=== PATIENT | female | born 1940 | race Caucasian/White ===

== ENCOUNTER → 2016-06-09 | Outpatient (CLI) | payer BC ==
[2016-06-09 16:44] LABS: BASO % 0.6 %; BASO ABS # 0.04 K/uL (0-0.2); COMPLETE YES; EOS % 4.2 %; HEMATOCRIT 33.8 % (37-47); IG% 0.3 %; LYMPH % 25.2 %; LYMPH ABS # 1.68 K/uL (1.2-3.4); MEAN CELL VOLUME 91.4 fL (80-100); MEAN CORPUSCULAR HEMOGLOBIN 29.7 pg (25-34); MEAN CORPUSCULAR HGB CONC 32.5 g/dl (32-36); MEAN PLATELET VOLUME 9.4 fL (7.4-10.4); MONO % 14.4 %; NEUT % 55.3 %; PLATELET COUNT 266 K/uL (130-400); WHITE BLOOD COUNT 6.66 K/uL (4.8-10.8)
[2016-06-09 16:51] LABS: ALT/SGPT 27 U/L (12-78); BLOOD UREA NITROGEN 26 mg/dl (7-18); BUN/CREATININE RATIO 23.7 (10-20); CALCIUM 8.5 mg/dl (8.5-10.1); CARBON DIOXIDE 26 mmol/L (21-32); CHLORIDE 108 mmol/L (98-107); CHOLESTEROL 245 mg/dl (0-200); GLUCOSE 77 mg/dl (70-99); POTASSIUM 3.9 mmol/L (3.5-5.1); SODIUM 140 mmol/L (136-145)
[2016-06-09 16:54] LABS: ALKALINE PHOSPHATASE 121 U/L (45-117); AST/SGOT 20 U/L (15-37); CHOLESTEROL/HDL RATIO 3.4; HDL CHOLESTEROL 73 mg/dl; LDL CHOLESTEROL CALCULATED 125 mg/dl; PHOSPHORUS 3.6 mg/dl (2.5-4.9); TRIGLYCERIDES 233 mg/dl (0-150); VERY LOW DENSITY LIPOPROT CALC 47 mg/dl
== END | disposition home or self-care (01) ==
LOC: C.LABPBG 13:49
PROVIDERS: ATTEND Internal Medicine
DX: M06.09 Rheumatoid arthritis without rheumatoid factor, multiple sites (principal); Z79.899 Other long term (current) drug therapy; N18.3 Chronic kidney disease, stage 3 (moderate)

== ENCOUNTER → 2016-09-22 | Outpatient (CLI) | payer BC ==
[2016-09-22 16:48] LABS: BASO % 0.7 %; BASO ABS # 0.04 K/uL (0-0.2); COMPLETE YES; EOS % 5.5 %; HEMATOCRIT 35.9 % (37-47); IG% 0.3 %; LYMPH % 22.3 %; LYMPH ABS # 1.34 K/uL (1.2-3.4); MEAN CELL VOLUME 90.9 fL (80-100); MEAN CORPUSCULAR HEMOGLOBIN 28.4 pg (25-34); MEAN CORPUSCULAR HGB CONC 31.2 g/dl (32-36); MONO % 12.3 %; NEUT % 58.9 %; PLATELET COUNT 302 K/uL (130-400); RED BLOOD COUNT 3.95 M/uL (4.2-5.4)
[2016-09-22 16:58] LABS: ALT/SGPT 29 U/L (12-78); AST/SGOT 23 U/L (15-37); BLOOD UREA NITROGEN 24 mg/dl (7-18); BUN/CREATININE RATIO 23.6 (10-20); CALCIUM 8.7 mg/dl (8.5-10.1); CARBON DIOXIDE 25 mmol/L (21-32); CHLORIDE 109 mmol/L (98-107); GLUCOSE 86 mg/dl (70-99); SODIUM 142 mmol/L (136-145)
[2016-09-22 17:08] LABS: ALB/GLOB RATIO 0.9 (0.9-2); ALKALINE PHOSPHATASE 116 U/L (45-117)
[2016-09-22 17:09] LABS: URINE PROTIEN/CREAT RATIO 0.2 (0-0.2); URINE TOTAL PROTEIN 24.9 mg/dl (0-11.9)
== END | disposition home or self-care (01) ==
LOC: C.LABPBG 11:51
PROVIDERS: ATTEND Internal Medicine
DX: R63.5 Abnormal weight gain (principal); N18.3 Chronic kidney disease, stage 3 (moderate); I10 Essential (primary) hypertension; M06.09 Rheumatoid arthritis without rheumatoid factor, multiple sites; Z79.899 Other long term (current) drug therapy

== ENCOUNTER → 2016-11-15 | Outpatient (CLI) | payer BC ==
[2016-11-15 12:23] LABS: BASO % 0.5 %; BASO ABS # 0.03 K/uL (0-0.2); COMPLETE YES; EOS % 0.2 %; HEMATOCRIT 33.6 % (37-47); IG% 0.2 %; LYMPH % 11.1 %; LYMPH ABS # 0.73 K/uL (1.2-3.4); MEAN CELL VOLUME 92.8 fL (80-100); MEAN CORPUSCULAR HEMOGLOBIN 29.8 pg (25-34); MEAN CORPUSCULAR HGB CONC 32.1 g/dl (32-36); MEAN PLATELET VOLUME 9.3 fL (7.4-10.4); MONO % 2.7 %; NEUT % 85.3 %; PLATELET COUNT 340 K/uL (130-400); RED BLOOD COUNT 3.62 M/uL (4.2-5.4); WHITE BLOOD COUNT 6.56 K/uL (4.8-10.8)
[2016-11-15 12:46] LABS: ALT/SGPT 26 U/L (12-78); BLOOD UREA NITROGEN 27 mg/dl (7-18); BUN/CREATININE RATIO 29.2 (10-20); CARBON DIOXIDE 24 mmol/L (21-32); CHLORIDE 109 mmol/L (98-107); CREATININE 0.93 mg/dl (0.60-1.20); GLUCOSE 133 mg/dl (70-99); POTASSIUM 4.2 mmol/L (3.5-5.1); SODIUM 139 mmol/L (136-145)
[2016-11-15 12:49] LABS: ALB/GLOB RATIO 0.9 (0.9-2); ALKALINE PHOSPHATASE 91 U/L (45-117); AST/SGOT 19 U/L (15-37)
== END | disposition home or self-care (01) ==
LOC: C.LABPBG 08:41
PROVIDERS: ATTEND Internal Medicine
DX: M06.09 Rheumatoid arthritis without rheumatoid factor, multiple sites (principal)

== ENCOUNTER → 2017-01-05 | Outpatient (CLI) | payer BC ==
[2017-01-05 17:12] LABS: BASO % 0.6 %; BASO ABS # 0.04 K/uL (0-0.2); COMPLETE YES; EOS % 9.2 %; HEMATOCRIT 33.4 % (37-47); IG% 0.6 %; LYMPH % 28.7 %; LYMPH ABS # 1.87 K/uL (1.2-3.4); MEAN CELL VOLUME 95.4 fL (80-100); MEAN CORPUSCULAR HEMOGLOBIN 30.3 pg (25-34); MEAN CORPUSCULAR HGB CONC 31.7 g/dl (32-36); MEAN PLATELET VOLUME 9.3 fL (7.4-10.4); MONO % 14.1 %; NEUT % 46.8 %; PLATELET COUNT 303 K/uL (130-400); WHITE BLOOD COUNT 6.51 K/uL (4.8-10.8)
[2017-01-05 17:24] LABS: ALT/SGPT 25 U/L (12-78); BLOOD UREA NITROGEN 20 mg/dl (7-18); CARBON DIOXIDE 25 mmol/L (21-32); CHLORIDE 109 mmol/L (98-107); CREATININE 1.09 mg/dl (0.60-1.20); GLUCOSE 94 mg/dl (70-99); POTASSIUM 3.6 mmol/L (3.5-5.1); SODIUM 141 mmol/L (136-145)
[2017-01-05 17:27] LABS: ALB/GLOB RATIO 1.1 (0.9-2); ALKALINE PHOSPHATASE 111 U/L (45-117); AST/SGOT 23 U/L (15-37)
== END | disposition home or self-care (01) ==
LOC: C.LABPBG 15:03
PROVIDERS: ATTEND Internal Medicine
DX: Z51.81 Encounter for therapeutic drug level monitoring (principal); Z79.899 Other long term (current) drug therapy; M06.09 Rheumatoid arthritis without rheumatoid factor, multiple sites; N18.3 Chronic kidney disease, stage 3 (moderate)

== ENCOUNTER 2017-03-23 17:34 | Inpatient (IN) | payer BC, OTHER ==
[~2017-03-23] VITALS: Ht 162.6 cm; Wt 69.7 kg
[2017-03-23] MEDS ORDERED: ACETAMINOPHEN IV 650 MG in EMPTY BAG 0 ML IV PRN (22:45)
[2017-03-23 23:08] LABS: BASO ABS # 0.04 K/uL (0-0.2); EOS % 2.6 %; EOS ABS # 0.11 K/uL (0-0.5); HEMATOCRIT 26.1 % (37-47); HEMOGLOBIN 8.3 g/dL (12.0-16.0); IG# 0.02 K/uL (0.00-0.02); LYMPH % 36.2 %; LYMPH ABS # 1.51 K/uL (1.2-3.4); MEAN CORPUSCULAR HEMOGLOBIN 30.9 pg (25-34); MEAN PLATELET VOLUME 8.5 fL (7.4-10.4); MONO % 12.2 %; MONO ABS # 0.51 K/uL (0.11-0.59); NEUT % 47.5 %; NEUT ABS # 1.98 K/uL (1.4-6.5); NUCLEATED RED BLOOD CELL ABS 0.03 K/uL (0-0); PLATELET COUNT 340 K/uL (130-400); RED CELL DISTRIBUTION WIDTH SD 58.5 fL (36.4-46.3); WHITE BLOOD COUNT 4.17 K/uL (4.8-10.8)
[2017-03-23] MEDS ORDERED: LEVO25TA PO (23:08)
[2017-03-23] MEDS ORDERED: BRIM0.2S OP (23:08)
[2017-03-23] MEDS ORDERED: DSY100 OR (23:08)
[2017-03-23] MEDS ORDERED: DVN80 PO (23:08)
[2017-03-23] MEDS ORDERED: NIFE60TA66 PO (23:08)
[2017-03-23] MEDS ORDERED: CRG625 OR (23:08)
[2017-03-23] MEDS ORDERED: LEFL20TA PO (23:08)
[2017-03-23] MEDS ORDERED: PANT40TA PO (23:08)
[2017-03-23] MEDS ORDERED: METH2.5T PO (23:08)
[2017-03-23] MEDS ORDERED: FLV1 OR (23:08)
[2017-03-23] MEDS ORDERED: PRD5 OR (23:08)
[2017-03-23] MEDS ORDERED: OXYC-57 PO (23:08)
[2017-03-23 23:12] VITALS: BMI 25.8
[2017-03-23 23:13] VITALS: BP 146/76; PULSE 72; TEMP 36.3; O2SAT 94
[2017-03-23] MEDS ORDERED: TRAZODONE HCL 50 MG TAB PO PRN (23:15)
[2017-03-23 23:20] LABS: MEAN CORPUSCULAR HGB CONC 31.8 g/dl (32-36)
[2017-03-23 23:24] VITALS: Ht 162.6 cm; Wt 69.7 kg
[2017-03-23 23:25] LABS: INR 1.1 (0.9-1.1); PTT PATIENT 24.3 SECONDS (21.0-31.0)
[2017-03-23 23:42] LABS: ALBUMIN 2.8 gm/dl (3.4-5.0); CALCIUM 8.6 mg/dl (8.5-10.1); CREATININE 1.05 mg/dl (0.60-1.20); POTASSIUM 3.6 mmol/L (3.5-5.1)
[2017-03-24] VITALS (8 sets, daily range): BP systolic 132–200; BP diastolic 75–97; PULSE 96–121; TEMP 36.6–36.8; O2SAT 95–100
[2017-03-24] MEDS: SODIUM CHLORIDE 0.9% 1000ML 1,000 ML IV SCH ×2 (00:06→11:46)
[2017-03-24] MEDS ORDERED: HEPARIN IV LOW DOSE NO BOLUS SCH (00:14)
[2017-03-24] MEDS: ONDANSETRON INJ 2 MG/ML 2 ML VIAL IV PRN ×3 (00:23→15:31)
[2017-03-24] MEDS ORDERED: HEPARIN 25,000 UNIT/500ML D5W 500 ML IV PRN (01:15)
--- NOTE | 2017-03-24 01:45 | History and Physical ---
History & Physical Date & Time of Service: Mar 24, 2017 at 01:37 Chief Complaint: Abdominal Pain Primary Care Physician: Kj Minor M.D. History of Present Illness Source: patient This is a 76 year old who was transferred as direct admission from [facility] after being treated for left lower quadrant abdominal pain with CT finding of diverticulosis. The primary reason for the transfer from [facility] as per the hospitalist physician who accepted the transfer at [facility] was that [facility] lacked specialty services such as Gastroenterology service. In addition patient was treated for hypokalemia with potassium supplements, hypertension, anemia workup. Other medical issues is rheumatoid arthritis for which patient takes methotrexate weekly and history of right lung nodule other history of pancreatitis in the past. In addition there is a H/P report from [facility] dated 01/19/18 that reported "Partial occlusive thrombosis within the superficial venous structures at the right popliteal fossa and left calf." When patient arrived to [facility], heparin drip was started due to this report of DVT. However, the ultrasound performed at [facility] of lower extremities and heparin drip was subsequently stopped Family History Hypertension FATHER Social History Smoking Status: Never Smoker Allergies Coded Allergies: Aspirin (Verified Allergy, Severe, ANAPHYLAXIS, 03/23/17) Home Medications Scheduled Brimonidine Tartrate-Timolol M (Combigan), 1 DROP OP BID Carvedilol (Carvedilol), 1 TAB OR BID Folic Acid (Folic Acid), 1 TAB OR DAILY Leflunomide (Arava), 1 TAB PO DAILY Levothyroxine Sodium (Synthroid), 25 MCG PO DAILY Methotrexate Sodium (Methotrexate), 2.5 MG PO WK Nifedipine (Nifedipine Er), 1 TAB PO DAILY Pantoprazole Sodium (Protonix), 40 MG PO DAILY Prednisone (Prednisone), 2.5 MG OR DAILY Valsartan (Diovan), 80 MG PO DAILY Scheduled PRN Oxycodone/Acetaminophen 5MG/325MG (Percocet 5MG/325MG), 1 TABLET PO Q6H PRN for Pain Trazodone HCl (Trazodone HCl), 50 MG OR DAILY PRN for Pain Review of Systems Constitutional: No fever Eyes: No worsening of vision, No eye pain, No redness, No discharge, No diplopia, No problem reported ENT: No hearing loss, No unusual epistaxis, No nasal symptoms, No sore throat, No tinnitus, No dental problems, No trouble swallowing, No problem reported Respiratory: No cough, No sputum, No wheezing, No shortness of breath, No dyspnea on exertion, No dyspnea at rest, No hemoptysis, No problem reported Cardiovascular: No chest pain, No orthopnea, No PND, No edema, No claudication , No palpitations, No problem reported Abdomen: + pain, + nausea, No vomiting, No diarrhea, No constipation, No GI bleeding Musculoskeletal: No joint pain, No muscle pain, No swelling, No calf pain, No problem reported Genitourinary - Female: No dysuria Neurologic: No paralysis, No numbness/tingling Psychiatric: No substance abuse Endocrine: No fatigue Hematologic / Lymphatic: No abnormal bleeding/bruising, No clotting problems Integumentary: No rash, No itch Physical Exam Vital Signs Date Time Temp Pulse Resp B/P (MAP) Pulse Ox O2 Delivery O2 Flow Rate FiO2 03/24/17 00:29 36.8 97 16 145/75 (98) 97 Room Air 03/24/17 00:00 Room Air 03/23/17 23:24 Room Air 03/23/17 23:13 36.3 72 18 146/76 (99) 94 Room Air General Appearance: no apparent distress Head: normocephalic, atraumatic Eyes: normal inspection, EOMI, sclerae normal ENT: normal ENT inspection, hearing grossly normal, pharynx normal Neck: supple, thyroid normal, no JVD, trachea midline Respiratory/Chest: chest non-tender, lungs clear, normal breath sounds, no respiratory distress, no accessory muscle use Cardiovascular: regular rate, rhythm, no edema, no JVD, normal peripheral pulses Abdomen/GI: normal bowel sounds, soft, + pertinent finding (tenderness of left lower quadrant) Back: normal inspection, no CVA tenderness, normal range of motion Extremities/Musculoskelatal: normal inspection, no calf tenderness, no pedal edema, non-tender Neurologic/Psych: no motor/sensory deficits, alert, normal mood/affect, oriented x 3 Skin: normal color, warm/dry, no rash Diagnostics Laboratory Results Results Past 24 Hours Test 03/23/17 22:56 Range/Units White Blood Count 4.17 4.8-10.8 K/uL Red Blood Count 2.69 4.2-5.4 M/uL Hemoglobin 8.3 12.0-16.0 g/dL Hematocrit 26.1 37-47 % Mean Corpuscular Volume 97.0 80-100 fL Mean Corpuscular Hemoglobin 30.9 25-34 pg Mean Corpuscular Hemoglobin Concent 31.8 32-36 g/dl Platelet Count 340 130-400 K/uL Mean Platelet Volume 8.5 7.4-10.4 fL Neutrophils (%) (Auto) 47.5 % Lymphocytes (%) (Auto) 36.2 % Monocytes (%) (Auto) 12.2 % Eosinophils (%) (Auto) 2.6 % Basophils (%) (Auto) 1.0 % Neutrophils # (Auto) 1.98 1.4-6.5 K/uL Lymphocytes # (Auto) 1.51 1.2-3.4 K/uL Monocytes # (Auto) 0.51 0.11-0.59 K/uL Eosinophils # (Auto) 0.11 0-0.5 K/uL Basophils # (Auto) 0.04 0-0.2 K/uL RDW Standard Deviation 58.5 36.4-46.3 fL RDW Coefficient of Variation 17.0 11.5-14.5 % Immature Granulocyte % (Auto) 0.5 % Immature Granulocyte # (Auto) 0.02 0.00-0.02 K/uL Nucleated RBC Absolute Count (auto) 0.03 0-0 K/uL Nucleated Red Blood Cells % 0.8 % Polychromasia 1+ Anisocytosis PRESENT Prothrombin Time 11.1 9.0-12.0 SECONDS Prothromb Time International Ratio 1.1 0.9-1.1 Activated Partial Thromboplast Time 24.3 21.0-31.0 SECONDS Partial Thromboplastin Ratio 0.9 Sodium Level 140 136-145 mmol/L Potassium Level 3.6 3.5-5.1 mmol/L Chloride Level 112 98-107 mmol/L Carbon Dioxide Level 20 21-32 mmol/L Anion Gap 8.0 3-11 mmol/L Blood Urea Nitrogen 16 7-18 mg/dl Creatinine 1.05 0.60-1.20 mg/dl Est Creatinine Clear Calc Drug Dose 44.6 ml/min Estimated GFR () 60.6 Estimated GFR (Non- 52.3 BUN/Creatinine Ratio 15.0 10-20 Random Glucose 105 70-99 mg/dl Lactic Acid Level 0.7 0.4-2.0 mmol/L Calcium Level 8.6 8.5-10.1 mg/dl Magnesium Level 1.9 1.8-2.4 mg/dl Total Bilirubin 0.5 0.2-1 mg/dl Aspartate Amino Transf (AST/SGOT) 19 15-37 U/L Alanine Aminotransferase (ALT/SGPT) 23 12-78 U/L Alkaline Phosphatase 82 45-117 U/L Total Protein 6.0 6.4-8.2 gm/dl Albumin 2.8 3.4-5.0 gm/dl Globulin 3.2 2.5-4.0 gm/dl Albumin/Globulin Ratio 0.9 0.9-2 Impression Assessment and Plan This is a 76 year old who was transferred as direct admission from [facility] after being treated for left lower quadrant abdominal pain with CT finding of diverticulosis. The primary reason for the transfer from [facility] as per the hospitalist physician who accepted the transfer at [facility] was that [facility] lacked specialty services such as Gastroenterology service. In addition patient was treated for hypokalemia with potassium supplements, hypertension, anemia workup. Other medical issues is rheumatoid arthritis for which patient takes methotrexate weekly and history of right lung nodule other history of pancreatitis in the past. In addition there is a H/P report from [facility] dated 01/19/18 that reported "Partial occlusive thrombosis within the superficial venous structures at the right popliteal fossa and left calf." When patient arrived to [facility], heparin drip was started due to this report of DVT. However, the ultrasound performed at [facility] of lower extremities and heparin drip was subsequently stopped -Gastroenterology appreciated for further evaluation of left lower quadrant pain , diverticulosis -NPO except medications for now -Patient is hemodynamically stable and blood pressure is within normal parameters. Will continue patients home oral medications as documented from [facility]. Apparently blood pressure was difficult to control in [facility] and catecholamines/metanephrines were being collected. have ordered 24 hour urine metanephrine to be collected -May also be possible that hypertension exacerbated by pain. Continue home trazodone. Will hold off narcotics at this time as this can increase risk of ileus. Patient has Percocet listed as part of home medications. IV acetaminophen ordered -If pain becomes significantly worse or concern for bowel obstruction, then additional imaging should be done and possibly consult general surgery. -DVT ppx with heparin subcut for now. IV heparin was discontinued as no apparent DVT found on lower extremity doppler imaging at [facility] on this admission -Anemia, trend CBC -Hypokalemia at [facility] now improved. Admission serum potassium at [facility] is 3.6. Level of Care Telemetry Advanced Directives Existing Living Will: Yes Existing Power of Geothermal Hvac Technician: Yes VTE Prophylaxis VTE Risk Assessment Done? Y/N: Yes Risk Level: High
--- NOTE | 2017-03-24 05:50 | DIAGNOSTIC IMAGING REPORT ---
VENOUS DOPPLER LWR EXT BILA HISTORY: Pain. Edema. identify DVTs COMPARISON STUDY: 03/21/2007 FINDINGS: There is normal compressibility, flow, and augmentation within the bilateral lower extremity deep venous systems. IMPRESSION: No DVT within the right or left lower extremity. The above report was generated using voice recognition software. It may contain grammatical, syntax or spelling errors. Electronically signed by: Enoch Gonzalez M.D. 03/24/2017 5:49 AM Dictated Date/Time: 03/24/2017 5:48 AM
[2017-03-24] MEDS: LEVOTHYROXINE 25 MCG TAB PO SCH (06:05)
[2017-03-24] MEDS: COMBIGAN~ORDER AWAITING ACTION SCH ×2 (08:00→15:31)
[2017-03-24] MEDS: CARVEDILOL 6.25 MG TAB PO SCH ×2 (08:58→20:22)
[2017-03-24] MEDS: PANTOprazole SOD 40 MG TAB PO SCH (08:58)
[2017-03-24] MEDS: NIFEdipine 30 MG CR TAB PO SCH (08:59)
[2017-03-24] MEDS: VALSARTAN 80 MG TAB PO SCH (09:00)
[2017-03-24] MEDS: HEPARIN SOD 5000 UNIT/0.5 ML CARP SQ SCH ×2 (09:07→20:25)
[2017-03-24] MEDS ORDERED: MoRPHine SULFATE 2 MG/ML CARP IV PRN ×2 (12:00)
[2017-03-24] MEDS: HydrALAZINE HCL 20 MG/ML VIAL IV. PRN (12:20)
--- NOTE | 2017-03-24 14:05 | GASTROINTESTINAL CONSULTATION ---
DATE OF CONSULTATION: 03/24/2017 DATE OF CONSULTATION: 03/24/2017 ATTENDING PHYSICIAN: Dr. Leiva. CONSULTING PHYSICIAN: Dr. Anaya. REASON FOR CONSULTATION: Abdominal pain, diverticulosis. HISTORY OF PRESENT ILLNESS: Jossy Padron is a 76-year-old female who presented to [facility] yesterday with complaints of left lower quadrant abdominal pain. She underwent a CT scan while there and was found to have diverticulosis. She was also noted to have hypokalemia and severe hypertension and was subsequently transferred to [facility] for these symptoms. She was briefly started on heparin therapy while hospitalized here secondary to reported DVT, though lower extremity Dopplers were performed upon arrival and were negative. Upon arrival here, she was noted to have an H&H of 8.3 and 26.1. Her MCV was normal at 97. Her PT and INR were 11.1 and 1.1. Sodium 140, potassium 3.6, chloride 112, bicarbonate 20, BUN 16, creatinine 1.05 and random blood glucose 105. Her liver panel was unremarkable. At the time that I saw the patient, she was without abdominal complaints. She said that she has had intermittent left lower quadrant abdominal pain which she describes as cramping, 4/10 in intensity, occurring once or twice daily with no alleviating or exacerbating factors. She has never undergone a colonoscopy in the past. She has been anemic and review of her medical record since January 2016 does show a history of anemia with an H&H at that time of 11.2 and 34.4. The patient herself denies any history of bright red blood per rectum. She has had no melena and she further denies any hematochezia. She has had an elevated blood pressure since her arrival at [facility] and has had symptomatic headache from this during this hospitalization. She denies any nausea or vomiting. She further denies any jaundice, acholic stools, dark urine, pruritus or other complaints. PAST MEDICAL HISTORY: Includes proteinuria, hypertension, hypothyroidism, chronic anemia, right lung nodule, history of pancreatitis, rheumatoid arthritis. PAST SURGICAL HISTORY: None. ALLERGIES: ASPIRIN. MEDICATIONS AT PRESENT: Hydralazine 10 mg IV q. 8 p.r.n. systolic blood pressure greater than 160, morphine 1 mg IV q. 4 hours p.r.n. pain, morphine 2 mg IV q. 4 p.r.n. severe pain, Coreg 6.25 mg p.o. b.i.d., folic acid 1 mg p.o. daily, prednisone 2.5 mg p.o. daily, Diovan 80 mg p.o. daily, Procardia-XL 60 mg p.o. q.a.m., Protonix 40 mg p.o. daily, heparin 5,000 units subQ q. 12, Synthroid 25 mcg p.o. daily, Desyrel 50 mg p.o. daily p.r.n. pain, Tylenol 650 mg p.o. q. 6 hours p.r.n. pain or fever, Zofran 4 mg IV q. 4 p.r.n. nausea. SOCIAL HISTORY: She denies any tobacco, alcohol or illicit drug use. FAMILY HISTORY: Negative for GI malignancy or inflammatory bowel disease. REVIEW OF SYSTEMS: Negative x10 system review other than pertinent positives listed in the HPI. PHYSICAL EXAMINATION: VITAL SIGNS: Temperature 36.7, pulse 102, respirations 20, blood pressure 191/93, pulse ox 100% on room air. GENERAL EXAMINATION: Awake, cooperative, chronic ill appearing, in no acute distress. HEAD: Normocephalic, atraumatic. EYES: Pupils equally round. Extraocular muscles are intact. Sclerae are nonicteric. EARS, NOSE, THROAT: External evaluation of ears and nose are normal. Oropharynx is clear. NECK: Soft, supple. No JVD or lymphadenopathy. CHEST: Clear to auscultation bilaterally. CARDIOVASCULAR SYSTEM: Regular rate and rhythm. ABDOMEN: Soft, nontender, nondistended. Positive bowel sounds. There is no hepatosplenomegaly or stigmata of chronic liver disease. EXTREMITIES: No clubbing, cyanosis, or edema. LABORATORY STUDIES: From today reviewed in the HPI. IMPRESSION: A 76-year-old female with intermittent left lower quadrant abdominal pain, CT imaging showing diverticulosis and uncontrolled blood pressure. PLAN: At the present time, I believe that the patient's primary problem is her hypertension which is currently controlled and she has had headaches from this. I believe that the most important thing at this time is to have her blood pressure controlled. In regards to her anemia she states that she has been anemic for "25 years". She has never undergone a colonoscopy in the past. She has had no overt GI blood loss. Would recommend that she undergo both an upper endoscopy and a colonoscopy, though this can be performed as an outpatient upon time of her discharge. I do not believe that it is the reason for her hospitalization at present nor do I believe that it is urgent that she have testing such as this done at this time. If she would have overt GI bleeding decision could be made to perform these tests on a more emergent basis. I will follow her clinical course. I will make further recommendations as needed. I will recommend that she be placed on Protonix 40 mg p.o. daily and I will follow her clinical course.
[2017-03-24] MEDS: FLUTICASONE PROPIONATE NA SPR 16 GM BTL SCH ×2 (17:02→23:08)
--- NOTE | 2017-03-24 19:07 | Progress Note ---
Internal Med Progress Note Date of Service: Mar 24, 2017. Provider Documentation: SUBJECTIVE: very tearful and anxious complains of pain on left lower quadrant , constant 6/10 as a spasm has persisted nausea ( been chronic for months ) no vomiting her pain complain is discomfort on both legs -feels her legs are getting swollen , burning constantly shooting pain going down worried about her blood pressure being so high ordered for clear diet , says every time she is trying to eat something having liquid diarrhea worried that something seriously wrong with her Brother and sister present at bedside -says pt always been a very anxious person , recent Hospital admissions made her symptoms worse pt complains of pain every where , in back ( which is chronic ) , abdomen but worse discomfort is her both legs , can not keep still , mention of poor sleep , staying up at night worrying about her health very tearful-does not want to be like this , wants to get better to have a normal life OBJECTIVE: Vital Signs-as noted below Exam: General-very anxious , appears to be younger than her stated age Eyes-sclera non icteric, PERRLA/EOMI ENT-moist oral mucosa Neck-no thyromegaly , trachea mid line Lungs-CTA , no wheeze or rales Heart-regular S1/S2 Abdomen-soft , minimum tenderness on left lower quadrant , no rebound , no voluntary rigidity , bowel sound active Extremities-no rash or deformity , both lower extremity -normal exam , no edema , no erythema , no increased warmth notes, skin intact pt report subjective felling of legs getting bigger /swollen chronic deformity in both hand /phalangeal joint due to RA Neuro-no focal neurological deficit , normal strength of extremities , sensation intact Lab data as noted below. ASSESSMENT & PLAN: LEFT LOWER QUADRANT ABDOMINAL PAIN ; presented to [facility] with complain of left lower quadrant pain constant associated with nausea no vomiting pain is worse after eating , loose bowel movement after each meals CT abdomen /pelvis in [facility] -Diverticulosis , no evidence of inflammation or diverticulitis pt never had colonoscopy in past possible irritable bowel ? will order for Flexeril for intermittent spasm GI eval requested appreciated input recommend out pt colonoscopy diet advanced to clears -will be advanced to low residue as tolerated HYPERTENSIVE URGENCY : pt has been on multiple antihypertensive medication continued will check ECHO to assess hypertensive heart disease PRN Ativan ordered for anxiety ANXIETY DISORDER : pt mentions of being very anxious ,poor sleep , worried about everything anxious about all her symptoms constantly Pt mentions she always been worried and stressed with every day life never requested counselling or Psychiatric help -as it will maker her looking : weak" wiling to have Psychiatry consultation and trial of SSRI Psych consult requested INSOMNIA : due to above cont Trazodone, PRN Ativan ordered LEG NUMBNESS /PAIN : 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 mentions of having sharp/shooting pain going down to feet no hx of neuropathy /or DM ordered for Requip lower ext Doppler negative for DVT ANEMIA : appears to be chronic no report of dark stool or blood in stool ordered for Fe study , stool for heme occult GI following recommends out pt EGD /Colonoscopy stool heme occult ordered FULL CODE DVT PROPHYLAXIS sub q heparin DISPOSITION discharge home when medically stable Medicine follow up with Dr Minor will need out pt GI followup for EGD /Colonoscopy Vital Signs: Date Time Temp Pulse Resp B/P (MAP) Pulse Ox O2 Delivery O2 Flow Rate FiO2 03/25/17 01:44 98 169/71 (103) 03/25/17 00:00 Room Air 03/24/17 23:40 36.8 96 18 175/75 (108) 98 Room Air 03/24/17 20:00 Room Air 03/24/17 19:52 36.8 100 18 177/91 (119) 96 Room Air 03/24/17 16:27 Room Air 03/24/17 15:16 36.7 101 18 156/82 (106) 96 Room Air 03/24/17 13:00 168/77 (107) 03/24/17 12:01 Room Air 03/24/17 11:32 36.7 102 20 191/93 (125) 100 Room Air 03/24/17 08:00 Room Air 03/24/17 07:53 36.6 107 18 200/97 (131) 96 185/93 (123) Lab Results: Results Past 24 Hours Test 03/25/17 05:44 Range/Units
[2017-03-24] MEDS: LORAZEPAM 1 MG TAB PO PRN (20:21)
[2017-03-24] MEDS: ROPINIROLE HCL 0.25 MG TAB PO SCH (20:22)
[2017-03-24] MEDS ORDERED: TRAZODONE HCL 50 MG TAB PO SCH (21:00)
[2017-03-25] VITALS (7 sets, daily range): BP systolic 95–169; BP diastolic 62–80; PULSE 88–100; TEMP 36.5–36.9; O2SAT 96–99
[2017-03-25] MEDS: HydrALAZINE HCL 20 MG/ML VIAL IV. PRN (01:44)
[2017-03-25] MEDS ORDERED: CLONIDINE HCL 0.1 MG TAB PO PRN (06:30)
[2017-03-25] MEDS: LEVOTHYROXINE 25 MCG TAB PO SCH (06:31)
[2017-03-25] MEDS: COMBIGAN~ORDER AWAITING ACTION SCH ×3 (08:00→16:00)
[2017-03-25 08:04] LABS: HEMATOCRIT 24.1 % (37-47); HEMOGLOBIN 7.8 g/dL (12.0-16.0); MEAN CORPUSCULAR HEMOGLOBIN 31.7 pg (25-34); MEAN CORPUSCULAR HGB CONC 32.4 g/dl (32-36); MEAN PLATELET VOLUME 8.7 fL (7.4-10.4); PLATELET COUNT 286 K/uL (130-400); RED CELL DISTRIBUTION WIDTH CV 17.4 % (11.5-14.5); RED CELL DISTRIBUTION WIDTH SD 60.5 fL (36.4-46.3); WHITE BLOOD COUNT 6.24 K/uL (4.8-10.8)
[2017-03-25] MEDS: VALSARTAN 80 MG TAB PO SCH (08:31)
[2017-03-25] MEDS: FLUTICASONE PROPIONATE NA SPR 16 GM BTL SCH ×2 (08:31→20:36)
[2017-03-25] MEDS: NIFEdipine 30 MG CR TAB PO SCH (08:33)
[2017-03-25] MEDS: CYCLOBENZAPRINE HCL 5 MG TAB PO SCH ×2 (08:33→13:16)
[2017-03-25] MEDS: PANTOprazole SOD 40 MG TAB PO SCH (08:34)
[2017-03-25] MEDS: HYDROCODONE/ACETAMI 10/325 TAB PO PRN ×3 (08:39→22:11)
[2017-03-25] MEDS: LORAZEPAM 1 MG TAB PO PRN ×2 (08:40→20:36)
[2017-03-25 08:41] LABS: CALCIUM 8.5 mg/dl (8.5-10.1); CREATININE 0.94 mg/dl (0.60-1.20); POTASSIUM 3.1 mmol/L (3.5-5.1)
[2017-03-25] MEDS: HEPARIN SOD 5000 UNIT/0.5 ML CARP SQ SCH ×2 (08:42→20:50)
[2017-03-25] MEDS ORDERED: PANTOprazole SOD 40 MG TAB PO SCH (09:00)
[2017-03-25] MEDS ORDERED: METOPROLOL TARTRATE 25 MG TAB PO SCH (09:00)
--- NOTE | 2017-03-25 11:05 | PROGRESS NOTE ---
DATE: 03/25/2017 RACE: . SUBJECTIVE: I had the pleasure of seeing Jossy Padron today at her bedside. She has had an improvement in her left lower quadrant abdominal pain. Her blood pressure continues to remain with labile with readings in the systolic range from the 150s-190s over the last 24 hours. She states that she did have a bowel movement. She denies any hematochezia, melena or hematemesis and has been tolerating p.o. intake. She denies any further complaints. PHYSICAL EXAMINATION: Includes: VITAL SIGNS: Temp 36.8, pulse 98, respirations 18, blood pressure 169/71, pulse ox 98% on room air. GENERAL: She is awake, cooperative, in no acute distress. ABDOMEN: Soft, mildly tender in left lower quadrant. Nondistended. Positive bowel sounds. LABORATORY STUDIES: Include an H&H 7.8 and 24.1, platelet count is 286, MCV is 98 and white blood cell count is 6.24. Iron is 77, TIBC 216, ferritin 431.8. IMPRESSION: A 76-year-old female with labile hypertension and left lower quadrant abdominal pain and normocytic anemia without overt gastrointestinal bleeding. PLAN: My recommendations to be that the patient continue to receive care for her labile hypertension. She should undergo outpatient endoscopic workup as she has never had a colonoscopy in the past for screening purposes though I do not believe it would add anything to her immediate care. I will defer this to an outpatient test. I would recommend advancing her diet as tolerated. I would continue supportive care. I will follow her clinical course and make further recommendations as needed. Once again, thanks for allowing me to participate in the care of this patient. If you have any further questions, please do not hesitate in contacting me.
[2017-03-25] MEDS ORDERED: POTASSIUM CHLORIDE 20 MEQ TABCR PO STA (11:15)
--- NOTE | 2017-03-25 11:32 | Progress Note ---
Internal Med Progress Note Date of Service: Mar 25, 2017. Provider Documentation: SUBJECTIVE: Blood pressure remains elevated very tearful and upset over room mate being loud and keeping TV all night wants to be moved out to Tele abdominal pain has much improved , no nausea tolerating diet , like to advance to full liquid denies of any headache , no SOB , palpitation , no chest discomfort OBJECTIVE: Vital Signs-as noted below Exam: General-very anxious , appears to be younger than her stated age Eyes-sclera non icteric, PERRLA/EOMI ENT-moist oral mucosa Neck-no thyromegaly , trachea mid line Lungs-CTA , no wheeze or rales Heart-regular S1/S2 Abdomen-soft , non tender , no rebound , no voluntary rigidity , bowel sound active Extremities-no rash or deformity , both lower extremity -normal exam , no edema , no erythema , chronic deformity in both hand /phalangeal joint due to RA Neuro-no focal neurological deficit , normal strength of extremities , sensation intact Lab data as noted below. ASSESSMENT & PLAN: LEFT LOWER QUADRANT ABDOMINAL PAIN : improved presented to [facility] with complain of left lower quadrant pain constant associated with nausea no vomiting pain is worse after eating , loose bowel movement after each meals CT abdomen /pelvis in [facility] -Diverticulosis , no evidence of inflammation or diverticulitis pt never had colonoscopy in past possible irritable bowel symptom ordered Flexeril TID for muscle spasm GI eval requested appreciated input recommend out pt colonoscopy HYPERTENSIVE URGENCY : pt has been on multiple antihypertensive medication Coreg 6.25/Diovan 80 mg /Nifedipine 60 mg BP remains persistently elevated pt denies of any feeling of headache /SOB or LUNA Cardiology eval requested ECHO ordered to assess hypertensive heart disease PRN Ativan ordered for anxiety ANXIETY DISORDER : pt mentions of being very anxious ,poor sleep , worried about everything anxious about all her symptoms constantly Pt mentions she always been worried and stressed with every day life never requested counselling or Psychiatric help -as it will maker her looking : weak" wiling to have Psychiatry consultation and trial of SSRI Psych consult requested INSOMNIA : due to above cont Trazodone, PRN Ativan ordered LEG NUMBNESS /PAIN : 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 mentions of having sharp/shooting pain going down to feet no hx of neuropathy /or DM ordered for Requip -pt reports improvement of symptom lower ext Doppler negative for DVT ANEMIA : due to anemia of chronic disease -RA MCV 98 , on Mtx /folic acid no report of dark stool or blood in stool GI consult appreciated recommends out pt EGD /Colonoscopy FULL CODE DVT PROPHYLAXIS sub q heparin DISPOSITION discharge home when medically stable Medicine follow up with Dr Minor will need out pt GI followup for EGD /Colonoscopy Vital Signs: Date Time Temp Pulse Resp B/P (MAP) Pulse Ox O2 Delivery O2 Flow Rate FiO2 03/25/17 08:00 Room Air 03/25/17 01:44 98 169/71 (103) 03/25/17 00:00 Room Air 03/24/17 23:40 36.8 96 18 175/75 (108) 98 Room Air 03/24/17 20:00 Room Air 03/24/17 19:52 36.8 100 18 177/91 (119) 96 Room Air 03/24/17 16:27 Room Air 03/24/17 15:16 36.7 101 18 156/82 (106) 96 Room Air 03/24/17 13:00 168/77 (107) 03/24/17 12:01 Room Air Lab Results: Results Past 24 Hours Test 03/25/17 07:19 Range/Units White Blood Count 6.24 4.8-10.8 K/uL Red Blood Count 2.46 4.2-5.4 M/uL Hemoglobin 7.8 12.0-16.0 g/dL Hematocrit 24.1 37-47 % Mean Corpuscular Volume 98.0 80-100 fL Mean Corpuscular Hemoglobin 31.7 25-34 pg Mean Corpuscular Hemoglobin Concent 32.4 32-36 g/dl RDW Standard Deviation 60.5 36.4-46.3 fL RDW Coefficient of Variation 17.4 11.5-14.5 % Platelet Count 286 130-400 K/uL Mean Platelet Volume 8.7 7.4-10.4 fL Sodium Level 142 136-145 mmol/L Potassium Level 3.1 3.5-5.1 mmol/L Chloride Level 112 98-107 mmol/L Carbon Dioxide Level 21 21-32 mmol/L Anion Gap 9.0 3-11 mmol/L Blood Urea Nitrogen 18 7-18 mg/dl Creatinine 0.94 0.60-1.20 mg/dl Est Creatinine Clear Calc Drug Dose 50.3 ml/min Estimated GFR () 69.3 Estimated GFR (Non- 59.8 BUN/Creatinine Ratio 19.0 10-20 Random Glucose 78 70-99 mg/dl Calcium Level 8.5 8.5-10.1 mg/dl Iron Level 77 35-150 mcg/dl Total Iron Binding Capacity 216 250-450 mcg/dl Ferritin 431.8 8.0-388.0 ng/ml Thyroid Stimulating Hormone (TSH) 4.180 0.300-4.500 uIu/ml
--- NOTE | 2017-03-25 14:50 | CARDIOLOGY CONSULTATION ---
DATE OF CONSULTATION: 03/25/2017 The patient seen and examined. Chart, medications and laboratory studies were reviewed. REFERRING: Dr. Walden. PRIMARY CARE PHYSICIAN: Dr. Minor. INDICATIONS: Labile hypertension. HISTORY OF PRESENT ILLNESS: The patient is a complex 76-year-old female who carries an underlying history of longstanding hypertension, rheumatoid arthritis on chronic immunosuppressive therapy with methotrexate and prednisone, chronic anemia, past difficulties with abdominal discomfort and diverticulosis, per reports; the patient notes recent symptoms of weakness and fatigue, was seen in the outpatient setting on 03/15/2017 by primary care physician and carvedilol was reduced with persistent symptoms. She had been seen in the Emergency Room for symptoms of abdominal pain and discomfort and was referred for further evaluation at [facility]. On initial presentation, the patient was markedly hypertensive. She "felt horrible" although feels improved this morning. Notes blood pressures came under control with single dose of IV hydralazine and morphine as well as well as switch from carvedilol to metoprolol. Blood pressures remain elevated though are improved. She notes no syncope or near syncope. Notes no prior history of cardiac disease. Notes no history of rheumatic fever, scarlet fever, renal or hepatic disease. She has undergone secondary to hypertensive workup in the past. Echocardiogram from this morning is pending. ALLERGIES: ASPIRIN. MEDICATIONS: Prior to hospitalization per report reveals Combigan eyedrops, carvedilol 6.25 mg 1 tablet twice per day though patient notably reduced at 3.125 mg twice per day, folic acid 1 mg per day, Arava 20 mg daily, levothyroxine 25 mcg per day, methotrexate 2.5 mg weekly, nifedipine 60 mg per day, pantoprazole 40 mg p.o. daily, prednisone 2.5 mg p.o. daily, trazodone p.r.n., and valsartan 80 mg per day. PAST SURGICAL HISTORY: Notable for prior laparoscopic cholecystectomy, tonsillectomy, and hysterectomy. FAMILY HISTORY: Notable for arthritic issues, coronary disease in parents in later years at 86 and 87. SOCIAL HISTORY: The patient is a lifelong nonsmoker, uses 1-2 alcoholic beverages per week. Predominant limitations of arthritis. 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 PHYSICAL EXAMINATION: VITAL SIGNS: Current heart rate is 98. Blood pressure is 169/71, on last vital signs documented. HEENT: Normocephalic, atraumatic. Nares without discharge. Throat was clear. NECK: Supple without thyromegaly, lymphadenopathy, JVD. There are no carotid bruits. LUNGS: Clear to auscultation. CARDIOVASCULAR: Regular with normal S1, S2. There is no audible murmur or rub. PMI is nondisplaced. ABDOMEN: Soft. EXTREMITIES: Without cyanosis or clubbing. There is no peripheral edema. IMAGING DATA: Venous Doppler revealed no DVT. LABORATORY STUDIES: White cell count is 4.1, hemoglobin is 8.3 and on repeat this morning was 7.8, platelet count is 286,000. Sodium is 142, potassium is 3.1, chloride is 112, bicarbonate is 21, BUN is 9, creatinine 0.94. TSH is 4.1. IMPRESSION: A 76-year-old female with longstanding labile hypertension with recent clinical decline for multifactorial etiology complaints. Blood pressure was significantly elevated on Emergency Room presentation, though notes labile blood pressures at home. RECOMMENDATIONS: Heart rates remain elevated. The patient has short KS interval and a transient run of atrial tachycardia since maintained on telemetry. The patient will require ongoing beta lorenzo. Will continue metoprolol and will increase dose to 50 mg twice per day while in hospital though this may ultimately require reduction. In the interim, we will also increase valsartan to 80 mg twice per day, continuing nifedipine. The patient would have low threshold for transfusion in this patient with declining hemoglobins, chronic anemia. Echocardiograms were ordered and will be reviewed. Discussed in detail with the patient, potassium has been ordered to be supplemented.
--- NOTE | 2017-03-25 15:23 | DIAGNOSTIC IMAGING REPORT ---
CHEST AND ABDOMEN 2 VIEWS HISTORY: Generalized abdominal pain. COMPARISON: None. FINDINGS: The lungs are clear. The heart is normal in size. No pleural effusions. No pneumothorax. Right lateral third and fourth rib fractures. Mild thickening of the adjacent pleura which is likely reactive. There is also a displaced fracture within the distal right clavicle. This demonstrates up to 1.5 cm of displacement. Cholecystectomy. No pneumoperitoneum. No pneumatosis. The bowel gas pattern is unremarkable. No evidence for bowel obstruction. No renal or ureteral calculi. IMPRESSION: 1. Unremarkable bowel gas pattern. No evidence for bowel obstruction. 2. Fractures involving the distal right clavicle and right lateral third and fourth ribs. No pneumothorax. Electronically signed by: Guzman Sparks M.D. 03/25/2017 3:22 PM Dictated Date/Time: 03/25/2017 3:19 PM
[2017-03-25] MEDS ORDERED: VALSARTAN 80 MG TAB PO SCH (17:00)
--- NOTE | 2017-03-25 18:49 | Psychiatric Consultation ---
Consultation Date of Consultation Mar 25, 2017. Identifying Data Jossy is a 76 yo female from [place] who was a direct admit from [facility] for abdominal complaints. Consultation is by Dr. Walden for depression. Chief Complaint "yeah anxiety doesn't help". History of Present Illness patient hasn't been feeling well in January and February. She has been weak and nauseated. This has disrupted her sleep and appetite. She worries about her pets and got kittens "even though my friends thought it was too much". She moved alot of her kitchen around in anticipation of getting new [place] but the cost was too much and she hasn't been able to have the energy to get everything put back. She wants to get a cleaning lady. She remains connected to her friends, some seasonal dip in mood as can't garden. She does have 13 cats. She was started on trazodone 2 weeks ago and states that it hasn't done anything and she doesn't want to take it as she gets up at night and doesn't want to fall. PHQ-9=8. Past Psychiatric History Current OP Treatment: no current treatment Prior OP Treatment: no prior treatment Prior Psych Hospitalizations: none Access to a Gun: No Suicide Attempts: No Past Medication Trials unsure of names Past Medical/Surgical History anemia, arthritis, fell in Nov and hit head Allergies Allergies: Coded Allergies: Aspirin (Verified Allergy, Severe, ANAPHYLAXIS, 03/23/17) Home Medications Scheduled Brimonidine Tartrate-Timolol M (Combigan), 1 DROP OP BID Carvedilol (Carvedilol), 1 TAB OR BID Folic Acid (Folic Acid), 1 TAB OR DAILY Leflunomide (Arava), 1 TAB PO DAILY Levothyroxine Sodium (Synthroid), 25 MCG PO DAILY Methotrexate Sodium (Methotrexate), 2.5 MG PO WK Nifedipine (Nifedipine Er), 1 TAB PO DAILY Pantoprazole Sodium (Protonix), 40 MG PO DAILY Prednisone (Prednisone), 2.5 MG OR DAILY Valsartan (Diovan), 80 MG PO DAILY Scheduled PRN Oxycodone/Acetaminophen 5MG/325MG (Percocet 5MG/325MG), 1 TABLET PO Q6H PRN for Pain Trazodone HCl (Trazodone HCl), 50 MG OR DAILY PRN for Pain Family History Hypertension FATHER Psychiatric History: Yes (mother ?depression or bipolar) Alcohol Use Alcohol Use In Past 12 Months: No Smoking Use Smoking Status: Never Smoker Substance History denied Personal History Education: graduated from high school, other (clerical degree from business school) Work History: retired [employer], works every other weekend part-time for [employer] Relationship History: never Children: none Legal History: none Psychological Trauma History: Denies Hx Traumatic Event Review of Systems Psych: denies symptoms other than stated above Constitutional: denied Cardiovascular: denied GI: abdominal discomfort Neurologic: denied Remainder of 10 body systems also reviewed and denied other than noted above. Examination Vital Signs Vital Signs Past 12 Hours Date Time Temp Pulse Resp B/P (MAP) Pulse Ox O2 Delivery O2 Flow Rate FiO2 03/25/17 16:00 99 Room Air 03/25/17 15:46 36.6 95 16 157/80 (105) 99 Room Air 03/25/17 12:01 Room Air 03/25/17 08:00 Room Air Laboratory Results Last 24 Hours Test 03/25/17 07:19 White Blood Count 6.24 K/uL Red Blood Count 2.46 M/uL Hemoglobin 7.8 g/dL Hematocrit 24.1 % Mean Corpuscular Volume 98.0 fL Mean Corpuscular Hemoglobin 31.7 pg Mean Corpuscular Hemoglobin Concent 32.4 g/dl RDW Standard Deviation 60.5 fL RDW Coefficient of Variation 17.4 % Platelet Count 286 K/uL Mean Platelet Volume 8.7 fL Sodium Level 142 mmol/L Potassium Level 3.1 mmol/L Chloride Level 112 mmol/L Carbon Dioxide Level 21 mmol/L Anion Gap 9.0 mmol/L Blood Urea Nitrogen 18 mg/dl Creatinine 0.94 mg/dl Est Creatinine Clear Calc Drug Dose 50.3 ml/min Estimated GFR () 69.3 Estimated GFR (Non- 59.8 BUN/Creatinine Ratio 19.0 Random Glucose 78 mg/dl Calcium Level 8.5 mg/dl Iron Level 77 mcg/dl Total Iron Binding Capacity 216 mcg/dl Ferritin 431.8 ng/ml Thyroid Stimulating Hormone (TSH) 4.180 uIu/ml Mental Examination During interview pt is: alert and oriented Appearance: appropriately groomed Eye contact is: good Motor behavior is: no abnormal motor movements Speech: normal in rate, rhythm & volume Affect: anxious Mood is: anxious Thought process: circumstantial Thought content: reality based without delusions Suicidal thought are: denied Homicidal thoughts are: denied Hallucinations: denies auditory, denies visual Cognition: memory grossly intact, attention grossly intact, language grossly intact Intelligence estimated to be: consistent with level of education Insight: fair Judgement: fair Impression / Recommendations Impression 76 yo female with situational anxiety and some seasonal depression who presents with ongoing symptoms in the context of anemia and GI illness. Recommendations there is no indication for inpatient mental health admission reviewed with patient that prn Ativan was ordered by medical team here as comfort measure, not recommended at that dose/frequency given her age/fall risk and driving outside of the hospital d/c trazodone risks/benefits/alternatives reviewed re: SSRI, no active bleeding issue identified so far, agreed to Lexapro 5 mg daily TSH nl, consider vitamin D suppl she is agreeable to a therapy referral, liaison to discuss [facility]
[2017-03-25] MEDS: METOPROLOL TARTRATE 50 MG TAB PO SCH (20:23)
[2017-03-25] MEDS: ROPINIROLE HCL 0.25 MG TAB PO SCH (20:36)
[2017-03-25] MEDS: TRAVOPROST Z 0.004% OPH SOLN 2.5 ML BTL OP SCH (20:36)
--- NOTE | 2017-03-25 21:12 | Progress Note ---
Progress Note Date of Service Mar 25, 2017. Progress Note ATTENDING ADDENDUM : pt developed hypotensive episode SBP in 110-94 no symptoms antihypertensives been adjusted earlier today due to uncontrolled BP ordered to reduce Diovan to 80 mg daily hold other antihypertensives for SBP < 100 cont to monitor
[2017-03-26] VITALS (7 sets, daily range): BP systolic 148–171; BP diastolic 76–91; PULSE 78–85; TEMP 36.2–36.6; O2SAT 100
[2017-03-26] MEDS: LEVOTHYROXINE 25 MCG TAB PO SCH (06:26)
[2017-03-26 06:27] LABS: HEMOGLOBIN 7.5 g/dL (12.0-16.0); MEAN CELL VOLUME 97.9 fL (80-100); MEAN CORPUSCULAR HEMOGLOBIN 31.9 pg (25-34); MEAN CORPUSCULAR HGB CONC 32.6 g/dl (32-36); MEAN PLATELET VOLUME 9.1 fL (7.4-10.4); NUCLEATED RED BLOOD CELL ABS 0.03 K/uL (0-0); PLATELET COUNT 248 K/uL (130-400); RED CELL DISTRIBUTION WIDTH CV 17.6 % (11.5-14.5); WHITE BLOOD COUNT 6.42 K/uL (4.8-10.8)
[2017-03-26 07:02] LABS: CALCIUM 8.1 mg/dl (8.5-10.1); CREATININE 1.21 mg/dl (0.60-1.20); POTASSIUM 3.1 mmol/L (3.5-5.1)
[2017-03-26] MEDS: METOPROLOL TARTRATE 50 MG TAB PO SCH ×2 (08:31→20:41)
[2017-03-26] MEDS: VALSARTAN 80 MG TAB PO SCH (08:31)
[2017-03-26] MEDS: NIFEdipine 30 MG CR TAB PO SCH (08:33)
[2017-03-26] MEDS: PANTOprazole SOD 40 MG TAB PO SCH (08:33)
[2017-03-26] MEDS: ESCITALOPRAM OXALATE 10 MG TAB PO SCH (08:34)
[2017-03-26] MEDS: COMBIGAN~ORDER AWAITING ACTION SCH ×4 (08:35→23:27)
[2017-03-26] MEDS: FLUTICASONE PROPIONATE NA SPR 16 GM BTL SCH ×2 (08:37→20:40)
[2017-03-26] MEDS: HEPARIN SOD 5000 UNIT/0.5 ML CARP SQ SCH ×2 (08:38→20:46)
[2017-03-26] MEDS: CYCLOBENZAPRINE HCL 5 MG TAB PO SCH ×3 (08:38→20:42)
--- NOTE | 2017-03-26 09:10 | ECHOCARDIOGRAM REPORT ---
*NOTICE TO RECEIVING LIBERTARIAN AGENCY This information is strictly Confidential and protected under [place] law. [place] law prohibits you from making any further disclosure of this information unless further disclosure is expressly permitted by the written consent of the person to whom it pertains or is authorized by law. A general authorization for the release of medical or other information is not sufficient for this purpose. Hospital accepts no responsibility if the information is made available to any other person, INCLUDING THE PATIENT. Interpretation Summary * Name: LADAN RUELAS Study Date: 03/25/2017 01:22 PM BP: 169/71 mmHg * Patient Location: [facility]\S\N285\S\1 HR: 80 * : 1940 (M/d/yyyy) Gender: Female Height: 64 in * Age: 76 yrs Ethnicity: CA Weight: 153 lb * Ordering Physician: Cecilia Walden * Referring Physician: UNKNOWN * Performed By: Naseem Hernandez RDCS * * Reason For Study: SVT * BSA: 1.7 m2 * -- Conclusions -- * The left ventricle is normal in size. * There is moderate concentric left ventricular hypertrophy. * The left ventricular wall motion is normal. * Left ventricular systolic function is normal. * Ejection Fraction = 65-70%. * Aortic valve sclerosis moderate, without significant aortic valvular stenosis. * There is focal calcification of the posterior mitral valve annulus * There is trace mitral regurgitation. * There is mild tricuspid regurgitation. Procedure Details * A complete two-dimensional transthoracic echocardiogram was performed (2D, M-mode, Doppler and color flow Doppler). * The study was technically adequate. Left Ventricle * The left ventricle is normal in size. * There is moderate concentric left ventricular hypertrophy. * Ejection Fraction = 65-70%. * Left ventricular systolic function is normal. * The left ventricular wall motion is normal. Right Ventricle * The right ventricle is normal in size and function. Atria * The left atrial size is normal. * Right atrial size is normal. * No ASD detected; PFO is not assessed. Mitral Valve * There is focal calcification of the posterior mitral valve annulus * There is no mitral valve stenosis. * There is trace mitral regurgitation. Tricuspid Valve * The tricuspid valve anatomy is normal. * There is no tricuspid stenosis. * There is mild tricuspid regurgitation. * Right ventricular systolic pressure is elevated at 40-50mmHg. Aortic Valve * The aortic valve is trileaflet. * Aortic valve sclerosis moderate, without significant aortic valvular stenosis. * No aortic regurgitation is present. Pulmonic Valve * The pulmonic valve is not well visualized. Great Vessels * The aortic root is normal size. Pericardium/Pleural * There is no pericardial effusion. Great Vessels * Normal inferior vena cava diameter and respiratory variation suggests normal central venous pressure. Left Ventricular Diastolic Function * Grade I diastolic dysfunction, (abnormal relaxation pattern). MMode 2D Measurements and Calculations IVSd 0.97 cm IVSs 1.4 cm LVIDd 4.3 cm LVIDs 2.8 cm LVPWd 0.97 cm LVPWs 1.3 cm IVS/LVPW 1.0 FS 35.4 % EDV(Teich) 82.9 ml ESV(Teich) 28.9 ml EF(Teich) 65.1 % EDV(cubed) 79.3 ml ESV(cubed) 21.4 ml EF(cubed) 73.0 % % IVS thick 39.0 % % LVPW thick 35.7 % LV mass(C)d 136.7 grams LV mass(C)dI 78.3 grams/m\S\2 LV mass(C)s 117.1 grams LV mass(C)sI 67.1 grams/m\S\2 SV(Teich) 53.9 ml SI(Teich) 30.9 ml/m\S\2 SV(cubed) 57.9 ml SI(cubed) 33.2 ml/m\S\2 Ao root diam 3.4 cm Ao root area 8.9 cm\S\2 LA dimension 3.5 cm asc Aorta Diam 2.9 cm LA/Ao 1.0 LVOT diam 2.0 cm LVOT area 3.2 cm\S\2 LVAd ap4 19.9 cm\S\2 LVLd ap4 7.4 cm EDV(MOD-sp4) 43.8 ml EDV(sp4-el) 45.2 ml LVAs ap4 9.4 cm\S\2 LVLs ap4 5.8 cm ESV(MOD-sp4) 12.8 ml ESV(sp4-el) 13.0 ml EF(MOD-sp4) 70.7 % EF(sp4-el) 71.2 % LVAd ap2 17.2 cm\S\2 LVLd ap2 7.1 cm EDV(MOD-sp2) 34.6 ml EDV(sp2-el) 35.3 ml LVAs ap2 8.0 cm\S\2 LVLs ap2 6.3 cm ESV(MOD-sp2) 8.8 ml ESV(sp2-el) 8.6 ml EF(MOD-sp2) 74.6 % EF(sp2-el) 75.8 % LVLd %diff -4.75 % EDV(MOD-bp) 40.0 ml LVLs %diff 8.3 % ESV(MOD-bp) 10.6 ml EF(MOD-bp) 73.4 % SV(MOD-sp4) 31.0 ml SI(MOD-sp4) 17.8 ml/m\S\2 SV(MOD-sp2) 25.8 ml SI(MOD-sp2) 14.8 ml/m\S\2 SV(MOD-bp) 29.3 ml SI(MOD-bp) 16.8 ml/m\S\2 SV(sp4-el) 32.1 ml SI(sp4-el) 18.4 ml/m\S\2 SV(sp2-el) 26.8 ml SI(sp2-el) 15.3 ml/m\S\2 Doppler Measurements and Calculations MV E max coretta 108.7 cm/sec MV A max coretta 133.3 cm/sec MV E/A 0.82 MV dec time 0.17 sec Ao V2 max 198.0 cm/sec Ao max PG 15.7 mmHg Ao max PG (full) 7.4 mmHg ROBERTO CARLOS(V,A) 2.3 cm\S\2 ROBERTO CARLOS(V,D) 2.3 cm\S\2 LV V1 max PG 8.3 mmHg LV V1 max 144.3 cm/sec PA V2 max 132.0 cm/sec PA max PG 7.0 mmHg TR max coretta 300.1 cm/sec
--- NOTE | 2017-03-26 09:23 | Gastroenterology Progress Note ---
Progress Note Date of Service: Mar 26, 2017 Subjective Pt evaluation today including: conversation w/ patient, physical exam, chart review, review of inpatient medication list Patient denies any nausea or abdominal pain at present. Denies any overt GIB symptoms. She has not had a bowel movement since admission per her report stating "I haven't eaten anything". Passing flatus. Review of Systems Constitutional: No problem reported Respiratory: No problem reported Cardiac: No problem reported Abdomen: + see HPI Skin: No problem reported Medications Current Inpatient Medications Medications (Trade) Dose Ordered Sig/Estevan Route Start Time Stop Time Status Last Admin Dose Admin Folic Acid (Folvite Tab) 1 mg DAILY PO 03/24/17 09:00 04/23/17 08:59 03/26/17 08:32 1 MG Levothyroxine Sodium (Synthroid Tab) 25 mcg DAILYBB PO 03/24/17 06:30 04/23/17 06:29 03/26/17 06:26 25 MCG Prednisone (PredniSONE TAB) 2.5 mg DAILY PO 03/24/17 09:00 04/23/17 08:59 03/26/17 08:32 2.5 MG Miscellaneous Information (Order Awaiting Action) 1 ea QS N/A 03/24/17 08:00 04/23/17 07:59 Miscellaneous Information (Order Awaiting Action) 1 ea QS N/A 03/24/17 08:00 04/23/17 07:59 Nifedipine (Procardia Xl Tab) 60 mg QAM PO 03/24/17 09:00 04/23/17 08:59 03/26/17 08:33 60 MG Pantoprazole Sodium (Protonix Tab) 40 mg DAILY PO 03/24/17 09:00 04/23/17 08:59 03/26/17 08:33 40 MG Heparin Sodium (Porcine) (Heparin Sq 5000 Unit/0.5ml) 5,000 unit Q12 SQ 03/24/17 09:00 04/23/17 08:59 03/25/17 20:50 5,000 UNIT Fluticasone Propionate (Flonase Nasal [place]) 2 sprays Q12 NA 03/24/17 16:00 04/23/17 15:59 03/26/17 08:37 2 SPRAYS Acetaminophen/ Hydrocodone Bitart ([place] 10/325 Tab) 1 tab Q6 PRN PO 03/24/17 18:45 04/07/17 18:44 03/25/17 22:11 1 TAB Ropinirole HCl (Requip Tab) 0.25 mg HS PO 03/24/17 21:00 04/23/17 20:59 03/25/17 20:36 0.25 MG Cyclobenzaprine HCl (Flexeril Tab) 5 mg TID PO 03/25/17 09:00 04/24/17 08:59 03/26/17 08:38 5 MG Metoprolol Tartrate (Lopressor Tab) 50 mg BID PO 03/25/17 20:23 04/24/17 08:59 03/26/17 08:31 50 MG Travoprost (Travatan Z) 1 drops HS OP 03/25/17 21:00 04/24/17 20:59 03/25/17 20:36 1 DROPS Escitalopram Oxalate (Lexapro Tab) 5 mg QAM PO 03/26/17 08:00 04/25/17 08:59 03/26/17 08:34 5 MG Valsartan (Diovan Tab) 80 mg DAILY PO 03/26/17 08:00 04/23/17 08:59 03/26/17 08:31 80 MG Lorazepam (Ativan Tab) 0.5 mg Q12 PRN PO 03/25/17 21:15 04/23/17 18:44 Objective Vital Signs Date Time Temp Pulse Resp B/P (MAP) Pulse Ox O2 Delivery O2 Flow Rate FiO2 03/26/17 07:28 36.6 78 18 148/76 (100) 100 Room Air 03/25/17 23:44 36.6 88 16 113/64 (80) 98 Room Air 03/25/17 23:40 98 Room Air 03/25/17 23:40 98 Room Air 03/25/17 20:59 36.9 100 18 95/62 (73) 98 Room Air 03/25/17 18:55 36.5 96 16 111/65 (80) 96 Room Air 03/25/17 16:00 99 Room Air 03/25/17 15:46 36.6 95 16 157/80 (105) 99 Room Air 03/25/17 12:01 Room Air Physical Exam General Appearance: no apparent distress Eyes: EOMI ENT: hearing grossly normal Neck: supple Respiratory/Chest: lungs clear, normal breath sounds, no respiratory distress Cardiovascular: regular rate, rhythm Abdomen: normal bowel sounds, non tender, soft Neurologic/Psych: alert, normal mood/affect, oriented x 3 Skin: warm/dry Laboratory Results Last 24 Hours Test 03/26/17 05:31 White Blood Count 6.42 K/uL Red Blood Count 2.35 M/uL Hemoglobin 7.5 g/dL Hematocrit 23.0 % Mean Corpuscular Volume 97.9 fL Mean Corpuscular Hemoglobin 31.9 pg Mean Corpuscular Hemoglobin Concent 32.6 g/dl RDW Standard Deviation 61.0 fL RDW Coefficient of Variation 17.6 % Platelet Count 248 K/uL Mean Platelet Volume 9.1 fL Nucleated RBC Absolute Count (auto) 0.03 K/uL Nucleated Red Blood Cells % 0.4 % Sodium Level 140 mmol/L Potassium Level 3.1 mmol/L Chloride Level 111 mmol/L Carbon Dioxide Level 22 mmol/L Anion Gap 7.0 mmol/L Blood Urea Nitrogen 19 mg/dl Creatinine 1.21 mg/dl Est Creatinine Clear Calc Drug Dose 39.1 ml/min Estimated GFR () 51.0 Estimated GFR (Non- 44.0 BUN/Creatinine Ratio 15.5 Random Glucose 73 mg/dl Calcium Level 8.1 mg/dl Magnesium Level 1.8 mg/dl Assessment and Plan Patient is a 76-year-old female with labile hypertension and left lower quadrant abdominal pain and normocytic anemia without overt gastrointestinal bleeding. 1. Outpatient GI work up. 2. Medical management by primary team. Agree with FRANCINE Carlton as above Abd: Soft, NT, ND, +BS Continue supportive care Outpatient GI workup to be scheduled Will sign off at this time, please re-consult if needed.
[2017-03-26] MEDS: LORAZEPAM 1 MG TAB PO PRN (12:38)
[2017-03-26] MEDS ORDERED: POTASSIUM CHLORIDE 20 MEQ TABCR PO STA (15:11)
--- NOTE | 2017-03-26 15:16 | PROGRESS NOTE ---
DATE: 03/26/2017 The patient seen and examined. Blood pressure has improved over this morning. Notes she "slept well" last night. Notes no chest pains. Notes no tachypalpitations. OBJECTIVE: VITAL SIGNS: Heart rate this morning is 78, blood pressure is 148/76. HEENT: Normocephalic and atraumatic. NECK: There is no jugular venous distention. LUNGS: Clear. CARDIOVASCULAR: Regular. There is no S3 gallop. EXTREMITIES: Free of edema. DIAGNOSTIC DATA: Echocardiogram today demonstrates moderate left ventricular hypertrophy with hyperdynamic LV function, EF 65% to 70% with aortic sclerosis. No stenosis. Trace mitral and tricuspid insufficiency. IMPRESSION: A 76-year-old female with labile hypertension, longstanding. I had long discussions regarding management of hypertension. The patient in the past had been stopping medications when low, taking medications when high with exacerbating underlying labile hypertension. Left ventricular hypertrophy on echocardiogram and hyperdynamic function suggest a beta lorenzo would be appropriate as part of patient's constellation of management. PLAN: Continue metoprolol 50 mg twice per day. Continue valsartan 80 mg once per day, though this may be reduced to 40 mg per day. If blood pressure resorts to trend lower, we would continue nifedipine. Discussed management in detail, patient's ultimate goal will be steady state therapies, as discontinuing and restarting medications are likely to exacerbate underlying blood pressure issues. Anxiety treatments have aided in symptoms complaints. The patient feels Requip has been very effective. We will recommend outpatient followup with cardiology in 4-6 weeks' time at [facility]. Call with any questions. SCOTT
[2017-03-26] MEDS ORDERED: ROPINIROLE HCL 0.25 MG TAB PO ONE (15:45)
--- NOTE | 2017-03-26 18:40 | Progress Note ---
Subjective Date of Service: Mar 26, 2017. Subjective Pt evaluation today including: conversation w/ patient, physical exam, lab review, review of studies, review of inpatient medication list Saw/examined the patient in room 406 She is doing okay today, she feels +anxious +restless leg syndrome, but improved with medications Review of Systems Constitutional: No fever, No chills Respiratory: No cough, No sputum, No shortness of breath Cardiac: No chest pain, No edema Abdomen: No pain, No nausea, No vomiting, No diarrhea, No GI bleeding Medications Current Inpatient Medications Medications (Trade) Dose Ordered Sig/Estevan Route Start Time Stop Time Status Last Admin Dose Admin Folic Acid (Folvite Tab) 1 mg DAILY PO 03/24/17 09:00 04/23/17 08:59 03/26/17 08:32 1 MG Levothyroxine Sodium (Synthroid Tab) 25 mcg DAILYBB PO 03/24/17 06:30 04/23/17 06:29 03/26/17 06:26 25 MCG Prednisone (PredniSONE TAB) 2.5 mg DAILY PO 03/24/17 09:00 04/23/17 08:59 03/26/17 08:32 2.5 MG Miscellaneous Information (Order Awaiting Action) 1 ea QS N/A 03/24/17 08:00 04/23/17 07:59 Miscellaneous Information (Order Awaiting Action) 1 ea QS N/A 03/24/17 08:00 04/23/17 07:59 Nifedipine (Procardia Xl Tab) 60 mg QAM PO 03/24/17 09:00 04/23/17 08:59 03/26/17 08:33 60 MG Pantoprazole Sodium (Protonix Tab) 40 mg DAILY PO 03/24/17 09:00 04/23/17 08:59 03/26/17 08:33 40 MG Heparin Sodium (Porcine) (Heparin Sq 5000 Unit/0.5ml) 5,000 unit Q12 SQ 03/24/17 09:00 04/23/17 08:59 03/25/17 20:50 5,000 UNIT Fluticasone Propionate (Flonase Nasal [place]) 2 sprays Q12 NA 03/24/17 16:00 04/23/17 15:59 03/26/17 08:37 2 SPRAYS Acetaminophen/ Hydrocodone Bitart ([place] 10/325 Tab) 1 tab Q6 PRN PO 03/24/17 18:45 04/07/17 18:44 03/25/17 22:11 1 TAB Ropinirole HCl (Requip Tab) 0.25 mg HS PO 03/24/17 21:00 04/23/17 20:59 03/25/17 20:36 0.25 MG Cyclobenzaprine HCl (Flexeril Tab) 5 mg TID PO 03/25/17 09:00 04/24/17 08:59 03/26/17 15:15 5 MG Metoprolol Tartrate (Lopressor Tab) 50 mg BID PO 03/25/17 20:23 04/24/17 08:59 03/26/17 08:31 50 MG Travoprost (Travatan Z) 1 drops HS OP 03/25/17 21:00 04/24/17 20:59 03/25/17 20:36 1 DROPS Escitalopram Oxalate (Lexapro Tab) 5 mg QAM PO 03/26/17 08:00 04/25/17 08:59 03/26/17 08:34 5 MG Valsartan (Diovan Tab) 80 mg DAILY PO 03/26/17 08:00 04/23/17 08:59 03/26/17 08:31 80 MG Lorazepam (Ativan Tab) 0.5 mg Q12 PRN PO 03/25/17 21:15 04/23/17 18:44 03/26/17 12:38 0.5 MG Objective Vital Signs Date Time Temp Pulse Resp B/P (MAP) Pulse Ox O2 Delivery O2 Flow Rate FiO2 03/26/17 17:24 156/80 (105) 03/26/17 16:14 171/91 (117) 03/26/17 16:06 36.2 84 18 100 03/26/17 08:30 100 Room Air 03/26/17 07:28 36.6 78 18 148/76 (100) 100 Room Air 03/25/17 23:44 36.6 88 16 113/64 (80) 98 Room Air 03/25/17 23:40 98 Room Air 03/25/17 23:40 98 Room Air 03/25/17 20:59 36.9 100 18 95/62 (73) 98 Room Air 03/25/17 18:55 36.5 96 16 111/65 (80) 96 Room Air Physical Exam General Appearance: no apparent distress Respiratory/Chest: lungs clear, normal breath sounds, no respiratory distress, no accessory muscle use Cardiovascular: regular rate, rhythm, no edema, no murmur Extremities: normal inspection, no pedal edema Neurologic/Psychiatric: no motor/sensory deficits, alert, + pertinent finding ( +anxious) Laboratory Results Last 24 Hours Test 03/26/17 05:31 White Blood Count 6.42 K/uL Red Blood Count 2.35 M/uL Hemoglobin 7.5 g/dL Hematocrit 23.0 % Mean Corpuscular Volume 97.9 fL Mean Corpuscular Hemoglobin 31.9 pg Mean Corpuscular Hemoglobin Concent 32.6 g/dl RDW Standard Deviation 61.0 fL RDW Coefficient of Variation 17.6 % Platelet Count 248 K/uL Mean Platelet Volume 9.1 fL Nucleated RBC Absolute Count (auto) 0.03 K/uL Nucleated Red Blood Cells % 0.4 % Sodium Level 140 mmol/L Potassium Level 3.1 mmol/L Chloride Level 111 mmol/L Carbon Dioxide Level 22 mmol/L Anion Gap 7.0 mmol/L Blood Urea Nitrogen 19 mg/dl Creatinine 1.21 mg/dl Est Creatinine Clear Calc Drug Dose 39.1 ml/min Estimated GFR () 51.0 Estimated GFR (Non- 44.0 BUN/Creatinine Ratio 15.5 Random Glucose 73 mg/dl Calcium Level 8.1 mg/dl Magnesium Level 1.8 mg/dl Assessment and Plan LEFT LOWER QUADRANT ABDOMINAL PAIN : - RESOLVED improved presented to [facility] with complain of left lower quadrant pain constant associated with nausea no vomiting pain is worse after eating , loose bowel movement after each meals CT abdomen /pelvis in [facility] -Diverticulosis , no evidence of inflammation or diverticulitis pt never had colonoscopy in past possible irritable bowel symptom ordered Flexeril TID for muscle spasm GI eval requested appreciated input recommend out pt colonoscopy HYPERTENSIVE URGENCY : 03/26 appreciate cardiology consult for now, on b-lorenzo, decrease Diovan and possibly d/c Nifedipine if BP drops 03/25 pt has been on multiple antihypertensive medication Coreg 6.25/Diovan 80 mg /Nifedipine 60 mg BP remains persistently elevated pt denies of any feeling of headache /SOB or LUNA Cardiology eval requested ECHO ordered to assess hypertensive heart disease PRN Ativan ordered for anxiety ANXIETY DISORDER : pt mentions of being very anxious ,poor sleep , worried about everything anxious about all her symptoms constantly Pt mentions she always been worried and stressed with every day life never requested counselling or Psychiatric help -as it will maker her looking : weak" wiling to have Psychiatry consultation and trial of SSRI Psych consult requested INSOMNIA : due to above cont Trazodone, PRN Ativan ordered LEG NUMBNESS /PAIN : 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 mentions of having sharp/shooting pain going down to feet no hx of neuropathy /or DM ordered for Requip -pt reports improvement of symptom lower ext Doppler negative for DVT ANEMIA : due to anemia of chronic disease -RA MCV 98 , on Mtx /folic acid no report of dark stool or blood in stool GI consult appreciated recommends out pt EGD /Colonoscopy FULL CODE DVT PROPHYLAXIS sub q heparin DISPOSITION discharge home when medically stable Medicine follow up with Dr Minor will need out pt GI followup for EGD /Colonoscopy
[2017-03-26] MEDS: TRAVOPROST Z 0.004% OPH SOLN 2.5 ML BTL OP SCH (20:42)
[2017-03-26] MEDS: ROPINIROLE HCL 0.25 MG TAB PO SCH (20:42)
[2017-03-27] VITALS (7 sets, daily range): BP systolic 118–174; BP diastolic 71–79; PULSE 80–92; TEMP 36.2–36.6; O2SAT 99–100
[2017-03-27 05:51] LABS: HEMATOCRIT 25.3 % (37-47); MEAN CELL VOLUME 97.3 fL (80-100); MEAN CORPUSCULAR HEMOGLOBIN 30.8 pg (25-34); MEAN CORPUSCULAR HGB CONC 31.6 g/dl (32-36); MEAN PLATELET VOLUME 8.6 fL (7.4-10.4); NUCLEATED RED BLOOD CELL ABS 0.03 K/uL (0-0); PLATELET COUNT 259 K/uL (130-400); RED CELL DISTRIBUTION WIDTH CV 17.3 % (11.5-14.5); RED CELL DISTRIBUTION WIDTH SD 60.2 fL (36.4-46.3); WHITE BLOOD COUNT 7.13 K/uL (4.8-10.8)
[2017-03-27] MEDS: LEVOTHYROXINE 25 MCG TAB PO SCH (06:19)
[2017-03-27 06:32] LABS: CALCIUM 7.9 mg/dl (8.5-10.1); CREATININE 0.92 mg/dl (0.60-1.20); POTASSIUM 2.9 mmol/L (3.5-5.1)
[2017-03-27] MEDS: COMBIGAN~ORDER AWAITING ACTION SCH ×2 (08:00→16:00)
[2017-03-27] MEDS: VALSARTAN 80 MG TAB PO SCH (08:31)
[2017-03-27] MEDS: ESCITALOPRAM OXALATE 10 MG TAB PO SCH (08:31)
[2017-03-27] MEDS: CYCLOBENZAPRINE HCL 5 MG TAB PO SCH ×3 (08:32→21:29)
[2017-03-27] MEDS: PANTOprazole SOD 40 MG TAB PO SCH (08:32)
[2017-03-27] MEDS: NIFEdipine 30 MG CR TAB PO SCH (08:32)
[2017-03-27] MEDS: METOPROLOL TARTRATE 50 MG TAB PO SCH ×2 (08:33→21:29)
[2017-03-27] MEDS: FLUTICASONE PROPIONATE NA SPR 16 GM BTL SCH ×2 (08:33→21:30)
[2017-03-27] MEDS: HEPARIN SOD 5000 UNIT/0.5 ML CARP SQ SCH ×2 (08:40→21:32)
[2017-03-27] MEDS: LORAZEPAM 1 MG TAB PO PRN (08:51)
[2017-03-27] MEDS ORDERED: HYDROCODONE/ACETAMOPHEN 5/325MG TAB PO PRN (09:30)
[2017-03-27] MEDS ORDERED: HYDROCODONE/ACETAMOPHEN 5/325MG TAB PO ONE (09:30)
[2017-03-27] MEDS ORDERED: POTASSIUM CHLORIDE 10 MEQ TABCR PO ONE (09:45)
[2017-03-27] MEDS ORDERED: MAGNESIUM OXIDE 400 MG TAB PO ONE (09:45)
--- NOTE | 2017-03-27 11:07 | CARDIOLOGY PROGRESS NOTE ---
DATE: 03/27/2017 DATE: 03/27/2017 The patient seen and examined. Chart, medications, telemetry reviewed. SUBJECTIVE: The main complaints per patient today is arthritic pain and discomfort. Notes she uses Vicodin frequently at home for control. Blood pressures have been somewhat labile over the last 24 hours, but not excessively high or low, taking medications as prescribed. OBJECTIVE: VITAL SIGNS: Heart rate is 80, blood pressure is 174/74. HEAD, EYES, EARS, NOSE, AND THROAT: Normocephalic, atraumatic. NECK: Thin. There is no jugular venous distention. LUNGS: Clear. CARDIOVASCULAR: Regular. There is no S3 gallop. ABDOMEN: Soft. EXTREMITIES: Without cyanosis or clubbing. There is no peripheral edema. IMPRESSION: A 76-year-old female with labile hypertension, multifactorial etiology, chronic anemia, chronic rheumatoid arthritis. RECOMMENDATIONS: Continue current medications without adjustment, allow equilibration of dosing in attempts to maintain steady state therapies, avoid discontinuation or holding of dosage. Continue all other therapies as prescribed. Follow up with her chronic narcotic use, possible signs or symptoms of withdrawal if spike in blood pressures are noted.
--- NOTE | 2017-03-27 17:50 | Progress Note ---
Subjective Date of Service: Mar 27, 2017. Subjective Pt evaluation today including: conversation w/ patient, physical exam, lab review, review of studies, review of inpatient medication list Saw/examined the patient in room 406 +anxious scared to go home because her blood pressure might change okay to advance diet for lunch to a regular diet Review of Systems Constitutional: + weakness Abdomen: + pain, No nausea, No vomiting, No diarrhea, No constipation, No GI bleeding Psychiatric: + depression symptoms, + anxiety, + insomnia Medications Current Inpatient Medications Medications (Trade) Dose Ordered Sig/Estevan Route Start Time Stop Time Status Last Admin Dose Admin Folic Acid (Folvite Tab) 1 mg DAILY PO 03/24/17 09:00 04/23/17 08:59 03/27/17 08:32 1 MG Levothyroxine Sodium (Synthroid Tab) 25 mcg DAILYBB PO 03/24/17 06:30 04/23/17 06:29 03/27/17 06:19 25 MCG Prednisone (PredniSONE TAB) 2.5 mg DAILY PO 03/24/17 09:00 04/23/17 08:59 03/27/17 08:31 2.5 MG Miscellaneous Information (Order Awaiting Action) 1 ea QS N/A 03/24/17 08:00 04/23/17 07:59 Miscellaneous Information (Order Awaiting Action) 1 ea QS N/A 03/24/17 08:00 04/23/17 07:59 Nifedipine (Procardia Xl Tab) 60 mg QAM PO 03/24/17 09:00 04/23/17 08:59 03/27/17 08:32 60 MG Pantoprazole Sodium (Protonix Tab) 40 mg DAILY PO 03/24/17 09:00 04/23/17 08:59 03/27/17 08:32 40 MG Heparin Sodium (Porcine) (Heparin Sq 5000 Unit/0.5ml) 5,000 unit Q12 SQ 03/24/17 09:00 04/23/17 08:59 03/27/17 08:40 5,000 UNIT Fluticasone Propionate (Flonase Nasal [place]) 2 sprays Q12 NA 03/24/17 16:00 04/23/17 15:59 03/27/17 08:33 2 SPRAYS Ropinirole HCl (Requip Tab) 0.25 mg HS PO 03/24/17 21:00 04/23/17 20:59 03/26/17 20:42 0.25 MG Cyclobenzaprine HCl (Flexeril Tab) 5 mg TID PO 03/25/17 09:00 04/24/17 08:59 03/27/17 14:45 5 MG Metoprolol Tartrate (Lopressor Tab) 50 mg BID PO 03/25/17 20:23 04/24/17 08:59 03/27/17 08:33 50 MG Travoprost (Travatan Z) 1 drops HS OP 03/25/17 21:00 04/24/17 20:59 03/26/17 20:42 1 DROPS Escitalopram Oxalate (Lexapro Tab) 5 mg QAM PO 03/26/17 08:00 04/25/17 08:59 03/27/17 08:31 5 MG Valsartan (Diovan Tab) 80 mg DAILY PO 03/26/17 08:00 04/23/17 08:59 03/27/17 08:31 80 MG Lorazepam (Ativan Tab) 0.5 mg Q12 PRN PO 03/25/17 21:15 04/23/17 18:44 03/27/17 08:51 0.5 MG Acetaminophen/ Hydrocodone Bitart ([place] 5/325 Tab) 1 tab Q6 PRN PO 03/27/17 09:30 04/10/17 09:29 Objective Vital Signs Date Time Temp Pulse Resp B/P (MAP) Pulse Ox O2 Delivery O2 Flow Rate FiO2 03/27/17 16:13 36.2 80 18 146/79 (101) 99 Room Air 03/27/17 15:48 80 99 03/27/17 08:30 100 Room Air 03/27/17 08:30 100 Room Air 03/27/17 07:36 36.6 80 18 174/74 (107) 100 Room Air 03/27/17 00:02 36.5 81 16 118/73 (88) 100 Room Air 03/27/17 00:00 Room Air 03/26/17 20:39 85 154/81 (105) Physical Exam General Appearance: no apparent distress, + pertinent finding (+anxious appearing) Respiratory/Chest: lungs clear, normal breath sounds, no respiratory distress, no accessory muscle use Cardiovascular: regular rate, rhythm, no edema, no murmur Abdomen: normal bowel sounds, non tender, soft Extremities: normal inspection, no pedal edema Neurologic/Psychiatric: no motor/sensory deficits, alert, + depressed affect Laboratory Results Last 24 Hours Test 03/27/17 05:33 White Blood Count 7.13 K/uL Red Blood Count 2.60 M/uL Hemoglobin 8.0 g/dL Hematocrit 25.3 % Mean Corpuscular Volume 97.3 fL Mean Corpuscular Hemoglobin 30.8 pg Mean Corpuscular Hemoglobin Concent 31.6 g/dl RDW Standard Deviation 60.2 fL RDW Coefficient of Variation 17.3 % Platelet Count 259 K/uL Mean Platelet Volume 8.6 fL Nucleated RBC Absolute Count (auto) 0.03 K/uL Nucleated Red Blood Cells % 0.4 % Sodium Level 139 mmol/L Potassium Level 2.9 mmol/L Chloride Level 110 mmol/L Carbon Dioxide Level 23 mmol/L Anion Gap 6.0 mmol/L Blood Urea Nitrogen 12 mg/dl Creatinine 0.92 mg/dl Est Creatinine Clear Calc Drug Dose 51.4 ml/min Estimated GFR () 71.1 Estimated GFR (Non- 61.3 BUN/Creatinine Ratio 13.2 Random Glucose 79 mg/dl Calcium Level 7.9 mg/dl Magnesium Level 1.7 mg/dl Assessment and Plan HYPERTENSIVE URGENCY 03/27 appreciate cardiology consult we will continue current regimen, monitor blood pressure throughout today continue Lexapro and Ativan PRN for anxiety/mood disorder will continue Requip for restless leg syndrome 03/26 appreciate cardiology consult for now, on b-lorenzo, decrease Diovan and possibly d/c Nifedipine if BP drops 03/25 pt has been on multiple antihypertensive medication Coreg 6.25/Diovan 80 mg /Nifedipine 60 mg BP remains persistently elevated pt denies of any feeling of headache /SOB or LUNA Cardiology eval requested ECHO ordered to assess hypertensive heart disease PRN Ativan ordered for anxiety LEFT LOWER QUADRANT ABDOMINAL PAIN : - RESOLVED improved presented to [facility] with complain of left lower quadrant pain constant associated with nausea no vomiting pain is worse after eating , loose bowel movement after each meals CT abdomen /pelvis in [facility] -Diverticulosis , no evidence of inflammation or diverticulitis pt never had colonoscopy in past possible irritable bowel symptom ordered Flexeril TID for muscle spasm GI eval requested appreciated input recommend out pt colonoscopy ANXIETY DISORDER : pt mentions of being very anxious ,poor sleep , worried about everything anxious about all her symptoms constantly Pt mentions she always been worried and stressed with every day life never requested counselling or Psychiatric help -as it will maker her looking : weak" wiling to have Psychiatry consultation and trial of SSRI Psych consult requested INSOMNIA : due to above cont Trazodone, PRN Ativan ordered LEG NUMBNESS /PAIN : 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 mentions of having sharp/shooting pain going down to feet no hx of neuropathy /or DM ordered for Requip -pt reports improvement of symptom lower ext Doppler negative for DVT ANEMIA : due to anemia of chronic disease -RA MCV 98 , on Mtx /folic acid no report of dark stool or blood in stool GI consult appreciated recommends out pt EGD /Colonoscopy FULL CODE DVT PROPHYLAXIS sub q heparin DISPOSITION discharge home when medically stable Medicine follow up with Dr Minor will need out pt GI followup for EGD /Colonoscopy
[2017-03-27] MEDS: TRAVOPROST Z 0.004% OPH SOLN 2.5 ML BTL OP SCH (21:30)
[2017-03-27] MEDS: ROPINIROLE HCL 0.25 MG TAB PO SCH (21:30)
[2017-03-28] VITALS: BP 119/68; PULSE 77; TEMP 36.6; O2SAT 100
[2017-03-28 05:52] LABS: HEMATOCRIT 23.9 % (37-47); HEMOGLOBIN 7.6 g/dL (12.0-16.0); MEAN CELL VOLUME 98.4 fL (80-100); MEAN CORPUSCULAR HEMOGLOBIN 31.3 pg (25-34); MEAN CORPUSCULAR HGB CONC 31.8 g/dl (32-36); MEAN PLATELET VOLUME 9.2 fL (7.4-10.4); PLATELET COUNT 247 K/uL (130-400); RED CELL DISTRIBUTION WIDTH CV 17.9 % (11.5-14.5); RED CELL DISTRIBUTION WIDTH SD 62.8 fL (36.4-46.3); WHITE BLOOD COUNT 6.34 K/uL (4.8-10.8)
[2017-03-28] MEDS: LEVOTHYROXINE 25 MCG TAB PO SCH (06:11)
[2017-03-28 06:21] LABS: CALCIUM 8.1 mg/dl (8.5-10.1); CREATININE 0.93 mg/dl (0.60-1.20); POTASSIUM 3.2 mmol/L (3.5-5.1)
[2017-03-28 07:31] VITALS: BP 168/80; PULSE 85; TEMP 36.4; O2SAT 98
[2017-03-28] MEDS: COMBIGAN~ORDER AWAITING ACTION SCH ×3 (08:00→15:24)
[2017-03-28] MEDS: VALSARTAN 80 MG TAB PO SCH (08:02)
[2017-03-28] MEDS: CYCLOBENZAPRINE HCL 5 MG TAB PO SCH ×2 (08:02→13:58)
[2017-03-28] MEDS: ESCITALOPRAM OXALATE 10 MG TAB PO SCH (08:03)
[2017-03-28] MEDS: METOPROLOL TARTRATE 50 MG TAB PO SCH (08:04)
[2017-03-28] MEDS: NIFEdipine 30 MG CR TAB PO SCH (08:05)
[2017-03-28] MEDS: PANTOprazole SOD 40 MG TAB PO SCH (08:05)
[2017-03-28] MEDS: FLUTICASONE PROPIONATE NA SPR 16 GM BTL SCH (08:05)
[2017-03-28] MEDS: HEPARIN SOD 5000 UNIT/0.5 ML CARP SQ SCH (08:07)
[2017-03-28 10:15] VITALS: BP 152/84; PULSE 73
--- NOTE | 2017-03-28 12:49 | Progress Note ---
Subjective Date of Service: Mar 28, 2017. Subjective Pt evaluation today including: conversation w/ patient, physical exam, lab review, review of studies, review of inpatient medication list Saw/examined the patient in room 406 No problems/issues today +anxious Review of Systems Constitutional: No weakness Respiratory: No shortness of breath Cardiac: No chest pain Psychiatric: + anxiety, No depression symptoms, No insomnia Medications Current Inpatient Medications Medications (Trade) Dose Ordered Sig/Estevan Route Start Time Stop Time Status Last Admin Dose Admin Folic Acid (Folvite Tab) 1 mg DAILY PO 03/24/17 09:00 04/23/17 08:59 03/28/17 08:02 1 MG Levothyroxine Sodium (Synthroid Tab) 25 mcg DAILYBB PO 03/24/17 06:30 04/23/17 06:29 03/28/17 06:11 25 MCG Prednisone (PredniSONE TAB) 2.5 mg DAILY PO 03/24/17 09:00 04/23/17 08:59 03/28/17 08:04 2.5 MG Miscellaneous Information (Order Awaiting Action) 1 ea QS N/A 03/24/17 08:00 04/23/17 07:59 Miscellaneous Information (Order Awaiting Action) 1 ea QS N/A 03/24/17 08:00 04/23/17 07:59 Nifedipine (Procardia Xl Tab) 60 mg QAM PO 03/24/17 09:00 04/23/17 08:59 03/28/17 08:05 60 MG Pantoprazole Sodium (Protonix Tab) 40 mg DAILY PO 03/24/17 09:00 04/23/17 08:59 03/28/17 08:05 40 MG Heparin Sodium (Porcine) (Heparin Sq 5000 Unit/0.5ml) 5,000 unit Q12 SQ 03/24/17 09:00 04/23/17 08:59 03/28/17 08:07 5,000 UNIT Fluticasone Propionate (Flonase Nasal Orick) 2 sprays Q12 NA 03/24/17 16:00 04/23/17 15:59 03/28/17 08:05 2 SPRAYS Ropinirole HCl (Requip Tab) 0.25 mg HS PO 03/24/17 21:00 04/23/17 20:59 03/27/17 21:30 0.25 MG Cyclobenzaprine HCl (Flexeril Tab) 5 mg TID PO 03/25/17 09:00 04/24/17 08:59 03/28/17 08:02 5 MG Metoprolol Tartrate (Lopressor Tab) 50 mg BID PO 03/25/17 20:23 04/24/17 08:59 03/28/17 08:04 50 MG Travoprost (Travatan Z) 1 drops HS OP 03/25/17 21:00 04/24/17 20:59 03/27/17 21:30 1 DROPS Escitalopram Oxalate (Lexapro Tab) 5 mg QAM PO 03/26/17 08:00 04/25/17 08:59 03/28/17 08:03 5 MG Valsartan (Diovan Tab) 80 mg DAILY PO 03/26/17 08:00 04/23/17 08:59 03/28/17 08:02 80 MG Lorazepam (Ativan Tab) 0.5 mg Q12 PRN PO 03/25/17 21:15 04/23/17 18:44 03/27/17 08:51 0.5 MG Acetaminophen/ Hydrocodone Bitart (Macon 5/325 Tab) 1 tab Q6 PRN PO 03/27/17 09:30 04/10/17 09:29 03/27/17 21:29 1 TAB Objective Vital Signs Date Time Temp Pulse Resp B/P (MAP) Pulse Ox O2 Delivery O2 Flow Rate FiO2 03/28/17 10:15 73 152/84 (106) 03/28/17 08:00 Room Air 03/28/17 07:31 36.4 85 16 168/80 (109) 98 03/28/17 00:01 Room Air 03/28/17 00:00 36.6 77 20 119/68 (85) 100 Room Air 03/27/17 21:15 92 130/71 (90) 03/27/17 16:13 36.2 80 18 146/79 (101) 99 Room Air 03/27/17 16:00 99 Room Air 03/27/17 15:48 80 99 Physical Exam General Appearance: no apparent distress Respiratory/Chest: lungs clear, normal breath sounds, no respiratory distress, no accessory muscle use Cardiovascular: regular rate, rhythm, no edema, no murmur Abdomen: normal bowel sounds, non tender, soft Extremities: normal inspection, no pedal edema Neurologic/Psychiatric: + pertinent finding (+anxious) Laboratory Results Last 24 Hours Test 03/28/17 05:31 White Blood Count 6.34 K/uL Red Blood Count 2.43 M/uL Hemoglobin 7.6 g/dL Hematocrit 23.9 % Mean Corpuscular Volume 98.4 fL Mean Corpuscular Hemoglobin 31.3 pg Mean Corpuscular Hemoglobin Concent 31.8 g/dl RDW Standard Deviation 62.8 fL RDW Coefficient of Variation 17.9 % Platelet Count 247 K/uL Mean Platelet Volume 9.2 fL Sodium Level 141 mmol/L Potassium Level 3.2 mmol/L Chloride Level 112 mmol/L Carbon Dioxide Level 24 mmol/L Anion Gap 5.0 mmol/L Blood Urea Nitrogen 14 mg/dl Creatinine 0.93 mg/dl Est Creatinine Clear Calc Drug Dose 50.9 ml/min Estimated GFR () 70.2 Estimated GFR (Non- 60.5 BUN/Creatinine Ratio 15.4 Random Glucose 86 mg/dl Calcium Level 8.1 mg/dl Magnesium Level 1.8 mg/dl Assessment and Plan HYPERTENSIVE URGENCY 03/28 plan to d/c on metoprolol, Diovan and nifedipine BP much improved; goal of < 150/90 03/27 appreciate cardiology consult we will continue current regimen, monitor blood pressure throughout today continue Lexapro and Ativan PRN for anxiety/mood disorder will continue Requip for restless leg syndrome 03/26 appreciate cardiology consult for now, on b-lorenzo, decrease Diovan and possibly d/c Nifedipine if BP drops 03/25 pt has been on multiple antihypertensive medication Coreg 6.25/Diovan 80 mg /Nifedipine 60 mg BP remains persistently elevated pt denies of any feeling of headache /SOB or LUNA Cardiology eval requested ECHO ordered to assess hypertensive heart disease PRN Ativan ordered for anxiety LEFT LOWER QUADRANT ABDOMINAL PAIN : - RESOLVED improved presented to [facility] with complain of left lower quadrant pain constant associated with nausea no vomiting pain is worse after eating , loose bowel movement after each meals CT abdomen /pelvis in [facility] -Diverticulosis , no evidence of inflammation or diverticulitis pt never had colonoscopy in past possible irritable bowel symptom ordered Flexeril TID for muscle spasm GI eval requested appreciated input recommend out pt colonoscopy ANXIETY DISORDER : pt mentions of being very anxious ,poor sleep , worried about everything anxious about all her symptoms constantly Pt mentions she always been worried and stressed with every day life never requested counselling or Psychiatric help -as it will maker her looking : weak" wiling to have Psychiatry consultation and trial of SSRI Psych consult requested INSOMNIA : due to above cont Trazodone, PRN Ativan ordered LEG NUMBNESS /PAIN : 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 mentions of having sharp/shooting pain going down to feet no hx of neuropathy /or DM ordered for Requip -pt reports improvement of symptom lower ext Doppler negative for DVT ANEMIA : due to anemia of chronic disease -RA MCV 98 , on Mtx /folic acid no report of dark stool or blood in stool GI consult appreciated recommends out pt EGD /Colonoscopy FULL CODE DVT PROPHYLAXIS sub q heparin DISPOSITION discharge home when medically stable Medicine follow up with Dr Minor will need out pt GI followup for EGD /Colonoscopy
[2017-03-28] MEDS ORDERED: MCRK20 PO ×2 (12:54→15:25)
[2017-03-28] MEDS ORDERED: LXP10 PO (12:54)
[2017-03-28] MEDS ORDERED: RQP25 PO ×3 (12:54→15:36)
[2017-03-28] MEDS ORDERED: ATV5 PO (12:54)
[2017-03-28] MEDS ORDERED: METO50TA16 PO ×3 (12:54→15:36)
[2017-03-28] MEDS ORDERED: ESCI5TAB PO ×3 (13:49→15:36)
[2017-03-28 13:53] VITALS: BP 152/84; PULSE 73; TEMP 36.4; O2SAT 98
--- NOTE | 2017-03-28 14:28 | Discharge Instructions ---
Discharge Instructions Date of Service Mar 28, 2017. Admission Reason for Admission: Abdominal Pain Discharge Discharge Diagnosis / Problem: Hypertensive Urgency; Anxiety/Depression Discharge Goals Goal(s): Decrease discomfort, Improve function, Diagnostic testing, Therapeutic intervention Activity Recommendations Activity Limitations: resume your previous activity . Instructions / Follow-Up Instructions / Follow-Up Please follow-up with Dr. Minor on April 02 at 2:45PM * You will be on metoprolol, nifedipine and Diovan for blood pressure * You are started on Lexapro - this is for depression and you should take this every day * You are also prescribed Ativan - Only take this as needed, up to two times per day * You will be prescribed Requip for restless leg syndrome Current Hospital Diet Patient's current hospital diet: Regular Diet Discharge Diet Recommended Diet: Regular Diet Pending Studies Studies pending at discharge: no Medical Emergencies . Who to Call and When: Medical Emergencies: If at any time you feel your situation is an emergency, please call 911 immediately. . Non-Emergent Contact Non-Emergency issues call your: Primary Care Provider . . "Provider Documentation" section prepared by Cheryl Grissom. . VTE Core Measure Inpt VTE Proph given/why not?: Unfractionated heparin SQ [place] Drug Monitoring Program Search Results: patient reviewed within database, no issues identified
--- NOTE | 2017-03-28 14:34 | Discharge Summary ---
Discharge Summary Date of Service Mar 28, 2017. Discharge Summary Admission Date: Mar 23, 2017 at 23:01 Discharge Date: Mar 28, 2017 Discharge Disposition: Home Principal Diagnosis: Hypertensive Urgency Depression/Anxiety Restless Leg Syndrome Medication Reconciliation New Medications: Escitalopram Oxalate (Lexapro) 5 Mg Tab 1 TAB PO DAILY for 30 Days, #30 TAB 2 Refills Lorazepam (Lorazepam) 0.5 Mg Tab 0.5 MG PO BID PRN for Anxiety for 5 Days, #10 TABS Potassium Chloride (Klor-Con M20) 20 Meq Tabcr 20 MEQ PO BID for 10 Days, #20 TABS Metoprolol Tartrate (Lopressor) (Lopressor) 50 Mg Tab 50 MG PO BID for 30 Days, #60 TAB Ropinirole HCl (Ropinirole HCl) 0.25 Mg Tab 0.25 MG PO HS for 30 Days, #30 TAB Continued Medications: Brimonidine Tartrate-Timolol M (Combigan) 1 Azra Azra 1 DROP OP BID for 10 Days, #1 BTL Folic Acid (Folic Acid) 1 Mg Tab 1 TAB OR DAILY for 30 Days, #30 TAB Leflunomide (Arava) 20 Mg Tab 1 TAB PO DAILY for 30 Days, #30 TAB Levothyroxine Sodium (Synthroid) 25 Mcg Tab 25 MCG PO DAILY for 30 Days, #30 TAB Methotrexate Sodium (Methotrexate) 2.5 Mg Tab 2.5 MG PO WK for 28 Days, #4 TAB Nifedipine (Nifedipine Er) 60 Mg Tab 1 TAB PO DAILY for 30 Days, #30 TAB 3 Refills Oxycodone/Acetaminophen 5MG/325MG (Percocet 5MG/325MG) Tab 1 TABLET PO Q6H PRN for Pain for 5 Days, #20 TAB PAIN Pantoprazole Sodium (Protonix) 40 Mg Tab 40 MG PO DAILY for 30 Days, #30 TAB Prednisone (Prednisone) 5 Mg Tab 2.5 MG OR DAILY for 10 Days, #10 Trazodone HCl (Trazodone HCl) 100 Mg Tab 50 MG OR DAILY PRN for Pain for 5 Days, #3 TAB Valsartan (Diovan) 80 Mg Tab 80 MG PO DAILY for 30 Days, #30 TAB Discontinued Medications: Carvedilol (Carvedilol) 6.25 Mg Tab 1 TAB OR BID for 30 Days, #60 TAB Admission Information HPI (per Admitting provider): This is a 76 year old who was transferred as direct admission from [facility] after being treated for left lower quadrant abdominal pain with CT finding of diverticulosis. The primary reason for the transfer from [facility] as per the hospitalist physician who accepted the transfer at [facility] was that [facility] lacked specialty services such as Gastroenterology service. In addition patient was treated for hypokalemia with potassium supplements, hypertension, anemia workup. Other medical issues is rheumatoid arthritis for which patient takes methotrexate weekly and history of right lung nodule other history of pancreatitis in the past. In addition there is a H/P report from [facility] dated 01/19/18 that reported "Partial occlusive thrombosis within the superficial venous structures at the right popliteal fossa and left calf." When patient arrived to [facility], heparin drip was started due to this report of DVT. However, the ultrasound performed at [facility] of lower extremities and heparin drip was subsequently stopped Physical Exam (per Admitting): General Appearance: no apparent distress Head: normocephalic, atraumatic Eyes: normal inspection, EOMI, sclerae normal ENT: normal ENT inspection, hearing grossly normal, pharynx normal Neck: supple, thyroid normal, no JVD, trachea midline Respiratory/Chest: chest non-tender, lungs clear, normal breath sounds, no respiratory distress, no accessory muscle use Cardiovascular: regular rate, rhythm, no edema, no JVD, normal peripheral pulses Abdomen/GI: normal bowel sounds, soft, + pertinent finding (tenderness of left lower quadrant) Back: normal inspection, no CVA tenderness, normal range of motion Extremities/Musculoskelatal: normal inspection, no calf tenderness, no pedal edema, non-tender Neurologic/Psych: no motor/sensory deficits, alert, normal mood/affect, oriented x 3 Skin: normal color, warm/dry, no rash Hospital Course HYPERTENSIVE URGENCY 03/28 plan to d/c on metoprolol, Diovan and nifedipine BP much improved; goal of < 150/90 03/27 appreciate cardiology consult we will continue current regimen, monitor blood pressure throughout today continue Lexapro and Ativan PRN for anxiety/mood disorder will continue Requip for restless leg syndrome 03/26 appreciate cardiology consult for now, on b-lorenzo, decrease Diovan and possibly d/c Nifedipine if BP drops 03/25 pt has been on multiple antihypertensive medication Coreg 6.25/Diovan 80 mg /Nifedipine 60 mg BP remains persistently elevated pt denies of any feeling of headache /SOB or LUNA Cardiology eval requested ECHO ordered to assess hypertensive heart disease PRN Ativan ordered for anxiety LEFT LOWER QUADRANT ABDOMINAL PAIN : - RESOLVED improved presented to [facility] with complain of left lower quadrant pain constant associated with nausea no vomiting pain is worse after eating , loose bowel movement after each meals CT abdomen /pelvis in [facility] -Diverticulosis , no evidence of inflammation or diverticulitis pt never had colonoscopy in past possible irritable bowel symptom ordered Flexeril TID for muscle spasm GI eval requested appreciated input recommend out pt colonoscopy ANXIETY DISORDER : pt mentions of being very anxious ,poor sleep , worried about everything anxious about all her symptoms constantly Pt mentions she always been worried and stressed with every day life never requested counselling or Psychiatric help -as it will maker her looking : weak" wiling to have Psychiatry consultation and trial of SSRI Psych consult requested INSOMNIA : due to above cont Trazodone, PRN Ativan ordered LEG NUMBNESS /PAIN : 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 mentions of having sharp/shooting pain going down to feet no hx of neuropathy /or DM ordered for Requip -pt reports improvement of symptom lower ext Doppler negative for DVT ANEMIA : due to anemia of chronic disease -RA MCV 98 , on Mtx /folic acid no report of dark stool or blood in stool GI consult appreciated recommends out pt EGD /Colonoscopy FULL CODE DVT PROPHYLAXIS sub q heparin DISPOSITION discharge home when medically stable Medicine follow up with Dr Minor will need out pt GI followup for EGD /Colonoscopy Total time spent on discharge = 45 minutes This includes examination of the patient, discharge planning, medication reconciliation, and communication with other providers. Discharge Instructions Please follow-up with Dr. Minor on April 02 at 2:45PM * You will be on metoprolol, nifedipine and Diovan for blood pressure * You are started on Lexapro - this is for depression and you should take this every day * You are also prescribed Ativan - Only take this as needed, up to two times per day * You will be prescribed Requip for restless leg syndrome
== END 2017-03-28 16:25 | disposition home health service (06) | DRG 305 ==
LOC: C.MED 22:33 → UNDOADMIN 22:33 → C.MED 23:01 → ENRESERV 03-25 17:29 → C.4E 03-25 20:22
PROVIDERS: ADMIT Hospitalist; ATTEND Family Medicine
DX: I16.0 Hypertensive urgency (principal); K57.90 Diverticulosis of intestine, part unspecified, without perforation or abscess without bleeding; E87.6 Hypokalemia; I10 Essential (primary) hypertension; F41.9 Anxiety disorder, unspecified; F32.9 Major depressive disorder, single episode, unspecified; E03.9 Hypothyroidism, unspecified; D64.9 Anemia, unspecified; M06.9 Rheumatoid arthritis, unspecified; G47.00 Insomnia, unspecified; G25.81 Restless legs syndrome; Z79.52 Long term (current) use of systemic steroids; Z79.899 Other long term (current) drug therapy

== ENCOUNTER → 2017-10-23 | Outpatient (CLI) | payer BC ==
[~2017-10-23] MED LIST: ATV5 PO; BRIM0.2S OP; DSY100 OR; ESCI5TAB PO; FLV1 OR; LEVO25TA PO; MCRK20 PO; METO50TA16 PO; NIFE60TA66 PO; PRD5 OR; RQP25 PO
[2017-10-23 13:04] LABS: BASO % 0.6 %; BASO ABS # 0.05 K/uL (0-0.2); EOS % 1.8 %; EOS ABS # 0.14 K/uL (0-0.5); HEMATOCRIT 34.2 % (37-47); IG# 0.02 K/uL (0.00-0.02); LYMPH % 22.7 %; MEAN CELL VOLUME 87.7 fL (80-100); MEAN CORPUSCULAR HEMOGLOBIN 28.2 pg (25-34); MEAN CORPUSCULAR HGB CONC 32.2 g/dl (32-36); MEAN PLATELET VOLUME 9.5 fL (7.4-10.4); MONO % 9.8 %; MONO ABS # 0.78 K/uL (0.11-0.59); NEUT % 64.8 %; NEUT ABS # 5.13 K/uL (1.4-6.5); PLATELET COUNT 312 K/uL (130-400); RED CELL DISTRIBUTION WIDTH CV 14.3 % (11.5-14.5); RED CELL DISTRIBUTION WIDTH SD 45.9 fL (36.4-46.3); WHITE BLOOD COUNT 7.92 K/uL (4.8-10.8)
[2017-10-23 13:34] LABS: ALBUMIN 3.3 gm/dl (3.4-5.0); ALKALINE PHOSPHATASE 88 U/L (45-117); ALT/SGPT 17 U/L (12-78); AST/SGOT 13 U/L (15-37); BLOOD UREA NITROGEN 28 mg/dl (7-18); CARBON DIOXIDE 28 mmol/L (21-32); CREATININE 1.06 mg/dl (0.60-1.20); GLUCOSE 119 mg/dl (70-99); POTASSIUM 3.5 mmol/L (3.5-5.1); SODIUM 140 mmol/L (136-145); TOTAL PROTEIN 6.7 gm/dl (6.4-8.2)
== END | disposition home or self-care (01) ==
LOC: C.LABPBG 10:32
PROVIDERS: ATTEND Internal Medicine
DX: M06.09 Rheumatoid arthritis without rheumatoid factor, multiple sites (principal); Z79.899 Other long term (current) drug therapy

== ENCOUNTER 2018-08-30 11:50 | Inpatient (IN) ==
--- NOTE | 2018-08-13 14:36 | Anesthesiology Consultation ---
Date of Service August 13, 2018 Assessment & Plan (1) Encounter for pre-operative examination: Chart Review Chart Review: Acceptable Risk for Surgery and Patient seen in Pre Admission Testing Consults Requested none Teaching & Discussion Pre-Anesthesia Teaching/Discussion Notes: Instructed NPO after midnight before surgery, except medications with 15 cc of water. Medication instructions provided according to the PAT guidelines. History Surgery Operation Date: 08/30/18 14:30 Proposed Procedures p Left Total Knee Replacement - [place]ano Dickens DO Height/Weight Height: 5 ft 4 in Weight: 77.4 kg Allergies Allergy/AdvReac Type Severity Reaction Status Date / Time aspirin Allergy Severe ANAPHYLAXIS Verified 08/12/18 14:59 Medications Home Medications Medication Instructions Recorded Confirmed Last Taken Combigan 1 drp OPB BID 11/07/17 08/12/18 08/12/18 Travatan Z 1 drp OPB HS 11/07/17 08/12/18 08/12/18 cyanocobalamin (vitamin B-12) 1,000 mcg PO HS 11/07/17 08/12/18 08/11/18 [Vitamin B-12] gabapentin 600 mg PO HS 11/07/17 08/12/18 08/11/18 hydroxychloroquine [Plaquenil] 200 mg PO HS 11/07/17 08/12/18 08/11/18 leflunomide [Arava] 20 mg PO QAM 11/07/17 08/12/18 08/12/18 levothyroxine 60 mcg PO QAM 11/07/17 08/12/18 08/12/18 magnesium 500 mg PO HS 11/07/17 08/12/18 08/11/18 nifedipine [Procardia XL] 60 mg PO QAM 11/07/17 08/12/18 08/12/18 pantoprazole [Protonix] 40 mg PO QAM 11/07/17 08/12/18 08/12/18 potassium chloride 20 meq PO QAM 11/07/17 08/12/18 08/12/18 ropinirole 0.5 mg PO HS 11/07/17 08/12/18 08/12/18 valsartan 80 mg PO QPM 11/07/17 08/12/18 08/11/18 Rhropressa 1 dose UD 08/12/18 08/12/18 08/11/18 Vicodin 1 dose PO UD PRN 08/12/18 08/12/18 Unknown brimonidine 1 drp OPHTHALMIC (EYE) DAILY 08/12/18 08/12/18 08/12/18 duloxetine [Cymbalta] 60 mg PO HS 08/12/18 08/12/18 08/11/18 metoprolol succinate 100 mg PO QAM 08/12/18 08/12/18 08/12/18 Past Medical History Medical History Anxiety Glaucoma High cholesterol Hypertension Admitted [facility] 03/2017 for labile HTN/HTNsive urgency, d/c'd on Metoprolol Neuropathy FEET Osteoarthritis Restless leg syndrome Rheumatoid arthritis FOLLOWS DR. TREVINO Thyroid disease Exercise / Class Metabolic Activity III < 4 Walking/Shop/Light housework (Minimal due to pain. Walks with cane. Able to slowly climb stairs. Denies CP or SOB at current activity level. ) Past Surgical History Surgical History History of carpal tunnel release RIGHT HAND History of total right knee replacement (TKR) Hx laparoscopic cholecystectomy Hx of arthroscopy RIGHT KNEE (MENISCUS) Hx of hysterectomy Hx of tonsillectomy Past Anesthesia History No Hx of Anesthesia Complications and No Family Hx of Anesthesia Complications History of PONV No Hx of PONV and Hx of Motion Sickness Social History Smoking Status: Never smoker Do You Dip or Chew Tobacco: No Hx Alcohol Use: Yes alcohol intake frequency: other Alcohol Intake Frequency Comment: AT MOST TWICE A WEEK, NONE FOR AWHILE Hx Substance Use: No substance use type: prescription drug Review of Systems Patient denies chest pain, shortness of breath, dyspnea on exertion, cough, wheezing, palpitations. +Joint Pain (Knees, Ankles, etc) +Acid reflux (controlled with current medications) Physical Exam Vital Signs BP: 146/82 P: 67 R: 16 T: 97.6 SPO2: 100% on RA ENMT Thyromental Distance: > or= 3.5 Finger Breadths (3.5) Mallampati Class: II Neck normal visual inspection and trachea midline; neck extension not limited Respiratory normal respiratory effort Auscultation: lungs clear to auscultation bilaterally Cardiovascular Rate/Rhythm: regular rate and regular rhythm Heart Sounds: no murmur Vessels: no carotid bruit Neurologic moves all extremities Psychiatric Orientation: alert and oriented x 3 Testing Laboratory Results 08/13/18 15:19 08/13/18 15:19 08/13/18 08/13/18 15:19 15:19 PT 10.3 INR 1.0 APTT 23.7 Blood Type B Negative Antibody Screen NEGATIVE Electrocardiogram Date: 08/13/18 Findings: + NSR @ (70) When compared with ECG of 03/24/17. NH interval has increased. Nonspecific T wave abnormality, improved in lateral leads. Chest X-Ray Date: 08/13/18 Findings: + NAD FINDINGS: Incidental note is made of cholecystectomy clips. There are multiple old healed right rib fractures. Old right AC joint fracture/dislocation is unchanged. There is no evidence for pulmonary edema or pneumonia. Cardiac size is normal. Mediastinal contours are normal. The appearance of the chest is unchanged. IMPRESSION: No acute cardiopulmonary findings. Echocardiogram Date: 03/23/17 EF: 65-70% Other Findings: + LVH (moderate) Aortic valve sclerosis moderate, without significant aortic valvular stenosis. There is focal calcification of the posterior mitral valve annulus. There is trace MR. There is mild TR. Cervical Spine Date: 11/13/17 1. Mild spondylolisthesis of C3 on C4 and C4 on C5. However, the alignment remains intact throughout flexion and extension. 2. Moderate to severe degenerative disc disease from C4 through C7.
--- NOTE | 2018-08-13 14:48 | PAT Medication Instructions ---
Medication Instructions Date of Service August 13, 2018 Home Medications Combigan 1 drp OPB BID Travatan Z 1 drp OPB HS cyanocobalamin (vitamin B-12) [Vitamin B-12] 1,000 mcg PO HS gabapentin 600 mg PO HS hydroxychloroquine [Plaquenil] 200 mg PO HS leflunomide [Arava] 20 mg PO QAM levothyroxine 60 mcg PO QAM magnesium 500 mg PO HS nifedipine [Procardia XL] 60 mg PO QAM pantoprazole [Protonix] 40 mg PO QAM potassium chloride 20 meq PO QAM ropinirole 0.5 mg PO HS valsartan 80 mg PO QPM Rhropressa 1 dose QPM Vicodin 1 dose PO NEEDED brimonidine 1 drp OPHTHALMIC (EYE) QPM duloxetine [Cymbalta] 60 mg PO HS metoprolol succinate 100 mg PO QAM ASK your prescriber and surgeon hydroxychloroquine [Plaquenil] 200 mg PO HS leflunomide [Arava] 20 mg PO QAM STOP taking 24 hours before surgery ropinirole 0.5 mg PO HS DO NOT take the morning of surgery potassium chloride 20 meq PO QAM Take morning of surgery With a small sip of water, OTHERWISE NOTHING TO EAT OR DRINK AFTER MIDNIGHT: Combigan 1 drp OPB BID levothyroxine 60 mcg PO QAM nifedipine [Procardia XL] 60 mg PO QAM pantoprazole [Protonix] 40 mg PO QAM metoprolol succinate 100 mg PO QAM Vicodin 1 dose PO NEEDED (if needed; stop 4 hours prior to surgery) Take evening before surgery Combigan 1 drp OPB BID Travatan Z 1 drp OPB HS cyanocobalamin (vitamin B-12) [Vitamin B-12] 1,000 mcg PO HS gabapentin 600 mg PO HS magnesium 500 mg PO HS valsartan 80 mg PO QPM Rhropressa 1 dose QPM Vicodin 1 dose PO NEEDED (if needed) brimonidine 1 drp OPHTHALMIC (EYE) QPM duloxetine [Cymbalta] 60 mg PO HS Other Notes If you have any questions please call us at [phone] or [phone] or [phone] or [phone]
--- NOTE | 2018-08-13 16:26 | XRay Report ---
XR chest Pre-admission PA/Lat CLINICAL HISTORY: Preoperative evaluation. COMPARISON STUDY: Chest radiograph March 25, 2017. FINDINGS: Incidental note is made of cholecystectomy clips. There are multiple old healed right rib f ractures. Old right AC joint fracture/dislocation is unchanged. There is no evidence for pulmonary ed jack or pneumonia. Cardiac size is normal. Mediastinal contours are normal. The appearance of the ches t is unchanged. IMPRESSION: No acute cardiopulmonary findings. Electronically signed by: Shivam Ward M.D. 08/13/2018 4:24 PM
[2018-08-13 16:34] LABS: Basophils # (auto) 0.05 K/uL (0-0.2); Basophils % (auto) 0.9 %; Eosinophils # (auto) 0.26 K/uL (0-0.5); Eosinophils % (auto) 4.5 %; Hematocrit (blood only) 34.8 % (37-47); Immature Granulocytes # (auto) 0.02 K/uL (0.00-0.02); Immature Granulocytes % (auto) 0.3 %; Lymphocytes # (auto) 1.58 K/uL (1.2-3.4); Lymphocytes % (auto) 27.3 %; Mean Corpuscular Hgb Conc 31.6 g/dL (32-36); Mean Corpuscular Volume 90.4 fL (80-100); Mean Platelet Volume 9.5 fL (7.4-10.4); Monocytes # (auto) 0.72 K/uL (0.11-0.59); Monocytes % (auto) 12.5 %; Neutrophils # (auto) 3.15 K/uL (1.4-6.5); Neutrophils % (auto) 54.5 %; Platelet Count 317 K/uL (130-400); RDW Standard Deviation 46.5 fL (36.4-46.3); Red Blood Count 3.85 M/uL (4.2-5.4); White Blood Count 5.78 K/uL (4.8-10.8)
[2018-08-13 16:47] LABS: BUN Creatinine Ratio 20.9 (10-20); Calcium 8.8 mg/dl (8.5-10.1); Creatinine Clr Calc Pharmacy 38.2 ml/min; Est GFR (African American) 47.4; Est GFR (Non-African American) 40.9; Potassium 4.2 mmol/L (3.5-5.1)
[2018-08-13 16:48] LABS: Partial Thromboplastin Ratio 0.9; Partial Thromboplastin Time 23.7 Seconds (21.0-31.0); Prothrombin Time 10.3 Seconds (9.0-12.0)
--- NOTE | 2018-08-29 16:34 | History & Physical Report ---
Date of Service August 29, 2018 Assessment & Plan (1) Rheumatoid arthritis involving left knee: We will proceed with a left total knee arthroplasty. Postoperatively she will be started on Xarelto 10 mg daily for 10 days because of an aspirin allergy. She will be kept overnight in the hospital for postop medical management. She plans to use energy physical therapy upon discharge. Present on Admission?: Yes History of Present Illness Chief Complaint: Rheumatoid arthritis of the left knee Primary Care Provider: Kj Minor MD Jossy is a pleasant 77-year-old female who initially presented to my office with bilateral knee pain. X-rays and clinical examination were diagnostic for advanced rheumatoid arthritis of both knees. I did a right total knee arthroplasty on her in November 2007 and she did very well with that. Unfortunately she is now having a lot of left knee pain. After failing conservative treatment, she has elected proceed with a left total knee arthroplasty. Allergies Allergy/AdvReac Type Severity Reaction Status Date / Time aspirin Allergy Severe ANAPHYLAXIS Verified 08/12/18 14:59 Home Medications Home Medications Medication Instructions Recorded Confirmed Type Combigan 1 drp OPB BID 11/07/17 08/12/18 History Travatan Z 1 drp OPB HS 11/07/17 08/12/18 History cyanocobalamin (vitamin B-12) 1,000 mcg PO HS 11/07/17 08/12/18 History [Vitamin B-12] gabapentin 600 mg PO HS 11/07/17 08/12/18 History hydroxychloroquine [Plaquenil] 200 mg PO HS 11/07/17 08/12/18 History leflunomide [Arava] 20 mg PO QAM 11/07/17 08/12/18 History levothyroxine 60 mcg PO QAM 11/07/17 08/12/18 History magnesium 500 mg PO HS 11/07/17 08/12/18 History nifedipine [Procardia XL] 60 mg PO QAM 11/07/17 08/12/18 History pantoprazole [Protonix] 40 mg PO QAM 11/07/17 08/12/18 History potassium chloride 20 meq PO QAM 11/07/17 08/12/18 History ropinirole 0.5 mg PO HS 11/07/17 08/12/18 History valsartan 80 mg PO QPM 11/07/17 08/12/18 History Rhropressa 1 dose UD 08/12/18 08/12/18 History Vicodin 1 dose PO UD PRN 08/12/18 08/12/18 History brimonidine 1 drp OPHTHALMIC (EYE) DAILY 08/12/18 08/12/18 History duloxetine [Cymbalta] 60 mg PO HS 08/12/18 08/12/18 History metoprolol succinate 100 mg PO QAM 08/12/18 08/12/18 History Past Med/Surg History Medical History Anxiety Glaucoma High cholesterol Hypertension Admitted [facility] 03/2017 for labile HTN/HTNsive urgency, d/c'd on Metoprolol Neuropathy FEET Osteoarthritis Restless leg syndrome Rheumatoid arthritis FOLLOWS DR. TREVINO Thyroid disease Surgical History History of carpal tunnel release RIGHT HAND History of total right knee replacement (TKR) Hx laparoscopic cholecystectomy Hx of arthroscopy RIGHT KNEE (MENISCUS) Hx of hysterectomy Hx of tonsillectomy Social History Preferred Language: Macedonian Communication Ability: Effective Visual Impairment: No Limitations Alum Mixer Required: No Beliefs That Will Affect Care: None Current Living Situation: Alone Other Information That Helps Us Care for You: No Feels Safe at Home: Yes Smoking Status: Never smoker Do You Dip or Chew Tobacco: No Hx Alcohol Use: Yes Hx Substance Use: No Review of Systems All systems reviewed & are unremarkable except as noted in HPI & below Physical Exam Constitutional: WD/WN, vitals as above Eyes: PERRL, conjunctivae normal, anicteric sclerae ENMT: external ear and nose normal, oropharynx normal Neck: trachea midline, no thyromegaly Respiratory: normal respiratory effort Cardiovascular: RRR, no murmur, no edema Gastrointestinal (Abdomen): normal bowel sounds, soft, nontender, no hepatosplenomegaly Musculoskeletal: On physical examination of the left knee there is a trace effusion. There is near full range of motion and no evidence of instability. There is significant tenderness palpation along the medial and lateral joint lines and over the distal femoral condyles. Psychiatric: A+Ox3, euthymic affect Results & Data Diagnostic Findings Radiographs of the left knee demonstrate advanced osteoarthritis with joint space narrowing osteophyte formation and [id number] articulation.
[~2018-08-30 11:50] MED LIST changes: +ACETAMINOPHEN 500 MG TAB PO SCH; -ATV5 PO; -BRIM0.2S OP; +BUPIVACAINE 0.5 % 5 MG/1 ML PF 10ML VIAL ONE; +CEFAZOLIN 2000MG 2,000 MG/15 ML SYR IV SCH; -DSY100 OR; -ESCI5TAB PO; +FAMOTIDINE 20 MG TAB PO SCH; -FLV1 OR; +GABAPENTIN 300 MG PO SCH; -LEVO25TA PO; +LR 500ML BOLUS, THEN 15ML/HR IV SCH; +LR 60ML/HR IV SCH; -MCRK20 PO; -METO50TA16 PO; +MIDAZOLAM HCL 1 MG/ML 2ML VIAL ONE; -NIFE60TA66 PO; -PRD5 OR; +ROPIVACAINE 0.5% 5 MG/ML 30 ML VIAL ONE; +ROPIVACAINE 0.5% HCL/PF 150 MG, BUPIVACAINE 0.5% MPF 30 ML, EPINEPHrine 30MG/30ML (OR U... INFIL SCH; -RQP25 PO; +TRANEXAMIC ACID 1,000 MG **IV Intra-op IV SCH; +TRANEXAMIC ACID 1,000 MG **IV Pre-op IV SCH; +fentaNYL citrate 100 MCG/2 ML VIAL ONE
[2018-08-30] MEDS ORDERED: GABAPENTIN 300 MG CAP ONE (12:14)
[2018-08-30] MEDS ORDERED: FAMOTIDINE 20 MG TAB ONE (12:14)
[2018-08-30] MEDS ORDERED: ACETAMINOPHEN 500 MG TAB ONE (12:15)
[2018-08-30] MEDS ORDERED: CEFAZOLIN 2,000 MG/15 ML IV PUSH IV ONE (12:15)
[2018-08-30] MEDS ORDERED: ORTHO JOINT ANESTHETIC ONE (12:17)
--- NOTE | 2018-08-30 12:23 | History & Physical Bridge Note ---
Date of Service August 30, 2018 History & Physical Bridge Note I have examined the patient, reviewed the History & Physical and in the interval since the performance of the History & Physical I have noted the following changes of clinical significance: no changes noted
[2018-08-30] MEDS ORDERED: ePHEDrine sulfate 50 MG/ML AMP IV PRN (12:53)
[2018-08-30] MEDS ORDERED: PHENYLEPHRINE 100MCG/ML 5ML SYR IV PRN (12:53)
[2018-08-30] MEDS ORDERED: HYDROmorphone INJ 1 MG/ML SYRINGE IV PRN (12:53)
[2018-08-30] MEDS ORDERED: ATROPINE SULFATE 0.1 MG/ML 10ML SYR IV PRN (12:53)
[2018-08-30] MEDS ORDERED: ONDANSETRON INJ 2 MG/ML 2 ML VIAL IV PRN ×2 (12:53→15:53)
[2018-08-30] MEDS ORDERED: PROPOFOL IV EMULSION 10 MG/ML 20 ML VIAL IV ONE ×2 (13:41→14:33)
--- NOTE | 2018-08-30 15:12 | Operative Report ---
Post Operative Report Pre & Post Diagnosis Operation Date: 08/30/18 13:50 Pre-Op Diagnosis: Left Knee Degenerative Joint Disease Post-Op Diagnosis: Left Knee Degenerative Joint Disease Procedure Operation Date: 08/30/18 13:50 Actual Procedures p Left Total Knee Replacement(Left) - Michoacano Dickens DO Surgeon Michoacano Dickens DO Hand Router Operator None Estimated Blood Loss 20 Findings Consistent with Post-Op Diagnosis Specimens Bone Complications none Disposition Disposition: Recovery Room Indications Patient is a pleasant 77-year-old female who presented my office with increasing bilateral knee pain. X-rays and clinical examination were diagnostic for advanced osteoarthritis of both knees. She underwent a right total knee arthroplasty in November 2017. Unfortunately, her left knee was still bothering her. She elected to proceed with a left total knee arthroplasty. Description of Procedure Implants used: I used a [email or web address] total knee arthroplasty system with a size 65 femur, 67 tibia, 31 patella, and a size 10 PS polyethylene bearing. All components were cemented in place with Palacos G cement. The patient arrived [facility] [address] for the above procedure. There were seen in the preoperative holding area and the operative extremity was identified and signed. There were given a preoperative antibiotic, a spinal anesthetic and an adductor nerve block. There were taken back to the operating room and laid on the table in supine position. There were given basic sedation. The operative knee was then prepped and draped in sterile fashion. A timeout was done, and the patient and the operative extremity was properly identified. A midline incision was made directly over the patella. Dissection was taken down to the extensor mechanism. A subvastus arthrotomy was used. The medial retinaculum was released and the fat pad was mostly left intact. The knee was flexed and the ACL, PCL, and meniscus were removed. A drill was sent down the center of the femoral canal followed by an intramedullary varsha. Off that varsha a distal femoral cutting block was placed. 9 mm was resected off the distal femur at 5 of valgus. A posterior referencing AP sizing guide was then placed on the distal femur. The femur measured to be a size 65. 2 drill holes were placed in 3 of external rotation. A 4-in-1 cutting block was then impacted into place. Anterior posterior and chamfer cuts were then made. The posterior stabilizing box guide was then impacted into place and the box was resected for the posterior stabilizing component. The proximal tibia was then exposed. A drill was sent down the center of the tibial canal followed by an intramedullary varsha. Off that varsha a proximal tibial resection guide was placed. The proximal tibia was then resected. The tibia measured to be a size 67. The tibial plate was then placed in the appropriate rotation and the tibia was punched. The posterior aspect of the knee was then opened up and any additional meniscus fragments and osteophytes were removed. Trial components were then placed. I used a size 10 PS polyethylene insert. The knee was brought through a full range of motion and felt to be stable. The patella was then everted and 8 mm was resected off the posterior aspect of the patella. The patella measured to be a size 31. 3 peg holes were then drilled. A trial patella was placed. The knee was once again brought through a full range of motion and felt to be stable. Trial components were then removed. The surrounding soft tissues were injected with 100 cc of an orthopedic pain control cocktail. All components were then cemented into place with Palacos G cement. The final polyethylene insert was then snapped into place and the anterior bar was locked. Once cement was dry the tourniquet was deflated. Hemostasis was obtained. A dilute betadyne lavage was then done for 3 minutes. The joint was then irrigated with normal saline solution. The subvastus arthrotomy was then closed with #1 Vicryl suture. The skin was closed with 2-0 Vicryl, 3-0V lock suture, and sosa. A soft compressive dressing was placed. The patient was then transferred to a hospital bed and taken to the postanesthesia care unit in stable condition. They tolerated the procedure well. I attest to the content of the Intraoperative Record and any orders documented therein. Any exceptions are noted below.
--- NOTE | 2018-08-30 15:33 | Anesthesiology Progress Note ---
Date of Service August 30, 2018 Anesthesia Post Procedure Vital Signs Vital Signs: Temp Pulse Resp BP Pulse Ox 08/30/18 15:25 68 14 175/88 H 100 08/30/18 15:15 36.7 C 70 14 175/86 H 99 08/30/18 12:32 36.4 C L 76 20 156/102 H 100 Pain Intensity Left Knee: Pain Intensity: 0 Transfer of Care Handoff Completed per policy Notes Mental Status: alert / awake / arousable and participated in evaluation Patient Amnestic to Procedure: Yes Nausea / Vomiting: adequately controlled Pain: adequately controlled Airway Patency, RR, SpO2: stable & adequate BP & HR: stable & adequate Hydration State: stable & adequate Anesthetic Complications: no major complications apparent
--- NOTE | 2018-08-30 15:34 | Anesthesiology Progress Note ---
Date of Service August 30, 2018 Anesthesia Post Procedure Vital Signs Vital Signs: Temp Pulse Resp BP Pulse Ox 08/30/18 15:25 68 14 175/88 H 100 08/30/18 15:15 36.7 C 70 14 175/86 H 99 08/30/18 12:32 36.4 C L 76 20 156/102 H 100 Pain Intensity Left Knee: Pain Intensity: 0 Transfer of Care Handoff Completed per policy Notes Mental Status: alert / awake / arousable Patient Amnestic to Procedure: Yes Nausea / Vomiting: adequately controlled Pain: adequately controlled Airway Patency, RR, SpO2: stable & adequate BP & HR: stable & adequate Hydration State: stable & adequate Neuraxial Anesthesia: was administered and sensory block is resolving Anesthetic Complications: no major complications apparent
[2018-08-30] MEDS ORDERED: HYDROmorphone INJ 0.5 MG/0.5 ML SYR IV PRN (15:53)
[2018-08-30] MEDS ORDERED: NALOXONE HCL 0.4 MG/1 ML VIAL/CARP IV PRN (15:53)
[2018-08-30] MEDS ORDERED: BISACODYL 10 MG SUPP PR PRN (15:53)
[2018-08-30] MEDS ORDERED: SODIUM CHLORIDE 0.9% 1000ML 1,000 ML IV SCH (15:53)
[2018-08-30] MEDS ORDERED: MAGNESIUM HYDROXIDE SUSP 30 ML UDC PO PRN (15:53)
[2018-08-30] MEDS ORDERED: METOCLOPRAMIDE HCL INJ 5 MG/ML 2 ML VIAL IV PRN (15:53)
--- NOTE | 2018-08-30 15:58 | XRay Report ---
XR knee LT 2V routine CLINICAL HISTORY: Surgical Post Op postoperative evaluation COMPARISON: None. DISCUSSION: Anatomic alignment post total left knee arthroplasty. Good contact between prosthetic and underlying bone. Expected post operative soft tissue change. IMPRESSION: Anatomic alignment post total left knee arthroplasty. The above report was generated using voice recognition software. It may contain grammatical, syntax or spelling errors. Electronically signed by: Enoch Gonzalez M.D. 08/30/2018 3:57 PM
[2018-08-30 16:46] LABS: Albumin Level 3.2 gm/dl (3.4-5.0); Bilirubin Direct 0.1 mg/dl (0-0.2); Bilirubin,Total 0.4 mg/dl (0.2-1); Total Protein 6.2 gm/dl (6.4-8.2)
[2018-08-30] MEDS: KETOROLAC TROMETHAMINE 15 MG/ML VIAL IV SCH ×2 (17:19→22:05)
[2018-08-30] MEDS ORDERED: HydrALAZINE HCL 20 MG/ML VIAL IV STA (18:41)
--- NOTE | 2018-08-30 19:34 | Consultation ---
Date of Consultation August 30, 2018 Assessment & Plan (1) Status post left knee replacement: This is a 77yo F with a PMH of rheumatoid arthritis, hypertension, hypothyroidism, history of glaucoma and mood disorder who is POD#0 s/p L knee replacement by Dr. Dickens. -POD#0 s/p L knee replacement by Dr. Dickens. -Pt is doing well post-operatively -Per ortho for pain control, wound care, anticoagulation and activities -Monitor H&H (EBL: 20ml), continue incentive spirometry, PT/OT when appropriate (2) HTN (hypertension): BP was elevated at 206/104 postoperatively but is since improved to 164/85 -Continue home regimen with 100 mg metoprolol succinate and nicardipine 60 mg in the morning as well as valsartan 80 mg in the evening -Added PRN IV Hydralazine 10mg Q6H for SBP >160 (3) Rheumatoid arthritis: Continue Plaquenil and Arava (4) Anxiety: Continue Cymbalta (5) Glaucoma: Continue Alphagan, Combigan, Rhopressa and Travatan drops (6) Restless leg syndrome: Continue Requip PCP: Mily Dispo: Per primary service Patient seen in collaboration with Dr. Zurita. Please see addendum. Supervising Physician Co-Signing Physician Notes Attending Addendum: delayed entry date of servive noted above care coordinated with ALVIN Gómez please refer to her notes for full details, I agree with her notes patient seen and examined, records reviewed by myself as well on exam, patient seen resting in bed, comfortable denies chest pain, dyspnea, palpitations, nausea/vomiting no other symptoms VS noted and reviewed oriented x3, not in distress, speaks in sentences with no effort nor accessory muscle use normal rate, regular rhythm, no murmurs clear breath sounds bilaterally non distended, soft, nontender no bipedal edema, erythema, warmth right knee: heavy dressing in place no neuro deficits WBC 9.8 Hg 10.2 Crea 1.23 ASSESSMENT AND PLAN HYPERTENSION not controlled add PRN Hydralazine for now continue usual BP meds will monitor closely RHEUMATOID ARTHRITIS continue usual medications other diagnoses and plan of care as per ALVIN Gómez's notes Ebenezer Zurita MD History of Present Illness Reason for Consultation: Postop medical management Attending Physician: Michoacano Dickens, DO History of Present Illness This is a 77yo F with a PMH of rheumatoid arthritis, hypertension, hypothyroidism, history of glaucoma and mood disorder who is POD#0 s/p L knee replacement by Dr. Dickens. Patient feels well postoperatively, denying surgical site pain. Tolerated dinner well without issue. Denies any fever, chills, lightheadedness, headache, chest pain, palpitations, shortness of breath, abdominal pain or dysuria. Last BM was this morning. We were consulted to help with blood pressure control. BP was 206/104 postoperatively but is since improved to 164/85. Denies any lightheadedness, visual changes, nausea or vomiting. Patient's home blood pressure regimen includes 100 mg metoprolol succinate and nicardipine 60 mg in the morning as well as valsartan 80 mg in the evening. Allergies Allergy/AdvReac Type Severity Reaction Status Date / Time aspirin Allergy Severe ANAPHYLAXIS Verified 08/30/18 12:21 Home Medications Home Medications Medication Instructions Recorded Confirmed Type Combigan 1 drp OPB BID 11/07/17 08/12/18 History Travatan Z 1 drp OPB HS 11/07/17 08/30/18 History cyanocobalamin (vitamin B-12) 1,000 mcg PO HS 11/07/17 08/12/18 History [Vitamin B-12] gabapentin 600 mg PO BID 11/07/17 08/30/18 History hydroxychloroquine [Plaquenil] 200 mg PO HS 11/07/17 08/12/18 History leflunomide [Arava] 20 mg PO QAM 11/07/17 08/12/18 History magnesium 500 mg PO HS 11/07/17 08/12/18 History nifedipine [Procardia XL] 60 mg PO QAM 11/07/17 08/12/18 History pantoprazole [Protonix] 40 mg PO QAM 11/07/17 08/12/18 History potassium chloride 20 meq PO QAM 11/07/17 08/12/18 History ropinirole 0.5 mg PO HS 11/07/17 08/12/18 History valsartan 80 mg PO QPM 11/07/17 08/12/18 History Rhropressa 1 dose UD 08/12/18 08/12/18 History brimonidine 1 drp OPHTHALMIC (EYE) DAILY 08/12/18 08/12/18 History duloxetine [Cymbalta] 60 mg PO HS 08/12/18 08/12/18 History metoprolol succinate 100 mg PO QAM 08/12/18 08/12/18 History levothyroxine 50 mcg PO DAILY 08/30/18 08/30/18 History Patient History Medical History Neuropathy (Chronic) FEET Osteoarthritis (Chronic) Rheumatoid arthritis (Chronic) FOLLOWS DR. TREVINO Restless leg syndrome (Chronic) Glaucoma (Chronic) Anxiety (Chronic) High cholesterol (Chronic) Hypertension (Chronic) Admitted [facility] 03/2017 for labile HTN/HTNsive urgency, d/c'd on Metoprolol Surgical History History of total right knee replacement (TKR) (Chronic) History of carpal tunnel release (Chronic) RIGHT HAND Hx laparoscopic cholecystectomy (Chronic) Hx of arthroscopy (Chronic) RIGHT KNEE (MENISCUS) Hx of hysterectomy (Chronic) Hx of tonsillectomy (Chronic) Family History Mother Family history of reaction to anesthesia SLOW TO AWAKEN Social History Preferred Language: Kazakh Communication Ability: Effective Visual Impairment: No Limitations Marking Stitcher Required: No Beliefs That Will Affect Care: None Current Living Situation: Alone Other Information That Helps Us Care for You: No Feels Safe at Home: Yes Smoking Status: Never smoker Do You Dip or Chew Tobacco: No Hx Alcohol Use: Yes Hx Substance Use: No Review of Systems Review of Systems: At least ten systems reviewed and negative except as noted in the HPI. Physical Exam Physical Exam: General Appearance: WD/WN, no apparent distress, resting comfortably Head: normocephalic, atraumatic Eyes: normal inspection, PERRL, EOMI ENT: hearing grossly normal, pharynx normal (moist mucous membranes) Neck: supple, no JVD, no adenopathy Respiratory/Chest: lungs clear to auscultation. No wheezes, rales or rhonci. No respiratory distress or accessory muscle use Cardiovascular: regular rate, rhythm, no murmur, normal peripheral pulses Abdomen/GI: normal bowel sounds, soft, non-tender to palpation Extremities/Musculoskelatal: Left knee with surgical dressing in place. Clean, dry, intact. Normal inspection, no calf tenderness, normal capillary refill, no pedal edema. + SCDs Neurologic/Psych: alert, normal mood/affect, oriented x 3 Skin: normal color, warm/dry Results & Data Vital Signs (Past 12 Hours) Vital Signs Temp Pulse Resp BP Pulse Ox 08/30/18 16:54 36.4 C L 70 16 192/90 H 100 08/30/18 16:20 36.5 C 68 16 205/85 H 100 08/30/18 15:50 36.6 C 70 16 206/104 H 100 08/30/18 15:35 36.6 C 66 20 177/93 H 100 08/30/18 15:25 68 14 175/88 H 100 08/30/18 15:15 36.7 C 70 14 175/86 H 99 08/30/18 12:32 36.4 C L 76 20 156/102 H 100
[2018-08-30] MEDS: CEFAZOLIN 1000MG 1,000 MG/7.5 ML SYR IV SCH (20:59)
[2018-08-30] MEDS ORDERED: VALSARTAN 80 MG TAB PO SCH (21:00)
[2018-08-30] MEDS: DULOXETINE HCL 60 MG CAP PO SCH (21:00)
[2018-08-30] MEDS: DOCUSATE SODIUM 100 MG CAP PO SCH (21:00)
[2018-08-30] MEDS: GABAPENTIN 300 MG CAP PO SCH (21:00)
[2018-08-30] MEDS: ROPINIROLE HCL 0.25 MG TABLET PO SCH (21:01)
[2018-08-30] MEDS: HYDROXYCHLOROQUINE SULFATE 200 MG TAB PO SCH (21:01)
[2018-08-30] MEDS: TRAVOPROST Z 0.004% OPH SOLN 2.5 ML BTL OPB SCH (21:02)
[2018-08-30] MEDS: SENNA 8.6 MG TAB PO SCH (21:02)
[2018-08-30] MEDS ORDERED: HydrALAZINE HCL 20 MG/ML VIAL IV PRN (22:00)
[2018-08-30] MEDS: ACETAMINOPHEN 500 MG TAB PO SCH (22:05)
[2018-08-30] MEDS ORDERED: PROMETHAZINE HCL 12.5 MG in SODIUM CHLORIDE 0.9% 50 ML IV PRN (23:24)
[2018-08-30 23:49] LABS: Hematocrit (blood only) 31.5 % (37-47); Hemoglobin 10.2 g/dL (12.0-16.0); Mean Corpuscular Hgb Conc 32.4 g/dL (32-36); Mean Platelet Volume 8.8 fL (7.4-10.4); Platelet Count 242 K/uL (130-400); RDW Coefficient of Variation 14.2 % (11.5-14.5); RDW Standard Deviation 46.7 fL (36.4-46.3); Red Blood Count 3.54 M/uL (4.2-5.4); White Blood Count 9.87 K/uL (4.8-10.8)
[2018-08-31 00:01] LABS: Partial Thromboplastin Ratio 0.9; Partial Thromboplastin Time 23.8 Seconds (21.0-31.0)
[2018-08-31 00:09] LABS: Alanine Aminotransferase 19 U/L (12-78); Albumin Level 3.1 gm/dl (3.4-5.0); Aspartate Aminotransferase 22 U/L (15-37); BUN Creatinine Ratio 19.9 (10-20); Basophils # (auto) 0.03 K/uL (0-0.2); Basophils % (auto) 0.3 %; Bilirubin Direct < 0.1 mg/dl (0-0.2); Blood Urea Nitrogen 28 mg/dl (7-18); Calcium 8.1 mg/dl (8.5-10.1); Carbon Dioxide 22 mmol/L (21-32); Chloride 112 mmol/L (98-107); Creatinine Clr Calc Pharmacy 34.6 ml/min; Eosinophils # (auto) 0.05 K/uL (0-0.5); Eosinophils % (auto) 0.5 %; Est GFR (African American) 42.5; Est GFR (Non-African American) 36.7; Glucose 116 mg/dl (70-99); Immature Granulocytes # (auto) 0.02 K/uL (0.00-0.02); Immature Granulocytes % (auto) 0.2 %; Lymphocytes # (auto) 0.87 K/uL (1.2-3.4); Lymphocytes % (auto) 8.8 %; Magnesium 2.4 mg/dl (1.8-2.4); Monocytes % (auto) 8.1 %; Neutrophils % (auto) 82.1 %; Potassium 3.9 mmol/L (3.5-5.1); Sodium 143 mmol/L (136-145)
[2018-08-31 00:12] LABS: Alkaline Phosphatase 99 U/L (45-117); Bilirubin,Total 0.4 mg/dl (0.2-1); Total Protein 6.2 gm/dl (6.4-8.2)
[2018-08-31] MEDS ORDERED: SODIUM CHLOR 0.45% + 20MEQ KCL 20 MEQ/1,000 ML BAG IV STA (00:52)
--- NOTE | 2018-08-31 00:53 | Hospitalist Progress Note ---
Date of Service August 31, 2018 Subjective Made aware by RN of uncontrolled BP postop SBP 150-200s Patient nauseous, S OB as per RN. No chest pain complaints as per RN. Chest x-ray as per my interpretation: Atelectasis, cardiomegaly Serum crea = 1.4 AP Hypertensive urgency ARF Hold Toradol, home ARB for now Baseline UA, IVF Continue home beta-lorenzo, calcium channel lorenzo meds Initiate Norvasc Will relay to AM provider. Results & Data Vital Signs (Past 12 Hours) Vital Signs Temp Pulse Pulse Resp BP BP Pulse Ox 08/30/18 23:20 76 173/80 H 08/30/18 22:55 36.5 C 79 16 182/88 H 191/95 H 96 08/30/18 22:18 176/87 H 08/30/18 21:00 67 164/86 H 08/30/18 20:58 163/74 H 08/30/18 17:50 36.6 C 70 16 176/83 H 99 08/30/18 16:54 36.4 C L 70 16 192/90 H 100 08/30/18 16:20 36.5 C 68 16 205/85 H 100 08/30/18 15:50 36.6 C 70 16 206/104 H 100 08/30/18 15:35 36.6 C 66 20 177/93 H 100 08/30/18 15:25 68 14 175/88 H 100 08/30/18 15:15 36.7 C 70 14 175/86 H 99 Laboratory Results Laboratory Results WBC 9.87 K/uL (4.8-10.8) 08/30/18 23:41 RBC 3.54 M/uL (4.2-5.4) L 08/30/18 23:41 Hgb 10.2 g/dL (12.0-16.0) L 08/30/18 23:41 Hct 31.5 % (37-47) L 08/30/18 23:41 MCV 89.0 fL (80-100) 08/30/18 23:41 MCH 28.8 pg (25-34) 08/30/18 23:41 MCHC 32.4 g/dL (32-36) 08/30/18 23:41 RDW Std Deviation 46.7 fL (36.4-46.3) H 08/30/18 23:41 RDW Coeff of Mario 14.2 % (11.5-14.5) 08/30/18 23:41 Plt Count 242 K/uL (130-400) 08/30/18 23:41 MPV 8.8 fL (7.4-10.4) 08/30/18 23:41 Immature Gran % (Auto) 0.2 % 08/30/18 23:41 Neut % (Auto) 82.1 % 08/30/18 23:41 Lymph % (Auto) 8.8 % 08/30/18 23:41 [place] % (Auto) 8.1 % 08/30/18 23:41 Eos % (Auto) 0.5 % 08/30/18 23:41 Baso % (Auto) 0.3 % 08/30/18 23:41 Immature Gran # (Auto) 0.02 K/uL (0.00-0.02) 08/30/18 23:41 Neut # (Auto) 8.10 K/uL (1.4-6.5) H 08/30/18 23:41 Lymph # (Auto) 0.87 K/uL (1.2-3.4) L 08/30/18 23:41 [place] # (Auto) 0.80 K/uL (0.11-0.59) H 08/30/18 23:41 Eos # (Auto) 0.05 K/uL (0-0.5) 08/30/18 23:41 Baso # (Auto) 0.03 K/uL (0-0.2) 08/30/18 23:41 PT 10.3 Seconds (9.0-12.0) 08/13/18 15:19 INR 1.0 (0.9-1.1) 08/13/18 15:19 APTT 23.8 Seconds (21.0-31.0) 08/30/18 23:41 PTT Ratio 0.9 08/30/18 23:41 Sodium 143 mmol/L (136-145) 08/30/18 23:41 Potassium 3.9 mmol/L (3.5-5.1) 08/30/18 23:41 Chloride 112 mmol/L (98-107) H 08/30/18 23:41 Carbon Dioxide 22 mmol/L (21-32) 08/30/18 23:41 Anion Gap 9.0 (3-11) 08/30/18 23:41 BUN 28 mg/dl (7-18) H 08/30/18 23:41 Creatinine 1.40 mg/dl (0.6-1.2) H 08/30/18 23:41 Est Cr Clr Drug Dosing 34.6 ml/min 08/30/18 23:41 Est GFR ( Amer) 42.5 08/30/18 23:41 Est GFR (Non-Af Amer) 36.7 08/30/18 23:41 BUN/Creatinine Ratio 19.9 (10-20) 08/30/18 23:41 Glucose 116 mg/dl (70-99) H 08/30/18 23:41 Calcium 8.1 mg/dl (8.5-10.1) L 08/30/18 23:41 Magnesium 2.4 mg/dl (1.8-2.4) 08/30/18 23:41 Total Bilirubin 0.4 mg/dl (0.2-1) 08/30/18 23:41 Direct Bilirubin < 0.1 mg/dl (0-0.2) 08/30/18 23:41 AST 22 U/L (15-37) 08/30/18 23:41 ALT 19 U/L (12-78) 08/30/18 23:41 Alkaline Phosphatase 99 U/L (45-117) 08/30/18 23:41 Total Protein 6.2 gm/dl (6.4-8.2) L 08/30/18 23:41 Albumin 3.1 gm/dl (3.4-5.0) L 08/30/18 23:41 Blood Type B Negative 08/13/18 15:19 Antibody Screen NEGATIVE 08/13/18 15:19
[2018-08-31] MEDS ORDERED: NO NSAIDS SCH (01:00)
[2018-08-31] MEDS: METOPROLOL SUCC 50MG EXT REL TAB PO SCH (01:54)
[2018-08-31 02:37] LABS: Appearance Urine Clear (Clear); Bacteria Urine Automated Negative (Negative); Bilirubin Urine Negative (Negative); Blood Urine Negative (Negative); Color Urine Yellow; Glucose Urine UA Negative (Negative); Ketones Urine Negative (Negative); Leukocyte Esterase Urine 1+ (Negative); Nitrite Urine Negative (Negative); Protein Urine Negative (Negative); RBC Urine Automated 0-4 /hpf (0-4); Specific Gravity Urine 1.016 (1.000-1.030); Urobilinogen Urine Negative (Negative)
[2018-08-31] MEDS: CEFAZOLIN 1000MG 1,000 MG/7.5 ML SYR IV SCH (05:10)
[2018-08-31] MEDS ORDERED: AMLODIPINE BESYLATE 5 MG TAB PO SCH (05:30)
[2018-08-31] MEDS: LEVOTHYROXINE SODIUM 50 MCG TABLET PO SCH (06:14)
[2018-08-31] MEDS: ACETAMINOPHEN 500 MG TAB PO SCH ×3 (06:14→21:46)
[2018-08-31] MEDS: NIFEdipine EXTENDED REL 30 MG TABCR PO SCH (07:04)
[2018-08-31 07:13] LABS: Hemoglobin 9.9 g/dL (12.0-16.0); Mean Corpuscular Hgb Conc 31.9 g/dL (32-36); Mean Corpuscular Volume 89.9 fL (80-100); Mean Platelet Volume 9.1 fL (7.4-10.4); Platelet Count 255 K/uL (130-400); RDW Coefficient of Variation 14.3 % (11.5-14.5); RDW Standard Deviation 46.5 fL (36.4-46.3); Red Blood Count 3.45 M/uL (4.2-5.4); White Blood Count 11.21 K/uL (4.8-10.8)
[2018-08-31 07:45] LABS: BUN Creatinine Ratio 19.5 (10-20); Calcium 8.1 mg/dl (8.5-10.1); Creatinine Clr Calc Pharmacy 39.4 ml/min; Est GFR (African American) 49.7; Est GFR (Non-African American) 42.9; Potassium 3.7 mmol/L (3.5-5.1)
--- NOTE | 2018-08-31 07:54 | Orthopedic Progress Note ---
Date of Service August 31, 2018 Assessment & Plan (1) Status post left knee replacement: Overall she is doing well with her left knee. She will be seen by physical therapy this morning for ambulation. We will continue aspirin for DVT prophylaxis. The hospitalist is continuing to work to get her blood pressure under control. She had hypertension before the procedure and it seems to be elevated even more so postoperatively. I plan to discharge her to home tomorrow as long as her blood pressure is under control. Present on Admission?: Yes Subjective Jossy was seen and examined at bedside this morning. Overall she is doing very well with her left knee. She is not having much pain. She is been up and ambulating around the room. Unfortunately she is having difficulties with her blood pressure. She is always been a little hypertensive and takes multiple antihypertensive medications. She was seen in consultation by the hospitalist yesterday. They did change her antihypertensive medication some but unfortunately she still having difficulty controlling her blood pressure. She was able to get some sleep last night and has no other complaints. Physical Exam Musculoskeletal: On physical examination of the left knee, the dressing is clean and dry. She has active dorsiflexion plantarflexion of her left ankle. S ensations intact throughout. Results & Data Vital Signs (Past 12 Hours) Vital Signs Temp Pulse Pulse Resp BP BP Pulse Ox 08/31/18 07:45 36.6 C 73 18 192/95 H 99 08/31/18 06:59 75 182/77 H 08/31/18 03:20 36.6 C 76 18 178/92 H 97 08/31/18 01:53 74 179/78 H 08/30/18 23:20 76 173/80 H 08/30/18 22:55 36.5 C 79 16 182/88 H 191/95 H 96 08/30/18 22:18 176/87 H 08/30/18 21:00 67 164/86 H 08/30/18 20:58 163/74 H Laboratory Results H & H 08/13/18 08/30/18 08/31/18 Range/Units 15:19 23:41 07:03 Hgb 11.0 L 10.2 L 9.9 L (12.0-16.0) g/dL Hct 34.8 L 31.5 L 31.0 L (37-47) % Coagulation 08/13/18 Range/Units 15:19 INR 1.0 (0.9-1.1) Diagnostic Findings Postoperative x-rays of the left knee show the prosthesis to be in anatomic alignment without any evidence of fracture, dislocation, or loosening.
--- NOTE | 2018-08-31 07:56 | XRay Report ---
XR chest 1V portable CLINICAL HISTORY: Shortness of breath. COMPARISON STUDY: Chest radiograph August 13, 2018. FINDINGS: Lung volumes are at the lower limits of normal. Minimal left basilar opacity suggests atele ctasis. There is no pneumothorax. There is old right AC joint fracture/dislocation. Old right rib fra ctures are noted. Cardiomediastinal silhouette is unremarkable. IMPRESSION: Low lung volumes with left basilar atelectasis. No acute cardiopulmonary findings. Electronically signed by: Shivam Ward M.D. 08/31/2018 7:55 AM
[2018-08-31] MEDS: POTASSIUM CHLORIDE 20 MEQ TABCR PO SCH (08:50)
[2018-08-31] MEDS: PANTOprazole 40 MG TAB PO SCH (08:50)
[2018-08-31] MEDS: RIVAROXABAN 10 MG TABLET PO SCH (08:50)
[2018-08-31] MEDS: MULTIVITAMIN TAB PO SCH (08:50)
[2018-08-31] MEDS: LEFLUNOMIDE 10 MG TAB PO SCH (08:51)
[2018-08-31] MEDS: DOCUSATE SODIUM 100 MG CAP PO SCH ×3 (08:51→20:03)
[2018-08-31] MEDS: OXYCODONE HCL IR 5 MG TAB (IMMEDIATE RELEASE) PO PRN ×2 (08:56→20:04)
[2018-08-31] MEDS ORDERED: METOPROLOL SUCC 50MG EXT REL TAB PO SCH (09:00)
[2018-08-31] MEDS ORDERED: BRIMONIDINE TARTRATE 0.2% 5ML OP SCH (09:00)
[2018-08-31] MEDS ORDERED: NON-FORMULARY MEDICATION (Levothyroxine 50 MCG) PO SCH (09:00)
[2018-08-31] MEDS ORDERED: NIFEdipine EXTENDED REL 30 MG TABCR PO SCH (09:00)
[2018-08-31] MEDS ORDERED: VALSARTAN 80 MG TAB PO SCH ×2 (13:00→18:00)
[2018-08-31] MEDS ORDERED: NIFEdipine EXTENDED REL 30 MG TABCR PO ONE (13:30)
--- NOTE | 2018-08-31 13:57 | Hospitalist Progress Note ---
Date of Service August 31, 2018 Assessment & Plan (1) Status post left knee replacement: This is a 77yo F with a PMH of rheumatoid arthritis, hypertension, hypothyroidism, history of glaucoma and mood disorder who is POD#0 s/p L knee replacement by Dr. Dickens. post op day 1 management of BP noted below (2) HTN (hypertension): - Amlodipine given this AM pain level is better today BP improving -Continue home regimen with 100 mg metoprolol succinate and nicardipine 60 mg in the morning as well as valsartan 80 mg in the evening - if needed, may give additional Procardia 30mg po will continue to monitor BP CKD 3 - crea at baseline monitor (3) Rheumatoid arthritis: Continue Plaquenil and Arava (4) Anxiety: Continue Cymbalta (5) Glaucoma: Continue Alphagan, Combigan, Rhopressa and Travatan drops (6) Restless leg syndrome: Continue Requip Thank you for this consultation. We will follow the patient with you during their hospital stay. You can reach a member of the [facility] Hospitalist Team 02/10 via pager @ [phone]. Subjective ff up for s/p R knee surgery, HTN seen resting in bed, comfortable not in distress states pain is well controlled was having pain overnight, BP increased denies chest pain, dyspnea, headache, nausea/vomiting no other symptoms Review of Systems Review of Systems: All systems reviewed & are unremarkable except as noted in HPI & below Physical Exam Physical Exam: General- oriented x 3, not in distress, speaks in sentences with no effort or accessory muscle use Eyes- anicteric Neck- no JVD Lungs- clear breath sounds bilaterally Heart- normal rate, regular rhythm; no murmurs Abdomen- normal bowel sounds, nondistended, soft, nontender Extremities- no pretibial edema, no calf tenderness Right knee- (+) heavy dressing in place Neuro- alert, oriented x 3; no gross focal neurologic deficits Skin- warm & dry Results & Data Vital Signs (Past 12 Hours) Vital Signs Temp Pulse Pulse Resp BP BP Pulse Ox 08/31/18 13:35 36.7 C 71 18 128/73 97 08/31/18 12:54 71 146/80 H 08/31/18 09:32 140/80 08/31/18 08:46 178/84 H 174/82 H 08/31/18 07:45 36.6 C 73 18 192/95 H 99 08/31/18 06:59 75 182/77 H 08/31/18 03:20 36.6 C 76 18 178/92 H 97 08/31/18 01:53 74 179/78 H Laboratory Results Laboratory Results - last 24 hr 08/30/18 08/30/18 08/30/18 16:17 23:41 23:41 WBC 9.87 RBC 3.54 L Hgb 10.2 L Hct 31.5 L MCV 89.0 MCH 28.8 MCHC 32.4 RDW Std Deviation 46.7 H RDW Coeff of Mario 14.2 Plt Count 242 MPV 8.8 Immature Gran % (Auto) 0.2 Neut % (Auto) 82.1 Lymph % (Auto) 8.8 [place] % (Auto) 8.1 Eos % (Auto) 0.5 Baso % (Auto) 0.3 Immature Gran # (Auto) 0.02 Neut # (Auto) 8.10 H Lymph # (Auto) 0.87 L [place] # (Auto) 0.80 H Eos # (Auto) 0.05 Baso # (Auto) 0.03 APTT 23.8 PTT Ratio 0.9 Sodium Potassium Chloride Carbon Dioxide Anion Gap BUN Creatinine Est Cr Clr Drug Dosing Est GFR ( Amer) Est GFR (Non-Af Amer) BUN/Creatinine Ratio Glucose Calcium Magnesium Total Bilirubin 0.4 Direct Bilirubin 0.1 AST 21 ALT 18 Alkaline Phosphatase 95 Total Protein 6.2 L Albumin 3.2 L Urine Color Urine Appearance Urine pH Ur Specific Zullinger Urine Protein Urine Glucose (UA) Urine Ketones Urine Blood Urine Nitrite Urine Bilirubin Urine Urobilinogen Ur Leukocyte Esterase Urine WBC (Auto) Urine RBC (Auto) U Hyaline Cast (Auto) U Epithel Cells (Auto) Urine Bacteria (Auto) 08/30/18 08/31/18 08/31/18 23:41 02:15 07:03 WBC 11.21 H RBC 3.45 L Hgb 9.9 L Hct 31.0 L MCV 89.9 MCH 28.7 MCHC 31.9 L RDW Std Deviation 46.5 H RDW Coeff of Mario 14.3 Plt Count 255 MPV 9.1 Immature Gran % (Auto) Neut % (Auto) Lymph % (Auto) [place] % (Auto) Eos % (Auto) Baso % (Auto) Immature Gran # (Auto) Neut # (Auto) Lymph # (Auto) [place] # (Auto) Eos # (Auto) Baso # (Auto) APTT PTT Ratio Sodium 143 Potassium 3.9 Chloride 112 H Carbon Dioxide 22 Anion Gap 9.0 BUN 28 H Creatinine 1.40 H Est Cr Clr Drug Dosing 34.6 Est GFR ( Amer) 42.5 Est GFR (Non-Af Amer) 36.7 BUN/Creatinine Ratio 19.9 Glucose 116 H Calcium 8.1 L Magnesium 2.4 Total Bilirubin 0.4 Direct Bilirubin < 0.1 AST 22 ALT 19 Alkaline Phosphatase 99 Total Protein 6.2 L Albumin 3.1 L Urine Color Yellow Urine Appearance Clear Urine pH 6.0 Ur Specific Zullinger 1.016 Urine Protein Negative Urine Glucose (UA) Negative Urine Ketones Negative Urine Blood Negative Urine Nitrite Negative Urine Bilirubin Negative Urine Urobilinogen Negative Ur Leukocyte Esterase 1+ H Urine WBC (Auto) 1-5 Urine RBC (Auto) 0-4 U Hyaline Cast (Auto) 1-5 U Epithel Cells (Auto) 5-10 H Urine Bacteria (Auto) Negative 08/31/18 07:03 WBC RBC Hgb Hct MCV MCH MCHC RDW Std Deviation RDW Coeff of Mario Plt Count MPV Immature Gran % (Auto) Neut % (Auto) Lymph % (Auto) [place] % (Auto) Eos % (Auto) Baso % (Auto) Immature Gran # (Auto) Neut # (Auto) Lymph # (Auto) [place] # (Auto) Eos # (Auto) Baso # (Auto) APTT PTT Ratio Sodium 140 Potassium 3.7 Chloride 110 H Carbon Dioxide 23 Anion Gap 7.0 BUN 24 H Creatinine 1.23 H Est Cr Clr Drug Dosing 39.4 Est GFR ( Amer) 49.7 Est GFR (Non-Af Amer) 42.9 BUN/Creatinine Ratio 19.5 Glucose 143 H Calcium 8.1 L Magnesium Total Bilirubin Direct Bilirubin AST ALT Alkaline Phosphatase Total Protein Albumin Urine Color Urine Appearance Urine pH Ur Specific Zullinger Urine Protein Urine Glucose (UA) Urine Ketones Urine Blood Urine Nitrite Urine Bilirubin Urine Urobilinogen Ur Leukocyte Esterase Urine WBC (Auto) Urine RBC (Auto) U Hyaline Cast (Auto) U Epithel Cells (Auto) Urine Bacteria (Auto)
[2018-08-31] MEDS ORDERED: BRIMONIDINE TARTRATE 0.2% 5ML OPR SCH (14:00)
--- NOTE | 2018-08-31 17:07 | Anesthesiology Progress Note ---
Date of Service August 31, 2018 Anesthesia Post Procedure Vital Signs Vital Signs: Temp Pulse Pulse Resp BP BP Pulse Ox 08/31/18 15:31 36.9 C 71 18 132/73 100 08/31/18 13:35 36.7 C 71 18 128/73 97 08/31/18 12:54 71 146/80 H 08/31/18 09:32 140/80 08/31/18 08:46 178/84 H 174/82 H 08/31/18 07:45 36.6 C 73 18 192/95 H 99 08/31/18 06:59 75 182/77 H 08/31/18 03:20 36.6 C 76 18 178/92 H 97 08/31/18 01:53 74 179/78 H 08/30/18 23:20 76 173/80 H 08/30/18 22:55 36.5 C 79 16 182/88 H 191/95 H 96 08/30/18 22:18 176/87 H 08/30/18 21:00 67 164/86 H 08/30/18 20:58 163/74 H 08/30/18 17:50 36.6 C 70 16 176/83 H 99 Pain Intensity Left Knee: Pain Intensity: 5 Transfer of Care Handoff Completed per policy Notes Mental Status: alert / awake / arousable Patient Amnestic to Procedure: Yes Nausea / Vomiting: adequately controlled Pain: adequately controlled Airway Patency, RR, SpO2: stable & adequate BP & HR: stable & adequate Hydration State: stable & adequate Neuraxial Anesthesia: was administered and sensory block resolved Anesthetic Complications: no major complications apparent and Pt Satisfied with anesthetic care
[2018-08-31] MEDS: SENNA 8.6 MG TAB PO SCH (20:03)
[2018-08-31] MEDS: TRAVOPROST Z 0.004% OPH SOLN 2.5 ML BTL OPB SCH (20:04)
[2018-08-31] MEDS: DULOXETINE HCL 60 MG CAP PO SCH (20:06)
[2018-08-31] MEDS: HYDROXYCHLOROQUINE SULFATE 200 MG TAB PO SCH (20:06)
[2018-08-31] MEDS: ROPINIROLE HCL 0.25 MG TABLET PO SCH (20:07)
[2018-08-31] MEDS: GABAPENTIN 300 MG CAP PO SCH (20:07)
[2018-09-01] MEDS: LEVOTHYROXINE SODIUM 50 MCG TABLET PO SCH (05:53)
[2018-09-01] MEDS: ACETAMINOPHEN 500 MG TAB PO SCH (05:53)
[2018-09-01] MEDS: OXYCODONE HCL IR 5 MG TAB (IMMEDIATE RELEASE) PO PRN ×2 (06:03→10:52)
--- NOTE | 2018-09-01 07:31 | Orthopedic Progress Note ---
Date of Service September 01, 2018 Assessment & Plan (1) Status post left knee replacement: Overall she is doing very well. She is not having too much pain in the left knee. Her blood pressure is better controlled. She is on Xarelto for DVT prophylaxis because of an aspirin allergy. She will be seen by physical therapy today for ambulation and range of motion. She can be discharged home later this morning after physical therapy and after seen by the hospitalist. She will follow-up with orthopedics in 2 weeks. Present on Admission?: Yes Subjective Jossy was seen and examined at bedside this morning. Overall she is doing fairly well. She not having too much pain in the knee. She was able to ambulate yesterday with physical therapy. She does have a lot of anxiety. Her blood pressures better controlled. She has no new complaints. Physical Exam Musculoskeletal: On physical examination of the left knee, the dressing has been changed. She is lying with her leg in full extension. She is active dorsiflexion and plantarflexion of her left ankle. Results & Data Vital Signs (Past 12 Hours) Vital Signs Temp Pulse Pulse Pulse Resp BP Pulse Ox 09/01/18 07:21 36.9 C 85 84 71 16 132/74 95 09/01/18 07:09 85 132/74 09/01/18 05:57 36.9 C 84 16 171/83 H 95 08/31/18 23:35 36.9 C 85 18 180/85 H 100
--- NOTE | 2018-09-01 07:33 | Discharge Summary ---
Date of Service September 01, 2018 Admission HPI Per Admitting Provider Jossy is a pleasant 77-year-old female who initially presented to my office with bilateral knee pain. X-rays and clinical examination were diagnostic for advanced rheumatoid arthritis of both knees. I did a right total knee arthroplasty on her in November 2007 and she did very well with that. Unfortunately she is now having a lot of left knee pain. After failing conservative treatment, she has elected proceed with a left total knee arthroplasty. Specialty Data Orthopedic H & H 08/13/18 08/30/18 08/31/18 Range/Units 15:19 23:41 07:03 Hgb 11.0 L 10.2 L 9.9 L (12.0-16.0) g/dL Hct 34.8 L 31.5 L 31.0 L (37-47) % Coagulation 08/13/18 Range/Units 15:19 INR 1.0 (0.9-1.1) Discharge Data Consultations 08/30/18 15:53 Consult Case Management - Discharge Planning Routine 08/30/18 17:40 Consult Hospitalist Routine Procedures Performed Operation Date: 08/30/18 13:50 Actual Procedures p Left Total Knee Replacement(Left) - [place] Dickens, Hospital Course (1) Status post left knee replacement: On August 30, 2018 Jossy arrived at [facility] and underwent a left total knee arthroplasty without complication. She had a spinal anesthetic. Postoperatively she was started on Xarelto for DVT prophylaxis and discharged to general orthopedic floors. Her hospital course was uneventful. On postop day #1 her H&H was stable and her pain was well controlled. She was able to ambulate fairly well with physical therapy. She was having some issues with her blood pressure so the hospitalist was consulted. Her blood pressures were better controlled on postop day #1. On postop day #2 she continued to improve. The dressing was changed. She was seen once again by physical therapy and was able to ambulate. After being seen once again by the hospitalist she was discharged home. She will get energy physical therapy at home. She will follow-up with orthopedics in 2 weeks. Discharge Instructions Home Medications Medication Instructions Recorded Confirmed Octavio 1 drp OPB BID 11/07/17 08/12/18 Lashell Umanzor 1 drp OPB HS 11/07/17 08/30/18 cyanocobalamin (vitamin B-12) 1,000 mcg PO HS 11/07/17 08/12/18 [Vitamin B-12] gabapentin 600 mg PO BID 11/07/17 08/30/18 hydroxychloroquine [Plaquenil] 200 mg PO HS 11/07/17 08/12/18 leflunomide [Arava] 20 mg PO QAM 11/07/17 08/12/18 magnesium 500 mg PO HS 11/07/17 08/12/18 nifedipine [Procardia XL] 60 mg PO QAM 11/07/17 08/12/18 pantoprazole [Protonix] 40 mg PO QAM 11/07/17 08/12/18 potassium chloride 20 meq PO QAM 11/07/17 08/12/18 ropinirole 0.5 mg PO HS 11/07/17 08/12/18 valsartan 80 mg PO QPM 11/07/17 08/12/18 Rhropressa 1 dose UD 08/12/18 08/12/18 brimonidine 1 drp OPHTHALMIC (EYE) DAILY 08/12/18 08/12/18 duloxetine [Cymbalta] 60 mg PO HS 08/12/18 08/12/18 metoprolol succinate 100 mg PO QAM 08/12/18 08/12/18 levothyroxine 50 mcg PO DAILY 08/30/18 08/30/18 Previous Rx's Medication Instructions Recorded oxycodone 5 - 10 mg PO Q4H PRN #40 tab 09/01/18 rivaroxaban [Xarelto] 10 mg PO DAILY #8 tab 09/01/18
[2018-09-01] MEDS: METOPROLOL SUCC 50MG EXT REL TAB PO SCH (08:11)
[2018-09-01] MEDS: MULTIVITAMIN TAB PO SCH (08:11)
[2018-09-01] MEDS: POTASSIUM CHLORIDE 20 MEQ TABCR PO SCH (08:12)
[2018-09-01] MEDS: NIFEdipine EXTENDED REL 30 MG TABCR PO SCH (08:13)
[2018-09-01] MEDS: DOCUSATE SODIUM 100 MG CAP PO SCH (08:13)
[2018-09-01] MEDS: RIVAROXABAN 10 MG TABLET PO SCH (08:13)
[2018-09-01] MEDS: LEFLUNOMIDE 10 MG TAB PO SCH (08:14)
[2018-09-01] MEDS: PANTOprazole 40 MG TAB PO SCH (08:14)
== END 2018-09-01 12:20 | disposition home health service (06) | DRG 470 ==
LOC: ASU 11:50 → 3E 15:16

== ENCOUNTER 2020-11-18 10:41 | Observation (INO) ==
[2020-11-18 11:32] LABS: Basophils # (auto) 0.04 K/uL (0-0.2); Basophils % (auto) 0.5 %; Eosinophils # (auto) 0.21 K/uL (0-0.5); Eosinophils % (auto) 2.4 %; Hematocrit (blood only) 34.9 % (37-47); Hemoglobin 10.9 g/dL (12.0-16.0); Immature Granulocytes # (auto) 0.04 K/uL (0.00-0.02); Immature Granulocytes % (auto) 0.5 %; Lymphocytes # (auto) 1.44 K/uL (1.2-3.4); Lymphocytes % (auto) 16.7 %; Mean Corpuscular Hemoglobin 30.6 pg (25-34); Mean Corpuscular Hgb Conc 31.2 g/dL (32-36); Monocytes # (auto) 0.45 K/uL (0.11-0.59); Monocytes % (auto) 5.2 %; Neutrophils # (auto) 6.46 K/uL (1.4-6.5); Neutrophils % (auto) 74.7 %; Platelet Count 334 K/uL (130-400); RDW Coefficient of Variation 14.4 % (11.5-14.5); RDW Standard Deviation 51.4 fL (36.4-46.3); Red Blood Count 3.56 M/uL (4.2-5.4); White Blood Count 8.64 K/uL (4.8-10.8)
--- NOTE | 2020-11-18 11:34 | XRay Report ---
XR chest 1V portable HISTORY: Shortness of breath. COMPARISON: Chest 08/30/2018. FINDINGS: Mild elevation of the right hemidiaphragm, unchanged. There are low lung volumes. The heart is top normal in size. No pleural effusions. No pneumothorax. The lungs are clear. No evidence for p ulmonary edema. IMPRESSION: No significant change compared to the prior study. No acute process. ACT 112: Negative or not required by law. Electronically signed by: Guzman Sparks M.D. 11/18/2020 11:32 AM
[2020-11-18 11:43] LABS: Partial Thromboplastin Ratio 0.9; Partial Thromboplastin Time 22.6 Seconds (21.0-31.0)
[2020-11-18 11:51] LABS: Alanine Aminotransferase 26 U/L (12-78); Albumin Level 3.7 gm/dl (3.4-5.0); Aspartate Aminotransferase 21 U/L (15-37); BUN Creatinine Ratio 13.1 (10-20); Blood Urea Nitrogen 27 mg/dl (7-18); Calcium 9.4 mg/dl (8.5-10.1); Carbon Dioxide 25 mmol/L (21-32); Chloride 108 mmol/L (98-107); Creatinine Clr Calc Pharmacy 24.5 ml/min; Est GFR (African American) 26.9 ml/min; Est GFR (Non-African American) 23.2 ml/min; Glucose 120 mg/dl (70-99); Potassium 4.3 mmol/L (3.5-5.1); Sodium 140 mmol/L (136-145)
[2020-11-18] MEDS ORDERED: LACTATED RINGER'S 500 ML IV ONE (11:57)
[2020-11-18 12:01] LABS: Albumin Globulin Ratio 1.1 (0.9-2); Alkaline Phosphatase 98 U/L (45-117); Bilirubin,Total 0.7 mg/dl (0.2-1); Globulin 3.5 gm/dl (2.5-4.0); Thyroid Stimulating Hormone 0.811 uIu/ml (0.300-4.500); Total Protein 7.2 gm/dl (6.4-8.2); Troponin I < 0.015 ng/ml (0-0.045)
[2020-11-18 12:23] LABS: Lyme Ab IgG w/WB Rflx Negative (Negative); Lyme Ab IgM w/WB Rflx Negative (Negative)
--- NOTE | 2020-11-18 12:33 | Emergency Department Note ---
Impression & Plan Fatigue, HTN (hypertension), Weakness ED Provider Note Provider: Steven Lai MD DATE OF SERVICE: 11/18/2020 CHIEF COMPLAINT: Weakness, shortness of breath HISTORY OF PRESENT ILLNESS: Patient is a 79-year-old female history of thyroid dysfunction, hypertension, arthritis currently maintained on chronic prednisone presenting here today reporting the past 2 to 3 months decrease in her gener alized energy level. States has been working with her advertising agent regarding some back and sciatica pain. As referral for PT for this has been helpful in the past. Patient states that she gets moving around she feels very weak and has no energy to get up and do anything. Reports at times she feels short of breath with this but not at rest. Denies chest pain or abdominal pain. No falls or syncope reported. Reports that she has been gaining little bit of weight even though she been trying to diet. Reports that her doctor does not have appointments for several months and came here today for evaluation. Reports compliance with her home medications but has not been taking any as needed tizanidine or diazepam of these have not been helpful. She feels like she needs something to help make her more awake and alert and energetic. REVIEW OF SYSTEMS: A total of 10 review of systems was obtained and negative except as stated above in the HPI. PAST MEDICAL HISTORY: As noted above MEDICATIONS:reviewed home medications SOCIAL HISTORY: Lives at home by herself PHYSICAL EXAM: GENERAL: alert and oriented in no acute distress on stretcher Head: normocephalic and atraumatic EYES: No injection, discharge or icterus. PERRL NECK: Trachea midline. Supple. ENT: Mucous membranes pink and moist. Pharynx without erythema or exudate. LUNGS: Airway patent. No retractions. Breath sounds clear with good air entry bilaterally. HEART: Regular rate and rhythm. No chest wall tenderness ABDOMEN: Soft and non-tender, without guarding or rebound. SKIN: Acyanotic, warm, dry, without rashes EXTREMITIES: Without swelling, tenderness or deformity NEUROLOGICAL: No focal deficits. No aphasia. No facial droop or slurred speech. Ambulatory. EK bpm normal sinus rhythm. No PVC or PAC. No acute ST segment elevation or depression. QTC 420. CONTINUOUS CARDIAC MONITORING: was ordered and showed a heart rate of 60s to 70s bpm in normal sinus rhythm Patient's laboratory studies and imaging reviewed. Differential includes Infection, dehydration, metabolic abnormality, hypo/hyperglycemia, electrolyte disturbance, anemia, hypoxia, cardiac sources, intracerebral event, toxicologic, neurologic, as well as other pathologies. IMPRESSION/MEDICAL DECISION MAKING: Patient presents with generalized decline and some slight shortness of breath worsened over the past several months. Patient primarily describes a decrease in energy level and fatigue. Difficulties establishing close follow-up with PCP due to scheduling issues. Denies significant focal pain. Chronic arthritic type pain is reported particularly with sciatica. Follows closely with rheumatology and is on chronic steroids. Is to start physical therapy at home shortly which will likely be beneficial for this. Not significant hypoxic or tachycardic here. Chest x-ray without acute findings per radiology. No fevers reported lower suspicion for infectious etiology specially given the chronicity. Did check for occult findings such as anaplasmosis or Lyme but testing here was negative. No significant leukocytosis. Stable slight anemia. Slightly worsened renal dysfunction with creatinine of 2 with a baseline recently around 1.6. Given some IV fluid hydration. Troponin is undetectable. Doubt acute ACS . Doubt this is an anginal equivalent given her description of her generalized weakness/fatigue and shortness of breath which sounds minimal. No evidence of severe electrolyte abnormality or hepatic dysfunction. TSH within normal limits. Covid was checked to exclude and was also negative. Did order a B12 level but do not see an emergent condition causing her generalized weakness for the past several months. Again I doubt acute PE given the chronicity and her lack of hypoxia at this point or significant tachycardia. Patient does not complain of any shortness of breath at this time. Do not feel there is enough focal deficits that this represents a more central neurological cause. Discussed with her the findings. Discussed the options of observation versus follow-up in the outpatient setting given the chronicity of her complaints. Patient states he does use support at home and does not feel like she would fall but is very fatigued and does not feel that she can go home. She wants an answer to why she is feeling this way. Discussed with her I am unable to provide her an answer at this time but she may continue work-up in the outpatient setting or if she stays for observation here. Discussed the risks and benefits of both at length with her and her friend at bedside. Discussed I cannot guarantee that we will solve the problem if she stays for observation however. Blood pressure is significantly elevated initially and improved some here without significant intervention. She wished for further observation and as such the hospitalist was contacted. DIAGNOSIS: Fatigue, weakness, hypertension DISPOSITION: Discharge Patient was agreeable with this plan. Discussed return precautions and advised follow up. Past Med/Surg History Medical History (Updated 11/18/20 @ 16:32 by Steven Lai M.D.) Anxiety Depression Glaucoma High cholesterol Hypertension Admitted [facility] 03/2017 for labile HTN/HTNsive urgency, d/c'd on Metoprolol Lumbar radiculopathy Neuropathy FEET Osteoarthritis Restless leg syndrome Rheumatoid arthritis FOLLOWS DR. TREVINO Surgical History History of carpal tunnel release RIGHT HAND History of total bilateral knee replacement (TKR) Hx laparoscopic cholecystectomy Hx of arthroscopy RIGHT KNEE (MENISCUS) Hx of hysterectomy Hx of tonsillectomy Family History Mother Family history of reaction to anesthesia SLOW TO AWAKEN Social History Smoking Status: Never smoker Hx Alcohol Use: Yes Hx Substance Use: No Preferred Language: [place] Communication Ability: Effective Visual Impairment: No [employer] Pilot Required: No Beliefs That Will Affect Care: None Current Living Situation: Alone Feels Safe at Home: Yes Assistive Devices: Glasses and Walker Allergies Allergies Allergy/AdvReac Type Severity Reaction Status Date / Time aspirin Allergy Severe ANAPHYLAXIS Verified 11/18/20 11:47 duloxetine [From Cymbalta] Allergy Rash Verified 11/18/20 11:47 Home Meds Home Medications Medication Instructions Recorded Confirmed brimonidine 0.2 %-timolol 0.5 % 1 drp OPB DAILY 11/07/17 11/18/20 eye drops (Combigan) cyanocobalamin (vitamin B-12) 1,000 mcg PO HS 11/07/17 11/18/20 1,000 mcg tablet (Vitamin B-12) magnesium 250 mg tablet 500 mg PO HS 11/07/17 11/18/20 nifedipine 60 mg tablet,extended 60 mg PO QAM 11/07/17 11/18/20 release 24 hr (Procardia XL) potassium chloride 20 mEq 20 meq PO QAM 11/07/17 11/18/20 tablet,extended release travoprost 0.004 % eye drops 1 drp OPB HS 11/07/17 11/18/20 (Travatan Z) metoprolol succinate 100 mg 100 mg PO QAM 08/12/18 11/18/20 tablet,extended release 24 hr irbesartan 150 mg tablet (Avapro) 150 mg PO HS 07/29/19 11/18/20 prednisone 5 mg tablet 5 mg PO DAILY 07/29/19 11/18/20 [id number] 1 tab PO Q4H PRN 11/18/20 11/18/20 50 mg-325 mg-40 mg tablet cholecalciferol (vitamin D3) 50 50 mcg PO DAILY 11/18/20 11/18/20 mcg (2,000 unit) tablet (Vitamin D3) dextromethorphan-guaifenesin 10 1 tab-cap PO Q8H PRN 11/18/20 11/18/20 mg-200 mg capsule (Coricidin HBP Chest Congestion-Cough) gabapentin 300 mg capsule 300 mg PO BID 11/18/20 11/18/20 levothyroxine 75 mcg tablet 75 mcg PO DAILYBB 11/18/20 11/18/20 lorazepam 0.5 mg tablet 0.5 mg PO DAILY PRN 11/18/20 11/18/20 pantoprazole 40 mg tablet,delayed 40 mg PO DAILY 11/18/20 11/18/20 release tizanidine 2 mg tablet 2 mg PO DAILY PRN 11/18/20 11/18/20 Results & Data (ED) Vital Signs Vital Signs - 24 hr 11/18/20 10:44 11/18/20 11:04 11/18/20 11:10 Temperature 36.4 C L Temperature Source Temporal Artery Scan Pulse Rate 76 76 73 Pulse Rate from SpO2 Sensor Pulse Rhythm Regular Regular Pulse Strength Normal Respiratory Rate 20 20 15 Respiratory Effort / Characteristics Non-Labored Spontaneous Respiratory Depth Normal Respiratory Pattern Regular Blood Pressure 189/92 H 209/93 H Blood Pressure Mean 124 131 Blood Pressure Position Sitting Pulse Oximetry 99 96 Oxygen Delivery Method Room Air Room Air Sepsis Recent Fever Within 48 Hours No Sepsis New/Unexplained Change in Mental Status No Sepsis Action Taken by Nursing No Action Required 11/18/20 11:30 11/18/20 12:00 11/18/20 12:30 Temperature Temperature Source Pulse Rate 74 70 70 Pulse Rate from SpO2 Sensor 74 70 70 Pulse Rhythm Pulse Strength Respiratory Rate 17 23 15 Respiratory Effort / Characteristics Respiratory Depth Respiratory Pattern Blood Pressure 209/91 H 185/96 H 158/96 H Blood Pressure Mean 130 125 116 Blood Pressure Position Pulse Oximetry 98 99 98 Oxygen Delivery Method Room Air Room Air Room Air Sepsis Recent Fever Within 48 Hours Sepsis New/Unexplained Change in Mental Status Sepsis Action Taken by Nursing 11/18/20 13:00 11/18/20 13:20 11/18/20 13:30 Temperature Temperature Source Pulse Rate 71 74 Pulse Rate from SpO2 Sensor 72 75 Pulse Rhythm Pulse Strength Respiratory Rate 15 20 14 Respiratory Effort / Characteristics Non-Labored Respiratory Depth Respiratory Pattern Blood Pressure 140/77 144/71 H Blood Pressure Mean 98 95 Blood Pressure Position Pulse Oximetry 100 100 100 Oxygen Delivery Method Room Air Room Air Room Air Sepsis Recent Fever Within 48 Hours Sepsis New/Unexplained Change in Mental Status Sepsis Action Taken by Nursing 11/18/20 14:00 11/18/20 14:30 11/18/20 15:00 Temperature Temperature Source Pulse Rate 76 76 77 Pulse Rate from SpO2 Sensor 76 75 78 Pulse Rhythm Pulse Strength Respiratory Rate 19 13 16 Respiratory Effort / Characteristics Respiratory Depth Respiratory Pattern Blood Pressure 144/73 H 144/72 H 144/77 H Blood Pressure Mean 96 96 99 Blood Pressure Position Pulse Oximetry 100 100 98 Oxygen Delivery Method Room Air Room Air Room Air Sepsis Recent Fever Within 48 Hours Sepsis New/Unexplained Change in Mental Status Sepsis Action Taken by Nursing Laboratory Data Result diagrams: 11/18/20 11:18 11/18/20 11:18 Lab Results 11/18/20 11/18/20 11/18/20 Range/Units 11:18 11:18 11:18 WBC 8.64 (4.8-10.8) K/uL RBC 3.56 L (4.2-5.4) M/uL Hgb 10.9 L (12.0-16.0) g/dL Hct 34.9 L (37-47) % MCV 98.0 (80-100) fL MCH 30.6 (25-34) pg MCHC 31.2 L (32-36) g/dL RDW Std Deviation 51.4 H (36.4-46.3) fL RDW Coeff of Mario 14.4 (11.5-14.5) % Plt Count 334 (130-400) K/uL MPV 9.0 (7.4-10.4) fL Immature Gran % (Auto) 0.5 % Neut % (Auto) 74.7 % Lymph % (Auto) 16.7 % [place] % (Auto) 5.2 % Eos % (Auto) 2.4 % Baso % (Auto) 0.5 % Neut # (Auto) 6.46 (1.4-6.5) K/uL Lymph # (Auto) 1.44 (1.2-3.4) K/uL [place] # (Auto) 0.45 (0.11-0.59) K/uL Eos # (Auto) 0.21 (0-0.5) K/uL Baso # (Auto) 0.04 (0-0.2) K/uL Immature Gran # (Auto) 0.04 H (0.00-0.02) K/uL PT 10.0 (9.0-12.0) Seconds INR 1.0 (0.9-1.1) APTT 22.6 (21.0-31.0) Seconds PTT Ratio 0.9 Sodium 140 (136-145) mmol/L Potassium 4.3 (3.5-5.1) mmol/L Chloride 108 H (98-107) mmol/L Carbon Dioxide 25 (21-32) mmol/L Anion Gap 6.0 (3-11) BUN 27 H (7-18) mg/dl Creatinine 2.02 H (0.6-1.2) mg/dl Est Cr Clr Drug Dosing 24.5 ml/min Est GFR ( Amer) 26.9 ml/min Est GFR (Non-Af Amer) 23.2 ml/min BUN/Creatinine Ratio 13.1 (10-20) Glucose 120 H (70-99) mg/dl Calcium 9.4 (8.5-10.1) mg/dl Magnesium 2.0 (1.8-2.4) mg/dl Total Bilirubin 0.7 (0.2-1) mg/dl AST 21 (15-37) U/L ALT 26 (12-78) U/L Alkaline Phosphatase 98 (45-117) U/L Troponin I < 0.015 (0-0.045) ng/ml Total Protein 7.2 (6.4-8.2) gm/dl Albumin 3.7 (3.4-5.0) gm/dl Globulin 3.5 (2.5-4.0) gm/dl Albumin/Globulin Ratio 1.1 (0.9-2) Vitamin B12 (193-986) pg/ml TSH 0.811 (0.300-4.500) uIu/ml Anaplasma Smear See Comment Lyme Disease IgG Ab (Negative) Lyme Disease IgM Ab (Negative) COVID-19 Eval Order SARS-CoV-2 (PCR) (Negative) 11/18/20 11/18/20 11/18/20 Range/Units 11:18 12:02 12:02 WBC (4.8-10.8) K/uL RBC (4.2-5.4) M/uL Hgb (12.0-16.0) g/dL Hct (37-47) % MCV (80-100) fL MCH (25-34) pg MCHC (32-36) g/dL RDW Std Deviation (36.4-46.3) fL RDW Coeff of Mario (11.5-14.5) % Plt Count (130-400) K/uL MPV (7.4-10.4) fL Immature Gran % (Auto) % Neut % (Auto) % Lymph % (Auto) % [place] % (Auto) % Eos % (Auto) % Baso % (Auto) % Neut # (Auto) (1.4-6.5) K/uL Lymph # (Auto) (1.2-3.4) K/uL [place] # (Auto) (0.11-0.59) K/uL Eos # (Auto) (0-0.5) K/uL Baso # (Auto) (0-0.2) K/uL Immature Gran # (Auto) (0.00-0.02) K/uL PT (9.0-12.0) Seconds INR (0.9-1.1) APTT (21.0-31.0) Seconds PTT Ratio Sodium (136-145) mmol/L Potassium (3.5-5.1) mmol/L Chloride (98-107) mmol/L Carbon Dioxide (21-32) mmol/L Anion Gap (3-11) BUN (7-18) mg/dl Creatinine (0.6-1.2) mg/dl Est Cr Clr Drug Dosing ml/min Est GFR ( Amer) ml/min Est GFR (Non-Af Amer) ml/min BUN/Creatinine Ratio (10-20) Glucose (70-99) mg/dl Calcium (8.5-10.1) mg/dl Magnesium (1.8-2.4) mg/dl Total Bilirubin (0.2-1) mg/dl AST (15-37) U/L ALT (12-78) U/L Alkaline Phosphatase (45-117) U/L Troponin I (0-0.045) ng/ml Total Protein (6.4-8.2) gm/dl Albumin (3.4-5.0) gm/dl Globulin (2.5-4.0) gm/dl Albumin/Globulin Ratio (0.9-2) Vitamin B12 (193-986) pg/ml TSH (0.300-4.500) uIu/ml Anaplasma Smear Lyme Disease IgG Ab Negative (Negative) Lyme Disease IgM Ab Negative (Negative) COVID-19 Eval Order Covid19 at [facility] SARS-CoV-2 (PCR) NEGATIVE (Negative) 11/18/20 Range/Units 12:29 WBC (4.8-10.8) K/uL RBC (4.2-5.4) M/uL Hgb (12.0-16.0) g/dL Hct (37-47) % MCV (80-100) fL MCH (25-34) pg MCHC (32-36) g/dL RDW Std Deviation (36.4-46.3) fL RDW Coeff of Mario (11.5-14.5) % Plt Count (130-400) K/uL MPV (7.4-10.4) fL Immature Gran % (Auto) % Neut % (Auto) % Lymph % (Auto) % [place] % (Auto) % Eos % (Auto) % Baso % (Auto) % Neut # (Auto) (1.4-6.5) K/uL Lymph # (Auto) (1.2-3.4) K/uL [place] # (Auto) (0.11-0.59) K/uL Eos # (Auto) (0-0.5) K/uL Baso # (Auto) (0-0.2) K/uL Immature Gran # (Auto) (0.00-0.02) K/uL PT (9.0-12.0) Seconds INR (0.9-1.1) APTT (21.0-31.0) Seconds PTT Ratio Sodium (136-145) mmol/L Potassium (3.5-5.1) mmol/L Chloride (98-107) mmol/L Carbon Dioxide (21-32) mmol/L Anion Gap (3-11) BUN (7-18) mg/dl Creatinine (0.6-1.2) mg/dl Est Cr Clr Drug Dosing ml/min Est GFR ( Amer) ml/min Est GFR (Non-Af Amer) ml/min BUN/Creatinine Ratio (10-20) Glucose (70-99) mg/dl Calcium (8.5-10.1) mg/dl Magnesium (1.8-2.4) mg/dl Total Bilirubin (0.2-1) mg/dl AST (15-37) U/L ALT (12-78) U/L Alkaline Phosphatase (45-117) U/L Troponin I (0-0.045) ng/ml Total Protein (6.4-8.2) gm/dl Albumin (3.4-5.0) gm/dl Globulin (2.5-4.0) gm/dl Albumin/Globulin Ratio (0.9-2) Vitamin B12 1850 H (193-986) pg/ml TSH (0.300-4.500) uIu/ml Anaplasma Smear Lyme Disease IgG Ab (Negative) Lyme Disease IgM Ab (Negative) COVID-19 Eval Order SARS-CoV-2 (PCR) (Negative) Administered Medications Discontinued Medications Lactated Ringer's (Lr) 500 mls @ 999 mls/hr IV .Q31M ONE Stop: 11/18/20 12:27 Last Infusion: 11/18/20 13:50 Dose: 0 mls/hr Documented by: [id number] Admin: 11/18/20 13:19 Dose: 999 mls/hr Documented by: [id number] Imaging Data Radiologist's Impression: Chest X-Ray 11/18/20 10:49 XR chest 1V portable HISTORY: Shortness of breath. COMPARISON: Chest 08/30/2018. FINDINGS: Mild elevation of the right hemidiaphragm, unchanged. There are low lung volumes. The heart is top normal in size. No pleural effusions. No pneumothorax. The lungs are clear. No evidence for pulmonary edema. IMPRESSION: No significant change compared to the prior study. No acute process. ACT 112: Negative or not required by law. Electronically signed by: Guzman Sparks M.D. 11/18/2020 11:32 AM Discharge Plan Visit Data Chief Complaint: Shortness of Breath/Dyspnea Stated Complaint: DIFFICULTY BREATHING, WALKING, FATIGUE ED Provider: Steven Lai Discharge Problem: Fatigue, HTN (hypertension), Weakness Patient Disposition: Being Evaluated by Hospitalist Forms Stand Alone Forms: [facility] Prescriptions Prescriptions: No Action irbesartan [Avapro] 150 mg tablet 150 mg PO HS RF: 0 prednisone 5 mg tablet 5 mg PO DAILY RF: 0 metoprolol succinate 100 mg Tablet Extended Release 24 Hr 100 mg PO QAM RF: 0 cyanocobalamin (vitamin B-12) [Vitamin B-12] 1,000 mcg Tablet 1,000 mcg PO HS RF: 0 travoprost [Travatan Z] 0.004 % Drops 1 drp OPB HS RF: 0 magnesium 250 mg Tablet 500 mg PO HS RF: 0 Combigan 0.2-0.5 % Drops 1 drp OPB DAILY RF: 0 potassium chloride 20 mEq Tablet Extended Release 20 meq PO QAM RF: 0 nifedipine [Procardia XL] 60 mg Tablet Extended Release 24hr 60 mg PO QAM RF: 0 tizanidine 2 mg tablet 2 mg PO DAILY PRN (Reason: Muscle Pain) RF: 0 Coricidin HBP Chest Alfredo-Cough 10-200 mg Capsule 1 tab-cap PO Q8H PRN (Reason: Cold Symptoms) RF: 0 [id number]-uwuwmkpxvtstu-ebgf [Fioricet] 50-325-40 mg Tablet 1 tab PO Q4H PRN (Reason: sinus headache) RF: 0 levothyroxine 75 mcg tablet 75 mcg PO DAILYBB RF: 0 lorazepam 0.5 mg tablet 0.5 mg PO DAILY PRN (Reason: Anxiety) RF: 0 pantoprazole 40 mg tablet,delayed release (DR/EC) 40 mg PO DAILY RF: 0 gabapentin 300 mg capsule 300 mg PO BID RF: 0 cholecalciferol (vitamin D3) [Vitamin D3] 50 mcg (2,000 unit) Tablet 50 mcg PO DAILY RF: 0 Referrals Referrals: Kj Minor MD [Primary Care Provider] -
[2020-11-18] MEDS ORDERED: SODIUM CHLORIDE 0.9% 1000ML 1,000 ML IV SCH (17:31)
[2020-11-18] MEDS ORDERED: ACETAMINOPHEN 325 MG TAB PO PRN (17:31)
[2020-11-18] MEDS ORDERED: LORazepam 0.5 MG TAB PO PRN (17:31)
[2020-11-18] MEDS ORDERED: HYDROCODONE/ACETAMOPHEN 5/325MG TAB PO PRN (17:31)
--- NOTE | 2020-11-18 17:52 | History & Physical Report ---
Date of Service November 18, 2020 Assessment & Plan (1) Weakness: (2) Fatigue: Plan: -admit to [facility] -Patient presenting from home with reports of progressive generalized weakness and fatigue for past 3 months -Noted that patient self stopped prednisone and venlafaxine -likely contributing to patient's symptoms -Gentle IVF hydration -Resume prednisone -Mental health consult for management of depression -PT/OT eval's (3) Acute kidney injury superimposed on CKD: (4) CKD (chronic kidney disease), stage III: Plan: -Creatinine 2.0, previous baseline was in the low-mid 1's -Increase possibly due to recent use of NSAID (diclofenac) -patient stopped about 1 week ago -Hold irbesartan for now -Follow-up renal functions in the morning -Likely will need outpatient nephrology follow-up (5) HTN (hypertension): Plan: -BP elevated on arrival, likely situational, improving without intervention -Continue home doses of metoprolol and nifedipine, holding irbesartan as above, provide alternative agent if needed (6) Rheumatoid arthritis: Plan: -Resuming prednisone as above (7) Depression: Plan: -Mental health consult as above (8) Hypothyroidism: Plan: -Continue levothyroxine -TSH 0.811 (9) DVT prophylaxis: Plan: -SQ heparin Admission and Anticipated Discharge Date Admission Date: November 18, 2020 History of Present Illness Chief Complaint: Generalized weakness, fatigue Primary Care Provider: Kj Minor MD 79-year-old female with PMH hypothyroidism, rheumatoid arthritis, HTN, CKD stage III, osteoarthritis, anxiety, depression, and other problems listed below who presents to the ED for evaluation of generalized weakness and fatigue. Patient reports symptoms have been ongoing for the past 3 months. 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 She went shopping today with her friend and reports that she was so weak that she could not get out of the car. She then presented to the ED for further evaluation. After reviewing patient's medications with her, she self stopped her chronic prednisone and venlafaxine a few weeks ago. Patient had been taking prednisone 10 mg daily. Patient also had seen rheumatology recently and was prescribed diclofenac. She only has been taking this intermittently due to GI upset. Patient has chronic sciatic issues which seem to be at baseline. Received an injection by rheumatology recently with minimal relief. Has PT scheduled to start next week which is helped her in the past. Patient reports some exertional shortness of breath. No chest pain. Feels lightheaded and dizzy at times however no syncopal event. Denies any other recent illnesses, fevers, chills. No abdominal pain, nausea, vomiting, diarrhea. Denies urinary symptoms. In the ED, labs show creatinine 2.0 (increased from recent baseline). Other labs unremarkable. Patient is hemodynamically stable. BP was elevated on arrival which has been improving without intervention. Patient was given IVF. Allergies Allergy/AdvReac Type Severity Reaction Status Date / Time aspirin Allergy Severe ANAPHYLAXIS Verified 11/18/20 11:47 duloxetine [From Cymbalta] Allergy Rash Verified 11/18/20 11:47 Home Medications Medication Instructions Recorded Confirmed Type brimonidine 0.2 %-timolol 0.5 % 1 drp OPB DAILY 11/07/17 11/18/20 History eye drops (Combigan) cyanocobalamin (vitamin B-12) 1,000 mcg PO HS 11/07/17 11/18/20 History 1,000 mcg tablet (Vitamin B-12) magnesium 250 mg tablet 500 mg PO HS 11/07/17 11/18/20 History nifedipine 60 mg tablet,extended 60 mg PO QAM 11/07/17 11/18/20 History release 24 hr (Procardia XL) potassium chloride 20 mEq 20 meq PO QAM 11/07/17 11/18/20 History tablet,extended release travoprost 0.004 % eye drops 1 drp OPB HS 11/07/17 11/18/20 History (Travatan Z) metoprolol succinate 100 mg 100 mg PO QAM 08/12/18 11/18/20 History tablet,extended release 24 hr irbesartan 150 mg tablet (Avapro) 150 mg PO HS 07/29/19 11/18/20 History vpnysozcvs-fmudksvrwidts-rkczkhhy 1 tab PO Q4H PRN 11/18/20 11/18/20 History 50 mg-325 mg-40 mg tablet cholecalciferol (vitamin D3) 50 50 mcg PO DAILY 11/18/20 11/18/20 History mcg (2,000 unit) tablet (Vitamin D3) dextromethorphan-guaifenesin 10 1 tab-cap PO Q8H PRN 11/18/20 11/18/20 History mg-200 mg capsule (Coricidin HBP Chest Congestion-Cough) gabapentin 300 mg capsule 300 mg PO BID 11/18/20 11/18/20 History hydrocodone 5 mg-acetaminophen 325 1 tab PO DAILY PRN 11/18/20 11/18/20 History mg tablet levothyroxine 75 mcg tablet 75 mcg PO DAILYBB 11/18/20 11/18/20 History lorazepam 0.5 mg tablet 0.5 mg PO DAILY PRN 11/18/20 11/18/20 History pantoprazole 40 mg tablet,delayed 40 mg PO DAILY 11/18/20 11/18/20 History release tizanidine 2 mg tablet 2 mg PO DAILY PRN 11/18/20 11/18/20 History prednisone 5 mg tablet 5 mg PO BID 30 Days #60 tab 11/19/20 Rx Past Med/Surg History Medical History Anxiety CKD (chronic kidney disease), stage III Depression Glaucoma Herniated lumbar disc without myelopathy Left central disc herniation at L5-S1 High cholesterol Hypertension Hypothyroidism Lumbar radiculopathy Neuropathy FEET Osteoarthritis Restless leg syndrome Rheumatoid arthritis FOLLOWS DR. TREVINO Rotator cuff tear, left Spinal stenosis, lumbar region with neurogenic claudication Surgical History History of carpal tunnel release RIGHT HAND History of total bilateral knee replacement (TKR) Hx laparoscopic cholecystectomy Hx of arthroscopy RIGHT KNEE (MENISCUS) Hx of hysterectomy Hx of tonsillectomy Family History Mother Family history of reaction to anesthesia SLOW TO AWAKEN Social History Smoking Status: Never smoker Hx Alcohol Use: Yes Alcohol type: other Hx Substance Use: No Preferred Language: Slovak Communication Ability: Effective Visual Impairment: No Limitations Radiology Scheduler Required: No Beliefs That Will Affect Care: None Current Living Situation: Alone Other Information That Helps Us Care for You: No Feels Safe at Home: Yes Safety Concerns: Feels Safe At This Time Assistive Devices: None Review of Systems Review of Systems: ROS per HPI, all other systems reviewed and negative Physical Exam Constitutional: WD/WN, vitals as above Eyes: PERRL, conjunctivae normal, anicteric sclerae ENMT: external ear and nose normal, oropharynx normal Respiratory: normal respiratory effort, lungs clear to auscultation Cardiovascular: Rate/Rhythm: regular rate and regular rhythm Vessels: lizeth l peripheral pulses Extremities: + edema (Trace edema BLE) Gastrointestinal (Abdomen): normal bowel sounds, soft, nontender, no hepatosplenomegaly Musculoskeletal: no cyanosis or clubbing, extremities motor strength 5/5 Skin: no rashes, warm and dry Neurologic: PERRL, EOMI, accommodation nl, no face palsy, no dysarthria Psychiatric: A+Ox3, euthymic affect Results & Data Results & Data ([facility]) Vital Signs (Past 12 Hours) Vital Signs Temp Pulse Pulse Resp BP BP Pulse Ox 11/18/20 17:34 36.9 C 75 18 180/79 H 100 11/18/20 16:30 73 16 180/95 H 100 11/18/20 16:00 81 20 171/90 H 98 11/18/20 15:30 76 18 163/82 H 99 11/18/20 15:00 77 16 144/77 H 98 11/18/20 14:30 76 13 144/72 H 100 11/18/20 14:00 76 19 144/73 H 100 11/18/20 13:30 74 14 144/71 H 100 11/18/20 13:20 20 100 11/18/20 13:00 71 15 140/77 100 11/18/20 12:30 70 15 158/96 H 98 11/18/20 12:00 70 23 185/96 H 99 11/18/20 11:30 74 17 209/91 H 98 11/18/20 11:10 73 15 209/93 H 11/18/20 11:04 76 20 96 11/18/20 10:44 36.4 C L 76 20 189/92 H 99 Laboratory Results Short CBC 11/18/20 Range/Units 11:18 WBC 8.64 (4.8-10.8) K/uL Hgb 10.9 L (12.0-16.0) g/dL Hct 34.9 L (37-47) % Plt Count 334 (130-400) K/uL BMP 11/18/20 11:18 Sodium 140 Potassium 4.3 Chloride 108 H Carbon Dioxide 25 BUN 27 H Creatinine 2.02 H Glucose 120 H Calcium 9.4 Cardiac Enzymes 11/18/20 Range/Units 11:18 Troponin I < 0.015 (0-0.045) ng/ml Liver Function 11/18/20 Range/Units 11:18 Total Bilirubin 0.7 (0.2-1) mg/dl AST 21 (15-37) U/L ALT 26 (12-78) U/L Alkaline Phosphatase 98 (45-117) U/L Albumin 3.7 (3.4-5.0) gm/dl Diagnostic Findings Chest X-Ray 11/18/20 10:49 XR chest 1V portable HISTORY: Shortness of breath. COMPARISON: Chest 08/30/2018. FINDINGS: Mild elevation of the right hemidiaphragm, unchanged. There are low lung volumes. The heart is top normal in size. No pleural effusions. No pneumothorax. The lungs are clear. No evidence for pulmonary edema. IMPRESSION: No significant change compared to the prior study. No acute process. ACT 112: Negative or not required by law. Electronically signed by: Guzman Sparks M.D. 11/18/2020 11:32 AM Code Status & VTE Plan Code Status Patient is a DNR as per my discussion with her. VTE Prophylaxis Plan VTE Prophylaxis will be ordered: Yes Supervising Physician Co-Signing Physician Notes 79-year-old lady with PMH of hypothyroidism, rheumatoid arthritis on chronic steroid [5 mg twice a day], hypertension, CKD stage III, depression, osteoarthritis, anxiety came in to our ED 11/18 with complaint of 2 to 3 months of generalized weakness, worsening lately and was found to have DENNIS over CKD in the ED. Patient is currently being managed for generalized weakness. PT OT consulted. DENNIS over CKDcontinue with gentle fluid. Hypertensionwe will resume home medication and continue to monitor. Upon examination: GENERAL: Alert and oriented x3. NAD, on RA. HEENT: No pallor, no icterus. Pupils equal, round and reactive to light. Oral mucosa moist. NECK: No JVD, no neck masses. HEART: S1 and S2 heard. Regular rate and rhythm. Systolic murmur over aortic and pulmonic area, no gallop. RESPIRATORY SYSTEM: Normal AP diameter. No accessory muscle use. No wheezing, no crackles. ABDOMEN: Soft, bowel sounds present, nontender, no distention. CENTRAL NERVOUS SYSTEM: Alert and oriented x3. No facial droop. Speech is clear. Obeys simple commands. Moves extremities. EXTREMITIES: Trace edema, no erythema seen. I have seen and examined the patient and have discussed the case with the provider above. I agree with the assessment and plan as stated. (1) Fatigue Fatigue type: unspecified Qualified Code(s): R53.83 - Other fatigue
[2020-11-18] MEDS: SODIUM CHLORIDE 0.45 % 1,000 ML IV SCH (18:18)
[2020-11-18] MEDS ORDERED: amLODIPine BESYLATE 5 MG TAB PO ONE (18:30)
[2020-11-18] MEDS: predniSONE 5 MG TAB PO SCH (20:00)
[2020-11-18] MEDS: GABAPENTIN 300 MG CAP PO SCH (20:00)
[2020-11-18] MEDS ORDERED: MAGNESIUM OXIDE 400 MG TAB PO SCH (21:00)
[2020-11-18] MEDS ORDERED: TRAVOPROST Z 0.004% OPH SOLN 2.5 ML BTL OPB SCH (21:00)
[2020-11-18] MEDS ORDERED: CYANOCOBALAMIN 500 MCG TABLET (VITAMIN B-12) PO SCH (21:00)
[2020-11-18] MEDS: HEPARIN SOD 5,000 UNIT/0.5 ML VIAL SQ SCH (21:32)
[2020-11-18] MEDS: ORDER AWAITING ACTION [Brimonidine-Timolol [Combigan] 0.2-0.5 % Drops] SCH (23:57)
[2020-11-19] MEDS: HEPARIN SOD 5,000 UNIT/0.5 ML VIAL SQ SCH ×2 (06:02→13:01)
[2020-11-19] MEDS ORDERED: LEVOTHYROXINE SODIUM 75 MCG TABLET PO SCH (06:30)
[2020-11-19] MEDS: ORDER AWAITING ACTION [Brimonidine-Timolol [Combigan] 0.2-0.5 % Drops] SCH ×2 (07:56→10:53)
[2020-11-19 08:10] LABS: Hematocrit (blood only) 29.8 % (37-47); Hemoglobin 9.6 g/dL (12.0-16.0); Mean Corpuscular Hemoglobin 30.8 pg (25-34); Mean Corpuscular Hgb Conc 32.2 g/dL (32-36); Mean Corpuscular Volume 95.5 fL (80-100); Mean Platelet Volume 8.9 fL (7.4-10.4); Platelet Count 298 K/uL (130-400); RDW Coefficient of Variation 14.4 % (11.5-14.5); Red Blood Count 3.12 M/uL (4.2-5.4); White Blood Count 7.86 K/uL (4.8-10.8)
[2020-11-19] MEDS: GABAPENTIN 300 MG CAP PO SCH (08:42)
[2020-11-19 08:43] LABS: BUN Creatinine Ratio 14.4 (10-20); Calcium 8.6 mg/dl (8.5-10.1); Creatinine Clr Calc Pharmacy 30.5 ml/min; Est GFR (African American) 35.1 ml/min; Est GFR (Non-African American) 30.3 ml/min; Potassium 3.8 mmol/L (3.5-5.1)
[2020-11-19] MEDS: predniSONE 5 MG TAB PO SCH (08:43)
[2020-11-19] MEDS ORDERED: amLODIPine BESYLATE 5 MG TAB PO SCH (09:00)
[2020-11-19] MEDS ORDERED: CHOLECALCIFEROL 1,000 UNITS 25 MCG TAB PO SCH (09:00)
[2020-11-19] MEDS ORDERED: PANTOprazole 40 MG TAB PO SCH (09:00)
[2020-11-19] MEDS ORDERED: NIFEdipine EXTENDED REL 30 MG TABCR PO SCH (09:00)
[2020-11-19] MEDS ORDERED: POTASSIUM CHLORIDE CRTAB 20 MEQ TABCR PO SCH (09:00)
[2020-11-19] MEDS ORDERED: METOPROLOL SUCC 50MG EXT REL TAB PO SCH (09:00)
[2020-11-19] MEDS: SODIUM CHLORIDE 0.45 % 1,000 ML IV SCH (10:48)
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
--- NOTE | 2020-11-19 15:14 | Electrocardiogram Report ---
Test Reason : Blood Pressure : / mmHG Vent. Rate : 069 BPM Atrial Rate : 069 BPM P-R Int : 130 ms QRS Dur : 094 ms QT Int : 392 ms P-R-T Axes : 044 006 049 degrees QTc Int : 420 ms Normal sinus rhythm Possible Left atrial enlargement Borderline ECG When compared with ECG of 13-AUG-2018 15:28, No significant change was found Confirmed by Alexis Hernandez ([id number]) on 11/19/2020 3:14:20 PM Referred By: [email or web address] Confirmed By:Alton Hernandez
--- NOTE | 2020-11-19 16:55 | Discharge Summary ---
Date of Service November 19, 2020 Admission HPI Per Admitting Provider 79-year-old female with PMH hypothyroidism, rheumatoid arthritis, HTN, CKD stage III, osteoarthritis, anxiety, depression, and other problems listed below who presents to the ED for evaluation of generalized weakness and fatigue. Patient reports symptoms have been ongoing for the past 3 months. 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 She went shopping today with her friend and reports that she was so weak that she could not get out of the car. She then presented to the ED for further evaluation. After reviewing patient's medications with her, she self stopped her chronic prednisone and venlafaxine a few weeks ago. Patient had been taking prednisone 10 mg daily. Patient also had seen rheumatology recently and was prescribed diclofenac. She only has been taking this intermittently due to GI upset. Patient has chronic sciatic issues which seem to be at baseline. Received an injection by rheumatology recently with minimal relief. Has PT scheduled to start next week which is helped her in the past. Patient reports some exertional shortness of breath. No chest pain. Feels lightheaded and dizzy at times however no syncopal event. Denies any other recent illnesses, fevers, chills. No abdominal pain, nausea, vomiting, diarrhea. Denies urinary symptoms. In the ED, labs show creatinine 2.0 (increased from recent baseline). Other labs unremarkable. Patient is hemodynamically stable. BP was elevated on arrival which has been improving without intervention. Patient was given IVF. Admission Exam Per Admitting Provider GENERAL: Alert and oriented x3. NAD, on RA. HEENT: No pallor, no icterus. Pupils equal, round and reactive to light. Oral mucosa moist. NECK: No JVD, no neck masses. HEART: S1 and S2 heard. Regular rate and rhythm. Systolic murmur over aortic and pulmonic area, no gallop. RESPIRATORY SYSTEM: Normal AP diameter. No accessory muscle use. No wheezing, no crackles. ABDOMEN: Soft, bowel sounds present, nontender, no distention. CENTRAL NERVOUS SYSTEM: Alert and oriented x3. No facial droop. Speech is clear. Obeys simple commands. Moves extremities. EXTREMITIES: Trace edema, no erythema seen. Principal Diagnosis Generalized weakness DENNIS over CKD Discharge Exam GENERAL: Alert and oriented x3. NAD, on RA. HEENT: No pallor, no icterus. Pupils equal, round and reactive to light. Oral mucosa moist. NECK: No JVD, no neck masses. HEART: S1 and S2 heard. Regular rate and rhythm. Systolic murmur over aortic and pulmonic area, no gallop. RESPIRATORY SYSTEM: Normal AP diameter. No accessory muscle use. No wheezing, no crackles. ABDOMEN: Soft, bowel sounds present, nontender, no distention. CENTRAL NERVOUS SYSTEM: Alert and oriented x3. No facial droop. Speech is clear. Obeys simple commands. Moves extremities. EXTREMITIES: Trace edema, no erythema seen. Discharge Data Allergies Allergy/AdvReac Type Severity Reaction Status Date / Time aspirin Allergy Severe ANAPHYLAXIS Verified 11/18/20 11:47 duloxetine [From Cymbalta] Allergy Rash Verified 11/18/20 11:47 Consultations 11/18/20 15:16 ED Decision to Admit Stat 11/18/20 16:43 Consult Psychiatry Routine Hospital Course (1) Weakness: (2) Acute kidney injury superimposed on CKD: (3) CKD (chronic kidney disease), stage III: (4) HTN (hypertension): (5) Rheumatoid arthritis: -Resuming prednisone as above (6) Depression: -Mental health consult as above (7) Hypothyroidism: -Continue levothyroxine -TSH 0.811 79-year-old lady with PMH of hypothyroidism, rheumatoid arthritis on chronic steroid [5 mg twice a day], hypertension, CKD stage III, depression, osteoarthritis, anxiety came in to our ED 11/18 with complaint of 2 to 3 months of generalized weakness, worsening lately and was found to have DENNIS over CKD in the ED. Patient improved and started feeling better today, PT/OT were consulted and recommended discharge to home with family friend support and home PT. Patient already has home PT schedule coming over Sunday. Patient advised to not stop her steroid abruptly. AFC wishes to stop it in future, patient advised to consult with her rheumatology. Also patient's DENNIS over CKD improved with IV hydration. Patient has a stopped her Effexor recently on her own. Inpatient psychiatry evaluated her and does not feel the need to restart her depression medication. Patient's blood pressure were on the higher side while in hospital, her irbesartan was held for some time due to concerns of DENNIS over CKD. Also patient states that her blood pressure is generally higher in healthcare settings. Patient advised to maintain close follow-up with the primary care physician for reassessment/dose adjustment in her blood pressure medication as appropriate in future. Following instructions were communicated to the patient at the time of discharge: Follow-up with your primary care doctor within a week's time. Continue to take your medication as prescribed. Do not make any medication changes on your own, consult your primary care physician or your rheumatology. Continue to take prednisone for now, if you want to stop the steroid in future, consult with your primary care physician/rheumatology to taper it down to stop. Continue with your scheduled home health physical therapy. Total Time Total Time Spent Total Time Spent (In Minutes): 35 Discharge Plan Discharge Items Patient Disposition: Home - Home Health Services Reason For Visit: GENERALIZED WEAKNESS Discharge Diagnosis: Generalized weakness DENNIS over CKD Activity: Resume your previous activity Non-emergency contact: Primary Care Provider Call non-emergency contact if: you have any medication questions and your symptoms worsen Follow-up/Referrals: Kj Minor MD [Primary Care Provider] - (Date & Time 11/26/2020 12:00 PM Provider Kj Minor MD Department Family Medicine [facility] [place] ) Diet: Heart Healthy and Low Fat Addtl Attending Provider Instructions: Follow-up with your primary care doctor within a week's time. Continue to take your medication as prescribed. Do not make any medication changes on your own, consult your primary care physician or your rheumatology. Continue to take prednisone for now, if you want to stop the steroid in future, consult with your primary care physician/rheumatology to taper it down to stop. Continue with your scheduled home health physical therapy. Pending Studies at Discharge: No Stand-Alone Forms: My [employer], Smoking Cessation Medications and DC Order Prescriptions: New prednisone 5 mg Tablet 5 mg PO BID 30 Days Qty: 60 RF: 0 Continued irbesartan [Avapro] 150 mg tablet 150 mg PO HS RF: 0 metoprolol succinate 100 mg Tablet Extended Release 24 Hr 100 mg PO QAM RF: 0 cyanocobalamin (vitamin B-12) [Vitamin B-12] 1,000 mcg Tablet 1,000 mcg PO HS RF: 0 travoprost [Travatan Z] 0.004 % Drops 1 drp OPB HS RF: 0 magnesium 250 mg Tablet 500 mg PO HS RF: 0 Combigan 0.2-0.5 % Drops 1 drp OPB DAILY RF: 0 potassium chloride 20 mEq Tablet Extended Release 20 meq PO QAM RF: 0 nifedipine [Procardia XL] 60 mg Tablet Extended Release 24hr 60 mg PO QAM RF: 0 tizanidine 2 mg tablet 2 mg PO DAILY PRN (Reason: Muscle Pain) RF: 0 Coricidin HBP Chest Alfredo-Cough 10-200 mg Capsule 1 tab-cap PO Q8H PRN (Reason: Cold Symptoms) RF: 0 tarymzttru-jiuedfmxgdnrm-aryd 50-325-40 mg Tablet 1 tab PO Q4H PRN (Reason: sinus headache) RF: 0 levothyroxine 75 mcg tablet 75 mcg PO DAILYBB RF: 0 lorazepam 0.5 mg tablet 0.5 mg PO DAILY PRN (Reason: Anxiety) RF: 0 pantoprazole 40 mg tablet,delayed release (DR/EC) 40 mg PO DAILY RF: 0 gabapentin 300 mg capsule 300 mg PO BID RF: 0 cholecalciferol (vitamin D3) [Vitamin D3] 50 mcg (2,000 unit) Tablet 50 mcg PO DAILY RF: 0 hydrocodone-acetaminophen 5-325 mg Tablet 1 tab PO DAILY PRN (Reason: Pain) RF: 0 Discharge Orders: Discharge Order (Routine); Ordered 11/19/20 Ordered By: Helen Arreguin/Other Patient Handouts: Preventing Deep Vein Thrombosis Admission Data Admit Date/Time: 11/18/20 15:38 Attending Provider: Helen Barbour Admit Provider: Helen Barbour Primary Care Provider: Kj Minor Other Providers: Yesenia Sanchez ; Christie Iqbal ; Nicholas Sweet ; Helen Barbour Other Interventions: Discharge Summary Assessment (RN) Last Done: 11/19/20 16:34
== END 2020-11-19 17:38 | disposition home health service (06) ==
LOC: 3W 10:41 → ED 10:41 → 3W 16:51

== ENCOUNTER 2021-05-20 17:59 | Observation (INO) ==
[2021-05-20] MEDS ORDERED: IRBESARTAN 150 MG TAB PO ONE (18:26)
[2021-05-20] MEDS ORDERED: LABETALOL HCL IV 5 MG/ML 20ML IV STA ×2 (18:26→19:26)
--- NOTE | 2021-05-20 18:41 | XRay Report ---
XR chest 1V portable HISTORY: 80 years-old Female Hypertension acute hypertension COMPARISON: Chest radiograph 11/18/2020 TECHNIQUE: Portable AP view of the chest FINDINGS: Cardiac silhouette is enlarged. Eventration of the right hemidiaphragm. Mild subsegmental bibasilar a telectasis. No pneumothorax, pleural effusion, lobar airspace consolidation or overt pulmonary edema. Subacute to chronic displaced and angulated distal right clavicular fracture appears unchanged. Dege nerative changes of the shoulders and spine. IMPRESSION: No acute process. ACT 112: Negative or not required by law. The above report was generated using voice recognition software. It may contain grammatical, syntax o r spelling errors. Electronically signed by: Nic Winters M.D. 05/20/2021 6:39 PM
[2021-05-20 18:45] LABS: Basophils # (auto) 0.03 K/uL (0-0.2); Basophils % (auto) 0.4 %; Eosinophils % (auto) 1.2 %; Hematocrit (blood only) 35.5 % (37-47); Hemoglobin 11.5 g/dL (12.0-16.0); Immature Granulocytes # (auto) 0.02 K/uL (0.00-0.02); Immature Granulocytes % (auto) 0.2 %; Lymphocytes # (auto) 1.36 K/uL (1.2-3.4); Lymphocytes % (auto) 15.9 %; Mean Corpuscular Hgb Conc 32.4 g/dL (32-36); Mean Corpuscular Volume 92.7 fL (80-100); Mean Platelet Volume 9.5 fL (7.4-10.4); Monocytes # (auto) 1.01 K/uL (0.11-0.59); Monocytes % (auto) 11.8 %; Neutrophils # (auto) 6.03 K/uL (1.4-6.5); Neutrophils % (auto) 70.5 %; Platelet Count 321 K/uL (130-400); RDW Coefficient of Variation 15.4 % (11.5-14.5); Red Blood Count 3.83 M/uL (4.2-5.4); White Blood Count 8.55 K/uL (4.8-10.8)
--- NOTE | 2021-05-20 18:54 | Emergency Department Note ---
Impression & Plan Hypertensive emergency, Rheumatoid arthritis, Elevated troponin I level, CKD (chronic kidney disease), stage III ED Provider Note Provider: Steven Lai MD DATE OF SERVICE: 05/20/2021 CHIEF COMPLAINT: Hypertension HISTORY OF PRESENT ILLNESS: Patient is a 80-year-old female history of hypot hyroidism, hypertension, CKD, chronic back pain, rheumatoid arthritis, depression, knee replacement presenting referred from the outpatient clinic today for elevated blood pressure. Patient noted over the last several months that her blood pressures been elevated. Has been following with her doctor. Seen in the office last week and had increased nifedipine. Taking this as well as her metoprolol and irbesartan pressure still elevated in the office today and sent here for further evaluation. Patient states she may have had a little bit of tingling in her cheeks the other night when she felt her blood pressure was elevated. Patient denies any headache, numbness or weakness now, chest pain, shortness of breath, or other significant new complaint. Denies significant leg swelling. Denies use of stimulants or significant caffeine. Patient does endorse some anxiety and has been stressed about a bear this been around her house recently as well. Patient states she there was injections and is on chronic prednisone daily. REVIEW OF SYSTEMS: A total of 10 review of systems was obtained and negative except as stated above in the HPI. PAST MEDICAL HISTORY: As noted above MEDICATIONS: Reviewed home medication list SOCIAL HISTORY: Lives at home by herself PHYSICAL EXAM: GENERAL: alert and oriented in no acute distress on stretcher although mildly anxious Head: normocephalic and atraumatic EYES: No injection, discharge or icterus. PERRL NECK: Trachea midline. LUNGS: Airway patent. No retractions. Breath sounds clear HEART: Regular rate and rhythm. No chest wall tenderness ABDOMEN: Soft and non-tender, without guarding or rebound. SKIN: Acyanotic, warm, dry, without rashes EXTREMITIES: Without swelling or tenderness NEUROLOGICAL: No focal deficits. No aphasia. No facial droop or slurred speech. Normal strength and tone in the extremities. Sensation to gross touch normal. EK bpm normal sinus rhythm. No PVC or PAC. Some LVH but no ST segment elevation or depression noted. QTc 423 CONTINUOUS CARDIAC MONITORING: was ordered and showed a heart rate of 70s to 80s bpm in normal sinus rhythm Patient's laboratory studies and imaging reviewed. Differential includes Benign hypertension, hypertensive emergency, cardiovascular pathology, toxicologic, pheochromocytoma, electrolyte abnormality, renal disease, endorgan damage, as well as other pathologies. IMPRESSION/MEDICAL DECISION MAKING: No significant neuro deficits now with other question reported may be a little bit of bilateral facial tingling several days ago. Doubt this represents acute CVA. Patient's blood pressure is severely elevated here greater than 200 systolic. Given labetalol here IV. Has been working outpatient setting with increasing hypertensives. Some component of anxiety and stress may be contributing. Not having significant chest pain or shortness of breath. Basic labs were sent. Not hypoxic and chest is reassuring without evidence of fluid overload. EKG and troponin were sent EKG without acute findings concerning for STEMI at this point. Elevated troponin detected today but no active chest pain. Likely in the setting of significant hypertension. Patient with severe allergy to aspirin. Patient will require admission for further blood pressure admission and optimization given the sign of endorgan damage. No signs of significant worsened renal function or severe electrolyte abnormality although mild hypocalcemia is noted. TSH level and Covid test were sent. Discussed with the patient the findings with her later blood pressure and troponin and refractory nature blood pressure in the outpatient setting recommended further care here at the hospital. Hospitalist was contacted. DIAGNOSIS: Hypertensive emergency, elevated troponin DISPOSITION: Hospitalist will evaluate Patient was agreeable with this plan. Critical Care I have personally spent 32 minutes of critical care time in the direct management of this patient. This includes bedside care, interpretation of diagnostic studies, and testing, discussion with consultants, patient, and family members, and other required patient management activities. These 32 minutes is in excess of all separately billable procedures. Past Med/Surg History Medical History Anxiety CKD (chronic kidney disease), stage III Depression Glaucoma Herniated lumbar disc without myelopathy Left central disc herniation at L5-S1 High cholesterol Hypertension Hypothyroidism Lumbar radiculopathy Neuropathy FEET Osteoarthritis Restless leg syndrome Rheumatoid arthritis FOLLOWS DR. TREVINO Rotator cuff tear, left Spinal stenosis, lumbar region with neurogenic claudication Surgical History History of carpal tunnel release RIGHT HAND History of total bilateral knee replacement (TKR) Hx laparoscopic cholecystectomy Hx of arthroscopy RIGHT KNEE (MENISCUS) Hx of hysterectomy Hx of tonsillectomy Family History Mother Family history of reaction to anesthesia SLOW TO AWAKEN Social History Smoking Status: Never smoker Hx Alcohol Use: Yes Alcohol type: other Hx Substance Use: No Preferred Language: Vincentian Communication Ability: Effective Visual Impairment: No Limitations Device Processing Engineer Required: No Beliefs That Will Affect Care: None Current Living Situation: Alone Feels Safe at Home: Yes Assistive Devices: None Allergies Allergies Allergy/AdvReac Type Severity Reaction Status Date / Time aspirin Allergy Severe ANAPHYLAXIS Verified 05/20/21 18:17 duloxetine [From Cymbalta] Allergy Rash Verified 05/20/21 18:17 Home Meds Home Medications Medication Instructions Recorded Confirmed brimonidine 0.2 %-timolol 0.5 % 1 drp OPB DAILY 11/07/17 05/20/21 eye drops (Combigan) cyanocobalamin (vitamin B-12) 1,000 mcg PO HS 11/07/17 05/20/21 1,000 mcg tablet (Vitamin B-12) magnesium 250 mg tablet 500 mg PO HS 11/07/17 05/20/21 nifedipine 60 mg tablet,extended 60 mg PO QAM 11/07/17 05/20/21 release 24 hr (Procardia XL) potassium chloride 20 mEq 20 meq PO QAM 11/07/17 05/20/21 tablet,extended release travoprost 0.004 % eye drops 1 drp OPB HS 11/07/17 05/20/21 (Travatan Z) metoprolol succinate 100 mg 100 mg PO QAM 08/12/18 05/20/21 tablet,extended release 24 hr irbesartan 150 mg tablet (Avapro) 150 mg PO HS 07/29/19 05/20/21 jnjufqurnk-hxwuwqamuybev-ogofntis 1 tab PO Q4H PRN 11/18/20 05/20/21 50 mg-325 mg-40 mg tablet cholecalciferol (vitamin D3) 50 50 mcg PO DAILY 11/18/20 05/20/21 mcg (2,000 unit) tablet (Vitamin D3) dextromethorphan-guaifenesin 10 1 tab-cap PO Q8H PRN 11/18/20 05/20/21 mg-200 mg capsule (Coricidin HBP Chest Congestion-Cough) hydrocodone 5 mg-acetaminophen 325 1 tab PO DAILY PRN 11/18/20 05/20/21 mg tablet levothyroxine 75 mcg tablet 75 mcg PO DAILYBB 11/18/20 05/20/21 lorazepam 0.5 mg tablet 0.5 mg PO DAILY PRN 11/18/20 05/20/21 pantoprazole 40 mg tablet,delayed 40 mg PO DAILY 11/18/20 05/20/21 release tizanidine 2 mg tablet 2 mg PO DAILY PRN 11/18/20 05/20/21 gabapentin 300 mg capsule 300 mg PO TID cap 04/05/21 05/20/21 nifedipine 90 mg tablet,extended 90 mg PO DAILY 05/20/21 05/20/21 release 24 hr Results & Data (ED) Vital Signs Vital Signs - 24 hr 05/20/21 18:03 05/20/21 18:15 05/20/21 18:45 Temperature 36.1 C L Temperature Source Temporal Artery Scan Pulse Rate 82 75 Respiratory Rate 20 17 Respiratory Effort / Characteristics Non-Labored Respiratory Depth Normal Blood Pressure 215/102 H 207/91 H Blood Pressure [Right Arm] 235/106 H Blood Pressure Mean 139 129 Blood Pressure Mean [Right Arm] 149 Pulse Oximetry 98 96 Oxygen Delivery Method Room Air Room Air Sepsis Recent Fever Within 48 Hours No Sepsis New/Unexplained Change in Mental Status N/A Sepsis Action Taken by Nursing No Action Required 05/20/21 19:03 05/20/21 19:15 05/20/21 19:21 Temperature Temperature Source Pulse Rate 77 74 77 Respiratory Rate 18 16 20 Respiratory Effort / Characteristics Respiratory Depth Blood Pressure 184/89 H 186/86 H 202/124 H Blood Pressure [Right Arm] Blood Pressure Mean 120 119 150 Blood Pressure Mean [Right Arm] Pulse Oximetry 97 98 97 Oxygen Delivery Method Room Air Room Air Room Air Sepsis Recent Fever Within 48 Hours Sepsis New/Unexplained Change in Mental Status Sepsis Action Taken by Nursing 05/20/21 19:45 05/20/21 20:15 05/20/21 20:17 Temperature Temperature Source Pulse Rate 78 79 81 Respiratory Rate 18 15 20 Respiratory Effort / Characteristics Respiratory Depth Blood Pressure 177/80 H 174/81 H 241/112 H Blood Pressure [Right Arm] Blood Pressure Mean 112 112 155 Blood Pressure Mean [Right Arm] Pulse Oximetry Oxygen Delivery Method Sepsis Recent Fever Within 48 Hours Sepsis New/Unexplained Change in Mental Status Sepsis Action Taken by Nursing 05/20/21 20:30 Temperature Temperature Source Pulse Rate 85 Respiratory Rate 20 Respiratory Effort / Characteristics Respiratory Depth Blood Pressure 250/102 H Blood Pressure [Right Arm] Blood Pressure Mean 151 Blood Pressure Mean [Right Arm] Pulse Oximetry Oxygen Delivery Method Sepsis Recent Fever Within 48 Hours Sepsis New/Unexplained Change in Mental Status Sepsis Action Taken by Nursing Laboratory Data Result diagrams: 05/20/21 18:24 05/20/21 18:24 Lab Results 05/20/21 05/20/21 05/20/21 Range/Units 18:24 18:24 18:24 WBC 8.55 (4.8-10.8) K/uL RBC 3.83 L (4.2-5.4) M/uL Hgb 11.5 L (12.0-16.0) g/dL Hct 35.5 L (37-47) % MCV 92.7 (80-100) fL MCH 30.0 (25-34) pg MCHC 32.4 (32-36) g/dL RDW Std Deviation 52.0 H (36.4-46.3) fL RDW Coeff of Mario 15.4 H (11.5-14.5) % Plt Count 321 (130-400) K/uL MPV 9.5 (7.4-10.4) fL Immature Gran % (Auto) 0.2 % Neut % (Auto) 70.5 % Lymph % (Auto) 15.9 % [place] % (Auto) 11.8 % Eos % (Auto) 1.2 % Baso % (Auto) 0.4 % Neut # (Auto) 6.03 (1.4-6.5) K/uL Lymph # (Auto) 1.36 (1.2-3.4) K/uL [place] # (Auto) 1.01 H (0.11-0.59) K/uL Eos # (Auto) 0.10 (0-0.5) K/uL Baso # (Auto) 0.03 (0-0.2) K/uL Immature Gran # (Auto) 0.02 (0.00-0.02) K/uL Sodium 141 (136-145) mmol/L Potassium 4.0 (3.5-5.1) mmol/L Chloride 109 H (98-107) mmol/L Carbon Dioxide 22 (21-32) mmol/L Anion Gap 10 (3-11) BUN 30 H (6-23) mg/dl Creatinine 1.13 (0.6-1.2) mg/dl Est Cr Clr Drug Dosing Not Reportable Est GFR ( Amer) 53.9 ml/min Est GFR (Non-Af Amer) 46.5 ml/min BUN/Creatinine Ratio 26.5 H (10-20) Glucose 124 H (70-99(Fasting)) mg/dl Calcium 8.1 L (8.5-10.1) mg/dl Magnesium 2.2 (1.7-2.4) mg/dl Total Bilirubin 0.5 (0.2-1.0) mg/dl AST 19 (13-39) U/L ALT 17 (7-52) U/L Alkaline Phosphatase 81 (34-104) U/L Troponin I 0.06 H* (0-0.04) ng/ml Total Protein 6.9 (6.0-8.3) gm/dl Albumin 4.2 (3.4-5.0) gm/dl Globulin 2.7 (2.5-4.0) gm/dl Albumin/Globulin Ratio 1.6 (0.9-2) TSH 0.219 L (0.300-4.500) uIu/ml Free T4 0.78 (0.61-1.60) ng/dl Urine Color Urine Appearance (Clear) Urine pH (4.5-7.5) Ur Specific [place] (1.000-1.030) Urine Protein (Negative) Urine Glucose (UA) (Negative) Urine Ketones (Negative) Urine Blood (Negative) Urine Nitrite (Negative) Urine Bilirubin (Negative) Urine Urobilinogen (Negative) Ur Leukocyte Esterase (Negative) SARS-CoV-2, RNA, NAAT (NEGATIVE) 05/20/21 05/20/21 Range/Units 19:21 20:30 WBC (4.8-10.8) K/uL RBC (4.2-5.4) M/uL Hgb (12.0-16.0) g/dL Hct (37-47) % MCV (80-100) fL MCH (25-34) pg MCHC (32-36) g/dL RDW Std Deviation (36.4-46.3) fL RDW Coeff of Mario (11.5-14.5) % Plt Count (130-400) K/uL MPV (7.4-10.4) fL Immature Gran % (Auto) % Neut % (Auto) % Lymph % (Auto) % [place] % (Auto) % Eos % (Auto) % Baso % (Auto) % Neut # (Auto) (1.4-6.5) K/uL Lymph # (Auto) (1.2-3.4) K/uL [place] # (Auto) (0.11-0.59) K/uL Eos # (Auto) (0-0.5) K/uL Baso # (Auto) (0-0.2) K/uL Immature Gran # (Auto) (0.00-0.02) K/uL Sodium (136-145) mmol/L Potassium (3.5-5.1) mmol/L Chloride (98-107) mmol/L Carbon Dioxide (21-32) mmol/L Anion Gap (3-11) BUN (6-23) mg/dl Creatinine (0.6-1.2) mg/dl Est Cr Clr Drug Dosing Est GFR ( Amer) ml/min Est GFR (Non-Af Amer) ml/min BUN/Creatinine Ratio (10-20) Glucose (70-99(Fasting)) mg/dl Calcium (8.5-10.1) mg/dl Magnesium (1.7-2.4) mg/dl Total Bilirubin (0.2-1.0) mg/dl AST (13-39) U/L ALT (7-52) U/L Alkaline Phosphatase (34-104) U/L Troponin I (0-0.04) ng/ml Total Protein (6.0-8.3) gm/dl Albumin (3.4-5.0) gm/dl Globulin (2.5-4.0) gm/dl Albumin/Globulin Ratio (0.9-2) TSH (0.300-4.500) uIu/ml Free T4 (0.61-1.60) ng/dl Urine Color Yellow Urine Appearance Clear (Clear) Urine pH 5.5 (4.5-7.5) Ur Specific [place] 1.020 (1.000-1.030) Urine Protein Negative (Negative) Urine Glucose (UA) Negative (Negative) Urine Ketones Negative (Negative) Urine Blood Negative (Negative) Urine Nitrite Negative (Negative) Urine Bilirubin Negative (Negative) Urine Urobilinogen Negative (Negative) Ur Leukocyte Esterase Negative (Negative) SARS-CoV-2, RNA, NAAT NEGATIVE (NEGATIVE) Administered Medications Discontinued Medications Hydralazine HCl (Hydralazine Hcl 20 Mg/Ml Vial) 10 mg IV NOW STA Stop: 05/20/21 20:57 Last Admin: 05/20/21 21:19 Dose: 10 mg Documented by: [id number] Calcium Gluconate () 1,000 mg in 60 mls @ 240 mls/hr IV NOW STA Stop: 05/20/21 19:55 Last Infusion: 05/20/21 20:47 Dose: 0 mls/hr Documented by: [id number] Admin: 05/20/21 20:10 Dose: 240 mls/hr Documented by: [id number] Irbesartan (Irbesartan 150 Mg Tab) 150 mg PO ONCE ONE Stop: 05/20/21 18:27 Last Admin: 05/20/21 19:19 Dose: 150 mg Documented by: [id number] Irbesartan (Irbesartan 150 Mg Tab) 150 mg PO NOW STA Stop: 05/20/21 21:00 Last Admin: 05/20/21 21:18 Dose: 150 mg Documented by: [id number] Labetalol HCl (Labetalol Hcl Iv 5 Mg/Ml 20ml) 10 mg IV NOW STA Stop: 05/20/21 18:27 Last Admin: 05/20/21 18:43 Dose: 10 mg Documented by: [id number] Cosigned by: [id number] Labetalol HCl (Labetalol Hcl Iv 5 Mg/Ml 20ml) 10 mg IV NOW STA Stop: 05/20/21 19:27 Last Admin: 05/20/21 19:44 Dose: 10 mg Documented by: [id number] Cosigned by: [id number] Imaging Data Radiologist's Impression: Chest X-Ray 05/20/21 18:26 XR chest 1V portable HISTORY: 80 years-old Female Hypertension acute hypertension COMPARISON: Chest radiograph 11/18/2020 TECHNIQUE: Portable AP view of the chest FINDINGS: Cardiac silhouette is enlarged. Eventration of the right hemidiaphragm. Mild subsegmental bibasilar atelectasis. No pneumothorax, pleural effusion, lobar airspace consolidation or overt pulmonary edema. Subacute to chronic displaced and angulated distal right clavicular fracture appears unchanged. Degenerative changes of the shoulders and spine. IMPRESSION: No acute process. ACT 112: Negative or not required by law. The above report was generated using voice recognition software. It may contain grammatical, syntax or spelling errors. Electronically signed by: Nic Winters M.D. 05/20/2021 6:39 PM Discharge Plan Visit Data Chief Complaint: Hypertension Stated Complaint: HIGH BP, DR REFERRED ED Provider: Steven Lai Discharge Problem: Hypertensive emergency, Rheumatoid arthritis, Elevated troponin I level, CKD (chronic kidney disease), stage III Patient Disposition: Being Evaluated by Hospitalist Forms Stand Alone Forms: [facility] [employer] Prescriptions Prescriptions: No Action irbesartan [Avapro] 150 mg tablet 150 mg PO HS RF: 0 metoprolol succinate 100 mg Tablet Extended Release 24 Hr 100 mg PO QAM RF: 0 cyanocobalamin (vitamin B-12) [Vitamin B-12] 1,000 mcg Tablet 1,000 mcg PO HS RF: 0 travoprost [Travatan Z] 0.004 % Drops 1 drp OPB HS RF: 0 magnesium 250 mg Tablet 500 mg PO HS RF: 0 brimonidine-timolol [Combigan] 0.2-0.5 % Drops 1 drp OPB DAILY RF: 0 potassium chloride 20 mEq Tablet Extended Release 20 meq PO QAM RF: 0 nifedipine [Procardia XL] 60 mg Tablet Extended Release 24hr 60 mg PO QAM RF: 0 tizanidine 2 mg tablet 2 mg PO DAILY PRN (Reason: Muscle Pain) RF: 0 Coricidin HBP Chest Alfredo-Cough 10-200 mg Capsule 1 tab-cap PO Q8H PRN (Reason: Cold Symptoms) RF: 0 zrmjhuzxgr-vjovjmokrsuvg-idhs 50-325-40 mg Tablet 1 tab PO Q4H PRN (Reason: sinus headache) RF: 0 levothyroxine 75 mcg tablet 75 mcg PO DAILYBB RF: 0 lorazepam 0.5 mg tablet 0.5 mg PO DAILY PRN (Reason: Anxiety) RF: 0 pantoprazole 40 mg tablet,delayed release (DR/EC) 40 mg PO DAILY RF: 0 cholecalciferol (vitamin D3) [Vitamin D3] 50 mcg (2,000 unit) Tablet 50 mcg PO DAILY RF: 0 hydrocodone-acetaminophen 5-325 mg Tablet 1 tab PO DAILY PRN (Reason: Pain) RF: 0 gabapentin 300 mg capsule 300 mg PO TID RF: 0 nifedipine 90 mg tablet extended release 24 hr 90 mg PO DAILY RF: 0 Referrals Referrals: Kj Minor MD [Primary Care Provider] - Discharge Problem: Rheumatoid arthritis Qualifiers: Rheumatoid arthritis location: unspecified site Rheumatoid factor presence: unspecified presence Qualified Code(s): M06.9 - Rheumatoid arthritis, unspecified CKD (chronic kidney disease), stage III Qualifiers: Chronic kidney disease stage 3 subtype: stage 3a (GFR 45-59) Qualified Code(s): N18.31 - Chronic kidney disease, stage 3a
[2021-05-20 19:08] LABS: Troponin I 0.06 ng/ml (0-0.04)
[2021-05-20 19:09] LABS: Alanine Aminotransferase 17 U/L (7-52); Albumin Globulin Ratio 1.6 (0.9-2); Albumin Level 4.2 gm/dl (3.4-5.0); Alkaline Phosphatase 81 U/L (34-104); Anion Gap 10 (3-11); Aspartate Aminotransferase 19 U/L (13-39); BUN Creatinine Ratio 26.5 (10-20); Bilirubin,Total 0.5 mg/dl (0.2-1.0); Blood Urea Nitrogen 30 mg/dl (6-23); Calcium 8.1 mg/dl (8.5-10.1); Carbon Dioxide 22 mmol/L (21-32); Chloride 109 mmol/L (98-107); Est GFR (African American) 53.9 ml/min; Est GFR (Non-African American) 46.5 ml/min; Globulin 2.7 gm/dl (2.5-4.0); Glucose 124 mg/dl (70-99(Fasting)); Magnesium 2.2 mg/dl (1.7-2.4); Sodium 141 mmol/L (136-145); Total Protein 6.9 gm/dl (6.0-8.3)
[2021-05-20 19:19] LABS: Thyroid Stimulating Hormone 0.219 uIu/ml (0.300-4.500)
[2021-05-20] MEDS ORDERED: CALCIUM GLUCONATE 1,000 MG/60 ML BAG IV STA (19:41)
[2021-05-20] MEDS ORDERED: hydrALAZINE HCL 20 MG/ML VIAL IV STA (20:56)
--- NOTE | 2021-05-20 20:57 | History & Physical Report ---
Date of Service May 20, 2021 Assessment & Plan (1) Hypertensive emergency: Plan: Uncontrolled BP with troponin elevation Suboptimal control at baseline Anxiety definitely contributory to symptoms. 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 at bedtime Amlodipine if BP still uncontrolled Follow troponin TTE Re: Troponin elevation May benefit from cardiology consultation for uncontrolled hypertension Anxiolytic as needed Psychiatry consult Re: Uncontrolled anxiety Check hemoglobin A1c DVT prophylaxis. Lovenox subcu Full code Text document was generated using [employer] voice recognition software. It may contain grammatical or spelling errors. Kindly contact undersigned for clarification of any documentation item in question. History of Present Illness Chief Complaint: Uncontrolled blood pressure Primary Care Provider: Kj Minor MD History obtained from patient, family, and records. 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 Last confinement November 2020 for generalized weakness, ARF on CKD. Patient underwent outpatient L5-S1 epidural steroid injection for lumbar spinal stenosis by [facility] pain management last May 11, 2021. SBP noted to be 200s during procedure. Patient denies chest pain, S OB, headache symptoms. Specialist recommended outpatient PCP evaluation. Patient does not check blood pressure at home. Some stress from some loss of independence the last few months with her inability to drive secondary to worsening feet neuropathy. Admits to being an anxious person. Trying to limit as needed home Ativan intake to instances where her blood pressure is high as per discussion with PCP. Patient unaware of sleep apnea symptoms. Denies OTC NSAID intake. Was taking Sudafed last week for some sinus congestion symptoms which patient stopped after she was told about effects on blood pressure. Patient says she is depressed because she is lonely. Denies suicidality. Leg pain from L SS actually better after last epidural injection. Patient seen at PCPs office last week for BP evaluation. BP noted to be 240/112 at the office. Patient refused ER evaluation. Patient nifedipine dose increased. Patient complied with home medications but held off on daily BP monitoring because she knew it was going to make her blood pressure worse Patient returned to PCPs office for follow-up visit today. BP noted to be 190/100. Patient denies chest pain, S OB, headache symptoms. Patient directed to ER for further evaluation. BP 215/102 upon arrival at the ER. IV labetalol and patient's nighttime irbesartan administered at the ER. Medical History as above Surgical History : Knee surgeries, cholecystectomy, tonsillectomy, hysterectomy Family History : Heart disease, RA Personal/Social history : Non-smoker, occasional EtOH intake, retired [employer] employee Allergies Allergy/AdvReac Type Severity Reaction Status Date / Time aspirin Allergy Severe ANAPHYLAXIS Verified 05/20/21 18:17 duloxetine [From Cymbalta] Allergy Rash Verified 05/20/21 18:17 Home Medications Medication Instructions Recorded Confirmed Type brimonidine 0.2 %-timolol 0.5 % 1 drp OPB DAILY 11/07/17 05/20/21 History eye drops (Combigan) cyanocobalamin (vitamin B-12) 1,000 mcg PO HS 11/07/17 05/20/21 History 1,000 mcg tablet (Vitamin B-12) magnesium 250 mg tablet 500 mg PO HS 11/07/17 05/20/21 History nifedipine 60 mg tablet,extended 60 mg PO QAM 11/07/17 05/20/21 History release 24 hr (Procardia XL) potassium chloride 20 mEq 20 meq PO QAM 11/07/17 05/20/21 History tablet,extended release travoprost 0.004 % eye drops 1 drp OPB HS 11/07/17 05/20/21 History (Travatan Z) metoprolol succinate 100 mg 100 mg PO QAM 08/12/18 05/20/21 History tablet,extended release 24 hr irbesartan 150 mg tablet (Avapro) 150 mg PO HS 07/29/19 05/20/21 History nvokfpewfc-skqnhbmtccxig-hysdbvej 1 tab PO Q4H PRN 11/18/20 05/20/21 History 50 mg-325 mg-40 mg tablet cholecalciferol (vitamin D3) 50 50 mcg PO DAILY 11/18/20 05/20/21 History mcg (2,000 unit) tablet (Vitamin D3) dextromethorphan-guaifenesin 10 1 tab-cap PO Q8H PRN 11/18/20 05/20/21 History mg-200 mg capsule (Coricidin HBP Chest Congestion-Cough) hydrocodone 5 mg-acetaminophen 325 1 tab PO DAILY PRN 11/18/20 05/20/21 History mg tablet levothyroxine 75 mcg tablet 75 mcg PO DAILYBB 11/18/20 05/20/21 History lorazepam 0.5 mg tablet 0.5 mg PO DAILY PRN 11/18/20 05/20/21 History pantoprazole 40 mg tablet,delayed 40 mg PO DAILY 11/18/20 05/20/21 History release tizanidine 2 mg tablet 2 mg PO DAILY PRN 11/18/20 05/20/21 History gabapentin 300 mg capsule 300 mg PO TID cap 04/05/21 05/20/21 History nifedipine 90 mg tablet,extended 90 mg PO DAILY 05/20/21 05/20/21 History release 24 hr Past Med/Surg History Medical History Anxiety CKD (chronic kidney disease), stage III Depression Glaucoma Herniated lumbar disc without myelopathy Left central disc herniation at L5-S1 High cholesterol Hypertension Hypothyroidism Lumbar radiculopathy Neuropathy FEET Osteoarthritis Restless leg syndrome Rheumatoid arthritis FOLLOWS DR. TREVINO Rotator cuff tear, left Spinal stenosis, lumbar region with neurogenic claudication Surgical History History of carpal tunnel release RIGHT HAND History of total bilateral knee replacement (TKR) Hx laparoscopic cholecystectomy Hx of arthroscopy RIGHT KNEE (MENISCUS) Hx of hysterectomy Hx of tonsillectomy Family History Mother Family history of reaction to anesthesia SLOW TO AWAKEN Social History Smoking Status: Never smoker Second Hand Exposure: No; Do You Dip or Chew Tobacco: No; Tobacco Cessation Education Requested by Patient: No Hx Alcohol Use: Yes Alcohol type: other Hx Substance Use: No Preferred Language: Thai Communication Ability: Effective Visual Impairment: No Limitations Tax Accounting Manager Required: No Beliefs That Will Affect Care: None Current Living Situation: Alone Other Information That Helps Us Care for You: No Feels Safe at Home: Yes Safety Concerns: Feels Safe At This Time Assistive Devices: Cane and Glasses Review of Systems Review of Systems: As per HPI, all 10 systems reviewed, all other ROS negative Physical Exam Physical Exam: GENERAL: Comfortable, anxious, obese, looks younger for stated age, no respiratory distress SKIN: Pallor, warm HEENT: Pale palpebral conjunctivae, no ptosis, dry buccal mucosa NECK : Supple, short neck, no tenderness CHEST : CTA, no tenderness HEART : RRR, no obvious murmurs ABDOMEN: Some distention, nontender EXTREMITIES : Minimal LE swelling, no LE tenderness, no other conspicuous deformities noted NEUROLOGIC : Coherent, no facial asymmetry, no other gross focality Results & Data Results & Data ([facility]) Vital Signs (Past 12 Hours) Vital Signs Temp Pulse Resp BP BP Pulse Ox 05/20/21 20:30 85 20 250/102 H 05/20/21 20:17 81 20 241/112 H 05/20/21 20:15 79 15 174/81 H 05/20/21 19:45 78 18 177/80 H 05/20/21 19:21 77 20 202/124 H 97 05/20/21 19:15 74 16 186/86 H 98 05/20/21 19:03 77 18 184/89 H 97 05/20/21 18:45 75 17 207/91 H 96 05/20/21 18:15 235/106 H 05/20/21 18:03 36.1 C L 82 20 215/102 H 98 Laboratory Results Laboratory Results WBC 8.55 K/uL (4.8-10.8) 05/20/21 18:24 RBC 3.83 M/uL (4.2-5.4) L 05/20/21 18:24 Hgb 11.5 g/dL (12.0-16.0) L 05/20/21 18:24 Hct 35.5 % (37-47) L 05/20/21 18:24 MCV 92.7 fL (80-100) 05/20/21 18:24 MCH 30.0 pg (25-34) 05/20/21 18:24 MCHC 32.4 g/dL (32-36) 05/20/21 18:24 RDW Std Deviation 52.0 fL (36.4-46.3) H 05/20/21 18:24 RDW Coeff of Mario 15.4 % (11.5-14.5) H 05/20/21 18:24 Plt Count 321 K/uL (130-400) 05/20/21 18:24 MPV 9.5 fL (7.4-10.4) 05/20/21 18:24 Immature Gran % (Auto) 0.2 % 05/20/21 18:24 Neut % (Auto) 70.5 % 05/20/21 18:24 Lymph % (Auto) 15.9 % 05/20/21 18:24 Rosebud % (Auto) 11.8 % 05/20/21 18:24 Eos % (Auto) 1.2 % 05/20/21 18:24 Baso % (Auto) 0.4 % 05/20/21 18:24 Neut # (Auto) 6.03 K/uL (1.4-6.5) 05/20/21 18:24 Lymph # (Auto) 1.36 K/uL (1.2-3.4) 05/20/21 18:24 Rosebud # (Auto) 1.01 K/uL (0.11-0.59) H 05/20/21 18:24 Eos # (Auto) 0.10 K/uL (0-0.5) 05/20/21 18:24 Baso # (Auto) 0.03 K/uL (0-0.2) 05/20/21 18:24 Immature Gran # (Auto) 0.02 K/uL (0.00-0.02) 05/20/21 18:24 Sodium 141 mmol/L (136-145) 05/20/21 18:24 Potassium 4.0 mmol/L (3.5-5.1) 05/20/21 18:24 Chloride 109 mmol/L (98-107) H 05/20/21 18:24 Carbon Dioxide 22 mmol/L (21-32) 05/20/21 18:24 Anion Gap 10 (3-11) 05/20/21 18:24 BUN 30 mg/dl (6-23) H 05/20/21 18:24 Creatinine 1.13 mg/dl (0.6-1.2) 05/20/21 18:24 Est Cr Clr Drug Dosing Not Reportable 05/20/21 18:24 Est GFR ( Amer) 53.9 ml/min 05/20/21 18:24 Est GFR (Non-Af Amer) 46.5 ml/min 05/20/21 18:24 BUN/Creatinine Ratio 26.5 (10-20) H 05/20/21 18:24 Glucose 124 mg/dl (70-99(Fasting)) H 05/20/21 18:24 Calcium 8.1 mg/dl (8.5-10.1) L 05/20/21 18:24 Magnesium 2.2 mg/dl (1.7-2.4) 05/20/21 18:24 Total Bilirubin 0.5 mg/dl (0.2-1.0) 05/20/21 18:24 AST 19 U/L (13-39) 05/20/21 18:24 ALT 17 U/L (7-52) 05/20/21 18:24 Alkaline Phosphatase 81 U/L (34-104) 05/20/21 18:24 Troponin I 0.06 ng/ml (0-0.04) H* 05/20/21 18:24 Total Protein 6.9 gm/dl (6.0-8.3) 05/20/21 18:24 Albumin 4.2 gm/dl (3.4-5.0) 05/20/21 18:24 Globulin 2.7 gm/dl (2.5-4.0) 05/20/21 18:24 Albumin/Globulin Ratio 1.6 (0.9-2) 05/20/21 18:24 TSH 0.219 uIu/ml (0.300-4.500) L 05/20/21 18:24 SARS-CoV-2, RNA, NAAT NEGATIVE (NEGATIVE) 05/20/21 19:21 Impressions Chest X-Ray 05/20/21 18:26 XR chest 1V portable HISTORY: 80 years-old Female Hypertension acute hypertension COMPARISON: Chest radiograph 11/18/2020 TECHNIQUE: Portable AP view of the chest FINDINGS: Cardiac silhouette is enlarged. Eventration of the right hemidiaphragm. Mild subsegmental bibasilar atelectasis. No pneumothorax, pleural effusion, lobar airspace consolidation or overt pulmonary edema. Subacute to chronic displaced and angulated distal right clavicular fracture appears unchanged. Degenerative changes of the shoulders and spine. IMPRESSION: No acute process. ACT 112: Negative or not required by law. The above report was generated using voice recognition software. It may contain grammatical, syntax or spelling errors. Electronically signed by: Nic Winters M.D. 05/20/2021 6:39 PM Diagnostic Findings EKG as per my interpretation: Rate 70, LAD, LAFB, LAE, LVH, negative ischemia
[2021-05-20] MEDS ORDERED: IRBESARTAN 150 MG TAB PO STA (20:59)
[2021-05-20 21:06] LABS: Appearance Urine Clear (Clear); Bilirubin Urine Negative (Negative); Blood Urine Negative (Negative); Color Urine Yellow; Glucose Urine UA Negative (Negative); Ketones Urine Negative (Negative); Leukocyte Esterase Urine Negative (Negative); Nitrite Urine Negative (Negative); Protein Urine Negative (Negative); Urobilinogen Urine Negative (Negative); pH Urine 5.5 (4.5-7.5)
[2021-05-20 21:19] LABS: T4 Free Thyroxine 0.78 ng/dl (0.61-1.60)
[2021-05-20 21:40] LABS: Partial Thromboplastin Ratio 0.8; Partial Thromboplastin Time 21.6 Seconds (21.0-31.0)
[2021-05-20] MEDS ORDERED: LORazepam 0.5 MG TAB PO STA (21:41)
[2021-05-20] MEDS ORDERED: LORazepam 0.5 MG TAB PO PRN (22:39)
[2021-05-20] MEDS ORDERED: PROMETHAZINE HCL 12.5 MG in SODIUM CHLORIDE 0.9% 50 ML IV PRN (22:39)
[2021-05-20] MEDS ORDERED: NITROGLYCERIN SL 0.4 MG/TAB TAB SL PRN (22:39)
[2021-05-20] MEDS ORDERED: ACETAMINOPHEN 325 MG TAB PO PRN (22:39)
[2021-05-20] MEDS: oxyCODONE HCL IR 5 MG TAB (IMMEDIATE RELEASE) PO PRN (23:41)
[2021-05-20] MEDS: GABAPENTIN 300 MG CAP PO SCH (23:43)
[2021-05-20] MEDS: tiZANidine HCL 4 MG TABLET PO PRN (23:44)
[2021-05-21 05:50] LABS: Basophils # (auto) 0.02 K/uL (0-0.2); Basophils % (auto) 0.3 %; Eosinophils # (auto) 0.11 K/uL (0-0.5); Eosinophils % (auto) 1.5 %; Hematocrit (blood only) 30.2 % (37-47); Hemoglobin 9.5 g/dL (12.0-16.0); Immature Granulocytes # (auto) 0.02 K/uL (0.00-0.02); Immature Granulocytes % (auto) 0.3 %; Lymphocytes # (auto) 1.49 K/uL (1.2-3.4); Lymphocytes % (auto) 20.3 %; Mean Corpuscular Hemoglobin 29.3 pg (25-34); Mean Corpuscular Hgb Conc 31.5 g/dL (32-36); Mean Corpuscular Volume 93.2 fL (80-100); Monocytes # (auto) 0.97 K/uL (0.11-0.59); Monocytes % (auto) 13.2 %; Neutrophils # (auto) 4.73 K/uL (1.4-6.5); Neutrophils % (auto) 64.4 %; Platelet Count 266 K/uL (130-400); RDW Coefficient of Variation 15.4 % (11.5-14.5); RDW Standard Deviation 52.5 fL (36.4-46.3); Red Blood Count 3.24 M/uL (4.2-5.4); White Blood Count 7.34 K/uL (4.8-10.8)
[2021-05-21] MEDS: LEVOTHYROXINE SODIUM 75 MCG TABLET PO SCH (05:52)
[2021-05-21 06:20] LABS: BUN Creatinine Ratio 25.2 (10-20); Calcium 8.8 mg/dl (8.5-10.1); Creatinine Clr Calc Pharmacy 44.7 ml/min; Est GFR (African American) 57.6 ml/min; Est GFR (Non-African American) 49.7 ml/min; Potassium 3.9 mmol/L (3.5-5.1)
--- NOTE | 2021-05-21 08:16 | Electrocardiogram Report ---
Test Reason : Blood Pressure : / mmHG Vent. Rate : 071 BPM Atrial Rate : 071 BPM P-R Int : 138 ms QRS Dur : 084 ms QT Int : 390 ms P-R-T Axes : 035 -07 068 degrees QTc Int : 423 ms Normal sinus rhythm Left atrial enlargement Left ventricular hypertrophy Abnormal ECG When compared with ECG of 18-NOV-2020 11:04, No significant change Confirmed by Saul Vidal ([id number] on 05/21/2021 8:16:13 AM Referred By: REFERRED SELF Confirmed By:Saul Vidal
[2021-05-21] MEDS: ENOXAPARIN INJ 40 MG/0.4 ML SYR SQ SCH (08:31)
[2021-05-21] MEDS: GABAPENTIN 300 MG CAP PO SCH ×3 (08:32→19:59)
[2021-05-21] MEDS: METOPROLOL SUCC 50MG EXT REL TAB PO SCH (08:33)
[2021-05-21] MEDS: NIFEdipine EXTENDED REL 30 MG TABCR PO SCH (08:33)
[2021-05-21] MEDS: predniSONE 5 MG TAB PO SCH (08:34)
[2021-05-21] MEDS: PANTOprazole 40 MG TAB PO SCH (08:34)
--- NOTE | 2021-05-21 13:22 | Psychiatric Consultation ---
Date of Consultation May 21, 2021 Impression / Recommendations Impression 80 yo female with anxiety at baseline, increase in isolation during COVID, attributes most depressive like symptoms to pain and declines therapy or retrial of medication. (1) Anxiety: as per previous consults, prn Ativan is less than ideal given age and fall risk, particularly if taken in combo with opioid but she is aware of risks and doesn't opt for other treatment so defer to outpatient prescriber likely best approach to engage in therapy would be a multidisciplinary pain clinic. Psych History Identifying Data Jossy is a 80 yo female admit on for hypertensive urgency. Consult is by hospitalist service for anxiety. Chief Complaint "yeah I get lonely and worry about my cats". History of Present Illness Patient has previously seen by consultation service in 2018 and most recently 11/2008. She is clear that medications other than Ativan don't really help very much and that she is not interested in therapy. She attributes most of her adjustment issues to ongoing need for pain clinic. She previously reported taking Ativan very rarely and it does appear that only gets a refill about once a year. She is aware of risks in combination with Oxycodone. There is a bear that wanders onto her property and she gets overwhelmed with how to deal with things if the bear does damage. She also worries about her pets, at one point owning over a dozen cats. She reported that her fatigue and lack of interest was worse prior to hypothyroid dx. She did not complete a full PHQ-9 with the liaison but she clearly denies suicidal ideation and any symptoms she would endorse can be attributed to pain. Past Psychiatric History Outpatient Services: none Previous Psych Admissions: denied History of Previous Suicide Attempt: No Past Medication Trials: Lexapro, Prozac, trazodone, Effexor XR, Ativan, gabapentin (pain and anxiety), Cymbalta (allergy, primarily for pain). Allergies Allergy/AdvReac Type Severity Reaction Status Date / Time aspirin Allergy Severe ANAPHYLAXIS Verified 05/20/21 18:17 duloxetine [From Cymbalta] Allergy Rash Verified 05/20/21 18:17 Home Medications Medication Instructions Recorded Confirmed Type brimonidine 0.2 %-timolol 0.5 % 1 drp OPB DAILY 11/07/17 05/20/21 History eye drops (Combigan) cyanocobalamin (vitamin B-12) 1,000 mcg PO HS 11/07/17 05/20/21 History 1,000 mcg tablet (Vitamin B-12) magnesium 250 mg tablet 500 mg PO HS 11/07/17 05/20/21 History potassium chloride 20 mEq 20 meq PO QAM 11/07/17 05/20/21 History tablet,extended release travoprost 0.004 % eye drops 1 drp OPB HS 11/07/17 05/20/21 History (Travatan Z) metoprolol succinate 100 mg 100 mg PO QAM 08/12/18 05/20/21 History tablet,extended release 24 hr irbesartan 150 mg tablet (Avapro) 150 mg PO HS 07/29/19 05/20/21 History clteadzerk-wozykqvmwivkn-kcphdhkl 1 tab PO Q4H PRN 11/18/20 05/20/21 History 50 mg-325 mg-40 mg tablet cholecalciferol (vitamin D3) 50 50 mcg PO DAILY 11/18/20 05/20/21 History mcg (2,000 unit) tablet (Vitamin D3) dextromethorphan-guaifenesin 10 1 tab-cap PO Q8H PRN 11/18/20 05/20/21 History mg-200 mg capsule (Coricidin HBP Chest Congestion-Cough) hydrocodone 5 mg-acetaminophen 325 1 tab PO DAILY PRN 11/18/20 05/20/21 History mg tablet levothyroxine 75 mcg tablet 75 mcg PO DAILYBB 11/18/20 05/20/21 History lorazepam 0.5 mg tablet 0.5 mg PO DAILY PRN 11/18/20 05/20/21 History pantoprazole 40 mg tablet,delayed 40 mg PO DAILY 11/18/20 05/20/21 History release tizanidine 2 mg tablet 2 mg PO DAILY PRN 11/18/20 05/20/21 History gabapentin 300 mg capsule 300 mg PO TID cap 04/05/21 05/20/21 History nifedipine 90 mg tablet,extended 90 mg PO DAILY 05/20/21 05/20/21 History release 24 hr prednisone 5 mg PO DAILY 05/21/21 05/21/21 History Personal History Highest Grade 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 TREVINO Rotator cuff tear, left Spinal stenosis, lumbar region with neurogenic claudication Surgical History History of carpal tunnel release RIGHT HAND History of total bilateral knee replacement (TKR) Hx laparoscopic cholecystectomy Hx of arthroscopy RIGHT KNEE (MENISCUS) Hx of hysterectomy Hx of tonsillectomy Family History Mother Family history of reaction to anesthesia SLOW TO AWAKEN Social History Smoking Status: Never smoker Second Hand Exposure: No; Do You Dip or Chew Tobacco: No; Tobacco Cessation Education Requested by Patient: No Hx Alcohol Use: Yes Alcohol type: other Hx Substance Use: No Preferred Language: Senegalese Communication Ability: Effective Visual Impairment: No Limitations Green Building Design Specialist Required: No Beliefs That Will Affect Care: None Current Living Situation: Alone Other Information That Helps Us Care for You: No Feels Safe at Home: Yes Safety Concerns: Feels Safe At This Time Assistive Devices: Cane and Glasses Physical Exam Psychiatric: Orientation: alert and oriented x 3 Apperance: appropriately groomed Eye Contact: good eye contact Motor Behavior: no abnormal motor movements Speech: normal rate/rhythm/volume of speech Affect: euthymic affect Mood: no depressed mood Thought Process: goal directed thought process Thought Content: reality based without delusions Suicidal Thoughts: denies suicidal thoughts Homicidal Thoughts: denies homicidal thoughts Hallucinations: no auditory hallucinations and no visual hallucinations Cognition: attention grossly intact and language grossly intact Estimated Intelligence: consistent with education level Vital Signs (Past 24 Hours): Last Vital Signs Temp 36.8 C 05/21/21 11:00 Pulse 70 05/21/21 11:00 Resp 16 05/21/21 11:00 BP 164/79 H 05/21/21 11:00 Pulse Ox 96 05/21/21 11:00 Review of Systems All systems reviewed & are unremarkable except as noted in HPI & below Results & Data (PSY) Laboratory Results 05/21/21 05/21/21 05/20/21 Range/Units 05:21 05:21 21:21 WBC 7.34 (4.8-10.8) K/uL RBC 3.24 L (4.2-5.4) M/uL Hgb 9.5 L (12.0-16.0) g/dL Hct 30.2 L (37-47) % MCV 93.2 (80-100) fL MCH 29.3 (25-34) pg MCHC 31.5 L (32-36) g/dL RDW Std Deviation 52.5 H (36.4-46.3) fL RDW Coeff of Mario 15.4 H (11.5-14.5) % Plt Count 266 (130-400) K/uL MPV 9.0 (7.4-10.4) fL Immature Gran % (Auto) 0.3 % Neut % (Auto) 64.4 % Lymph % (Auto) 20.3 % [place] % (Auto) 13.2 % Eos % (Auto) 1.5 % Baso % (Auto) 0.3 % Neut # (Auto) 4.73 (1.4-6.5) K/uL Lymph # (Auto) 1.49 (1.2-3.4) K/uL [place] # (Auto) 0.97 H (0.11-0.59) K/uL Eos # (Auto) 0.11 (0-0.5) K/uL Baso # (Auto) 0.02 (0-0.2) K/uL Immature Gran # (Auto) 0.02 (0.00-0.02) K/uL APTT (21.0-31.0) Seconds PTT Ratio Sodium 142 (136-145) mmol/L Potassium 3.9 (3.5-5.1) mmol/L Chloride 111 H (98-107) mmol/L Carbon Dioxide 26 (21-32) mmol/L Anion Gap 5 (3-11) BUN 27 H (6-23) mg/dl Creatinine 1.07 (0.6-1.2) mg/dl Est Cr Clr Drug Dosing 44.7 Est GFR ( Amer) 57.6 ml/min Est GFR (Non-Af Amer) 49.7 ml/min BUN/Creatinine Ratio 25.2 H (10-20) Glucose 85 (70-99(Fasting)) mg/dl Calcium 8.8 (8.5-10.1) mg/dl Magnesium (1.7-2.4) mg/dl Total Bilirubin (0.2-1.0) mg/dl AST (13-39) U/L ALT (7-52) U/L Alkaline Phosphatase (34-104) U/L Troponin I 0.05 H* (0-0.04) ng/ml Total Protein (6.0-8.3) gm/dl Albumin (3.4-5.0) gm/dl Globulin (2.5-4.0) gm/dl Albumin/Globulin Ratio (0.9-2) TSH (0.300-4.500) uIu/ml Free T4 (0.61-1.60) ng/dl Urine Color Urine Appearance (Clear) Urine pH (4.5-7.5) Ur Specific [place] (1.000-1.030) Urine Protein (Negative) Urine Glucose (UA) (Negative) Urine Ketones (Negative) Urine Blood (Negative) Urine Nitrite (Negative) Urine Bilirubin (Negative) Urine Urobilinogen (Negative) Ur Leukocyte Esterase (Negative) SARS-CoV-2, RNA, NAAT (NEGATIVE) 05/20/21 05/20/21 05/20/21 Range/Units 21:21 20:30 19:21 WBC (4.8-10.8) K/uL RBC (4.2-5.4) M/uL Hgb (12.0-16.0) g/dL Hct (37-47) % MCV (80-100) fL MCH (25-34) pg MCHC (32-36) g/dL RDW Std Deviation (36.4-46.3) fL RDW Coeff of Mario (11.5-14.5) % Plt Count (130-400) K/uL MPV (7.4-10.4) fL Immature Gran % (Auto) % Neut % (Auto) % Lymph % (Auto) % [place] % (Auto) % Eos % (Auto) % Baso % (Auto) % Neut # (Auto) (1.4-6.5) K/uL Lymph # (Auto) (1.2-3.4) K/uL [place] # (Auto) (0.11-0.59) K/uL Eos # (Auto) (0-0.5) K/uL Baso # (Auto) (0-0.2) K/uL Immature Gran # (Auto) (0.00-0.02) K/uL APTT 21.6 (21.0-31.0) Seconds PTT Ratio 0.8 Sodium (136-145) mmol/L Potassium (3.5-5.1) mmol/L Chloride (98-107) mmol/L Carbon Dioxide (21-32) mmol/L Anion Gap (3-11) BUN (6-23) mg/dl Creatinine (0.6-1.2) mg/dl Est Cr Clr Drug Dosing Est GFR ( Amer) ml/min Est GFR (Non-Af Amer) ml/min BUN/Creatinine Ratio (10-20) Glucose (70-99(Fasting)) mg/dl Calcium (8.5-10.1) mg/dl Magnesium (1.7-2.4) mg/dl Total Bilirubin (0.2-1.0) mg/dl AST (13-39) U/L ALT (7-52) U/L Alkaline Phosphatase (34-104) U/L Troponin I (0-0.04) ng/ml Total Protein (6.0-8.3) gm/dl Albumin (3.4-5.0) gm/dl Globulin (2.5-4.0) gm/dl Albumin/Globulin Ratio (0.9-2) TSH (0.300-4.500) uIu/ml Free T4 (0.61-1.60) ng/dl Urine Color Yellow Urine Appearance Clear (Clear) Urine pH 5.5 (4.5-7.5) Ur Specific [place] 1.020 (1.000-1.030) Urine Protein Negative (Negative) Urine Glucose (UA) Negative (Negative) Urine Ketones Negative (Negative) Urine Blood Negative (Negative) Urine Nitrite Negative (Negative) Urine Bilirubin Negative (Negative) Urine Urobilinogen Negative (Negative) Ur Leukocyte Esterase Negative (Negative) SARS-CoV-2, RNA, NAAT NEGATIVE (NEGATIVE) 0305/20/21 05/20/21 Range/Units 18:24 18:24 18:24 WBC 8.55 (4.8-10.8) K/uL RBC 3.83 L (4.2-5.4) M/uL Hgb 11.5 L (12.0-16.0) g/dL Hct 35.5 L (37-47) % MCV 92.7 (80-100) fL MCH 30.0 (25-34) pg MCHC 32.4 (32-36) g/dL RDW Std Deviation 52.0 H (36.4-46.3) fL RDW Coeff of Mario 15.4 H (11.5-14.5) % Plt Count 321 (130-400) K/uL MPV 9.5 (7.4-10.4) fL Immature Gran % (Auto) 0.2 % Neut % (Auto) 70.5 % Lymph % (Auto) 15.9 % [place] % (Auto) 11.8 % Eos % (Auto) 1.2 % Baso % (Auto) 0.4 % Neut # (Auto) 6.03 (1.4-6.5) K/uL Lymph # (Auto) 1.36 (1.2-3.4) K/uL [place] # (Auto) 1.01 H (0.11-0.59) K/uL Eos # (Auto) 0.10 (0-0.5) K/uL Baso # (Auto) 0.03 (0-0.2) K/uL Immature Gran # (Auto) 0.02 (0.00-0.02) K/uL APTT (21.0-31.0) Seconds PTT Ratio Sodium 141 (136-145) mmol/L Potassium 4.0 (3.5-5.1) mmol/L Chloride 109 H (98-107) mmol/L Carbon Dioxide 22 (21-32) mmol/L Anion Gap 10 (3-11) BUN 30 H (6-23) mg/dl Creatinine 1.13 (0.6-1.2) mg/dl Est Cr Clr Drug Dosing Not Reportable Est GFR ( Amer) 53.9 ml/min Est GFR (Non-Af Amer) 46.5 ml/min BUN/Creatinine Ratio 26.5 H (10-20) Glucose 124 H (70-99(Fasting)) mg/dl Calcium 8.1 L (8.5-10.1) mg/dl Magnesium 2.2 (1.7-2.4) mg/dl Total Bilirubin 0.5 (0.2-1.0) mg/dl AST 19 (13-39) U/L ALT 17 (7-52) U/L Alkaline Phosphatase 81 (34-104) U/L Troponin I 0.06 H* (0-0.04) ng/ml Total Protein 6.9 (6.0-8.3) gm/dl Albumin 4.2 (3.4-5.0) gm/dl Globulin 2.7 (2.5-4.0) gm/dl Albumin/Globulin Ratio 1.6 (0.9-2) TSH 0.219 L (0.300-4.500) uIu/ml Free T4 0.78 (0.61-1.60) ng/dl Urine Color Urine Appearance (Clear) Urine pH (4.5-7.5) Ur Specific [place] (1.000-1.030) Urine Protein (Negative) Urine Glucose (UA) (Negative) Urine Ketones (Negative) Urine Blood (Negative) Urine Nitrite (Negative) Urine Bilirubin (Negative) Urine Urobilinogen (Negative) Ur Leukocyte Esterase (Negative) SARS-CoV-2, RNA, NAAT (NEGATIVE) Medications Administered Enoxaparin Sodium (Enoxaparin Inj 40 Mg/0.4 Ml Syr) 40 mg SQ QAM [facility] Stop: 06/20/21 08:59 Last Admin: 05/21/21 08:31 Dose: 40 mg Documented by: [id number] Gabapentin (Gabapentin 300 Mg Cap) 300 mg PO TID [facility] Stop: 06/19/21 22:38 Last Admin: 05/21/21 08:32 Dose: 300 mg Documented by: [id number] Admin: 05/20/21 23:43 Dose: 300 mg Documented by: [id number] Levothyroxine Sodium (Levothyroxine Sodium 75 Mcg Tablet) 75 mcg PO DAILYBB [facility] Stop: 06/20/21 06:29 Last Admin: 05/21/21 05:52 Dose: 75 mcg Documented by: [id number] Metoprolol Succinate (Metoprolol Succ 50mg Ext Rel Tab) 100 mg PO QAM [facility] Stop: 06/20/21 08:59 Last Admin: 05/21/21 08:33 Dose: 100 mg Documented by: [id number] Miscellaneous (Combigan~Order Awaiting Action) 1 ea N/A QS [facility] Stop: 06/20/21 00:00 Last Admin: 05/21/21 00:11 Dose: Not Given Documented by: [id number] Nifedipine (Nifedipine Extended Rel 30 Mg Tabcr) 90 mg PO DAILY [facility] Stop: 06/20/21 08:59 Last Admin: 05/21/21 08:33 Dose: 90 mg Documented by: [id number] Oxycodone HCl (Oxycodone Hcl Ir 5 Mg Tab (Immediate Release)) 5 - 10 mg PO QID PRN PRN Reason: Pain Stop: 06/03/21 22:38 Last Admin: 05/20/21 23:41 Dose: 10 mg Documented by: [id number] Pantoprazole Sodium (Pantoprazole 40 Mg Tab) 40 mg PO DAILY [facility] Stop: 06/20/21 08:59 Last Admin: 05/21/21 08:34 Dose: 40 mg Documented by: [id number] Prednisone (Prednisone 5 Mg Tab) 5 mg PO DAILY [facility] Stop: 06/20/21 08:59 Last Admin: 05/21/21 08:34 Dose: 5 mg Documented by: [id number] Tizanidine HCl (Tizanidine Hcl 4 Mg Tablet) 2 mg PO DAILY PRN PRN Reason: Muscle Pain Stop: 06/19/21 22:38 Last Admin: 05/20/21 23:44 Dose: 2 mg Documented by: [id number] Coding Level of Care Code 88137 Inpt Consult Level 2 Diagnoses Anxiety F41.9
--- NOTE | 2021-05-21 15:00 | Hospitalist Progress Note ---
Date of Service May 21, 2021 Assessment & Plan (1) Hypertensive emergency: Plan: Present on admission with elevated BP 235/106 Pt said that she is under alot of stress and anxiety Received IV hydralazine 10mg and labetalol 10mg on admission Irbesartan increased to 300mg HS Continue Nefidipine 90 mg daily Continue monitor BP Elevated troponin Mostly due to Elevated BP Troponin 0.06 then 0.05 EKG showed no acute ischemic changes denies any chest pain ECHO pending Continue monitor Anxiety Not able to control her anxiety Discussed with patient about the risk of taking Ativan prn while on opioid due to high fall risk, altered mental status Psych on board Not interested to start on other alternative maintenance treatment Rheumatoid Arthritis Continue steroid Hypothyroidism TSH 0.219 Will review outpatient record to see if levothyroxine dose was adjusted recently Continue Levothyroxine Check TSH in 4-6 weeks Anemia Hgb 9.5 today denies any active bleeding Continue monitor CBC Chronic Neuropathy On opioid prn ( discussed with patient about the risk while taking Ativan) Continue follow up with pain management DVT prophylaxis. Lovenox subcu Code status Admission and Anticipated Discharge Date Admission Date: May 20, 2021 Subjective Pt was seen and examined for follow up of HTN and anxiety Sitting in chair with no acute distress watching TV Pt said that her BP is better control now Pt said that she is under alot of stress and anxious lately She said that she slept well last night Denies any chest pain, palpitation, dizziness and SOB Review of Systems Review of Systems: All systems reviewed & are unremarkable except as noted in Subjective Physical Exam Physical Exam: General- No acute distress Head- atraumatic Eyes- PERRL, EOMI, ENT- oropharynx clear Neck- supple, no JVD Lungs- clear to auscultation Heart- regular rhythm; no murmur Abdomen- normal bowel sounds, soft, nontender Extremities- no calf tenderness Neuro- alert, oriented x 3; PERRL, EOMI; no facial palsy; no dysarthria Skin- warm & dry Results & Data Results & Data ([facility]) Vital Signs (Past 12 Hours) Vital Signs Temp Pulse Resp BP Pulse Ox 05/21/21 11:00 36.8 C 70 16 164/79 H 96 05/21/21 08:05 36.5 C 77 16 146/78 H 95 05/21/21 04:30 36.5 C 78 18 139/73 97
[2021-05-21] MEDS: tiZANidine HCL 4 MG TABLET PO PRN (20:03)
[2021-05-21] MEDS ORDERED: TRAVOPROST Z 0.004% OPH SOLN 2.5 ML BTL OPB SCH (21:00)
[2021-05-21] MEDS ORDERED: IRBESARTAN 150 MG TAB PO SCH (21:00)
[2021-05-21] MEDS ORDERED: CYANOCOBALAMIN (B-12) 500 MCG TABLET PO SCH (21:00)
[2021-05-21] MEDS: oxyCODONE HCL IR 5 MG TAB (IMMEDIATE RELEASE) PO PRN (21:30)
[2021-05-22] MEDS: LEVOTHYROXINE SODIUM 75 MCG TABLET PO SCH (05:21)
[2021-05-22] MEDS: GABAPENTIN 300 MG CAP PO SCH ×2 (09:01→13:46)
[2021-05-22] MEDS: PANTOprazole 40 MG TAB PO SCH (09:01)
[2021-05-22] MEDS: NIFEdipine EXTENDED REL 30 MG TABCR PO SCH (09:02)
[2021-05-22] MEDS: METOPROLOL SUCC 50MG EXT REL TAB PO SCH (09:02)
[2021-05-22] MEDS: ENOXAPARIN INJ 40 MG/0.4 ML SYR SQ SCH (09:02)
[2021-05-22] MEDS: predniSONE 5 MG TAB PO SCH (09:02)
[2021-05-22] MEDS ORDERED: hydrALAZINE 10 MG TAB PO SCH (13:10)
[2021-05-22] MEDS: oxyCODONE HCL IR 5 MG TAB (IMMEDIATE RELEASE) PO PRN (13:46)
--- NOTE | 2021-05-30 20:09 | Discharge Summary ---
Date of Service May 22, 2021 Admission HPI Per Admitting Provider History obtained from patient, family, and records. 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 Last confinement November 2020 for generalized weakness, ARF on CKD. Patient underwent outpatient L5-S1 epidural steroid injection for lumbar spinal stenosis by [facility] pain management last May 11, 2021. SBP noted to be 200s during procedure. Patient denies chest pain, S OB, headache symptoms. Specialist recommended outpatient PCP evaluation. Patient does not check blood pressure at home. Some stress from some loss of independence the last few months with her inability to drive secondary to worsening feet neuropathy. Admits to being an anxious person. Trying to limit as needed home Ativan intake to instances where her blood pressure is high as per discussion with PCP. Patient unaware of sleep apnea symptoms. Denies OTC NSAID intake. Was taking Sudafed last week for some sinus congestion symptoms which patient stopped after she was told about effects on blood pressure. Patient says she is depressed because she is lonely. Denies suicidality. Leg pain from L SS actually better after last epidural injection. Patient seen at PCPs office last week for BP evaluation. BP noted to be 240/112 at the office. Patient refused ER evaluation. Patient nifedipine dose increased. Patient complied with home medications but held off on daily BP monitoring because she knew it was going to make her blood pressure worse Patient returned to PCPs office for follow-up visit today. BP noted to be 190/100. Patient denies chest pain, S OB, headache symptoms. Patient directed to ER for further evaluation. BP 215/102 upon arrival at the ER. IV labetalol and patient's nighttime irbesartan administered at the ER. Medical History as above Surgical History : Knee surgeries, cholecystectomy, tonsillectomy, hysterectomy Family History : Heart disease, RA Personal/Social history : Non-smoker, occasional EtOH intake, retired [employer] employee Admission Exam Per Admitting Provider GENERAL: Comfortable, anxious, obese, looks younger for stated age, no respiratory distress SKIN: Pallor, warm HEENT: Pale palpebral conjunctivae, no ptosis, dry buccal mucosa NECK : Supple, short neck, no tenderness CHEST : CTA, no tenderness HEART : RRR, no obvious murmurs ABDOMEN: Some distention, nontender EXTREMITIES : Minimal LE swelling, no LE tenderness, no other conspicuous deformities noted NEUROLOGIC : Coherent, no facial asymmetry, no other gross focality Principal Diagnosis Hypertensive emergency Elevated troponin Anxiety Rheumatoid Arthritis Hypothyroidism Anemia Chronic Neuropathy Discharge Exam General- No acute distress Head- atraumatic Eyes- PERRL, EOMI, ENT- oropharynx clear Neck- supple, no JVD Lungs- clear to auscultation Heart- regular rhythm; no murmur Abdomen- normal bowel sounds, soft, nontender Extremities- no calf tenderness Neuro- alert, oriented x 3; PERRL, EOMI; no facial palsy; no dysarthria Skin- warm & dry Discharge Data Allergies Allergy/AdvReac Type Severity Reaction Status Date / Time aspirin Allergy Severe ANAPHYLAXIS Verified 05/20/21 18:17 duloxetine [From Cymbalta] Allergy Rash Verified 05/20/21 18:17 Consultations 05/20/21 19:35 ED Decision to Admit Stat 05/20/21 21:13 Consult Psychiatry Routine Ordered Studies XR chest 1V portable HISTORY: 80 years-old Female Hypertension acute hypertension COMPARISON: Chest radiograph 11/18/2020 TECHNIQUE: Portable AP view of the chest FINDINGS: Cardiac silhouette is enlarged. Eventration of the right hemidiaphragm. Mild subsegmental bibasilar atelectasis. No pneumothorax, pleural effusion, lobar airspace consolidation or overt pulmonary edema. Subacute to chronic displaced and angulated distal right clavicular fracture appears unchanged. Degenerative changes of the shoulders and spine. IMPRESSION: No acute process. ACT 112: Negative or not required by law. The above report was generated using voice recognition software. It may contain grammatical, syntax or spelling errors. Electronically signed by: Nic Winters M.D. 05/20/2021 6:39 PM Dictated:05/20/211837 Transcribed: 05/20/211837 Hospital Course (1) Hypertensive emergency: Present on admission with elevated BP 235/106 Pt said that she is under alot of stress and anxiety Received IV hydralazine 10mg and labetalol 10mg on admission Continue Irbesartan 300mg HS Continue Nefidipine 90 mg daily Will add hydrazine 10mg BID Follow up with PCP to adjust BP meds Elevated troponin Mostly due to Elevated BP Troponin 0.06 then 0.05 EKG showed no acute ischemic changes denies any chest pain ECHO showed no LV wall motion abnormality with EF 65-70% Continue monitor Anxiety Not able to control her anxiety Discussed with patient about the risk of taking Ativan prn while on opioid due to high fall risk, altered mental status Psych on board Not interested to start on other alternative maintenance treatment Rheumatoid Arthritis Continue steroid Hypothyroidism TSH 0.219 Will review outpatient record to see if levothyroxine dose was adjusted recently Continue Levothyroxine Check TSH in 4-6 weeks Anemia Hgb 9.5 today denies any active bleeding Continue monitor CBC Chronic Neuropathy On opioid prn ( discussed with patient about the risk while taking Ativan) Continue follow up with pain management DVT prophylaxis. Lovenox subcu Code status Total Time Total Time Spent Total Time Spent (In Minutes): 35 minutes Discharge Plan Discharge Items Patient Disposition: Home - Self-Care Reason For Visit: HTN CRISIS Discharge Diagnosis: Hypertensive emergency Elevated troponin Anxiety Rheumatoid Arthritis Hypothyroidism Anemia Chronic Neuropathy Activity: Resume your previous activity Non-emergency contact: Primary Care Provider Call non-emergency contact if: you have any medication questions Follow-up/Referrals: Kj Minor MD [Primary Care Provider] - Diet: Heart Healthy Addtl Attending Provider Instructions: Follow up with your primary care provider Dr. Minor within 1 week ( office will contact you tomorrow for the appointment) Continue physical therapy Irbesartan increased to 300mg at night Check BMP in 1 week to monitor your electrolytes and renal function Check TSH in 4 weeks to monitor your thyroid function Continue monitor your blood pressure and bring your blood pressure log to your primary care provider at your next appointment Your provider will adjust your blood pressure medication if needed Please avoid taking any narcotic at the same time with the Ativan due to increase risk of fall, lethargy, drowsiness and confusion Please do not drive or operate any machine while taking Oxycodone fall precaution Pending Studies at Discharge: No Stand-Alone Forms: My Monitoring Division, Smoking Cessation Medications and DC Order Prescriptions: New oxycodone 5 mg Tablet 5 mg PO BID PRN (Reason: pain) Qty: 5 RF: 0 irbesartan [Avapro] 300 mg tablet 300 mg PO HS Qty: 30 RF: 0 hydralazine 10 mg tablet 10 mg PO BID 30 Days Qty: 60 RF: 0 Continued metoprolol succinate 100 mg Tablet Extended Release 24 Hr 100 mg PO QAM RF: 0 cyanocobalamin (vitamin B-12) [Vitamin B-12] 1,000 mcg Tablet 1,000 mcg PO HS RF: 0 travoprost [Travatan Z] 0.004 % Drops 1 drp OPB HS RF: 0 magnesium 250 mg Tablet 500 mg PO HS RF: 0 brimonidine-timolol [Combigan] 0.2-0.5 % Drops 1 drp OPB DAILY RF: 0 potassium chloride 20 mEq Tablet Extended Release 20 meq PO QAM RF: 0 tizanidine 2 mg tablet 2 mg PO DAILY PRN (Reason: Muscle Pain) RF: 0 Coricidin HBP Chest Alfredo-Cough 10-200 mg Capsule 1 tab-cap PO Q8H PRN (Reason: Cold Symptoms) RF: 0 ulomwiqmjx-tsryeeqhxjgfb-jtdb 50-325-40 mg Tablet 1 tab PO Q4H PRN (Reason: sinus headache) RF: 0 levothyroxine 75 mcg tablet 75 mcg PO DAILYBB RF: 0 lorazepam 0.5 mg tablet 0.5 mg PO DAILY PRN (Reason: Anxiety) RF: 0 pantoprazole 40 mg tablet,delayed release (DR/EC) 40 mg PO DAILY RF: 0 cholecalciferol (vitamin D3) [Vitamin D3] 50 mcg (2,000 unit) Tablet 50 mcg PO DAILY RF: 0 gabapentin 300 mg capsule 300 mg PO TID RF: 0 nifedipine 90 mg tablet extended release 24 hr 90 mg PO DAILY RF: 0 prednisone 5 mg 5 mg PO DAILY RF: 0 Discontinued irbesartan [Avapro] 150 mg tablet 150 mg PO HS RF: 0 hydrocodone-acetaminophen 5-325 mg Tablet 1 tab PO DAILY PRN (Reason: Pain) RF: 0 Discharge Orders: Discharge Order (Routine); Ordered 05/22/21 Ordered By: Maria Luisa Burris Admission Data Admit Date/Time: 05/20/21 21:10 Attending Provider: Maria Luisa Burris Admit Provider: Naseem Cadena Primary Care Provider: Kj Minor Other Providers: Yesenia Sanchez Other Interventions: Discharge Summary Assessment (RN) Last Done: 05/22/21 16:12
== END 2021-05-22 17:22 | disposition home or self-care (01) | DRG 305 ==
LOC: ED 17:59 → INTOOBSV 21:10 → 2S 21:10
DX: G62.89 Other specified polyneuropathies; T38.0X5A Adverse effect of glucocorticoids and synthetic analogues, initial encounter; Z88.6 Allergy status to analgesic agent; H40.9 Unspecified glaucoma; Z88.8 Allergy status to other drugs, medicaments and biological substances; I12.9 Hypertensive chronic kidney disease with stage 1 through stage 4 chronic kidney disease, or unspecified chronic kidney disease; E03.9 Hypothyroidism, unspecified; Z60.2 Problems related to living alone; R79.89 Other specified abnormal findings of blood chemistry; F41.9 Anxiety disorder, unspecified; Z79.52 Long term (current) use of systemic steroids; M06.9 Rheumatoid arthritis, unspecified; R73.9 Hyperglycemia, unspecified; Z60.4 Social exclusion and rejection; D64.9 Anemia, unspecified; N18.30 Chronic kidney disease, stage 3 unspecified; M48.061 Spinal stenosis, lumbar region without neurogenic claudication; Z79.899 Other long term (current) drug therapy; Z79.890 Hormone replacement therapy; Z82.61 Family history of arthritis; I16.1 Hypertensive emergency

== ENCOUNTER 2021-09-05 16:08 | Inpatient (IN) ==
--- NOTE | 2021-09-05 16:42 | XRay Report ---
SINGLE VIEW CHEST CLINICAL HISTORY: Atypical chest pain. FINDINGS: An AP, portable, upright chest radiograph is compared to study dated 05/20/2021. The heart i s top normal for projection. There is chronic elevation of the right hemidiaphragm and bibasilar atel ectasis. The lungs and pleural spaces are otherwise clear. No pneumothorax is seen. The skeletal stru ctures are osteopenic. The bony thorax is grossly intact. IMPRESSION: No acute cardiopulmonary abnormality. ACT 112: Negative or not required by law. Electronically signed by: Ulises Yoo M.D. 09/05/2021 4:40 PM
[2021-09-05] MEDS ORDERED: LABETALOL HCL IV 5 MG/ML 20ML IV STA (17:00)
--- NOTE | 2021-09-05 17:03 | Emergency Department Note ---
Impression & Plan HTN (hypertension), Elevated troponin ED Provider Note NAME: LADAN RUELAS AGE: 80 SEX: F : 1940 ARRIVES VIA: Ambulance INFORMANT: Patient ED PROVIDER(S): Austin Rashid DO CHIEF COMPLAINT: Hypertension HPI: Patient is a 80-year-old female with a past medical history of hypertension, fatigue, weakness and depression who presents the ER for elevated blood pressure. Patient has been following with her PCP as well as nephrology. Patient notes that she had physical therapy in her house today checked her blood pressure and it was 230s and consequently called her PCP and was referred in. She did take all of her medications. Recently her lemon picker stopped the spironolactone. Denies any belly pain, nausea, vomiting, or diarrhea. No dysuria, urgency, or frequency. No other exacerbating or remitting factors. ROS: See above HPI for pertinent positives & negatives. A total of 10 systems reviewed and were otherwise negative. PAST MEDICAL HISTORY:See Below PAST SURGICAL HISTORY:See Below FAMILY HISTORY:See Below SOCIAL HISTORY:See Below HOME MEDICATIONS:See Below ALLERGIES:See Below VITALS:See Below PHYSICAL EXAMINATION: GENERAL: Sitting up in bed, alert, well appearing, well nourished, no distress, non-toxic EYE EXAM: normal conjunctiva. PERRL and EOM's grossly intact. OROPHARYNX: no exudate, no erythema, lips, buccal mucosa, and tongue normal and mucous membranes are moist NECK: supple, no nuchal rigidity, no adenopathy, non-tender LUNGS: Clear to auscultation. Normal chest wall mechanics HEART: no murmurs, S1 normal and S2 normal ABDOMEN: abdomen soft, non-tender, normo-active bowel sounds, no masses, no rebound or guarding. UPPER EXTREMITIES: upper extremities are grossly normal. LOWER EXTREMITIES: No pitting edema. NEURO EXAM: Normal sensorium, cranial nerves II-XII grossly intact, normal speech, no gross weakness of arms, no gross weakness of legs. MEDICAL DECISION MAKING: Patient is a 80-year-old female who presents ER with above-stated complaint. IV was established blood work was obtained. Labs show no significant leukocytosis. Mild anemia at 9.8 consistent with previous. BMP with creatinine 1.7 up from baseline of 1.3. LFTs bilirubin was unremarkable. Troponin was detectable at 14.6. Lipase was normal. She denies any chest pain or shortness of breath. COVID was negative. Chest x-ray was unremarkable.EKG was nondiagnostic. Patient is completely asymptomatic. She was given a dose of labetalol and systolic pressures trended down from 2 30-1 50. Again she is asymptomatic. She is updated bedside. Discussed with the hospitalist Salina martinez for further evaluation. Triage Nursing notes reviewed. Limited review of prior medical records performed Vital Signs: reviewed and remarkable for no significant abnormalities Differential diagnosis: Differential diagnoses includes but is not limited to acute coronary syndrome, myocardial infarction, pericarditis, pulmonary embolus, aortic dissection, pneumonia, pneumothorax, musculoskeletal, shingles, esophageal. ER treatment provided: See below Diagnostics interpreted by me: ECG: Sinus rhythm rate of 74 Normal axis T wave version in the septal leads QTC 397 Cardiac Monitoring: An order was placed for continuous cardiac monitoring. The monitor shows a rate of 80 with sinus rhythm. Laboratory studies: As stated above and show below. Imaging studies: Portable AP upright 1 view the chest was unremarkable Consultation(s): As discussed above in MDM Procedures: none Critical Care: None Past Med/Surg History Medical History Anxiety CKD (chronic kidney disease), stage III Depression Glaucoma Herniated lumbar disc without myelopathy Left central disc herniation at L5-S1 High cholesterol Hypertension Hypothyroidism Lumbar radiculopathy Neuropathy FEET Osteoarthritis Restless leg syndrome Rheumatoid arthritis FOLLOWS DR. TREVINO Rotator cuff tear, left Spinal stenosis, lumbar region with neurogenic claudication Surgical History History of carpal tunnel release RIGHT HAND History of total bilateral knee replacement (TKR) Hx laparoscopic cholecystectomy Hx of arthroscopy RIGHT KNEE (MENISCUS) Hx of hysterectomy Hx of tonsillectomy Family History Mother Family history of reaction to anesthesia SLOW TO AWAKEN Social History Smoking Status: Former smoker Second Hand Exposure: No; Hx Alcohol Use: Yes Alcohol type: other Hx Substance Use: No Preferred Language: Sami Communication Ability: Effective Visual Impairment: No Limitations Technical Service Specialist Required: No Beliefs That Will Affect Care: None marital status: Single Current Living Situation: Alone Feels Safe at Home: Yes Assistive Devices: Walker Allergies Allergies Allergy/AdvReac Type Severity Reaction Status Date / Time aspirin Allergy Severe ANAPHYLAXIS Verified 09/05/21 18:53 duloxetine [From Cymbalta] Allergy Rash Verified 09/05/21 18:53 Home Meds Home Medications Medication Instructions Recorded Confirmed brimonidine 0.2 %-timolol 0.5 % 1 drp OPB DAILY 11/07/17 09/05/21 eye drops (Combigan) cyanocobalamin (vitamin B-12) 1,000 mcg PO HS 11/07/17 08/16/21 1,000 mcg tablet (Vitamin B-12) magnesium 250 mg tablet 500 mg PO HS 11/07/17 08/16/21 potassium chloride 20 mEq 20 meq PO QAM 11/07/17 08/16/21 tablet,extended release travoprost 0.004 % eye drops 1 drp OPB HS 11/07/17 08/16/21 (Travatan Z) metoprolol succinate 100 mg 100 mg PO QAM 08/12/18 08/16/21 tablet,extended release 24 hr qqaxhsoduj-mdqsikbaqhvut-gbuiaacc 1 tab PO Q4H PRN 11/18/20 09/05/21 50 mg-325 mg-40 mg tablet cholecalciferol (vitamin D3) 50 50 mcg PO DAILY 11/18/20 08/16/21 mcg (2,000 unit) tablet (Vitamin D3) levothyroxine 75 mcg tablet 75 mcg PO DAILYBB 11/18/20 09/05/21 lorazepam 0.5 mg tablet 0.5 mg PO DAILY PRN 11/18/20 08/16/21 pantoprazole 40 mg tablet,delayed 40 mg PO DAILY 11/18/20 08/16/21 release tizanidine 2 mg tablet 2 mg PO DAILY PRN 11/18/20 08/16/21 nifedipine 90 mg tablet,extended 90 mg PO DAILY 05/20/21 08/16/21 release 24 hr hydrocodone 5 mg-acetaminophen 325 1 tab PO Q8H PRN 06/01/21 08/16/21 mg tablet irbesartan 300 mg tablet (Avapro) 300 mg PO DAILY 06/01/21 08/16/21 hydralazine 10 mg tablet 10 mg PO BID 09/05/21 09/05/21 prednisone 5 mg tablet 5 mg PO DAILY 09/05/21 09/05/21 Previous Rx's Medication Instructions Recorded gabapentin 600 mg tablet 600 mg PO TID #90 tab 06/01/21 Results & Data (ED) Vital Signs Vital Signs - 24 hr 09/05/21 15:58 09/05/21 17:00 09/05/21 17:41 Temperature 36.8 C Temperature Source Oral Pulse Rate 87 76 Pulse Rate from SpO2 Sensor 76 Respiratory Rate 18 15 Blood Pressure 228/91 H Blood Pressure Mean 136 Pulse Oximetry 98 96 Oxygen Delivery Method Room Air Sepsis Recent Fever Within 48 Hours No Sepsis New/Unexplained Change in Mental Status No Sepsis Action Taken by Nursing No Action Required 09/05/21 18:00 09/05/21 18:30 Temperature Temperature Source Pulse Rate 79 78 Pulse Rate from SpO2 Sensor 79 Respiratory Rate 17 16 Blood Pressure 185/90 H 153/81 H Blood Pressure Mean 121 105 Pulse Oximetry 98 Oxygen Delivery Method Sepsis Recent Fever Within 48 Hours Sepsis New/Unexplained Change in Mental Status Sepsis Action Taken by Nursing Laboratory Data Result diagrams: 09/05/21 17:00 09/05/21 17:00 Lab Results 09/05/21 09/05/21 09/05/21 Range/Units 17:00 17:00 18:03 WBC 8.03 (4.8-10.8) K/uL RBC 3.30 L (4.2-5.4) M/uL Hgb 9.8 L (12.0-16.0) g/dL Hct 31.7 L (37-47) % MCV 96.1 (80-100) fL MCH 29.7 (25-34) pg MCHC 30.9 L (32-36) g/dL RDW Std Deviation 55.6 H (36.4-46.3) fL RDW Coeff of Mario 16.0 H (11.5-14.5) % Plt Count 317 (130-400) K/uL MPV 9.4 (7.4-10.4) fL Immature Gran % (Auto) 0.4 % Neut % (Auto) 70.6 % Lymph % (Auto) 15.1 % Campbell % (Auto) 11.6 % Eos % (Auto) 1.9 % Baso % (Auto) 0.4 % Neut # (Auto) 5.68 (1.4-6.5) K/uL Lymph # (Auto) 1.21 (1.2-3.4) K/uL Campbell # (Auto) 0.93 H (0.11-0.59) K/uL Eos # (Auto) 0.15 (0-0.5) K/uL Baso # (Auto) 0.03 (0-0.2) K/uL Immature Gran # (Auto) 0.03 H (0.00-0.02) K/uL Sodium 141 (136-145) mmol/L Potassium 4.1 (3.5-5.1) mmol/L Chloride 110 H (98-107) mmol/L Carbon Dioxide 24 (21-32) mmol/L Anion Gap 7 (3-11) BUN 31 H (6-23) mg/dl Creatinine 1.72 H (0.6-1.2) mg/dl Est Cr Clr Drug Dosing 27.0 ml/min Est GFR ( Amer) 32.4 ml/min Est GFR (Non-Af Amer) 28.0 ml/min BUN/Creatinine Ratio 18.0 (10-20) Glucose 88 (70-99(Fasting)) mg/dl Calcium 8.9 (8.5-10.1) mg/dl Total Bilirubin 0.6 (0.2-1.0) mg/dl AST 17 (13-39) U/L ALT 16 (7-52) U/L Alkaline Phosphatase 63 (34-104) U/L Troponin I High Sens 14.6 H (0-14) pg/ml Total Protein 6.3 (6.0-8.3) gm/dl Albumin 3.9 (3.4-5.0) gm/dl Globulin 2.4 L (2.5-4.0) gm/dl Albumin/Globulin Ratio 1.6 (0.9-2) Lipase 34 (11-82) U/L SARS-CoV-2, RNA, NAAT NEGATIVE (NEGATIVE) Administered Medications Discontinued Medications Labetalol HCl (Labetalol Hcl Iv 5 Mg/Ml 20ml) 10 mg IV NOW STA Stop: 09/05/21 17:01 Last Admin: 09/05/21 17:15 Dose: 10 mg Documented by: [id number] Cosigned by: [id number] Imaging Data Radiologist's Impression: Chest X-Ray 09/05/21 16:16 SINGLE VIEW CHEST CLINICAL HISTORY: Atypical chest pain. FINDINGS: An AP, portable, upright chest radiograph is compared to study dated 05/20/2021. The heart is top normal for projection. There is chronic elevation of the right hemidiaphragm and bibasilar atelectasis. The lungs and pleural spaces are otherwise clear. No pneumothorax is seen. The skeletal structures are osteopenic. The bony thorax is grossly intact. IMPRESSION: No acute cardiopulmonary abnormality. ACT 112: Negative or not required by law. Electronically signed by: Ulises Yoo M.D. 09/05/2021 4:40 PM Discharge Plan Visit Data Chief Complaint: Hypertension ED Provider: Austin Rashid Discharge Problem: HTN (hypertension), Elevated troponin Forms Stand Alone Forms: [facility] Prescriptions Prescriptions: No Action hydrocodone-acetaminophen 5-325 mg tablet 1 tab PO Q8H PRNRF: 0 irbesartan [Avapro] 300 mg tablet 300 mg PO DAILY RF: 0 gabapentin 600 mg tablet 600 mg PO TID Qty: 90 RF: 2 metoprolol succinate 100 mg Tablet Extended Release 24 Hr 100 mg PO QAM RF: 0 cyanocobalamin (vitamin B-12) [Vitamin B-12] 1,000 mcg Tablet 1,000 mcg PO HS RF: 0 travoprost [Travatan Z] 0.004 % Drops 1 drp OPB HS RF: 0 magnesium 250 mg Tablet 500 mg PO HS RF: 0 brimonidine-timolol [Combigan] 0.2-0.5 % Drops 1 drp OPB DAILY RF: 0 potassium chloride 20 mEq Tablet Extended Release 20 meq PO QAM RF: 0 tizanidine 2 mg tablet 2 mg PO DAILY PRN (Reason: Muscle Pain) RF: 0 elvhapctfd-zqdaiyernzajt-fmkf 50-325-40 mg Tablet 1 tab PO Q4H PRN (Reason: sinus headache) RF: 0 levothyroxine 75 mcg tablet 75 mcg PO DAILYBB RF: 0 lorazepam 0.5 mg tablet 0.5 mg PO DAILY PRN (Reason: Anxiety) RF: 0 pantoprazole 40 mg tablet,delayed release (DR/EC) 40 mg PO DAILY RF: 0 cholecalciferol (vitamin D3) [Vitamin D3] 50 mcg (2,000 unit) Tablet 50 mcg PO DAILY RF: 0 nifedipine 90 mg tablet extended release 24 hr 90 mg PO DAILY RF: 0 prednisone 5 mg tablet 5 mg PO DAILY RF: 0 hydralazine 10 mg tablet 10 mg PO BID RF: 0 Referrals Referrals: Kj Minor MD [Primary Care Provider] -
[2021-09-05 17:26] LABS: Basophils # (auto) 0.03 K/uL (0-0.2); Basophils % (auto) 0.4 %; Eosinophils # (auto) 0.15 K/uL (0-0.5); Eosinophils % (auto) 1.9 %; Hematocrit (blood only) 31.7 % (37-47); Hemoglobin 9.8 g/dL (12.0-16.0); Immature Granulocytes # (auto) 0.03 K/uL (0.00-0.02); Immature Granulocytes % (auto) 0.4 %; Lymphocytes # (auto) 1.21 K/uL (1.2-3.4); Lymphocytes % (auto) 15.1 %; Mean Corpuscular Hemoglobin 29.7 pg (25-34); Mean Corpuscular Hgb Conc 30.9 g/dL (32-36); Mean Corpuscular Volume 96.1 fL (80-100); Mean Platelet Volume 9.4 fL (7.4-10.4); Monocytes # (auto) 0.93 K/uL (0.11-0.59); Monocytes % (auto) 11.6 %; Neutrophils # (auto) 5.68 K/uL (1.4-6.5); Neutrophils % (auto) 70.6 %; Platelet Count 317 K/uL (130-400); RDW Standard Deviation 55.6 fL (36.4-46.3); White Blood Count 8.03 K/uL (4.8-10.8)
[2021-09-05 17:59] LABS: Troponin I High Sensitivity 14.6 pg/ml (0-14)
[2021-09-05 18:17] LABS: Potassium 4.1 mmol/L (3.5-5.1)
[2021-09-05 18:21] LABS: Albumin Globulin Ratio 1.6 (0.9-2); Albumin Level 3.9 gm/dl (3.4-5.0); Bilirubin,Total 0.6 mg/dl (0.2-1.0); Calcium 8.9 mg/dl (8.5-10.1); Est GFR (African American) 32.4 ml/min; Globulin 2.4 gm/dl (2.5-4.0); Total Protein 6.3 gm/dl (6.0-8.3)
--- NOTE | 2021-09-05 19:12 | History & Physical Report ---
Date of Service September 05, 2021 Assessment & Plan (1) Hypertensive urgency: Plan: 2/2 recent medication adjustment. She was taking Toprol, nifedipine 60mg and irbesartan last year and blood pressure started rising this year. she was hospitalized in May for this issue, also. It appears blood pressure was improved on the spironolactone, however, with worsening creatinine and drowsiness side effect, this was stopped. Severe HTN resulted. Today improved with labetalol. She reports not wanting to come to the hospital but knew she had to come. This is not likely helping her pressure. She takes intermittent hydrocodone for RA pain and/or neuropathy but no reports that would indicate any clinical withdrawal. She had no recent high doses of prednisone that may have contributed. Denies high salt intake but is not cooking as much because of fatigue--depending on prepared salads (chicken/egg salad), toast/eggs, etc. Cont irbesartan, hydralazine, Toprol XL, nifedipine, and utilize additional antihypertensive agents as needed. She is back up to 180 systolic again now. Will give hydralazine 10mg IV now in the ER. Call MD if SBP>170. Cont to control pain from RA/neuropathy. Consult Nephrology. Low salt diet. (2) Fatigue: Plan: 2/2 HTN vs medication side effects/polypharmacy? Cont plan as above. PT/OT. OF note, patient states that she was benefiting from home PT and was making progress back to her baseline of ambulating with a cane. (3) Hypothyroidism: Plan: chronic, stable, cont current medications. (4) Neuropathy: Plan: chronic, controlled with gabapentin and hydrocodone. Although there was a script of oxycodone given to her by Dr. Yanez, she appears to prefer hydrocodone. (5) DVT prophylaxis: Plan: Heparin Full Code Dispo-to PCU. To home pending stability in her blood pressure over time. Would like to see her fatigue improve and ordered PT/OT [facility] History of Present Illness Chief Complaint: elevated bP Primary Care Provider: Kj Minor MD 80 yo female with RA on chronic prednisone and CKD Stage 3 presents with elevated blood pressure. Patient was placed on spironolactone around July 10 and took a full dose for about 4 weeks, followed by half a dose for another few weeks because it made her tired. On 08/25 she was taken off this for worsening kidney function per nephrology although her BP was better on the spironolactone. After stopping she noted an elevation in BP and then started back on hydralazine around 09/02. Today she presents with even higher BP. Her physical therapist took her BP and found it to be 236/114. She was asymptoma tic. She is having some pain in her feet No chest pain, headache, visual changes, shortness of breath No headache, fevers, chills. diarrhea, abdominal pain No recent meals heavy in salt. Mostly cooks and eats off meals that she cooks, but reports not feeling well enough because she is very fatigued She has been sleeping at night She has been substisting on egg salad/chicken salad sandwiches, potatoes, toast, eggs Fatigue has been worsening over the past two weeks. She doesn't have a home blood pressure cuff but has a friend who comes down and takes it for her; friend is a nurse. She is stressed about her cats who are still outside (there was a bear sighting recently) Allergies Allergy/AdvReac Type Severity Reaction Status Date / Time aspirin Allergy Severe ANAPHYLAXIS Verified 09/05/21 18:53 duloxetine [From Cymbalta] Allergy Rash Verified 09/05/21 18:53 Home Medications Medication Instructions Recorded Confirmed Type brimonidine 0.2 %-timolol 0.5 % 1 drp OPB DAILY 11/07/17 09/05/21 History eye drops (Combigan) cyanocobalamin (vitamin B-12) 1,000 mcg PO HS 11/07/17 09/05/21 History 1,000 mcg tablet (Vitamin B-12) magnesium 250 mg tablet 500 mg PO HS 11/07/17 09/05/21 History potassium chloride 20 mEq 20 meq PO QAM 11/07/17 09/05/21 History tablet,extended release travoprost 0.004 % eye drops 1 drp OPB HS 11/07/17 09/05/21 History (Travatan Z) metoprolol succinate 100 mg 100 mg PO QPM 08/12/18 09/05/21 History tablet,extended release 24 hr mpwvmyempy-cqeeetmvirsvu-iyuuaopd 1 tab PO Q4H PRN 11/18/20 09/05/21 History 50 mg-325 mg-40 mg tablet cholecalciferol (vitamin D3) 50 50 mcg PO DAILY 11/18/20 09/05/21 History mcg (2,000 unit) tablet (Vitamin D3) levothyroxine 75 mcg tablet 75 mcg PO DAILYBB 11/18/20 09/05/21 History pantoprazole 40 mg tablet,delayed 40 mg PO QPM 11/18/20 09/05/21 History release nifedipine 90 mg tablet,extended 90 mg PO QAM 05/20/21 09/05/21 History release 24 hr gabapentin 600 mg tablet 600 mg PO TID #90 tab 06/01/21 09/05/21 Rx hydrocodone 5 mg-acetaminophen 325 1 tab PO Q8H PRN 06/01/21 09/05/21 History mg tablet irbesartan 300 mg tablet (Avapro) 300 mg PO QPM 06/01/21 09/05/21 History hydralazine 10 mg tablet 10 mg PO TID 09/05/21 09/05/21 History leflunomide 20 mg tablet 20 mg PO DAILY 09/05/21 09/05/21 History prednisone 5 mg tablet 5 mg PO QPM 09/05/21 09/05/21 History Past Med/Surg History Medical History Anxiety CKD (chronic kidney disease), stage III Depression Elevated troponin I level Glaucoma Herniated lumbar disc without myelopathy Left central disc herniation at L5-S1 High cholesterol Hypertension Hypertensive emergency Hypothyroidism Lumbar radiculopathy Neuropathy FEET Osteoarthritis Restless leg syndrome Rheumatoid arthritis FOLLOWS DR. YANEZ Rotator cuff tear, left Spinal stenosis, lumbar region with neurogenic claudication Surgical History History of carpal tunnel release RIGHT HAND History of total bilateral knee replacement (TKR) Hx laparoscopic cholecystectomy Hx of arthroscopy RIGHT KNEE (MENISCUS) Hx of hysterectomy Hx of tonsillectomy Family History Mother Family history of reaction to anesthesia SLOW TO AWAKEN Social History Smoking Status: Former smoker Second Hand Exposure: No; Hx Alcohol Use: Yes Alcohol type: other Hx Substance Use: No Preferred Language: Divehi Communication Ability: Effective Visual Impairment: No Limitations Customer Advisor Required: No Beliefs That Will Affect Care: None marital status: Single Current Living Situation: Alone Feels Safe at Home: Yes Assistive Devices: Walker Review of Systems Review of Systems: All systems were reviewed and negative except as indicated on HPI above. Physical Exam Physical Exam: CONSTITUTIONAL: WNWD, vitals as above, generally well- appearing, NAD EYES: pupils are round and equal bilaterally, normal conjunctivae, no scleral icterus ENT: external ear and nose normal, MMM NECK: trachea midline RESPIRATORY: clear to auscultation bilaterally, no crackles, rales or wheezes, normal respiratory effort CARDIOVASCULAR: regular rate and rhythm, S1 and 2 heard without murmurs, gallops or rubs, no JVD, no peripheral edema, CHEST: inspection of chest was normal GASTROINTESTINAL: soft, nontender, ND, no guarding MUSCULOSKELETAL: strength 5/5 throughout, head is normocephalic and atraumatic SKIN: warm and dry NEUROLOGIC: No facial palsy, no dysarthria. CN 2-12 grossly intact, no sensory deficit feet bilaterally, normal cognition, normal speech, no tremor PSYCHIATRIC: alert cooperative and oriented to person, place and time. Euthymic mood, makes good eye contact, language grossly intact, recent and remote memory grossly intact. Results & Data Results & Data ([facility]) Vital Signs (Past 12 Hours) Vital Signs Temp Pulse Resp BP Pulse Ox 09/05/21 18:30 78 16 153/81 H 09/05/21 18:00 79 17 185/90 H 98 09/05/21 17:41 76 15 96 09/05/21 15:58 36.8 C 87 18 228/91 H 98 Laboratory Results Short CBC 09/05/21 Range/Units 17:00 WBC 8.03 (4.8-10.8) K/uL Hgb 9.8 L (12.0-16.0) g/dL Hct 31.7 L (37-47) % Plt Count 317 (130-400) K/uL BMP 09/05/21 17:00 Sodium 141 Potassium 4.1 Chloride 110 H Carbon Dioxide 24 BUN 31 H Creatinine 1.72 H Glucose 88 Calcium 8.9 Liver Function 09/05/21 Range/Units 17:00 Total Bilirubin 0.6 (0.2-1.0) mg/dl AST 17 (13-39) U/L ALT 16 (7-52) U/L Alkaline Phosphatase 63 (34-104) U/L Albumin 3.9 (3.4-5.0) gm/dl Diagnostic Findings Chest X-Ray 09/05/21 16:16 SINGLE VIEW CHEST CLINICAL HISTORY: Atypical chest pain. FINDINGS: An AP, portable, upright chest radiograph is compared to study dated 05/20/2021. The heart is top normal for projection. There is chronic elevation of the right hemidiaphragm and bibasilar atelectasis. The lungs and pleural spaces are otherwise clear. No pneumothorax is seen. The skeletal structures are osteopenic. The bony thorax is grossly intact. IMPRESSION: No acute cardiopulmonary abnormality. ACT 112: Negative or not required by law. Electronically signed by: Ulises Yoo M.D. 09/05/2021 4:40 PM Code Status & VTE Plan VTE Prophylaxis Plan VTE Prophylaxis will be ordered: Yes (1) Fatigue Fatigue type: unspecified Qualified Code(s): R53.83 - Other fatigue
[2021-09-05] MEDS ORDERED: BUTALBITAL/ACETAMIN/CAFFEINE TAB PO PRN (20:07)
[2021-09-05] MEDS ORDERED: hydrALAZINE HCL 20 MG/ML VIAL IV STA (20:17)
[2021-09-05] MEDS ORDERED: METOPROLOL SUCC 50MG EXT REL TAB PO SCH (21:00)
[2021-09-05] MEDS ORDERED: POLYETHYLENE (MIRALAX) 17 GM PACK PO PRN (21:24)
[2021-09-05] MEDS ORDERED: ACETAMINOPHEN 325 MG TAB PO PRN (21:24)
[2021-09-05] MEDS: HYDROCODONE/ACETAMOPHEN 5/325MG TAB PO PRN (21:45)
[2021-09-05] MEDS ORDERED: HEPARIN SOD 5,000 UNIT/0.5 ML VIAL SQ SCH (22:00)
[2021-09-05] MEDS: hydrALAZINE 10 MG TAB PO SCH (22:59)
[2021-09-05] MEDS: TRAVOPROST Z 0.004% OPH SOLN 2.5 ML BTL OPB SCH (22:59)
[2021-09-05] MEDS: IRBESARTAN 150 MG TAB PO SCH (23:00)
[2021-09-05] MEDS: MAGNESIUM OXIDE 400 MG TAB PO SCH (23:02)
[2021-09-05] MEDS: CYANOCOBALAMIN (B-12) 500 MCG TABLET PO SCH (23:02)
[2021-09-05] MEDS: PANTOprazole 40 MG TAB PO SCH (23:02)
[2021-09-05] MEDS: COMBIGAN~ORDER AWAITING ACTION SCH ×2 (23:03→23:53)
[2021-09-05] MEDS: predniSONE 5 MG TAB PO SCH (23:03)
[2021-09-05] MEDS: GABAPENTIN 600 MG TAB PO SCH (23:03)
[2021-09-05] MEDS: HEPARIN SOD 5,000 UNIT/0.5 ML VIAL SQ SCH (23:04)
[2021-09-06 03:17] LABS: Appearance Urine Clear (Clear); Bacteria Urine Automated 4+ (Negative); Bilirubin Urine Negative (Negative); Blood Urine Negative (Negative); Color Urine Yellow; Glucose Urine UA Negative (Negative); Ketones Urine Negative (Negative); Leukocyte Esterase Urine Trace (Negative); Nitrite Urine Positive (Negative); Protein Urine Negative (Negative); RBC Urine Automated 0-4 /hpf (0-4); Specific Gravity Urine 1.015 (1.000-1.030); Urobilinogen Urine Negative (Negative)
[2021-09-06 03:32] LABS: Creatinine Urine Random 107.2 mg/dl; Protein Creatinine Ratio Urine 0.1 (0-0.2); Total Protein Urine Random 11.9 mg/dl (0-11.9)
[2021-09-06] MEDS: HEPARIN SOD 5,000 UNIT/0.5 ML VIAL SQ SCH ×3 (05:20→20:43)
[2021-09-06] MEDS: LEVOTHYROXINE SODIUM 75 MCG TABLET PO SCH (05:21)
[2021-09-06 07:09] LABS: Hemoglobin 9.4 g/dL (12.0-16.0); Mean Corpuscular Hemoglobin 29.7 pg (25-34); Mean Corpuscular Hgb Conc 31.3 g/dL (32-36); Mean Corpuscular Volume 94.6 fL (80-100); Mean Platelet Volume 9.3 fL (7.4-10.4); Platelet Count 267 K/uL (130-400); RDW Coefficient of Variation 15.9 % (11.5-14.5); RDW Standard Deviation 55.4 fL (36.4-46.3); Red Blood Count 3.17 M/uL (4.2-5.4); White Blood Count 6.29 K/uL (4.8-10.8)
[2021-09-06 07:28] LABS: BUN Creatinine Ratio 18.8 (10-20); Calcium 8.5 mg/dl (8.5-10.1); Creatinine Clr Calc Pharmacy 30.9 ml/min; Est GFR (African American) 38.6 ml/min; Est GFR (Non-African American) 33.3 ml/min; Potassium 4.2 mmol/L (3.5-5.1)
[2021-09-06] MEDS: COMBIGAN~ORDER AWAITING ACTION SCH ×2 (07:29→16:02)
[2021-09-06] MEDS: LEFLUNOMIDE 10 MG TAB PO SCH (07:30)
[2021-09-06] MEDS: CHOLECALCIFEROL 1,000 UNITS 25 MCG TAB PO SCH (07:30)
[2021-09-06] MEDS: NIFEdipine EXTENDED REL 30 MG TABCR PO SCH (07:30)
[2021-09-06] MEDS: POTASSIUM CHLORIDE CRTAB 20 MEQ TABCR PO SCH (07:30)
[2021-09-06] MEDS: hydrALAZINE 10 MG TAB PO SCH ×3 (07:31→20:43)
[2021-09-06] MEDS: GABAPENTIN 600 MG TAB PO SCH ×3 (07:31→20:42)
--- NOTE | 2021-09-06 08:22 | Electrocardiogram Report ---
Test Reason : Blood Pressure : / mmHG Vent. Rate : 074 BPM Atrial Rate : 074 BPM P-R Int : 136 ms QRS Dur : 088 ms QT Int : 358 ms P-R-T Axes : 036 -04 073 degrees QTc Int : 397 ms Normal sinus rhythm Left atrial enlargement Left ventricular hypertrophy with repolarization abnormality Abnormal ECG When compared with ECG of 20-MAY-2021 18:34, No significant change Confirmed by Saul Vidal ([id number]) on 09/06/2021 8:22:01 AM Referred By: REFERRED SELF Confirmed By:Saul Vidal
[2021-09-06] MEDS: carvediloL 25 MG TAB PO SCH ×2 (09:42→20:43)
[2021-09-06] MEDS: cefTRIAXone SODIUM 1,000 MG in DEXTROSE 5% 50 ML IV SCH (09:42)
--- NOTE | 2021-09-06 10:41 | Nephrology Consultation ---
Date of Consultation September 06, 2021 Assessment & Plan (1) Hypertensive urgency: Patient with hypertensive urgency due to recent medication changes. Aldactone was recently stopped due to worsening renal function and dizziness. -We will stop Toprol and start Coreg 25 mg twice daily -Continue nifedipine, irbesartan and hydralazine. (2) CKD (chronic kidney disease), stage III: Patient with CKD stage III due to hypertension. Creatinine is 1.49 down from 1.7 yesterday. Electrolytes are stable no signs of volume overload. Continue to monitor renal function daily BMP and avoid nephrotoxins. History of Present Illness Reason for Consultation: Hypertensive urgency Requesting Physician: Helen Barbour MD Attending Physician: Helen Barbour MD History of Present Illness This is a 80-year-old female with history of hypertension for several years, rheumatoid arthritis on prednisone 5 mg daily, hypothyroidism, peripheral neuropathy and CKD stage III was admitted with hypertensive urgency. She follows with my colleague in the renal clinic Dr. Ferrer. She was previously on Aldactone and her blood pressure was well controlled but this was stopped due to dizziness and worsening renal function. Since stopping Aldactone, her blood pressure has been going up and yesterday it was as high as 230/180. In the emergency room she was given labetalol IV and blood pressure is downtrending. At home she is on metoprolol 100, irbesartan, nifedipine and most recently hydralazine 10 mg 3 times daily which was started on Sunday. She feels well today denies any shortness of breath. Main complaint is numbness in the feet. She has right hip pain and back pain and has had steroid injections in the back without relief. She denies high salt diet. No NSAIDs. Allergies Allergy/AdvReac Type Severity Reaction Status Date / Time aspirin Allergy Severe ANAPHYLAXIS Verified 09/05/21 18:53 duloxetine [From Cymbalta] Allergy Rash Verified 09/05/21 18:53 Home Medications Medication Instructions Recorded Confirmed Type brimonidine 0.2 %-timolol 0.5 % 1 drp OPB DAILY 11/07/17 09/05/21 History eye drops (Combigan) cyanocobalamin (vitamin B-12) 1,000 mcg PO HS 11/07/17 09/05/21 History 1,000 mcg tablet (Vitamin B-12) magnesium 250 mg tablet 500 mg PO HS 11/07/17 09/05/21 History potassium chloride 20 mEq 20 meq PO QAM 11/07/17 09/05/21 History tablet,extended release travoprost 0.004 % eye drops 1 drp OPB HS 11/07/17 09/05/21 History (Travatan Z) metoprolol succinate 100 mg 100 mg PO QPM 08/12/18 09/05/21 History tablet,extended release 24 hr bkbannzmwa-yjreoehruehlo-geelicrr 1 tab PO Q4H PRN 11/18/20 09/05/21 History 50 mg-325 mg-40 mg tablet cholecalciferol (vitamin D3) 50 50 mcg PO DAILY 11/18/20 09/05/21 History mcg (2,000 unit) tablet (Vitamin D3) levothyroxine 75 mcg tablet 75 mcg PO DAILYBB 11/18/20 09/05/21 History pantoprazole 40 mg tablet,delayed 40 mg PO QPM 11/18/20 09/05/21 History release nifedipine 90 mg tablet,extended 90 mg PO QAM 05/20/21 09/05/21 History release 24 hr gabapentin 600 mg tablet 600 mg PO TID #90 tab 06/01/21 09/05/21 Rx hydrocodone 5 mg-acetaminophen 325 1 tab PO Q8H PRN 06/01/21 09/05/21 History mg tablet irbesartan 300 mg tablet (Avapro) 300 mg PO QPM 06/01/21 09/05/21 History hydralazine 10 mg tablet 10 mg PO TID 09/05/21 09/05/21 History leflunomide 20 mg tablet 20 mg PO DAILY 09/05/21 09/05/21 History prednisone 5 mg tablet 5 mg PO QPM 09/05/21 09/05/21 History Patient History Medical History Anxiety CKD (chronic kidney disease), stage III Depression Elevated troponin I level Glaucoma Herniated lumbar disc without myelopathy Left central disc herniation at L5-S1 High cholesterol Hypertension Hypertensive emergency Hypothyroidism Lumbar radiculopathy Neuropathy FEET Osteoarthritis Restless leg syndrome Rheumatoid arthritis FOLLOWS DR. RTEVINO Rotator cuff tear, left Spinal stenosis, lumbar region with neurogenic claudication Surgical History History of carpal tunnel release RIGHT HAND History of total bilateral knee replacement (TKR) Hx laparoscopic cholecystectomy Hx of arthroscopy RIGHT KNEE (MENISCUS) Hx of hysterectomy Hx of tonsillectomy Family History Mother Family history of reaction to anesthesia SLOW TO AWAKEN Social History Smoking Status: Never smoker Second Hand Exposure: No; Hx Alcohol Use: No Hx Substance Use: No Preferred Language: Telugu Communication Ability: Effective Visual Impairment: No Limitations Office Administration Instructor Required: No Beliefs That Will Affect Care: None marital status: Single Current Living Situation: Alone Current Living Situation Comment: needs 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 Gastrointestinal: Abdomen is soft, non distended, non tender, bowel sounds are present CVS: Regular rate and rhythm. No murmurs, rubs or gallops Musculoskeletal: No joint or muscle tenderness Extremities: Non tender, no edema, peripheral pulses are present Neuro: Oriented, no tremors, no focal neurological deficits Skin: No rashes Results & Data ([facility]) Vital Signs (Past 12 Hours) Vital Signs Temp Pulse Pulse Resp BP Pulse Ox 09/06/21 07:46 67 09/06/21 07:00 37.1 C 87 16 189/98 H 97 09/06/21 02:53 37.3 C 78 17 140/69 98 09/05/21 23:30 70 09/05/21 22:57 36.7 C 75 17 132/74 100 Laboratory Results 09/06/21 05:57 09/05/21 09/05/21 09/06/21 17:00 17:00 05:57 WBC 8.03 6.29 RBC 3.30 L 3.17 L MCV 96.1 94.6 MCH 29.7 29.7 MCHC 30.9 L 31.3 L RDW Std Deviation 55.6 H 55.4 H RDW Coeff of Mario 16.0 H 15.9 H Plt Count 317 267 MPV 9.4 9.3 Albumin 3.9 (1) CKD (chronic kidney disease), stage III Chronic kidney disease stage 3 subtype: stage 3a (GFR 45-59) Qualified Code(s): N18.31 - Chronic kidney disease, stage 3a
[2021-09-06] MEDS: HYDROCODONE/ACETAMOPHEN 5/325MG TAB PO PRN ×2 (12:59→20:58)
--- NOTE | 2021-09-06 15:13 | Hospitalist Progress Note ---
Date of Service September 06, 2021 Assessment & Plan (1) Hypertensive urgency: Plan: 80 yo female with RA on chronic prednisone and CKD Stage 3 presented 09/06 with elevated blood pressure. Patient was placed on spironolactone around July 10 and took a full dose for about 4 weeks, followed by half a dose for another few weeks because it made her tired. On 08/25 she was taken off this for worsening kidney function per nephrology although her BP was better on the spironola ctone. After stopping she noted an elevation in BP and then started back on hydralazine around 09/02. On 09/06, she presents with even higher BP. Her physical therapist took her BP and found it to be 236/114 at home on the day of arrival. She was asymptomatic. She is being managed for the following: (1) Hypertensive urgency: Plan: 2/2 recent medication adjustment [see above]. Patient without symptoms of chest pain or palpitation or headache or visual changes at presentation. She takes intermittent hydrocodone for RA pain and/or neuropathy but no reports that would indicate any clinical withdrawal. She had no recent high doses of prednisone that may have contributed. Denies high salt intake but is not cooking as much because of fatigue--depending on prepared salads (chicken/egg salad), toast/eggs, etc. Counseled on heart healthy diets and low-sodium diet. Blood pressure getting better controlled, nephrology on board, Toprol was stopped and Coreg started. Continue with nifedipine, irbesartan and hydralazine. Continue to monitor over telemetry. #. UTI 09/06 urine analysis suggestive of UTI, pending urine culture Started Rocephin 09/06, continue. #. CKD stage III Baseline creatinine around 1.5, admitting creatinine at 1.72 Creatinine trending down, does not qualify DENNIS over CKD Monitor electrolytes and BMP as appropriate. (2) Fatigue: Plan: 2/2 HTN vs medication side effects/polypharmacy? Cont plan as above. PT/OT. OF note, patient states that she was benefiting from home PT and was making progress back to her baseline of ambulating with a cane. (3) Hypothyroidism: Plan: chronic, stable, cont current medications. (4) Neuropathy: Plan: chronic, controlled with gabapentin and hydrocodone. Although there was a script of oxycodone given to her by Dr. Yanez, she appears to prefer hydrocodone. (5) DVT prophylaxis: Plan: Heparin Full Code Dispo-to PCU. To home pending stability in her blood pressure over time. Would like to see her fatigue improve and ordered PT/OT. Admission and Anticipated Discharge Date Admission Date: September 05, 2021 Subjective Patient seen and examined at bedside for follow-up of hypertensive urgency and UTI. Patient was lying in bed, NAD, on room air, no new acute events overnight but reports some headache in the morning which was relieved at time of bedside exam. Patient denies any dizziness or chest pain or palpitation or belly pain or shortness of breath or sore throat or cough or other review of symptoms. Patient reports eating okay. Physical Exam Physical Exam: GENERAL: Alert and oriented x3. NAD, on RA. Obese. HEENT: No pallor, no icterus. Pupils equal, round and reactive to light. Oral mucosa moist. NECK: No JVD, no neck masses. HEART: S1 and S2 heard. Regular rate and rhythm. No murmur, no gallop. RESPIRATORY SYSTEM: Normal AP diameter. No accessory muscle use. No wheezing, no crackles. ABDOMEN: Soft, bowel sounds present, nontender, no distention. CENTRAL NERVOUS SYSTEM: No facial droop. Speech is clear. Obeys simple commands. Moves extremities. EXTREMITIES: No edema, no erythema seen. Results & Data Results & Data ([facility]) Vital Signs (Past 12 Hours) Vital Signs Temp Pulse Pulse Resp BP Pulse Ox 09/06/21 11:28 37.1 C 68 14 157/82 H 97 09/06/21 07:46 67 09/06/21 07:00 37.1 C 87 16 189/98 H 97
[2021-09-06] MEDS ORDERED: DICLOFENAC SOD 1% GEL 100 GM TUBE EXT PRN (19:38)
[2021-09-06] MEDS: MAGNESIUM OXIDE 400 MG TAB PO SCH (20:43)
[2021-09-06] MEDS: predniSONE 5 MG TAB PO SCH (20:43)
[2021-09-06] MEDS: IRBESARTAN 150 MG TAB PO SCH (20:43)
[2021-09-06] MEDS: PANTOprazole 40 MG TAB PO SCH (20:43)
[2021-09-06] MEDS: CYANOCOBALAMIN (B-12) 500 MCG TABLET PO SCH (20:43)
[2021-09-06] MEDS: TRAVOPROST Z 0.004% OPH SOLN 2.5 ML BTL OPB SCH (20:44)
[2021-09-07] MEDS: COMBIGAN~ORDER AWAITING ACTION SCH ×3 (00:05→15:14)
[2021-09-07] MEDS: HEPARIN SOD 5,000 UNIT/0.5 ML VIAL SQ SCH ×3 (05:44→20:11)
[2021-09-07] MEDS: LEVOTHYROXINE SODIUM 75 MCG TABLET PO SCH (05:44)
[2021-09-07 06:15] LABS: Hematocrit (blood only) 28.8 % (37-47); Hemoglobin 8.7 g/dL (12.0-16.0); Mean Corpuscular Hemoglobin 29.5 pg (25-34); Mean Corpuscular Hgb Conc 30.2 g/dL (32-36); Mean Corpuscular Volume 97.6 fL (80-100); Mean Platelet Volume 9.1 fL (7.4-10.4); Platelet Count 236 K/uL (130-400); RDW Coefficient of Variation 15.9 % (11.5-14.5); RDW Standard Deviation 56.6 fL (36.4-46.3); Red Blood Count 2.95 M/uL (4.2-5.4); White Blood Count 7.51 K/uL (4.8-10.8)
[2021-09-07 06:42] LABS: BUN Creatinine Ratio 20.8 (10-20); Calcium 8.1 mg/dl (8.5-10.1); Creatinine Clr Calc Pharmacy 32.3 ml/min; Est GFR (African American) 40.2 ml/min; Est GFR (Non-African American) 34.7 ml/min; Magnesium 2.3 mg/dl (1.7-2.4); Potassium 4.5 mmol/L (3.5-5.1)
[2021-09-07] MEDS: carvediloL 25 MG TAB PO SCH ×2 (07:59→20:08)
[2021-09-07] MEDS: CHOLECALCIFEROL 1,000 UNITS 25 MCG TAB PO SCH (08:00)
[2021-09-07] MEDS: GABAPENTIN 600 MG TAB PO SCH ×3 (08:00→20:09)
[2021-09-07] MEDS: hydrALAZINE 10 MG TAB PO SCH ×3 (08:00→20:09)
[2021-09-07] MEDS: LEFLUNOMIDE 10 MG TAB PO SCH (08:01)
[2021-09-07] MEDS: NIFEdipine EXTENDED REL 30 MG TABCR PO SCH (08:02)
[2021-09-07] MEDS: POTASSIUM CHLORIDE CRTAB 20 MEQ TABCR PO SCH (08:03)
[2021-09-07] MEDS: cefTRIAXone SODIUM 1,000 MG in DEXTROSE 5% 50 ML IV SCH (08:06)
[2021-09-07] MEDS: ESCITALOPRAM OXALATE 10 MG TAB PO SCH (11:58)
--- NOTE | 2021-09-07 12:12 | Hospitalist Progress Note ---
Date of Service September 07, 2021 Assessment & Plan (1) Hypertensive urgency: Plan: 80 yo female with RA on chronic prednisone and CKD Stage 3 presented 09/06 with elevated blood pressure. Patient was placed on spironolactone around July 10 and took a full dose for about 4 weeks, followed by half a dose for another few weeks because it made her tired. On 08/25 she was taken off this for worsening kidney function per nephrology although her BP was better on the spironola ctone. After stopping she noted an elevation in BP and then started back on hydralazine around 09/02. On 09/06, she presents with even higher BP. Her physical therapist took her BP and found it to be 236/114 at home on the day of arrival. She was asymptomatic. She is being managed for the following: (1) Hypertensive urgency: #. Anxiety disorder: has been tried on various anxiety meds in the past per her, but discontinued d/t not having benefit and also reports not being on each of them for long enough time. Plan: 2/ recent medication adjustment [see above]. Patient without symptoms of chest pain or palpitation or headache or visual changes at presentation. She takes intermittent hydrocodone for RA pain and/or neuropathy but no reports that would indicate any clinical withdrawal. She had no recent high doses of prednisone that may have contributed. Denies high salt intake but is not cooking as much because of fatigue--depending on prepared salads (chicken/egg salad), toast/eggs, etc. Counseled on heart healthy diets and low-sodium diet. Has lot of anxiety issues/concerns with lot of things like finances/cat/anxious measuring BP at home (if high, she will have to come to hospital)/anxious opening mails (it might bear bad news) and has trouble concentrating on a topic during discussion. d/w patient, will be starting her on celexa 09/07, and prn hydroxyzine. Monitor EKG for QTc. Blood pressure still high, d/w nephrology , plan to add diuretic??. Continue with coreg, nifedipine, irbesartan and hydralazine. Continue to monitor over telemetry. #. UTI 09/06 urine analysis suggestive of UTI, pending urine culture --GNB as of now. Started Rocephin 09/06, continue. #. CKD stage III Baseline creatinine around 1.5, admitting creatinine at 1.72 Creatinine at baseline Monitor electrolytes and BMP as appropriate. (2) Fatigue: Plan: 2/2 HTN vs medication side effects/polypharmacy? Cont plan as above. PT/OT. OF note, patient states that she was benefiting from home PT and was making progress back to her baseline of ambulating with a cane. Would benefit from continuing w/ home PT. (3) Hypothyroidism: Plan: chronic, stable, cont current medications. (4) Neuropathy: Plan: chronic, controlled with gabapentin and hydrocodone. Although there was a script of oxycodone given to her by Dr. Yanez, she appears to prefer hydrocodone. (5) DVT prophylaxis: Plan: Heparin Full Code Dispo-to PCU. To home pending stability in her blood pressure over time.Re- anahy nunes. Admission and Anticipated Discharge Date Admission Date: September 05, 2021 Subjective Patient seen and examined at bedside for follow-up of hypertensive urgency and UTI. Patient was sitting up in bed, on room air, NAD, reports being not able to sleep overnight, also reports a lot of disturbances from monitor technician. Patient appears little stressed but was calm during bedside conversation. Patient reports eating okay. Patient denies headache or dizziness or chest pain or palpitation. Patient reports moving bowel. Patient states that she has multiple issues that keeps her worried all the time including her finances, cat, checking blood pressure at home [she is afraid if it is elevated she will have to call the hospital and she does not want to come to the hospital]. Patient appeared to not able to concentrate in the discussion and frequently drifts away from the topic. Patient states that she has been tried on various anxiety medications in the past, but she has not stayed on any of them for a longer time and feels that it may not have been sufficient time for her to have effects from those medications. Physical Exam Physical Exam: GENERAL: Alert and oriented x3. NAD, on RA. Obese. HEENT: No pallor, no icterus. Pupils equal, round and reactive to light. Oral mucosa moist. NECK: No JVD, no neck masses. HEART: S1 and S2 heard. Regular rate and rhythm. SM at aortic area, no gallop. RESPIRATORY SYSTEM: Normal AP diameter. No accessory muscle use. No wheezing, no crackles. ABDOMEN: Soft, bowel sounds present, nontender, no distention. CENTRAL NERVOUS SYSTEM: No facial droop. Speech is clear. Obeys simple commands. Moves extremities. EXTREMITIES: No edema, no erythema seen. Results & Data Results & Data ([facility]) Vital Signs (Past 12 Hours) Vital Signs Temp Pulse Resp BP Pulse Ox 09/07/21 07:27 36.5 C 83 15 184/100 H 98 09/07/21 02:31 36.6 C 78 16 127/69 95
--- NOTE | 2021-09-07 16:39 | Nephrology Progress Note ---
Date of Service September 07, 2021 Assessment & Plan (1) Hypertensive urgency: Plan: Patient with hypertensive urgency due to recent medication changes/anxiety/ nonadeherence to medical recs. Pt w/ hx of changing meds on her own w/o advice from medical team >> this happened prior to admission; per OP records, she had been on 50 mg daily from 06/14/21 and lowered to 25 mg daily on 08/17/21. multiple reasons given regarding BP med changes and some uncontrolled BP at OV w/ rheum late August. explained to her that she needs a diuretic in BP regimen and that spironolactone likely best in terms of combining bp control and minimal increasein voiding. Hx of severe hypokalemia in past w/ other diuretics. note no hx of cardiac disease, though mild [facility] on 2021 [facility] -will give low dose spironolactone now 12.5 mg and daily in am -continue coreg -Continue nifedipine, irbesartan -put hold parameters on 10 mg tid hydralazine. -importance of medical and behavioral anxiety mgt discussed (2) CKD (chronic kidney disease), stage III: Plan: Patient with CKD stage III due to hypertension. Creatinine is 1.4, her OP baseline. Continue to monitor renal function daily BMP and avoid nephrotoxins. Admission and Anticipated Discharge Date Admission Date: September 05, 2021 Subjective pt remains extremely anxious about her BP status; endorses frequent situational HTN [employer] and BP better after benzos. no sob, no CP/P, no n/v; no new/worrisome voidng sx; transient pedal edema; wondering why abtx for UTI Review of Systems Review of Systems: All systems reviewed & are unremarkable except as noted in Subjective Physical Exam Constitutional: well developed and well nourished Eyes: EOM intact bilaterally ENMT: Ears: no external ear abnormality Nose: no external nose abnormality Mouth: + dry oral mucous membranes Neck: no nuchal rigidity Respiratory: normal respiratory effort Auscultation: + diminished lung sounds Gastrointestinal (Abdomen): Inspection/Auscultation: normal bowel sounds Percussion/Palpation: abdomen soft; abdomen nontender Musculoskeletal: Extremities: strength 5/5 throughout Skin: no rashes, warm and dry Neurologic: norris, fluent speech, no tremor Results & Data ([facility]) Vital Signs (Past 12 Hours) Vital Signs Temp Pulse Resp BP Pulse Ox 09/07/21 14:49 36.8 C 84 18 158/72 H 97 09/07/21 12:02 36.5 C 79 18 140/71 98 09/07/21 07:27 36.5 C 83 15 184/100 H 98 Laboratory Results 09/07/21 05:32 09/07/21 05:32 (1) CKD (chronic kidney disease), stage III Chronic kidney disease stage 3 subtype: stage 3a (GFR 45-59) Qualified Code(s): N18.31 - Chronic kidney disease, stage 3a
[2021-09-07] MEDS: SPIRONOLACTONE 12.5 MG TAB PO SCH (17:05)
[2021-09-07] MEDS: CYANOCOBALAMIN (B-12) 500 MCG TABLET PO SCH (20:08)
[2021-09-07] MEDS: IRBESARTAN 150 MG TAB PO SCH (20:10)
[2021-09-07] MEDS: MAGNESIUM OXIDE 400 MG TAB PO SCH (20:10)
[2021-09-07] MEDS: predniSONE 5 MG TAB PO SCH (20:11)
[2021-09-07] MEDS: PANTOprazole 40 MG TAB PO SCH (20:11)
[2021-09-07] MEDS: TRAVOPROST Z 0.004% OPH SOLN 2.5 ML BTL OPB SCH (20:12)
[2021-09-07] MEDS: HYDROCODONE/ACETAMOPHEN 5/325MG TAB PO PRN (22:12)
[2021-09-07] MEDS: MELATONIN 3 MG TAB PO SCH (22:14)
[2021-09-08] MEDS: HEPARIN SOD 5,000 UNIT/0.5 ML VIAL SQ SCH ×3 (05:24→21:11)
[2021-09-08] MEDS: LEVOTHYROXINE SODIUM 75 MCG TABLET PO SCH (05:24)
[2021-09-08 06:53] LABS: Hematocrit (blood only) 28.9 % (37-47); Hemoglobin 8.9 g/dL (12.0-16.0)
[2021-09-08 07:12] LABS: BUN Creatinine Ratio 18.6 (10-20); Calcium 8.4 mg/dl (8.5-10.1); Creatinine Clr Calc Pharmacy 33.2 ml/min; Est GFR (African American) 41.6 ml/min; Est GFR (Non-African American) 35.9 ml/min; Magnesium 2.4 mg/dl (1.7-2.4); Potassium 4.9 mmol/L (3.5-5.1)
[2021-09-08] MEDS: COMBIGAN~ORDER AWAITING ACTION SCH ×3 (07:39→15:37)
[2021-09-08] MEDS: cefTRIAXone SODIUM 1,000 MG in DEXTROSE 5% 50 ML IV SCH (07:40)
[2021-09-08] MEDS: BRIMONIDINE TARTRATE 0.2% 5ML OPB SCH (07:42)
[2021-09-08] MEDS: carvediloL 25 MG TAB PO SCH ×2 (07:43→21:12)
[2021-09-08] MEDS: CHOLECALCIFEROL 1,000 UNITS 25 MCG TAB PO SCH (07:43)
[2021-09-08] MEDS: ESCITALOPRAM OXALATE 10 MG TAB PO SCH (07:44)
[2021-09-08] MEDS: GABAPENTIN 600 MG TAB PO SCH ×3 (07:44→21:12)
[2021-09-08] MEDS: hydrALAZINE 10 MG TAB PO SCH ×3 (07:44→21:13)
[2021-09-08] MEDS: POTASSIUM CHLORIDE CRTAB 20 MEQ TABCR PO SCH (07:45)
[2021-09-08] MEDS: NIFEdipine EXTENDED REL 30 MG TABCR PO SCH (07:45)
[2021-09-08] MEDS: LEFLUNOMIDE 10 MG TAB PO SCH (07:45)
[2021-09-08] MEDS: TIMOLOL MALEATE 0.5% OP SOLN 5 ML BTL OPB SCH (07:46)
[2021-09-08] MEDS: SPIRONOLACTONE 12.5 MG TAB PO SCH (07:46)
--- NOTE | 2021-09-08 09:18 | Electrocardiogram Report ---
Test Reason : Blood Pressure : / mmHG Vent. Rate : 077 BPM Atrial Rate : 077 BPM P-R Int : 134 ms QRS Dur : 080 ms QT Int : 366 ms P-R-T Axes : 058 026 092 degrees QTc Int : 414 ms Normal sinus rhythm Left ventricular hypertrophy with repolarization abnormality Abnormal ECG When compared with ECG of 05-SEP-2021 16:51, No significant change Confirmed by Saul Vidal [id number]) on 09/08/2021 9:17:52 AM Referred By: REFERRED SELF Confirmed By:Saul Vidal
[2021-09-08] MEDS ORDERED: FUROSEMIDE 20 MG TAB PO ONE (10:15)
[2021-09-08] MEDS ORDERED: PROMETHAZINE HCL 12.5 MG/10 ML UDP PO ONE (12:15)
--- NOTE | 2021-09-08 12:32 | Nephrology Progress Note ---
Date of Service September 08, 2021 Assessment & Plan (1) Hypertensive urgency: Plan: Patient with hypertensive urgency due to recent medication changes/anxiety/ nonadeherence to medical recs. Pt w/ hx of changing meds on her own w/o advice from medical team >> this happened prior to admission; per OP records, she had been on 50 mg daily from 06/14/21 and lowered to 25 mg daily on 08/17/21. multiple reasons given regarding BP med changes and some uncontrolled BP at OV w/ rheum late August. explained to her that she needs a diuretic in BP regimen and that spironolactone likely best in terms of combining bp control and minimal increase in voiding. Hx of severe hypokalemia in past w/ other diuretics. note no hx of cardiac disease, though mild [facility] on 2021 [facility]TE [facility] -cont low dose spironolactone 12.5 mg daily -stopped K suppls -continue coreg -Continue nifedipine, irbesartan -put hold parameters on 10 mg tid hydralazine. -importance of medical and behavioral anxiety mgt discussed again w/ pt >>would like to see sbp in 150-160s consistently x 48 hrs before d/c (2) CKD (chronic kidney disease), stage III: Plan: Patient with CKD stage III due to hypertension. Creatinine is 1.4, her OP baseline. Continue to monitor renal function daily BMP and avoid nephrotoxins. Admission and Anticipated Discharge Date Admission Date: September 05, 2021 Subjective seen on AM rounds 1030; no CP/P, no sob; did have 3 loose bm this am. no sx w/ transient bp elevations; wondering if PT /OT affects BP Review of Systems Review of Systems: All systems reviewed & are unremarkable except as noted in Subjective Physical Exam Constitutional: well developed and well nourished Eyes: EOM intact bilaterally ENMT: Ears: no external ear abnormality Nose: no external nose abnormality Mouth: + dry oral mucous membranes Neck: no nuchal rigidity Respiratory: normal respiratory effort Auscultation: + diminished lung sounds Cardiovascular: RRR, no murmur, no edema Gastrointestinal (Abdomen): Inspection/Auscultation: normal bowel sounds Percussion/Palpation: abdomen soft; abdomen nontender Musculoskeletal: Extremities: strength 5/5 throughout Skin: no rashes, warm and dry Neurologic: norris, fluent speech, no tremor Results & Data ([facility]) Vital Signs (Past 12 Hours) Vital Signs Temp Pulse Resp BP Pulse Ox 09/08/21 11:07 36.7 C 79 17 161/82 H 99 09/08/21 09:54 71 159/84 H 09/08/21 07:11 36.6 C 81 20 206/104 H 97 09/08/21 04:15 36.6 C 78 17 139/61 97 Laboratory Results 09/08/21 05:36 09/08/21 05:36 (1) CKD (chronic kidney disease), stage III Chronic kidney disease stage 3 subtype: stage 3a (GFR 45-59) Qualified Code(s): N18.31 - Chronic kidney disease, stage 3a
--- NOTE | 2021-09-08 16:32 | Hospitalist Progress Note ---
Date of Service September 08, 2021 Assessment & Plan (1) Hypertensive urgency: Plan: 80 yo female with RA on chronic prednisone and CKD Stage 3 presented 09/06 with elevated blood pressure. Patient was placed on spironolactone around July 10 and took a full dose for about 4 weeks, followed by half a dose for another few weeks because it made her tired. On 08/25 she was taken off this for worsening kidney function per nephrology although her BP was better on the spironola ctone. After stopping she noted an elevation in BP and then started back on hydralazine around 09/02. On 09/06, she presents with even higher BP. Her physical therapist took her BP and found it to be 236/114 at home on the day of arrival. She was asymptomatic. She is being managed for the following: (1) Hypertensive urgency: #. Anxiety disorder: has been tried on various anxiety meds in the past per her, but discontinued d/t not having benefit and also reports not being on each of them for long enough time. Plan: / recent medication adjustment [see above]. Patient without symptoms of chest pain or palpitation or headache or visual changes at presentation. She takes intermittent hydrocodone for RA pain and/or neuropathy but no reports that would indicate any clinical withdrawal. She had no recent high doses of prednisone that may have contributed. Denies high salt intake but is not cooking as much because of fatigue-- mostly depends on prepared salads (chicken/egg salad), toast/eggs, etc. Counseled on heart healthy diets and low-sodium diet. Has lot of anxiety issues/concerns with lot of things like finances/cat/anxious measuring BP at home (if high, she will have to come to hospital)/anxious opening mails (it might bear bad news) and has trouble concentrating on a topic during discussion. Started celexa 09/07, and prn hydroxyzine. Monitor EKG for QTc. Blood pressure still high, nephrology on board, d/w nephro. Continue with spironolactone, coreg, nifedipine, irbesartan and hydralazine (w/ parameters). Stopped K supplement. Continue to monitor over telemetry. #. UTI 09/06 urine analysis suggestive of UTI, pending urine culture -- pansensitive e .c antwan C/w Rocephin 09/06. #. CKD stage III Baseline creatinine around 1.5, admitting creatinine at 1.72 Creatinine at baseline Monitor electrolytes and BMP as appropriate. (2) Fatigue: Plan: 2/2 HTN vs medication side effects/polypharmacy? Cont plan as above. PT/OT. OF note, patient states that she was benefiting from home PT and was making progress back to her baseline of ambulating with a cane. Would benefit from continuing w/ home PT. (3) Hypothyroidism: Plan: chronic, stable, cont current medications. (4) Neuropathy: Plan: chronic, controlled with gabapentin and hydrocodone. Although there was a script of oxycodone given to her by Dr. Yanez, she appears to prefer hydrocodone. (5) DVT prophylaxis: Plan: Heparin Full Code Dispo- To home pending stability in her blood pressure over time.Re-anahy manju. Admission and Anticipated Discharge Date Admission Date: September 05, 2021 Subjective Patient seen and examined at bedside for follow-up of hypertensive urgency and UTI. Patient was sitting up in bed, on room air, NAD, reports good night sleep overnight but was upset due to her blood pressure still being high in the morning and was wondering if physical therapy/Occupational Therapy also causes increase in blood pressure. Patient reports eating okay. Patient denies headache or dizziness or chest pain or palpitation. Physical Exam Physical Exam: GENERAL: Alert and oriented x3. NAD, on RA. Obese. HEENT: No pallor, no icterus. Pupils equal, round and reactive to light. Oral mucosa moist. NECK: No JVD, no neck masses. HEART: S1 and S2 heard. Regular rate and rhythm. SM at aortic area, no gallop. RESPIRATORY SYSTEM: Normal AP diameter. No accessory muscle use. No wheezing, no crackles. ABDOMEN: Soft, bowel sounds present, nontender, no distention. CENTRAL NERVOUS SYSTEM: No facial droop. Speech is clear. Obeys simple commands. Moves extremities. EXTREMITIES: No edema, no erythema seen. Results & Data Results & Data ([facility]) Vital Signs (Past 12 Hours) Vital Signs Temp Pulse Resp BP Pulse Ox 09/08/21 15:30 36.6 C 81 16 181/96 H 95 09/08/21 11:07 36.7 C 79 17 161/82 H 99 09/08/21 09:54 71 159/84 H 09/08/21 07:11 36.6 C 81 20 206/104 H 97
[2021-09-08] MEDS: hydrOXYzine HCl 25 MG TAB PO PRN ×2 (17:32→21:12)
[2021-09-08] MEDS: ADVANCED PROBIOTIC 1250 MG CAPSULE PO SCH (17:33)
[2021-09-08] MEDS: MELATONIN 3 MG TAB PO SCH (21:11)
[2021-09-08] MEDS: IRBESARTAN 150 MG TAB PO SCH (21:11)
[2021-09-08] MEDS: TRAVOPROST Z 0.004% OPH SOLN 2.5 ML BTL OPB SCH (21:11)
[2021-09-08] MEDS: predniSONE 5 MG TAB PO SCH (21:12)
[2021-09-08] MEDS: CYANOCOBALAMIN (B-12) 500 MCG TABLET PO SCH (21:12)
[2021-09-08] MEDS: PANTOprazole 40 MG TAB PO SCH (21:12)
[2021-09-08] MEDS: MAGNESIUM OXIDE 400 MG TAB PO SCH (21:12)
[2021-09-09] MEDS: COMBIGAN~ORDER AWAITING ACTION SCH ×2 (01:16→08:33)
[2021-09-09] MEDS: LEVOTHYROXINE SODIUM 75 MCG TABLET PO SCH (06:09)
[2021-09-09] MEDS: HEPARIN SOD 5,000 UNIT/0.5 ML VIAL SQ SCH ×2 (06:10→13:16)
[2021-09-09 06:48] LABS: BUN Creatinine Ratio 15.7 (10-20); Calcium 8.5 mg/dl (8.5-10.1); Creatinine Clr Calc Pharmacy 25.6 ml/min; Est GFR (African American) 31.1 ml/min; Est GFR (Non-African American) 26.9 ml/min; Magnesium 2.3 mg/dl (1.7-2.4); Phosphorus 4.6 mg/dl (2.5-4.9); Potassium 4.3 mmol/L (3.5-5.1)
[2021-09-09] MEDS: BRIMONIDINE TARTRATE 0.2% 5ML OPB SCH (08:02)
[2021-09-09] MEDS: TIMOLOL MALEATE 0.5% OP SOLN 5 ML BTL OPB SCH (08:03)
[2021-09-09] MEDS: GABAPENTIN 600 MG TAB PO SCH ×2 (08:03→13:18)
[2021-09-09] MEDS: cefTRIAXone SODIUM 1,000 MG in DEXTROSE 5% 50 ML IV SCH (08:03)
[2021-09-09] MEDS: CHOLECALCIFEROL 1,000 UNITS 25 MCG TAB PO SCH (08:04)
[2021-09-09] MEDS: SPIRONOLACTONE 12.5 MG TAB PO SCH (08:04)
[2021-09-09] MEDS: LEFLUNOMIDE 10 MG TAB PO SCH (08:04)
[2021-09-09] MEDS: hydrALAZINE 10 MG TAB PO SCH ×2 (08:05→13:16)
[2021-09-09] MEDS: carvediloL 25 MG TAB PO SCH (08:05)
[2021-09-09] MEDS: ADVANCED PROBIOTIC 1250 MG CAPSULE PO SCH (08:06)
[2021-09-09] MEDS: NIFEdipine EXTENDED REL 30 MG TABCR PO SCH (08:06)
[2021-09-09] MEDS: ESCITALOPRAM OXALATE 10 MG TAB PO SCH (08:06)
--- NOTE | 2021-09-09 09:59 | Nephrology Progress Note ---
Date of Service September 09, 2021 Assessment & Plan (1) Hypertensive urgency: Plan: Patient with hypertensive urgency due to recent medication changes/anxiety/ nonadeherence to medical recs. Pt w/ hx of changing meds on her own w/o advice from medical team >> this happened prior to admission; per OP records, she had been on 50 mg daily spironolactone from 06/14/21 and lowered to 25 mg daily on 08/17/21. multiple reasons given regarding BP med changes and some uncontrolled BP at OV w/ rheum late August. explained to her that she needs a diuretic in BP regimen and that spironolactone likely best in terms of combining bp control and minimal increase in voiding. Hx of severe hypokalemia in past w/ other diuretics. note no hx of cardiac disease, though mild [facility] on 2021 [facility]TE [facility] -cont low dose spironolactone 12.5 mg daily -no indication for K suppls -continue coreg -Continue nifedipine, irbesartan -put hold parameters on 10 mg tid hydralazine. -importance of medical and behavioral anxiety mgt discussed again w/ pt > she feels vistaril helped considerably and that lexapro makes her ill; redirected her to work on these meds w/ Dr Barbour and Mily >>would like to see sbp in 150-160s consistently >>has upper arm home bp cuff offered by team >> recommend validation of cuff prior to d/c >> if SBP > 10 points different than automated cuff would not give her home BP cuff since I can get her validated one after hospital d/c >>from renal / HTN standpoint ok for [facility] d/c today >> -d/c on current bp med regimen -log home bp 2-3X daily, no more -renal nurse to order BMP to be drawn 09/13, 09/20 after hospital d/c -she wishes to change her neph care from Dr Ferrer to me >> pls arrange HOSPITAL D/C appt with her/me wk of 09/19/21 in [facility] -continue NSAID avoidance at hospital d/c (2) CKD (chronic kidney disease), stage III: Plan: Patient with CKD stage III due to hypertension. Creatinine is 1.8 today, up from her 1.4 OP baseline. Continue to monitor renal function daily BMP while in house and avoid nephrotoxins. Admission and Anticipated Discharge Date Admission Date: September 05, 2021 Subjective states she had a terrible night > was irritated by nursing staff watching her closely when up to commode and by having bed alarm on; no sob, no CP/P, no new/worrisome voiding issues, no edema. c/o marked GI upset w/ one dose of lasix; feels she tolerated spironolactone well. Review of Systems Review of Systems: All systems reviewed & are unremarkable except as noted in Subjective Physical Exam Constitutional: well developed and well nourished up in chair on RA Eyes: EOM intact bilaterally ENMT: Ears: no external ear abnormality Nose: no external nose abnormality Mouth: + dry oral mucous membranes Neck: no nuchal rigidity Respiratory: normal respiratory effort Auscultation: + diminished lung sounds Cardiovascular: Rate/Rhythm: regular rhythm and + tachycardic Extremities: no edema Gastrointestinal (Abdomen): Inspection/Auscultation: normal bowel sounds Percussion/Palpation: abdomen soft; abdomen nontender Musculoskeletal: Extremities: strength 5/5 throughout Skin: no rashes, warm and dry Neurologic: norris, fluent speech, no tremor Psychiatric: Orientation: alert and oriented x 3 Speech: normal rate/rhythm/volume of speech Insight: good insight Judgement: good judgement Results & Data ([facility]) Vital Signs (Past 12 Hours) Vital Signs Temp Pulse Pulse Resp BP Pulse Ox 09/09/21 07:58 96 H 166/94 H 09/09/21 07:30 36.6 C 96 H 16 155/77 H 97 09/09/21 04:43 36.7 C 102 H 18 160/96 H 98 09/09/21 00:48 36.6 C 84 18 138/62 98 09/08/21 23:02 69 Laboratory Results 09/08/21 05:36 09/09/21 05:25 (1) CKD (chronic kidney disease), stage III Chronic kidney disease stage 3 subtype: stage 3a (GFR 45-59) Qualified Code(s): N18.31 - Chronic kidney disease, stage 3a
--- NOTE | 2021-09-09 12:51 | Discharge Summary ---
Date of Service September 09, 2021 Admission HPI Per Admitting Provider 80 yo female with RA on chronic prednisone and CKD Stage 3 presents with elevated blood pressure. Patient was placed on spironolactone around July 10 and took a full dose for about 4 weeks, followed by half a dose for another few weeks because it made her tired. On 08/25 she was taken off this for worsening kidney function per nephrology although her BP was better on the spironolactone. After stopping she noted an elevation in BP and then started back on hydralazine around 09/02. Today she presents with even higher BP. Her physical therapist took her BP and found it to be 236/114. She was asymptomatic. She is having some pain in her feet No chest pain, headache, visual changes, shortness of breath No headache, fevers, chills. diarrhea, abdominal pain No recent meals heavy in salt. Mostly cooks and eats off meals that she cooks, but reports not feeling well enough because she is very fatigued She has been sleeping at night She has been substisting on egg salad/chicken salad sandwiches, potatoes, toast, eggs Fatigue has been worsening over the past two weeks. She doesn't have a home blood pressure cuff but has a friend who comes down and takes it for her; friend is a nurse. She is stressed about her cats who are still outside (there was a bear sighting recently) Admission Exam Per Admitting Provider CONSTITUTIONAL: WNWD, vitals as above, generally well-appearing, NAD EYES: pupils are round and equal bilaterally, normal conjunctivae, no scleral icterus ENT: external ear and nose normal, MMM NECK: trachea midline RESPIRATORY: clear to auscultation bilaterally, no crackles, rales or wheezes, normal respiratory effort CARDIOVASCULAR: regular rate and rhythm, S1 and 2 heard without murmurs, gallops or rubs, no JVD, no peripheral edema, CHEST: inspection of chest was normal GASTROINTESTINAL: soft, nontender, ND, no guarding MUSCULOSKELETAL: strength 5/5 throughout, head is normocephalic and atraumatic SKIN: warm and dry NEUROLOGIC: No facial palsy, no dysarthria. CN 2-12 grossly intact, no sensory deficit feet bilaterally, normal cognition, normal speech, no tremor PSYCHIATRIC: alert cooperative and oriented to person, place and time. Euthymic mood, makes good eye contact, language grossly intact, recent and remote memory grossly intact. Principal Diagnosis Hypertensive urgency Anxiety disorder UTI Discharge Exam GENERAL: Alert and oriented x3. NAD, on RA. Obese. HEENT: No pallor, no icterus. Pupils equal, round and reactive to light. Oral mucosa moist. NECK: No JVD, no neck masses. HEART: S1 and S2 heard. Regular rate and rhythm. SM at aortic area, no gallop. RESPIRATORY SYSTEM: Normal AP diameter. No accessory muscle use. No wheezing, no crackles. ABDOMEN: Soft, bowel sounds present, nontender, no distention. CENTRAL NERVOUS SYSTEM: No facial droop. Speech is clear. Obeys simple commands. Moves extremities. EXTREMITIES: No edema, no erythema seen. Discharge Data Allergies Allergy/AdvReac Type Severity Reaction Status Date / Time aspirin Allergy Severe ANAPHYLAXIS Verified 09/05/21 18:53 duloxetine [From Cymbalta] Allergy Rash Verified 09/05/21 18:53 Consultations 09/05/21 18:13 ED Decision to Admit Stat 09/05/21 21:24 Consult Nephrology Routine 09/08/21 17:12 Consult Behavioral Health Liaison Routine Hospital Course (1) Hypertensive urgency: 80 yo female with RA on chronic prednisone and CKD Stage 3 presented 09/06 with elevated blood pressure. Patient was placed on spironolactone around July 10 and took a full dose for about 4 weeks, followed by half a dose for another few weeks because it made her tired. On 08/25 she was taken off this for worsening kidney function per nephrology although her BP was better on the spironolactone. After stopping she noted an elevation in BP and then started back on hydralazine around 09/02. On 09/06, she presents with even higher BP. Her physical therapist took her BP and found it to be 236/114 at home on the day of arrival. She was asymptomatic. She was managed for the following: (1) Hypertensive urgency: #. Anxiety disorder: has been tried on various anxiety meds in the past per her, but discontinued d/t not having benefit and also reports not being on each of them for long enough time. Plan: 2/2 recent medication adjustment [see above]. Patient without symptoms of chest pain or palpitation or headache or visual changes at presentation. She takes intermittent hydrocodone for RA pain and/or neuropathy but no reports that would indicate any clinical withdrawal. She had no recent high doses of prednisone that may have contributed. Denies high salt intake but is not cooking as much because of fatigue-- mostly depends on prepared salads (chicken/egg salad), toast/eggs, etc. Counseled on heart healthy diets and low-sodium diet. Has lot of anxiety issues/concerns with lot of things like finances/cat/anxious measuring BP at home (if high, she will have to come to hospital)/anxious o pening mails (it might bear bad news) and has trouble concentrating on a topic during discussion. Started celexa 09/07, and prn hydroxyzine. Pt reports feeling better with vistaril . Blood pressure better controlled, nephrology on board, f/u w/ nephro in 1-2 weeks, BMP as OP x2. Continue with spironolactone, coreg, nifedipine, irbesartan and hydralazine (w/ parameters). Stopped K supplement. Pt to f/u PCP as OP, and to discuss ongoing care for anxiety. #. UTI 09/06 urine analysis suggestive of UTI, pending urine culture -- pansensitive e .c antwan C/w Rocephin 09/06. being discharged on 3 more days of cefdinir daily (CrCl low). #. CKD stage III Baseline creatinine around 1.5, admitting creatinine at 1.72 Creatinine slightly elevated after starting Aldactone, given High BP plan is to continue aldactone for now and monitor BMP closely as OP per Nephro. Pt to f/u w/ nephro as OP. Pt aware and reports having d/w nephro in AM. Pt ok for DC from Nephro POV. (2) Fatigue: Plan: 2/2 HTN vs medication side effects/polypharmacy? Cont plan as above. PT/OT. OF note, patient states that she was benefiting from home PT and was making progress back to her baseline of ambulating with a cane. Would benefit from continuing w/ home PT. (3) Hypothyroidism: Plan: chronic, stable, cont current medications. (4) Neuropathy: Plan: chronic, controlled with gabapentin and hydrocodone. Although there was a script of oxycodone given to her by Dr. Yanez, she appears to prefer hydrocodone. (5) DVT prophylaxis: Plan: Heparin Full Code Patient being discharged home with home meds with following instruction at the point of discharge: Follow-up with your primary care physician within a week time. Follow-up with your kidney doctor in 1 to 2 weeks time. For your anxiety, you have been started on Celexa and as needed Vistaril. Continue to follow-up with your primary care for further evaluation and management. For your hypertension, nephrology evaluated you and I started you on Aldactone 12.5 mg daily. Metoprolol changed to Coreg. Potassium supplement stopped. Continue other medications as prescribed. For your UTI, you received 4 days of IV antibiotics, you are being discharged on 3 more days of oral antibiotic, take your antibiotics from 09/10/2021 for 3 more days. Measure blood pressure 2 times a day and maintain a log to take it to your primary care physician and nephrology doctor as an outpatient which helps in evaluation and management of your hypertension. You are supposed to take hydralazine with holding parameter - When you upper blood pressure number is lower than 160 mmHg, you can skip hydralazine for that time of the day. Avoid NSAIDs. Get your blood work BMP done in 09/13 and 09/20, your nephrology clinic will be in touch with you. Take your medications as prescribed. Total Time Total Time Spent Total Time Spent (In Minutes): 40 Discharge Plan Discharge Items Patient Disposition: Home - Home Health Services Reason For Visit: ELEVATED BP Discharge Diagnosis: Hypertensive urgency Anxiety disorder UTI Activity: Resume your previous activity Non-emergency contact: Primary Care Provider Call non-emergency contact if: you have any medication questions and your symptoms worsen Follow-up/Referrals: Kj Minor MD [Primary Care Provider] - Diet: Heart Healthy and Low Sodium (2gm) Addtl Attending Provider Instructions: Follow-up with your primary care physician within a week time. Follow-up with your kidney doctor in 1 to 2 weeks time. For your anxiety, you have been started on Celexa and as needed Vistaril. Continue to follow-up with your primary care for further evaluation and management. For your hypertension, nephrology evaluated you and I started you on Aldactone 12.5 mg daily. Metoprolol changed to Coreg. Potassium supplement stopped. Continue other medications as prescribed. For your UTI, you received 4 days of IV antibiotics, you are being discharged on 3 more days of oral antibiotic, take your antibiotics from 09/10/2021 for 3 more days. Measure blood pressure 2 times a day and maintain a log to take it to your primary care physician and nephrology doctor as an outpatient which helps in evaluation and management of your hypertension. You are supposed to take hydralazine with holding parameter - When you upper blood pressure number is lower than 160 mmHg, you can skip hydralazine for that time of the day. Avoid NSAIDs. Get your blood work BMP done in 09/13 and 09/20, your nephrology clinic will be in touch with you. Take your medications as prescribed. Pending Studies at Discharge: No Stand-Alone Forms: [employer], Smoking Cessation Medications and DC Order Prescriptions: New carvedilol 25 mg Tablet 25 mg PO BID Qty: 60 RF: 0 spironolactone 25 mg Tablet 12.5 mg PO DAILY Qty: 15 RF: 0 escitalopram oxalate 10 mg Tablet 10 mg PO QAM Qty: 30 RF: 0 hydroxyzine HCl 25 mg Tablet 25 mg PO TID PRN (Reason: anxiety) Qty: 60 RF: 0 cefdinir 300 mg capsule 300 mg PO DAILY 3 Days Qty: 3 RF: 0 Continued hydrocodone-acetaminophen 5-325 mg tablet 1 tab PO Q8H PRN (Reason: Pain) RF: 0 irbesartan [Avapro] 300 mg tablet 300 mg PO QPM RF: 0 gabapentin 600 mg tablet 600 mg PO TID Qty: 90 RF: 2 cyanocobalamin (vitamin B-12) [Vitamin B-12] 1,000 mcg Tablet 1,000 mcg PO HS RF: 0 travoprost [Travatan Z] 0.004 % Drops 1 drp OPB HS RF: 0 magnesium 250 mg Tablet 500 mg PO HS RF: 0 brimonidine-timolol [Combigan] 0.2-0.5 % Drops 1 drp OPB DAILY RF: 0 [id number]-rtlxswlsedxlm-bzxa 50-325-40 mg Tablet 1 tab PO Q4H PRN (Reason: sinus headache) RF: 0 levothyroxine 75 mcg tablet 75 mcg PO DAILYBB RF: 0 pantoprazole 40 mg tablet,delayed release (DR/EC) 40 mg PO QPM RF: 0 cholecalciferol (vitamin D3) [Vitamin D3] 50 mcg (2,000 unit) Tablet 50 mcg PO DAILY RF: 0 nifedipine 90 mg tablet extended release 24 hr 90 mg PO QAM RF: 0 prednisone 5 mg tablet 5 mg PO QPM RF: 0 hydralazine 10 mg tablet 10 mg PO TID RF: 0 leflunomide 20 mg tablet 20 mg PO DAILY RF: 0 Discontinued metoprolol succinate 100 mg Tablet Extended Release 24 Hr 100 mg PO QPM RF: 0 potassium chloride 20 mEq Tablet Extended Release 20 meq PO QAM RF: 0 Discharge Orders: Discharge Order (Routine); Ordered 09/09/21 Ordered By: Helen Barbour Admission Data Admit Date/Time: 09/05/21 19:10 Attending Provider: Helen Barbour Admit Provider: Marlee Arcos Primary Care Provider: Kj Minor Other Providers: Marlee Arcos ; Eric Camejo
== END 2021-09-09 15:02 | disposition home health service (06) | DRG 305 ==
LOC: ED 16:08 → SUATTDRO 19:10 → 2E 19:10

== ENCOUNTER 2022-06-20 17:29 | Inpatient (IN) ==
[2022-06-20] MEDS ORDERED: ONDANSETRON INJ 2 MG/ML 2 ML VIAL IV STA (17:53)
[2022-06-20] MEDS ORDERED: SODIUM CHLORIDE 0.9% 1000ML 1,000 ML IV SCH (18:00)
[2022-06-20] MEDS ORDERED: fentaNYL citrate PF 100 MCG/2 ML VIAL IV STA ×2 (19:17→20:03)
[2022-06-20] MEDS ORDERED: AMPICILLIN/SULBACTAM SOD 3,000 MG in 0.9 % SODIUM CHLORIDE 100 ML IV STA (19:17)
--- NOTE | 2022-06-20 19:17 | Emergency Department Note ---
Impression & Plan Gastroenteritis, Weakness, Elevated troponin, Aspiration pneumonia, Hypoxia ED Provider Note Provider: Steven Lai MD DATE OF SERVICE: 06/20/2022 CHIEF COMPLAINT: Weakness, vomiting and diarrhea HISTORY OF PRESENT ILLNESS: Patient is a 81-year-old female history of hypertension, CKD, fatigue presenting here today with significant weakness. Patient states he went to bed okay last night and overnight developed nausea and vomiting vomiting multiple times with significant nonbloody diarrhea. Was too weak to get out of bed and laid there throughout the day. Home PT came to visit her not in the doorway able to get in. Eventually EMS was activated and broke down the door and found her resting covered in feces in her bed. Patient complains of her sciatica back pain but denies significant abdominal pain. Denies feeling severely short of breath. Denies fever. No falls or trauma reported. Denies recent sick contact to her knowledge. Reports some pain in her back down her legs consistent with her sciatica. PAST MEDICAL HISTORY: As noted above MEDICATIONS: Reviewed medications but did not take any medications today SOCIL HISTORY: Lives at home by herself PHYSICAL EXAM: GENERAL: alert and oriented laying on her side covered in feces, fatigued appearing Head: normocephalic and atraumatic EYES: No injection, discharge or icterus. PERRL, EOMI. NECK: Trachea midline. ENT: Mucous membranes pink and moist. LUNGS: Airway patent. No retractions. Breath sounds clear with good air entry bilaterally. HEART: Regular rate and rhythm. No chest wall tenderness ABDOMEN: Soft and non-tender, without guarding or rebound. Soiled diarrhea underwear noted with diffuse feces in the buttock region. Nonbloody. SKIN: Acyanotic, warm, dry, without rashes EXTREMITIES: Without swelling, tenderness or deformity with however dried feces present on the legs as well as the hands. NEUROLOGICAL: No focal deficits. No aphasia. No facial droop or slurred speech. Normal strength and tone in the extremities. Sensation to gross touch normal. EK bpm normal sinus rhythm without PVC or PAC. LVH changes with a QTc of 435. No acute ST segment elevation or depression noted with a QTc of 435. CONTINUOUS CARDIAC MONITORING: was ordered and showed a heart rate of 80s-90s bpm in normal sinus rhythm Patient's laboratory studies and imaging reviewed. Differential includes Infection, gastroenteritis/GI disturbance, dehydration, metabolic abnormality, hypo/hyperglycemia, electrolyte disturbance, anemia, hypoxia, cardiac sources, as well as other pathologies. IMPRESSION/MEDICAL DECISION MAKING: Patient with GI symptoms overnight and chronic back pain. No to be hypoxic h ere. X-ray concerning for possible left-sided consolidation question aspiration given her history of nausea and vomiting. Sent for CT scan of the abdomen pelvis. Not having focal neurological symptoms. No trauma reported. Doubt acute ACS or acute CVA. Basic labs sent. Given a small amount of fentanyl initially for pain and Unasyn for antibiotic coverage given concerns for aspiration causing pneumonia. Nonbloody nature makes me think this is not a GI bleed. Given some IV hydration as well. Blood blood cell count high normal range. Mild anemia slightly improved today. CKD may be just slightly worse than normal at 2.19 today. Again given some IV fluid hydration. No evidence of acute hepatitis or pancreatitis based on labs. CK just above normal but doubt this truly represents rhabdomyolysis at this point. Troponin elevation likely demand. And allergy to aspirin. Discussed w ith patient staying for further care given her oxygen requirement aspiration as well as the diarrheal symptoms. Given additional IV hydration. Discussed with the hospitalist for further care here. DIAGNOSIS: Gastroenteritis, weakness, aspiration pneumonia DISPOSITION: Hospitalist will evaluate Patient was agreeable with this plan. Past Med/Surg History Medical History Anxiety CKD (chronic kidney disease), stage III Depression Elevated troponin I level Glaucoma Herniated lumbar disc without myelopathy Left central disc herniation at L5-S1 High cholesterol Hypertension Hypertensive emergency Hypothyroidism Lumbar radiculopathy Neuropathy FEET Osteoarthritis Restless leg syndrome Rheumatoid arthritis FOLLOWS DR. TREVINO Rotator cuff tear, left Spinal stenosis, lumbar region with neurogenic claudication Surgical History History of carpal tunnel release RIGHT HAND History of total bilateral knee replacement (TKR) Hx laparoscopic cholecystectomy Hx of arthroscopy RIGHT KNEE (MENISCUS) Hx of hysterectomy Hx of tonsillectomy Family History Mother Family history of reaction to anesthesia SLOW TO AWAKEN Social History Smoking Status: Never smoker Second Hand Exposure: No; Hx Alcohol Use: No Hx Substance Use: No Preferred Language: Divehi Communication Ability: Impaired Visual Impairment: No Limitations Police Liaison Required: No Beliefs That Will Affect Care: None marital status: Single Current Living Situation: Alone Current Living Situation Comment: needs 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 How many Children do You have: 0 Feels Safe at Home: Yes Assistive Devices: Cane and Walker Allergies Allergies Allergy/AdvReac Type Severity Reaction Status Date / Time aspirin Allergy Severe ANAPHYLAXIS Verified 06/20/22 19:08 duloxetine [From Cymbalta] Allergy Intermediate Rash Verified 06/20/22 19:08 lisinopril AdvReac Intermediate Cough Verified 06/20/22 19:08 Home Meds Home Medications Medication Instructions Recorded Confirmed levothyroxine 75 mcg tablet 75 mcg PO DAILYBB 11/18/20 06/20/22 pantoprazole 40 mg tablet,delayed 40 mg PO QAM 11/18/20 06/20/22 release nifedipine 90 mg tablet,extended 90 mg PO QAM 05/20/21 06/20/22 release 24 hr hydrocodone 5 mg-acetaminophen 325 1 tab PO Q8H PRN Pain 06/01/21 06/20/22 mg tablet irbesartan 300 mg tablet (Avapro) 300 mg PO QPM 06/01/21 06/20/22 hydralazine 10 mg tablet 10 mg PO DIRECTED PRN SBP >180 09/05/21 06/20/22 prednisone 5 mg tablet 5 mg PO DAILY 09/05/21 06/20/22 gabapentin 600 mg tablet 600 mg PO TID 01/25/22 06/20/22 carvedilol 3.125 mg tablet 3.125 mg PO BID 06/20/22 06/20/22 diclofenac sodium 2 % topical 1 packet topical BID PRN Pain 06/20/22 06/20/22 solution in packet (Pennsaid) famotidine 10 mg tablet 10 mg PO HS 06/20/22 06/20/22 magnesium oxide 500 mg tablet 500 mg PO HS 06/20/22 06/20/22 ropinirole 2 mg tablet 2 mg PO HS 06/20/22 06/20/22 tizanidine 4 mg capsule 4 mg PO HS 06/20/22 06/20/22 Previous Rx's Medication Instructions Recorded escitalopram oxalate 10 mg tablet 10 mg PO QAM #30 tabs 09/09/21 Results & Data (ED) Vital Signs Vital Signs - 24 hr 06/20/22 17:35 06/20/22 17:54 06/20/22 17:54 Pulse Rate 98 H 98 H Pulse Rate [Left Finger] 98 H Pulse Rate from SpO2 Sensor Pulse Rhythm Regular Pulse Rhythm [Left Finger] Pulse Strength Normal Pulse Strength [Left Finger] Normal Respiratory Rate 18 18 18 Respiratory Effort / Characteristics Non-Labored Spontaneous Non-Labored Spontaneous Respiratory Depth Normal Normal Respiratory Pattern Regular Blood Pressure 145/65 H Blood Pressure [Right Arm] 145/65 H Blood Pressure Mean 91 Blood Pressure Mean [Right Arm] 91 Blood Pressure Position Lying Blood Pressure Position [Right Arm] Lying Pulse Oximetry 84 L 84 L 95 Oxygen Delivery Method Room Air Room Air Nasal Cannula Oxygen Flow Rate 4 Fraction of Inspired Oxygen Sepsis Recent Fever Within 48 Hours No Sepsis New/Unexplained Change in Mental Status N/A Sepsis Action Taken by Nursing No Action Required Oxygen Flow Rate - Titration 06/20/22 19:04 06/20/22 20:49 06/20/22 21:40 Pulse Rate 90 Pulse Rate [Left Finger] 95 H Pulse Rate from SpO2 Sensor Pulse Rhythm Pulse Rhythm [Left Finger] Regular Pulse Strength Pulse Strength [Left Finger] Normal Respiratory Rate 20 Respiratory Effort / Characteristics Non-Labored Spontaneous Respiratory Depth Normal Respiratory Pattern Regular Blood Pressure Blood Pressure [Right Arm] Blood Pressure Mean Blood Pressure Mean [Right Arm] Blood Pressure Position Blood Pressure Position [Right Arm] Pulse Oximetry 95 Oxygen Delivery Method Nasal Cannula Oxygen Flow Rate 4 4 Fraction of Inspired Oxygen 100 Sepsis Recent Fever Within 48 Hours Sepsis New/Unexplained Change in Mental Status Sepsis Action Taken by Nursing Oxygen Flow Rate - Titration 3 06/20/22 19:02 06/20/22 19:10 06/20/22 19:32 Pulse Rate 91 H 97 H 95 H Pulse Rate [Left Finger] Pulse Rate from SpO2 Sensor 90 98 H 95 H Pulse Rhythm Pulse Rhythm [Left Finger] Pulse Strength Pulse Strength [Left Finger] Respiratory Rate 23 15 21 Respiratory Effort / Characteristics Respiratory Depth Respiratory Pattern Blood Pressure Blood Pressure [Right Arm] Blood Pressure Mean Blood Pressure Mean [Right Arm] Blood Pressure Position Blood Pressure Position [Right Arm] Pulse Oximetry 92 86 L 91 Oxygen Delivery Method Oxygen Flow Rate Fraction of Inspired Oxygen Sepsis Recent Fever Within 48 Hours Sepsis New/Unexplained Change in Mental Status Sepsis Action Taken by Nursing Oxygen Flow Rate - Titration 06/20/22 19:40 06/20/22 19:50 06/20/22 20:00 Pulse Rate 93 H 95 H 98 H Pulse Rate [Left Finger] Pulse Rate from SpO2 Sensor 94 H 96 H 100 H Pulse Rhythm Pulse Rhythm [Left Finger] Pulse Strength Pulse Strength [Left Finger] Respiratory Rate 19 21 19 Respiratory Effort / Characteristics Respiratory Depth Respiratory Pattern Blood Pressure Blood Pressure [Right Arm] Blood Pressure Mean Blood Pressure Mean [Right Arm] Blood Pressure Position Blood Pressure Position [Right Arm] Pulse Oximetry 90 97 91 Oxygen Delivery Method Oxygen Flow Rate Fraction of Inspired Oxygen Sepsis Recent Fever Within 48 Hours Sepsis New/Unexplained Change in Mental Status Sepsis Action Taken by Nursing Oxygen Flow Rate - Titration 06/20/22 20:10 06/20/22 20:20 06/20/22 20:30 Pulse Rate 95 H 93 H 94 H Pulse Rate [Left Finger] Pulse Rate from SpO2 Sensor 94 H 94 H 94 H Pulse Rhythm Pulse Rhythm [Left Finger] Pulse Strength Pulse Strength [Left Finger] Respiratory Rate 29 H 18 18 Respiratory Effort / Characteristics Respiratory Depth Respiratory Pattern Blood Pressure Blood Pressure [Right Arm] Blood Pressure Mean Blood Pressure Mean [Right Arm] Blood Pressure Position Blood Pressure Position [Right Arm] Pulse Oximetry 97 98 99 Oxygen Delivery Method Oxygen Flow Rate Fraction of Inspired Oxygen Sepsis Recent Fever Within 48 Hours Sepsis New/Unexplained Change in Mental Status Sepsis Action Taken by Nursing Oxygen Flow Rate - Titration 06/20/22 20:40 06/20/22 20:50 06/20/22 20:51 Pulse Rate 105 H 94 H 96 H Pulse Rate [Left Finger] Pulse Rate from SpO2 Sensor 103 H 95 H 96 H Pulse Rhythm Pulse Rhythm [Left Finger] Pulse Strength Pulse Strength [Left Finger] Respiratory Rate 17 20 19 Respiratory Effort / Characteristics Respiratory Depth Respiratory Pattern Blood Pressure Blood Pressure [Right Arm] Blood Pressure Mean Blood Pressure Mean [Right Arm] Blood Pressure Position Blood Pressure Position [Right Arm] Pulse Oximetry 99 95 97 Oxygen Delivery Method Oxygen Flow Rate Fraction of Inspired Oxygen Sepsis Recent Fever Within 48 Hours Sepsis New/Unexplained Change in Mental Status Sepsis Action Taken by Nursing Oxygen Flow Rate - Titration 06/20/22 20:51 06/20/22 21:00 06/20/22 21:10 Pulse Rate 94 H 92 H Pulse Rate [Left Finger] Pulse Rate from SpO2 Sensor 94 H 92 H Pulse Rhythm Pulse Rhythm [Left Finger] Pulse Strength Pulse Strength [Left Finger] Respiratory Rate 27 H 18 Respiratory Effort / Characteristics Respiratory Depth Respiratory Pattern Blood Pressure 137/65 Blood Pressure [Right Arm] Blood Pressure Mean 89 Blood Pressure Mean [Right Arm] Blood Pressure Position Blood Pressure Position [Right Arm] Pulse Oximetry 98 100 Oxygen Delivery Method Oxygen Flow Rate Fraction of Inspired Oxygen Sepsis Recent Fever Within 48 Hours Sepsis New/Unexplained Change in Mental Status Sepsis Action Taken by Nursing Oxygen Flow Rate - Titration 06/20/22 21:20 06/20/22 21:30 06/20/22 21:40 Pulse Rate 94 H 96 H 102 H Pulse Rate [Left Finger] Pulse Rate from SpO2 Sensor 94 H 97 H 100 H Pulse Rhythm Pulse Rhythm [Left Finger] Pulse Strength Pulse Strength [Left Finger] Respiratory Rate 18 18 21 Respiratory Effort / Characteristics Respiratory Depth Respiratory Pattern Blood Pressure Blood Pressure [Right Arm] Blood Pressure Mean Blood Pressure Mean [Right Arm] Blood Pressure Position Blood Pressure Position [Right Arm] Pulse Oximetry 100 100 99 Oxygen Delivery Method Oxygen Flow Rate Fraction of Inspired Oxygen Sepsis Recent Fever Within 48 Hours Sepsis New/Unexplained Change in Mental Status Sepsis Action Taken by Nursing Oxygen Flow Rate - Titration 06/20/22 21:50 06/20/22 22:00 Pulse Rate 97 H 98 H Pulse Rate [Left Finger] Pulse Rate from SpO2 Sensor 97 H 99 H Pulse Rhythm Pulse Rhythm [Left Finger] Pulse Strength Pulse Strength [Left Finger] Respiratory Rate 27 H 13 Respiratory Effort / Characteristics Respiratory Depth Respiratory Pattern Blood Pressure Blood Pressure [Right Arm] Blood Pressure Mean Blood Pressure Mean [Right Arm] Blood Pressure Position Blood Pressure Position [Right Arm] Pulse Oximetry 95 97 Oxygen Delivery Method Oxygen Flow Rate Fraction of Inspired Oxygen Sepsis Recent Fever Within 48 Hours Sepsis New/Unexplained Change in Mental Status Sepsis Action Taken by Nursing Oxygen Flow Rate - Titration Laboratory Data 06/20/22 18:46 06/20/22 18:46 Lab Results 06/20/22 06/20/22 06/20/22 Range/Units 18:46 18:46 18:58 WBC 10.34 (4.8-10.8) K/ul RBC 3.62 L (4.20-5.40) M/uL Hgb 10.8 L (12.0-16.0) g/dl Hct 34.6 L (37.0-47.0) % MCV 95.6 (80.0-100.0) fL MCH 29.8 (25.0-34.0) pg MCHC 31.2 L (32.0-36.0) g/dL RDW Std Deviation 56.0 H (36.4-46.3) fL RDW Coeff of Mario 16.0 H (11.5-14.5) % Plt Count 258 (130-400) K/uL MPV 9.4 (9.4-12.4) fL Immature Gran % (Auto) 1.1 % Neut % (Auto) 80.8 % Lymph % (Auto) 9.9 % [place] % (Auto) 7.0 % Eos % (Auto) 0.5 % Baso % (Auto) 0.7 % Neut # (Auto) 8.37 H (1.40-6.50) K/uL Lymph # (Auto) 1.02 L (1.2-3.4) K/uL [place] # (Auto) 0.72 H (0.11-0.59) K/uL Eos # (Auto) 0.05 (0-0.50) K/uL Baso # (Auto) 0.07 (0-0.2) K/uL Immature Gran # (Auto) 0.11 (0.01-0.20) K/uL Absolute Nucleated RBC 0.02 (0-0.12) K/uL Nucleated RBC % (auto) 0.2 % ABG pH (7.35-7.45) ABG pCO2 (35-46) mmHg ABG pO2 (80-95) mmHg ABG HCO3 (19-24) mmol/L ABG O2 Saturation (90-95) % ABG Base Excess (-9-1.8) mEq/L Adria Test (Pos) Oxygen Given Sodium 144 (136-145) mmol/L Potassium 4.2 (3.5-5.1) mmol/L Chloride 111 H (98-107) mmol/L Carbon Dioxide 22 (21-32) mmol/L Anion Gap 11 (3-11) BUN 59 H (6-23) mg/dl Creatinine 2.19 H (0.6-1.2) mg/dl Est Cr Clr Drug Dosing 20.6 ml/min Est GFR ( Amer) 24.1 ml/min Est GFR (Non-Af Amer) 20.8 ml/min BUN/Creatinine Ratio 26.9 H (10-20) Glucose 112 H (70-99(Fasting)) mg/dl Calcium 8.1 L (8.6-10.3) mg/dl Magnesium 1.9 (1.7-2.4) mg/dl Total Bilirubin 1.1 H (0.2-1.0) mg/dl AST 29 (13-39) U/L ALT 26 (7-52) U/L Alkaline Phosphatase 45 (34-104) U/L Total Creatine Kinase 225 H (26-192) U/L Troponin I High Sens 157.4 H* (0-14) pg/ml Total Protein 5.6 L (6.0-8.3) gm/dl Albumin 3.3 L (3.4-5.0) gm/dl Globulin 2.3 L (2.5-4.0) gm/dl Albumin/Globulin Ratio 1.4 (0.9-2) Lipase 21 (11-82) U/L SARS-CoV-2, RNA, NAAT NEGATIVE (NEGATIVE) 06/20/22 06/20/22 Range/Units 20:52 20:52 WBC (4.8-10.8) K/ul RBC (4.20-5.40) M/uL Hgb (12.0-16.0) g/dl Hct (37.0-47.0) % MCV (80.0-100.0) fL MCH (25.0-34.0) pg MCHC (32.0-36.0) g/dL RDW Std Deviation (36.4-46.3) fL RDW Coeff of Mario (11.5-14.5) % Plt Count (130-400) K/uL MPV (9.4-12.4) fL Immature Gran % (Auto) % Neut % (Auto) % Lymph % (Auto) % [place] % (Auto) % Eos % (Auto) % Baso % (Auto) % Neut # (Auto) (1.40-6.50) K/uL Lymph # (Auto) (1.2-3.4) K/uL [place] # (Auto) (0.11-0.59) K/uL Eos # (Auto) (0-0.50) K/uL Baso # (Auto) (0-0.2) K/uL Immature Gran # (Auto) (0.01-0.20) K/uL Absolute Nucleated RBC (0-0.12) K/uL Nucleated RBC % (auto) % ABG pH 7.30 L (7.35-7.45) ABG pCO2 39 (35-46) mmHg ABG pO2 91 (80-95) mmHg ABG HCO3 19 (19-24) mmol/L ABG O2 Saturation 95.5 H (90-95) % ABG Base Excess -6.7 (-9-1.8) mEq/L Adria Test Pos (Pos) Oxygen Given 4L Sodium (136-145) mmol/L Potassium (3.5-5.1) mmol/L Chloride (98-107) mmol/L Carbon Dioxide (21-32) mmol/L Anion Gap (3-11) BUN (6-23) mg/dl Creatinine (0.6-1.2) mg/dl Est Cr Clr Drug Dosing ml/min Est GFR ( Amer) ml/min Est GFR (Non-Af Amer) ml/min BUN/Creatinine Ratio (10-20) Glucose (70-99(Fasting)) mg/dl Calcium (8.6-10.3) mg/dl Magnesium (1.7-2.4) mg/dl Total Bilirubin (0.2-1.0) mg/dl AST (13-39) U/L ALT (7-52) U/L Alkaline Phosphatase (34-104) U/L Total Creatine Kinase (26-192) U/L Troponin I High Sens 183.5 H* (0-14) pg/ml Total Protein (6.0-8.3) gm/dl Albumin (3.4-5.0) gm/dl Globulin (2.5-4.0) gm/dl Albumin/Globulin Ratio (0.9-2) Lipase (11-82) U/L SARS-CoV-2, RNA, NAAT (NEGATIVE) Administered Medications Sodium Chloride (1/2 Nss) 1,000 mls @ 200 mls/hr IV .Q5H ONE Stop: 06/21/22 02:14 Last Admin: 06/20/22 22:35 Dose: 200 mls/hr Documented By: OCCUPATIONAL HEALTH NURSE SUPERVISOR Discontinued Medications Fentanyl Citrate (Fentanyl Citrate Pf 100 Mcg/2 Ml Vial) 50 mcg IV NOW STA Stop: 06/20/22 19:18 Last Admin: 06/20/22 19:33 Dose: 50 mcg Documented By: OCCUPATIONAL HEALTH NURSE SUPERVISOR Fentanyl Citrate (Fentanyl Citrate Pf 100 Mcg/2 Ml Vial) 25 mcg IV NOW STA Stop: 06/20/22 20:04 Last Admin: 06/20/22 20:54 Dose: 25 mcg Documented By: OCCUPATIONAL HEALTH NURSE SUPERVISOR Sodium Chloride (Nss 1000ml) 1,000 mls @ 999 mls/hr IV .Q1H1M AMARI Stop: 06/20/22 19:00 Last Infusion: 06/20/22 21:39 Dose: 0 mls/hr Documented By: OCCUPATIONAL HEALTH NURSE SUPERVISOR Admin: 06/20/22 19:13 Dose: 999 mls/hr Documented By: OCCUPATIONAL HEALTH NURSE SUPERVISOR Ampicillin Sodium/Sulbactam Sodium 3,000 mg/ Sodium Chloride 108 mls @ 200 mls/hr IV NOW STA; Protocol Stop: 06/20/22 19:49 Last Infusion: 06/20/22 21:39 Dose: 0 mls/hr Documented By: OCCUPATIONAL HEALTH NURSE SUPERVISOR Admin: 06/20/22 21:01 Dose: 200 mls/hr Documented By: OCCUPATIONAL HEALTH NURSE SUPERVISOR Sodium Chloride (Nss 1000ml) 1,000 mls @ 999 mls/hr IV .Q1H1M ONE Stop: 06/20/22 21:04 Last Admin: 06/20/22 21:06 Dose: Not Given Documented By: OCCUPATIONAL HEALTH NURSE SUPERVISOR Methylprednisolone 40 mg/ (Syringe) 0.64 mls @ 1.5 mls/min IV NOW STA Stop: 06/20/22 21:01 Last Admin: 06/20/22 22:35 Dose: 1.5 mls/min Documented By: OCCUPATIONAL HEALTH NURSE SUPERVISOR Magnesium Sulfate/Dextrose (Magnesium Sulfate / D5w) 1 gm in 100 mls @ 50 mls/hr IV ONE ONE Stop: 06/20/22 22:59 Last Admin: 06/20/22 22:35 Dose: 50 mls/hr Documented By: OCCUPATIONAL HEALTH NURSE SUPERVISOR Sodium Chloride (1/2 Nss) 1,000 mls @ 100 mls/hr IV .Q10H ONE Stop: 06/21/22 08:06 Last Admin: 06/20/22 22:53 Dose: Not Given Documented By: OCCUPATIONAL HEALTH NURSE SUPERVISOR Ondansetron HCl (Ondansetron Inj 2 Mg/Ml 2 Ml Vial) 4 mg IV NOW STA Stop: 06/20/22 17:54 Last Admin: 06/20/22 19:13 Dose: 4 mg Documented By: OCCUPATIONAL HEALTH NURSE SUPERVISOR Imaging Data Radiologist's Impression: Abdomen/Pelvis CT 06/20/22 17:[address] WITHOUT CONTRAST CT DOSE: 469.73 mGy.cm HISTORY: Acute vomiting with diarrhea vomiting, diarrhea TECHNIQUE: Multiaxial CT images of the abdomen and pelvis were performed without contrast. A dose lowering technique was utilized adhering to the principles of ALARA. COMPARISON STUDY: MRI lumbar spine 03/16/2021, chest radiograph 06/20/2022 FINDINGS: Mild cardiomegaly. Trace left pleural effusion. Dense airspace consolidation of the left lung base with mild additional scattered ground glass opacities of the right lung base. No pneumatosis or pneumoperitoneum. The unenhanced spleen, pancreas and adrenal glands are unremarkable. Cholecystectomy. Unremarkable liver. Mild cortical thinning of the kidneys. No urolith or hydronephrosis. Urinary bladder wall thickening with partial distention. Hysterectomy. No abdominal aortic aneurysm or lymphadenopathy. Small to moderate hiatal hernia. No bowel obstruction or bowel wall thickening. Colonic diverticulosis. No ascites or mesenteric inflammation. Appendix appears noninflamed. Unremarkable soft tissues. Small fat filled right inguinal hernia. Degenerative changes of the spine, pelvis and hips. Circumferential annular disc bulging with posterior disc osteophyte complex at L2-L3 results in at least moderate central canal stenosis. IMPRESSION: 1. Left basilar pneumonia with trace parapneumonic effusion. 2. Small to moderate hiatal hernia. 3. No bowel obstruction or bowel wall thickening. 4. Colonic diverticulosis. 5. Small fat filled right inguinal hernia. 6. Additional findings as above. ACT 112: Negative or not required by law. The above report was generated using voice recognition software. It may contain grammatical, syntax or spelling errors. Electronically signed by: Nic Winters M.D. 06/20/2022 8:17 PM Chest X-Ray 06/20/22 18:53 XR chest 1V portable HISTORY: 81 years-old Female nausea, hypoxia acute hypoxia COMPARISON: CT abdomen and pelvis of same day, chest radiograph 09/05/2021 TECHNIQUE: AP view of the chest FINDINGS: Cardiac silhouette is mildly enlarged. Dense airspace consolidations are noted throughout the left lung. Small left pleural effusion. Hiatal hernia. Unchanged elevation of the distal right clavicle. Degenerative changes of the shoulders and spine. IMPRESSION: 1. Multilobar pneumonia of the left lung with small left parapneumonic effusion. 2. Hiatal hernia. ACT 112: Negative or not required by law. The above report was generated using voice recognition software. It may contain grammatical, syntax or spelling errors. Electronically signed by: Nic Winters M.D. 06/20/2022 8:39 PM Discharge Plan Visit Data Chief Complaint: Illness Stated Complaint: weak, V/D ED Provider: Steven Lai Discharge Problem: Gastroenteritis, Weakness, Elevated troponin, Aspiration pneumonia, Hypoxia Patient Disposition: Admitted As Inpatient Discharge Instructions Interventions: ED Discharge Assessment Last Done: 06/20/22 23:01
[2022-06-20 19:43] LABS: Hematocrit (blood only) 34.6 % (37.0-47.0); Hemoglobin 10.8 g/dl (12.0-16.0); Mean Corpuscular Hemoglobin 29.8 pg (25.0-34.0); Mean Corpuscular Hgb Conc 31.2 g/dL (32.0-36.0); Mean Corpuscular Volume 95.6 fL (80.0-100.0); Mean Platelet Volume 9.4 fL (9.4-12.4); Nucleated RBC # (auto) 0.02 K/uL (0-0.12); Nucleated RBC % (auto) 0.2 %; Platelet Count 258 K/uL (130-400); Red Blood Count 3.62 M/uL (4.20-5.40); White Blood Count 10.34 K/ul (4.8-10.8)
[2022-06-20 19:46] LABS: Albumin Globulin Ratio 1.4 (0.9-2); Albumin Level 3.3 gm/dl (3.4-5.0); BUN Creatinine Ratio 26.9 (10-20); Bilirubin,Total 1.1 mg/dl (0.2-1.0); Calcium 8.1 mg/dl (8.6-10.3); Creatinine Clr Calc Pharmacy 20.6 ml/min; Est GFR (African American) 24.1 ml/min; Est GFR (Non-African American) 20.8 ml/min; Globulin 2.3 gm/dl (2.5-4.0); Magnesium 1.9 mg/dl (1.7-2.4); Potassium 4.2 mmol/L (3.5-5.1); Total Protein 5.6 gm/dl (6.0-8.3)
[2022-06-20 20:00] LABS: Troponin I High Sensitivity 157.4 pg/ml (0-14)
[2022-06-20] MEDS ORDERED: SODIUM CHLORIDE 0.9% 1000ML 1,000 ML IV ONE (20:04)
[2022-06-20 20:16] LABS: Basophils # (auto) 0.07 K/uL (0-0.2); Basophils % (auto) 0.7 %; Eosinophils # (auto) 0.05 K/uL (0-0.50); Eosinophils % (auto) 0.5 %; Immature Granulocytes # (auto) 0.11 K/uL (0.01-0.20); Immature Granulocytes % (auto) 1.1 %; Lymphocytes # (auto) 1.02 K/uL (1.2-3.4); Lymphocytes % (auto) 9.9 %; Monocytes # (auto) 0.72 K/uL (0.11-0.59); Neutrophils # (auto) 8.37 K/uL (1.40-6.50); Neutrophils % (auto) 80.8 %
--- NOTE | 2022-06-20 20:19 | CT Scan Report ---
ABDOMEN AND PELVIS CT WITHOUT CONTRAST CT DOSE: 469.73 mGy.cm HISTORY: Acute vomiting with diarrhea vomiting, diarrhea TECHNIQUE: Multiaxial CT images of the abdomen and pelvis were performed without contrast. A dose lo wering technique was utilized adhering to the principles of ALARA. COMPARISON STUDY: MRI lumbar spine 03/16/2021, chest radiograph 06/20/2022 FINDINGS: Mild cardiomegaly. Trace left pleural effusion. Dense airspace consolidation of the left christopher ng base with mild additional scattered ground glass opacities of the right lung base. No pneumatosis or pneumoperitoneum. The unenhanced spleen, pancreas and adrenal glands are unremarkable. Cholecystec apoorva. Unremarkable liver. Mild cortical thinning of the kidneys. No urolith or hydronephrosis. Urinary bladder wall thickening with partial distention. Hysterectomy. No abdominal aortic aneurysm or lymphadenopathy. Small to mode rate hiatal hernia. No bowel obstruction or bowel wall thickening. Colonic diverticulosis. No ascites or mesenteric inflammation. Appendix appears noninflamed. Unremarkable soft tissues. Small fat fille d right inguinal hernia. Degenerative changes of the spine, pelvis and hips. Circumferential annular disc bulging with posterior disc osteophyte complex at L2-L3 results in at least moderate central can al stenosis. IMPRESSION: 1. Left basilar pneumonia with trace parapneumonic effusion. 2. Small to moderate hiatal hernia. 3. No bowel obstruction or bowel wall thickening. 4. Colonic diverticulosis. 5. Small fat filled right inguinal hernia. 6. Additional findings as above. ACT 112: Negative or not required by law. The above report was generated using voice recognition software. It may contain grammatical, syntax o r spelling errors. Electronically signed by: Nic Winters M.D. 06/20/2022 8:17 PM
--- NOTE | 2022-06-20 20:40 | XRay Report ---
XR chest 1V portable HISTORY: 81 years-old Female nausea, hypoxia acute hypoxia COMPARISON: CT abdomen and pelvis of same day, chest radiograph 09/05/2021 TECHNIQUE: AP view of the chest FINDINGS: Cardiac silhouette is mildly enlarged. Dense airspace consolidations are noted throughout the left christopher ng. Small left pleural effusion. Hiatal hernia. Unchanged elevation of the distal right clavicle. Deg enerative changes of the shoulders and spine. IMPRESSION: 1. Multilobar pneumonia of the left lung with small left parapneumonic effusion. 2. Hiatal hernia. ACT 112: Negative or not required by law. The above report was generated using voice recognition software. It may contain grammatical, syntax o r spelling errors. Electronically signed by: Nic Winters M.D. 06/20/2022 8:39 PM
[2022-06-20] MEDS ORDERED: methylPREDNISolone 40 MG in SYRINGE 0 ML IV STA (21:00)
[2022-06-20] MEDS ORDERED: MAGNESIUM SULFATE / D5W 1 GM/100 ML BAG IV ONE (21:00)
[2022-06-20 21:12] LABS: Base Excess ABG -6.7 mEq/L (-9-1.8); HCO3 ABG 19 mmol/L (19-24); Oxygen Saturation ABG 95.5 % (90-95); PCO2 ABG 39 mmHg (35-46); PO2 ABG 91 mmHg (80-95)
[2022-06-20 21:13] LABS: Allen Test Pos (Pos)
[2022-06-20] MEDS ORDERED: SODIUM CHLORIDE 0.45 % 1,000 ML IV ONE ×2 (21:15→22:07)
[2022-06-20] MEDS ORDERED: DOXYCYCLINE HYCLATE 100 MG in DEXTROSE 5% 100 ML IV STA (21:59)
--- NOTE | 2022-06-20 22:00 | History & Physical Report ---
Date of Service June 20, 2022 Assessment & Plan (1) Acute hypoxemic respiratory failure: Plan: Secondary to complicated pneumonia, community-acquired infection Immunocompromised patient, hx chronic steroid Rx for RA Patient not septic. Diarrhea symptoms rule out infectious causes that may warrant treatment ARF on CKD secondary to illness Troponin elevation secondary to illness in the setting of kidney dysfunction hypertension, patient initially hypotensive at home, BP currently stable hyperparathyroidism as per records, patient follows w G nephrology hypothyroidism, unknown control chronic anemia, hemoglobin better than baseline likely secondary to h emoconcentration anxiety/mood disorder, at baseline possible functional disability Medical telemetry supplemental O2 Solu-Medrol 1 dose now for bronchopneumonia given hypoxemia Ceftriaxone, Doxycycline Pulmonary consult if without improvement stool CS, C. difficile Baseline UA, monitor creatinine response to IVF, hold ARB until creatinine back to baseline PT OT eval once medically stable DVT prophylaxis. Heparin subcu Full code Patient request for her friend to be given updates regarding her care as needed. Ms. Barbara Varela, contact #[phone]. Total critical care time was 45 minutes. Text document was generated using [employer] voice recognition software. It may contain grammatical or spelling errors. Kindly contact undersigned for clarification of any documentation item in question. History of Present Illness Chief Complaint: Weakness, cough, vomiting, diarrhea Primary Care Provider: Kj Minor MD History obtained from patient and records. 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 Last confinement September 2021 for hypertensive urgency. 3 days history of junky cough symptoms followed by nausea/emesis/watery diarrhea/abdominal pain symptoms. Patient denies aspiration. Possible sick contacts. Patient denies chest pain, SOB, headache. Patient completed COVID-19 vaccination. EMS called to patient's home by patient's friend. Home door had to be broken down by EMS. Patient found to be covered with feces. IV Unasyn administered at the ER. Medical Historyas above Surgical History : Knee surgeries, cholecystectomy, tonsillectomy, hysterectomy Family History : Heart disease, RA Personal/Social history : Non-smoker, occasional EtOH intake, retired [employer] employee Allergies Allergy/AdvReac Type Severity Reaction Status Date / Time aspirin Allergy Severe ANAPHYLAXIS Verified 06/20/22 19:08 duloxetine [From Cymbalta] Allergy Intermediate Rash Verified 06/20/22 19:08 lisinopril AdvReac Intermediate Cough Verified 06/20/22 19:08 Home Medications Medication Instructions Recorded Confirmed Type levothyroxine 75 mcg tablet 75 mcg PO DAILYBB 11/18/20 06/20/22 History pantoprazole 40 mg tablet,delayed 40 mg PO QAM 11/18/20 06/20/22 History release nifedipine 90 mg tablet,extended 90 mg PO QAM 05/20/21 06/20/22 History release 24 hr hydrocodone 5 mg-acetaminophen 325 1 tab PO Q8H PRN Pain 06/01/21 06/20/22 History mg tablet irbesartan 300 mg tablet (Avapro) 300 mg PO QPM 06/01/21 06/20/22 History hydralazine 10 mg tablet 10 mg PO DIRECTED PRN SBP >180 09/05/21 06/20/22 History prednisone 5 mg tablet 5 mg PO DAILY 09/05/21 06/20/22 History escitalopram oxalate 10 mg tablet 10 mg PO QAM #30 tabs 09/09/21 06/20/22 Rx gabapentin 600 mg tablet 600 mg PO TID 01/25/22 06/20/22 History carvedilol 3.125 mg tablet 3.125 mg PO BID 06/20/22 06/20/22 History diclofenac sodium 2 % topical 1 packet topical BID PRN Pain 06/20/22 06/20/22 History solution in packet (Pennsaid) famotidine 10 mg tablet 10 mg PO HS 06/20/22 06/20/22 History magnesium oxide 500 mg tablet 500 mg PO HS 06/20/22 06/20/22 History ropinirole 2 mg tablet 2 mg PO HS 06/20/22 06/20/22 History tizanidine 4 mg capsule 4 mg PO HS 06/20/22 06/20/22 History Past Med/Surg History Medical History Anxiety CKD (chronic kidney disease), stage III Depression Elevated troponin I level Glaucoma Herniated lumbar disc without myelopathy Left central disc herniation at L5-S1 High cholesterol Hypertension Hypertensive emergency Hypothyroidism Lumbar radiculopathy Neuropathy FEET Osteoarthritis Restless leg syndrome Rheumatoid arthritis FOLLOWS DR. TREVINO Rotator cuff tear, left Spinal stenosis, lumbar region with neurogenic claudication Surgical History History of carpal tunnel release RIGHT HAND History of total bilateral knee replacement (TKR) Hx laparoscopic cholecystectomy Hx of arthroscopy RIGHT KNEE (MENISCUS) Hx of hysterectomy Hx of tonsillectomy Family History Mother Family history of reaction to anesthesia SLOW TO AWAKEN Social History Smoking Status: Never smoker Second Hand Exposure: No; Hx Alcohol Use: Yes Alcohol type: other Hx Substance Use: No Preferred Language: Romanian Communication Ability: Effective Visual Impairment: No Limitations Breakfast Hostess Required: No Beliefs That Will Affect Care: None marital status: Single Current Living Situation: Alone Current Living Situation Comment: needs 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 How many Children do You have: 0 Other Information That Helps Us Care for You: No Feels Safe at Home: Yes Safety Concerns: Feels Safe At This Time Assistive Devices: Cane and Glasses Assistive Devices Comment: glasses Review of Systems Review of Systems: As per HPI, all other systems reviewed and negative Physical Exam Physical Exam: GENERAL: uncomfortable, anxious, obese, unkempt, no respiratory distress SKIN: Pallor, warm HEENT: Pale palpebral conjunctivae, no ptosis, dry buccal mucosa, nasal cannula in place NECK : Supple, short neck, no tenderness CHEST : Decreased breath sounds, no tenderness HEART : RRR, no obvious murmurs ABDOMEN: Some distention, nontender EXTREMITIES : Minimal LE swelling, chronic hip tenderness, no other conspicuous deformities noted NEUROLOGIC : Coherent, no facial asymmetry, mild hearing impairment, gait and stance not assessed Results & Data Results & Data Vital Signs (Past 12 Hours) Vital Signs Pulse Pulse Resp BP BP Pulse Ox O2 Del Method 06/20/22 21:40 06/20/22 20:49 95 H 20 95 Nasal Cannula 06/20/22 19:04 90 06/20/22 17:54 98 H 18 95 Nasal Cannula 06/20/22 17:54 98 H 18 145/65 H 84 L Room Air 06/20/22 17:35 98 H 18 145/65 H 84 L Room Air O2 Flow Rate FiO2 06/20/22 21:40 4 100 06/20/22 20:49 4 06/20/22 19:04 06/20/22 17:54 4 06/20/22 17:54 06/20/22 17:35 Laboratory Results Laboratory Results WBC 10.34 K/ul (4.8-10.8) 06/20/22 18:46 RBC 3.62 M/uL (4.20-5.40) L 06/20/22 18:46 Hgb 10.8 g/dl (12.0-16.0) L 06/20/22 18:46 Hct 34.6 % (37.0-47.0) L 06/20/22 18:46 MCV 95.6 fL (80.0-100.0) 06/20/22 18:46 MCH 29.8 pg (25.0-34.0) 06/20/22 18:46 MCHC 31.2 g/dL (32.0-36.0) L 06/20/22 18:46 RDW Std Deviation 56.0 fL (36.4-46.3) H 06/20/22 18:46 RDW Coeff of Mario 16.0 % (11.5-14.5) H 06/20/22 18:46 Plt Count 258 K/uL (130-400) 06/20/22 18:46 MPV 9.4 fL (9.4-12.4) 06/20/22 18:46 Immature Gran % (Auto) 1.1 % 06/20/22 18:46 Neut % (Auto) 80.8 % 06/20/22 18:46 Lymph % (Auto) 9.9 % 06/20/22 18:46 Coal % (Auto) 7.0 % 06/20/22 18:46 Eos % (Auto) 0.5 % 06/20/22 18:46 Baso % (Auto) 0.7 % 06/20/22 18:46 Neut # (Auto) 8.37 K/uL (1.40-6.50) H 06/20/22 18:46 Lymph # (Auto) 1.02 K/uL (1.2-3.4) L 06/20/22 18:46 Coal # (Auto) 0.72 K/uL (0.11-0.59) H 06/20/22 18:46 Eos # (Auto) 0.05 K/uL (0-0.50) 06/20/22 18:46 Baso # (Auto) 0.07 K/uL (0-0.2) 06/20/22 18:46 Immature Gran # (Auto) 0.11 K/uL (0.01-0.20) 06/20/22 18:46 Absolute Nucleated RBC 0.02 K/uL (0-0.12) 06/20/22 18:46 Nucleated RBC % (auto) 0.2 % 06/20/22 18:46 ABG pH 7.30 (7.35-7.45) L 06/20/22 20:52 ABG pCO2 39 mmHg (35-46) 06/20/22 20:52 ABG pO2 91 mmHg (80-95) 06/20/22 20:52 ABG HCO3 19 mmol/L (19-24) 06/20/22 20:52 ABG O2 Saturation 95.5 % (90-95) H 06/20/22 20:52 ABG Base Excess -6.7 mEq/L (-9-1.8) 06/20/22 20:52 Adria Test Pos (Pos) 06/20/22 20:52 Oxygen Given 4L 06/20/22 20:52 Sodium 144 mmol/L (136-145) 06/20/22 18:46 Potassium 4.2 mmol/L (3.5-5.1) 06/20/22 18:46 Chloride 111 mmol/L (98-107) H 06/20/22 18:46 Carbon Dioxide 22 mmol/L (21-32) 06/20/22 18:46 Anion Gap 11 (3-11) 06/20/22 18:46 BUN 59 mg/dl (6-23) H 06/20/22 18:46 Creatinine 2.19 mg/dl (0.6-1.2) H 06/20/22 18:46 Est Cr Clr Drug Dosing 20.6 ml/min 06/20/22 18:46 Est GFR ( Amer) 24.1 ml/min 06/20/22 18:46 Est GFR (Non-Af Amer) 20.8 ml/min 06/20/22 18:46 BUN/Creatinine Ratio 26.9 (10-20) H 06/20/22 18:46 Glucose 112 mg/dl (70-99(Fasting)) H 06/20/22 18:46 Calcium 8.1 mg/dl (8.6-10.3) L 06/20/22 18:46 Magnesium 1.9 mg/dl (1.7-2.4) 06/20/22 18:46 Total Bilirubin 1.1 mg/dl (0.2-1.0) H 06/20/22 18:46 AST 29 U/L (13-39) 06/20/22 18:46 ALT 26 U/L (7-52) 06/20/22 18:46 Alkaline Phosphatase 45 U/L (34-104) 06/20/22 18:46 Total Creatine Kinase 225 U/L (26-192) H 06/20/22 18:46 Troponin I High Sens 183.5 pg/ml (0-14) H* 06/20/22 20:52 Total Protein 5.6 gm/dl (6.0-8.3) L 06/20/22 18:46 Albumin 3.3 gm/dl (3.4-5.0) L 06/20/22 18:46 Globulin 2.3 gm/dl (2.5-4.0) L 06/20/22 18:46 Albumin/Globulin Ratio 1.4 (0.9-2) 06/20/22 18:46 Lipase 21 U/L (11-82) 06/20/22 18:46 SARS-CoV-2, RNA, NAAT NEGATIVE (NEGATIVE) 06/20/22 18:58 Impressions Abdomen/Pelvis CT 06/20/22 17:[address] WITHOUT CONTRAST CT DOSE: 469.73 mGy.cm HISTORY: Acute vomiting with diarrhea vomiting, diarrhea TECHNIQUE: Multiaxial CT images of the abdomen and pelvis were performed without contrast. A dose lowering technique was utilized adhering to the principles of ALARA. COMPARISON STUDY: MRI lumbar spine 03/16/2021, chest radiograph 06/20/2022 FINDINGS: Mild cardiomegaly. Trace left pleural effusion. Dense airspace consolidation of the left lung base with mild additional scattered ground glass opacities of the right lung base. No pneumatosis or pneumoperitoneum. The unenhanced spleen, pancreas and adrenal glands are unremarkable. Cholecystectomy. Unremarkable liver. Mild cortical thinning of the kidneys. No urolith or hydronephrosis. Urinary bladder wall thickening with partial distention. Hysterectomy. No abdominal aortic aneurysm or lymphadenopathy. Small to moderate hiatal hernia. No bowel obstruction or bowel wall thickening. Colonic diverticulosis. No ascites or mesenteric inflammation. Appendix appears noninflamed. Unremarkable soft tissues. Small fat filled right inguinal hernia. Degenerative changes of the spine, pelvis and hips. Circumferential annular disc bulging with posterior disc osteophyte complex at L2-L3 results in at least moderate central canal stenosis. IMPRESSION: 1. Left basilar pneumonia with trace parapneumonic effusion. 2. Small to moderate hiatal hernia. 3. No bowel obstruction or bowel wall thickening. 4. Colonic diverticulosis. 5. Small fat filled right inguinal hernia. 6. Additional findings as above. ACT 112: Negative or not required by law. The above report was generated using voice recognition software. It may contain grammatical, syntax or spelling errors. Electronically signed by: Nic Winters M.D. 06/20/2022 8:17 PM Chest X-Ray 06/20/22 18:53 XR chest 1V portable HISTORY: 81 years-old Female nausea, hypoxia acute hypoxia COMPARISON: CT abdomen and pelvis of same day, chest radiograph 09/05/2021 TECHNIQUE: AP view of the chest FINDINGS: Cardiac silhouette is mildly enlarged. Dense airspace consolidations are noted throughout the left lung. Small left pleural effusion. Hiatal hernia. Unchanged elevation of the distal right clavicle. Degenerative changes of the shoulders and spine. IMPRESSION: 1. Multilobar pneumonia of the left lung with small left parapneumonic effusion. 2. Hiatal hernia. ACT 112: Negative or not required by law. The above report was generated using voice recognition software. It may contain grammatical, syntax or spelling errors. Electronically signed by: Nic Winters M.D. 06/20/2022 8:39 PM Diagnostic Findings EKG as per my interpretation : Rate 85, NSR, LAD, LAFB, LVH, no ischemia
[2022-06-20] MEDS ORDERED: PROMETHAZINE HCL 6.25 MG in SODIUM CHLORIDE 0.9% 50 ML IV PRN (22:07)
[2022-06-21] MEDS ORDERED: ACETAMINOPHEN 325 MG TAB PO PRN (00:09)
[2022-06-21] MEDS: carvediloL 3.125 MG TAB PO SCH ×3 (01:04→22:34)
[2022-06-21 01:51] LABS: Adenovirus F 40/41 PCR Not Detected (NotDetected); Astrovirus PCR Not Detected (NotDetected); Campylobacter PCR Not Detected (NotDetected); Cryptosporidium PCR Not Detected (NotDetected); Cyclospora cayetanensis PCR Not Detected (NotDetected); Entamoeba histolytica PCR Not Detected (NotDetected); Enteroaggregative E.coli(EAEC) Not Detected (NotDetected); Enterotoxigenic E.coli (ETEC) Not Detected (NotDetected); Giardia lamblia PCR Not Detected (NotDetected); Norovirus GI/GII PCR Not Detected (NotDetected); Plesiomonas shigelloides PCR Not Detected (NotDetected); Rotavirus A PCR Not Detected (NotDetected); Salmonella PCR Not Detected (NotDetected); Sapovirus PCR Not Detected (NotDetected); Shiga-like Toxin E.coli (STEC) Not Detected (NotDetected); Shigella/Enteroinvasive E.coli Not Detected (NotDetected); Vibrio cholerae PCR Not Detected (NotDetected); Vibrio species PCR Not Detected (NotDetected); Yersinia enterocolitica PCR Not Detected (NotDetected)
[2022-06-21 02:24] LABS: Enteropathogenic E.coli (EPEC) DETECTED (NotDetected)
[2022-06-21] MEDS ORDERED: SODIUM CHLORIDE 0.45 % 1,000 ML IV ONE (03:00)
[2022-06-21] MEDS ORDERED: AZITHROMYCIN 500 MG in DEXTROSE 5% 250 ML IV ONE (03:00)
[2022-06-21] MEDS: HEPARIN SOD 5,000 UNIT/0.5 ML VIAL SQ SCH ×3 (05:39→22:40)
[2022-06-21] MEDS: LEVOTHYROXINE SODIUM 75 MCG TABLET PO SCH (05:41)
[2022-06-21 06:16] LABS: Appearance Urine Cloudy (Clear); Bacteria Urine Automated Negative (Negative); Bilirubin Urine Negative (Negative); Blood Urine Negative (Negative); Color Urine Yellow; Epithelial Cell Urine Auto >30 /lpf (0-5); Glucose Urine UA Negative (Negative); Ketones Urine Trace (Negative); Leukocyte Esterase Urine Negative (Negative); Nitrite Urine Negative (Negative); Protein Urine Trace (Negative); Specific Gravity Urine 1.019 (1.000-1.030); Urobilinogen Urine Negative (Negative)
[2022-06-21 06:26] LABS: BUN Creatinine Ratio 27.2 (10-20); Calcium 7.4 mg/dl (8.6-10.3); Creatinine Clr Calc Pharmacy 23.5 ml/min; Est GFR (African American) 28.4 ml/min; Est GFR (Non-African American) 24.5 ml/min; Potassium 4.2 mmol/L (3.5-5.1)
[2022-06-21 06:29] LABS: Hematocrit (blood only) 29.2 % (37.0-47.0); Hemoglobin 9.2 g/dl (12.0-16.0); Mean Corpuscular Hemoglobin 30.5 pg (25.0-34.0); Mean Corpuscular Hgb Conc 31.5 g/dL (32.0-36.0); Mean Corpuscular Volume 96.7 fL (80.0-100.0); Mean Platelet Volume 9.6 fL (9.4-12.4); Platelet Count 221 K/uL (130-400); RDW Coefficient of Variation 16.4 % (11.5-14.5); RDW Standard Deviation 57.9 fL (36.4-46.3); Red Blood Count 3.02 M/uL (4.20-5.40); White Blood Count 18.48 K/ul (4.8-10.8)
[2022-06-21] MEDS ORDERED: XOPENEX/ATROVENT 1.25mg/0.5MG NEB COMBO NEB STA (06:42)
[2022-06-21] MEDS ORDERED: IPRATROPIUM BROMIDE NEB SOLN 0.02% 2.5 ML VIAL INH STA (06:45)
[2022-06-21] MEDS ORDERED: LEVALBUTEROL 1.25MG/0.5ML NEB INH STA (06:45)
--- NOTE | 2022-06-21 06:51 | Communication Note ---
Date of Service: June 21, 2022 Notified by RN of EPEC on stool CS. EPEC diarrhea Immunocompromised patient Azithromycin for EPEC diarrhea and atypical pneumonia coverage (DC doxycycline)
[2022-06-21 07:28] LABS: Basophils # (auto) 0.06 K/uL (0-0.2); Basophils % (auto) 0.3 %; Eosinophils # (auto) 0.01 K/uL (0-0.50); Eosinophils % (auto) 0.1 %; Immature Granulocytes # (auto) 0.44 K/uL (0.01-0.20); Immature Granulocytes % (auto) 2.4 %; Lymphocytes # (auto) 0.47 K/uL (1.2-3.4); Lymphocytes % (auto) 2.5 %; Monocytes % (auto) 4.3 %; Neutrophils % (auto) 90.4 %
[2022-06-21] MEDS: PANTOprazole 40 MG TAB PO SCH (08:20)
[2022-06-21] MEDS: cefTRIAXone SODIUM 2,000 MG in DEXTROSE 5% 50 ML IV SCH (08:20)
[2022-06-21] MEDS: NIFEdipine EXTENDED REL 30 MG TABCR PO SCH (08:20)
[2022-06-21] MEDS: predniSONE 5 MG TAB PO SCH (08:20)
[2022-06-21] MEDS: ESCITALOPRAM OXALATE 10 MG TAB PO SCH (08:21)
[2022-06-21] MEDS: GABAPENTIN 100 MG CAP PO SCH ×3 (08:21→22:34)
[2022-06-21] MEDS ORDERED: DOXYCYCLINE HYCLATE 100 MG CAP PO SCH (09:00)
--- NOTE | 2022-06-21 13:20 | Hospitalist Progress Note ---
Date of Service June 21, 2022 Assessment & Plan (1) Acute hypoxemic respiratory failure: Plan: Secondary to complicated pneumonia, community-acquired infection Immunocompromised patient, hx chronic steroid Rx for RA Patient not septic. supplemental O2 Solu-Medrol 1 dose now for bronchopneumonia given hypoxemia Ceftriaxone, Doxycycline had changed to azithromycin Pulmonary consult if without improvement (2) Community acquired pneumonia: (3) Gastroenteritis: Plan: Diarrhea symptoms rule out infectious causes that may warrant treatment Having diarrheal episode C. difficile has been negative Stool culture came back positive for e EPEC Oxygen again has been changed to azithromycin (4) Elevated troponin: Plan: Troponin elevation secondary to illness in the setting of kidney dysfunction Asymptomatic and negative EKG changes ,doubt any ACS Likely secondary to demand ischemia (5) CKD (chronic kidney disease), stage III: Plan: ARF on CKD secondary to illness Advised to drink more fluid and she has been receiving cautious amount of intravenous fluid Creatinine has been improving and it is 1.91 as of 06/21/2022 (6) Hypothyroidism: Plan: Continue supplement (7) HTN (hypertension): Plan: Remains on the upper side Continue current medications (8) Bilateral leg edema: Plan: Complains to have occasional leg swelling more on the left than the right Has been having recently Likely secondary to diastolic failure from tachycardia History of grade 1 diastolic dysfunction as of echo in May 2021 Plan Other significant medical conditions as below: Hypothyroidism, unknown control Chronic anemia, hemoglobin better than baseline likely secondary to hemoconcentration Anxiety/mood disorder, at baseline Possible functional disability Complains to have a stress incontinence Leaks urine with coughing or sneezing and has been having recently Baseline UA, monitor creatinine response to IVF, hold ARB until creatinine back to baseline Reassured PT OT eval once medically stable DVT prophylaxis. Heparin subcu Full code Patient request for her friend to be given updates regarding her care as needed. Ms. Barbara Varela, contact #[phone]. Admission and Anticipated Discharge Date Admission Date: June 20, 2022 Subjective 06/21/2022 The patient was seen and examined in medical telemetry unit She has been feeling much better but complains to have sneezing and nasal drainage since admission Her cough is better and denies any chest pain and her palpitation or shortness of breath at rest No fever and or chills Review of Systems Review of Systems: All systems reviewed and are unremarkable except as noted below Physical Exam Physical Exam: Sitting on a chair without any acute distress Constitutional: well developed, well nourished, + ill appearing and + obese Eyes: PERRL, conjunctivae normal, anicteric sclerae ENMT: external ear and nose normal, oropharynx normal Neck: trachea midline, no thyromegaly Respiratory: no respiratory distress Auscultation: + diminished lung sounds (Bilaterally but more on the left base with bronchial breath sound) Cardiovascular: Rate/Rhythm: regular rate and regular rhythm; not tachycardic Heart Sounds: normal S1, normal S2 and + murmur Extremities: + edema (Bilateral breast leg edema, a little worse on the left) Gastrointestinal (Abdomen): Inspection/Auscultation: normal bowel sounds; abdomen not distended Percussion/Palpation: abdomen soft; abdomen nontender Musculoskeletal: Greater trochanteric tenderness otherwise no acute arthritis in any joint Neurologic: normal touch/pain/proprioception and moves all extremities; no focal motor deficits Psychiatric: A+Ox3, euthymic affect Lymphatic: no cervical or axillary lymphadenopathy Results & Data Results & Data Vital Signs (Past 12 Hours) Vital Signs Temp Pulse Resp BP Pulse Ox O2 Del Method O2 Flow Rate 06/21/22 10:14 95 Room Air 06/21/22 08:30 Nasal Cannula 3 06/21/22 07:45 37.4 C 86 18 171/84 H 97 Nasal Cannula 3 06/21/22 07:03 83 18 96 Nasal Cannula 4 06/21/22 04:00 37.0 C 88 18 138/84 98 Nasal Cannula 3 Laboratory Results Short CBC 06/20/22 06/21/22 Range/Units 18:46 05:53 WBC 10.34 18.48 H (4.8-10.8) K/ul Hgb 10.8 L 9.2 L (12.0-16.0) g/dl Hct 34.6 L 29.2 L (37.0-47.0) % Plt Count 258 221 (130-400) K/uL BMP 06/20/22 06/21/22 18:46 05:53 Sodium 144 139 Potassium 4.2 4.2 Chloride 111 H 110 H Carbon Dioxide 22 22 BUN 59 H 52 H Creatinine 2.19 H 1.91 H Glucose 112 H 199 H Calcium 8.1 L 7.4 L Cardiac Enzymes 06/20/22 06/21/22 Range/Units 18:46 05:53 Total Creatine Kinase 225 H 321 H (26-192) U/L Liver Function 06/20/22 Range/Units 18:46 Total Bilirubin 1.1 H (0.2-1.0) mg/dl AST 29 (13-39) U/L ALT 26 (7-52) U/L Alkaline Phosphatase 45 (34-104) U/L Albumin 3.3 L (3.4-5.0) gm/dl Urine 06/21/22 Range/Units 05:58 Urine Color Yellow Urine Appearance Cloudy A (Clear) Urine pH 5.0 (4.5-7.5) Ur Specific [place] 1.019 (1.000-1.030) Urine Protein Trace H (Negative) Urine Glucose (UA) Negative (Negative) Medications Administered Current Inpatient Medications Acetaminophen (Acetaminophen 325 Mg Tab) 650 mg PO Q4H PRN PRN Reason: Pain or Fever Stop: 07/21/22 00:08 Hydrocodone Bitart/Acetaminophen (Hydrocodone/Acetamophen 5/325mg Tab) 1 tab PO QID PRN PRN Reason: Pain Stop: 07/04/22 22:05 Azithromycin (Azithromycin 250 Mg Tab) 250 mg PO QAM AMARI Stop: 06/26/22 08:59 Carvedilol (Carvedilol 3.125 Mg Tab) 3.125 mg PO BID [facility]I Stop: 07/21/22 00:08 Last Admin: 06/21/22 08:21 Dose: 3.125 mg Escitalopram Oxalate (Escitalopram Oxalate 10 Mg Tab) 10 mg PO QAM [facility]ARI Stop: 07/21/22 08:59 Last Admin: 06/21/22 08:21 Dose: 10 mg Famotidine (Famotidine 10 Mg Tablet) 10 mg PO HS [facility]I Stop: 07/21/22 20:59 Fluticasone Propionate (Fluticasone Propionate Na Spr 16 Gm Btl) 2 sprays NA DAILY [facility] Stop: 07/21/22 13:59 Last Admin: 06/21/22 13:53 Dose: 2 sprays Gabapentin (Gabapentin 100 Mg Cap) 200 mg PO TID [facility] Stop: 07/21/22 08:59 Last Admin: 06/21/22 13:20 Dose: 200 mg Heparin Sodium (Porcine) (Heparin Sod 5,000 Unit/0.5 Ml Vial) 5,000 units SQ Q8H [facility] Stop: 07/21/22 05:59 Last Admin: 06/21/22 13:20 Dose: 5,000 units Promethazine HCl 6.25 mg/ (Sodium Chloride) 50.25 mls @ 201 mls/hr IV Q6H PRN PRN Reason: Nausea And Vomiting Stop: 07/20/22 22:06 Ceftriaxone Sodium 2,000 mg/ (Dextrose) 70 mls @ 100 mls/hr IV DAILY [facility]; Protocol Stop: 06/28/22 08:59 Last Infusion: 06/21/22 09:22 Dose: Infused Levothyroxine Sodium (Levothyroxine Sodium 75 Mcg Tablet) 75 mcg PO DAILYBB [facility] Stop: 07/21/22 06:29 Last Admin: 06/21/22 05:41 Dose: 75 mcg Nifedipine (Nifedipine Extended Rel 30 Mg Tabcr) 90 mg PO QAM [facility] Stop: 07/21/22 08:59 Last Admin: 06/21/22 08:20 Dose: 90 mg Pantoprazole Sodium (Pantoprazole 40 Mg Tab) 40 mg PO QAM [facility] Stop: 07/21/22 08:59 Last Admin: 06/21/22 08:20 Dose: 40 mg Prednisone (Prednisone 5 Mg Tab) 5 mg PO DAILY [facility] Stop: 07/21/22 08:59 Last Admin: 06/21/22 08:20 Dose: 5 mg Ropinirole HCl (Ropinirole Hcl 2 Mg Tablet) 2 mg PO HS [facility] Stop: 07/21/22 20:59 Tizanidine HCl (Tizanidine Hcl 4 Mg Tablet) 2 mg PO HS [facility] Stop: 07/21/22 20:59 (5) CKD (chronic kidney disease), stage III Chronic kidney disease stage 3 subtype: stage 3a (GFR 45-59) Qualified Code(s): N18.31 - Chronic kidney disease, stage 3a (7) HTN (hypertension) Hypertension type: unspecified Qualified Code(s): I10 - Essential (primary) hypertension
[2022-06-21] MEDS: FLUTICASONE PROPIONATE NA SPR 16 GM BTL SCH (13:53)
[2022-06-21] MEDS ORDERED: FLUTICASONE PROPIONATE NA SPR 16 GM BTL SCH (14:00)
[2022-06-21] MEDS ORDERED: diphenhydrAMINE Capsule 25 MG CAP PO ONE (16:42)
[2022-06-21] MEDS: FAMOTIDINE 10 MG TABLET PO SCH (22:34)
[2022-06-21] MEDS: NYSTATIN POWDER 15GM BTL EXT SCH (22:35)
[2022-06-21] MEDS: tiZANidine HCL 4 MG TABLET PO SCH (22:40)
[2022-06-21] MEDS: rOPINIRole HCL 2 MG TABLET PO SCH (22:42)
[2022-06-22] MEDS: HEPARIN SOD 5,000 UNIT/0.5 ML VIAL SQ SCH ×3 (05:17→21:05)
[2022-06-22] MEDS: LEVOTHYROXINE SODIUM 75 MCG TABLET PO SCH (05:17)
--- NOTE | 2022-06-22 05:35 | Electrocardiogram Report ---
Test Reason : Blood Pressure : / mmHG Vent. Rate : 094 BPM Atrial Rate : 094 BPM P-R Int : 112 ms QRS Dur : 076 ms QT Int : 348 ms P-R-T Axes : 002 -13 077 degrees QTc Int : 435 ms Poor data quality, interpretation may be adversely affected Normal sinus rhythm Left ventricular hypertrophy with repolarization abnormality Possible Inferior infarct Abnormal ECG When compared with ECG of 08-SEP-2021 06:08, Criteria for Septal infarct are no longer Present Possible Inferior infarct is now Present Confirmed by Ed Martinez ([id number]) on 06/22/2022 5:35:44 AM Referred By: REFERRED SELF Confirmed By:Ed Martinez
--- NOTE | 2022-06-22 05:54 | Electrocardiogram Report ---
Test Reason : Blood Pressure : / mmHG Vent. Rate : 086 BPM Atrial Rate : 086 BPM P-R Int : 122 ms QRS Dur : 086 ms QT Int : 362 ms P-R-T Axes : 033 -12 064 degrees QTc Int : 433 ms Normal sinus rhythm Voltage criteria for left ventricular hypertrophy Inferior infarct Abnormal ECG When compared with ECG of 20-JUN-2022 19:05, No significant change was found Confirmed by Ed Martinez ([id number] on 06/22/2022 5:54:05 AM Referred By: REFERRED SELF Confirmed By:Ed Martinez
[2022-06-22 07:30] LABS: Hematocrit (blood only) 24.6 % (37.0-47.0); Hemoglobin 7.8 g/dl (12.0-16.0); Mean Corpuscular Hemoglobin 29.5 pg (25.0-34.0); Mean Corpuscular Hgb Conc 31.7 g/dL (32.0-36.0); Mean Corpuscular Volume 93.2 fL (80.0-100.0); Mean Platelet Volume 9.9 fL (9.4-12.4); Platelet Count 202 K/uL (130-400); RDW Coefficient of Variation 16.2 % (11.5-14.5); RDW Standard Deviation 55.6 fL (36.4-46.3); Red Blood Count 2.64 M/uL (4.20-5.40); White Blood Count 21.37 K/ul (4.8-10.8)
[2022-06-22 07:54] LABS: Calcium 8.2 mg/dl (8.6-10.3); Creatinine Clr Calc Pharmacy 29.9 ml/min; Est GFR (Non-African American) 32.8 ml/min; Potassium 3.6 mmol/L (3.5-5.1)
[2022-06-22 07:59] LABS: Basophils # (auto) 0.04 K/uL (0-0.2); Basophils % (auto) 0.2 %; Eosinophils # (auto) 0.12 K/uL (0-0.50); Eosinophils % (auto) 0.6 %; Immature Granulocytes # (auto) 1.74 K/uL (0.01-0.20); Immature Granulocytes % (auto) 8.1 %; Lymphocytes # (auto) 0.63 K/uL (1.2-3.4); Lymphocytes % (auto) 2.9 %; Monocytes # (auto) 1.03 K/uL (0.11-0.59); Monocytes % (auto) 4.8 %; Neutrophils # (auto) 17.81 K/uL (1.40-6.50); Neutrophils % (auto) 83.4 %; Polychromasia 1+
[2022-06-22] MEDS: FLUTICASONE PROPIONATE NA SPR 16 GM BTL SCH (09:00)
[2022-06-22] MEDS: ESCITALOPRAM OXALATE 10 MG TAB PO SCH (09:03)
[2022-06-22] MEDS: AZITHROMYCIN 250 MG TAB PO SCH (09:03)
[2022-06-22] MEDS: carvediloL 3.125 MG TAB PO SCH ×2 (09:03→21:04)
[2022-06-22] MEDS: GABAPENTIN 100 MG CAP PO SCH ×3 (09:04→20:52)
[2022-06-22] MEDS: PANTOprazole 40 MG TAB PO SCH (09:04)
[2022-06-22] MEDS: NYSTATIN POWDER 15GM BTL EXT SCH ×3 (09:04→20:53)
[2022-06-22] MEDS: NIFEdipine EXTENDED REL 30 MG TABCR PO SCH (09:04)
[2022-06-22] MEDS: predniSONE 5 MG TAB PO SCH (09:05)
[2022-06-22] MEDS: cefTRIAXone SODIUM 2,000 MG in DEXTROSE 5% 50 ML IV SCH (09:46)
[2022-06-22] MEDS ORDERED: PHENAZOPYRIDINE HCL 100 MG TAB PO PRN (10:41)
[2022-06-22] MEDS: HYDROCODONE/ACETAMOPHEN 5/325MG TAB PO PRN ×2 (10:46→18:50)
[2022-06-22] MEDS: diphenhydrAMINE Capsule 25 MG CAP PO PRN (11:43)
--- NOTE | 2022-06-22 15:28 | Hospitalist Progress Note ---
Date of Service June 22, 2022 Assessment & Plan (1) Acute hypoxemic respiratory failure: Plan: Secondary to complicated pneumonia, community-acquired infection Immunocompromised patient, hx chronic steroid Rx for RA Patient not septic. supplemental O2 Solu-Medrol 1 dose now for bronchopneumonia given hypoxemia Ceftriaxone, Doxycycline had changed to azithromycin Pulmonary consult if without improvement Clinically little better We will get chest x-ray tomorrow-if worse will need to have a pulmonary evaluation Acute allergy Has been using Flonase as an outpatient Flonase was prescribed and she was given Benadryl as needed to decrease runny nose Urinary incontinence Complains to have a stress incontinence Leaks urine with coughing or sneezing and has been having recently Urinary incontinence from today Pyridium was given for dysuria Urine examination did not show any infection Urbina will be placed for convenience (2) Community acquired pneumonia: Plan: As above-has been on intravenous ceftriaxone and doxycycline (3) Gastroenteritis: Plan: Diarrhea symptoms rule out infectious causes that may warrant treatment Having diarrheal episode C. difficile has been negative Stool culture came back positive for e EPEC Oxygen again has been changed to azithromycin No more diarrhea (4) Elevated troponin: Plan: Troponin elevation secondary to illness in the setting of kidney dysfunction Asymptomatic and negative EKG changes ,doubt any ACS Likely secondary to demand ischemia (5) CKD (chronic kidney disease), stage III: Plan: ARF on CKD secondary to illness Advised to drink more fluid and she has been receiving cautious amount of intravenous fluid Creatinine has been improving and it is 1.91 as of 06/21/2022 (6) Hypothyroidism: Plan: Continue supplement (7) HTN (hypertension): Plan: Remains on the upper side Continue current medications (8) Bilateral leg edema: Plan: Complains to have occasional leg swelling more on the left than the right Has been having recently Likely secondary to diastolic failure from tachycardia History of grade 1 diastolic dysfunction as of echo in May 2021 Plan Other significant medical conditions as below: Hypothyroidism, unknown control Chronic anemia, hemoglobin better than baseline likely secondary to hemoconcentration Anxiety/mood disorder, at baseline Possible functional disability PT OT eval once medically stable DVT prophylaxis. Heparin subcu Full code Patient request for her friend to be given updates regarding her care as needed. Ms. Barbara Varela, contact #[phone]. Admission and Anticipated Discharge Date Admission Date: June 20, 2022 Subjective 06/21/2022 The patient was seen and examined in medical telemetry unit She has been feeling much better but complains to have sneezing and nasal drainage since admission Her cough is better and denies any chest pain and her palpitation or shortness of breath at rest No fever and or chills 06/22/2022 The patient was seen and examined in medical telemetry unit She has been feeling worse today with more drowsiness but less shortness of breath She is more bothered with frequent urination without dysuria She also has runny nose which is minimally improved with Benadryl Review of Systems Review of Systems: All systems reviewed and are unremarkable except as noted below Physical Exam Physical Exam: Sitting on a chair without any acute distress Constitutional: well developed, well nourished, + ill appearing and + obese Eyes: PERRL, conjunctivae normal, anicteric sclerae ENMT: external ear and nose normal, oropharynx normal Neck: trachea midline, no thyromegaly Respiratory: no respiratory distress Auscultation: + diminished lung sounds (Bilaterally but more on the left base with bronchial breath sound) Cardiovascular: Rate/Rhythm: regular rate and regular rhythm; not tachycardic Heart Sounds: normal S1, normal S2 and + murmur Extremities: + edema (Bilateral breast leg edema, a little worse on the left) Gastrointestinal (Abdomen): Inspection/Auscultation: normal bowel sounds; abdomen not distended Percussion/Palpation: abdomen soft; abdomen nontender Musculoskeletal: No acute arthritis involving any joint Neurologic: normal touch/pain/proprioception and moves all extremities; no focal motor deficits Psychiatric: A+Ox3, euthymic affect Lymphatic: no cervical or axillary lymphadenopathy Results & Data Results & Data Vital Signs (Past 12 Hours) Vital Signs Temp Pulse Pulse Resp BP BP Pulse Ox 06/22/22 15:05 36.7 C 90 18 177/77 H 93 06/22/22 14:53 85 06/22/22 13:24 98 06/22/22 08:00 06/22/22 11:28 36.6 C 80 16 159/83 H 92 06/22/22 08:03 36.9 C 90 16 192/83 H 97 06/22/22 07:37 76 O2 Del Method O2 Flow Rate 06/22/22 15:05 Nasal Cannula 2 06/22/22 14:53 06/22/22 13:24 Room Air 06/22/22 08:00 Nasal Cannula 2 06/22/22 11:28 Nasal Cannula 2 06/22/22 08:03 Room Air 06/22/22 07:37 Laboratory Results Short CBC 06/22/22 Range/Units 06:42 WBC 21.37 H (4.8-10.8) K/ul Hgb 7.8 L (12.0-16.0) g/dl Hct 24.6 L (37.0-47.0) % Plt Count 202 (130-400) K/uL BMP 06/22/22 06:42 Sodium 143 Potassium 3.6 Chloride 113 H Carbon Dioxide 23 BUN 45 H Creatinine 1.50 H D Glucose 89 Calcium 8.2 L Medications Administered Current Inpatient Medications Acetaminophen (Acetaminophen 325 Mg Tab) 650 mg PO Q4H PRN PRN Reason: Pain or Fever Stop: 07/21/22 00:08 Hydrocodone Bitart/Acetaminophen (Hydrocodone/Acetamophen 5/325mg Tab) 1 tab PO QID PRN PRN Reason: Pain Stop: 07/04/22 22:05 Last Admin: 06/22/22 10:46 Dose: 1 tab Azithromycin (Azithromycin 250 Mg Tab) 250 mg PO QAM [facility] Stop: 06/26/22 08:59 Last Admin: 06/22/22 09:03 Dose: 250 mg Carvedilol (Carvedilol 3.125 Mg Tab) 3.125 mg PO BID [facility] Stop: 07/21/22 00:08 Last Admin: 06/22/22 09:03 Dose: 3.125 mg Diphenhydramine HCl (Diphenhydramine Capsule 25 Mg Cap) 25 mg PO TID PRN PRN Reason: Nasal Congestion Stop: 07/22/22 10:40 Last Admin: 06/22/22 11:43 Dose: 25 mg Escitalopram Oxalate (Escitalopram Oxalate 10 Mg Tab) 10 mg PO QAM [facility] Stop: 07/21/22 08:59 Last Admin: 06/22/22 09:03 Dose: 10 mg Famotidine (Famotidine 10 Mg Tablet) 10 mg PO HS [facility] Stop: 07/21/22 20:59 Last Admin: 06/21/22 22:34 Dose: 10 mg Fluticasone Propionate (Fluticasone Propionate Na Spr 16 Gm Btl) 2 sprays NA DAILY [facility] Stop: 07/21/22 13:59 Last Admin: 06/22/22 09:00 Dose: 2 sprays Gabapentin (Gabapentin 100 Mg Cap) 200 mg PO TID [facility] Stop: 07/21/22 08:59 Last Admin: 06/22/22 14:53 Dose: 200 mg Heparin Sodium (Porcine) (Heparin Sod 5,000 Unit/0.5 Ml Vial) 5,000 units SQ Q8H [facility] Stop: 07/21/22 05:59 Last Admin: 06/22/22 14:54 Dose: 5,000 units Promethazine HCl 6.25 mg/ (Sodium Chloride) 50.25 mls @ 201 mls/hr IV Q6H PRN PRN Reason: Nausea And Vomiting Stop: 07/20/22 22:06 Last Infusion: 06/22/22 09:49 Dose: Infused Ceftriaxone Sodium 2,000 mg/ (Dextrose) 70 mls @ 100 mls/hr IV DAILY [facility]; Protocol Stop: 06/28/22 08:59 Last Infusion: 06/22/22 10:35 Dose: Infused Levothyroxine Sodium (Levothyroxine Sodium 75 Mcg Tablet) 75 mcg PO DAILYBB [facility] Stop: 07/21/22 06:29 Last Admin: 06/22/22 05:17 Dose: 75 mcg Nifedipine (Nifedipine Extended Rel 30 Mg Tabcr) 90 mg PO QAM [facility] Stop: 07/21/22 08:59 Last Admin: 06/22/22 09:04 Dose: 90 mg Nystatin (Nystatin Powder 15gm Btl) 1 appln EXT TID [facility] Stop: 07/21/22 20:59 Last Admin: 06/22/22 14:58 Dose: 1 appln Pantoprazole Sodium (Pantoprazole 40 Mg Tab) 40 mg PO QAM [facility] Stop: 07/21/22 08:59 Last Admin: 06/22/22 09:04 Dose: 40 mg Phenazopyridine HCl (Phenazopyridine Hcl 100 Mg Tab) 100 mg PO TID PRN PRN Reason: Dysuria Stop: 07/22/22 10:40 Last Admin: 06/22/22 11:23 Dose: 100 mg Prednisone (Prednisone 5 Mg Tab) 5 mg PO DAILY [facility] Stop: 07/21/22 08:59 Last Admin: 06/22/22 09:05 Dose: 5 mg Ropinirole HCl (Ropinirole Hcl 2 Mg Tablet) 2 mg PO HS [facility] Stop: 07/21/22 20:59 Last Admin: 06/21/22 22:42 Dose: 2 mg Tizanidine HCl (Tizanidine Hcl 4 Mg Tablet) 2 mg PO HS [facility] Stop: 07/21/22 20:59 Last Admin: 06/21/22 22:40 Dose: 2 mg (5) CKD (chronic kidney disease), stage III Chronic kidney disease stage 3 subtype: stage 3a (GFR 45-59) Qualified Code(s): N18.31 - Chronic kidney disease, stage 3a (7) HTN (hypertension) Hypertension type: unspecified Qualified Code(s): I10 - Essential (primary) hypertension
[2022-06-22] MEDS: rOPINIRole HCL 2 MG TABLET PO SCH (20:52)
[2022-06-22] MEDS: tiZANidine HCL 4 MG TABLET PO SCH (20:52)
[2022-06-22] MEDS ORDERED: ZOLPIDEM TARTRATE 5 MG TAB PO STA (20:56)
[2022-06-22] MEDS: FAMOTIDINE 10 MG TABLET PO SCH (21:04)
[2022-06-22] MEDS: DICLOFENAC SOD 1% GEL 100 GM TUBE EXT PRN (22:00)
[2022-06-23] MEDS: diphenhydrAMINE Capsule 25 MG CAP PO PRN ×2 (03:30→22:36)
[2022-06-23] MEDS: hydrALAZINE HCL 20 MG/ML VIAL IV PRN ×2 (04:10→18:41)
[2022-06-23] MEDS: HEPARIN SOD 5,000 UNIT/0.5 ML VIAL SQ SCH ×3 (06:39→22:49)
[2022-06-23] MEDS: LEVOTHYROXINE SODIUM 75 MCG TABLET PO SCH (06:40)
[2022-06-23 07:26] LABS: Basophils # (auto) 0.05 K/uL (0-0.2); Basophils % (auto) 0.3 %; Eosinophils # (auto) 0.19 K/uL (0-0.50); Hematocrit (blood only) 27.5 % (37.0-47.0); Lymphocytes % (auto) 4.7 %; Mean Corpuscular Hemoglobin 29.8 pg (25.0-34.0); Mean Corpuscular Hgb Conc 32.7 g/dL (32.0-36.0); Mean Corpuscular Volume 91.1 fL (80.0-100.0); Mean Platelet Volume 9.6 fL (9.4-12.4); Monocytes # (auto) 0.81 K/uL (0.11-0.59); Monocytes % (auto) 4.2 %; Neutrophils # (auto) 17.16 K/uL (1.40-6.50); Neutrophils % (auto) 88.8 %; Platelet Count 230 K/uL (130-400); RDW Coefficient of Variation 15.5 % (11.5-14.5); RDW Standard Deviation 51.4 fL (36.4-46.3); Red Blood Count 3.02 M/uL (4.20-5.40); White Blood Count 19.31 K/ul (4.8-10.8)
[2022-06-23 07:45] LABS: Calcium 8.6 mg/dl (8.6-10.3); Creatinine Clr Calc Pharmacy 38.2 ml/min; Est GFR (African American) 50.8 ml/min; Est GFR (Non-African American) 43.8 ml/min; Potassium 3.4 mmol/L (3.5-5.1)
[2022-06-23] MEDS ORDERED: LABETALOL HCL IV 5 MG/ML 20ML IV STA (08:03)
[2022-06-23] MEDS ORDERED: LORazepam 2 MG/1 ML VIAL IV STA (08:13)
[2022-06-23] MEDS ORDERED: NITROGLYCERIN 2% OINTMENT 30GM TUBE EXT ONE (08:13)
[2022-06-23] MEDS: NIFEdipine EXTENDED REL 30 MG TABCR PO SCH (08:20)
[2022-06-23] MEDS: FLUTICASONE PROPIONATE NA SPR 16 GM BTL SCH (08:20)
[2022-06-23] MEDS: ESCITALOPRAM OXALATE 10 MG TAB PO SCH (08:20)
[2022-06-23] MEDS: GABAPENTIN 100 MG CAP PO SCH ×3 (08:20→22:36)
[2022-06-23] MEDS: AZITHROMYCIN 250 MG TAB PO SCH (08:21)
[2022-06-23] MEDS: PANTOprazole 40 MG TAB PO SCH (08:21)
[2022-06-23] MEDS: predniSONE 5 MG TAB PO SCH (08:21)
[2022-06-23] MEDS: carvediloL 6.25 MG TAB PO SCH ×2 (09:08→22:49)
[2022-06-23] MEDS: NYSTATIN POWDER 15GM BTL EXT SCH ×3 (09:09→22:36)
[2022-06-23] MEDS ORDERED: POTASSIUM CHLORIDE CRTAB 20 MEQ TABCR PO STA (09:34)
[2022-06-23] MEDS: cefTRIAXone SODIUM 2,000 MG in DEXTROSE 5% 50 ML IV SCH (09:56)
--- NOTE | 2022-06-23 14:08 | Hospitalist Progress Note ---
Date of Service June 23, 2022 Assessment & Plan (1) Acute hypoxemic respiratory failure: Plan: Secondary to complicated pneumonia, community-acquired infection Immunocompromised patient, hx chronic steroid Rx for RA Patient not septic. supplemental O2 Solu-Medrol 1 dose now for bronchopneumonia given hypoxemia Ceftriaxone, Doxycycline had changed to azithromycin Pulmonary consult if without improvement Clinically little better and denies any shortness of breath at rest and no cough and no chest pain Will get chest x-ray PA and lateral view to evaluate pneumonia Acute allergy Has been using Flonase as an outpatient Flonase was prescribed and she was given Benadryl as needed to decrease runny nose Allergic symptoms symptoms are better Urinary incontinence Complains to have a stress incontinence Leaks urine with coughing or sneezing and has been having recently Urinary incontinence from today Pyridium was given for dysuria Urine examination did not show any infection Urbina will be placed for convenience Diarrhea Likely secondary to antibiotic We will get C. difficile toxin (2) HTN (hypertension): Plan: Remains on the upper side Continue current medications Blood pressure remains elevated without any symptoms Blood pressure medications have been updated We will monitor (3) Community acquired pneumonia: Plan: As above-has been on intravenous ceftriaxone and doxycycline (4) Gastroenteritis: Plan: Diarrhea symptoms rule out infectious causes that may warrant treatment Having diarrheal episode C. difficile has been negative Stool culture came back positive for e EPEC Oxygen again has been changed to azithromycin No more diarrhea (5) Elevated troponin: Plan: Troponin elevation secondary to illness in the setting of kidney dysfunction Asymptomatic and negative EKG changes ,doubt any ACS Likely secondary to demand ischemia (6) CKD (chronic kidney disease), stage III: Plan: ARF on CKD secondary to illness Advised to drink more fluid and she has been receiving cautious amount of intravenous fluid Creatinine has been improving and it is 1.91 as of 06/21/2022 (7) Hypothyroidism: Plan: Continue supplement (8) Bilateral leg edema: Plan: Complains to have occasional leg swelling more on the left than the right Has been having recently Likely secondary to diastolic failure from tachycardia History of grade 1 diastolic dysfunction as of echo in May 2021 Plan Other significant medical conditions as below: Hypothyroidism, unknown control Chronic anemia, hemoglobin better than baseline likely secondary to h emoconcentration Anxiety/mood disorder, at baseline Possible functional disability PT OT eval once medically stable DVT prophylaxis. Heparin subcu Full code Patient request for her friend to be given updates regarding her care as needed. Ms. Barbara Varela, contact #[phone]. Admission and Anticipated Discharge Date Admission Date: June 20, 2022 Subjective 06/21/2022 The patient was seen and examined in medical telemetry unit She has been feeling much better but complains to have sneezing and nasal drainage since admission Her cough is better and denies any chest pain and her palpitation or shortness of breath at rest No fever and or chills 06/22/2022 The patient was seen and examined in medical telemetry unit She has been feeling worse today with more drowsiness but less shortness of breath She is more bothered with frequent urination without dysuria She also has runny nose which is minimally improved with Benadryl 06/23/2022 The patient was seen and examined in medical telemetry unit She has been very anxious and the blood pressure noted to be very high since this morning She is reassured and blood pressure medications have been updated Has been having diarrhea with excoriation of the bottom Stool will be sent for C. difficile toxin Her breathing is better denies any cough and no shortness of breath at rest Review of Systems Review of Systems: All systems reviewed and are unremarkable except as noted below Physical Exam Physical Exam: Lying in bed, very tired and very very anxious Constitutional: well developed, well nourished, + ill appearing and + obese Eyes: PERRL, conjunctivae normal, anicteric sclerae ENMT: external ear and nose normal, oropharynx normal Neck: trachea midline, no thyromegaly Respiratory: no respiratory distress Auscultation: + diminished lung sounds (Bilaterally but more on the left base with bronchial breath sound) Cardiovascular: Rate/Rhythm: regular rate and regular rhythm; not tachycardic Heart Sounds: normal S1, normal S2 and + murmur Extremities: + edema (Bilateral breast leg edema, a little worse on the left) Gastrointestinal (Abdomen): Inspection/Auscultation: normal bowel sounds; abdomen not distended Percussion/Palpation: abdomen soft; abdomen nontender Neurologic: normal touch/pain/proprioception and moves all extremities; no focal motor deficits Psychiatric: A+Ox3, euthymic affect Lymphatic: no cervical or axillary lymphadenopathy Results & Data Results & Data Vital Signs (Past 12 Hours) Vital Signs Temp Pulse Resp BP BP Pulse Ox O2 Del Method 06/23/22 12:02 179/83 H 06/23/22 10:59 36.7 C 83 18 207/93 H 98 Nasal Cannula 06/23/22 09:58 193/98 H 06/23/22 08:05 36.8 C 90 18 210/104 H 98 Nasal Cannula 06/23/22 03:32 36.6 C 84 19 213/85 H 95 Nasal Cannula O2 Flow Rate 06/23/22 12:02 06/23/22 10:59 2 06/23/22 09:58 06/23/22 08:05 2 06/23/22 03:32 2 Laboratory Results Short CBC 06/23/22 Range/Units 06:50 WBC 19.31 H (4.8-10.8) K/ul Hgb 9.0 L (12.0-16.0) g/dl Hct 27.5 L (37.0-47.0) % Plt Count 230 (130-400) K/uL BMP 06/23/22 06:50 Sodium 143 Potassium 3.4 L Chloride 111 H Carbon Dioxide 24 BUN 33 H Creatinine 1.18 D Glucose 85 Calcium 8.6 Medications Administered Current Inpatient Medications Acetaminophen (Acetaminophen 325 Mg Tab) 650 mg PO Q4H PRN PRN Reason: Pain or Fever Stop: 07/21/22 00:08 Hydrocodone Bitart/Acetaminophen (Hydrocodone/Acetamophen 5/325mg Tab) 1 tab PO QID PRN PRN Reason: Pain Stop: 07/04/22 22:05 Last Admin: 06/22/22 18:50 Dose: 1 tab Azithromycin (Azithromycin 250 Mg Tab) 250 mg PO QAM [facility] Stop: 06/26/22 08:59 Last Admin: 06/23/22 08:21 Dose: 250 mg Carvedilol (Carvedilol 6.25 Mg Tab) 6.25 mg PO BID [facility] Stop: 07/23/22 08:29 Last Admin: 06/23/22 09:08 Dose: 6.25 mg Diclofenac Sodium (Diclofenac Sod 1% Gel 100 Gm Tube) 2 gm EXT BID PRN; Protocol PRN Reason: Pain Stop: 07/22/22 20:59 Last Admin: 06/22/22 22:00 Dose: 2 gm Diphenhydramine HCl (Diphenhydramine Capsule 25 Mg Cap) 25 mg PO TID PRN PRN Reason: Nasal Congestion Stop: 07/22/22 10:40 Last Admin: 06/23/22 03:30 Dose: 25 mg Escitalopram Oxalate (Escitalopram Oxalate 10 Mg Tab) 10 mg PO QAM [facility] Stop: 07/21/22 08:59 Last Admin: 06/23/22 08:20 Dose: 10 mg Famotidine (Famotidine 10 Mg Tablet) 10 mg PO HS [facility] Stop: 07/21/22 20:59 Last Admin: 06/22/22 21:04 Dose: 10 mg Fluticasone Propionate (Fluticasone Propionate Na Spr 16 Gm Btl) 2 sprays NA DAILY [facility] Stop: 07/21/22 13:59 Last Admin: 06/23/22 08:20 Dose: 2 sprays Gabapentin (Gabapentin 100 Mg Cap) 200 mg PO TID [facility] Stop: 07/21/22 08:59 Last Admin: 06/23/22 08:20 Dose: 200 mg Heparin Sodium (Porcine) (Heparin Sod 5,000 Unit/0.5 Ml Vial) 5,000 units SQ Q8H [facility] Stop: 07/21/22 05:59 Last Admin: 06/23/22 06:39 Dose: 5,000 units Hydralazine HCl (Hydralazine Hcl 20 Mg/Ml Vial) 7.5 mg IV Q6H PRN PRN Reason: Hypertension Stop: 07/23/22 03:42 Last Admin: 06/23/22 04:10 Dose: 7.5 mg Promethazine HCl 6.25 mg/ (Sodium Chloride) 50.25 mls @ 201 mls/hr IV Q6H PRN PRN Reason: Nausea And Vomiting Stop: 07/20/22 22:06 Last Infusion: 06/22/22 09:49 Dose: Infused Ceftriaxone Sodium 2,000 mg/ (Dextrose) 70 mls @ 100 mls/hr IV DAILY [facility]; Protocol Stop: 06/28/22 08:59 Last Infusion: 06/23/22 10:55 Dose: Infused Levothyroxine Sodium (Levothyroxine Sodium 75 Mcg Tablet) 75 mcg PO DAILYBB [facility] Stop: 07/21/22 06:29 Last Admin: 06/23/22 06:40 Dose: 75 mcg Nifedipine (Nifedipine Extended Rel 30 Mg Tabcr) 90 mg PO QAM [facility] Stop: 07/21/22 08:59 Last Admin: 06/23/22 08:20 Dose: 90 mg Nystatin (Nystatin Powder 15gm Btl) 1 appln EXT TID [facility] Stop: 07/21/22 20:59 Last Admin: 06/23/22 09:09 Dose: 1 appln Pantoprazole Sodium (Pantoprazole 40 Mg Tab) 40 mg PO QAM [facility] Stop: 07/21/22 08:59 Last Admin: 06/23/22 08:21 Dose: 40 mg Phenazopyridine HCl (Phenazopyridine Hcl 100 Mg Tab) 100 mg PO TID PRN PRN Reason: Dysuria Stop: 07/22/22 10:40 Last Admin: 06/22/22 11:23 Dose: 100 mg Prednisone (Prednisone 5 Mg Tab) 5 mg PO DAILY [facility] Stop: 07/21/22 08:59 Last Admin: 06/23/22 08:21 Dose: 5 mg Ropinirole HCl (Ropinirole Hcl 2 Mg Tablet) 2 mg PO HS [facility] Stop: 07/21/22 20:59 Last Admin: 06/22/22 20:52 Dose: 2 mg Tizanidine HCl (Tizanidine Hcl 4 Mg Tablet) 2 mg PO HS [facility] Stop: 07/21/22 20:59 Last Admin: 06/22/22 20:52 Dose: 2 mg (2) HTN (hypertension) Hypertension type: unspecified Qualified Code(s): I10 - Essential (primary) hypertension (6) CKD (chronic kidney disease), stage III Chronic kidney disease stage 3 subtype: stage 3a (GFR 45-59) Qualified Code(s): N18.31 - Chronic kidney disease, stage 3a
--- NOTE | 2022-06-23 15:36 | Orthopedic Consultation ---
Date of Service June 23, 2022 Assessment & Plan (1) Greater trochanteric bursitis of left hip: We talked about diagnosis and treatment options at bedside. I agreed to give her a left greater trochanteric bursa injection tomorrow morning. I will order up the medications. History of Present Illness Reason for Consultation: Greater trochanteric bursitis of the left hip. Requesting Physician: . Attending Physician: Robin Orozco MD Jossy is a pleasant 81-year-old female who I did a knee replacement on in the past. Unfortunate she has been dealing with chronic left hip pain. Dr. Trevino has been giving her greater trochanteric bursa injections of her left hip. Unfortunately, she is having a lot of pain in her hip and she is unable to get to her next appointment for hip injection. Orthopedics was consulted to evaluate and treat.. Allergies Allergy/AdvReac Type Severity Reaction Status Date / Time aspirin Allergy Severe ANAPHYLAXIS Verified 06/20/22 19:08 duloxetine [From Cymbalta] Allergy Intermediate Rash Verified 06/20/22 19:08 lisinopril AdvReac Intermediate Cough Verified 06/20/22 19:08 Home Medications Medication Instructions Recorded Confirmed Type levothyroxine 75 mcg tablet 75 mcg PO DAILYBB 11/18/20 06/20/22 History pantoprazole 40 mg tablet,delayed 40 mg PO QAM 11/18/20 06/20/22 History release nifedipine 90 mg tablet,extended 90 mg PO QAM 05/20/21 06/20/22 History release 24 hr hydrocodone 5 mg-acetaminophen 325 1 tab PO Q8H PRN Pain 06/01/21 06/20/22 History mg tablet irbesartan 300 mg tablet (Avapro) 300 mg PO QPM 06/01/21 06/20/22 History hydralazine 10 mg tablet 10 mg PO DIRECTED PRN SBP >180 09/05/21 06/20/22 History prednisone 5 mg tablet 5 mg PO DAILY 09/05/21 06/20/22 History escitalopram oxalate 10 mg tablet 10 mg PO QAM #30 tabs 09/09/21 06/20/22 Rx gabapentin 600 mg tablet 600 mg PO TID 01/25/22 06/20/22 History carvedilol 3.125 mg tablet 3.125 mg PO BID 06/20/22 06/20/22 History diclofenac sodium 2 % topical 1 packet topical BID PRN Pain 06/20/22 06/20/22 History solution in packet (Pennsaid) famotidine 10 mg tablet 10 mg PO HS 06/20/22 06/20/22 History magnesium oxide 500 mg tablet 500 mg PO HS 06/20/22 06/20/22 History ropinirole 2 mg tablet 2 mg PO HS 06/20/22 06/20/22 History tizanidine 4 mg capsule 4 mg PO HS 06/20/22 06/20/22 History Past Med/Surg History Medical History Anxiety CKD (chronic kidney disease), stage III Depression Elevated troponin I level Glaucoma Herniated lumbar disc without myelopathy Left central disc herniation at L5-S1 High cholesterol Hypertension Hypertensive emergency Hypothyroidism Lumbar radiculopathy Neuropathy FEET Osteoarthritis Restless leg syndrome Rheumatoid arthritis FOLLOWS DR. TREVINO Rotator cuff tear, left Spinal stenosis, lumbar region with neurogenic claudication Surgical History History of carpal tunnel release RIGHT HAND History of total bilateral knee replacement (TKR) Hx laparoscopic cholecystectomy Hx of arthroscopy RIGHT KNEE (MENISCUS) Hx of hysterectomy Hx of tonsillectomy Family History Mother Family history of reaction to anesthesia SLOW TO AWAKEN Social History Smoking Status: Never smoker Second Hand Exposure: No; Hx Alcohol Use: Yes Alcohol type: other Hx Substance Use: No Preferred Language: Persian Communication Ability: Effective Visual Impairment: No Limitations Lens Blocker Required: No Beliefs That Will Affect Care: None marital status: Single Current Living Situation: Alone Current Living Situation Comment: needs 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 Physical Exam On physical examination of her left hip, she has good range of motion. All of her pain is located over the greater trochanteric bursa on the left.. Constitutional WD/WN, vitals as above Eyes PERRL, conjunctivae normal, anicteric sclerae ENMT external ear and nose normal, oropharynx normal Neck trachea midline, no thyromegaly Respiratory normal respiratory effort, lungs clear to auscultation Cardiovascular RRR, no murmur, no edema Gastrointestinal (Abdomen) normal bowel sounds, soft, nontender, no hepatosplenomegaly Skin no rashes, warm and dry Psychiatric A+Ox3, euthymic affect Results & Data Results & Data Laboratory Results . Diagnostic Findings . PG Care Time/CCT Total # of Minutes Spent Total Time Spent with Patient: Total time spent is greater than 50% in coordination of care (as documented) at patient's floor/unit and/or counseling patient: Coding Level of Care Code 75096 IN/OBS CONSULT LVL 3,45M Diagnoses Greater trochanteric bursitis of left hip M70.62
[2022-06-23] MEDS ORDERED: BUPIVACAINE 0.5 % 5 MG/1 ML MPF 30ML VIAL INFIL ONE (15:45)
[2022-06-23] MEDS ORDERED: TRIAMCINOLONE ACET 40 MG/ML VIAL IA ONE (15:45)
[2022-06-23] MEDS: DICLOFENAC SOD 1% GEL 100 GM TUBE EXT PRN (18:43)
--- NOTE | 2022-06-23 20:57 | XRay Report ---
XR chest 1V portable HISTORY: Follow-up left lower lobe pneumonia COMPARISON: Chest 06/20/2022. FINDINGS: No pneumothorax. The cardiac silhouette remains mildly enlarged. The right lung is clear. I mprovement in the left lung airspace opacities and trace left pleural effusion. No evidence for pulmo nary edema. No change in the right third rib focal deformity/expansion. This may represent an old, he aled fracture. IMPRESSION: Slight improvement in the left lung airspace opacities and trace left pleural effusion. ACT 112: Negative or not required by law. Electronically signed by: Guzman Sparks M.D. 06/23/2022 8:54 PM
[2022-06-23] MEDS: rOPINIRole HCL 2 MG TABLET PO SCH (22:35)
[2022-06-23] MEDS: HYDROCODONE/ACETAMOPHEN 5/325MG TAB PO PRN (22:36)
[2022-06-23] MEDS: tiZANidine HCL 4 MG TABLET PO SCH (22:36)
[2022-06-23] MEDS ORDERED: LOSARTAN POTASSIUM 50 MG TAB PO STA (22:44)
[2022-06-23] MEDS: FAMOTIDINE 10 MG TABLET PO SCH (23:17)
[2022-06-24] MEDS: hydrALAZINE HCL 20 MG/ML VIAL IV PRN ×2 (03:44→16:08)
[2022-06-24] MEDS ORDERED: hydrALAZINE HCL 20 MG/ML VIAL IV ONE (06:13)
[2022-06-24] MEDS: HYDROCODONE/ACETAMOPHEN 5/325MG TAB PO PRN ×2 (06:23→20:55)
[2022-06-24] MEDS: diphenhydrAMINE Capsule 25 MG CAP PO PRN (06:27)
[2022-06-24] MEDS: HEPARIN SOD 5,000 UNIT/0.5 ML VIAL SQ SCH ×3 (06:40→21:45)
[2022-06-24] MEDS: LEVOTHYROXINE SODIUM 75 MCG TABLET PO SCH (06:40)
--- NOTE | 2022-06-24 07:19 | Orthopedic Progress Note ---
Date of Service June 24, 2022 Assessment & Plan (1) Greater trochanteric bursitis of left hip: I gave her a left greater trochanteric bursa injection at bedside. I used 80 mg of Kenalog. Hopefully calm down some of her symptoms. The injections take a day or 2 to get gain in a full week to take full effect. She can follow-up with Dr. Yanez as previously scheduled. Procedure: The patient's left greater trochanteric bursa was injected with 80 mg of Kenalog and 5 cc of 0.5% Marcaine. The injection site was prepped with alcohol swabs. The hip was then injected. A Band-Aid was placed. She tolerated the procedure well. Ольга Fenton was seen and examined at bedside this morning. She is still having a lot of pain in the left hip. She was hoping for a greater trochanteric bursa injection.. Review of Systems All systems reviewed & are unremarkable except as noted in HPI & below. Physical Exam On physical examination left hip, she has pain over the greater trochanteric bursa.. Results & Data Results & Data Laboratory Results . Diagnostic Findings . PG Care Time/CCT Total # of Minutes Spent Total Time Spent with Patient: Total time spent is greater than 50% in coordination of care (as documented) at patient's floor/unit and/or counseling patient: Coding Level of Care Code 97705 SUB INP/OBS CARE 2/35MIN (25 - SIGNIFICANT, SEPARATELY IDENTIFIABLE ) Diagnoses Greater trochanteric bursitis of left hip M70.62
[2022-06-24 07:55] LABS: Hematocrit (blood only) 28.2 % (37.0-47.0); Hemoglobin 9.2 g/dl (12.0-16.0); Mean Corpuscular Hemoglobin 29.6 pg (25.0-34.0); Mean Corpuscular Hgb Conc 32.6 g/dL (32.0-36.0); Mean Corpuscular Volume 90.7 fL (80.0-100.0); Mean Platelet Volume 9.6 fL (9.4-12.4); Platelet Count 230 K/uL (130-400); RDW Coefficient of Variation 15.4 % (11.5-14.5); RDW Standard Deviation 50.9 fL (36.4-46.3); Red Blood Count 3.11 M/uL (4.20-5.40)
[2022-06-24] MEDS ORDERED: POTASSIUM CHLORIDE CRTAB 20 MEQ TABCR PO STA (07:58)
[2022-06-24] MEDS: cefTRIAXone SODIUM 2,000 MG in DEXTROSE 5% 50 ML IV SCH (09:00)
[2022-06-24] MEDS: AZITHROMYCIN 250 MG TAB PO SCH (10:30)
[2022-06-24] MEDS: predniSONE 5 MG TAB PO SCH (10:31)
[2022-06-24] MEDS: NIFEdipine EXTENDED REL 30 MG TABCR PO SCH (10:31)
[2022-06-24] MEDS: GABAPENTIN 100 MG CAP PO SCH ×3 (10:31→20:30)
[2022-06-24] MEDS: PANTOprazole 40 MG TAB PO SCH (10:32)
[2022-06-24] MEDS: FLUTICASONE PROPIONATE NA SPR 16 GM BTL SCH (10:32)
[2022-06-24] MEDS: NYSTATIN POWDER 15GM BTL EXT SCH ×3 (10:32→20:31)
[2022-06-24] MEDS: ESCITALOPRAM OXALATE 10 MG TAB PO SCH (10:33)
[2022-06-24] MEDS: carvediloL 6.25 MG TAB PO SCH ×2 (10:34→20:30)
--- NOTE | 2022-06-24 16:20 | Hospitalist Progress Note ---
Date of Service June 24, 2022 Assessment & Plan (1) Acute hypoxemic respiratory failure: Plan: Secondary to complicated pneumonia, community-acquired infection Immunocompromised patient, hx chronic steroid Rx for RA Patient not septic. supplemental O2 Solu-Medrol 1 dose now for bronchopneumonia given hypoxemia Ceftriaxone, Doxycycline had changed to azithromycin Pulmonary consult if without improvement Clinically little better and denies any shortness of breath at rest and no cough and no chest pain Will get chest x-ray PA and lateral view to evaluate pneumonia Chest x-ray showing much improvement of the pneumonia and clinically she is much better We will get PT and OT evaluation prior to discharge on Sunday Acute allergy Has been using Flonase as an outpatient Flonase was prescribed and she was given Benadryl as needed to decrease runny nose Allergic symptoms symptoms are better Urinary incontinence Complains to have a stress incontinence Leaks urine with coughing or sneezing and has been having recently Urinary incontinence from today Pyridium was given for dysuria Urine examination did not show any infection Urbina will be placed for convenience Diarrhea Likely secondary to antibiotic We will get C. difficile toxin-negative (2) HTN (hypertension): Plan: Remains on the upper side Continue current medications Blood pressure remains elevated without any symptoms Blood pressure remains on the upper side Her home medications have been restarted (3) Community acquired pneumonia: Plan: As above-has been on intravenous ceftriaxone and doxycycline (4) Gastroenteritis: Plan: Diarrhea symptoms rule out infectious causes that may warrant treatment Having diarrheal episode C. difficile has been negative Stool culture came back positive for e EPEC Oxygen again has been changed to azithromycin No more diarrhea (5) Elevated troponin: Plan: Troponin elevation secondary to illness in the setting of kidney dysfunction Asymptomatic and negative EKG changes ,doubt any ACS Likely secondary to demand ischemia (6) CKD (chronic kidney disease), stage III: Plan: ARF on CKD secondary to illness Advised to drink more fluid and she has been receiving cautious amount of intravenous fluid Creatinine has been improving and it is 1.91 as of 06/21/2022 (7) Hypothyroidism: Plan: Continue supplement (8) Bilateral leg edema: Plan: Complains to have occasional leg swelling more on the left than the right Has been having recently Likely secondary to diastolic failure from tachycardia History of grade 1 diastolic dysfunction as of echo in May 2021 Plan Other significant medical conditions as below: Hypothyroidism, unknown control Chronic anemia, hemoglobin better than baseline likely secondary to hemoconcentration Anxiety/mood disorder, at baseline Possible functional disability PT OT eval once medically stable DVT prophylaxis. Heparin subcu Full code Patient request for her friend to be given updates regarding her care as needed. Ms. Barbara Varela, contact #[phone]. Likely discharge on Sunday Admission and Anticipated Discharge Date Admission Date: June 20, 2022 Subjective 06/21/2022 The patient was seen and examined in medical telemetry unit She has been feeling much better but complains to have sneezing and nasal drainage since admission Her cough is better and denies any chest pain and her palpitation or shortness of breath at rest No fever and or chills 06/22/2022 The patient was seen and examined in medical telemetry unit She has been feeling worse today with more drowsiness but less shortness of breath She is more bothered with frequent urination without dysuria She also has runny nose which is minimally improved with Benadryl 06/23/2022 The patient was seen and examined in medical telemetry unit She has been very anxious and the blood pressure noted to be very high since this morning She is reassured and blood pressure medications have been updated Has been having diarrhea with excoriation of the bottom Stool will be sent for C. difficile toxin Her breathing is better denies any cough and no shortness of breath at rest 06/24/2022 The patient was seen and examined in medical telemetry unit She has been feeling much better today She has had injection of the left greater trochanteric bursa Denies any significant symptoms Review of Systems Review of Systems: All systems reviewed and are unremarkable except as noted below Physical Exam Physical Exam: Lying in bed, very tired and very very anxious Constitutional: well developed, well nourished, + ill appearing and + obese Eyes: PERRL, conjunctivae normal, anicteric sclerae ENMT: external ear and nose normal, oropharynx normal Neck: trachea midline, no thyromegaly Respiratory: no respiratory distress Auscultation: + diminished lung sounds and + crackles (Minimal left basilar crackles) Cardiovascular: Rate/Rhythm: regular rate and regular rhythm; not tachycardic Heart Sounds: normal S1, normal S2 and + murmur Extremities: + edema (Bilateral breast leg edema, a little worse on the left) Gastrointestinal (Abdomen): Inspection/Auscultation: normal bowel sounds; abdomen not distended Percussion/Palpation: abdomen soft; abdomen nontender Neurologic: normal touch/pain/proprioception and moves all extremities; no focal motor deficits Psychiatric: A+Ox3, euthymic affect Lymphatic: no cervical or axillary lymphadenopathy Results & Data Results & Data Vital Signs (Past 12 Hours) Vital Signs Temp Pulse Pulse Resp BP Pulse Ox O2 Del Method 06/24/22 14:07 83 06/24/22 15:19 36.9 C 75 18 190/84 H 94 Room Air 06/24/22 11:30 36.5 C 79 16 143/80 H 97 Room Air 06/24/22 09:05 Nasal Cannula 06/24/22 07:35 36.7 C 84 16 209/91 H 98 Nasal Cannula 06/24/22 08:51 36.6 C 87 16 138/76 97 Nasal Cannula 06/24/22 06:45 83 06/24/22 06:31 190/90 H O2 Flow Rate 06/24/22 14:07 06/24/22 15:19 06/24/22 11:30 06/24/22 09:05 2 06/24/22 07:35 2 06/24/22 08:51 2 06/24/22 06:45 06/24/22 06:31 Laboratory Results Short CBC 06/24/22 Range/Units 06:41 WBC 9.10 D (4.8-10.8) K/ul Hgb 9.2 L (12.0-16.0) g/dl Hct 28.2 L (37.0-47.0) % Plt Count 230 (130-400) K/uL Medications Administered Current Inpatient Medications Acetaminophen (Acetaminophen 325 Mg Tab) 650 mg PO Q4H PRN PRN Reason: Pain or Fever Stop: 07/21/22 00:08 Hydrocodone Bitart/Acetaminophen (Hydrocodone/Acetamophen 5/325mg Tab) 1 tab PO QID PRN PRN Reason: Pain Stop: 07/04/22 22:05 Last Admin: 06/24/22 06:23 Dose: 1 tab Azithromycin (Azithromycin 250 Mg Tab) 250 mg PO QAM [facility] Stop: 06/26/22 08:59 Last Admin: 06/24/22 10:30 Dose: 250 mg Carvedilol (Carvedilol 6.25 Mg Tab) 6.25 mg PO BID [facility] Stop: 07/23/22 08:29 Last Admin: 06/24/22 10:34 Dose: 6.25 mg Diclofenac Sodium (Diclofenac Sod 1% Gel 100 Gm Tube) 2 gm EXT BID PRN; Protoco l PRN Reason: Pain Stop: 07/22/22 20:59 Last Admin: 06/23/22 18:43 Dose: 2 gm Diphenhydramine HCl (Diphenhydramine Capsule 25 Mg Cap) 25 mg PO TID PRN PRN Reason: Nasal Congestion Stop: 07/22/22 10:40 Last Admin: 06/24/22 06:27 Dose: 25 mg Escitalopram Oxalate (Escitalopram Oxalate 10 Mg Tab) 10 mg PO QAM [facility] Stop: 07/21/22 08:59 Last Admin: 06/24/22 10:33 Dose: 10 mg Famotidine (Famotidine 10 Mg Tablet) 10 mg PO HS [facility] Stop: 07/21/22 20:59 Last Admin: 06/23/22 23:17 Dose: Not Given Fluticasone Propionate (Fluticasone Propionate Na Spr 16 Gm Btl) 2 sprays NA DAILY [facility] Stop: 07/21/22 13:59 Last Admin: 06/24/22 10:32 Dose: 2 sprays Gabapentin (Gabapentin 100 Mg Cap) 200 mg PO TID [facility] Stop: 07/21/22 08:59 Last Admin: 06/24/22 14:11 Dose: 200 mg Heparin Sodium (Porcine) (Heparin Sod 5,000 Unit/0.5 Ml Vial) 5,000 units SQ Q8H [facility] Stop: 07/21/22 05:59 Last Admin: 06/24/22 14:11 Dose: 5,000 units Hydralazine HCl (Hydralazine Hcl 20 Mg/Ml Vial) 7.5 mg IV Q6H PRN PRN Reason: Hypertension Stop: 07/23/22 03:42 Last Admin: 06/24/22 16:08 Dose: 7.5 mg Promethazine HCl 6.25 mg/ (Sodium Chloride) 50.25 mls @ 201 mls/hr IV Q6H PRN PRN Reason: Nausea And Vomiting Stop: 07/20/22 22:06 Last Infusion: 06/22/22 09:49 Dose: Infused Ceftriaxone Sodium 2,000 mg/ (Dextrose) 70 mls @ 100 mls/hr IV DAILY [facility]; Protocol Stop: 06/28/22 08:59 Last Infusion: 06/24/22 09:48 Dose: Infused Levothyroxine Sodium (Levothyroxine Sodium 75 Mcg Tablet) 75 mcg PO DAILYBB [facility] Stop: 07/21/22 06:29 Last Admin: 06/24/22 06:40 Dose: 75 mcg Losartan Potassium (Losartan Potassium 50 Mg Tab) 100 mg PO QPM [facility] Stop: 07/24/22 20:59 Nifedipine (Nifedipine Extended Rel 30 Mg Tabcr) 90 mg PO QAM [facility] Stop: 07/21/22 08:59 Last Admin: 06/24/22 10:31 Dose: 90 mg Nystatin (Nystatin Powder 15gm Btl) 1 appln EXT TID [facility] Stop: 07/21/22 20:59 Last Admin: 06/24/22 14:11 Dose: 1 appln Pantoprazole Sodium (Pantoprazole 40 Mg Tab) 40 mg PO QAM [facility] Stop: 07/21/22 08:59 Last Admin: 06/24/22 10:32 Dose: 40 mg Phenazopyridine HCl (Phenazopyridine Hcl 100 Mg Tab) 100 mg PO TID PRN PRN Reason: Dysuria Stop: 07/22/22 10:40 Last Admin: 06/22/22 11:23 Dose: 100 mg Prednisone (Prednisone 5 Mg Tab) 5 mg PO DAILY [facility] Stop: 07/21/22 08:59 Last Admin: 06/24/22 10:31 Dose: 5 mg Ropinirole HCl (Ropinirole Hcl 2 Mg Tablet) 2 mg PO HS [facility] Stop: 07/21/22 20:59 Last Admin: 06/23/22 22:35 Dose: 2 mg Tizanidine HCl (Tizanidine Hcl 4 Mg Tablet) 2 mg PO HS [facility] Stop: 07/21/22 20:59 Last Admin: 06/23/22 22:36 Dose: 2 mg (2) HTN (hypertension) Hypertension type: unspecified Qualified Code(s): I10 - Essential (primary) hypertension (6) CKD (chronic kidney disease), stage III Chronic kidney disease stage 3 subtype: stage 3a (GFR 45-59) Qualified Code(s): N18.31 - Chronic kidney disease, stage 3a
[2022-06-24] MEDS: rOPINIRole HCL 2 MG TABLET PO SCH (20:30)
[2022-06-24] MEDS: FAMOTIDINE 10 MG TABLET PO SCH (20:30)
[2022-06-24] MEDS: LOSARTAN POTASSIUM 50 MG TAB PO SCH (20:31)
[2022-06-24] MEDS: tiZANidine HCL 4 MG TABLET PO SCH (20:31)
[2022-06-25] MEDS: hydrALAZINE HCL 20 MG/ML VIAL IV PRN ×2 (02:56→15:16)
[2022-06-25] MEDS: HEPARIN SOD 5,000 UNIT/0.5 ML VIAL SQ SCH ×3 (05:21→19:56)
[2022-06-25] MEDS: LEVOTHYROXINE SODIUM 75 MCG TABLET PO SCH (05:21)
[2022-06-25 07:08] LABS: BUN Creatinine Ratio 30.2 (10-20); Calcium 8.7 mg/dl (8.6-10.3); Creatinine Clr Calc Pharmacy 38.7 ml/min; Est GFR (African American) 51.9 ml/min; Est GFR (Non-African American) 44.7 ml/min; Potassium 4.2 mmol/L (3.5-5.1)
[2022-06-25] MEDS: predniSONE 5 MG TAB PO SCH (09:04)
[2022-06-25] MEDS: AZITHROMYCIN 250 MG TAB PO SCH (09:04)
[2022-06-25] MEDS: PANTOprazole 40 MG TAB PO SCH (09:04)
[2022-06-25] MEDS: ESCITALOPRAM OXALATE 10 MG TAB PO SCH (09:06)
[2022-06-25] MEDS: NIFEdipine EXTENDED REL 30 MG TABCR PO SCH (09:06)
[2022-06-25] MEDS: GABAPENTIN 100 MG CAP PO SCH ×3 (09:06→19:51)
[2022-06-25] MEDS: NYSTATIN POWDER 15GM BTL EXT SCH ×3 (09:07→19:55)
[2022-06-25] MEDS: FLUTICASONE PROPIONATE NA SPR 16 GM BTL SCH (09:08)
[2022-06-25] MEDS: carvediloL 12.5 MG TAB PO SCH ×2 (09:11→20:00)
[2022-06-25] MEDS: cefTRIAXone SODIUM 2,000 MG in DEXTROSE 5% 50 ML IV SCH (09:21)
--- NOTE | 2022-06-25 12:58 | Hospitalist Progress Note ---
Date of Service June 25, 2022 Assessment & Plan (1) Acute hypoxemic respiratory failure: Plan: Secondary to complicated pneumonia, community-acquired infection Immunocompromised patient, hx chronic steroid Rx for RA Patient not septic. supplemental O2 Solu-Medrol 1 dose now for bronchopneumonia given hypoxemia Ceftriaxone, Doxycycline had changed to azithromycin Pulmonary consult if without improvement Clinically little better and denies any shortness of breath at rest and no cough and no chest pain Will get chest x-ray PA and lateral view to evaluate pneumonia Chest x-ray showing much improvement of the pneumonia and clinically she is much better We will get PT and OT evaluation prior to discharge on Sunday Respiratory symptoms and has been saturating normally on room air Acute allergy Has been using Flonase as an outpatient Flonase was prescribed and she was given Benadryl as needed to decrease runny nose Allergic symptoms symptoms are better We will continue with hydroxyzine to control the allergy and also anxiety Urinary incontinence Complains to have a stress incontinence Leaks urine with coughing or sneezing and has been having recently Urinary incontinence from today Pyridium was given for dysuria Urine examination did not show any infection Urbina will be placed for convenience Diarrhea Likely secondary to antibiotic We will get C. difficile toxin-negative Diarrhea is better (2) HTN (hypertension): Plan: Remains on the upper side Continue current medications Blood pressure remains elevated without any symptoms Blood pressure remains on the upper side Her home medications have been restarte Coreg has been increased to 12.5 mg twice daily We will send home with 6.25 twice daily (3) Community acquired pneumonia: Plan: As above-has been on intravenous ceftriaxone and doxycycline We will continue with overall made to finish the course (4) Gastroenteritis: Plan: Diarrhea symptoms rule out infectious causes that may warrant treatment Having diarrheal episode C. difficile has been negative Stool culture came back positive for e EPEC Oxygen again has been changed to azithromycin No more diarrhea (5) Elevated troponin: Plan: Troponin elevation secondary to illness in the setting of kidney dysfunction Asymptomatic and negative EKG changes ,doubt any ACS Likely secondary to demand ischemia (6) CKD (chronic kidney disease), stage III: Plan: ARF on CKD secondary to illness Advised to drink more fluid and she has been receiving cautious amount of intravenous fluid Creatinine has been improving and it is 1.91 as of 06/21/2022 Her kidney function is normalized (7) Hypothyroidism: Plan: Continue supplement (8) Bilateral leg edema: Plan: Complains to have occasional leg swelling more on the left than the right Has been having recently Likely secondary to diastolic failure from tachycardia History of grade 1 diastolic dysfunction as of echo in May 2021 Plan Other significant medical conditions as below: Hypothyroidism, unknown control Chronic anemia, hemoglobin better than baseline likely secondary to hemoconcentration Anxiety/mood disorder, at baseline Possible functional disability PT OT eval once medically stable DVT prophylaxis. Heparin subcu Full code Patient request for her friend to be given updates regarding her care as needed. Ms. Barbara Varela, contact #[phone]. Likely discharge on Sunday Will have 2 steps O2 saturation test tomorrow Admission and Anticipated Discharge Date Admission Date: June 20, 2022 Subjective 06/21/2022 The patient was seen and examined in medical telemetry unit She has been feeling much better but complains to have sneezing and nasal drainage since admission Her cough is better and denies any chest pain and her palpitation or shortness of breath at rest No fever and or chills 06/22/2022 The patient was seen and examined in medical telemetry unit She has been feeling worse today with more drowsiness but less shortness of breath She is more bothered with frequent urination without dysuria She also has runny nose which is minimally improved with Benadryl 06/23/2022 The patient was seen and examined in medical telemetry unit She has been very anxious and the blood pressure noted to be very high since this morning She is reassured and blood pressure medications have been updated Has been having diarrhea with excoriation of the bottom Stool will be sent for C. difficile toxin Her breathing is better denies any cough and no shortness of breath at rest 06/24/2022 The patient was seen and examined in medical telemetry unit She has been feeling much better today She has had injection of the left greater trochanteric bursa Denies any significant symptoms 06/25/2022 The patient was seen and examined in medical telemetry unit She has been feeling much better today but the blood pressure remains elevated She will need to have antianxiety medication like Vistaril to control the blood pressure as she insisted Her cough is better and there is no shortness of breath Review of Systems Review of Systems: All systems reviewed and are unremarkable except as noted below Physical Exam Physical Exam: Lying in bed, very tired and very very anxious Constitutional: well developed, well nourished, + ill appearing and + obese Eyes: PERRL, conjunctivae normal, anicteric sclerae ENMT: external ear and nose normal, oropharynx normal Neck: trachea midline, no thyromegaly Respiratory: no respiratory distress Auscultation: + diminished lung sounds and + crackles (Minimal left basilar crackles) Cardiovascular: Rate/Rhythm: regular rate and regular rhythm; not tachycardic Heart Sounds: normal S1, normal S2 and + murmur Extremities: + edema (Bilateral breast leg edema, a little worse on the left) Gastrointestinal (Abdomen): Inspection/Auscultation: normal bowel sounds; abdomen not distended Percussion/Palpation: abdomen soft; abdomen nontender Musculoskeletal: No acute arthritis involving any joint Neurologic: normal touch/pain/proprioception and moves all extremities; no focal motor deficits Psychiatric: A+Ox3, euthymic affect Lymphatic: no cervical or axillary lymphadenopathy Results & Data Results & Data Vital Signs (Past 12 Hours) Vital Signs Temp Pulse Pulse Pulse Resp BP Pulse Ox 06/25/22 12:39 36.6 C 87 16 175/83 H 99 06/25/22 10:10 157/91 H 06/25/22 07:45 36.8 C 97 H 16 207/85 H 94 06/25/22 06:45 90 06/25/22 05:21 172/84 H 06/25/22 03:26 37.2 C 85 20 190/101 H 95 O2 Del Method 06/25/22 12:39 Room Air 06/25/22 10:10 06/25/22 07:45 Room Air 06/25/22 06:45 06/25/22 05:21 06/25/22 03:26 Room Air Laboratory Results [facility] 06/25/22 06:24 Sodium 141 Potassium 4.2 D Chloride 111 H Carbon Dioxide 21 BUN 35 H Creatinine 1.16 Glucose 105 H Calcium 8.7 Medications Administered Current Inpatient Medications Acetaminophen (Acetaminophen 325 Mg Tab) 650 mg PO Q4H PRN PRN Reason: Pain or Fever Stop: 07/21/22 00:08 Hydrocodone Bitart/Acetaminophen (Hydrocodone/Acetamophen 5/325mg Tab) 1 tab PO QID PRN PRN Reason: Pain Stop: 07/04/22 22:05 Last Admin: 06/24/22 20:55 Dose: 1 tab Azithromycin (Azithromycin 250 Mg Tab) 250 mg PO QAM [facility] Stop: 06/26/22 08:59 Last Admin: 06/25/22 09:04 Dose: 250 mg Carvedilol (Carvedilol 12.5 Mg Tab) 12.5 mg PO BID [facility] Stop: 07/25/22 08:59 Last Admin: 06/25/22 09:11 Dose: 12.5 mg Diclofenac Sodium (Diclofenac Sod 1% Gel 100 Gm Tube) 2 gm EXT BID PRN; Protocol PRN Reason: Pain Stop: 07/22/22 20:59 Last Admin: 06/23/22 18:43 Dose: 2 gm Escitalopram Oxalate (Escitalopram Oxalate 10 Mg Tab) 10 mg PO QAM [facility] Stop: 07/21/22 08:59 Last Admin: 06/25/22 09:06 Dose: 10 mg Famotidine (Famotidine 10 Mg Tablet) 10 mg PO HS [facility] Stop: 07/21/22 20:59 Last Admin: 06/24/22 20:30 Dose: Not Given Fluticasone Propionate (Fluticasone Propionate Na Spr 16 Gm Btl) 2 sprays NA DAILY [facility] Stop: 07/21/22 13:59 Last Admin: 06/25/22 09:08 Dose: 2 sprays Gabapentin (Gabapentin 100 Mg Cap) 200 mg PO TID [facility] Stop: 07/21/22 08:59 Last Admin: 06/25/22 09:06 Dose: 200 mg Heparin Sodium (Porcine) (Heparin Sod 5,000 Unit/0.5 Ml Vial) 5,000 units SQ Q8H [facility] Stop: 07/21/22 05:59 Last Admin: 06/25/22 05:21 Dose: 5,000 units Hydralazine HCl (Hydralazine Hcl 20 Mg/Ml Vial) 7.5 mg IV Q6H PRN PRN Reason: Hypertension Stop: 07/23/22 03:42 Last Admin: 06/25/22 02:56 Dose: 7.5 mg Hydroxyzine HCl (Hydroxyzine Hcl 10 Mg Tab) 10 mg PO TID [facility] Stop: 07/25/22 13:59 Promethazine HCl 6.25 mg/ (Sodium Chloride) 50.25 mls @ 201 mls/hr IV Q6H PRN PRN Reason: Nausea And Vomiting Stop: 07/20/22 22:06 Last Infusion: 06/22/22 09:49 Dose: Infused Ceftriaxone Sodium 2,000 mg/ (Dextrose) 70 mls @ 100 mls/hr IV DAILY [facility]; Protocol Stop: 06/28/22 08:59 Last Infusion: 06/25/22 10:03 Dose: Infused Levothyroxine Sodium (Levothyroxine Sodium 75 Mcg Tablet) 75 mcg PO DAILYBB [facility] Stop: 07/21/22 06:29 Last Admin: 06/25/22 05:21 Dose: 75 mcg Losartan Potassium (Losartan Potassium 50 Mg Tab) 100 mg PO QPM [facility] Stop: 07/24/22 20:59 Last Admin: 06/24/22 20:31 Dose: 100 mg Nifedipine (Nifedipine Extended Rel 30 Mg Tabcr) 90 mg PO QAM [facility] Stop: 07/21/22 08:59 Last Admin: 06/25/22 09:06 Dose: 90 mg Nystatin (Nystatin Powder 15gm Btl) 1 appln EXT TID [facility] Stop: 07/21/22 20:59 Last Admin: 06/25/22 09:07 Dose: 1 appln Pantoprazole Sodium (Pantoprazole 40 Mg Tab) 40 mg PO QAM [facility] Stop: 07/21/22 08:59 Last Admin: 06/25/22 09:04 Dose: 40 mg Phenazopyridine HCl (Phenazopyridine Hcl 100 Mg Tab) 100 mg PO TID PRN PRN Reason: Dysuria Stop: 07/22/22 10:40 Last Admin: 06/22/22 11:23 Dose: 100 mg Prednisone (Prednisone 5 Mg Tab) 5 mg PO DAILY [facility] Stop: 07/21/22 08:59 Last Admin: 06/25/22 09:04 Dose: 5 mg Ropinirole HCl (Ropinirole Hcl 2 Mg Tablet) 2 mg PO HS [facility] Stop: 07/21/22 20:59 Last Admin: 06/24/22 20:30 Dose: 2 mg Tizanidine HCl (Tizanidine Hcl 4 Mg Tablet) 2 mg PO HS [facility] Stop: 07/21/22 20:59 Last Admin: 06/24/22 20:31 Dose: 2 mg (2) HTN (hypertension) Hypertension type: unspecified Qualified Code(s): I10 - Essential (primary) hypertension (6) CKD (chronic kidney disease), stage III Chronic kidney disease stage 3 subtype: stage 3a (GFR 45-59) Qualified Code(s): N18.31 - Chronic kidney disease, stage 3a
[2022-06-25] MEDS: hydrOXYzine HCl 10 MG TAB PO SCH ×2 (14:03→20:00)
[2022-06-25] MEDS: DICLOFENAC SOD 1% GEL 100 GM TUBE EXT PRN (16:11)
[2022-06-25] MEDS: FAMOTIDINE 10 MG TABLET PO SCH (19:52)
[2022-06-25] MEDS: tiZANidine HCL 4 MG TABLET PO SCH (19:54)
[2022-06-25] MEDS: rOPINIRole HCL 2 MG TABLET PO SCH (19:55)
[2022-06-25] MEDS: LOSARTAN POTASSIUM 50 MG TAB PO SCH (21:41)
[2022-06-26] MEDS: hydrALAZINE HCL 20 MG/ML VIAL IV PRN (03:26)
[2022-06-26] MEDS ORDERED: cloNIDine HCL 0.1 MG TAB PO ONE (05:51)
[2022-06-26] MEDS: LEVOTHYROXINE SODIUM 75 MCG TABLET PO SCH (06:08)
[2022-06-26] MEDS: HEPARIN SOD 5,000 UNIT/0.5 ML VIAL SQ SCH ×2 (06:08→13:52)
[2022-06-26 06:52] LABS: Hematocrit (blood only) 31.3 % (37.0-47.0); Hemoglobin 10.2 g/dl (12.0-16.0); Mean Corpuscular Hemoglobin 29.5 pg (25.0-34.0); Mean Corpuscular Hgb Conc 32.6 g/dL (32.0-36.0); Mean Corpuscular Volume 90.5 fL (80.0-100.0); Mean Platelet Volume 9.3 fL (9.4-12.4); Platelet Count 258 K/uL (130-400); RDW Coefficient of Variation 15.9 % (11.5-14.5); RDW Standard Deviation 51.7 fL (36.4-46.3); Red Blood Count 3.46 M/uL (4.20-5.40); White Blood Count 10.47 K/ul (4.8-10.8)
[2022-06-26 07:25] LABS: Immature Granulocytes # (auto) 0.99 K/uL (0.01-0.20); Immature Granulocytes % (auto) 9.5 %; Lymphocytes # (auto) 1.33 K/uL (1.2-3.4); Lymphocytes % (auto) 12.7 %; Monocytes # (auto) 1.27 K/uL (0.11-0.59); Monocytes % (auto) 12.1 %; Neutrophils # (auto) 6.68 K/uL (1.40-6.50); Neutrophils % (auto) 63.7 %
[2022-06-26] MEDS: hydrOXYzine HCl 10 MG TAB PO SCH (07:29)
[2022-06-26] MEDS: GABAPENTIN 100 MG CAP PO SCH ×2 (07:29→13:52)
[2022-06-26] MEDS: ESCITALOPRAM OXALATE 10 MG TAB PO SCH (07:30)
[2022-06-26] MEDS: predniSONE 5 MG TAB PO SCH (07:30)
[2022-06-26] MEDS: PANTOprazole 40 MG TAB PO SCH (07:30)
[2022-06-26] MEDS: carvediloL 12.5 MG TAB PO SCH (07:31)
[2022-06-26] MEDS: FLUTICASONE PROPIONATE NA SPR 16 GM BTL SCH (07:31)
[2022-06-26] MEDS: NIFEdipine EXTENDED REL 30 MG TABCR PO SCH (07:32)
[2022-06-26] MEDS: NYSTATIN POWDER 15GM BTL EXT SCH ×2 (07:33→13:53)
[2022-06-26] MEDS: cefTRIAXone SODIUM 2,000 MG in DEXTROSE 5% 50 ML IV SCH (07:41)
[2022-06-26 09:39] LABS: Calcium 8.7 mg/dl (8.6-10.3); Potassium 4.2 mmol/L (3.5-5.1)
[2022-06-26 09:45] LABS: BUN Creatinine Ratio 31.7 (10-20); Creatinine Clr Calc Pharmacy 35.1 ml/min; Est GFR (African American) 46.9 ml/min; Est GFR (Non-African American) 40.5 ml/min
--- NOTE | 2022-06-26 13:01 | Hospitalist Progress Note ---
Date of Service June 26, 2022 Assessment & Plan (1) Acute hypoxemic respiratory failure: Plan: Secondary to complicated pneumonia, community-acquired infection Immunocompromised patient, hx chronic steroid Rx for RA Patient not septic. supplemental O2 Solu-Medrol 1 dose now for bronchopneumonia given hypoxemia Ceftriaxone, Doxycycline had changed to azithromycin Pulmonary consult if without improvement Clinically little better and denies any shortness of breath at rest and no cough and no chest pain Will get chest x-ray PA and lateral view to evaluate pneumonia Chest x-ray showing much improvement of the pneumonia and clinically she is much better We will get PT and OT evaluation prior to discharge on Sunday Respiratory symptoms and has been saturating normally on room air To the steps O2 saturation test was unremarkable and she does not require any ox ygen He will be discharged home this afternoon Acute allergy Has been using Flonase as an outpatient Flonase was prescribed and she was given Benadryl as needed to decrease runny nose Allergic symptoms symptoms are better We will continue with hydroxyzine to control the allergy and also anxiety Urinary incontinence Complains to have a stress incontinence Leaks urine with coughing or sneezing and has been having recently Urinary incontinence from today Pyridium was given for dysuria Urine examination did not show any infection Urbina will be placed for convenience Catheter was taken out Diarrhea Likely secondary to antibiotic We will get C. difficile toxin-negative Diarrhea is better (2) HTN (hypertension): Plan: Remains on the upper side Continue current medications Blood pressure remains elevated without any symptoms Blood pressure remains on the upper side Her home medications have been restarte Coreg has been increased to 12.5 mg twice daily We will send home with 12.5 mg twice daily He was given Vistaril 25 mg 3 times daily for a few days (3) Community acquired pneumonia: Plan: As above-has been on intravenous ceftriaxone and doxycycline We will continue with overall made to finish the course Finish the course of antibiotic for the next 3 days (4) Gastroenteritis: Plan: Diarrhea symptoms rule out infectious causes that may warrant treatment Having diarrheal episode C. difficile has been negative Stool culture came back positive for e EPEC Oxygen again has been changed to azithromycin No more diarrhea (5) Elevated troponin: Plan: Troponin elevation secondary to illness in the setting of kidney dysfunction Asymptomatic and negative EKG changes ,doubt any ACS Likely secondary to demand ischemia (6) CKD (chronic kidney disease), stage III: Plan: ARF on CKD secondary to illness Advised to drink more fluid and she has been receiving cautious amount of intravenous fluid Creatinine has been improving and it is 1.91 as of 06/21/2022 Her kidney function is normalized (7) Hypothyroidism: Plan: Continue supplement (8) Bilateral leg edema: Plan: Complains to have occasional leg swelling more on the left than the right Has been having recently Likely secondary to diastolic failure from tachycardia History of grade 1 diastolic dysfunction as of echo in May 2021 Plan Other significant medical conditions as below: Hypothyroidism, unknown control Chronic anemia, hemoglobin better than baseline likely secondary to hemoconcentration Anxiety/mood disorder, at baseline Possible functional disability PT OT eval once medically stable DVT prophylaxis. Heparin subcu Full code Patient request for her friend to be given updates regarding her care as needed. Ms. Barbara Varela, contact #[phone]. Likely discharge on Sunday Admission and Anticipated Discharge Date Admission Date: June 20, 2022 Subjective 06/21/2022 The patient was seen and examined in medical telemetry unit She has been feeling much better but complains to have sneezing and nasal drainage since admission Her cough is better and denies any chest pain and her palpitation or shortness of breath at rest No fever and or chills 06/22/2022 The patient was seen and examined in medical telemetry unit She has been feeling worse today with more drowsiness but less shortness of breath She is more bothered with frequent urination without dysuria She also has runny nose which is minimally improved with Benadryl 06/23/2022 The patient was seen and examined in medical telemetry unit She has been very anxious and the blood pressure noted to be very high since this morning She is reassured and blood pressure medications have been updated Has been having diarrhea with excoriation of the bottom Stool will be sent for C. difficile toxin Her breathing is better denies any cough and no shortness of breath at rest 06/24/2022 The patient was seen and examined in medical telemetry unit She has been feeling much better today She has had injection of the left greater trochanteric bursa Denies any significant symptoms 06/25/2022 The patient was seen and examined in medical telemetry unit She has been feeling much better today but the blood pressure remains elevated She will need to have antianxiety medication like Vistaril to control the blood pressure as she insisted Her cough is better and there is no shortness of breath 06/26/2022 The patient was seen and examined in medical telemetry unit She has been feeling much better and is ready to be discharged Blood pressure remains high but at the time of my examination it was systolic 140s She denies any other symptoms and will be discharged home this afternoon Review of Systems Review of Systems: All systems reviewed and are unremarkable except as noted below Physical Exam Physical Exam: Lying in bed, very tired and very very anxious Constitutional: well developed, well nourished, + ill appearing and + obese Eyes: PERRL, conjunctivae normal, anicteric sclerae ENMT: external ear and nose normal, oropharynx normal Neck: trachea midline, no thyromegaly Respiratory: no respiratory distress Auscultation: + diminished lung sounds and + crackles (Minimal left basilar crackles) Cardiovascular: Rate/Rhythm: regular rate and regular rhythm; not tachycardic Heart Sounds: normal S1, normal S2 and + murmur Extremities: + edema (Bilateral breast leg edema, a little worse on the left) Gastrointestinal (Abdomen): Inspection/Auscultation: normal bowel sounds; abdomen not distended Percussion/Palpation: abdomen soft; abdomen nontender Neurologic: normal touch/pain/proprioception and moves all extremities; no focal motor deficits Psychiatric: A+Ox3, euthymic affect Lymphatic: no cervical or axillary lymphadenopathy Results & Data Results & Data Vital Signs (Past 12 Hours) Vital Signs Temp Pulse Pulse Pulse Pulse Pulse Pulse 06/26/22 11:29 109 H 107 H 76 06/26/22 11:12 36.4 C L 83 06/26/22 08:22 93 H 06/26/22 07:27 36.5 C 93 H 06/26/22 06:40 82 06/26/22 03:20 36.9 C 88 88 06/26/22 02:52 36.9 C 88 06/26/22 02:12 Resp Resp Resp Resp BP BP Pulse Ox 06/26/22 11:29 20 18 18 06/26/22 11:12 18 147/82 H 98 06/26/22 08:22 06/26/22 07:27 20 192/93 H 96 06/26/22 06:40 06/26/22 03:20 18 208/95 H 95 06/26/22 02:52 18 208/95 H 95 06/26/22 02:12 Pulse Ox Pulse Ox Pulse Ox O2 Del Method O2 Flow Rate 06/26/22 11:29 95 97 98 06/26/22 11:12 Room Air 06/26/22 08:22 06/26/22 07:27 Room Air 06/26/22 06:40 06/26/22 03:20 Nasal Cannula 3 06/26/22 02:52 Room Air 06/26/22 02:12 Room Air (2) HTN (hypertension) Hypertension type: unspecified Qualified Code(s): I10 - Essential (primary) hypertension (6) CKD (chronic kidney disease), stage III Chronic kidney disease stage 3 subtype: stage 3a (GFR 45-59) Qualified Code(s): N18.31 - Chronic kidney disease, stage 3a
[2022-06-26] MEDS: DICLOFENAC SOD 1% GEL 100 GM TUBE EXT PRN (13:50)
[2022-06-26] MEDS ORDERED: hydrOXYzine HCl 25 MG TAB PO SCH (14:00)
--- NOTE | 2022-06-26 18:31 | Discharge Summary ---
Date of Service June 26, 2022 Admission HPI Per Admitting Provider History obtained from patient and records. 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 Last confinement September 2021 for hypertensive urgency. 3 days history of junky cough symptoms followed by nausea/emesis/watery diarrhea/abdominal pain symptoms. Patient denies aspiration. Possible sick contacts. Patient denies chest pain, SOB, headache. Patient completed COVID-19 vaccination. EMS called to patient's home by patient's friend. Home door had to be broken down by EMS. Patient found to be covered with feces. IV Unasyn administered at the ER. Medical Historyas above Surgical History : Knee surgeries, cholecystectomy, tonsillectomy, hysterectomy Family History : Heart disease, RA Personal/Social history : Non-smoker, occasional EtOH intake, retired [employer] employee Admission Exam Per Admitting Provider Physical Exam: GENERAL: uncomfortable, anxious, obese, unkempt, no respiratory distress SKIN: Pallor, warm HEENT: Pale palpebral conjunctivae, no ptosis, dry buccal mucosa, nasal cannula in place NECK : Supple, short neck, no tenderness CHEST : Decreased breath sounds, no tenderness HEART : RRR, no obvious murmurs ABDOMEN: Some distention, nontender EXTREMITIES : Minimal LE swelling, chronic hip tenderness, no other conspicuous deformities noted NEUROLOGIC : Coherent, no facial asymmetry, mild hearing impairment, gait and stance not assessed Principal Diagnosis Acute hypoxic respiratory failure, community-acquired pneumonia, uncontrolled hypertension, epec gastroenteritis, CKD, anxiety Discharge Exam Lying in bed, very tired and very very anxious Constitutional well developed, well nourished, + ill appearing and + obese Eyes PERRL, conjunctivae normal, anicteric sclerae ENMT external ear and nose normal, oropharynx normal Neck trachea midline, no thyromegaly Respiratory no respiratory distress Auscultation: + diminished lung sounds and + crackles (Minimal left basilar crackles) Cardiovascular Rate/Rhythm: regular rate and regular rhythm; not tachycardic Heart Sounds: normal S1, normal S2 and + murmur Extremities: + edema (Bilateral breast leg edema, a little worse on the left) Gastrointestinal (Abdomen) Inspection/Auscultation: normal bowel sounds; abdomen not distended Percussion/Palpation: abdomen soft; abdomen nontender Neurologic normal touch/pain/proprioception and moves all extremities; no focal motor deficits Psychiatric A+Ox3, euthymic affect Lymphatic no cervical or axillary lymphadenopathy Discharge Data Allergies Allergy/AdvReac Type Severity Reaction Status Date / Time aspirin Allergy Severe ANAPHYLAXIS Verified 06/20/22 19:08 duloxetine [From Cymbalta] Allergy Intermediate Rash Verified 06/20/22 19:08 lisinopril AdvReac Intermediate Cough Verified 06/20/22 19:08 Consultations 06/20/22 20:36 ED Decision to Admit Stat 06/23/22 11:10 Consult Orthopedic Surgery Routine Ordered Studies 06/20/22 17:54 CT abd pelvis wo con Stat Hospital Course (1) Acute hypoxemic respiratory failure: Secondary to complicated pneumonia, community-acquired infection Immunocompromised patient, hx chronic steroid Rx for RA Patient not septic. supplemental O2 Solu-Medrol 1 dose now for bronchopneumonia given hypoxemia Ceftriaxone, Doxycycline had changed to azithromycin Pulmonary consult if without improvement Clinically little better and denies any shortness of breath at rest and no cough and no chest pain Will get chest x-ray PA and lateral view to evaluate pneumonia Chest x-ray showing much improvement of the pneumonia and clinically she is much better We will get PT and OT evaluation prior to discharge on Sunday Respiratory symptoms and has been saturating normally on room air To the steps O2 saturation test was unremarkable and she does not require any oxygen He will be discharged home this afternoon Acute allergy Has been using Flonase as an outpatient Flonase was prescribed and she was given Benadryl as needed to decrease runny nose Allergic symptoms symptoms are better We will continue with hydroxyzine to control the allergy and also anxiety Urinary incontinence Complains to have a stress incontinence Leaks urine with coughing or sneezing and has been having recently Urinary incontinence from today Pyridium was given for dysuria Urine examination did not show any infection U[place]ina will be placed for convenience Catheter was taken out Diarrhea Likely secondary to antibiotic We will get C. difficile toxin-negative Diarrhea is better (2) HTN (hypertension): Remains on the upper side Continue current medications Blood pressure remains elevated without any symptoms Blood pressure remains on the upper side Her home medications have been restarte Coreg has been increased to 12.5 mg twice daily We will send home with 12.5 mg twice daily He was given Vistaril 25 mg 3 times daily for a few days (3) Community acquired pneumonia: As above-has been on intravenous ceftriaxone and doxycycline We will continue with overall made to finish the course Finish the course of antibiotic for the next 3 days (4) Gastroenteritis: Diarrhea symptoms rule out infectious causes that may warrant treatment Having diarrheal episode C. difficile has been negative Stool culture came back positive for e EPEC Oxygen again has been changed to azithromycin No more diarrhea (5) Elevated troponin: Troponin elevation secondary to illness in the setting of kidney dysfunction Asymptomatic and negative EKG changes ,doubt any ACS Likely secondary to demand ischemia (6) CKD (chronic kidney disease), stage III: ARF on CKD secondary to illness Advised to drink more fluid and she has been receiving cautious amount of intravenous fluid Creatinine has been improving and it is 1.91 as of 06/21/2022 Her kidney function is normalized (7) Hypothyroidism: Continue supplement (8) Bilateral leg edema: Complains to have occasional leg swelling more on the left than the right Has been having recently Likely secondary to diastolic failure from tachycardia History of grade 1 diastolic dysfunction as of echo in May 2021 Plan Other significant medical conditions as below: Hypothyroidism, unknown control Chronic anemia, hemoglobin better than baseline likely secondary to hemoconcentration Anxiety/mood disorder, at baseline Possible functional disability PT OT eval once medically stable DVT prophylaxis. Heparin subcu Full code Patient request for her friend to be given updates regarding her care as needed. Ms. Barbara Varela, contact #[phone]. Likely discharge on Sunday Total Time Total Time Spent Total Time Spent (In Minutes): 40 minutes Discharge Plan Discharge Items Patient Disposition: Home - Self-Care Reason For Visit: RESP FAILURE Discharge Diagnosis: Acute hypoxic respiratory failure, community-acquired pneumonia, uncontrolled hypertension, epec gastroenteritis, CKD, anxiety Condition on Discharge: Fair Activity: Resume your previous activity Non-emergency contact: Primary Care Provider Call non-emergency contact if: you have any medication questions and your symptoms worsen Follow-up/Referrals: Kj Minor MD [Primary Care Provider] - (Date & Time 07/03/2022 5:40 PM Provider Kj Minor MD Department Family Medicine [facility] ) Diet: Heart Healthy Addtl Attending Provider Instructions: Please take precautions to avoid falls Take your medications as advised Please keep appointments with your healthcare providers Pending Studies at Discharge: No Stand-Alone Forms: [facility], Smoking Cessation Medications and DC Order Prescriptions: New hydroxyzine HCl 25 mg Tablet 25 mg PO TID 5 Days Qty: 15 0RF cefdinir 300 mg capsule 300 mg PO BID 4 Days Qty: 8 0RF carvedilol 12.5 mg Tablet 12.5 mg PO BID 30 Days Qty: 60 0RF Continued hydrocodone-acetaminophen 5-325 mg tablet 1 tab PO Q8H PRN (Reason: Pain) irbesartan [Avapro] 300 mg tablet 300 mg PO QPM gabapentin 600 mg tablet 600 mg PO TID levothyroxine 75 mcg tablet 75 mcg PO DAILYBB pantoprazole 40 mg tablet,delayed release (DR/EC) 40 mg PO QAM nifedipine 90 mg tablet extended release 24 hr 90 mg PO QAM prednisone 5 mg tablet 5 mg PO DAILY hydralazine 10 mg tablet 10 mg PO DIRECTED PRN (Reason: SBP >180) escitalopram oxalate 10 mg Tablet 10 mg PO QAM Qty: 30 0RF famotidine 10 mg Tablet 10 mg PO HS ropinirole 2 mg tablet 2 mg PO HS Rx Instructions: WITH FOOD magnesium oxide 500 mg Tablet 500 mg PO HS tizanidine 4 mg capsule 4 mg PO HS Pennsaid 2 % Solution In Packet 1 packet TOPICAL BID PRN (Reason: Pain) Discontinued carvedilol 3.125 mg tablet 3.125 mg PO BID Discharge Orders: Discharge Order (Routine); Ordered 06/26/22 Ordered By: Robin Orozco Admission Data Admit Date/Time: 06/20/22 22:03 Attending Provider: Robin Orozco Admit Provider: Naseem Cadena Primary Care Provider: Kj Minor Other Providers: Naseem Cadena ; William Oliver [facility] ; Michoacano Dickens Other Interventions: Discharge Summary Assessment (RN) Last Done: 06/26/22 13:28
== END 2022-06-26 16:00 | disposition home or self-care (01) | DRG 371 ==
LOC: ED 17:29 → 2N 22:03

== ENCOUNTER 2022-10-31 20:47 | Inpatient (IN) ==
--- NOTE | 2022-10-31 21:20 | Emergency Department Note ---
Impression & Plan Acute UTI (urinary tract infection), Acute kidney injury superimposed on chronic kidney disease, Bilateral edema of lower extremity, Non-ST elevation MD (NSTEMI), Generalized weakness ED Provider Note HISTORY OF PRESENT ILLNESS: Patient is a 81-year-old female presenting with lower extremity edema, shortness of breath and diarrhea. Patient reports that her lower legs have been progressively more swollen over the last 2 weeks. She is not having trouble getting around at home. She reportedly is also short of breath with exertion. She is on Lasix and has been for the last few days, but she reports that since she started the Lasix prescribed by her doctor she has been having profuse diarrhea. She denies any fevers. Denies any chest pain. Denies any abdominal pain. EMS who brings the patient in reports that her living conditions are deplorable. ROS: as above PHYSICAL EXAM: Constitutional: Patient appears in no acute distress. HENT: Head: Normocephalic and atraumatic. Eyes: EOMI, PERRL Mouth/Throat: Mucous membranes moist. Neck: Trachea midline. Neck supple. Cardiovascular: RRR, No murmurs, rubs or gallops. Intact distal pulses. Pulmonary/Chest: No respiratory distress. Breath sounds clear and equal bilaterally. No wheezes or rales. Abdominal: Abdomen soft, no tenderness, rebound or guarding. Back: No midline spinal tenderness, no paraspinal tenderness, no CVA tenderness. Musculoskeletal: No tenderness or deformity noted. +2 pitting edema to bilateral lower extremities extending to mid-thigh. Skin: Warm and dry. No rash, erythema, pallor or cyanosis Psychiatric: Appropriate mood and affect for situation. Neurological: Alert and keenly responsive. CN II-XII grossly intact, moving all extremities equally and fully. MDM: - Vitals signs showed hypertension. - History obtained via patient. Patient presents with lower extremity edema, shortness of breath and diarrhea. Patient reports her lower legs have been progressively more swollen over the last 2 weeks. She has been having getting trouble getting around secondary to the swelling and feeling very weak. She reports she also feels short of breath with exertion. She states she has been on Lasix for the last few days but does not know what her doses. Reports has b een having profuse diarrhea over the last few days. Denies any fevers. Denies any abdominal pain. Patient denies any chest pain. - Chronic conditions affecting care: CKD; HTN; HLD; hypothyroidism - Differential diagnoses include, but are not limited to: CHF exacerbation; UTI; pneumonia; ACS; electrolyte abnormality - Order placed for continuous cardiac monitoring. At this time, monitor showed rate of 86 bpm with normal sinus rhythm, per my interpretation. - External medical records reviewed. - EKG reviewed by myself showed normal sinus rhythm. Rate 83 bpm. QTc 430. No acute ischemic changes. - Laboratory workup interpreted by myself showed leukocytosis (WBC 16.39); stable electrolytes; elevated anion gap (13); DENNIS on CKD (Cr 2.95 - baseline around 1.8-2.0); normal BNP; elevated troponin (trop 27.5) - UA showed evidence of infection. Given 1g IV rocephin in ER. - CXR negative for pneumonia, per my interpretation. - Patient given 1L NS in ER. No lasix was given via IV, given patient's profound DENNIS. - Patient given 1g IV tylenol for knee pain. - Discussion was had with criminal justice social worker about patient's case and need for admission - Hospitalist, Dr. Good, consulted for admission - [facility] ASSESSMENT AND PLAN: Diagnosis: UTI; lower extremity edema; generalized weakness; NSTEMI; DENNIS on CKD Plan: admit Past Med/Surg History Medical History Anxiety CKD (chronic kidney disease), stage III Depression Elevated troponin I level Glaucoma Herniated lumbar disc without myelopathy Left central disc herniation at L5-S1 High cholesterol Hypertension Hypertensive emergency Hypothyroidism Lumbar radiculopathy Neuropathy FEET Osteoarthritis Restless leg syndrome Rheumatoid arthritis FOLLOWS DR. TREVINO Rotator cuff tear, left Spinal stenosis, lumbar region with neurogenic claudication Surgical History History of carpal tunnel release RIGHT HAND History of total bilateral knee replacement (TKR) Hx laparoscopic cholecystectomy Hx of arthroscopy RIGHT KNEE (MENISCUS) Hx of hysterectomy Hx of tonsillectomy Family History Mother Family history of reaction to anesthesia SLOW TO AWAKEN Social History (Reviewed 06/23/22 @ 15:35 by MANUELITO Antonio Smoking Status: Never smoker Second Hand Exposure: No; Do You Dip or Chew Tobacco: No; Hx Alcohol Use: Yes Alcohol type: other Hx Substance Use: No Preferred Language: Faroese Communication Ability: Effective Visual Impairment: No Limitations Vice President Underwriting Required: No Beliefs That Will Affect Care: None marital status: Single Current Living Situation: Alone Current Living Situation Comment: needs 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 How many Children do You have: 0 Feels Safe at Home: Yes Assistive Devices: Cane and Walker Allergies Allergies Allergy/AdvReac Type Severity Reaction Status Date / Time aspirin Allergy Severe ANAPHYLAXIS Verified 11/01/22 00:29 duloxetine [From Cymbalta] Allergy Intermediate Rash Verified 11/01/22 00:29 lisinopril AdvReac Intermediate Cough Verified 11/01/22 00:29 Home Meds Home Medications Medication Instructions Recorded Confirmed levothyroxine 75 mcg tablet 75 mcg PO DAILYBB 11/18/20 11/01/22 pantoprazole 40 mg tablet,delayed 40 mg PO QAM 11/18/20 11/01/22 release nifedipine 90 mg tablet,extended 90 mg PO QAM 05/20/21 11/01/22 release 24 hr hydrocodone 5 mg-acetaminophen 325 1 tab PO Q8H PRN Pain 06/01/21 11/01/22 mg tablet irbesartan 300 mg tablet (Avapro) 300 mg PO QPM 06/01/21 11/01/22 hydralazine 10 mg tablet 10 mg PO DIRECTED PRN SBP >180 09/05/21 11/01/22 prednisone 5 mg tablet 5 mg PO DAILY 09/05/21 11/01/22 gabapentin 600 mg tablet 600 mg PO TID 01/25/22 11/01/22 diclofenac sodium 2 % topical 1 packet topical BID PRN Pain 06/20/22 11/01/22 solution in packet (Pennsaid) famotidine 10 mg tablet 10 mg PO HS 06/20/22 11/01/22 magnesium oxide 500 mg tablet 500 mg PO HS 06/20/22 11/01/22 ropinirole 2 mg tablet 2 mg PO HS 06/20/22 11/01/22 tizanidine 4 mg capsule 4 mg PO HS 06/20/22 11/01/22 brimonidine 0.2 %-timolol 0.5 % 1 drp ophthalmic (eye) BID 11/01/22 11/01/22 eye drops (Combigan) carvedilol 3.125 mg tablet 3.125 mg PO AMHS 11/01/22 11/01/22 escitalopram oxalate 20 mg tablet 20 mg PO QAM 11/01/22 11/01/22 furosemide 20 mg tablet 20 mg PO DAILY PRN .edema 11/01/22 11/01/22 hydroxyzine HCl 25 mg tablet 25 mg PO TID 11/01/22 11/01/22 leflunomide 20 mg tablet 20 mg PO QAM 11/01/22 11/01/22 Results & Data (ED) Vital Signs Vital Signs - 24 hr 10/31/22 21:12 10/31/22 21:15 10/31/22 21:15 Temperature 36.7 C Temperature Source Oral Pulse Rate 83 81 Pulse Rate [Finger] Pulse Rate from SpO2 Sensor 86 Respiratory Rate 18 17 Blood Pressure 159/70 H 123/62 Blood Pressure [Right Arm] Blood Pressure Mean 99 91 Blood Pressure Mean [Right Arm] Pulse Oximetry 39 L Oxygen Delivery Method Sepsis Recent Fever Within 48 Hours No Sepsis New/Unexplained Change in Mental Status No Sepsis Action Taken by Nursing No Action Required 10/31/22 21:30 10/31/22 21:30 10/31/22 21:46 Temperature Temperature Source Pulse Rate 82 Pulse Rate [Finger] Pulse Rate from SpO2 Sensor 81 Respiratory Rate 19 Blood Pressure 130/76 131/74 Blood Pressure [Right Arm] Blood Pressure Mean 92 98 Blood Pressure Mean [Right Arm] Pulse Oximetry 95 Oxygen Delivery Method Sepsis Recent Fever Within 48 Hours Sepsis New/Unexplained Change in Mental Status Sepsis Action Taken by Nursing 10/31/22 21:46 10/31/22 22:00 10/31/22 22:00 Temperature Temperature Source Pulse Rate 84 85 Pulse Rate [Finger] Pulse Rate from SpO2 Sensor 84 85 Respiratory Rate 17 17 Blood Pressure 140/85 Blood Pressure [Right Arm] Blood Pressure Mean 107 Blood Pressure Mean [Right Arm] Pulse Oximetry 92 Oxygen Delivery Method Sepsis Recent Fever Within 48 Hours Sepsis New/Unexplained Change in Mental Status Sepsis Action Taken by Nursing 10/31/22 21:15 10/31/22 23:00 Temperature Temperature Source Pulse Rate 81 Pulse Rate [Finger] 86 Pulse Rate from SpO2 Sensor Respiratory Rate 18 Blood Pressure Blood Pressure [Right Arm] 150/71 H Blood Pressure Mean Blood Pressure Mean [Right Arm] 97 Pulse Oximetry 98 Oxygen Delivery Method Room Air Sepsis Recent Fever Within 48 Hours Sepsis New/Unexplained Change in Mental Status Sepsis Action Taken by Nursing Laboratory Data 10/31/22 21:11 10/31/22 21:11 Lab Results 10/31/22 10/31/22 10/31/22 Range/Units 21:11 21:11 21:11 WBC 16.39 H (4.8-10.8) K/ul RBC 2.94 L (4.20-5.40) M/uL Hgb 9.0 L (12.0-16.0) g/dl Hct 28.3 L (37.0-47.0) % MCV 96.3 (80.0-100.0) fL MCH 30.6 (25.0-34.0) pg MCHC 31.8 L (32.0-36.0) g/dL RDW Std Deviation 53.3 H (36.4-46.3) fL RDW Coeff of Mario 15.2 H (11.5-14.5) % Plt Count 316 (130-400) K/uL MPV 9.3 L (9.4-12.4) fL Immature Gran % (Auto) 0.8 % Neut % (Auto) 81.8 % Lymph % (Auto) 5.7 % Creek % (Auto) 10.2 % Eos % (Auto) 1.0 % Baso % (Auto) 0.5 % Neut # (Auto) 13.40 H (1.40-6.50) K/uL Lymph # (Auto) 0.94 L (1.2-3.4) K/uL Creek # (Auto) 1.67 H (0.11-0.59) K/uL Eos # (Auto) 0.16 (0-0.50) K/uL Baso # (Auto) 0.09 (0-0.2) K/uL Immature Gran # (Auto) 0.13 (0.01-0.20) K/uL PT 10.6 (9.0-12.0) Seconds INR 1.0 (0.9-1.1) Sodium 139 (136-145) mmol/L Potassium 4.6 (3.5-5.1) mmol/L Chloride 101 (98-107) mmol/L Carbon Dioxide 25 (21-32) mmol/L Anion Gap 13 H (3-11) BUN 68 H (6-23) mg/dl Creatinine 2.95 H (0.6-1.2) mg/dl Est Cr Clr Drug Dosing 15.4 ml/min Est GFR ( Amer) 16.8 ml/min Est GFR (Non-Af Amer) 14.5 ml/min BUN/Creatinine Ratio 23.1 H (10-20) Glucose 104 H (70-99(Fasting)) mg/dl Calcium 9.0 (8.6-10.3) mg/dl Total Bilirubin 0.9 (0.2-1.0) mg/dl AST 29 (13-39) U/L ALT 33 (7-52) U/L Alkaline Phosphatase 100 (34-104) U/L Troponin I High Sens 27.5 H (0-14) pg/ml B-Natriuretic Peptide (0-100) pg/ml Total Protein 6.8 (6.0-8.3) gm/dl Albumin 3.6 (3.4-5.0) gm/dl Globulin 3.2 (2.5-4.0) gm/dl Albumin/Globulin Ratio 1.1 (0.9-2) Urine Color Urine Appearance (Clear) Urine pH (4.5-7.5) Ur Specific Ackley (1.000-1.030) Urine Protein (Negative) Urine Glucose (UA) (Negative) Urine Ketones (Negative) Urine Blood (Negative) Urine Nitrite (Negative) Urine Bilirubin (Negative) Urine Urobilinogen (Negative) Ur Leukocyte Esterase (Negative) Urine WBC (Auto) (0-5) /hpf Urine RBC (Auto) (0-4) /hpf U Hyaline Cast (Auto) (0-5) /lpf U Epithel Cells (Auto) (0-5) /lpf Urine Bacteria (Auto) (Negative) 10/31/22 10/31/22 Range/Units 21:11 22:08 WBC (4.8-10.8) K/ul RBC (4.20-5.40) M/uL Hgb (12.0-16.0) g/dl Hct (37.0-47.0) % MCV (80.0-100.0) fL MCH (25.0-34.0) pg MCHC (32.0-36.0) g/dL RDW Std Deviation (36.4-46.3) fL RDW Coeff of Mario (11.5-14.5) % Plt Count (130-400) K/uL MPV (9.4-12.4) fL Immature Gran % (Auto) % Neut % (Auto) % Lymph % (Auto) % Creek % (Auto) % Eos % (Auto) % Baso % (Auto) % Neut # (Auto) (1.40-6.50) K/uL Lymph # (Auto) (1.2-3.4) K/uL Creek # (Auto) (0.11-0.59) K/uL Eos # (Auto) (0-0.50) K/uL Baso # (Auto) (0-0.2) K/uL Immature Gran # (Auto) (0.01-0.20) K/uL PT (9.0-12.0) Seconds INR (0.9-1.1) Sodium (136-145) mmol/L Potassium (3.5-5.1) mmol/L Chloride (98-107) mmol/L Carbon Dioxide (21-32) mmol/L Anion Gap (3-11) BUN (6-23) mg/dl Creatinine (0.6-1.2) mg/dl Est Cr Clr Drug Dosing ml/min Est GFR ( Amer) ml/min Est GFR (Non-Af Amer) ml/min BUN/Creatinine Ratio (10-20) Glucose (70-99(Fasting)) mg/dl Calcium (8.6-10.3) mg/dl Total Bilirubin (0.2-1.0) mg/dl AST (13-39) U/L ALT (7-52) U/L Alkaline Phosphatase (34-104) U/L Troponin I High Sens (0-14) pg/ml B-Natriuretic Peptide 95 (0-100) pg/ml Total Protein (6.0-8.3) gm/dl Albumin (3.4-5.0) gm/dl Globulin (2.5-4.0) gm/dl Albumin/Globulin Ratio (0.9-2) Urine Color Dark Yellow Urine Appearance Turbid A (Clear) Urine pH 8.5 H (4.5-7.5) Ur Specific Ackley 1.009 (1.000-1.030) Urine Protein 1+ H (Negative) Urine Glucose (UA) Negative (Negative) Urine Ketones Negative (Negative) Urine Blood Trace H (Negative) Urine Nitrite Negative (Negative) Urine Bilirubin Negative (Negative) Urine Urobilinogen Negative (Negative) Ur Leukocyte Esterase 3+ H (Negative) Urine WBC (Auto) >30 H (0-5) /hpf Urine RBC (Auto) 0-4 (0-4) /hpf U Hyaline Cast (Auto) 0 (0-5) /lpf U Epithel Cells (Auto) >30 H (0-5) /lpf Urine Bacteria (Auto) 4+ H (Negative) Administered Medications Discontinued Medications Acetaminophen (Acetaminophen 500 Mg Tab) 1,000 mg PO NOW STA Stop: 10/31/22 23:12 Last Admin: 10/31/22 23:27 Dose: 1,000 mg Documented By: JOHN Sodium Chloride (Nss 1000ml) 1,000 mls @ 999 mls/hr IV .Q1H1M ONE Stop: 10/31/22 23:04 Last Infusion: 11/01/22 00:10 Dose: 0 mls/hr Documented By: Admin: 10/31/22 22:12 Dose: 999 mls/hr Documented By: TARIK Ceftriaxone Sodium 1,000 mg/ (Dextrose) 50 mls @ 100 mls/hr IV NOW STA Stop: 10/31/22 23:55 Last Infusion: 11/01/22 00:34 Dose: 0 mls/hr Documented By: Admin: 10/31/22 23:52 Dose: 100 mls/hr Documented By: JOHN Discharge Plan Visit Data Chief Complaint: Illness Stated Complaint: SHORT OF BREATH, ABDOM. PAIN, EDEMA, DIARRHEA ED Provider: Avelina Cordova Discharge Problem: Acute UTI (urinary tract infection), Acute kidney injury superimposed on chronic kidney disease, Bilateral edema of lower extremity, Non-ST elevation MD (NSTEMI), Generalized weakness Forms Stand Alone Forms: [facility] Prescriptions Prescriptions: No Action hydrocodone-acetaminophen 5-325 mg tablet 1 tab PO Q8H PRN (Reason: Pain) irbesartan [Avapro] 300 mg tablet 300 mg PO QPM gabapentin 600 mg tablet 600 mg PO TID levothyroxine 75 mcg tablet 75 mcg PO DAILYBB pantoprazole 40 mg tablet,delayed release (DR/EC) 40 mg PO QAM nifedipine 90 mg tablet extended release 24 hr 90 mg PO QAM prednisone 5 mg tablet 5 mg PO DAILY hydralazine 10 mg tablet 10 mg PO DIRECTED PRN (Reason: SBP >180) famotidine 10 mg Tablet 10 mg PO HS ropinirole 2 mg tablet 2 mg PO HS Rx Instructions: WITH FOOD magnesium oxide 500 mg Tablet 500 mg PO HS tizanidine 4 mg capsule 4 mg PO HS Pennsaid 2 % Solution In Packet 1 packet TOPICAL BID PRN (Reason: Pain) leflunomide 20 mg tablet 20 mg PO QAM carvedilol 3.125 mg tablet 3.125 mg PO AMHS hydroxyzine HCl 25 mg tablet 25 mg PO TID Rx Instructions: Am, noon, hs furosemide 20 mg tablet 20 mg PO DAILY PRN (Reason: .edema) escitalopram oxalate 20 mg tablet 20 mg PO QAM brimonidine-timolol [Combigan] 0.2-0.5 % Drops 1 drp OPHTHALMIC (EYE) BID Referrals Referrals: Kj Minor MD [Primary Care Provider] -
[2022-10-31 21:52] LABS: Basophils # (auto) 0.09 K/uL (0-0.2); Basophils % (auto) 0.5 %; Eosinophils # (auto) 0.16 K/uL (0-0.50); Hematocrit (blood only) 28.3 % (37.0-47.0); Immature Granulocytes # (auto) 0.13 K/uL (0.01-0.20); Immature Granulocytes % (auto) 0.8 %; Lymphocytes # (auto) 0.94 K/uL (1.2-3.4); Lymphocytes % (auto) 5.7 %; Mean Corpuscular Hemoglobin 30.6 pg (25.0-34.0); Mean Corpuscular Hgb Conc 31.8 g/dL (32.0-36.0); Mean Corpuscular Volume 96.3 fL (80.0-100.0); Mean Platelet Volume 9.3 fL (9.4-12.4); Monocytes # (auto) 1.67 K/uL (0.11-0.59); Monocytes % (auto) 10.2 %; Neutrophils % (auto) 81.8 %; Platelet Count 316 K/uL (130-400); RDW Coefficient of Variation 15.2 % (11.5-14.5); RDW Standard Deviation 53.3 fL (36.4-46.3); Red Blood Count 2.94 M/uL (4.20-5.40); White Blood Count 16.39 K/ul (4.8-10.8)
[2022-10-31 22:01] LABS: Albumin Globulin Ratio 1.1 (0.9-2); Albumin Level 3.6 gm/dl (3.4-5.0); BUN Creatinine Ratio 23.1 (10-20); Bilirubin,Total 0.9 mg/dl (0.2-1.0); Creatinine Clr Calc Pharmacy 15.4 ml/min; Est GFR (African American) 16.8 ml/min; Est GFR (Non-African American) 14.5 ml/min; Globulin 3.2 gm/dl (2.5-4.0); Potassium 4.6 mmol/L (3.5-5.1); Total Protein 6.8 gm/dl (6.0-8.3)
[2022-10-31] MEDS ORDERED: SODIUM CHLORIDE 0.9% 1,000 ML IV ONE (22:04)
[2022-10-31 22:08] LABS: Troponin I High Sensitivity 27.5 pg/ml (0-14)
[2022-10-31 22:13] LABS: Prothrombin Time 10.6 Seconds (9.0-12.0)
[2022-10-31 23:03] LABS: Appearance Urine Turbid (Clear); Bacteria Urine Automated 4+ (Negative); Bilirubin Urine Negative (Negative); Blood Urine Trace (Negative); Cast Urine Automated 0 /lpf (0-5); Color Urine Dark Yellow; Epithelial Cell Urine Auto >30 /lpf (0-5); Glucose Urine UA Negative (Negative); Ketones Urine Negative (Negative); Leukocyte Esterase Urine 3+ (Negative); Nitrite Urine Negative (Negative); RBC Urine Automated 0-4 /hpf (0-4); Specific Gravity Urine 1.009 (1.000-1.030); Urobilinogen Urine Negative (Negative); WBC Urine Automated >30 /hpf (0-5); pH Urine 8.5 (4.5-7.5)
[2022-10-31] MEDS ORDERED: ACETAMINOPHEN 500 MG TAB PO STA (23:11)
[2022-10-31 23:12] LABS: Protein Urine 1+ (Negative)
[2022-10-31] MEDS ORDERED: cefTRIAXone SODIUM 1,000 MG in DEXTROSE 5% AD-VAN 50 ML IV STA (23:26)
--- NOTE | 2022-11-01 01:22 | History & Physical Report ---
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, hypertension, Raynaud's phenomenon, chronic kidney disease stage III, hypertension, GERD, osteoarthritis, restless leg syndrome, sensorineural hearing loss bilateral, primary open-angle glaucoma, anemia of chronic disease, hereditary and idiopathic peripheral neuropathy, rheumatoid arthritis, depression, insomnia comes because of weakness and found to DENNIS and UTI DENNIS on chronic kidney stage III Presented with creatinine of 2.9 Baseline creatinine around 1.5 Recently was taking Lasix which will be held Gentle fluids Consult nephrology as patient also has lower extremity edema Monitor the labs UTI Rocephin We will follow cultures Weakness Not able to get from the chair for last 2 days Mostly from above We will follow CPK levels PT OT when stable Mild elevated troponin Mostly from DENNIS We will follow serial enzymes Lower extremity edema We will follow the Dopplers We will consider an echocardiogram Hypertension On Coreg, irbesartan, nifedipine We will monitor the blood pressure Anemia of chronic disease Hemoglobin 9 seems her baseline GERD on Protonix and Pepcid Rheumatoid arthritis We will hold leflunomide for now Continue prednisone Depression On Lexapro Restless leg syndrome On ropinirole Left knee pain X-ray DVT prophylaxis Heparin subcu for now Disposition med/telemetry Full code (2) Bilateral edema of lower extremity: (3) Acute UTI (urinary tract infection): History of Present Illness Chief Complaint: Weakness, DENNIS and UTI Primary Care Provider: Kj Minor MD 81-year-old female with past medical significant for hypothyroidism, hyperparathyroidism, allergic rhinitis, 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 Patient states increased lower extremity edema and her PCP has given Lasix which she is taking for last 1 week. Says her right lower extremity swelling is improved but left lower extremity still swollen. Since starting with Lasix she is having diarrhea. She also has a lot of arthritis and gets shots to her hips and knees very rheumatology. Lately her left knee and hip are bothering. Last 2 days she was sitting in her chair and she was not able to get up. Finally today her friend who is a nurse called her and advised her to call EMS which she was anyway thinking about it. Denies any fevers. Denies any nausea or vomiting. Has lower abdominal pain. Has burning micturition. Denies any headache. No earache or runny nose or sore throat. Patient was in deep sleep and has to be woken up and it took some time to her answer the questions. Seems her house was in deplorable condition and she was covered in urine and feces when she was brought in as per ER Past medical history as mentioned above Past surgical history bilateral knee arthroplasty, laparoscopic cholecystectomy, tonsillectomy, total hysterectomy Social history no smoking. Alcohol 1-2 drinks a week. No drug use Family history father has arthritis, DE. Mother has DE. Aunt has rheumatoid arthritis Allergies Allergy/AdvReac Type Severity Reaction Status Date / Time aspirin Allergy Severe ANAPHYLAXIS Verified 11/01/22 00:29 duloxetine [From Cymbalta] Allergy Intermediate Rash Verified 11/01/22 00:29 lisinopril AdvReac Intermediate Cough Verified 11/01/22 00:29 Home Medications Medication Instructions Recorded Confirmed Type levothyroxine 75 mcg tablet 75 mcg PO DAILYBB 11/18/20 11/01/22 History pantoprazole 40 mg tablet,delayed 40 mg PO QAM 11/18/20 11/01/22 History release nifedipine 90 mg tablet,extended 90 mg PO QAM 05/20/21 11/01/22 History release 24 hr hydrocodone 5 mg-acetaminophen 325 1 tab PO Q8H PRN Pain 06/01/21 11/01/22 History mg tablet irbesartan 300 mg tablet (Avapro) 300 mg PO QPM 06/01/21 11/01/22 History hydralazine 10 mg tablet 10 mg PO DIRECTED PRN SBP >180 09/05/21 11/01/22 History prednisone 5 mg tablet 5 mg PO DAILY 09/05/21 11/01/22 History gabapentin 600 mg tablet 600 mg PO TID 01/25/22 11/01/22 History diclofenac sodium 2 % topical 1 packet topical BID PRN Pain 06/20/22 11/01/22 History solution in packet (Pennsaid) famotidine 10 mg tablet 10 mg PO HS 06/20/22 11/01/22 History magnesium oxide 500 mg tablet 500 mg PO HS 06/20/22 11/01/22 History ropinirole 2 mg tablet 2 mg PO HS 06/20/22 11/01/22 History tizanidine 4 mg capsule 4 mg PO HS 06/20/22 11/01/22 History brimonidine 0.2 %-timolol 0.5 % 1 drp ophthalmic (eye) BID 11/01/22 11/01/22 History eye drops (Combigan) carvedilol 3.125 mg tablet 3.125 mg PO AMHS 11/01/22 11/01/22 History escitalopram oxalate 20 mg tablet 20 mg PO QAM 11/01/22 11/01/22 History furosemide 20 mg tablet 20 mg PO DAILY PRN .edema 11/01/22 11/01/22 History hydroxyzine HCl 25 mg tablet 25 mg PO TID 11/01/22 11/01/22 History leflunomide 20 mg tablet 20 mg PO QAM 11/01/22 11/01/22 History Past Med/Surg History Medical History Anxiety CKD (chronic kidney disease), stage III Depression Elevated troponin I level Glaucoma Herniated lumbar disc without myelopathy Left central disc herniation at L5-S1 High cholesterol Hypertension Hypertensive emergency Hypothyroidism Lumbar radiculopathy Neuropathy FEET Osteoarthritis Restless leg syndrome Rheumatoid arthritis FOLLOWS DR. TREVINO Rotator cuff tear, left Spinal stenosis, lumbar region with neurogenic claudication Surgical History History of carpal tunnel release RIGHT HAND History of total bilateral knee replacement (TKR) Hx laparoscopic cholecystectomy Hx of arthroscopy RIGHT KNEE (MENISCUS) Hx of hysterectomy Hx of tonsillectomy Family History Mother Family history of reaction to anesthesia SLOW TO AWAKEN Social History Smoking Status: Never smoker Second Hand Exposure: No; Do You Dip or Chew Tobacco: No; Hx Alcohol Use: Yes Alcohol type: other Hx Substance Use: No Preferred Language: Irish Communication Ability: Effective Visual Impairment: No Limitations Sewing Machine Repairer Required: No Beliefs That Will Affect Care: None marital status: Single Current Living Situation: Alone Current Living Situation Comment: needs 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 How many Children do You have: 0 Feels Safe at Home: Yes Assistive Devices: Cane and Walker Review of Systems Review of Systems: All systems reviewed & are unremarkable except as noted in HPI & below Physical Exam Physical Exam: General- Not in distress Head- atraumatic Eyes- PERRL. ENT- oropharynx clear Neck- supple, no JVD, Lungs- clear to auscultation no wheezing or crackles Heart- regular rhythm; no murmur, no gallop. Abdomen- normal bowel sounds, soft, nontender, no distension Extremities- b/l lower extremity edema present. left leg is somewhat erythematous Neuro- alert, oriented x 3; PERRL, no facial palsy; no dysarthria; obeys commands, moves extremities. Skin- warm & dry Results & Data Results & Data Vital Signs (Past 12 Hours) Vital Signs Temp Pulse Pulse Resp BP BP Pulse Ox 10/31/22 23:00 86 18 150/71 H 98 10/31/22 21:15 81 10/31/22 22:00 85 17 10/31/22 22:00 140/85 10/31/22 21:46 84 17 92 10/31/22 21:46 131/74 10/31/22 21:30 82 19 95 10/31/22 21:30 130/76 10/31/22 21:15 81 17 39 L 10/31/22 21:15 123/62 10/31/22 21:12 36.7 C 83 18 159/70 H O2 Del Method 10/31/22 23:00 Room Air 10/31/22 21:15 10/31/22 22:00 10/31/22 22:00 10/31/22 21:46 10/31/22 21:46 10/31/22 21:30 10/31/22 21:30 10/31/22 21:15 10/31/22 21:15 10/31/22 21:12 Diagnostic Findings Laboratory Results WBC 16.39 K/ul (4.8-10.8) H 10/31/22 21:11 RBC 2.94 M/uL (4.20-5.40) L 10/31/22 21:11 Hgb 9.0 g/dl (12.0-16.0) L 10/31/22 21:11 Hct 28.3 % (37.0-47.0) L 10/31/22 21:11 MCV 96.3 fL (80.0-100.0) 10/31/22 21:11 MCH 30.6 pg (25.0-34.0) 10/31/22 21:11 MCHC 31.8 g/dL (32.0-36.0) L 10/31/22 21:11 RDW Std Deviation 53.3 fL (36.4-46.3) H 10/31/22 21:11 RDW Coeff of Mario 15.2 % (11.5-14.5) H 10/31/22 21:11 Plt Count 316 K/uL (130-400) 10/31/22 21:11 MPV 9.3 fL (9.4-12.4) L 10/31/22 21:11 Immature Gran % (Auto) 0.8 % 10/31/22 21:11 Neut % (Auto) 81.8 % 10/31/22 21:11 Lymph % (Auto) 5.7 % 10/31/22 21:11 [place] % (Auto) 10.2 % 10/31/22 21:11 Eos % (Auto) 1.0 % 10/31/22 21:11 Baso % (Auto) 0.5 % 10/31/22 21:11 Neut # (Auto) 13.40 K/uL (1.40-6.50) H 10/31/22 21:11 Lymph # (Auto) 0.94 K/uL (1.2-3.4) L 10/31/22 21:11 [place] # (Auto) 1.67 K/uL (0.11-0.59) H 10/31/22 21:11 Eos # (Auto) 0.16 K/uL (0-0.50) 10/31/22 21:11 Baso # (Auto) 0.09 K/uL (0-0.2) 10/31/22 21:11 Immature Gran # (Auto) 0.13 K/uL (0.01-0.20) 10/31/22 21:11 PT 10.6 Seconds (9.0-12.0) 10/31/22 21:11 INR 1.0 (0.9-1.1) 10/31/22 21:11 Sodium 139 mmol/L (136-145) 10/31/22 21:11 Potassium 4.6 mmol/L (3.5-5.1) 10/31/22 21:11 Chloride 101 mmol/L (98-107) 10/31/22 21:11 Carbon Dioxide 25 mmol/L (21-32) 10/31/22 21:11 Anion Gap 13 (3-11) H 10/31/22 21:11 BUN 68 mg/dl (6-23) H 10/31/22 21:11 Creatinine 2.95 mg/dl (0.6-1.2) H 10/31/22 21:11 Est Cr Clr Drug Dosing 15.4 ml/min 10/31/22 21:11 Est GFR ( Amer) 16.8 ml/min 10/31/22 21:11 Est GFR (Non-Af Amer) 14.5 ml/min 10/31/22 21:11 BUN/Creatinine Ratio 23.1 (10-20) H 10/31/22 21:11 Glucose 104 mg/dl (70-99(Fasting)) H 10/31/22 21:11 Calcium 9.0 mg/dl (8.6-10.3) 10/31/22 21:11 Total Bilirubin 0.9 mg/dl (0.2-1.0) 10/31/22 21:11 AST 29 U/L (13-39) 10/31/22 21:11 ALT 33 U/L (7-52) 10/31/22 21:11 Alkaline Phosphatase 100 U/L (34-104) 10/31/22 21:11 Troponin I High Sens 27.5 pg/ml (0-14) H 10/31/22 21:11 B-Natriuretic Peptide 95 pg/ml (0-100) 10/31/22 21:11 Total Protein 6.8 gm/dl (6.0-8.3) 10/31/22 21:11 Albumin 3.6 gm/dl (3.4-5.0) 10/31/22 21:11 Globulin 3.2 gm/dl (2.5-4.0) 10/31/22 21:11 Albumin/Globulin Ratio 1.1 (0.9-2) 10/31/22 21:11 Urine Color Dark Yellow 10/31/22 22:08 Urine Appearance Turbid (Clear) A 10/31/22 22:08 Urine pH 8.5 (4.5-7.5) H 10/31/22 22:08 Ur Specific [place] 1.009 (1.000-1.030) 10/31/22 22:08 Urine Protein 1+ (Negative) H 10/31/22 22:08 Urine Glucose (UA) Negative (Negative) 10/31/22 22:08 Urine Ketones Negative (Negative) 10/31/22 22:08 Urine Blood Trace (Negative) H 10/31/22 22:08 Urine Nitrite Negative (Negative) 10/31/22 22:08 Urine Bilirubin Negative (Negative) 10/31/22 22:08 Urine Urobilinogen Negative (Negative) 10/31/22 22:08 Ur Leukocyte Esterase 3+ (Negative) H 10/31/22 22:08 Urine WBC (Auto) >30 /hpf (0-5) H 10/31/22 22:08 Urine RBC (Auto) 0-4 /hpf (0-4) 10/31/22 22:08 U Hyaline Cast (Auto) 0 /lpf (0-5) 10/31/22 22:08 U Epithel Cells (Auto) >30 /lpf (0-5) H 10/31/22 22:08 Urine Bacteria (Auto) 4+ (Negative) H 10/31/22 22:08 ECG Additional Comments: ECG normal sinus rhythm rate of [address] abnormalities no significant change was found Code Status & VTE Plan VTE Prophylaxis Plan VTE Prophylaxis will be ordered: Yes
[2022-11-01] MEDS ORDERED: NITROGLYCERIN SL 0.4 MG/TAB TAB SL PRN (02:40)
[2022-11-01] MEDS ORDERED: hydrALAZINE 10 MG TAB PO PRN (02:40)
[2022-11-01] MEDS: HYDROCODONE/ACETAMOPHEN 5/325MG TAB PO PRN (05:08)
[2022-11-01 05:10] LABS: Basophils # (auto) 0.05 K/uL (0-0.2); Basophils % (auto) 0.4 %; Eosinophils # (auto) 0.11 K/uL (0-0.50); Eosinophils % (auto) 0.8 %; Hemoglobin 8.1 g/dl (12.0-16.0); Immature Granulocytes # (auto) 0.09 K/uL (0.01-0.20); Immature Granulocytes % (auto) 0.6 %; Lymphocytes # (auto) 1.09 K/uL (1.2-3.4); Lymphocytes % (auto) 7.7 %; Mean Corpuscular Hemoglobin 29.6 pg (25.0-34.0); Mean Corpuscular Hgb Conc 31.2 g/dL (32.0-36.0); Mean Corpuscular Volume 94.9 fL (80.0-100.0); Monocytes # (auto) 1.35 K/uL (0.11-0.59); Monocytes % (auto) 9.5 %; Platelet Count 270 K/uL (130-400); RDW Coefficient of Variation 15.3 % (11.5-14.5); RDW Standard Deviation 52.7 fL (36.4-46.3); Red Blood Count 2.74 M/uL (4.20-5.40); White Blood Count 14.19 K/ul (4.8-10.8)
[2022-11-01] MEDS: D5W AND NSS 1,000 ML IV SCH ×2 (05:25→18:07)
[2022-11-01 05:26] LABS: BUN Creatinine Ratio 25.1 (10-20); Calcium 8.3 mg/dl (8.6-10.3); Creatinine Clr Calc Pharmacy 16.3 ml/min; Est GFR (African American) 17.9 ml/min; Est GFR (Non-African American) 15.5 ml/min; Magnesium 2.9 mg/dl (1.7-2.4); Potassium 4.1 mmol/L (3.5-5.1)
[2022-11-01] MEDS ORDERED: HEPARIN SOD 5,000 UNIT/0.5 ML VIAL SQ SCH (06:00)
[2022-11-01] MEDS: LEVOTHYROXINE SODIUM 75 MCG TABLET PO SCH (06:16)
--- NOTE | 2022-11-01 06:44 | XRay Report ---
XR chest 1V portable HISTORY: 81 years-old Female shortness of breath acute shortness of breath COMPARISON: 06/23/2022 TECHNIQUE: AP view of the chest FINDINGS: Cardiac silhouette is enlarged. Stable right hemidiaphragmatic elevation. Mild chronic interstitial c oarsening. Mild subsegmental linear bibasilar densities. No pneumothorax, pleural effusion or overt p ulmonary edema. Degenerative changes of the shoulders and spine. Unchanged appearance of the distal r ight clavicle. IMPRESSION: 1. Cardiomegaly with chronic interstitial coarsening. 2. Mild subsegmental bibasilar atelectasis. ACT 112: Negative or not required by law. The above report was generated using voice recognition software. It may contain grammatical, syntax o r spelling errors. Electronically signed by: Nic Winters M.D. 11/01/2022 6:42 AM
--- NOTE | 2022-11-01 06:49 | Ultrasound Report ---
BILATERAL LOWER EXTREMITY VENOUS DOPPLER HISTORY: Acute pain and swelling of the lower legs lower extremity edema dvt? COMPARISON STUDY: 03/24/2017 FINDINGS: Subcutaneous limits evaluation of the lower leg deep veins. RIGHT: Occlusive thrombus extends from the mid to distal superficial femoral vein into the popliteal and pos terior tibial veins. The anterior tibial and peroneal veins appear patent. LEFT: No DVT. IMPRESSION: 1. Right lower extremity DVT, likely acute. 2. No DVT of the left lower extremity. ACT 112: Negative or not required by law. Electronically signed by: Nic Winters M.D. 11/01/2022 6:47 AM
[2022-11-01] MEDS ORDERED: ESCITALOPRAM OXALATE 20 MG TAB PO SCH (09:00)
[2022-11-01] MEDS ORDERED: PANTOprazole 40 MG TAB PO SCH (09:00)
[2022-11-01 09:06] LABS: Estimated Average Glucose 97 mg/dl
[2022-11-01] MEDS: predniSONE 5 MG TAB PO SCH (09:31)
[2022-11-01] MEDS: carvediloL 3.125 MG TAB PO SCH ×2 (09:31→21:47)
[2022-11-01] MEDS: NIFEdipine EXTENDED REL 30 MG TABCR PO SCH (09:31)
[2022-11-01] MEDS: GABAPENTIN 600 MG TAB PO SCH ×3 (09:31→21:47)
[2022-11-01] MEDS: hydrOXYzine HCl 25 MG TAB PO SCH ×3 (09:31→21:46)
[2022-11-01 13:00] LABS: Astrovirus PCR Not Detected (NotDetected); Campylobacter PCR Not Detected (NotDetected); Cryptosporidium PCR Not Detected (NotDetected); Cyclospora cayetanensis PCR Not Detected (NotDetected); Entamoeba histolytica PCR Not Detected (NotDetected); Enteroaggregative E.coli(EAEC) Not Detected (NotDetected); Enteropathogenic E.coli (EPEC) DETECTED (NotDetected); Enterotoxigenic E.coli (ETEC) Not Detected (NotDetected); Giardia lamblia PCR Not Detected (NotDetected); Norovirus GI/GII PCR Not Detected (NotDetected); Plesiomonas shigelloides PCR Not Detected (NotDetected); Rotavirus A PCR Not Detected (NotDetected); Salmonella PCR Not Detected (NotDetected); Sapovirus PCR Not Detected (NotDetected); Shiga-like Toxin E.coli (STEC) Not Detected (NotDetected); Shigella/Enteroinvasive E.coli Not Detected (NotDetected); Vibrio cholerae PCR Not Detected (NotDetected); Vibrio species PCR Not Detected (NotDetected); Yersinia enterocolitica PCR Not Detected (NotDetected)
--- NOTE | 2022-11-01 13:15 | Nuclear Medicine Report ---
NM pul perfusion CLINICAL HISTORY: ac dvt, r/o pe Technique: Perfusion imaging was performed in multiple projections after the intravenous injection of 5.3 mCi of Tc-99m labeled macroaggregated albumin (MAA). Comparison: None available at the time of this dictation. FINDINGS/IMPRESSION: Homogeneous perfusion was seen bilaterally. Low probability of pulmonary emboli sm. ACT 112: Negative or not required by law. Electronically signed by: Gui Coy M.D. 11/01/2022 1:13 PM
[2022-11-01 13:17] LABS: Adenovirus F 40/41 PCR Not Detected (NotDetected)
--- NOTE | 2022-11-01 13:27 | Nephrology Consultation ---
Date of Consultation November 01, 2022 Assessment & Plan (1) Acute kidney injury superimposed on CKD: stage 1 nonoliguric DENNIS on CKD 3. 1.6 baseline creatinine. presents w/ creatinine 3 on 10/31, slightly improved today at 2.8. This in setting of diarrheal illness (? from lasix versus e coli), acute DVT, concern for anemia >> w/ changes in all 3 blood lines some of this may be dilutional. ? significance if any of rash medial RLE. >continue D5NS current rate > recommend renal u/s given DVT -wrote to hold losartan -ok w/ other antihypertensives; no lasix -daily bmp >>consider lowering gabapentin dose/frequency given Dennis >note no leflunomide on med list > ? nonformulary (2) Acute UTI (urinary tract infection): f/u pending culture; on ceftriaxone (3) Bilateral edema of lower extremity: not severe; would not use lasix at this time; conservative measures (4) Anemia: History of Present Illness Reason for Consultation: DENNIS, lower extremity edema Requesting Physician: Dr Good Attending Physician: Helen Barbour MD History of Present Illness 81-year-old female whom I am asked to evaluate for acute kidney injury and lower extremity edema was admitted overnight for same in the setting of UTI after presenting for evaluation of generalized weakness. Past medical history includes nonproteinuric stage IIIb chronic kidney disease, longstanding hypertension with a August 2021 admission here for hypertensive urgency as well as strong situational hypertension component, rheumatoid arthritis on chronic prednisone and leflunomide, hypothyroid, idiopathic peripheral neuropathy; also with in spring 2022 left hip bursitis and right elbow osteoarthritis. She was admitted here 06/2022 for acute hypoxic respiratory failure, community acquired pneumonia, uncontrolled HTN. Pt w/ hx of changing meds on her own w/o advice from medical team. She was recently started on Lasix as an outpatient for about a week prior to presentation with improvement in the lower extremity edema on the right but not the left. Complains of diarrhea with this therapy. Also complains of dysuria. Also c/o L knee pain and [place], LE edema. Per EMS report, the patient was sitting in a recliner chair for an unknown amount of time with diarrhea and reported that her house was not in livable condition and was covered with cat Feces. Her baseline creatinine is 1.6 as of June as an outpatient; her presenting creatinine was 3, improved to 2.8 this am. Admission w/u revealed stool assay + for EPEC and blood. Also found to have RLE DVT and inflamed urine. she is currently receiving D5NS at 75 mL/hr after a 1L NS bolus. Also on ceftriaxone. Her OP coreg, losartan, nifedipine were continued; though she's not had the losartan yet. heparin gtt is on hold d/t + blood in stool and drop in hgb. she denies chest pain, n/v, sob, abd pain, further diarrhea. no cough orthopnea; no voiding sx. no f/c. she tells me that she can't get to OP appts d/t neuropathy limiting mobility and no transport. Allergies Allergy/AdvReac Type Severity Reaction Status Date / Time aspirin Allergy Severe ANAPHYLAXIS Verified 11/01/22 00:29 duloxetine [From Cymbalta] Allergy Intermediate Rash Verified 11/01/22 00:29 lisinopril AdvReac Intermediate Cough Verified 11/01/22 00:29 Home Medications Medication Instructions Recorded Confirmed Type levothyroxine 75 mcg tablet 75 mcg PO DAILYBB 11/18/20 11/01/22 History pantoprazole 40 mg tablet,delayed 40 mg PO QAM 11/18/20 11/01/22 History release nifedipine 90 mg tablet,extended 90 mg PO QAM 05/20/21 11/01/22 History release 24 hr hydrocodone 5 mg-acetaminophen 325 1 tab PO Q8H PRN Pain 06/01/21 11/01/22 History mg tablet irbesartan 300 mg tablet (Avapro) 300 mg PO QPM 06/01/21 11/01/22 History hydralazine 10 mg tablet 10 mg PO DIRECTED PRN SBP >180 09/05/21 11/01/22 History prednisone 5 mg tablet 5 mg PO DAILY 09/05/21 11/01/22 History gabapentin 600 mg tablet 600 mg PO TID 01/25/22 11/01/22 History diclofenac sodium 2 % topical 1 packet topical BID PRN Pain 06/20/22 11/01/22 History solution in packet (Pennsaid) famotidine 10 mg tablet 10 mg PO HS 06/20/22 11/01/22 History magnesium oxide 500 mg tablet 500 mg PO HS 06/20/22 11/01/22 History ropinirole 2 mg tablet 2 mg PO HS 06/20/22 11/01/22 History tizanidine 4 mg capsule 4 mg PO HS 06/20/22 11/01/22 History brimonidine 0.2 %-timolol 0.5 % 1 drp ophthalmic (eye) BID 11/01/22 11/01/22 History eye drops (Combigan) carvedilol 3.125 mg tablet 3.125 mg PO AMHS 11/01/22 11/01/22 History escitalopram oxalate 20 mg tablet 20 mg PO QAM 11/01/22 11/01/22 History furosemide 20 mg tablet 20 mg PO DAILY PRN .edema 11/01/22 11/01/22 History hydroxyzine HCl 25 mg tablet 25 mg PO TID 11/01/22 11/01/22 History leflunomide 20 mg tablet 20 mg PO QAM 11/01/22 11/01/22 History Patient History Medical History Anxiety CKD (chronic kidney disease), stage III Depression Elevated troponin I level Glaucoma Herniated lumbar disc without myelopathy Left central disc herniation at L5-S1 High cholesterol Hypertension Hypertensive emergency Hypothyroidism Lumbar radiculopathy Neuropathy FEET Osteoarthritis Restless leg syndrome Rheumatoid arthritis FOLLOWS DR. TREVINO Rotator cuff tear, left Spinal stenosis, lumbar region with neurogenic claudication Surgical History History of carpal tunnel release RIGHT HAND History of total bilateral knee replacement (TKR) Hx laparoscopic cholecystectomy Hx of arthroscopy RIGHT KNEE (MENISCUS) Hx of hysterectomy Hx of tonsillectomy Family History Mother Family history of reaction to anesthesia SLOW TO AWAKEN Social History Smoking Status: Never smoker Second Hand Exposure: No; Do You Dip or Chew Tobacco: No; Hx Alcohol Use: No Hx Substance Use: No Preferred Language: Colombian Communication Ability: Effective Visual Impairment: No Limitations Menagerie Superintendent Required: No Beliefs That Will Affect Care: None marital status: Single Current Living Situation: Alone Current Living Situation Comment: needs 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 How many Children do You have: 0 Feels Safe at Home: Yes Assistive Devices: Cane and Walker Review of Systems Review of Systems: All systems reviewed & are unremarkable except as noted in HPI & below Physical Exam Constitutional: well developed, well nourished, + frail appearing, + disheveled (belongings smell of cat urine) and cooperative; no acute distress Eyes: EOM intact bilaterally ENMT: Ears: no external ear abnormality Nose: no external nose abnormality Mouth: + dry oral mucous membranes Neck: no nuchal rigidity Respiratory: normal respiratory effort Auscultation: + diminished lung s ounds Cardiovascular: Rate/Rhythm: regular rate and regular rhythm Extremities: + edema (2+ pedal1+ LLE none R) Gastrointestinal (Abdomen): Inspection/Auscultation: normal bowel sounds Percussion/Palpation: abdomen soft; abdomen nontender Musculoskeletal: Extremities: strength 5/5 throughout Skin: no rashes, warm and dry ?a few palpable patches/purpurra L medial calf Neurologic: norris, fluent speech, no tremor Psychiatric: Orientation: alert, oriented to person and oriented to place Speech: normal rate/rhythm/volume of speech Results & Data Vital Signs (Past 12 Hours) Vital Signs Temp Pulse Resp BP Pulse Ox Pulse Ox O2 Del Method 11/01/22 07:30 36.5 C 74 16 141/62 H 95 Room Air 11/01/22 07:32 95 11/01/22 06:00 77 18 128/64 100 Room Air 11/01/22 02:54 74 20 119/62 97 Nasal Cannula O2 Del Method O2 Flow Rate 11/01/22 07:30 11/01/22 07:32 Room Air 11/01/22 06:00 11/01/22 02:54 2 Laboratory Results 11/01/22 04:52 11/01/22 04:52 UA > dark turbid urine pH 8.5, trace blood 1+ protein, 3+ LE, > 30 WBC and epi, 4+ bacteria Stool + EPEC and blood Diagnostic Findings VQ low probability BL venous dopplers >> RLE DVT CXR Cardiac silhouette is enlarged. Stable right hemidiaphragmatic elevation. Mild chronic interstitial coarsening. Mild subsegmental linear bibasilar densities. No pneumothorax, pleural effusion or overt pulmonary edema. Degenerative changes of the shoulders and spine. Unchanged appearance of the distal right clavicle. IMPRESSION: 1. Cardiomegaly with chronic interstitial coarsening. 2. Mild subsegmental bibasilar atelectasis.
[2022-11-01] MEDS: PANTOprazole 40 MG in SYRINGE 0 ML IV SCH ×2 (14:34→21:45)
[2022-11-01 14:44] LABS: Hematocrit (blood only) 23.9 % (37.0-47.0); Hemoglobin 7.5 g/dl (12.0-16.0)
--- NOTE | 2022-11-01 16:04 | Communication Note ---
Date of Service: November 01, 2022 Patient was seen and examined at bedside. 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 Patient denies being on any blood thinner in the past. Patient presented with BLE swelling. US Doppler positive for RLE DVT. VQ scan low probability of PE. Patient will need anticoagulation but complicated by her FOBT positive. Patient unsure about the color of her stool, per RN no black/blood in the stool today. Discussed with GI, okay to continue heparin drip for her DVT treatment unless melena or bakari blood in stool. Hb further dropping, will hold heparin transiently, await GI eval. transfusing 1 unit blood. HnH in the night and in AM. Monitor stool color. GI Bleed/Acute on chronic anemia 2/2 blood loss: Baseline hemoglobin appears around 9-10. Admitting hemoglobin of 9, dropped to 8.1 next day. FOBT was positive, taken prior to resuming heparin drip due to aforementioned hemoglobin drop noted. Trend H&H every 12 hours or as needed. Transfuse PRBC for hemoglobin less than 8 or symptomatic anemia. Hb 7.5 later in the evening, transfusing 1 unit now. Hold prednisone. N.p.o., GI consulted, IV PPI twice daily, avoid NSAIDs. Continue IV fluids. Await further GI recommendation. Acute kidney injury superimposed on chronic kidney disease stage III: Baseline creatinine around 1.5, admitting creatinine of 2.9. Patient getting IV fluids. Lasix and losartan on hold. Patient does have BLE edema. Nephrology consulted, await recommendation. Labs in AM. BLE Edema: Patient with complaint of increased lower extremity edema, recently prescribed Lasix from PCP office for last 1 week RESOURCE MANAGEMENT SPECIALIST, reported somewhat improving lower extremity swelling [RLE greater than LLE]. BNP 93. 3/ ECHO w/ EF of 65-70%, grade I diastolic dysfunction. Will monitor. CXR w/ no congestion. ? renal vs cardiac, will get echo. Acute UTI: Follow cultures, continue with Rocephin 11/01 Weakness: Patient reports increasing weakness for last 2 days RESOURCE MANAGEMENT SPECIALIST -she was sitting in her chair and was not able to get up. She was covered in urine and feces when she was brought to the ED. CPK level minimally elevated, no rhabdomyolysis. PT/OT. Will likely need rehab. Diarrhea: for about a week RESOURCE MANAGEMENT SPECIALIST, stool PCR neg, except for EPEC. supportive Mx. Mild elevated troponin: Likely from her acute illness and DENNIS over CKD. Patient with no chest pain. EKG with no acute ST or T changes. Other chronic medical conditions: Continue with/resume home meds as and when able. Hypertension: On Coreg, irbesartan, nifedipine. We will monitor the blood pressure Anemia of chronic disease: Hemoglobin 9 seems her baseline. See above. GERD on Protonix and Pepcid Rheumatoid arthritis: We will hold leflunomide and prednisone for now. She has multiple arthritic joints and gets shots at her hips and knees at rheumatology office. Lately her left knee and hip are bothering. f/u rheum on DC. Depression: On Lexapro Restless leg syndrome: On ropinirole DVT prophylaxis: On hep drip due dvt - on hold due to drop in Hb. Disposition med/telemetry On examination: Patient on room air, NAD, lower extremity with 2+ pitting edema, bibasal rales For detailed information on the patient, refer to today's H&P note.
[2022-11-01] MEDS ORDERED: SODIUM CHLORIDE 0.9% 250 ML IV PRN (16:35)
[2022-11-01 17:42] LABS: Ferritin 164.4 ng/ml (8-388)
--- NOTE | 2022-11-01 17:44 | Electrocardiogram Report ---
Test Reason : Blood Pressure : / mmHG Vent. Rate : 083 BPM Atrial Rate : 083 BPM P-R Int : 124 ms QRS Dur : 084 ms QT Int : 366 ms P-R-T Axes : 029 004 080 degrees QTc Int : 430 ms Poor data quality, interpretation may be adversely affected Normal sinus rhythm Nonspecific ST and T wave abnormality Abnormal ECG When compared with ECG of 21-JUN-2022 02:45, No significant change was found Confirmed by Dave Lema ([id number]) on 11/01/2022 5:44:07 PM Referred By: REFERRED SELF Confirmed By:Dave Lema
[2022-11-01 17:49] LABS: Folate (Folic Acid),Ser orPlas 9.29 ng/ml (>5.38)
[2022-11-01 17:50] LABS: Vitamin B12 > 1500 pg/ml (180-914)
[2022-11-01] MEDS ORDERED: LOSARTAN POTASSIUM 50 MG TAB PO SCH (21:00)
[2022-11-01] MEDS: COMBIGAN~ORDER AWAITING ACTION SCH (21:38)
[2022-11-01] MEDS: Heparin IV Adult Wt-Based Low-Dose *NO* Bolus Protocol IV SCH ×4 (21:39→21:42)
[2022-11-01] MEDS: HEPARIN SODIUM/DEXTROSE 25,000 UNITS/500 ML BAG IV SCH (21:42)
[2022-11-01] MEDS: MAGNESIUM OXIDE 400 MG TAB PO SCH (21:48)
[2022-11-01] MEDS: FAMOTIDINE 10 MG TABLET PO SCH (21:48)
[2022-11-01] MEDS: rOPINIRole HCL 2 MG TABLET PO SCH (21:48)
[2022-11-01] MEDS: ESCITALOPRAM OXALATE 20 MG TAB PO SCH (21:49)
[2022-11-01] MEDS: tiZANidine HCL 4 MG TABLET PO SCH (21:49)
[2022-11-01] MEDS: cefTRIAXone SODIUM 2,000 MG in DEXTROSE 5% 50 ML IV SCH (22:00)
[2022-11-02] MEDS: LEVOTHYROXINE SODIUM 75 MCG TABLET PO SCH (06:10)
[2022-11-02 08:52] LABS: Hematocrit (blood only) 26.4 % (37.0-47.0); Hemoglobin 8.5 g/dl (12.0-16.0); Mean Corpuscular Hemoglobin 30.1 pg (25.0-34.0); Mean Corpuscular Hgb Conc 32.2 g/dL (32.0-36.0); Mean Corpuscular Volume 93.6 fL (80.0-100.0); Mean Platelet Volume 9.3 fL (9.4-12.4); Platelet Count 256 K/uL (130-400); RDW Coefficient of Variation 14.9 % (11.5-14.5); RDW Standard Deviation 50.6 fL (36.4-46.3); Red Blood Count 2.82 M/uL (4.20-5.40); White Blood Count 14.02 K/ul (4.8-10.8)
[2022-11-02] MEDS: NIFEdipine EXTENDED REL 30 MG TABCR PO SCH (09:11)
[2022-11-02 09:12] LABS: BUN Creatinine Ratio 21.1 (10-20); Creatinine Clr Calc Pharmacy 17.8 ml/min; Est GFR (African American) 19.9 ml/min; Est GFR (Non-African American) 17.2 ml/min; Magnesium 2.7 mg/dl (1.7-2.4); Phosphorus 4.3 mg/dl (2.5-4.9); Potassium 3.8 mmol/L (3.5-5.1)
[2022-11-02] MEDS: GABAPENTIN 600 MG TAB PO SCH ×2 (09:12→13:12)
[2022-11-02] MEDS: hydrOXYzine HCl 25 MG TAB PO SCH ×4 (09:12→21:37)
[2022-11-02] MEDS: carvediloL 3.125 MG TAB PO SCH ×2 (09:12→20:25)
[2022-11-02] MEDS: PANTOprazole 40 MG in SYRINGE 0 ML IV SCH ×2 (09:12→20:30)
[2022-11-02] MEDS: COMBIGAN~ORDER AWAITING ACTION SCH ×3 (09:33→18:39)
[2022-11-02] MEDS: FOLIC ACID 1 MG TAB PO SCH (10:09)
[2022-11-02 12:24] LABS: Basophils # (auto) 0.08 K/uL (0.00-0.20); Basophils % (auto) 0.5 %; Eosinophils # (auto) 0.33 K/uL (0.00-0.50); Eosinophils % (auto) 2.2 %; Hematocrit (blood only) 28.2 % (37.0-47.0); Hemoglobin 9.1 g/dl (12.0-16.0); Immature Granulocytes # (auto) 0.08 K/uL (0.01-0.20); Immature Granulocytes % (auto) 0.5 %; Lymphocytes # (auto) 0.82 K/uL (1.20-3.40); Lymphocytes % (auto) 5.5 %; Mean Corpuscular Hemoglobin 30.6 pg (25.0-34.0); Mean Corpuscular Hgb Conc 32.3 g/dL (32.0-36.0); Mean Corpuscular Volume 94.9 fL (80.0-100.0); Monocytes # (auto) 1.33 K/uL (0.11-0.59); Neutrophils # (auto) 12.15 K/uL (1.40-6.50); Neutrophils % (auto) 82.3 %; Platelet Count 264 K/uL (130-400); RDW Coefficient of Variation 14.9 % (11.5-14.5); RDW Standard Deviation 51.7 fL (36.4-46.3); Red Blood Count 2.97 M/uL (4.20-5.40); White Blood Count 14.79 K/ul (4.8-10.8)
--- NOTE | 2022-11-02 12:26 | Gastrointestinal Consultation ---
Date of Consultation November 02, 2022 Assessment & Plan (1) Acute kidney injury superimposed on chronic kidney disease: (2) Bilateral edema of lower extremity: (3) DVT (deep venous thrombosis): (4) Anemia: (5) Occult blood positive stool: Patient is a 81 years old female currently admitted with DENNIS, bilateral lower extremity edema found to have right lower extremity DVT. Noted to be anemic with heme positive stools but no gross GI bleeding including no hematochezia, or melena. Was having loose stools, which tested positive for Ecoli but stools were positive for this too back in 06/2022. So unclear if active infection or not. - Monitor blood ct and transfuse prn - PPI IV BID coverage - Nephrology following, appreciate recs - Symptomatic management otherwise - Would not hold DVT therapy - In light of no active signs/gross GI bleeding and pt's frailty w multiple medical comorbidities, we will defer inpt endoscopic evaluation. She is agreeable to follow up in GI clinic after her DC to discuss further about options to undergo EGD and colonoscopy to r/o sources of GI bleeding such as PUD, AVMs, malignancy, IBD - Pls recall GI prn Supervising Physician Co-Signing Physician Notes I have personally seen and examined the patient with FRANCINE Butts. Her note reflects my exam and findings. I agree with her impression and plan. Patient can follow up in GI clinic as an out patient to discuss need for endoscopic evaluation. Shmuel Barrera M.D. History of Present Illness Reason for Consultation: Heme positive stools Requesting Physician: Dr. Helen Barbour Attending Physician: Dr. Shmuel Barrera History of Present Illness Pt is a 81 yo female w multiple medical conditions as noted below who presented with bilateral lower extremity edema for the past week. She was given Lasix by her PCP and states that the right lower extremity swelling is improved but not the left lower extremity. She also notes that she started having loose stools after starting Lasix associated with lower abdominal cramping. She denies any dark tarry stools or rectal bleeding. Denies any fevers, chills, abdominal pain, nausea or vomiting. Upon evaluation during her admission she was found to have right lower extremity DVT. PF scan showed low probability for PE. She is also anemic with hemoglobin around 7, given 1 unit PRBC transfusion with good response and blood count. Her baseline hemoglobin is around 9-10. It was noted that she has positive Hemoccult stools. Stool EPEC positive noted on 06/2022 labs and this admission. She has never had EGD or colonoscopy before. Denies a ny family history of colorectal cancer or IBD. Allergies Allergy/AdvReac Type Severity Reaction Status Date / Time aspirin Allergy Severe ANAPHYLAXIS Verified 11/01/22 00:29 duloxetine [From Cymbalta] Allergy Intermediate Rash Verified 11/01/22 00:29 lisinopril AdvReac Intermediate Cough Verified 11/01/22 00:29 Home Medications Medication Instructions Recorded Confirmed Type levothyroxine 75 mcg tablet 75 mcg PO DAILYBB 11/18/20 11/01/22 History pantoprazole 40 mg tablet,delayed 40 mg PO QAM 11/18/20 11/01/22 History release nifedipine 90 mg tablet,extended 90 mg PO QAM 05/20/21 11/01/22 History release 24 hr hydrocodone 5 mg-acetaminophen 325 1 tab PO Q8H PRN Pain 06/01/21 11/01/22 History mg tablet irbesartan 300 mg tablet (Avapro) 300 mg PO QPM 06/01/21 11/01/22 History hydralazine 10 mg tablet 10 mg PO DIRECTED PRN SBP >180 09/05/21 11/01/22 History prednisone 5 mg tablet 5 mg PO DAILY 09/05/21 11/01/22 History gabapentin 600 mg tablet 600 mg PO TID 01/25/22 11/01/22 History diclofenac sodium 2 % topical 1 packet topical BID PRN Pain 06/20/22 11/01/22 History solution in packet (Pennsaid) famotidine 10 mg tablet 10 mg PO HS 06/20/22 11/01/22 History magnesium oxide 500 mg tablet 500 mg PO HS 06/20/22 11/01/22 History ropinirole 2 mg tablet 2 mg PO HS 06/20/22 11/01/22 History tizanidine 4 mg capsule 4 mg PO HS 06/20/22 11/01/22 History brimonidine 0.2 %-timolol 0.5 % 1 drp ophthalmic (eye) BID 11/01/22 11/01/22 History eye drops (Combigan) carvedilol 3.125 mg tablet 3.125 mg PO AMHS 11/01/22 11/01/22 History escitalopram oxalate 20 mg tablet 20 mg PO QAM 11/01/22 11/01/22 History furosemide 20 mg tablet 20 mg PO DAILY PRN .edema 11/01/22 11/01/22 History hydroxyzine HCl 25 mg tablet 25 mg PO TID 11/01/22 11/01/22 History leflunomide 20 mg tablet 20 mg PO QAM 11/01/22 11/01/22 History Patient History Medical History Anxiety CKD (chronic kidney disease), stage III Depression Elevated troponin I level Glaucoma Herniated lumbar disc without myelopathy Left central disc herniation at L5-S1 High cholesterol Hypertension Hypertensive emergency Hypothyroidism Lumbar radiculopathy Neuropathy FEET Osteoarthritis Restless leg syndrome Rheumatoid arthritis FOLLOWS DR. TREVINO Rotator cuff tear, left Spinal stenosis, lumbar region with neurogenic claudication Surgical History History of carpal tunnel release RIGHT HAND History of total bilateral knee replacement (TKR) Hx laparoscopic cholecystectomy Hx of arthroscopy RIGHT KNEE (MENISCUS) Hx of hysterectomy Hx of tonsillectomy Family History Mother Family history of reaction to anesthesia SLOW TO AWAKEN Social History Smoking Status: Never smoker Second Hand Exposure: No; Do You Dip or Chew Tobacco: No; Hx Alcohol Use: No Hx Substance Use: No Preferred Language: Maltese Communication Ability: Effective Visual Impairment: No Limitations Documentation Consultant Required: No Beliefs That Will Affect Care: None marital status: Single Current Living Situation: Alone Current Living Situation Comment: needs 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 How many Children do You have: 0 Feels Safe at Home: Yes Assistive Devices: Cane and Walker Review of Systems Review of Systems: All systems reviewed & are unremarkable except as noted in HPI & below Physical Exam Constitutional: + frail appearing, well groomed, cooperative and comfortable Eyes: PERRL, conjunctivae normal, anicteric sclerae ENMT: external ear and nose normal, oropharynx normal Respiratory: normal respiratory effort, lungs clear to auscultation Cardiovascular: RRR, no murmur, no edema Gastrointestinal (Abdomen): normal bowel sounds, soft, nontender, no hepatosplenomegaly Skin: no rashes, warm and dry no jaundice Psychiatric: A+Ox3, euthymic affect Lymphatic: + lymphedema (Bilateral lower extremity edema) Results & Data Vital Signs (Past 12 Hours) Vital Signs Temp Pulse Pulse Resp BP Pulse Ox O2 Del Method 11/02/22 12:05 36.7 C 74 20 129/76 95 Room Air 11/02/22 08:00 76 11/02/22 08:27 36.7 C 80 20 145/79 H 95 Room Air 11/02/22 04:25 36.7 C 73 18 111/49 L 92 Room Air
[2022-11-02 12:30] LABS: Partial Thromboplastin Ratio 0.8; Partial Thromboplastin Time 22.4 Seconds (21.0-31.0); Prothrombin Time 10.9 Seconds (9.0-12.0)
[2022-11-02] MEDS: HEPARIN SODIUM/DEXTROSE 25,000 UNITS/500 ML BAG IV SCH (13:11)
[2022-11-02] MEDS: D5W AND NSS 1,000 ML IV SCH (13:27)
--- NOTE | 2022-11-02 16:45 | Hospitalist Progress Note ---
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 Patient denies being on any blood thinner in the past. Patient presented with BLE swelling. US Doppler positive for RLE DVT. VQ scan low probability of PE. Patient will need anticoagulation but complicated by her FOBT positive. Per RN no black/blood in the stool. Discussed with GI, okay to continue heparin drip for her DVT treatment. Closely monitor HnH. HnH in the night and in AM. Monitor stool color. GI Bleed/Acute on chronic anemia 2/2 blood loss:Baseline hemoglobin appears around 9-10. Admitting hemoglobin of 9, dropped to 8.1 next day. FOBT was positive, taken prior to resuming heparin drip due to aforementioned hemoglobin drop noted. Trend H&H every 12 hours or as needed. Transfuse PRBC for hemoglobin less than 8 or symptomatic anemia. s/p 1 Unit PRBC. Hold prednisone. N.p.o., GI consulted, IV PPI twice daily, avoid NSAIDs. Continue IV fluids. f/u GI as OP for scope eval. Iron profile w/ low iron/folate & b12 wnl. s/p 1 unit prbc, if not further need for blood will transfuse iv iron before discharge. Acute kidney injury superimposed on chronic kidney disease stage III:Baseline creatinine around 1.5, admitting creatinine of 2.9. Patient getting IV fluids. Lasix and losartan on hold/gabapentin dose decreased. Patient does have BLE edema. Nephrology consulted, appreciate recommendation. Labs in AM. BLE Edema: Patient with complaint of increased lower extremity edema, recently prescribed Lasix from PCP office for last 1 week MEDICAL EDUCATION COORDINATOR, reported somewhat improving lower extremity swelling [RLE greater than LLE]. BNP 93. 3/ ECHO w/ EF of 65-70%, grade I diastolic dysfunction. Will monitor. CXR w/ no congestion. ? renal vs cardiac, will get echo. Acute UTI: Follow cultures - GNB, continue with Rocephin 11/01 Weakness:Patient reports increasing weakness for last 2 days MEDICAL EDUCATION COORDINATOR -she was sitting in her chair and was not able to get up. She was covered in urine and feces when she was brought to the ED. CPK level minimally elevated, no rhabdomyolysis. PT/OT. Will likely need rehab. Diarrhea: for about a week MEDICAL EDUCATION COORDINATOR, stool PCR neg, except for EPEC. supportive Mx. Mild elevated troponin:Likely from her acute illness and DENNIS over CKD. Patient with no chest pain. EKG with no acute ST or T changes. Other chronic medical conditions:Continue with/resume home meds as and when able. Hypertension: On Coreg, irbesartan, nifedipine. We will monitor the blood pressure Anemia of chronic disease: Hemoglobin 9 seems her baseline. See above. GERD on Protonix and Pepcid Rheumatoid arthritis: We will hold leflunomide and prednisone for now. She has multiple arthritic joints and gets shots at her hips and knees at rheumatology office. Lately her left knee and hip are bothering.f/u rheum on DC. Depression: On Lexapro Restless leg syndrome: On ropinirole DVT prophylaxis: On hep drip due to dvt Disposition med/telemetry Admission and Anticipated Discharge Date Admission Date: November 01, 2022 Subjective Patient seen and examined at bedside, sitting up in chair, on room air, NAD. Patient denies any new acute event overnight, per RN patient is eating okay, no blood or black stool, patient has small bowel. Patient denies any fever/headache/dizziness/chest pain. Patient denies any SI/HI. Reports generalized chronic body/joint aches. Physical Exam Physical Exam: GENERAL: Alert and oriented x3. NAD, on RA. Appears ill/weak/frail HEENT: No pallor, no icterus. Pupils equal, round and reactive to light. Oral mucosa moist. NECK: No JVD, no neck masses. HEART: S1 and S2 heard. Regular rate and rhythm. No murmur, no gallop. RESPIRATORY SYSTEM: Normal AP diameter. No accessory muscle use. No wheezing, no crackles. ABDOMEN: Soft, bowel sounds present, nontender, no distention. CENTRAL NERVOUS SYSTEM: No facial droop. Speech is clear. Obeys simple commands. Moves extremities. EXTREMITIES: 1+ edema, no erythema seen. Results & Data Results & Data Vital Signs (Past 12 Hours) Vital Signs Temp Pulse Pulse Resp BP Pulse Ox O2 Del Method 11/02/22 15:30 92 H 11/02/22 15:29 36.6 C 64 20 147/71 H 95 Room Air 11/02/22 12:05 36.7 C 74 20 129/76 95 Room Air 11/02/22 08:00 76 11/02/22 08:27 36.7 C 80 20 145/79 H 95 Room Air
--- NOTE | 2022-11-02 18:02 | Nephrology Progress Note ---
Date of Service November 02, 2022 Assessment & Plan (1) Acute kidney injury superimposed on CKD: Plan: stage 1 nonoliguric DENNIS on CKD 3. 1.6 baseline creatinine. presents w/ creatinine 3 on 10/31, further slight improvement today at 2.6. This in setting of diarrheal illness (? from lasix versus e coli), acute DVT, concern for anemia >> w/ changes in all 3 blood lines some of this may be dilutional. ? significance if any of rash medial RLE. for OP GI f/u, consideration at that time of scope >>>>changed IVF to 1/2 NS w/ 20 mEq L potassium at 100 ml/hr > may need renal u/s if improvement stalls -wrote to hold losartan -ok w/ other antihypertensives; no lasix -daily bmp >>consider lowering gabapentin dose/frequency given Dennis >note no leflunomide on med list > ? nonformulary (2) Acute UTI (urinary tract infection): Plan: f/u pending culture w/ GNR on ceftriaxone (3) Bilateral edema of lower extremity: Plan: not severe; would not use lasix at this time; conservative measures (4) Anemia: Admission and Anticipated Discharge Date Admission Date: November 01, 2022 Subjective no interval events. ongoing leg pain. jan espino BM this am. no n/v; no voiding c/o Review of Systems Review of Systems: All systems reviewed & are unremarkable except as noted in Subjective Physical Exam Constitutional: well developed, well nourished, + frail appearing and cooperative; no acute distress Eyes: EOM intact bilaterally ENMT: Ears: no external ear abnormality Nose: no external nose abnormality Mouth: + dry oral mucous membranes Neck: no nuchal rigidity Respiratory: normal respiratory effort Auscultation: + diminished lung sounds Cardiovascular: Rate/Rhythm: regular rate and regular rhythm Extremities: + edema (2+ pedal1+ LLE none R) Gastrointestinal (Abdomen): Inspection/Auscultation: normal bowel sounds Percussion/Palpation: abdomen soft; abdomen nontender Musculoskeletal: Extremities: strength 5/5 throughout Skin: no rashes, warm and dry Psychiatric: Orientation: alert, oriented to person and oriented to place Speech: normal rate/rhythm/volume of speech Results & Data Vital Signs (Past 12 Hours) Vital Signs Temp Pulse Pulse Resp BP Pulse Ox O2 Del Method 11/02/22 15:30 92 H 11/02/22 15:29 36.6 C 64 20 147/71 H 95 Room Air 11/02/22 12:05 36.7 C 74 20 129/76 95 Room Air 11/02/22 08:00 76 11/02/22 08:27 36.7 C 80 20 145/79 H 95 Room Air Laboratory Results 11/02/22 12:01 11/02/22 08:12
[2022-11-02] MEDS: POTASSIUM CHLORIDE 20 MEQ in SODIUM CHLORIDE 0.45 % 1,000 ML IV SCH (18:41)
[2022-11-02 19:44] LABS: Partial Thromboplastin Time 27.6 Seconds (21.0-31.0)
[2022-11-02] MEDS ORDERED: HEPARIN SOD (PORCINE) 1000 UNIT/ML IV ONE (19:56)
[2022-11-02] MEDS: cefTRIAXone SODIUM 2,000 MG in DEXTROSE 5% 50 ML IV SCH (20:29)
[2022-11-02] MEDS: rOPINIRole HCL 2 MG TABLET PO SCH ×2 (20:30→21:37)
[2022-11-02] MEDS: ESCITALOPRAM OXALATE 20 MG TAB PO SCH ×2 (20:30→21:37)
[2022-11-02] MEDS: GABAPENTIN 300 MG CAP PO SCH ×2 (20:30→21:37)
[2022-11-02] MEDS: MAGNESIUM OXIDE 400 MG TAB PO SCH ×2 (20:30→21:37)
[2022-11-02] MEDS: FAMOTIDINE 10 MG TABLET PO SCH ×2 (20:30→21:37)
[2022-11-02] MEDS: tiZANidine HCL 4 MG TABLET PO SCH ×2 (20:31→21:37)
[2022-11-02] MEDS: Heparin IV Adult Wt-Based Low-Dose *NO* Bolus Protocol IV SCH (20:43)
[2022-11-02 22:52] LABS: Hemoglobin 7.8 g/dl (12.0-16.0)
[2022-11-03] MEDS: COMBIGAN~ORDER AWAITING ACTION SCH ×3 (00:08→17:11)
[2022-11-03 03:46] LABS: Partial Thromboplastin Ratio 1.9
[2022-11-03 03:51] LABS: Partial Thromboplastin Time 53.9 Seconds (21.0-31.0)
[2022-11-03] MEDS: LEVOTHYROXINE SODIUM 75 MCG TABLET PO SCH (05:33)
[2022-11-03] MEDS: POTASSIUM CHLORIDE 20 MEQ in SODIUM CHLORIDE 0.45 % 1,000 ML IV SCH (05:33)
[2022-11-03 06:25] LABS: Hematocrit (blood only) 26.3 % (37.0-47.0); Hemoglobin 8.3 g/dl (12.0-16.0); Mean Corpuscular Hemoglobin 29.9 pg (25.0-34.0); Mean Corpuscular Hgb Conc 31.6 g/dL (32.0-36.0); Mean Corpuscular Volume 94.6 fL (80.0-100.0); Mean Platelet Volume 9.2 fL (9.4-12.4); Platelet Count 264 K/uL (130-400); RDW Coefficient of Variation 14.9 % (11.5-14.5); RDW Standard Deviation 51.8 fL (36.4-46.3); Red Blood Count 2.78 M/uL (4.20-5.40); White Blood Count 11.48 K/ul (4.8-10.8)
[2022-11-03 06:43] LABS: BUN Creatinine Ratio 21.1 (10-20); Calcium 7.8 mg/dl (8.6-10.3); Creatinine Clr Calc Pharmacy 19.5 ml/min; Est GFR (African American) 21.9 ml/min; Est GFR (Non-African American) 18.9 ml/min; Magnesium 2.6 mg/dl (1.7-2.4); Partial Thromboplastin Ratio 1.9; Potassium 4.1 mmol/L (3.5-5.1)
[2022-11-03 06:48] LABS: Partial Thromboplastin Time 54.9 Seconds (21.0-31.0)
[2022-11-03] MEDS: GABAPENTIN 300 MG CAP PO SCH ×3 (08:53→20:51)
[2022-11-03] MEDS: NIFEdipine EXTENDED REL 30 MG TABCR PO SCH (08:54)
[2022-11-03] MEDS: carvediloL 3.125 MG TAB PO SCH ×2 (08:54→20:52)
[2022-11-03] MEDS: FOLIC ACID 1 MG TAB PO SCH (08:54)
[2022-11-03] MEDS: PANTOprazole 40 MG in SYRINGE 0 ML IV SCH ×2 (08:54→20:51)
[2022-11-03] MEDS: hydrOXYzine HCl 25 MG TAB PO SCH ×3 (08:57→20:51)
[2022-11-03] MEDS: HEPARIN SODIUM/DEXTROSE 25,000 UNITS/500 ML BAG IV SCH (13:40)
--- NOTE | 2022-11-03 14:44 | Hospitalist Progress Note ---
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 Patient denies being on any blood thinner in the past. Patient presented with BLE swelling. US Doppler positive for RLE DVT. VQ scan low probability of PE. Patient will need anticoagulation but complicated by her FOBT positive. Per RN no black/blood in the stool. Discussed with GI 11/02, okay to continue heparin drip for her DVT treatment. Closely monitor HnH. HnH in AM. Monitor stool color. GI Bleed/Acute on chronic anemia 2/2 blood loss:Baseline hemoglobin appears around 9-10. Admitting hemoglobin of 9, dropped to 8.1 next day. FOBT was positive, taken prior to resuming heparin drip due to aforementioned hemoglobin drop noted. Trend H&H every 12 hours or as needed. Transfuse PRBC for hemoglobin less than 8 or symptomatic anemia. s/p 1 Unit PRBC. Hold prednisone. N.p.o., GI consulted, IV PPI twice daily, avoid NSAIDs. f/u GI as OP for scope eval. Iron profile w/ low iron/folate & b12 wnl. s/p 1 unit prbc, if not further need for blood will transfuse iv iron before discharge. Advance diet as aly. Acute kidney injury superimposed on chronic kidney disease stage III:Baseline creatinine around 1.5, admitting creatinine of 2.9. Lasix and losartan on hold/gabapentin dose decreased. Patient does have BLE edema - improving. Nephrology consulted, appreciate recommendation. Labs in AM. 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 BNP 93. 3/13/22 ECHO w/ EF of 65-70%, grade I diastolic dysfunction. Will monitor. CXR w/ no congestion. ? renal vs cardiac, ECHO w/ ef of 65-70%. 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 She was covered in urine and feces when she was brought to the ED. CPK level minimally elevated, no rhabdomyolysis. PT/OT. Will likely need rehab/slitter helper facility then. 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 supportive Mx. Mild elevated troponin:Likely from her acute illness and DENNIS over CKD. Patient with no chest pain. EKG with no acute ST or T changes. Other chronic medical conditions:Continue with/resume home meds as and when able. Hypertension: On Coreg, irbesartan, nifedipine. We will monitor the blood pressure Anemia of chronic disease: Hemoglobin 9 seems her baseline. See above. GERD on Protonix and Pepcid Rheumatoid arthritis: We will hold leflunomide and prednisone for now. She has multiple arthritic joints and gets shots at her hips and knees at rheumatology office. Lately her left knee and hip are bothering.f/u rheum on DC. Depression: On Lexapro Restless leg syndrome: On ropinirole DVT prophylaxis: On hep drip due to dvt, will send eliquis for cost. Disposition med/telemetry. OOA involved, CM working on placement, patient will likely need SNF and then long-term facility. DNR/DNI Patient's brother Paterson and [id number] Kristine [[phone]] was given a phone call 11/03, updated in detail, discussed is of my progress note points, they are worried about her living condition at home and lack of help, made them aware such has been discussed with insurance case manager and they are helping with placement. Approximately 10 minutes spent in phone conversation. Admission and Anticipated Discharge Date Admission Date: November 01, 2022 Subjective Patient seen and examined at bedside, sitting up in chair, on room air, NAD. Patient denies any new acute event overnight, per RN patient is eating okay, was incontinent of stool overnight, no blood or black stool. Patient denies any fever/headache/dizziness/chest pain. Patient denies any SI/HI. Reports generalized chronic body/joint aches. Pt explained need for [place] [facility] support/care for her needs. Pt explained regarding options of anticoagulation, and she chose to go with eliquis for now but reports cost will be driving factor for her. Pt denies falls. We discussed about code status, pt chose to go with DNR/DNI. D/w insurance case manager, [facility] has been aware of her living condition who will be checking on her. she will likely need [place] [facility] placement. Physical Exam Physical Exam: GENERAL: Alert and oriented x3. NAD, on RA. Appears ill/weak/frail HEENT: No pallor, no icterus. Pupils equal, round and reactive to light. Oral mucosa moist. NECK: No JVD, no neck masses. HEART: S1 and S2 heard. Regular rate and rhythm. No murmur, no gallop. RESPIRATORY SYSTEM: Normal AP diameter. No accessory muscle use. No wheezing, no crackles. ABDOMEN: Soft, bowel sounds present, nontender, no distention. CENTRAL NERVOUS SYSTEM: No facial droop. Speech is clear. Obeys simple commands. Moves extremities. EXTREMITIES: 1+ edema, no erythema seen. Results & Data Results & Data Vital Signs (Past 12 Hours) Vital Signs Temp Pulse Pulse Resp BP Pulse Ox O2 Del Method 11/03/22 11:35 37 C 60 16 128/71 96 Nasal Cannula 11/03/22 09:00 Nasal Cannula 11/03/22 07:29 36.7 C 76 17 145/69 H 97 Nasal Cannula 11/03/22 07:46 74 11/03/22 03:52 36.7 C 81 18 156/72 H 96 Nasal Cannula O2 Flow Rate 11/03/22 11:35 1 11/03/22 09:00 2 11/03/22 07:29 1 11/03/22 07:46 11/03/22 03:52 2
--- NOTE | 2022-11-03 16:43 | Nephrology Progress Note ---
Date of Service November 03, 2022 Assessment & Plan (1) Acute kidney injury superimposed on CKD: Plan: plateau'd stage 1 nonoliguric DENNIS on CKD 3. 1.6 baseline creatinine. presents w/ creatinine 3 on 10/31, further slight improvement today at 2.6. This in setting of diarrheal illness (? from lasix versus e coli), acute DVT, concern for anemia >> w/ changes in all 3 blood lines some of this may be dilutional. for OP GI f/u, consideration at that time of scope. w/ new crackles on exam today stopped IVF after bag complete and will check CXR > may need renal u/s if improvement stalls -cont to hold losartan -ok w/ other antihypertensives; no lasix -daily bmp >>consider lowering gabapentin dose/frequency given Dennis >note no leflunomide on med list > ? nonformulary Care coordinated w/ Dr Barbour (2) Acute UTI (urinary tract infection): Plan: f/u pending culture w/ GNR on ceftriaxone (3) Anemia: Admission and Anticipated Discharge Date Admission Date: November 01, 2022 Subjective no acute interval events. note she is on 02nc this am. denies sob, n/v, ongoing diarrhea. stable chronic musculoskeletal pain and hyperesthesia. fracture for conservative mgt. Review of Systems Review of Systems: All systems reviewed & are unremarkable except as noted in Subjective Physical Exam Constitutional: well developed, well nourished, + frail appearing, + disheveled (belongings smell of cat urine) and cooperative; no acute distress Eyes: EOM intact bilaterally ENMT: Ears: no external ear abnormality Nose: no external nose abnormality Mouth: + dry oral mucous membranes Neck: no nuchal rigidity Respiratory: normal respiratory effort Auscultation: + diminished lung sounds (adrian R side) and + crackles Cardiovascular: Rate/Rhythm: regular rate and regular rhythm Extremities: + edema (1+ pedal trace LLE none R) Gastrointestinal (Abdomen): Inspection/Auscultation: normal bowel sounds Percussion/Palpation: abdomen soft; abdomen nontender Musculoskeletal: Extremities: strength 5/5 throughout Skin: no rashes, warm and dry Psychiatric: Orientation: alert, oriented to person and oriented to place Speech: normal rate/rhythm/volume of speech Results & Data Vital Signs (Past 12 Hours) Vital Signs Temp Pulse Pulse Resp BP Pulse Ox O2 Del Method 11/03/22 15:41 82 11/03/22 15:05 36.9 C 76 16 151/75 H 95 Nasal Cannula 11/03/22 11:35 37 C 60 16 128/71 96 Nasal Cannula 11/03/22 09:00 Nasal Cannula 11/03/22 07:29 36.7 C 76 17 145/69 H 97 Nasal Cannula 11/03/22 07:46 74 O2 Flow Rate 11/03/22 15:41 11/03/22 15:05 1 11/03/22 11:35 1 11/03/22 09:00 2 11/03/22 07:29 1 11/03/22 07:46 Laboratory Results 11/03/22 05:31 11/03/22 05:31
--- NOTE | 2022-11-03 17:53 | XRay Report ---
XR chest 1V portable CLINICAL HISTORY: needs o2, new lung crackles TECHNIQUE: Single frontal radiograph of the chest was obtained. Comparison: Comparison is made to chest radiograph 10/31/2022 FINDINGS: No lines and tubes are seen. The cardiomediastinal silhouette is normal. Reticular interstitial opaci ties are seen. No evidence of pleural effusion or pneumothorax. IMPRESSION: No acute abnormalities and in particular no radiographic evidence of pneumonia. Chronic interstitial disease. ACT 112: Negative or not required by law. Electronically signed by: Gui Coy M.D. 11/03/2022 5:50 PM
[2022-11-03] MEDS: MAGNESIUM OXIDE 400 MG TAB PO SCH (20:51)
[2022-11-03] MEDS: cefTRIAXone SODIUM 2,000 MG in DEXTROSE 5% 50 ML IV SCH (20:52)
[2022-11-03] MEDS: ESCITALOPRAM OXALATE 20 MG TAB PO SCH (20:52)
[2022-11-03] MEDS: FAMOTIDINE 10 MG TABLET PO SCH (20:52)
[2022-11-03] MEDS: rOPINIRole HCL 2 MG TABLET PO SCH (20:53)
[2022-11-03] MEDS: tiZANidine HCL 4 MG TABLET PO SCH (20:53)
[2022-11-04] MEDS: COMBIGAN~ORDER AWAITING ACTION SCH ×3 (00:22→15:36)
[2022-11-04] MEDS: LEVOTHYROXINE SODIUM 75 MCG TABLET PO SCH (05:42)
[2022-11-04 06:20] LABS: Basophils # (auto) 0.07 K/uL (0.00-0.20); Basophils % (auto) 0.8 %; Eosinophils % (auto) 4.5 %; Hematocrit (blood only) 24.6 % (37.0-47.0); Hemoglobin 7.9 g/dl (12.0-16.0); Immature Granulocytes # (auto) 0.13 K/uL (0.01-0.20); Immature Granulocytes % (auto) 1.5 %; Lymphocytes # (auto) 0.95 K/uL (1.20-3.40); Lymphocytes % (auto) 10.7 %; Mean Corpuscular Hemoglobin 29.9 pg (25.0-34.0); Mean Corpuscular Hgb Conc 32.1 g/dL (32.0-36.0); Mean Corpuscular Volume 93.2 fL (80.0-100.0); Monocytes # (auto) 0.95 K/uL (0.11-0.59); Monocytes % (auto) 10.7 %; Neutrophils # (auto) 6.34 K/uL (1.40-6.50); Neutrophils % (auto) 71.8 %; Platelet Count 263 K/uL (130-400); RDW Coefficient of Variation 14.7 % (11.5-14.5); RDW Standard Deviation 50.1 fL (36.4-46.3); Red Blood Count 2.64 M/uL (4.20-5.40); White Blood Count 8.84 K/ul (4.8-10.8)
[2022-11-04 06:36] LABS: Calcium 7.7 mg/dl (8.6-10.3); Est GFR (African American) 30.9 ml/min; Est GFR (Non-African American) 26.7 ml/min; Magnesium 2.4 mg/dl (1.7-2.4); Phosphorus 3.1 mg/dl (2.5-4.9); Potassium 3.9 mmol/L (3.5-5.1)
[2022-11-04 06:46] LABS: Echinocytes 1+
[2022-11-04 06:54] LABS: Partial Thromboplastin Ratio 1.4; Partial Thromboplastin Time 39.4 Seconds (21.0-31.0)
[2022-11-04] MEDS ORDERED: hydrALAZINE 10 MG TAB PO PRN (08:30)
[2022-11-04] MEDS: HEPARIN SODIUM/DEXTROSE 25,000 UNITS/500 ML BAG IV SCH ×3 (08:40→17:25)
[2022-11-04] MEDS: GABAPENTIN 300 MG CAP PO SCH ×3 (08:42→20:18)
[2022-11-04] MEDS: NIFEdipine EXTENDED REL 30 MG TABCR PO SCH (08:42)
[2022-11-04] MEDS: FOLIC ACID 1 MG TAB PO SCH (08:42)
[2022-11-04] MEDS: carvediloL 3.125 MG TAB PO SCH ×2 (08:42→20:18)
[2022-11-04] MEDS: hydrOXYzine HCl 25 MG TAB PO SCH ×3 (08:47→21:45)
[2022-11-04] MEDS: PANTOprazole 40 MG in SYRINGE 0 ML IV SCH (08:48)
[2022-11-04] MEDS: LEFLUNOMIDE 10 MG TAB PO SCH (12:22)
--- NOTE | 2022-11-04 13:16 | Nephrology Progress Note ---
Date of Service November 04, 2022 Assessment & Plan (1) Acute kidney injury superimposed on CKD: Plan: plateau'd stage 1 nonoliguric DENNIS on CKD 3. 1.6 baseline creatinine. presents w/ creatinine 3 on 10/31, further slight improvement today at 2.6. This in setting of diarrheal illness (? from lasix versus e coli), acute DVT, concern for anemia >> w/ changes in all 3 blood lines some of this may be dilutional. for OP GI f/u, consideration at that time of scope. -cont to hold losartan -ok w/ other antihypertensives;Continue to hold lasix, Increased Nifedipine to 120 mg. -daily bmp >>consider lowering gabapentin dose/frequency given Dennis >note no leflunomide on med list > ? nonformulary Care coordinated w/ Dr Barbour (2) Acute UTI (urinary tract infection): Plan: f/u pending culture w/ GNR on ceftriaxone (3) Anemia: Admission and Anticipated Discharge Date Admission Date: November 01, 2022 Subjective Comfortable,denies sob, n/v, ongoing diarrhea. stable chronic musculoskeletal pain and hyperesthesia. fracture for conservative mgt. Review of Systems Review of Systems: All systems reviewed & are unremarkable except as noted in HPI & below Results & Data Vital Signs (Past 12 Hours) Vital Signs Temp Pulse Resp BP BP Pulse Ox Pulse Ox 11/04/22 11:41 36.7 C 79 18 174/90 H 98 11/04/22 08:41 95 11/04/22 07:49 36.6 C 86 20 172/77 H 96 11/04/22 03:35 36.9 C 69 16 153/78 H 95 O2 Del Method O2 Del Method O2 Flow Rate 11/04/22 11:41 Room Air 11/04/22 08:41 Room Air 11/04/22 07:49 Nasal Cannula 1 11/04/22 03:35 Nasal Cannula 1 Laboratory Results 11/04/22 05:34 11/04/22 05:34
[2022-11-04 13:29] LABS: Hemoglobin 9.2 g/dl (12.0-16.0)
[2022-11-04 15:16] LABS: Partial Thromboplastin Ratio 1.3; Partial Thromboplastin Time 36.5 Seconds (21.0-31.0)
--- NOTE | 2022-11-04 15:54 | Hospitalist Progress Note ---
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 Patient denies being on any blood thinner in the past. Patient presented with BLE swelling. US Doppler positive for RLE DVT. VQ scan low probability of PE. Patient will need anticoagulation but complicated by her FOBT positive. Per RN no black/blood in the stool so far. Discussed with GI 11/02, okay to continue heparin drip for her DVT treatment. Closely monitor HnH. HnH in AM. Monitor stool color. eliquis cost $60/month, pt agreeable. transition to eliquis in next 1-2 days. GI Bleed/Acute on chronic anemia 2/2 blood loss:Baseline hemoglobin appears around 9-10. Admitting hemoglobin of 9, dropped to 8.1 next day. FOBT was positive, taken prior to resuming heparin drip due to aforementioned hemoglobin drop noted. Trend H&H every 12 hours or as needed. Transfuse PRBC for hemoglobin less than 8 or symptomatic anemia. s/p 1 Unit PRBC. Hold prednisone. GI consulted, IV to PO PPI twice daily, avoid NSAIDs. f/u GI as OP for scope eval. Iron profile w/ low iron/folate & b12 wnl. s/p 1 unit prbc, if not further need for blood will transfuse iv iron before discharge. Monitor stool for blood. Acute kidney injury superimposed on chronic kidney disease stage III:Baseline creatinine around 1.5, admitting creatinine of 2.9. Lasix and losartan on hold/gabapentin dose decreased. Patient does have BLE edema - improving. Nephrology consulted, appreciate recommendation. Labs in AM. Cr downtrending. 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 BNP 93. 3/ ECHO w/ EF of 65-70%, grade I diastolic dysfunction. Will monitor. CXR w/ no congestion. ? renal vs cardiac, ECHO w/ ef of 65-70%. Edema improving. 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 She was covered in urine and feces when she was brought to the ED. CPK level minimally elevated, no rhabdomyolysis. PT/OT. Will likely need rehab/halfway facility then. 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 supportive Mx. Mild elevated troponin:Likely from her acute illness and DENNIS over CKD. Patient with no chest pain. EKG with no acute ST or T changes. Other chronic medical conditions:Continue with/resume home meds as and when a ble. Hypertension: On Coreg, irbesartan, nifedipine. We will monitor the blood pressure Anemia of chronic disease: Hemoglobin 9 seems her baseline. See above. GERD on Protonix and Pepcid Rheumatoid arthritis: We will hold leflunomide and prednisone for now. She has multiple arthritic joints and gets shots at her hips and knees at rheumatology office. Lately her left knee and hip are bothering.f/u rheum on DC. Depression: On Lexapro Restless leg syndrome: On ropinirole DVT prophylaxis: On hep drip due to dvt. Disposition med/telemetry. OOA involved, CM working on placement, patient will likely need SNF and then long-term facility. DNR/DNI Patient's brother Johnathon and [id number] Kristine [[phone]] was given a phone call 11/03, updated in detail, discussed is of my progress note points, they are worried about her living condition at home and lack of help, made them aware such has been discussed with comp field case manager and they are helping with placement. Admission and Anticipated Discharge Date Admission Date: November 01, 2022 Subjective Patient seen and examined at bedside, sitting up in chair, on room air, NAD. Patient denies any new acute event overnight, per RN patient is eating okay, no BM today.. Patient denies any fever/headache/dizziness/chest pain. Patient denies any SI/HI. Reports generalized chronic body/joint aches. Pt explained need for halfway support/care for her needs. Patient agreeable to cost of Eliquis which is $60 a month. We will continue with heparin until hemoglobin deemed stable, then will transition to Eliquis. Pt denies falls. D/w comp field case manager 11/03, [facility] has been aware of her living condition who will be checking on her. she will likely need halfway placement. Physical Exam Physical Exam: GENERAL: Alert and oriented x3. NAD, on RA. Appears ill/weak/frail HEENT: No pallor, no icterus. Pupils equal, round and reactive to light. Oral mucosa moist. NECK: No JVD, no neck masses. HEART: S1 and S2 heard. Regular rate and rhythm. No murmur, no gallop. RESPIRATORY SYSTEM: Normal AP diameter. No accessory muscle use. No wheezing, no crackles. ABDOMEN: Soft, bowel sounds present, nontender, no distention. CENTRAL NERVOUS SYSTEM: No facial droop. Speech is clear. Obeys simple commands. Moves extremities. EXTREMITIES: 1+ edema, no erythema seen. Results & Data Results & Data Vital Signs (Past 12 Hours) Vital Signs Temp Pulse Resp BP Pulse Ox Pulse Ox O2 Del Method 11/04/22 11:41 36.7 C 79 18 174/90 H 98 Room Air 11/04/22 08:41 95 11/04/22 07:49 36.6 C 86 20 172/77 H 96 Nasal Cannula O2 Del Method O2 Flow Rate 11/04/22 11:41 11/04/22 08:41 Room Air 11/04/22 07:49 1
[2022-11-04] MEDS: FAMOTIDINE 10 MG TABLET PO SCH (20:18)
[2022-11-04] MEDS: ESCITALOPRAM OXALATE 20 MG TAB PO SCH (20:19)
[2022-11-04] MEDS: tiZANidine HCL 4 MG TABLET PO SCH (20:20)
[2022-11-04] MEDS: rOPINIRole HCL 2 MG TABLET PO SCH (20:20)
[2022-11-04] MEDS: PANTOprazole 40 MG TAB PO SCH (20:20)
[2022-11-04] MEDS: MAGNESIUM OXIDE 400 MG TAB PO SCH (20:21)
[2022-11-04] MEDS: HYDROCODONE/ACETAMOPHEN 5/325MG TAB PO PRN (20:48)
[2022-11-04] MEDS: cefTRIAXone SODIUM 2,000 MG in DEXTROSE 5% 50 ML IV SCH (20:55)
[2022-11-04 22:16] LABS: Partial Thromboplastin Ratio 1.3; Partial Thromboplastin Time 36.8 Seconds (21.0-31.0)
[2022-11-05 06:59] LABS: Hematocrit (blood only) 25.6 % (37.0-47.0); Hemoglobin 8.2 g/dl (12.0-16.0)
[2022-11-05 07:22] LABS: BUN Creatinine Ratio 20.5 (10-20); Calcium 8.2 mg/dl (8.6-10.3); Creatinine Clr Calc Pharmacy 31.6 ml/min; Est GFR (African American) 39.3 ml/min; Est GFR (Non-African American) 33.9 ml/min; Potassium 4.3 mmol/L (3.5-5.1)
[2022-11-05] MEDS: LEFLUNOMIDE 10 MG TAB PO SCH (07:37)
[2022-11-05] MEDS: NIFEdipine EXTENDED REL 30 MG TABCR PO SCH (07:38)
[2022-11-05] MEDS: LEVOTHYROXINE SODIUM 75 MCG TABLET PO SCH (07:39)
[2022-11-05] MEDS: carvediloL 3.125 MG TAB PO SCH ×2 (07:40→20:52)
[2022-11-05] MEDS: FOLIC ACID 1 MG TAB PO SCH (07:41)
[2022-11-05] MEDS: GABAPENTIN 300 MG CAP PO SCH ×2 (07:41→14:35)
[2022-11-05] MEDS: PANTOprazole 40 MG TAB PO SCH ×2 (07:42→20:49)
[2022-11-05 07:48] LABS: Partial Thromboplastin Ratio 1.7
[2022-11-05 07:52] LABS: Partial Thromboplastin Time 46.7 Seconds (21.0-31.0)
[2022-11-05] MEDS ORDERED: NIFEdipine EXTENDED REL 30 MG TABCR PO STA (08:18)
[2022-11-05] MEDS: hydrOXYzine HCl 25 MG TAB PO SCH ×3 (08:20→20:48)
[2022-11-05] MEDS ORDERED: hydrALAZINE HCL 20 MG/ML VIAL IV PRN (08:24)
[2022-11-05] MEDS: COMBIGAN~ORDER AWAITING ACTION SCH ×2 (10:37→15:45)
--- NOTE | 2022-11-05 10:56 | Nephrology Progress Note ---
Date of Service November 05, 2022 Assessment & Plan (1) Acute kidney injury superimposed on CKD: Plan: plateau'd stage 1 nonoliguric DENNIS on CKD 3. 1.6 baseline creatinine. presents w/ creatinine 3 on 10/31, further slight improvement today at 2.6. This in setting of diarrheal illness (? from lasix versus e coli), acute DVT, concern for anemia >> w/ changes in all 3 blood lines some of this may be dilutional. for OP GI f/u, consideration at that time of scope. - Bp still elevated, Increase Nifedipine to 120 mg and Hydralazine 50 Mg TID -ok w/ other antihypertensives; -Continue to hold lasix, and Losartan as her functions are still recovering. -daily bmp Care coordinated w/ Dr Barbour (2) Acute UTI (urinary tract infection): Plan: f/u pending culture w/ GNR on ceftriaxone (3) Anemia: Admission and Anticipated Discharge Date Admission Date: November 01, 2022 Subjective Patient seen and examined at bedside, sitting up in chair, on room air, Comfortable. Review of Systems Review of Systems: All systems reviewed & are unremarkable except as noted in HPI & below Results & Data Vital Signs (Past 12 Hours) Vital Signs Temp Pulse Pulse Resp BP Pulse Ox O2 Del Method 11/05/22 07:49 36.7 C 88 18 208/94 H 95 Room Air 11/05/22 07:30 62 11/05/22 07:27 83 11/05/22 07:24 83 11/05/22 04:26 36.5 C 88 16 180/96 H 94 Room Air 11/04/22 23:06 36.9 C 79 18 153/74 H 94 Room Air Laboratory Results 11/05/22 06:39 11/05/22 06:39
[2022-11-05] MEDS: hydrALAZINE TAB 50 MG TAB PO SCH ×3 (14:15→20:49)
[2022-11-05] MEDS: HYDROCODONE/ACETAMOPHEN 5/325MG TAB PO PRN (14:34)
[2022-11-05] MEDS: HEPARIN SODIUM/DEXTROSE 25,000 UNITS/500 ML BAG IV SCH ×3 (14:37→15:13)
--- NOTE | 2022-11-05 14:41 | Hospitalist Progress Note ---
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 Patient denies being on any blood thinner in the past. Patient presented with BLE swelling. US Doppler positive for RLE DVT. VQ scan low probability of PE. Patient will need anticoagulation but complicated by her FOBT positive. Per RN no black/blood in the stool so far. Discussed with GI 11/02, okay to continue heparin drip for her DVT treatment. Closely monitor HnH. HnH in AM. Monitor stool color. eliquis cost $60/month, pt agreeable. transition to eliquis when able. GI Bleed/Acute on chronic anemia 2/2 blood loss:Baseline hemoglobin appears around 9-10. Admitting hemoglobin of 9, dropped to 8.1 next day. FOBT was positive, taken prior to resuming heparin drip due to aforementioned hemoglobin drop noted. Trend H&H every 12 hours or as needed. Transfuse PRBC for hemoglobin less than 8 or symptomatic anemia. s/p 1 Unit PRBC. Hold prednisone. GI consulted, c/w PO PPI twice daily, avoid NSAIDs. f/u GI as OP for scope eval. Iron profile w/ low iron/folate & b12 wnl. s/p 1 unit prbc, if not further need for blood will transfuse iv iron before discharge. Monitor stool for blood. Acute kidney injury superimposed on chronic kidney disease stage III:Baseline creatinine around 1.5, admitting creatinine of 2.9. Lasix and losartan on hold/renal fxn back to baseline and recovering. Patient does have BLE edema - improving. Nephrology consulted, appreciate recommendation. Labs in AM. BLE Edema: Patient with complaint of increased lower extremity edema, recently prescribed Lasix from PCP office for last 1 week KNOCK UP ASSEMBLER, reported somewhat improving lower extremity swelling [RLE greater than LLE]. BNP 93. 3/ ECHO w/ EF of 65-70%, grade I diastolic dysfunction. Will monitor. CXR w/ no congestion. ? renal vs cardiac, ECHO w/ ef of 65-70%. Edema stable/improving. Acute UTI: Follow cultures - GNB/proteus, continue with Rocephin 11/01 Weakness:Patient reports increasing weakness for last 2 days KNOCK UP ASSEMBLER -she was sitting in her chair and was not able to get up. She was covered in urine and feces when she was brought to the ED. CPK level minimally elevated, no rhabdomyolysis. PT/OT. Will likely need rehab/intermodal customer service facility then. Diarrhea: for about a week KNOCK UP ASSEMBLER, stool PCR neg, except for EPEC. supportive Mx. Mild elevated troponin:Likely from her acute illness and DENNIS over CKD. Patient with no chest pain. EKG with no acute ST or T changes. Other chronic medical conditions:Continue with/resume home meds as and when abl e. Hypertension: On Coreg, irbesartan, nifedipine. BP high today, d/w nephro - increased nifedipine to 120 mg AM, added hydralazine 50 mg QID. ARB and lasix on hold. Anemia of chronic disease: Hemoglobin 9 seems her baseline. See above. GERD on Protonix and Pepcid Rheumatoid arthritis: We will hold leflunomide and prednisone for now. She has multiple arthritic joints and gets shots at her hips and knees at rheumatology office. Lately her left knee and hip are bothering.f/u rheum on DC. Depression: On Lexapro Restless leg syndrome: On ropinirole DVT prophylaxis: On hep drip due to dvt. Disposition med/telemetry. OOA involved, CM working on placement, patient will likely need SNF and then long-term facility. DNR/DNI Patient's brother [place] and [id number] Kristine [[phone]] was given a phone call 11/03, updated in detail, discussed is of my progress note points, they are worried about her living condition at home and lack of help, made them aware such has been discussed with telehealth case manager and they are helping with placement. Admission and Anticipated Discharge Date Admission Date: November 01, 2022 Subjective Patient seen and examined at bedside, sitting up in chair, on room air, NAD. Patient denies any new acute event overnight, per RN patient is eating okay, no blood or black in BM today. Patient denies any fever/headache/dizziness/chest pain. Patient denies any SI/HI. Reports generalized chronic body/joint aches/ neuropathy symptoms. Pt explained need for halfway support/care for her needs. Patient agreeable to cost of Eliquis which is $60 a month. We will continue with heparin until hemoglobin deemed stable, then will transition to Eliquis. Pt denies falls. D/w telehealth case manager 11/03, [facility] has been aware of her living condition who will be checking on her. she will likely need halfway placement. Physical Exam Physical Exam: GENERAL: Alert and oriented x3. NAD, on RA. Appears ill/weak/frail HEENT: No pallor, no icterus. Pupils equal, round and reactive to light. Oral mucosa moist. NECK: No JVD, no neck masses. HEART: S1 and S2 heard. Regular rate and rhythm. No murmur, no gallop. RESPIRATORY SYSTEM: Normal AP diameter. No accessory muscle use. No wheezing, no crackles. ABDOMEN: Soft, bowel sounds present, nontender, no distention. CENTRAL NERVOUS SYSTEM: No facial droop. Speech is clear. Obeys simple co mmands. Moves extremities. EXTREMITIES: 1+ edema, no erythema seen. Results & Data Results & Data Vital Signs (Past 12 Hours) Vital Signs Temp Pulse Pulse Pulse Resp BP Pulse Ox 11/05/22 11:52 37.3 C 78 18 189/82 H 94 11/05/22 08:00 11/05/22 07:49 36.7 C 88 18 208/94 H 95 11/05/22 07:30 62 11/05/22 07:27 83 11/05/22 07:24 83 11/05/22 04:26 36.5 C 88 16 180/96 H 94 O2 Del Method 11/05/22 11:52 Room Air 11/05/22 08:00 Room Air 11/05/22 07:49 Room Air 11/05/22 07:30 11/05/22 07:27 11/05/22 07:24 11/05/22 04:26 Room Air
[2022-11-05] MEDS ORDERED: PROMETHAZINE HCL 12.5 MG in SODIUM CHLORIDE 0.9% 50 ML IV PRN (20:11)
[2022-11-05] MEDS: rOPINIRole HCL 2 MG TABLET PO SCH (20:48)
[2022-11-05] MEDS: tiZANidine HCL 4 MG TABLET PO SCH (20:48)
[2022-11-05] MEDS: ACETAMINOPHEN 325 MG TAB PO PRN (20:48)
[2022-11-05] MEDS: MAGNESIUM OXIDE 400 MG TAB PO SCH (20:49)
[2022-11-05] MEDS: FAMOTIDINE 10 MG TABLET PO SCH (20:51)
[2022-11-05] MEDS: ESCITALOPRAM OXALATE 20 MG TAB PO SCH (20:52)
[2022-11-05] MEDS: GABAPENTIN 600 MG TAB PO SCH (20:58)
[2022-11-05] MEDS: cefTRIAXone SODIUM 2,000 MG in DEXTROSE 5% 50 ML IV SCH (21:23)
[2022-11-06] MEDS: COMBIGAN~ORDER AWAITING ACTION SCH ×2 (01:24→08:55)
[2022-11-06] MEDS: LEVOTHYROXINE SODIUM 75 MCG TABLET PO SCH (05:47)
[2022-11-06 06:08] LABS: Basophils % (auto) 0.8 %; Eosinophils % (auto) 4.4 %; Hematocrit (blood only) 26.3 % (37.0-47.0); Hemoglobin 8.5 g/dl (12.0-16.0); Mean Corpuscular Hemoglobin 29.6 pg (25.0-34.0); Mean Corpuscular Hgb Conc 32.3 g/dL (32.0-36.0); Mean Corpuscular Volume 91.6 fL (80.0-100.0); Mean Platelet Volume 8.8 fL (9.4-12.4); Monocytes % (auto) 11.6 %; Neutrophils % (auto) 69.9 %; Platelet Count 254 K/uL (130-400); RDW Coefficient of Variation 14.6 % (11.5-14.5); RDW Standard Deviation 49.1 fL (36.4-46.3); Red Blood Count 2.87 M/uL (4.20-5.40); White Blood Count 9.88 K/ul (4.8-10.8)
[2022-11-06 06:09] LABS: Basophils # (auto) 0.08 K/uL (0.00-0.20); Eosinophils # (auto) 0.43 K/uL (0.00-0.50); Immature Granulocytes # (auto) 0.23 K/uL (0.01-0.20); Immature Granulocytes % (auto) 2.3 %; Lymphocytes # (auto) 1.09 K/uL (1.20-3.40); Monocytes # (auto) 1.15 K/uL (0.11-0.59)
[2022-11-06 06:25] LABS: BUN Creatinine Ratio 17.5 (10-20); Calcium 8.1 mg/dl (8.6-10.3); Creatinine Clr Calc Pharmacy 30.1 ml/min; Est GFR (African American) 36.8 ml/min; Est GFR (Non-African American) 31.8 ml/min; Magnesium 1.9 mg/dl (1.7-2.4); Phosphorus 2.8 mg/dl (2.5-4.9); Potassium 4.1 mmol/L (3.5-5.1)
[2022-11-06 06:33] LABS: Partial Thromboplastin Ratio 1.7
[2022-11-06 06:39] LABS: Partial Thromboplastin Time 47.5 Seconds (21.0-31.0)
[2022-11-06] MEDS: carvediloL 3.125 MG TAB PO SCH ×2 (08:48→20:33)
[2022-11-06] MEDS: NIFEdipine EXTENDED REL 30 MG TABCR PO SCH (08:48)
[2022-11-06] MEDS: PANTOprazole 40 MG TAB PO SCH ×2 (08:48→20:30)
[2022-11-06] MEDS: FOLIC ACID 1 MG TAB PO SCH (08:48)
[2022-11-06] MEDS: GABAPENTIN 600 MG TAB PO SCH ×3 (08:48→20:32)
[2022-11-06] MEDS: LEFLUNOMIDE 10 MG TAB PO SCH (08:48)
[2022-11-06] MEDS: hydrALAZINE TAB 50 MG TAB PO SCH ×4 (08:48→20:31)
[2022-11-06] MEDS: hydrOXYzine HCl 25 MG TAB PO SCH ×3 (09:34→20:41)
--- NOTE | 2022-11-06 11:16 | Nephrology Progress Note ---
Date of Service November 06, 2022 Assessment & Plan Admission and Anticipated Discharge Date Admission Date: November 01, 2022 Subjective Assessment & Plan (1) Acute kidney injury superimposed on CKD: Plan: nonoliguric DENNIS on CKD 3. 1.6 baseline creatinine and is back to baseline now. She presented with creatinine 3 on 10/31.In setting of diarrheal illness (? from lasix versus e coli), acute DVT, concern for anemia -cont to hold losartan -ok w/ other antihypertensives. BP is high and she does have edema and will start lasix. 40 mg iv x 1 now and daily. Subjective no acute interval events.Feels downbeat because not gettting better fast. denies sob, n/v, ongoing diarrhea. Review of Systems Review of Systems: All systems reviewed & are unremarkable except as noted in Subjective Physical Exam Constitutional: well developed, well nourished, + frail appearing, + disheveled (belongings smell of cat urine) and cooperative; no acute distress Eyes: EOM intact bilaterally ENMT: Ears: no external ear abnormality Nose: no external nose abnormality Mouth: + dry oral mucous membranes Neck: no nuchal rigidity Respiratory: normal respiratory effort Auscultation: + diminished lung sounds (adrian R side) and + crackles Cardiovascular: Rate/Rhythm: regular rate and regular rhythm Gastrointestinal (Abdomen): Inspection/Auscultation: normal bowel sounds Percussion/Palpation: abdomen soft; abdomen nontender Musculoskeletal: Extremities: 2+ edema left and 1+ right Skin: no rashes, warm and dry Psychiatric: Orientation: alert, oriented to person and oriented to place Speech: normal rate/rhythm/volume of speech Results & Data Vital Signs (Past 12 Hours) Vital Signs Temp Pulse Pulse Resp BP Pulse Ox O2 Del Method 11/06/22 07:50 37.1 C 90 16 197/82 H 95 Room Air 11/06/22 07:19 83 11/06/22 02:56 37.1 C 64 18 147/68 H 95 Room Air 11/05/22 23:22 37.5 C 83 16 152/73 H 93 Room Air
[2022-11-06] MEDS: FUROSEMIDE 40 MG/4 ML VIAL IV SCH (11:57)
[2022-11-06] MEDS: HEPARIN SODIUM/DEXTROSE 25,000 UNITS/500 ML BAG IV SCH (12:18)
[2022-11-06] MEDS: guaiFENesin/CODEINE 100MG/10MG 5ML UDC PO PRN ×2 (12:37→20:48)
--- NOTE | 2022-11-06 15:01 | Hospitalist Progress Note ---
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 Patient denies being on any blood thinner in the past. Patient presented with BLE swelling. US Doppler positive for RLE DVT. VQ scan low probability of PE. Continue heparin drip for her DVT treatment. Closely monitor HnH. HnH in AM. Monitor stool color. eliquis cost $60/month, pt agreeable. transition to eliquis when able. GI Bleed/Acute on chronic anemia 2/2 blood loss:Baseline hemoglobin appears around 9-10. Admitting hemoglobin of 9, dropped to 8.1 next day. FOBT was positive, taken prior to resuming heparin drip due to aforementioned hemoglobin drop noted. Trend H&H every 12 hours or as needed. Transfuse PRBC for hemoglobin less than 8 or symptomatic anemia. s/p 1 Unit PRBC. Hold prednisone. GI consulted, c/w PO PPI twice daily, avoid NSAIDs. f/u GI as OP for scope eval. Iron profile w/ low iron/folate & b12 wnl. s/p 1 unit prbc, if not further need for blood will transfuse iv iron before discharge. Monitor stool for blood. Acute kidney injury superimposed on chronic kidney disease stage III:Baseline creatinine around 1.5, admitting creatinine of 2.9.d/w nephro - will hold losartan and resume lasix. Patient does have BLE edema - improving. Nephrology consulted, appreciate recommendation. Labs in AM. BLE Edema: Patient with complaint of increased lower extremity edema, recently prescribed Lasix from PCP office for last 1 week STATE INSPECTOR, reported somewhat improving lower extremity swelling [RLE greater than LLE]. BNP 93. 3/ ECHO w/ EF of 65-70%, grade I diastolic dysfunction. Will monitor. CXR w/ no congestion. ? renal vs cardiac, ECHO w/ ef of 65-70%. Edema stable/improving. Resuming lasix from 11/06. Acute UTI: Follow cultures - GNB/proteus, continue with Rocephin 11/01 Weakness:Patient reports increasing weakness for last 2 days STATE INSPECTOR -she was sitting in her chair and was not able to get up. She was covered in urine and feces when she was brought to the ED. CPK level minimally elevated, no rhabdomyolysis. PT/OT. Will likely need rehab/nursing home facility then. Diarrhea: for about a week STATE INSPECTOR, stool PCR neg, except for EPEC. supportive Mx. Mild elevated troponin:Likely from her acute illness and DENNIS over CKD. Patient with no chest pain. EKG with no acute ST or T changes. Other chronic medical conditions:Continue with/resume home meds as and when able. Hypertension: On Coreg, irbesartan, nifedipine. BP high today, d/w nephro - started lasix, ARB on hold. Anemia of chronic disease: Hemoglobin 9 seems her baseline. See above. GERD on Protonix and Pepcid Rheumatoid arthritis: We will hold leflunomide and prednisone for now. She has multiple arthritic joints and gets shots at her hips and knees at rheumatology office. Lately her left knee and hip are bothering.f/u rheum on DC. Depression: On Lexapro Restless leg syndrome: On ropinirole DVT prophylaxis: On hep drip due to dvt. Disposition med/telemetry. OOA involved, CM working on placement, patient will likely need SNF and then long-term facility. DNR/DNI Patient's brother [place] and [id number] Kristine [[phone]] was given a phone call 11/03, updated in detail, discussed is of my progress note points, they are worried about her living condition at home and lack of help, made them aware such has been discussed with corrections caseworker and they are helping with placement. Admission and Anticipated Discharge Date Admission Date: November 01, 2022 Subjective Patient seen and examined at bedside, sitting up in chair, on room air, NAD. Patient denies any new acute event overnight, per RN patient is eating okay, no diarrheal BMs. Patient denies any fever/headache/dizziness/chest pain. Patient denies any SI/HI. Reports generalized chronic body/joint aches/ neuropathy symptoms. Pt explained need for erp programmer support/care for her needs. Patient agreeable to cost of Eliquis which is $60 a month. We will continue with heparin until hemoglobin deemed stable, then will transition to Eliquis. Pt denies falls. D/w corrections caseworker 11/03, [facility] has been aware of her living condition who will be checking on her. she will likely need nursing home placement. Physical Exam Physical Exam: GENERAL: Alert and oriented x3. NAD, on RA. Appears ill/weak/frail HEENT: No pallor, no icterus. Pupils equal, round and reactive to light. Oral mucosa moist. NECK: No JVD, no neck masses. HEART: S1 and S2 heard. Regular rate and rhythm. No murmur, no gallop. RESPIRATORY SYSTEM: Normal AP diameter. No accessory muscle use. No wheezing, no crackles. ABDOMEN: Soft, bowel sounds present, nontender, no distention. CENTRAL NERVOUS SYSTEM: No facial droop. Speech is clear. Obeys simple commands. Moves extremities. EXTREMITIES: 1+ edema, no erythema seen. Results & Data Results & Data Vital Signs (Past 12 Hours) Vital Signs Temp Pulse Pulse Resp BP Pulse Ox O2 Del Method 11/06/22 11:48 36.4 C L 82 16 162/75 H 94 Room Air 11/06/22 07:50 37.1 C 90 16 197/82 H 95 Room Air 11/06/22 07:19 83
[2022-11-06] MEDS: ACETAMINOPHEN 325 MG TAB PO PRN (20:28)
[2022-11-06] MEDS: TIMOLOL MALEATE 0.5% OP SOLN 5 ML BTL OP SCH (20:29)
[2022-11-06] MEDS: rOPINIRole HCL 2 MG TABLET PO SCH (20:29)
[2022-11-06] MEDS: tiZANidine HCL 4 MG TABLET PO SCH (20:30)
[2022-11-06] MEDS: ESCITALOPRAM OXALATE 20 MG TAB PO SCH (20:30)
[2022-11-06] MEDS: MAGNESIUM OXIDE 400 MG TAB PO SCH (20:31)
[2022-11-06] MEDS: FAMOTIDINE 10 MG TABLET PO SCH (20:32)
[2022-11-06] MEDS: BRIMONIDINE TARTRATE 0.2% 5ML OP SCH (20:33)
[2022-11-06] MEDS: cefTRIAXone SODIUM 2,000 MG in DEXTROSE 5% 50 ML IV SCH (20:41)
[2022-11-06] MEDS: HYDROCODONE/ACETAMOPHEN 5/325MG TAB PO PRN (20:41)
[2022-11-07 06:09] LABS: Hematocrit (blood only) 24.6 % (37.0-47.0); Hemoglobin 8.2 g/dl (12.0-16.0)
[2022-11-07 06:21] LABS: BUN Creatinine Ratio 16.1 (10-20); Calcium 8.1 mg/dl (8.6-10.3); Creatinine Clr Calc Pharmacy 26.6 ml/min; Est GFR (African American) 31.8 ml/min; Est GFR (Non-African American) 27.4 ml/min; Potassium 3.7 mmol/L (3.5-5.1)
[2022-11-07 06:30] LABS: Partial Thromboplastin Ratio 1.7
[2022-11-07 06:33] LABS: Partial Thromboplastin Time 47.6 Seconds (21.0-31.0)
[2022-11-07] MEDS: LEVOTHYROXINE SODIUM 75 MCG TABLET PO SCH (07:30)
[2022-11-07] MEDS: FOLIC ACID 1 MG TAB PO SCH (09:20)
[2022-11-07] MEDS: LEFLUNOMIDE 10 MG TAB PO SCH (09:21)
[2022-11-07] MEDS: hydrALAZINE TAB 50 MG TAB PO SCH ×3 (09:22→20:53)
[2022-11-07] MEDS: NIFEdipine EXTENDED REL 30 MG TABCR PO SCH (09:22)
[2022-11-07] MEDS: carvediloL 3.125 MG TAB PO SCH ×2 (09:22→20:56)
[2022-11-07] MEDS: GABAPENTIN 600 MG TAB PO SCH ×3 (09:22→20:54)
[2022-11-07] MEDS: PANTOprazole 40 MG TAB PO SCH ×2 (09:22→20:54)
[2022-11-07] MEDS: FUROSEMIDE 40 MG/4 ML VIAL IV SCH (09:23)
[2022-11-07] MEDS: TIMOLOL MALEATE 0.5% OP SOLN 5 ML BTL OP SCH ×2 (09:23→20:55)
[2022-11-07] MEDS: BRIMONIDINE TARTRATE 0.2% 5ML OP SCH ×2 (09:23→20:52)
[2022-11-07] MEDS: HEPARIN SODIUM/DEXTROSE 25,000 UNITS/500 ML BAG IV SCH (09:26)
[2022-11-07] MEDS: hydrOXYzine HCl 25 MG TAB PO SCH ×3 (09:26→20:53)
--- NOTE | 2022-11-07 10:44 | Nephrology Progress Note ---
Date of Service November 07, 2022 Assessment & Plan Admission and Anticipated Discharge Date Admission Date: November 01, 2022 Subjective Assessment & Plan (1) Acute kidney injury superimposed on CKD: Plan: nonoliguric DENNIS on CKD 3. 1.6 baseline creatinine and is back to baseline now. She presented with creatinine 3 on 10/31.In setting of diarrheal illness (? from lasix versus e coli), acute DVT, concern for anemia -cont to hold losartan -ok w/ other antihypertensives. BP is now much better. Change hydralazine to tid for Compliance/Convenience. lower procardia to 90 daily. She does have edema and will continue lasix. 40 mg iv x 1 daily. Creat went up a bit but is still fairly close to her baseline Subjective no acute interval events.made 1800 ml urine denies sob, n/v, ongoing diarrhea. Review of Systems Review of Systems: All systems reviewed & are unremarkable except as noted in Subjective Physical Exam Constitutional: well developed, well nourished, + frail appearing, + dishe veled (belongings smell of cat urine) and cooperative; no acute distress Eyes: EOM intact bilaterally ENMT: Ears: no external ear abnormality Nose: no external nose abnormality Mouth: + dry oral mucous membranes Neck: no nuchal rigidity Respiratory: normal respiratory effort Auscultation: + diminished lung sounds (adrian R side) and + crackles Cardiovascular: Rate/Rhythm: regular rate and regular rhythm Gastrointestinal (Abdomen): Inspection/Auscultation: normal bowel sounds Percussion/Palpation: abdomen soft; abdomen nontender Musculoskeletal: Extremities: 2+ edema left and 1+ right Skin: no rashes, warm and dry Psychiatric: Orientation: alert, oriented to person and oriented to place S peech: normal rate/rhythm/volume of speech Results & Data Vital Signs (Past 12 Hours) Vital Signs Temp Pulse Pulse Pulse Resp BP Pulse Ox 11/07/22 07:54 37.2 C 82 18 149/72 H 95 11/07/22 07:48 80 11/07/22 03:19 37.3 C 81 20 119/65 92 11/07/22 00:54 36.8 C 69 18 92/56 L 93 O2 Del Method 11/07/22 07:54 Room Air 11/07/22 07:48 11/07/22 03:19 Room Air 11/07/22 00:54 Room Air
[2022-11-07] MEDS: APIXABAN 5 MG TABLET PO SCH ×2 (12:34→22:01)
--- NOTE | 2022-11-07 13:49 | Hospitalist Progress Note ---
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 Patient denies being on any blood thinner in the past. Patient presented with BLE swelling. US Doppler positive for RLE DVT. VQ scan low probability of PE. Hep Drip to eliquis from am of 11/07. Closely monitor HnH. HnH in AM. Monitor stool color. GI Bleed/Acute on chronic anemia 2/2 blood loss:Baseline hemoglobin appears around 9-10. Admitting hemoglobin of 9, dropped to 8.1 next day. FOBT was positive, taken prior to resuming heparin drip due to aforementioned hemoglobin drop noted. Trend H&H every 12 hours or as needed. Transfuse PRBC for hemoglobin less than 8 or symptomatic anemia. s/p 1 Unit PRBC. Hold prednisone. GI consulted, c/w PO PPI twice daily, avoid NSAIDs. f/u GI as OP for scope eval. Iron profile w/ low iron/folate & b12 wnl. s/p 1 unit prbc, if not further need for blood will transfuse iv iron before discharge. Monitor stool for blood. Acute kidney injury superimposed on chronic kidney disease stage III:Baseline creatinine around 1.5, admitting creatinine of 2.9.d/w nephro - will hold losartan and resume lasix. Patient does have BLE edema - improving. Nephrology consulted, appreciate recommendation. Labs in AM. 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 BNP 93. 3/ ECHO w/ EF of 65-70%, grade I diastolic dysfunction. Will monitor. CXR w/ no congestion. ? renal vs cardiac, ECHO w/ ef of 65-70%. Edema stable/improving. Resuming lasix from 11/06. Currently on iv lasix. Acute UTI: Follow cultures - GNB/proteus, continue with Rocephin 11/01-11/07, will complete after today's dose. Weakness:Patient reports increasing weakness for last 2 days LUMBER STRAIGHTENER -she was sitting in her chair and was not able to get up. She was covered in urine and feces when she was brought to the ED. CPK level minimally elevated, no rhabdomy olysis. PT/OT. Will likely need rehab/usp facility then. Diarrhea: for about a week LUMBER STRAIGHTENER, stool PCR neg, except for EPEC. supportive Mx. Mild elevated troponin:Likely from her acute illness and DENNIS over CKD. Patient with no chest pain. EKG with no acute ST or T changes. Other chronic medical conditions:Continue with/resume home meds as and when able. Hypertension: On Coreg, irbesartan, nifedipine. BP better, on hydralazine tid and nifedipine 90 mg daily, ARB on hold. Anemia of chronic disease: Hemoglobin 9 seems her baseline. See above. GERD on Protonix and Pepcid Rheumatoid arthritis: We will hold leflunomide and prednisone for now. She has multiple arthritic joints and gets shots at her hips and knees at rheumatology office. Lately her left knee and hip are bothering.f/u rheum on DC. Depression: On Lexapro Restless leg syndrome: On ropinirole DVT prophylaxis: On hep drip due to dvt. Disposition med/telemetry. OOA involved, CM working on placement, patient will likely need SNF and then long-term facility. DNR/DNI Patient's brother [facility] and [id number] Kristine [[phone]] was given a phone call 11/03, updated in detail, discussed is of my progress note points, they are worried about her living condition at home and lack of help, made them aware such has been discussed with case filler and they are helping with placement. Admission and Anticipated Discharge Date Admission Date: November 01, 2022 Subjective Patient seen and examined at bedside, sitting up in chair, on room air, NAD. Patient denies any new acute event overnight, per RN patient is eating okay, no diarrheal BMs. Patient denies any fever/headache/dizziness/chest pain. Patient denies any SI/HI. Reports generalized chronic body/joint aches/ neuropathy symptoms. will use diclofenac gel b/l knees. Pt explained need for usp support/care for her needs. Patient agreeable to cost of Eliquis which is $60 a month. Pt denies falls. Will DC hep drip today, will use eliquis 10 mg bid x 7 days f/b 5 mg bid starting AM of 11/07/22. D/w case filler 11/03OBEY has been aware of her living condition who will be checking on her. she will likely need usp placement. Physical Exam Physical Exam: GENERAL: Alert and oriented x3. NAD, on RA. Appears ill/weak/frail HEENT: No pallor, no icterus. Pupils equal, round and reactive to light. Oral mucosa moist. NECK: No JVD, no neck masses. HEART: S1 and S2 heard. Regular rate and rhythm. No murmur, no gallop. RESPIRATORY SYSTEM: Normal AP diameter. No accessory muscle use. No wheezing, no crackles. ABDOMEN: Soft, bowel sounds present, nontender, no distention. CENTRAL NERVOUS SYSTEM: No facial droop. Speech is clear. Obeys simple commands. Moves extremities. EXTREMITIES: 1+ edema, no erythema seen. Results & Data Results & Data Vital Signs (Past 12 Hours) Vital Signs Temp Pulse Pulse Pulse Resp BP Pulse Ox 11/07/22 11:36 36.9 C 74 18 121/57 L 96 11/07/22 07:54 37.2 C 82 18 149/72 H 95 11/07/22 07:48 80 11/07/22 03:19 37.3 C 81 20 119/65 92 O2 Del Method 11/07/22 11:36 Room Air 11/07/22 07:54 Room Air 11/07/22 07:48 11/07/22 03:19 Room Air
[2022-11-07] MEDS: DICLOFENAC SOD 1% GEL 100 GM TUBE EXT PRN (19:28)
[2022-11-07] MEDS: rOPINIRole HCL 2 MG TABLET PO SCH (20:53)
[2022-11-07] MEDS: tiZANidine HCL 4 MG TABLET PO SCH (20:53)
[2022-11-07] MEDS: FAMOTIDINE 10 MG TABLET PO SCH (20:54)
[2022-11-07] MEDS: cefTRIAXone SODIUM 2,000 MG in DEXTROSE 5% 50 ML IV SCH (20:55)
[2022-11-07] MEDS: ESCITALOPRAM OXALATE 20 MG TAB PO SCH (20:55)
[2022-11-07] MEDS: HYDROCODONE/ACETAMOPHEN 5/325MG TAB PO PRN (20:57)
[2022-11-08] MEDS: LEVOTHYROXINE SODIUM 75 MCG TABLET PO SCH (05:50)
[2022-11-08 08:40] LABS: Basophils # (auto) 0.11 K/uL (0.00-0.20); Basophils % (auto) 1.3 %; Eosinophils # (auto) 0.46 K/uL (0.00-0.50); Eosinophils % (auto) 5.5 %; Hematocrit (blood only) 27.4 % (37.0-47.0); Hemoglobin 8.7 g/dl (12.0-16.0); Immature Granulocytes # (auto) 0.35 K/uL (0.01-0.20); Immature Granulocytes % (auto) 4.2 %; Lymphocytes # (auto) 1.17 K/uL (1.20-3.40); Lymphocytes % (auto) 13.9 %; Mean Corpuscular Hemoglobin 29.5 pg (25.0-34.0); Mean Corpuscular Hgb Conc 31.8 g/dL (32.0-36.0); Mean Corpuscular Volume 92.9 fL (80.0-100.0); Mean Platelet Volume 9.3 fL (9.4-12.4); Monocytes # (auto) 0.97 K/uL (0.11-0.59); Monocytes % (auto) 11.5 %; Neutrophils # (auto) 5.36 K/uL (1.40-6.50); Neutrophils % (auto) 63.6 %; Platelet Count 219 K/uL (130-400); RDW Standard Deviation 50.6 fL (36.4-46.3); Red Blood Count 2.95 M/uL (4.20-5.40); White Blood Count 8.42 K/ul (4.8-10.8)
[2022-11-08] MEDS: BRIMONIDINE TARTRATE 0.2% 5ML OP SCH ×2 (08:47→20:54)
[2022-11-08] MEDS: FUROSEMIDE 40 MG/4 ML VIAL IV SCH ×2 (08:47→10:05)
[2022-11-08] MEDS: NIFEdipine EXTENDED REL 30 MG TABCR PO SCH (08:48)
[2022-11-08] MEDS: FOLIC ACID 1 MG TAB PO SCH (08:48)
[2022-11-08] MEDS: LEFLUNOMIDE 10 MG TAB PO SCH (08:48)
[2022-11-08] MEDS: PANTOprazole 40 MG TAB PO SCH ×2 (08:48→20:52)
[2022-11-08] MEDS: GABAPENTIN 600 MG TAB PO SCH ×3 (08:48→20:53)
[2022-11-08] MEDS: carvediloL 3.125 MG TAB PO SCH ×2 (08:48→20:54)
[2022-11-08] MEDS: hydrALAZINE TAB 50 MG TAB PO SCH ×3 (08:48→20:52)
[2022-11-08] MEDS: TIMOLOL MALEATE 0.5% OP SOLN 5 ML BTL OP SCH ×2 (08:48→20:54)
[2022-11-08] MEDS: hydrOXYzine HCl 25 MG TAB PO SCH ×3 (08:52→20:56)
[2022-11-08 08:59] LABS: Albumin Globulin Ratio 1.1 (0.9-2); Albumin Level 2.8 gm/dl (3.4-5.0); BUN Creatinine Ratio 16.4 (10-20); Bilirubin,Total 0.5 mg/dl (0.2-1.0); Calcium 8.3 mg/dl (8.6-10.3); Creatinine Clr Calc Pharmacy 22.6 ml/min; Est GFR (African American) 26.7 ml/min; Globulin 2.5 gm/dl (2.5-4.0); Phosphorus 3.5 mg/dl (2.5-4.9); Potassium 3.7 mmol/L (3.5-5.1); Total Protein 5.3 gm/dl (6.0-8.3)
[2022-11-08] MEDS: DICLOFENAC SOD 1% GEL 100 GM TUBE EXT PRN (09:59)
--- NOTE | 2022-11-08 10:17 | Hospitalist Progress Note ---
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 Patient presented with BLE swelling. US Doppler positive for RLE DVT. VQ scan low probability of PE. Was on Heparin Drip initially, now transitioned to eliquis since 11/07/22. Possible GI Bleed Acute on chronic anemia: Baseline hemoglobin appears around 9-10. Admitting hemoglobin of 9, dropped to 8.1 next day. FOBT was reported to be positive, taken prior to resuming heparin drip due to aforementioned hemoglobin drop noted. Got 1 Unit PRBC. GI evaluation noted Continue PPI twice daily and avoid NSAIDs. Patient to follow up with GI outpatient for scopes. Acute kidney injury superimposed on chronic kidney disease stage III: Baseline creatinine around 1.5-1.6 Admitting creatinine of 2.9. Nephrology on board Cr improved to 1.46 and then trending up again. Cr is 2.01 today Discussed with 3D Artist. 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 3/ ECHO w/ EF of 65-70%, grade I diastolic dysfunction. 11/02/22ECHO w/ ef of 65-70%, mild S, mild MR/TR Leg edema could be due to DENNIS vs diastolic heart failure exacerbation Nephro recs noted Lower extremity DVT likely contributory as well Acute UTI: Urine culture grew proteus Completed 7 days of IV ceftriaxone Weakness: Patient reported increasing weakness for 2 days RECEPTIONIST/TELEPHONE OPERATOR -she was sitting in her chair and was not able to get up. She was covered in urine and feces when she was brought to the ED. CPK level minimally elevated, no rhabdomyolysis. Get PT/OT eval May need placement Diarrhea: For about a week RECEPTIONIST/TELEPHONE OPERATOR Stool PCR was positive for EPEC. Continue supportive care Mild elevated troponin: Likely from her acute illness and DENNIS over CKD. Patient with no chest pain. EKG with no acute ST or T changes. Hypertension: Continue Coreg, nifedipine. Continue to hold irbesartan Continue hydralazine 50mg TID per Nephro Rheumatoid arthritis: Home leflunomide and prednisone were held on admission due to infection Resume home prednisone She has multiple arthritic joints and gets shots at her hips and knees at rheumatology office. Continue follow up with Primary Rheum outpatient Depression: On Lexapro Restless leg syndrome: On ropinirole DVT prophylaxis: Francois Patient's brother [place] and [id number] Kristine [[phone]] I spent a total of 50 minutes coordinating, documenting and providing care for this patient excluding time spent in performance of separately billed services Admission and Anticipated Discharge Date Admission Date: November 01, 2022 Subjective Patient seen and examined Reports feeling better today Denied any cough, chest pain, SOB Reports generalized weakness especially in the lower extremities Reports paraesthesia/neuropathy which is chronic usually in feet as well as left thigh Reports leg edema is still present but improving Denied any nausea, vomiting, abd pain, melena, hematochezia Denied dysuria, freq, urgency, hematuria Physical Exam Constitutional: + well hydrated; no acute distress Eyes: PERRL, conjunctivae normal, anicteric sclerae ENMT: external ear and nose normal, oropharynx normal Respiratory: normal respiratory effort, lungs clear to auscultation Cardiovascular: Rate/Rhythm: regular rate and regular rhythm S1 S2 Gastrointestinal (Abdomen): normal bowel sounds, soft, nontender, no hepatosplenomegaly Musculoskeletal: +bilateral pedal edema Neurologic: PERRL, EOMI, accommodation nl, no face palsy, no dysarthria Psychiatric: A+Ox3, euthymic affect Results & Data Results & Data Vital Signs (Past 12 Hours) Vital Signs Temp Pulse Pulse Pulse Resp BP Pulse Ox 11/08/22 07:29 36.7 C 82 18 148/75 H 93 11/08/22 07:09 77 11/08/22 03:15 36.7 C 87 20 129/68 95 11/07/22 23:11 37.4 C 74 18 102/59 L 94 O2 Del Method 11/08/22 07:29 Room Air 11/08/22 07:09 11/08/22 03:15 Room Air 11/07/22 23:11 Room Air Laboratory Results Abnormal lab results 11/08/22 11/08/22 Range/Units 07:46 08:22 RBC 2.95 L (4.20-5.40) M/uL Hgb 8.7 L (12.0-16.0) g/dl Hct 27.4 L (37.0-47.0) % MCHC 31.8 L (32.0-36.0) g/dL RDW Std Deviation 50.6 H (36.4-46.3) fL RDW Coeff of Mario 15.0 H (11.5-14.5) % MPV 9.3 L (9.4-12.4) fL Lymph # (Auto) 1.17 L (1.20-3.40) K/uL [place] # (Auto) 0.97 H (0.11-0.59) K/uL Immature Gran # (Auto) 0.35 H (0.01-0.20) K/uL BUN 33 H (6-23) mg/dl Creatinine 2.01 H (0.6-1.2) mg/dl Glucose 101 H (70-99(Fasting)) mg/dl Calcium 8.3 L (8.6-10.3) mg/dl AST 95 H (13-39) U/L ALT 72 H (7-52) U/L Total Protein 5.3 L (6.0-8.3) gm/dl Albumin 2.8 L (3.4-5.0) gm/dl
--- NOTE | 2022-11-08 10:21 | Nephrology Progress Note ---
Date of Service November 08, 2022 Assessment & Plan Admission and Anticipated Discharge Date Admission Date: November 01, 2022 Subjective Assessment & Plan (1) Acute kidney injury superimposed on CKD: Plan: nonoliguric DENNIS on CKD 3. 1.6 baseline creatinine and is back to baseline now. She presented with creatinine 3 on 10/31.In setting of diarrheal illness (? from lasix versus e coli), acute DVT, concern for anemia -cont to hold losartan -ok w/ other antihypertensives. BP is now much better. She does have edema but Creat went up even more. Stop lasix. Subjective no acute interval events.made 1800 ml urine denies sob, n/v, ongoing diarrhea. Review of Systems Review of Systems: All systems reviewed & are unremarkable except as noted in Subjective Physical Exam Constitutional: well developed, well nourished, + frail appearing, + disheveled (belongings smell of cat urine) and cooperative; no acute distress Eyes: EOM intact bilaterally ENMT: Ears: no external ear abnormality Nose: no external nose abnormality Mouth: + dry oral mucous membranes Neck: no nuchal rigidity Respiratory: normal respiratory effort Auscultation: + diminished lung sounds (adrian R side) and + crackles Cardiovascular: Rate/Rhythm: regular rate and regular rhythm Gastrointestinal (Abdomen): Inspection/Auscultation: normal bowel sounds Percussion/Palpation: abdomen soft; abdomen nontender Musculoskeletal: Extremities: 1+ edema left and 1+ right Skin: no rashes, warm and dry Psychiatric: Orientation: alert, oriented to person and oriented to place Speech: normal rate/rhythm/volume of speech Results & Data Vital Signs (Past 12 Hours) Vital Signs Temp Pulse Pulse Pulse Resp BP Pulse Ox 11/08/22 07:29 36.7 C 82 18 148/75 H 93 11/08/22 07:09 77 11/08/22 03:15 36.7 C 87 20 129/68 95 11/07/22 23:11 37.4 C 74 18 102/59 L 94 O2 Del Method 11/08/22 07:29 Room Air 11/08/22 07:09 11/08/22 03:15 Room Air 11/07/22 23:11 Room Air
[2022-11-08] MEDS: APIXABAN 5 MG TABLET PO SCH ×2 (13:11→20:53)
[2022-11-08] MEDS: HYDROCODONE/ACETAMOPHEN 5/325MG TAB PO PRN (20:51)
[2022-11-08] MEDS: rOPINIRole HCL 2 MG TABLET PO SCH (20:51)
[2022-11-08] MEDS: tiZANidine HCL 4 MG TABLET PO SCH (20:52)
[2022-11-08] MEDS: ESCITALOPRAM OXALATE 20 MG TAB PO SCH (20:54)
[2022-11-08] MEDS: FAMOTIDINE 10 MG TABLET PO SCH (20:55)
[2022-11-09] MEDS: LEVOTHYROXINE SODIUM 75 MCG TABLET PO SCH (06:15)
[2022-11-09 06:28] LABS: Hematocrit (blood only) 26.1 % (37.0-47.0); Hemoglobin 8.1 g/dl (12.0-16.0); Mean Corpuscular Volume 93.5 fL (80.0-100.0); Mean Platelet Volume 9.5 fL (9.4-12.4); Platelet Count 229 K/uL (130-400); RDW Coefficient of Variation 14.9 % (11.5-14.5); RDW Standard Deviation 50.8 fL (36.4-46.3); Red Blood Count 2.79 M/uL (4.20-5.40); White Blood Count 9.22 K/ul (4.8-10.8)
[2022-11-09 06:42] LABS: BUN Creatinine Ratio 15.9 (10-20); Calcium 8.2 mg/dl (8.6-10.3); Creatinine Clr Calc Pharmacy 23.3 ml/min; Est GFR (African American) 27.7 ml/min; Est GFR (Non-African American) 23.9 ml/min; Magnesium 2.1 mg/dl (1.7-2.4); Phosphorus 3.7 mg/dl (2.5-4.9); Potassium 3.7 mmol/L (3.5-5.1)
[2022-11-09 06:51] LABS: Partial Thromboplastin Time 27.4 Seconds (21.0-31.0)
[2022-11-09] MEDS: BRIMONIDINE TARTRATE 0.2% 5ML OP SCH ×2 (10:08→21:50)
[2022-11-09] MEDS: FOLIC ACID 1 MG TAB PO SCH (10:09)
[2022-11-09] MEDS: carvediloL 3.125 MG TAB PO SCH ×2 (10:09→21:46)
[2022-11-09] MEDS: GABAPENTIN 600 MG TAB PO SCH ×3 (10:10→21:45)
[2022-11-09] MEDS: hydrALAZINE TAB 50 MG TAB PO SCH ×3 (10:10→21:48)
[2022-11-09] MEDS: NIFEdipine EXTENDED REL 30 MG TABCR PO SCH (10:12)
[2022-11-09] MEDS: PANTOprazole 40 MG TAB PO SCH ×2 (10:12→21:49)
[2022-11-09] MEDS: LEFLUNOMIDE 10 MG TAB PO SCH (10:12)
[2022-11-09] MEDS: TIMOLOL MALEATE 0.5% OP SOLN 5 ML BTL OP SCH ×2 (10:12→21:46)
[2022-11-09] MEDS: predniSONE 5 MG TAB PO SCH (10:12)
[2022-11-09] MEDS: HYDROCODONE/ACETAMOPHEN 5/325MG TAB PO PRN ×2 (10:18→21:52)
--- NOTE | 2022-11-09 10:41 | Hospitalist Progress Note ---
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 Patient presented with BLE swelling. US Doppler positive for RLE DVT. VQ scan low probability of PE. Was on Heparin Drip initially, now transitioned to eliquis since 11/07/22. Possible GI Bleed Acute on chronic anemia: Baseline hemoglobin appears around 9-10. Admitting hemoglobin of 9, dropped to 8.1 next day. FOBT was reported to be positive, taken prior to resuming heparin drip due to aforementioned hemoglobin drop noted. Got 1 Unit PRBC. GI evaluation noted Continue PPI twice daily and avoid NSAIDs. Patient to follow up with GI outpatient for scopes. Continue to monitor Hb Acute kidney injury superimposed on chronic kidney disease stage III: Baseline creatinine around 1.5-1.6 Admitting creatinine of 2.9. Nephrology on board Cr improved to 1.46 and then trended up. Cr was 2.01 on 11/08/22. Currently 1.95 today Continue to hold ARB and lasix for now Bilateral leg Edema: Patient with complaint of increased lower extremity edema, recently prescribed Lasix from PCP office for last 1 week HOME DAY CARE PROVIDER BNP 93. 3/ ECHO w/ EF of 65-70%, grade I diastolic dysfunction. 11/02/22ECHO w/ ef of 65-70%, mild S, mild MR/TR Leg edema could be due to DENNIS vs diastolic heart failure exacerbation Nephro recs noted Lower extremity DVT likely contributory as well Acute UTI: Urine culture grew proteus Completed 7 days of IV ceftriaxone Weakness: Patient reported increasing weakness for 2 days HOME DAY CARE PROVIDER -she was sitting in her chair and was not able to get up. She was covered in urine and feces when she was brought to the ED. CPK level minimally elevated, no rhabdomyolysis. PT/OT eval noted CM working on placement Diarrhea: For about a week HOME DAY CARE PROVIDER Stool PCR was positive for EPEC. Continue supportive care Last BM yesterday was formed per flowsheet Mild elevated troponin: Likely from her acute illness and DENNIS over CKD. Patient with no chest pain. EKG with no acute ST or T changes. Hypertension: Continue Coreg, nifedipine. Continue to hold irbesartan Continue hydralazine 50mg TID per Nephro Rheumatoid arthritis: Home leflunomide and prednisone were held on admission due to infection Continue home prednisone She has multiple arthritic joints and gets shots at her hips and knees at rheumatology office. Continue follow up with Primary Rheum outpatient Depression: On Lexapro Restless leg syndrome: On ropinirole DVT prophylaxis: Francois Patient's brother [place] and [id number] Kristine [[phone]] I spent a total of 45 minutes coordinating, documenting and providing care for t his patient excluding time spent in performance of separately billed services Admission and Anticipated Discharge Date Admission Date: November 01, 2022 Subjective Patient seen and examined Denied any cough, chest pain, SOB Reports generalized weakness especially in the lower extremities Reports paraesthesia/neuropathy which is chronic usually in feet as well as left thigh Still has some edema Denied any nausea, vomiting, abd pain, melena, hematochezia Denied dysuria, freq, urgency, hematuria Physical Exam Constitutional: + well hydrated; no acute distress Eyes: PERRL, conjunctivae normal, anicteric sclerae ENMT: external ear and nose normal, oropharynx normal Respiratory: normal respiratory effort, lungs clear to auscultation Cardiovascular: Rate/Rhythm: regular rate and regular rhythm S1 S2 Gastrointestinal (Abdomen): normal bowel sounds, soft, nontender, no hepatosplenomegaly Musculoskeletal: +pedal edema Neurologic: PERRL, EOMI, accommodation nl, no face palsy, no dysarthria Psychiatric: A+Ox3, euthymic affect Results & Data Results & Data Vital Signs (Past 12 Hours) Vital Signs Temp Pulse Pulse Pulse Resp BP Pulse Ox 11/09/22 08:00 81 11/09/22 08:23 36.9 C 79 18 153/78 H 93 11/09/22 04:02 37.1 C 82 20 147/72 H 93 11/09/22 00:00 71 11/08/22 23:08 37.2 C 69 18 96/59 L 97 O2 Del Method 11/09/22 08:00 11/09/22 08:23 Room Air 11/09/22 04:02 Room Air 11/09/22 00:00 11/08/22 23:08 Room Air Laboratory Results Abnormal lab results 11/09/22 11/09/22 Range/Units 06:01 06:01 RBC 2.79 L (4.20-5.40) M/uL Hgb 8.1 L (12.0-16.0) g/dl Hct 26.1 L (37.0-47.0) % MCHC 31.0 L (32.0-36.0) g/dL RDW Std Deviation 50.8 H (36.4-46.3) fL RDW Coeff of Mario 14.9 H (11.5-14.5) % BUN 31 H (6-23) mg/dl Creatinine 1.95 H (0.6-1.2) mg/dl Calcium 8.2 L (8.6-10.3) mg/dl
--- NOTE | 2022-11-09 11:14 | Nephrology Progress Note ---
Date of Service November 09, 2022 Assessment & Plan Admission and Anticipated Discharge Date Admission Date: November 01, 2022 Subjective Assessment & Plan (1) Acute kidney injury superimposed on CKD: Plan: nonoliguric DENNIS on CKD 3. 1.6 baseline creatinine and is back to baseline now. She presented with creatinine 3 on 10/31.In setting of diarrheal illness (? from lasix versus e coli), acute DVT, concern for anemia -cont to hold losartan -ok w/ other antihypertensives. BP is now much better. She does have edemaCreat went up with lasix so for now no lasix. Does not mean she cant have it. Hold DARREL/ARB for now. She might need a slightly higher BP goal. Subjective no acute interval events.making urine. denies sob, n/v, ongoing diarrhea. Review of Systems Review of Systems: All systems reviewed & are unremarkable except as noted in Subjective Physical Exam Constitutional: well developed, well nourished, + frail appearing, + disheveled (belongings smell of cat urine) and cooperative; no acute distress Eyes: EOM intact bilaterally ENMT: Ears: no external ear abnormality Nose: no external nose abnormality Mouth: + dry oral mucous membranes Neck: no nuchal rigidity Respiratory: normal respiratory effort Auscultation: + diminished lung sounds (adrian R side) and + crackles Cardiovascular: Rate/Rhythm: regular rate and regular rhythm Gastrointestinal (Abdomen): Inspection/Auscultation: normal bowel sounds Percussion/Palpation: abdomen soft; abdomen nontender Musculoskeletal: Extremities: 1+ edema left and 1+ right Skin: no rashes, warm and dry Psychiatric: Orientation: alert, oriented to person and oriented to place Speech: normal rate/rhythm/volume of speech Results & Data Vital Signs (Past 12 Hours) Vital Signs Temp Pulse Pulse Pulse Resp BP Pulse Ox 11/09/22 08:00 81 11/09/22 08:23 36.9 C 79 18 153/78 H 93 11/09/22 04:02 37.1 C 82 20 147/72 H 93 11/09/22 00:00 71 O2 Del Method 11/09/22 08:00 11/09/22 08:23 Room Air 11/09/22 04:02 Room Air 11/09/22 00:00
[2022-11-09] MEDS: hydrOXYzine HCl 25 MG TAB PO SCH ×3 (12:41→21:48)
[2022-11-09] MEDS: APIXABAN 5 MG TABLET PO SCH ×2 (12:42→23:46)
[2022-11-09] MEDS: rOPINIRole HCL 2 MG TABLET PO SCH (21:49)
[2022-11-09] MEDS: ESCITALOPRAM OXALATE 20 MG TAB PO SCH (21:49)
[2022-11-09] MEDS: tiZANidine HCL 4 MG TABLET PO SCH (21:49)
[2022-11-09] MEDS: FAMOTIDINE 10 MG TABLET PO SCH (21:49)
[2022-11-10] MEDS ORDERED: MICONAZOLE NITRATE POWDER 85 GM EXT PRN (02:49)
[2022-11-10] MEDS: LEVOTHYROXINE SODIUM 75 MCG TABLET PO SCH (06:28)
[2022-11-10] MEDS: hydrALAZINE TAB 50 MG TAB PO SCH ×3 (08:35→19:46)
[2022-11-10] MEDS: carvediloL 3.125 MG TAB PO SCH (08:35)
[2022-11-10] MEDS: hydrOXYzine HCl 25 MG TAB PO SCH ×3 (08:38→19:46)
[2022-11-10] MEDS: PANTOprazole 40 MG TAB PO SCH ×2 (08:39→19:45)
[2022-11-10] MEDS: APIXABAN 5 MG TABLET PO SCH ×2 (08:39→19:45)
[2022-11-10] MEDS: NIFEdipine EXTENDED REL 30 MG TABCR PO SCH (08:39)
[2022-11-10] MEDS: GABAPENTIN 600 MG TAB PO SCH ×3 (08:40→19:46)
[2022-11-10] MEDS: FOLIC ACID 1 MG TAB PO SCH (08:40)
[2022-11-10] MEDS: LEFLUNOMIDE 10 MG TAB PO SCH (08:40)
[2022-11-10] MEDS: predniSONE 5 MG TAB PO SCH (08:40)
[2022-11-10] MEDS: TIMOLOL MALEATE 0.5% OP SOLN 5 ML BTL OP SCH ×2 (08:41→19:46)
[2022-11-10] MEDS: BRIMONIDINE TARTRATE 0.2% 5ML OP SCH ×2 (08:43→19:46)
[2022-11-10 09:11] LABS: Basophils % (auto) 1.1 %; Eosinophils # (auto) 0.46 K/uL (0.00-0.50); Eosinophils % (auto) 4.9 %; Hematocrit (blood only) 27.8 % (37.0-47.0); Hemoglobin 8.9 g/dl (12.0-16.0); Immature Granulocytes # (auto) 0.13 K/uL (0.01-0.20); Immature Granulocytes % (auto) 1.4 %; Lymphocytes # (auto) 1.96 K/uL (1.20-3.40); Mean Corpuscular Hemoglobin 29.8 pg (25.0-34.0); Mean Platelet Volume 9.5 fL (9.4-12.4); Monocytes # (auto) 1.19 K/uL (0.11-0.59); Monocytes % (auto) 12.7 %; Neutrophils # (auto) 5.51 K/uL (1.40-6.50); Neutrophils % (auto) 58.9 %; Platelet Count 297 K/uL (130-400); RDW Coefficient of Variation 14.9 % (11.5-14.5); RDW Standard Deviation 51.8 fL (36.4-46.3); Red Blood Count 2.99 M/uL (4.20-5.40); White Blood Count 9.35 K/ul (4.8-10.8)
[2022-11-10 09:16] LABS: BUN Creatinine Ratio 17.7 (10-20); Calcium 8.6 mg/dl (8.6-10.3); Creatinine Clr Calc Pharmacy 24.6 ml/min; Est GFR (African American) 30.3 ml/min; Est GFR (Non-African American) 26.1 ml/min; Potassium 3.9 mmol/L (3.5-5.1)
--- NOTE | 2022-11-10 10:16 | Hospitalist Progress Note ---
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 Patient presented with BLE swelling. US Doppler positive for RLE DVT. VQ scan low probability of PE. Was on Heparin Drip initially, now transitioned to eliquis since 11/07/22. Possible GI Bleed Acute on chronic anemia: Baseline hemoglobin appears around 9-10. Admitting hemoglobin of 9, dropped to 8.1 next day. FOBT was reported to be positive, taken prior to resuming heparin drip due to aforementioned hemoglobin drop noted. Got 1 Unit PRBC. GI evaluation noted Continue PPI twice daily and avoid NSAIDs. Patient to follow up with GI outpatient for scopes. Hb remains stable Acute kidney injury superimposed on chronic kidney disease stage III: Baseline creatinine around 1.5-1.6 Admitting creatinine of 2.9. Cr improved to 1.46 and then trended up. Cr was 2.01 on 11/08/22. Currently 1.81 today Discussed with Mash Processing Operator Dr Nelson today Continue to hold ARB and lasix for now Bilateral leg Edema: Patient with complaint of increased lower extremity edema, recently prescribed Lasix from PCP office for last 1 week CAMP PROGRAM DIRECTOR BNP 93. 3/ ECHO w/ EF of 65-70%, grade I diastolic dysfunction. 11/02/22ECHO w/ ef of 65-70%, mild S, mild MR/TR Leg edema could be due to DENNIS vs diastolic heart failure exacerbation Nephro recs noted Lower extremity DVT likely contributory as well Acute UTI: Urine culture grew proteus Completed 7 days of IV ceftriaxone Weakness: Patient reported increasing weakness for 2 days CAMP PROGRAM DIRECTOR -she was sitting in her chair and was not able to get up. She was covered in urine and feces when she was brought to the ED. CPK level minimally elevated, no rhabdomyolysis. PT/OT eval noted CM working on placement Diarrhea: For about a week CAMP PROGRAM DIRECTOR Stool PCR was positive for EPEC. Continue supportive care Last BM yesterday was formed per flowsheet Mild elevated troponin: Likely from her acute illness and DENNIS over CKD. Patient with no chest pain. EKG with no acute ST or T changes. Hypertension: Continue nifedipine. Continue to hold irbesartan Continue hydralazine 50mg TID and Coreg increased to 6.25mg bid per Nephrology Rheumatoid arthritis: Home leflunomide and prednisone were held on admission due to infection Continue home prednisone She has multiple arthritic joints and gets shots at her hips and knees at rheumatology office. Continue follow up with Primary Rheum outpatient Depression: On Lexapro Restless leg syndrome: On ropinirole I called brother and sister in law and updated them DVT prophylaxis: Francois Patient's brother [place] and [id number] Kristine [[phone]] I spent a total of 40 minutes coordinating, documenting and providing care for this patient excluding time spent in performance of separately billed services Admission and Anticipated Discharge Date Admission Date: November 01, 2022 Subjective Patient seen and examined Denied any cough, chest pain, SOB Reports generalized weakness especially in the lower extremities Reports chronic paraesthesia/neuropathy in LE Denied any nausea, vomiting, abd pain, melena, hematochezia Denied dysuria, freq, urgency, hematuria Physical Exam Constitutional: + well hydrated; no acute distress Eyes: PERRL, conjunctivae normal, anicteric sclerae ENMT: external ear and nose normal, oropharynx normal Respiratory: normal respiratory effort, lungs clear to auscultation Cardiovascular: Rate/Rhythm: regular rate and regular rhythm S1 S2 Gastrointestinal (Abdomen): normal bowel sounds, soft, nontender, no hepatosplenomegaly Musculoskeletal: +pedal edema Neurologic: PERRL, EOMI, accommodation nl, no face palsy, no dysarthria Psychiatric: A+Ox3, euthymic affect Results & Data Results & Data Vital Signs (Past 12 Hours) Vital Signs Temp Pulse Pulse Pulse Resp BP BP 11/10/22 07:38 36.5 C 84 20 196/93 H 11/10/22 07:33 83 11/10/22 04:00 36.7 C 79 18 152/76 H 11/10/22 01:20 84 11/09/22 23:00 37.1 C 69 18 107/68 Pulse Ox O2 Del Method 11/10/22 07:38 96 Room Air 11/10/22 07:33 11/10/22 04:00 94 Room Air 11/10/22 01:20 11/09/22 23:00 94 Room Air Laboratory Results Abnormal lab results 11/10/22 11/10/22 Range/Units 08:15 08:15 RBC 2.99 L (4.20-5.40) M/uL Hgb 8.9 L (12.0-16.0) g/dl Hct 27.8 L (37.0-47.0) % RDW Std Deviation 51.8 H (36.4-46.3) fL RDW Coeff of Mario 14.9 H (11.5-14.5) % [place] # (Auto) 1.19 H (0.11-0.59) K/uL Ch[place] 108 H (98-107) mmol/L BUN 32 H (6-23) mg/dl Creatinine 1.81 H (0.6-1.2) mg/dl
[2022-11-10] MEDS: carvediloL 6.25 MG TAB PO SCH ×2 (10:47→19:45)
--- NOTE | 2022-11-10 14:46 | Nephrology Progress Note ---
Date of Service November 10, 2022 Assessment & Plan (1) Acute kidney injury superimposed on CKD: Plan: stage 1 nonoliguric DENNIS on CKD 3. 1.6 baseline creatinine. presents w/ creatinine 3 on 10/31, almost at basline now, - Bp better but still elevated, and she has got pedal edema, She has been very sensitive to diuretics with her renal function decling every time this is used. - Increase Co-reg to 6.25 BD -Continue to hold lasix, and Losartan (2) Acute UTI (urinary tract infection): Plan: f/u pending culture w/ GNR on ceftriaxone (3) Anemia: Admission and Anticipated Discharge Date Admission Date: November 01, 2022 Subjective Patient seen and examined Comfortable Review of Systems Review of Systems: All systems reviewed & are unremarkable except as noted in HPI & below Results & Data Vital Signs (Past 12 Hours) Vital Signs Temp Pulse Pulse Pulse Resp BP Pulse Ox 11/10/22 11:54 138/72 11/10/22 11:23 36.5 C 74 20 161/74 H 96 11/10/22 07:38 36.5 C 84 20 196/93 H 96 11/10/22 07:33 83 11/10/22 04:00 36.7 C 79 18 152/76 H 94 O2 Del Method 11/10/22 11:54 11/10/22 11:23 Room Air 11/10/22 07:38 Room Air 11/10/22 07:33 11/10/22 04:00 Room Air Laboratory Results 11/10/22 08:15 11/10/22 08:15
[2022-11-10] MEDS ORDERED: Nursing to Pharmacy Communication SCH (19:15)
[2022-11-10] MEDS: tiZANidine HCL 4 MG TABLET PO SCH (19:45)
[2022-11-10] MEDS: FAMOTIDINE 10 MG TABLET PO SCH (19:45)
[2022-11-10] MEDS: rOPINIRole HCL 2 MG TABLET PO SCH (19:46)
[2022-11-10] MEDS: ESCITALOPRAM OXALATE 20 MG TAB PO SCH (19:46)
[2022-11-10] MEDS: DICLOFENAC SOD 1% GEL 100 GM TUBE EXT PRN (19:48)
[2022-11-10] MEDS: HYDROCODONE/ACETAMOPHEN 5/325MG TAB PO PRN (19:50)
[2022-11-11] MEDS: LEVOTHYROXINE SODIUM 75 MCG TABLET PO SCH (05:58)
[2022-11-11 07:52] LABS: BUN Creatinine Ratio 19.3 (10-20); Calcium 8.1 mg/dl (8.6-10.3); Creatinine Clr Calc Pharmacy 25.9 ml/min; Est GFR (African American) 31.3 ml/min
[2022-11-11] MEDS: hydrALAZINE TAB 50 MG TAB PO SCH ×3 (09:15→20:08)
[2022-11-11] MEDS: PANTOprazole 40 MG TAB PO SCH ×2 (09:15→20:08)
[2022-11-11] MEDS: carvediloL 6.25 MG TAB PO SCH ×2 (09:15→20:06)
[2022-11-11] MEDS: BRIMONIDINE TARTRATE 0.2% 5ML OP SCH ×2 (09:15→20:09)
[2022-11-11] MEDS: FOLIC ACID 1 MG TAB PO SCH (09:15)
[2022-11-11] MEDS: TIMOLOL MALEATE 0.5% OP SOLN 5 ML BTL OP SCH ×2 (09:15→20:09)
[2022-11-11] MEDS: GABAPENTIN 600 MG TAB PO SCH ×3 (09:15→20:07)
[2022-11-11] MEDS: hydrOXYzine HCl 25 MG TAB PO SCH ×3 (09:16→20:08)
[2022-11-11] MEDS: LEFLUNOMIDE 10 MG TAB PO SCH (09:16)
[2022-11-11] MEDS: predniSONE 5 MG TAB PO SCH (09:16)
[2022-11-11] MEDS: APIXABAN 5 MG TABLET PO SCH ×2 (09:16→20:06)
[2022-11-11] MEDS: NIFEdipine EXTENDED REL 30 MG TABCR PO SCH (09:16)
--- NOTE | 2022-11-11 11:00 | Hospitalist Progress Note ---
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 Patient presented with BLE swelling. US Doppler positive for RLE DVT. VQ scan low probability of PE. Was on Heparin Drip initially, now transitioned to eliquis since 11/07/22. Possible GI Bleed Acute on chronic anemia: Baseline hemoglobin appears around 9-10. Admitting hemoglobin of 9, dropped to 8.1 next day. FOBT was reported to be positive, taken prior to resuming heparin drip due to aforementioned hemoglobin drop noted. Got 1 Unit PRBC. GI evaluation noted Continue PPI twice daily and avoid NSAIDs. Patient to follow up with GI outpatient for scopes. Hb remains stable Acute kidney injury superimposed on chronic kidney disease stage III: Baseline creatinine around 1.5-1.6 Admitting creatinine of 2.9. Cr improved to 1.46 and then trended up. Cr was 2.01 on 11/08/22. 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 3/ ECHO w/ EF of 65-70%, grade I diastolic dysfunction. 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 She was covered in urine and feces when she was brought to the ED. CPK level minimally elevated, no rhabdomyolysis. 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 Continue supportive care Resolved per patient Mild elevated troponin: Likely from her acute illness and DENNIS over CKD. Patient with no chest pain. EKG with no acute ST or T changes. Hypertension: Continue nifedipine. Continue to hold irbesartan Continue hydralazine 50mg TID and Increased Coreg 6.25mg bid Rheumatoid arthritis: Home leflunomide and prednisone were held on admission due to infection Continue home prednisone She has multiple arthritic joints and gets shots at her hips and knees at rheumatology office. Continue follow up with Primary Rheum outpatient Depression: On Lexapro Restless leg syndrome: On ropinirole DVT prophylaxis: Francois Patient's brother [place] and [id number] Kristine [[phone]] I spent a total of 35 minutes coordinating, documenting and providing care for this patient excluding time spent in performance of separately billed services Admission and Anticipated Discharge Date Admission Date: November 01, 2022 Subjective Patient seen and examined Reports weakness lower extremities, joint pains Reports chronic paraesthesia/neuropathy in LE Denied any nausea, vomiting, abd pain, diarrhea Denied cough, chest pain, SOB Denied dysuria, freq, urgency, hematuria Physical Exam Constitutional: + well hydrated; no acute distress Eyes: PERRL, conjunctivae normal, anicteric sclerae ENMT: external ear and nose normal, oropharynx normal Respiratory: normal respiratory effort, lungs clear to auscultation Cardiovascular: Rate/Rhythm: regular rate and regular rhythm S1 S2 Gastrointestinal (Abdomen): normal bowel sounds, soft, nontender, no hepatosplenomegaly Musculoskeletal: +pedal edema Neurologic: PERRL, EOMI, accommodation nl, no face palsy, no dysarthria Psychiatric: A+Ox3, euthymic affect Results & Data Results & Data Vital Signs (Past 12 Hours) Vital Signs Temp Pulse Pulse Pulse Resp BP Pulse Ox 11/11/22 09:15 11/11/22 09:25 36.6 C 73 17 170/98 H 95 11/11/22 07:27 83 11/11/22 03:00 36.5 C 70 18 146/79 H 95 11/10/22 23:03 36.4 C L 68 18 101/63 93 O2 Del Method 11/11/22 09:15 Room Air 09/02/23 09:25 Room Air 11/11/22 07:27 11/11/22 03:00 Room Air 11/10/22 23:03 Room Air Laboratory Results Abnormal lab results 11/11/22 Range/Units 05:43 Chloride 109 H (98-107) mmol/L BUN 34 H (6-23) mg/dl Creatinine 1.76 H (0.6-1.2) mg/dl Calcium 8.1 L (8.6-10.3) mg/dl
--- NOTE | 2022-11-11 11:38 | Nephrology Progress Note ---
Date of Service November 11, 2022 Assessment & Plan (1) Acute kidney injury superimposed on CKD: Plan: stage 1 nonoliguric DENNIS on CKD 3. 1.6 baseline creatinine. presented w/ creatinine 3 on 10/31, almost at baseline now and w/ labile BP; also will need some low dose diuretic as well as conservative strategies to manage edema -cont coreg 6.25 mg bid, nifedipine 90 mg daily, hydralazine 50 mg tid -for now hold irbesartan or other ARB > favor lasix 40 mg po today x 1 and 40 mg po MWF -daily bmp while in house -continue compression stockings and leg elevation Admission and Anticipated Discharge Date Admission Date: November 01, 2022 Subjective no acute interval events. no c/o pain, N, uncontrolled swelling, sob. Review of Systems Review of Systems: All systems reviewed & are unremarkable except as noted in Subjective Physical Exam Constitutional: well developed, well nourished, + frail appearing and cooperative; no acute distress Eyes: EOM intact bilaterally ENMT: Ears: no external ear abnormality Nose: no external nose abnormality Mouth: + dry oral mucous membranes Neck: no nuchal rigidity Respiratory: normal respiratory effort Auscultation: + diminished lung sounds (adrian R side) Cardiovascular: Rate/Rhythm: regular rate and regular rhythm Extremities: + edema (2+ pedal trace; trace distal BLE; BLE in TEDS) Gastrointestinal (Abdomen): Inspection/Auscultation: normal bowel sounds Percussion/Palpation: abdomen soft; abdomen nontender Musculoskeletal: Extremities: strength 5/5 throughout Skin: no rashes, warm and dry Psychiatric: Orientation: alert, oriented to person and oriented to place Speech: normal rate/rhythm/volume of speech Results & Data Vital Signs (Past 12 Hours) Vital Signs Temp Pulse Pulse Pulse Resp BP Pulse Ox 11/11/22 09:15 11/11/22 09:25 36.6 C 73 17 170/98 H 95 11/11/22 07:27 83 11/11/22 03:00 36.5 C 70 18 146/79 H 95 O2 Del Method 11/11/22 09:15 Room Air 11/11/22 09:25 Room Air 11/11/22 07:27 11/11/22 03:00 Room Air Laboratory Results 11/10/22 08:15 11/11/22 05:43
[2022-11-11] MEDS ORDERED: FUROSEMIDE 40 MG TAB PO ONE (13:18)
[2022-11-11] MEDS: HYDROCODONE/ACETAMOPHEN 5/325MG TAB PO PRN (20:05)
[2022-11-11] MEDS: ESCITALOPRAM OXALATE 20 MG TAB PO SCH (20:07)
[2022-11-11] MEDS: FAMOTIDINE 10 MG TABLET PO SCH (20:07)
[2022-11-11] MEDS: tiZANidine HCL 4 MG TABLET PO SCH (20:08)
[2022-11-11] MEDS: rOPINIRole HCL 2 MG TABLET PO SCH (20:08)
[2022-11-12] MEDS: LEVOTHYROXINE SODIUM 75 MCG TABLET PO SCH (05:36)
[2022-11-12 08:02] LABS: BUN Creatinine Ratio 19.2 (10-20); Calcium 7.9 mg/dl (8.6-10.3); Creatinine Clr Calc Pharmacy 23.5 ml/min; Est GFR (Non-African American) 24.2 ml/min
[2022-11-12] MEDS: hydrALAZINE TAB 50 MG TAB PO SCH ×3 (09:20→20:16)
[2022-11-12] MEDS: NIFEdipine EXTENDED REL 30 MG TABCR PO SCH (09:21)
[2022-11-12] MEDS: PANTOprazole 40 MG TAB PO SCH ×2 (09:21→20:15)
[2022-11-12] MEDS: GABAPENTIN 600 MG TAB PO SCH ×3 (09:21→20:17)
[2022-11-12] MEDS: FOLIC ACID 1 MG TAB PO SCH (09:21)
[2022-11-12] MEDS: hydrOXYzine HCl 25 MG TAB PO SCH ×3 (09:21→20:16)
[2022-11-12] MEDS: TIMOLOL MALEATE 0.5% OP SOLN 5 ML BTL OP SCH ×2 (09:21→20:17)
[2022-11-12] MEDS: predniSONE 5 MG TAB PO SCH (09:21)
[2022-11-12] MEDS: LEFLUNOMIDE 10 MG TAB PO SCH (09:21)
[2022-11-12] MEDS: carvediloL 6.25 MG TAB PO SCH ×2 (09:21→20:15)
[2022-11-12] MEDS: APIXABAN 5 MG TABLET PO SCH ×2 (09:21→20:16)
[2022-11-12] MEDS: BRIMONIDINE TARTRATE 0.2% 5ML OP SCH ×2 (09:22→20:17)
--- NOTE | 2022-11-12 09:57 | Hospitalist Progress Note ---
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 Patient presented with BLE swelling. US Doppler positive for RLE DVT. VQ scan low probability of PE. Was on Heparin Drip initially, now transitioned to eliquis since 11/07/22. Possible GI Bleed Acute on chronic anemia: Baseline hemoglobin appears around 9-10. Admitting hemoglobin of 9, dropped to 8.1 next day. FOBT was reported to be positive, taken prior to resuming heparin drip due to aforementioned hemoglobin drop noted. Got 1 Unit PRBC. GI evaluation noted Continue PPI twice daily and avoid NSAIDs. Patient to follow up with GI outpatient for scopes. Hb remains stable Acute kidney injury superimposed on chronic kidney disease stage III: Baseline creatinine around 1.5-1.6 Admitting creatinine of 2.9. Cr improved to 1.46 and then trended up. Cr was 2.01 on 11/08/22. Currently 1.93 today Nephrology on board Continue to hold ARB Lasix has been resumed for MWF per Nephrology Bilateral leg Edema: Patient with complaint of increased lower extremity edema, recently prescribed Lasix from PCP office for last 1 week BIOLOGIST BNP 93. 3 ECHO w/ EF of 65-70%, grade I diastolic dysfunction. 11/02/22ECHO w/ ef of 65-70%, mild S, mild MR/TR Leg edema could be due to DENNIS vs diastolic heart failure exacerbation Lower extremity DVT likely contributory as well Acute UTI: Urine culture grew proteus Completed 7 days of IV ceftriaxone Weakness: Patient reported increasing weakness for 2 days BIOLOGIST -she was sitting in her chair and was not able to get up. She was covered in urine and feces when she was brought to the ED. CPK level minimally elevated, no rhabdomyolysis. Lumbar spine MRI from last year noted worsening multilevel degenerative changes with up to severe canal stenosis and mod b/l neuroforaminal stenosis This likely explains her progressive amb dysfunction Reports she gets intermittent hip/back injections outpatient PT/OT anahy noted CM working on placement Diarrhea: For about a week BIOLOGIST Stool PCR was positive for EPEC. Continue supportive care Resolved per patient Mild elevated troponin: Likely from her acute illness and DENNIS over CKD. Patient with no chest pain. EKG with no acute ST or T changes. Hypertension: Continue nifedipine. Continue to hold irbesartan Continue hydralazine 50mg TID and Increased Coreg 6.25mg bid May need further adjustments based on trend Rheumatoid arthritis: Home leflunomide and prednisone were held on admission due to infection Continue home prednisone She has multiple arthritic joints and gets shots at her hips and knees at rheumatology office. Continue follow up with Primary Rheum outpatient Depression: On Lexapro Restless leg syndrome: On ropinirole DVT prophylaxis: Francois Patient's brother [place] and [id number] Kristine [[phone]] I spent a total of 40 minutes coordinating, documenting and providing care for this patient excluding time spent in performance of separately billed services Admission and Anticipated Discharge Date Admission Date: November 01, 2022 Subjective Patient seen and examined Denied any new complaints today Reports weakness lower extremities. States joint pains are better today Reports chronic paraesthesia/neuropathy in LE Physical Exam Constitutional: + well hydrated; no acute distress Eyes: PERRL, conjunctivae normal, anicteric sclerae ENMT: external ear and nose normal, oropharynx normal Respiratory: normal respiratory effort, lungs clear to auscultation Cardiovascular: Rate/Rhythm: regular rate and regular rhythm S1 S2 Gastrointestinal (Abdomen): normal bowel sounds, soft, nontender, no hepatosplenomegaly Musculoskeletal: +pedal edema Neurologic: PERRL, EOMI, accommodation nl, no face palsy, no dysarthria Psychiatric: A+Ox3, euthymic affect Results & Data Results & Data Vital Signs (Past 12 Hours) Vital Signs Temp Pulse Pulse Pulse Resp BP BP 11/12/22 08:41 37.0 C 82 17 180/98 H 217/87 H 11/12/22 08:24 11/12/22 06:51 76 11/12/22 03:22 36.5 C 75 18 159/84 H 11/11/22 23:38 36.6 C 74 18 118/70 11/11/22 23:37 78 Pulse Ox O2 Del Method 11/12/22 08:41 94 Room Air 11/12/22 08:24 Room Air 11/12/22 06:51 11/12/22 03:22 93 Room Air 11/11/22 23:38 95 Room Air 11/11/22 23:37 Laboratory Results Abnormal lab results 11/12/22 Range/Units 06:23 Chloride 108 H (98-107) mmol/L BUN 37 H (6-23) mg/dl Creatinine 1.93 H (0.6-1.2) mg/dl Calcium 7.9 L (8.6-10.3) mg/dl
[2022-11-12] MEDS: rOPINIRole HCL 2 MG TABLET PO SCH (20:15)
[2022-11-12] MEDS: ESCITALOPRAM OXALATE 20 MG TAB PO SCH (20:15)
[2022-11-12] MEDS: FAMOTIDINE 10 MG TABLET PO SCH (20:16)
[2022-11-12] MEDS: tiZANidine HCL 4 MG TABLET PO SCH (20:16)
[2022-11-13 06:28] LABS: BUN Creatinine Ratio 23.3 (10-20); Calcium 8.1 mg/dl (8.6-10.3); Est GFR (African American) 28.7 ml/min; Est GFR (Non-African American) 24.8 ml/min; Potassium 3.8 mmol/L (3.5-5.1)
[2022-11-13] MEDS: LEVOTHYROXINE SODIUM 75 MCG TABLET PO SCH (06:28)
[2022-11-13] MEDS: GABAPENTIN 600 MG TAB PO SCH ×3 (08:08→20:53)
[2022-11-13] MEDS: hydrALAZINE TAB 50 MG TAB PO SCH ×3 (08:09→20:51)
[2022-11-13] MEDS: PANTOprazole 40 MG TAB PO SCH ×2 (08:10→20:50)
[2022-11-13] MEDS: hydrOXYzine HCl 25 MG TAB PO SCH ×3 (08:10→21:00)
[2022-11-13] MEDS: APIXABAN 5 MG TABLET PO SCH ×2 (08:11→20:53)
[2022-11-13] MEDS: carvediloL 6.25 MG TAB PO SCH ×2 (08:11→20:54)
[2022-11-13] MEDS: predniSONE 5 MG TAB PO SCH (08:12)
[2022-11-13] MEDS: NIFEdipine EXTENDED REL 30 MG TABCR PO SCH (08:12)
[2022-11-13] MEDS: FOLIC ACID 1 MG TAB PO SCH (08:12)
[2022-11-13] MEDS: LEFLUNOMIDE 10 MG TAB PO SCH (08:12)
[2022-11-13] MEDS: BRIMONIDINE TARTRATE 0.2% 5ML OP SCH ×2 (08:13→20:55)
[2022-11-13] MEDS: TIMOLOL MALEATE 0.5% OP SOLN 5 ML BTL OP SCH ×2 (08:13→20:55)
[2022-11-13] MEDS ORDERED: FUROSEMIDE 40 MG TAB PO SCH (09:00)
--- NOTE | 2022-11-13 13:50 | Hospitalist Progress Note ---
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 Patient presented with BLE swelling. US Doppler positive for RLE DVT. VQ scan low probability of PE. Was on Heparin Drip initially, now transitioned to eliquis since 11/07/22. Possible GI Bleed Acute on chronic anemia: Baseline hemoglobin appears around 9-10. Admitting hemoglobin of 9, dropped to 8.1 next day. FOBT was reported to be positive, taken prior to resuming heparin drip due to aforementioned hemoglobin drop noted. Got 1 Unit PRBC. GI evaluation noted Continue PPI twice daily and avoid NSAIDs. Patient to follow up with GI outpatient for scopes. Hb remains stable Acute kidney injury superimposed on chronic kidney disease stage III: Baseline creatinine around 1.5-1.6 Admitting creatinine of 2.9. Cr improved to 1.46 and then trended up. Cr was 2.01 on 11/08/22. 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 3/ ECHO w/ EF of 65-70%, grade I diastolic dysfunction. 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 She was covered in urine and feces when she was brought to the ED. CPK level minimally elevated, no rhabdomyolysis. Lumbar spine MRI from last year noted worsening multilevel degenerative changes with up to severe canal stenosis and mod b/l neuroforaminal stenosis This likely explains her progressive amb dysfunction Reports she gets intermittent hip/back injections outpatient PT/OT anahy noted CM working on placement Diarrhea: For about a week WHEELCHAIR V[employer] DRIVER Stool PCR was positive for EPEC. Continue supportive care Resolved per patient Mild elevated troponin: Likely from her acute illness and DENNIS over CKD. Patient with no chest pain. EKG with no acute ST or T changes. Hypertension: Continue nifedipine. Continue to hold irbesartan Continue hydralazine 50mg TID and Increased Coreg 6.25mg bid May need further adjustments based on trend Rheumatoid arthritis: Home leflunomide and prednisone were held on admission due to infection Continue home prednisone She has multiple arthritic joints and gets shots at her hips and knees at rheumatology office. Continue follow up with Primary Rheum outpatient Depression: On Lexapro Restless leg syndrome: On ropinirole DVT prophylaxis: Francois Patient's brother [place] and [id number] Kristine [[phone]] I spent a total of 35 minutes coordinating, documenting and providing care for this patient excluding time spent in performance of separately billed services Admission and Anticipated Discharge Date Admission Date: November 01, 2022 Subjective Patient seen and examined Reports stomach upset today after drinking coffee with some milk Still has lower extremity weakness and chronic neuropathy Denied any new complaints Physical Exam Constitutional: + well hydrated; no acute distress Eyes: PERRL, conjunctivae normal, anicteric sclerae ENMT: external ear and nose normal, oropharynx normal Respiratory: normal respiratory effort, lungs clear to auscultation Cardiovascular: Rate/Rhythm: regular rate and regular rhythm S1 S2 Gastrointestinal (Abdomen): normal bowel sounds, soft, nontender, no hepatosplenomegaly Musculoskeletal: +pedal edema Neurologic: PERRL, EOMI, accommodation nl, no face palsy, no dysarthria Psychiatric: A+Ox3, euthymic affect Results & Data Results & Data Vital Signs (Past 12 Hours) Vital Signs Temp Pulse Resp BP Pulse Ox O2 Del Method 11/13/22 07:03 36.5 C 79 16 156/79 H 93 Room Air Laboratory Results Abnormal lab results 11/13/22 Range/Units 05:37 Chloride 109 H (98-107) mmol/L BUN 44 H (6-23) mg/dl Creatinine 1.89 H (0.6-1.2) mg/dl BUN/Creatinine Ratio 23.3 H (10-20) Calcium 8.1 L (8.6-10.3) mg/dl
[2022-11-13] MEDS: tiZANidine HCL 4 MG TABLET PO SCH (20:49)
[2022-11-13] MEDS: ESCITALOPRAM OXALATE 20 MG TAB PO SCH (20:50)
[2022-11-13] MEDS: rOPINIRole HCL 2 MG TABLET PO SCH (20:50)
[2022-11-13] MEDS: FAMOTIDINE 10 MG TABLET PO SCH (20:53)
[2022-11-13] MEDS: guaiFENesin/CODEINE 100MG/10MG 5ML UDC PO PRN (21:00)
[2022-11-13] MEDS: DICLOFENAC SOD 1% GEL 100 GM TUBE EXT PRN (21:00)
[2022-11-13] MEDS: HYDROCODONE/ACETAMOPHEN 5/325MG TAB PO PRN (21:07)
[2022-11-14 06:16] LABS: Hematocrit (blood only) 23.1 % (37.0-47.0); Hemoglobin 7.3 g/dl (12.0-16.0); Mean Corpuscular Hemoglobin 29.7 pg (25.0-34.0); Mean Corpuscular Hgb Conc 31.6 g/dL (32.0-36.0); Mean Corpuscular Volume 93.9 fL (80.0-100.0); Mean Platelet Volume 8.8 fL (9.4-12.4); Platelet Count 343 K/uL (130-400); RDW Coefficient of Variation 14.9 % (11.5-14.5); RDW Standard Deviation 51.1 fL (36.4-46.3); Red Blood Count 2.46 M/uL (4.20-5.40); White Blood Count 7.08 K/ul (4.8-10.8)
[2022-11-14] MEDS: LEVOTHYROXINE SODIUM 75 MCG TABLET PO SCH (06:18)
[2022-11-14 06:19] LABS: BUN Creatinine Ratio 21.8 (10-20); Calcium 7.9 mg/dl (8.6-10.3); Creatinine Clr Calc Pharmacy 21.5 ml/min; Est GFR (African American) 25.2 ml/min; Est GFR (Non-African American) 21.7 ml/min; Potassium 3.5 mmol/L (3.5-5.1)
[2022-11-14] MEDS: DICLOFENAC SOD 1% GEL 100 GM TUBE EXT PRN (06:38)
[2022-11-14] MEDS: LEFLUNOMIDE 10 MG TAB PO SCH (07:41)
[2022-11-14] MEDS: hydrALAZINE TAB 50 MG TAB PO SCH ×3 (07:42→20:46)
[2022-11-14] MEDS: PANTOprazole 40 MG TAB PO SCH ×2 (07:42→20:46)
[2022-11-14] MEDS: GABAPENTIN 600 MG TAB PO SCH ×3 (07:42→20:46)
[2022-11-14] MEDS: carvediloL 6.25 MG TAB PO SCH ×2 (07:43→20:45)
[2022-11-14] MEDS: predniSONE 5 MG TAB PO SCH (07:43)
[2022-11-14] MEDS: TIMOLOL MALEATE 0.5% OP SOLN 5 ML BTL OP SCH ×2 (07:43→20:47)
[2022-11-14] MEDS: FOLIC ACID 1 MG TAB PO SCH (07:43)
[2022-11-14] MEDS: BRIMONIDINE TARTRATE 0.2% 5ML OP SCH ×2 (07:43→20:45)
[2022-11-14] MEDS: NIFEdipine EXTENDED REL 30 MG TABCR PO SCH (07:43)
[2022-11-14] MEDS: hydrOXYzine HCl 25 MG TAB PO SCH ×3 (07:45→20:49)
--- NOTE | 2022-11-14 08:10 | Nephrology Progress Note ---
Date of Service November 14, 2022 Assessment & Plan (1) Acute kidney injury superimposed on CKD: Plan: stage 1 nonoliguric DENNIS on CKD 3. 1.6 baseline creatinine. presented w/ creatinine 3 on 10/31, returned almost to baseline but then with one-time Lasix dose yesterday and 1 prior, creatinine bumped up again. Also with worsening anemia. Did not tolerate 40 mg MWF lasix >>>gave 250 mg NS >>>lower lasix to 20 mg MWF most likely but for now hold diuretic -cont coreg 6.25 mg bid, nifedipine 90 mg daily, hydralazine 50 mg tid -for now hold irbesartan or other ARB -daily bmp while in house -continue compression stockings and leg elevation care coordinated w/ Dr Armendariz (2) Anemia: Plan: t sat 6% on admission 200 mg venofer today test dose > if tolerated 3 day load thereafter Follow-up GI and primary service plans Admission and Anticipated Discharge Date Admission Date: November 01, 2022 Subjective Patient had a bloody bowel movement this afternoon. Eliquis on hold and GI reconsulted. Tolerated her first dose of Venofer today. Denies shortness of breath, edema, abdominal or musculoskeletal change in pain. NPO MN for possible procedure Review of Systems Review of Systems: All systems reviewed & are unremarkable except as noted in Subjective Physical Exam Constitutional: well developed, well nourished, + frail appearing and cooperative; no acute distress Eyes: EOM intact bilaterally ENMT: Ears: no external ear abnormality Nose: no external nose abnormality Mouth: + dry oral mucous membranes Neck: no nuchal rigidity Respiratory: normal respiratory effort Auscultation: lungs clear to auscultation bilaterally and + diminished lung sounds Cardiovascular: Rate/Rhythm: regular rate and regular rhythm Extremities: + edema ( trace distal BLE) Gastrointestinal (Abdomen): Inspection/Auscultation: normal bowel sounds P ercussion/Palpation: abdomen soft; abdomen nontender Musculoskeletal: Extremities: strength 5/5 throughout Skin: no rashes, warm and dry Psychiatric: Orientation: alert, oriented to person and oriented to place Speech: normal rate/rhythm/volume of speech Results & Data Vital Signs (Past 12 Hours) Vital Signs Temp Pulse Pulse Resp BP Pulse Ox O2 Del Method 11/14/22 07:31 36.5 C 72 18 138/82 96 Room Air 11/13/22 20:48 36.5 C 76 16 162/77 H 96 Room Air 11/13/22 20:10 36.7 C 78 18 151/76 H 97 Room Air Laboratory Results 11/14/22 05:47 11/14/22 05:47
[2022-11-14] MEDS ORDERED: SODIUM CHLORIDE 0.9% 500 ML IV SCH (08:15)
[2022-11-14] MEDS ORDERED: IRON SUCROSE 200 MG in 0.9 % SODIUM CHLORIDE 100 ML IV ONE (09:00)
[2022-11-14] MEDS ORDERED: APIXABAN 5 MG TABLET PO SCH (09:00)
--- NOTE | 2022-11-14 14:02 | Hospitalist Progress Note ---
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 Patient presented with BLE swelling. US Doppler positive for RLE DVT. VQ scan low probability of PE. Was on Heparin Drip initially, now transitioned to eliquis since 11/07/22. In view of Hb drop and bloody BM reported by RN this afternoon, eliquis is held pending GI eval Possible GI Bleed Acute on chronic anemia: Baseline hemoglobin appears around 9-10. Admitting hemoglobin of 9, dropped to 8.1 next day. FOBT was reported to be positive, taken prior to resuming heparin drip due to a forementioned hemoglobin drop noted. Got 1 Unit PRBC. GI had evaluated before and recommended outpatient follow up for scopes. Hb had been stable until this morning However in view of bloody BM reported by RN this afternoon and Hb drop to 7.3 this morning, will reconsult GI and hold eliquis for now Get CBC Got IV venofer this morning Acute kidney injury superimposed on chronic kidney disease stage III: Baseline creatinine around 1.5-1.6 Admitting creatinine of 2.9. Cr improved to 1.46 and then trended up. Cr was 2.01 on 11/08/22. Currently 2.11 today Lasix held. May need lower doses in the future Continue to hold ARB Nephrology on board Bilateral leg Edema: Patient with complaint of increased lower extremity edema, recently prescribed Lasix from PCP office for last 1 week PATIENT SERVICES SPECIALIST BNP 93. 3/ ECHO w/ EF of 65-70%, grade I diastolic dysfunction. 11/02/22ECHO w/ ef of 65-70%, mild S, mild MR/TR Leg edema could be due to DENNIS vs diastolic heart failure exacerbation Lower extremity DVT likely contributory as well Acute UTI: Urine culture grew proteus Completed 7 days of IV ceftriaxone Weakness: Patient reported increasing weakness for 2 days PATIENT SERVICES SPECIALIST -she was sitting in her chair and was not able to get up. She was covered in urine and feces when she was brought to the ED. CPK level minimally elevated, no rhabdomyolysis. Lumbar spine MRI from last year noted worsening multilevel degenerative changes with up to severe canal stenosis and mod b/l neuroforaminal stenosis This likely explains her progressive amb dysfunction Reports she gets intermittent hip/back injections outpatient PT/OT eval noted CM working on placement Diarrhea: For about a week PATIENT SERVICES SPECIALIST Stool PCR was positive for EPEC. Mild elevated troponin: Likely from her acute illness and DENNIS over CKD. Patient with no chest pain. EKG with no acute ST or T changes. Hypertension: Continue nifedipine. Continue to hold irbesartan Continue hydralazine 50mg TID and Increased Coreg 6.25mg bid May need further adjustments based on trend Rheumatoid arthritis: Home leflunomide and prednisone were held on admission due to infection Continue home prednisone She has multiple arthritic joints and gets shots at her hips and knees at rheumatology office. Continue follow up with Primary Rheum outpatient Depression: On Lexapro Restless leg syndrome: On ropinirole DVT prophylaxis: Eliquis held as above Patient's brother [place] and [id number] Kristine [[phone]] I spent a total of 45 minutes coordinating, documenting and providing care for this patient excluding time spent in performance of separately billed services Admission and Anticipated Discharge Date Admission Date: November 01, 2022 Subjective Patient seen and examined Reports some abd discomfort and nausea earlier Denied any chest pain, cough or shortness of breath. Denied dizziness, headache Denied dysuria, freq, urgency Notified later this afternoon by RN that patient had a bloody BM Physical Exam Constitutional: + well hydrated; no acute distress Eyes: PERRL, conjunctivae normal, anicteric sclerae ENMT: external ear and nose normal, oropharynx normal Respiratory: normal respiratory effort, lungs clear to auscultation Cardiovascular: Rate/Rhythm: regular rate and regular rhythm S1 S2 Gastrointestinal (Abdomen): normal bowel sounds, soft, nontender, no hepatosplenomegaly Musculoskeletal: +pedal edema Neurologic: PERRL, EOMI, accommodation nl, no face palsy, no dysarthria Psychiatric: A+Ox3, euthymic affect Results & Data Results & Data Vital Signs (Past 12 Hours) Vital Signs Temp Pulse Resp BP Pulse Ox O2 Del Method 11/14/22 07:31 36.5 C 72 18 138/82 96 Room Air Laboratory Results Abnormal lab results 11/14/22 11/14/22 Range/Units 05:47 05:47 RBC 2.46 L (4.20-5.40) M/uL Hgb 7.3 L (12.0-16.0) g/dl Hct 23.1 L (37.0-47.0) % MCHC 31.6 L (32.0-36.0) g/dL RDW Std Deviation 51.1 H (36.4-46.3) fL RDW Coeff of Mario 14.9 H (11.5-14.5) % MPV 8.8 L (9.4-12.4) fL Chloride 109 H (98-107) mmol/L BUN 46 H (6-23) mg/dl Creatinine 2.11 H (0.6-1.2) mg/dl BUN/Creatinine Ratio 21.8 H (10-20) Calcium 7.9 L (8.6-10.3) mg/dl
[2022-11-14] MEDS: HYDROCODONE/ACETAMOPHEN 5/325MG TAB PO PRN (14:10)
[2022-11-14 15:24] LABS: Hematocrit (blood only) 26.6 % (37.0-47.0); Hemoglobin 8.4 g/dl (12.0-16.0); Mean Corpuscular Hemoglobin 29.8 pg (25.0-34.0); Mean Corpuscular Hgb Conc 31.6 g/dL (32.0-36.0); Mean Corpuscular Volume 94.3 fL (80.0-100.0); Mean Platelet Volume 8.9 fL (9.4-12.4); Platelet Count 402 K/uL (130-400); RDW Coefficient of Variation 15.1 % (11.5-14.5); RDW Standard Deviation 52.6 fL (36.4-46.3); Red Blood Count 2.82 M/uL (4.20-5.40); White Blood Count 8.45 K/ul (4.8-10.8)
[2022-11-14] MEDS: ESCITALOPRAM OXALATE 20 MG TAB PO SCH (20:45)
[2022-11-14] MEDS: rOPINIRole HCL 2 MG TABLET PO SCH (20:45)
[2022-11-14] MEDS: FAMOTIDINE 10 MG TABLET PO SCH (20:46)
[2022-11-14] MEDS: tiZANidine HCL 4 MG TABLET PO SCH (20:46)
[2022-11-15] MEDS: guaiFENesin/CODEINE 100MG/10MG 5ML UDC PO PRN (00:03)
[2022-11-15] MEDS: HYDROCODONE/ACETAMOPHEN 5/325MG TAB PO PRN (00:03)
[2022-11-15] MEDS: LEVOTHYROXINE SODIUM 75 MCG TABLET PO SCH (05:31)
[2022-11-15 07:14] LABS: Hematocrit (blood only) 22.9 % (37.0-47.0); Hemoglobin 7.4 g/dl (12.0-16.0); Mean Corpuscular Hemoglobin 29.7 pg (25.0-34.0); Mean Corpuscular Hgb Conc 32.3 g/dL (32.0-36.0); Mean Platelet Volume 8.6 fL (9.4-12.4); Platelet Count 357 K/uL (130-400); RDW Coefficient of Variation 14.9 % (11.5-14.5); RDW Standard Deviation 50.2 fL (36.4-46.3); Red Blood Count 2.49 M/uL (4.20-5.40); White Blood Count 6.58 K/ul (4.8-10.8)
[2022-11-15 07:39] LABS: BUN Creatinine Ratio 23.7 (10-20); Creatinine Clr Calc Pharmacy 24.3 ml/min; Est GFR (African American) 29.3 ml/min; Est GFR (Non-African American) 25.3 ml/min; Magnesium 2.1 mg/dl (1.7-2.4); Phosphorus 4.5 mg/dl (2.5-4.9); Potassium 3.5 mmol/L (3.5-5.1)
[2022-11-15] MEDS: TIMOLOL MALEATE 0.5% OP SOLN 5 ML BTL OP SCH ×2 (08:28→19:57)
[2022-11-15] MEDS: BRIMONIDINE TARTRATE 0.2% 5ML OP SCH ×2 (08:29→19:57)
[2022-11-15] MEDS: carvediloL 6.25 MG TAB PO SCH ×2 (08:30→19:52)
[2022-11-15] MEDS: PANTOprazole 40 MG TAB PO SCH ×2 (08:30→19:55)
[2022-11-15] MEDS: hydrALAZINE TAB 50 MG TAB PO SCH ×3 (08:30→19:55)
[2022-11-15] MEDS: GABAPENTIN 600 MG TAB PO SCH ×3 (08:30→19:56)
[2022-11-15] MEDS: NIFEdipine EXTENDED REL 30 MG TABCR PO SCH (08:31)
[2022-11-15] MEDS: predniSONE 5 MG TAB PO SCH (08:31)
[2022-11-15] MEDS: FOLIC ACID 1 MG TAB PO SCH (08:31)
[2022-11-15] MEDS: LEFLUNOMIDE 10 MG TAB PO SCH (08:31)
[2022-11-15] MEDS: hydrOXYzine HCl 25 MG TAB PO SCH ×3 (08:33→20:00)
--- NOTE | 2022-11-15 09:39 | Nephrology Progress Note ---
Date of Service November 15, 2022 Assessment & Plan (1) Acute kidney injury superimposed on CKD: Plan: stage 1 nonoliguric DENNIS on CKD 3. 1.6 baseline creatinine. presented w/ creatinine 3 on 10/31, returned almost to baseline but then with one-time Lasix dose yesterday and 1 prior, creatinine bumped up again. Also with worsening anemia. Did not tolerate 40 mg MWF lasix >>>consider lower lasix 20 mg MWF most likely but for now hold diuretic while NPO/gettting anemia eval -cont coreg 6.25 mg bid, nifedipine 90 mg daily, hydralazine 50 mg tid; would like to lower hydralazine to lessen edema and get at least low dose ARB resumed soon -for now hold irbesartan or other ARB -daily bmp while in house -continue compression stockings and leg elevation (2) Anemia: Plan: t sat 6% on admission ; bloody BM afternoon 11/14; on apixiban (held for now) and prednisone chronically 200 mg venofer today test dose > if tolerated 3 day load thereafter > on day 1/3 Follow-up GI and primary service plans (3) HTN (hypertension): Plan: as above in DENNIS Admission and Anticipated Discharge Date Admission Date: November 01, 2022 Subjective ? if further dark stools ON > pt says there were ? but ? insight at times; no sob; no edema; feels her anemia is baseline Review of Systems Review of Systems: All systems reviewed & are unremarkable except as noted in Subjective Physical Exam Constitutional: well developed, well nourished, + frail appearing and coop erative; no acute distress Eyes: EOM intact bilaterally ENMT: Ears: no external ear abnormality Nose: no external nose abnormality Mouth: + dry oral mucous membranes Neck: no nuchal rigidity Respiratory: normal respiratory effort Auscultation: lungs clear to auscultation bilaterally and + diminished lung sounds Cardiovascular: Rate/Rhythm: regular rate and regular rhythm Extremities: + edema ( trace distal BLE) Gastrointestinal (Abdomen): Inspection/Auscultation: normal bowel sounds Percussion/Palpation: abdomen soft; abdomen nontender Musculoskeletal: Extremities: strength 5/5 throughout Skin: no rashes, warm and dry Psychiatric: Orientation: alert, oriented to person and oriented to place Speech: normal rate/rhythm/volume of speech Results & Data Vital Signs (Past 12 Hours) Vital Signs Temp Pulse Resp BP Pulse Ox O2 Del Method 11/15/22 08:00 Room Air 11/15/22 07:38 36.5 C 79 16 162/80 H 96 Room Air Laboratory Results 11/15/22 06:51 11/15/22 06:51 (3) HTN (hypertension) Hypertension type: unspecified Qualified Code(s): I10 - Essential (primary) hypertension
--- NOTE | 2022-11-15 10:51 | Hospitalist Progress Note ---
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 Patient presented with BLE swelling. US Doppler positive for RLE DVT. VQ scan low probability of PE. Was on Heparin Drip initially, now transitioned to eliquis since 11/07/22. In view of Hb drop and bloody BM reported by RN this afternoon, eliquis is held pending GI eval 11/15 Hg 8.4 --> 7.4 hold Eliquis repeat Hg at 12 noon requested re-evaluation by GI service Possible GI Bleed Acute on chronic anemia: Baseline hemoglobin appears around 9-10. Admitting hemoglobin of 9, dropped to 8.1 next day. FOBT was reported to be positive, taken prior to resuming heparin drip due to aforementioned hemoglobin drop noted. Got 1 Unit PRBC. GI had evaluated before and recommended outpatient follow up for scopes. 11/15 management per above IV Venofer Day 2/3 Acute kidney injury superimposed on chronic kidney disease stage III: Baseline creatinine around 1.5-1.6 Admitting creatinine of 2.9. Cr improved to 1.46 and then trended up. Cr was 2.01 on 11/08/22. Currently 2.11 today Lasix held. May need lower doses in the future Continue to hold ARB Nephrology on board 11/15 Crea 1.8 --> 2.1 --> 1.8 Bilateral leg Edema: Patient with complaint of increased lower extremity edema, recently prescribed Lasix from PCP office for last 1 week TRAVELING INVENTORY ASSOCIATE BNP 93. 3/ ECHO w/ EF of 65-70%, grade I diastolic dysfunction. 11/02/22ECHO w/ ef of 65-70%, mild S, mild MR/TR Leg edema could be due to DENNIS vs diastolic heart failure exacerbation Lower extremity DVT likely contributory as well 11/15 Lasix on hold Acute UTI: Urine culture grew proteus Completed 7 days of IV ceftriaxone Weakness: Patient reported increasing weakness for 2 days TRAVELING INVENTORY ASSOCIATE -she was sitting in her chair and was not able to get up. She was covered in urine and feces when she was brought to the ED. CPK level minimally elevated, no rhabdomyolysis. Lumbar spine MRI from last year noted worsening multilevel degenerative changes with up to severe canal stenosis and mod b/l neuroforaminal stenosis This likely explains her progressive amb dysfunction Reports she gets intermittent hip/back injections outpatient PT/OT eval noted 11/15 transition to [facility] when medically stable Diarrhea: For about a week TRAVELING INVENTORY ASSOCIATE Stool PCR was positive for EPEC. resolved Mild elevated troponin: Likely from her acute illness and DENNIS over CKD. Patient with no chest pain. EKG with no acute ST or T changes. Hypertension: Continue nifedipine. Continue to hold irbesartan Continue hydralazine 50mg TID and Increased Coreg 6.25mg bid May need further adjustments based on trend 11/15 improving continue to monitor Rheumatoid arthritis: Home leflunomide and prednisone were held on admission due to infection Continue home prednisone She has multiple arthritic joints and gets shots at her hips and knees at rheumatology office. Continue follow up with Primary Rheum outpatient Depression: On Lexapro Restless leg syndrome: On ropinirole DVT prophylaxis: Eliquis held as above Patient's brother Johnathon and [id number] Kristine [[phone]] Admission and Anticipated Discharge Date Admission Date: November 01, 2022 Subjective ff up for acute DVT, etc yesterday, patient noted by staff to be having dark stools and hematochezia Hg trended down from 8.4 to 7.4 seen resting in bed, comfortable in good spirits states she is having some lower abdomen cramping intermittent no nausea/vomiting no BM yet today no fever/chills has intermittent RLE discomfort no chest pain, dyspnea, palpitations, dizziness no other symptoms Review of Systems Review of Systems: all noted and negative except for above Physical Exam Physical Exam: General- oriented x 3, not in distress, speaks in sentences with no effort or a ccessory muscle use Eyes- anicteric Neck- no JVD Lungs- clear breath sounds bilaterally, no rales/wheezes Heart- normal rate, regular rhythm; no murmurs Abdomen- normal bowel sounds, nondistended, soft, nontender Extremities- no pretibial edema, no calf tenderness Neuro- alert, oriented x 3; no gross focal neurologic deficits Skin- warm & dry Results & Data Results & Data Vital Signs (Past 12 Hours) Vital Signs Temp Pulse Resp BP Pulse Ox O2 Del Method 11/15/22 08:00 Room Air 11/15/22 07:38 36.5 C 79 16 162/80 H 96 Room Air all noted and reviewed including below
[2022-11-15] MEDS: DICLOFENAC SOD 1% GEL 100 GM TUBE EXT PRN (11:15)
[2022-11-15 12:16] LABS: Hematocrit (blood only) 25.2 % (37.0-47.0); Hemoglobin 8.1 g/dl (12.0-16.0)
[2022-11-15] MEDS: IRON SUCROSE 300 MG in SODIUM CHLORIDE 0.9% 250 ML IV SCH (13:05)
--- NOTE | 2022-11-15 14:57 | Gastroenterology Progress Note ---
Date of Service November 15, 2022 Assessment & Plan (1) Acute kidney injury superimposed on chronic kidney disease: (2) Bilateral edema of lower extremity: (3) DVT (deep venous thrombosis): (4) Anemia: (5) Occult blood positive stool: Plan: Patient is a 81 years old female currently admitted with DENNIS, bilateral lower extremity edema found to have right lower extremity DVT. Noted to be anemic with heme positive stools and initially no gross GI bleeding. She did have rectal bleeding yesterday w slight drop in her blood ct and on exam today, stools are brown but mixed w marroon blood as well. - Monitor blood ct and transfuse prn - PPI IV BID coverage - Nephrology following, appreciate recs - Symptomatic management otherwise - Eliquis on hold - Schedule EGD and colonoscopy w Golytely prep to be done tomorrow 11/16. Pls keep her on CL diet today and NPO after midnight Admission and Anticipated Discharge Date Admission Date: November 01, 2022 Supervising Physician Co-Signing Physician Notes i personally saw and evaluated the patient on 11/15/2022 with FRANCINE Butst and agree with her findings and plan of care. 81 y/o F with history of DVT on Eliquis, Raynauds, CKD III, RA, RLS admitted with weakness found to have DENNIS and UTI as well as new RLE DVT (had history of chronic LLE DVT but this one is new on admission). She was on hepatin gtt but transitioned to Eliquis on 11/07 which has since been on hold given new onset rectal bleeding since yesterday. She has had chronic anemia with baseline hgb of 9 but during this admission has been 7-8. She has never had an EGD or colonoscopy before. For the past 24 hours she has had maroon blood mixed in with her stools. She denies any history of GI bleeding. When discussing with patient about doing EGD and colonoscopy tomorrow for her anemia and new onset GI bleeding she was very hesitant. She kept informing me she has had anemia her whole life and nothing has been an issue so why should we investigate now. She was also very worried about bowel prep given her inability to walk and the fact that nursing would have to clean her all night but I assured her that would not be a problem. She was agreeable to procedures after discussing risks vs. benefits. We will plan for EGD and colonoscopy tomorrow. NPO after midnight. Trend H/H and transfuse for hgb <7. PPI 40 mg BID. Continue to hold Eliquis. Fatuma Parrish, Gastroenterology and Hepatology Subjective GI asked by primary team to re-evaluate pt. Her Hgb dropped to 7.3 yesterday and this AM, w also symptoms of rectal bleeding. Pt denies abd pain but has pressure like sensation on lower abd - seems to be present during IV iron infusion. She denies n/v, cp, sob. Doesn't know stool color Review of Systems Review of Systems: All systems reviewed & are unremarkable except as noted in HPI & below Physical Exam Constitutional: WD/WN, vitals as above well groomed, cooperative and comfortable Eyes: PERRL, conjunctivae normal, anicteric sclerae ENMT: external ear and nose normal, oropharynx normal Respiratory: normal respiratory effort, lungs clear to auscultation Cardiovascular: RRR, no murmur, no edema Gastrointestinal (Abdomen): normal bowel sounds, soft, nontender, no hepatosplenomegaly Rectal Exam: + stool abnormal (brown with maroon stools mixed, no obvious mass in rectal vault.); no hemorrhoids and no rectal fissure Skin: no rashes, warm and dry no jaundice Neurologic: Motor/Sensory: no asterixis Psychiatric: A+Ox3, euthymic affect Lymphatic: no lymphedema Results & Data Vital Signs (Past 12 Hours) Vital Signs Temp Pulse Resp BP Pulse Ox O2 Del Method 11/15/22 08:00 Room Air 11/15/22 07:38 36.5 C 79 16 162/80 H 96 Room Air
[2022-11-15] MEDS ORDERED: LAVAGE SOLUTION 4000ML PO SCH ×3 (17:00)
[2022-11-15] MEDS: rOPINIRole HCL 2 MG TABLET PO SCH (19:54)
[2022-11-15] MEDS: FAMOTIDINE 10 MG TABLET PO SCH (19:54)
[2022-11-15] MEDS: tiZANidine HCL 4 MG TABLET PO SCH (19:54)
[2022-11-15] MEDS: ESCITALOPRAM OXALATE 20 MG TAB PO SCH (19:55)
[2022-11-15] MEDS: oxyCODONE HCL IR 5 MG TAB (IMMEDIATE RELEASE) PO PRN (21:20)
[2022-11-16] MEDS ORDERED: HYDROmorphone INJ 0.5 MG/0.5 ML SYR IV PRN (01:45)
[2022-11-16] MEDS: oxyCODONE HCL IR 5 MG TAB (IMMEDIATE RELEASE) PO PRN ×3 (01:52→21:05)
[2022-11-16] MEDS: LEVOTHYROXINE SODIUM 75 MCG TABLET PO SCH (06:26)
[2022-11-16] MEDS: BRIMONIDINE TARTRATE 0.2% 5ML OP SCH ×2 (09:17→21:06)
[2022-11-16] MEDS: TIMOLOL MALEATE 0.5% OP SOLN 5 ML BTL OP SCH ×2 (09:17→21:06)
[2022-11-16 09:45] LABS: Basophils # (auto) 0.13 K/uL (0.00-0.20); Basophils % (auto) 2.1 %; Eosinophils # (auto) 0.07 K/uL (0.00-0.50); Eosinophils % (auto) 1.1 %; Hematocrit (blood only) 23.1 % (37.0-47.0); Hemoglobin 7.5 g/dl (12.0-16.0); Immature Granulocytes # (auto) 0.04 K/uL (0.01-0.20); Immature Granulocytes % (auto) 0.6 %; Lymphocytes # (auto) 1.45 K/uL (1.20-3.40); Lymphocytes % (auto) 22.9 %; Mean Corpuscular Hemoglobin 29.6 pg (25.0-34.0); Mean Corpuscular Hgb Conc 32.5 g/dL (32.0-36.0); Mean Corpuscular Volume 91.3 fL (80.0-100.0); Mean Platelet Volume 8.6 fL (9.4-12.4); Monocytes # (auto) 0.94 K/uL (0.11-0.59); Monocytes % (auto) 14.8 %; Neutrophils # (auto) 3.71 K/uL (1.40-6.50); Neutrophils % (auto) 58.5 %; Platelet Count 382 K/uL (130-400); RDW Coefficient of Variation 15.1 % (11.5-14.5); RDW Standard Deviation 50.1 fL (36.4-46.3); Red Blood Count 2.53 M/uL (4.20-5.40); White Blood Count 6.34 K/ul (4.8-10.8)
--- NOTE | 2022-11-16 09:59 | Anesthesiology Consultation ---
Date of Service November 16, 2022 Assessment & Plan (1) Encounter for pre-operative examination: Chart Review Chart Review: Acceptable Risk for Surgery, Patient NOT seen in Pre Admission Testing and patient day coordinator initiated Consults Requested none ASA ASA3 Proposed Anesthesia Anesthesia Type: MAC History Surgery Operation Date: 11/16/22 17:30 Proposed Procedures p Colonoscopy EGD Shivani Parrish, Height/Weight Height: 5 ft 3 in Weight: 78.6 kg Allergies Allergy/AdvReac Type Severity Reaction Status Date / Time aspirin Allergy Severe ANAPHYLAXIS Verified 11/16/22 09:36 duloxetine [From Cymbalta] Allergy Intermediate Rash Verified 11/16/22 09:36 lisinopril AdvReac Intermediate Cough Verified 11/16/22 09:36 Medications Home Medications Medication Instructions Recorded Confirmed Last Taken levothyroxine 75 mcg tablet 75 mcg PO DAILYBB 11/18/20 11/01/22 05/20/21 pantoprazole 40 mg tablet,delayed 40 mg PO QAM 11/18/20 11/01/22 05/20/21 release nifedipine 90 mg tablet,extended 90 mg PO QAM 05/20/21 11/01/22 05/20/21 release 24 hr hydrocodone 5 mg-acetaminophen 325 1 tab PO Q8H PRN Pain 06/01/21 11/01/22 Unknown mg tablet irbesartan 300 mg tablet (Avapro) 300 mg PO QPM 06/01/21 11/01/22 Unknown hydralazine 10 mg tablet 10 mg PO DIRECTED PRN SBP >180 09/05/21 11/01/22 Unknown prednisone 5 mg tablet 5 mg PO DAILY 09/05/21 11/01/22 Unknown gabapentin 600 mg tablet 600 mg PO TID 01/25/22 11/01/22 Unknown diclofenac sodium 2 % topical 1 packet topical BID PRN Pain 06/20/22 11/01/22 Unknown solution in packet (Pennsaid) famotidine 10 mg tablet 10 mg PO HS 06/20/22 11/01/22 Unknown magnesium oxide 500 mg tablet 500 mg PO HS 06/20/22 11/01/22 Unknown ropinirole 2 mg tablet 2 mg PO HS 06/20/22 11/01/22 Unknown tizanidine 4 mg capsule 4 mg PO HS 06/20/22 11/01/22 Unknown brimonidine 0.2 %-timolol 0.5 % 1 drp ophthalmic (eye) BID 11/01/22 11/01/22 Unknown eye drops (Combigan) carvedilol 3.125 mg tablet 3.125 mg PO AMHS 11/01/22 11/01/22 Unknown escitalopram oxalate 20 mg tablet 20 mg PO QAM 11/01/22 11/01/22 Unknown furosemide 20 mg tablet 20 mg PO DAILY PRN .edema 11/01/22 11/01/22 Unknown hydroxyzine HCl 25 mg tablet 25 mg PO TID 11/01/22 11/01/22 Unknown leflunomide 20 mg tablet 20 mg PO QAM 11/01/22 11/01/22 Unknown apixaban 5 mg tablet (Eliquis) 5 mg PO UD #74 tabs 11/03/22 Unknown Active Medications Generic Name Dose Route Start Last Admin Trade Name Freq PRN Reason Stop Dose Admin Acetaminophen 650 mg 11/01/22 02:40 11/06/22 20:28 Acetaminophen 325 Mg Tab PO 12/01/22 02:39 650 mg Q4H PRN Administration Pain or Fever Apixaban 5 mg 11/14/22 09:00 11/14/22 07:42 Apixaban 5 Mg Tablet PO 12/14/22 08:59 5 mg Q12H AMARI Administration Brimonidine Tartrate 1 drops 11/06/22 21:00 11/16/22 09:17 Brimonidine Tartrate 0.2% 5ml OP 12/06/22 20:59 1 drops BID AMARI Administration Carvedilol 6.25 mg 11/10/22 09:00 11/15/22 19:52 Carvedilol 6.25 Mg Tab PO 12/10/22 08:59 6.25 mg AMHS AMARI Administration Diclofenac Sodium 2 gm 11/07/22 10:38 11/15/22 11:15 Diclofenac Sod 1% Gel 100 Gm Tube EXT 12/07/22 10:44 2 gm Q4H PRN Administration pain Protocol Escitalopram Oxalate 20 mg 11/01/22 21:00 11/15/22 19:55 Escitalopram Oxalate 20 Mg Tab PO 12/01/22 08:59 20 mg HS AMARI Administration Famotidine 10 mg 11/01/22 21:00 11/15/22 19:54 Famotidine 10 Mg Tablet PO 12/01/22 20:59 10 mg HS AMARI Administration Folic Acid 1 mg 11/02/22 09:00 11/15/22 08:31 Folic Acid 1 Mg Tab PO 12/02/22 08:59 1 mg QAM AMARI Administration Furosemide 40 mg 11/13/22 09:00 11/13/22 08:12 Furosemide 40 Mg Tab PO 12/13/22 08:59 40 mg [id number] AMARI Administration Gabapentin 600 mg 11/05/22 21:00 11/15/22 19:56 Gabapentin 600 Mg Tab PO 12/05/22 20:59 600 mg TID AMARI Administration Guaifenesin/Codeine Phosphate 5 ml 11/06/22 12:14 11/15/22 00:03 Guaifenesin/Codeine 100mg/10mg 5ml Udc PO 12/06/22 12:13 5 ml Q6H PRN Administration Cough Hydralazine HCl 50 mg 11/07/22 14:00 11/15/22 19:55 Hydralazine Tab 50 Mg Tab PO 12/07/22 13:59 50 mg TID AMARI Administration Hydroxyzine HCl 25 mg 11/01/22 09:00 11/15/22 20:00 Hydroxyzine Hcl 25 Mg Tab PO 12/01/22 08:59 25 mg TID AMARI Administration Promethazine HCl 12.5 mg/ 50.5 mls @ 202 mls/hr 11/05/22 20:11 11/05/22 21:49 Sodium Chloride IV 12/05/22 20:10 Infused Q6H PRN Infusion Nausea And Vomiting Iron Sucrose 300 mg/ Sodium 265 mls @ 176.667 mls/hr 11/15/22 13:00 11/15/22 14:39 Chloride IV 11/17/22 14:29 Infused DAILY@1300 AMARI Infusion Leflunomide 20 mg 11/04/22 09:00 11/15/22 08:31 Leflunomide 10 Mg Tab PO 12/04/22 08:59 20 mg QAM AMARI Administration Levothyroxine Sodium 75 mcg 11/01/22 06:30 11/16/22 06:26 Levothyroxine Sodium 75 Mcg Tablet PO 12/01/22 06:29 75 mcg DAILYBB AMARI Administration Nifedipine 90 mg 11/08/22 09:00 11/15/22 08:31 Nifedipine Extended Rel 30 Mg Tabcr PO 12/08/22 08:59 90 mg QAM AMARI Administration Oxycodone HCl 5 mg 11/15/22 20:33 11/16/22 01:52 Oxycodone Hcl Ir 5 Mg Tab (Immediate Release) PO 11/29/22 20:32 5 mg Q4H PRN Administration Pain Pantoprazole Sodium 40 mg 11/04/22 21:00 11/15/22 19:55 Pantoprazole 40 Mg Tab PO 12/04/22 20:59 40 mg BID AMARI Administration Prednisone 5 mg 11/01/22 09:00 11/15/22 08:31 Prednisone 5 Mg Tab PO 12/01/22 08:59 5 mg DAILY AMARI Administration Ropinirole HCl 2 mg 11/01/22 21:00 11/15/22 19:54 Ropinirole Hcl 2 Mg Tablet PO 12/01/22 20:59 2 mg HS AMARI Administration Timolol Maleate 1 drops 11/06/22 21:00 11/16/22 09:17 Timolol Maleate 0.5% Op Soln 5 Ml Btl OP 12/06/22 20:59 1 drops BID AMARI Administration Tizanidine HCl 4 mg 11/01/22 21:00 11/15/22 19:54 Tizanidine Hcl 4 Mg Tablet PO 12/01/22 20:59 4 mg HS AMARI Administration NPO Date Last Intake of Fluids: 11/16/22 Time Last Intake of Fluids: 03:00 Date Last Intake of Solids: 11/14/22 Time Last Intake of Solids: 18:00 Past Medical History Medical History Anxiety CKD (chronic kidney disease), stage III Depression Elevated troponin I level Encounter for pre-operative examination Glaucoma Herniated lumbar disc without myelopathy Left central disc herniation at L5-S1 High cholesterol Hypertension Hypertensive emergency Hypothyroidism Lumbar radiculopathy Neuropathy FEET Osteoarthritis Restless leg syndrome Rheumatoid arthritis FOLLOWS DR. TREVINO Rotator cuff tear, left Spinal stenosis, lumbar region with neurogenic claudication Past Family History Family History Mother Family history of reaction to anesthesia SLOW TO AWAKEN Past Surgical History Surgical History History of carpal tunnel release RIGHT HAND History of total bilateral knee replacement (TKR) Hx laparoscopic cholecystectomy Hx of arthroscopy RIGHT KNEE (MENISCUS) Hx of hysterectomy Hx of tonsillectomy Social History Smoking Status: Never smoker Do You Dip or Chew Tobacco: No Hx Alcohol Use: No Alcohol type: other alcohol intake frequency: holidays/special occasions only Hx Substance Use: No substance use type: does not use Physical Exam Vital Signs Last Vital Signs Temp 36.7 C 11/16/22 09:39 Pulse 77 11/16/22 09:39 Resp 16 11/16/22 09:39 BP 180/81 H 11/16/22 09:39 Pulse Ox 94 11/16/22 09:39 O2 Del Method Room Air 11/16/22 09:39 O2 Flow Rate 1 11/04/22 07:49 Testing Laboratory Results 11/16/22 09:17 11/15/22 06:51 PT 10.9 Seconds (9.0-12.0) 11/02/22 12:01 INR 1.0 (0.9-1.1) 11/02/22 12:01 APTT 27.4 Seconds (21.0-31.0) 11/09/22 06:01 Hemoglobin A1c 5.0 % (4.5-5.6) 11/01/22 04:52 Urine Color Dark Yellow 10/31/22 22:08 Urine Appearance Turbid (Clear) A 10/31/22 22:08 Urine pH 8.5 (4.5-7.5) H 10/31/22 22:08 Ur Specific [place] 1.009 (1.000-1.030) 10/31/22 22:08 Urine Protein 1+ (Negative) H 10/31/22 22:08 Urine Glucose (UA) Negative (Negative) 10/31/22 22:08 Urine Ketones Negative (Negative) 10/31/22 22:08 Urine Nitrite Negative (Negative) 10/31/22 22:08 Ur Leukocyte Esterase 3+ (Negative) H 10/31/22 22:08 Urine WBC (Auto) >30 /hpf (0-5) H 10/31/22 22:08 Urine RBC (Auto) 0-4 /hpf (0-4) 10/31/22 22:08 U Hyaline Cast (Auto) 0 /lpf (0-5) 10/31/22 22:08 U Epithel Cells (Auto) >30 /lpf (0-5) H 10/31/22 22:08 Urine Bacteria (Auto) 4+ (Negative) H 10/31/22 22:08 Blood Type B Negative 11/01/22 16:48 Antibody Screen NEGATIVE 11/01/22 16:48 10/31/22 22:08 Urine Culture - Final Urine,Clean Catch Proteus mirabilis Electrocardiogram Date: 10/31/22 Normal sinus rhythm Nonspecific ST and T wave abnormality Abnormal ECG When compared with ECG of 21-JUN-2022 02:45, No significant change was found Confirmed by Dave Lema ([id number]) on 11/01/2022 5:44:07 PM Echocardiogram Date: 11/02/22 EF: 65-70 LV Function: normal RWMA: + none Valvular Disease: + (mild) and + MR (mild) Mild TR
[2022-11-16 10:01] LABS: Anisocytosis Present; Polychromasia 1+; Tear Drop Cells 1+
--- NOTE | 2022-11-16 10:22 | History & Physical Report ---
Date of Service November 16, 2022 Assessment & Plan (1) Encounter for pre-operative examination: Plan: Proceed with planned EGD and colonoscopy. Admission and Anticipated Discharge Date Admission Date: November 01, 2022 History of Present Illness Chief Complaint: here today for EGD and colonoscopy. Primary Care Provider: Kj Minor MD 81 y/o F here today for EGD and colonoscopy for anemia and rectal bleeding. Allergies Allergy/AdvReac Type Severity Reaction Status Date / Time aspirin Allergy Severe ANAPHYLAXIS Verified 11/16/22 09:36 duloxetine [From Cymbalta] Allergy Intermediate Rash Verified 11/16/22 09:36 lisinopril AdvReac Intermediate Cough Verified 11/16/22 09:36 Home Medications Medication Instructions Recorded Confirmed Type levothyroxine 75 mcg tablet 75 mcg PO DAILYBB 11/18/20 11/01/22 History pantoprazole 40 mg tablet,delayed 40 mg PO QAM 11/18/20 11/01/22 History release nifedipine 90 mg tablet,extended 90 mg PO QAM 05/20/21 11/01/22 History release 24 hr hydrocodone 5 mg-acetaminophen 325 1 tab PO Q8H PRN Pain 06/01/21 11/01/22 History mg tablet irbesartan 300 mg tablet (Avapro) 300 mg PO QPM 06/01/21 11/01/22 History hydralazine 10 mg tablet 10 mg PO DIRECTED PRN SBP >180 09/05/21 11/01/22 History prednisone 5 mg tablet 5 mg PO DAILY 09/05/21 11/01/22 History gabapentin 600 mg tablet 600 mg PO TID 01/25/22 11/01/22 History diclofenac sodium 2 % topical 1 packet topical BID PRN Pain 06/20/22 11/01/22 History solution in packet (Pennsaid) famotidine 10 mg tablet 10 mg PO HS 06/20/22 11/01/22 History magnesium oxide 500 mg tablet 500 mg PO HS 06/20/22 11/01/22 History ropinirole 2 mg tablet 2 mg PO HS 06/20/22 11/01/22 History tizanidine 4 mg capsule 4 mg PO HS 06/20/22 11/01/22 History brimonidine 0.2 %-timolol 0.5 % 1 drp ophthalmic (eye) BID 11/01/22 11/01/22 History eye drops (Combigan) carvedilol 3.125 mg tablet 3.125 mg PO AMHS 11/01/22 11/01/22 History escitalopram oxalate 20 mg tablet 20 mg PO QAM 11/01/22 11/01/22 History furosemide 20 mg tablet 20 mg PO DAILY PRN .edema 11/01/22 11/01/22 History hydroxyzine HCl 25 mg tablet 25 mg PO TID 11/01/22 11/01/22 History leflunomide 20 mg tablet 20 mg PO QAM 11/01/22 11/01/22 History apixaban 5 mg tablet (Eliquis) 5 mg PO UD #74 tabs 11/03/22 Rx Past Med/Surg History Medical History Anxiety CKD (chronic kidney disease), stage III Depression Elevated troponin I level Encounter for pre-operative examination Glaucoma Herniated lumbar disc without myelopathy Left central disc herniation at L5-S1 High cholesterol Hypertension Hypertensive emergency Hypothyroidism Lumbar radiculopathy Neuropathy FEET Osteoarthritis Restless leg syndrome Rheumatoid arthritis FOLLOWS DR. TREVINO Rotator cuff tear, left Spinal stenosis, lumbar region with neurogenic claudication Surgical History History of carpal tunnel release RIGHT HAND History of total bilateral knee replacement (TKR) Hx laparoscopic cholecystectomy Hx of arthroscopy RIGHT KNEE (MENISCUS) Hx of hysterectomy Hx of tonsillectomy Family History Mother Family history of reaction to anesthesia SLOW TO AWAKEN Social History Smoking Status: Never smoker Second Hand Exposure: No; Do You Dip or Chew Tobacco: No; Hx Alcohol Use: No Hx Substance Use: No Preferred Language: Chinese Communication Ability: Effective Visual Impairment: No Limitations Senior Clerk Required: No Beliefs That Will Affect Care: None marital status: Single Current Living Situation: Alone Current Living Situation Comment: needs 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 How many Children do You have: 0 Feels Safe at Home: Yes Assistive Devices: Walker Review of Systems All systems reviewed & are unremarkable except as noted in HPI & below Physical Exam Constitutional: WD/WN, vitals as above Respiratory: normal respiratory effort, lungs clear to auscultation Cardiovascular: RRR, no murmur, no edema Gastrointestinal (Abdomen): normal bowel sounds, soft, nontender, no hepatosplenomegaly Psychiatric: A+Ox3, euthymic affect Results & Data Vital Signs (Past 12 Hours) Vital Signs Temp Pulse Pulse Resp BP Pulse Ox O2 Del Method 11/16/22 09:39 36.7 C 77 16 180/81 H 94 Room Air 11/16/22 07:36 36.5 C 79 16 173/74 H 96 Room Air Code Status & VTE Plan VTE Prophylaxis Plan VTE Prophylaxis will be ordered: Yes
[2022-11-16] MEDS ORDERED: PROPOFOL IV EMULSION 10 MG/ML 20 ML VIAL IV ONE (11:04)
[2022-11-16] MEDS ORDERED: LIDOCAINE 2% 2 ML VIAL/AMP(20MG/ML) INFIL ONE (11:04)
--- NOTE | 2022-11-16 11:17 | GI REPORT ---
Patient Name: Jossy Padron Procedure Date: 11/16/2022 10:24 AM Date of : 1940 Admit Type: Inpatient Age: 81 Gender: Female Attending MD: Fatuma Parrish DO, Procedure: Upper GI endoscopy Providers: Fatuma Parrish DO Referring MD: Ebenezer Zurita Indications: Iron deficiency anemia, Hematochezia Patient Profile: This is a 81 year old female. Refer to note in patient chart for documentation of history and physical. Medicines: Monitored Anesthesia Care Complications: No immediate complications. Estimated Blood Loss: Estimated blood loss was minimal. Procedure: Pre-Anesthesia Assessment: - Prior to the procedure, a History and Physical was performed, and patient medications and allergies were reviewed. The risks and benefits of the procedure and the sedation options and risks were discussed with the patient. All questions were answered and informed consent was obtained. Patient identification and proposed procedure were verified by the physician, the nurse and the yard spotter in the procedure room. Mental Status Examination: alert and oriented. Airway Examination: Mallampati Class II (the uvula but not tonsillar pillars visualized). Respiratory Examination: clear to auscultation. CV Examination: RRR, no murmurs, no S3 or S4. Prophylactic Antibiotics: The patient does not require prophylactic antibiotics. Prior Anticoagulants: The patient has taken Eliquis (apixaban), last dose was 2 days prior to procedure. ASA Grade Assessment: III - A patient with severe systemic disease. After reviewing the risks and benefits, the patient was deemed in satisfactory condition to undergo the procedure. The anesthesia plan was to use monitored anesthesia care (MAC). Immediately prior to administration of medications, the patient was re-assessed for adequacy to receive sedatives. The physical status of the patient was re-assessed after the procedure. After obtaining informed consent, the endoscope was passed under direct vision. Throughout the procedure, the patient's blood pressure, pulse, and oxygen saturations were monitored continuously. The Endoscope was introduced through the mouth, and advanced to the third part of duodenum. The upper GI endoscopy was accomplished without difficulty. The patient tolerated the procedure well. Findings: The Z-line was regular and was found 35 cm from the incisors. A medium-sized hiatal hernia was present. The exam of the esophagus was otherwise normal. The entire examined stomach was normal. Lymphangiectasia was present in the second portion of the duodenum. Biopsies for histology were taken with a cold forceps for evaluation of celiac disease. Verification of patient identification for the specimen was done by the physician and nurse using the patient's name and date. Impression: - Z-line regular, 35 cm from the incisors. - Medium-sized hiatal hernia. - Normal stomach. - Duodenal mucosal lymphangiectasia. Recommendation: - Return patient to [facility] for ongoing care. - Resume previous diet. - Continue present medications. - Await pathology results. - Proceed to same day colonoscopy. Fatuma Parrish, 11/16/2022 11:16:41 AM Note Initiated On: 11/16/2022 10:24 AM Number of Addenda: 0 I attest to the content of the Intraoperative Record and orders documented therein, exceptions below {[id number]}
--- NOTE | 2022-11-16 11:22 | GI REPORT ---
Patient Name: Jossy Padron Procedure Date: 11/16/2022 10:24 AM Date of : 1940 Admit Type: Inpatient Age: 81 Gender: Female Attending MD: Fatuma Parrish DO, Procedure: Colonoscopy Providers: Fatuma Parrish DO Referring MD: Ebenezer Zurita Indications: Hematochezia Patient Profile: This is a 81 year old female. Refer to note in patient chart for documentation of history and physical. Medicines: Monitored Anesthesia Care Complications: No immediate complications. Estimated Blood Loss: Estimated blood loss was minimal. Procedure: Pre-Anesthesia Assessment: - Prior to the procedure, a History and Physical was performed, and patient medications and allergies were reviewed. The risks and benefits of the procedure and the sedation options and risks were discussed with the patient. All questions were answered and informed consent was obtained. Patient identification and proposed procedure were verified by the physician, the nurse and the computer engineering technician in the procedure room. Mental Status Examination: alert and oriented. Airway Examination: Mallampati Class II (the uvula but not tonsillar pillars visualized). Respiratory Examination: clear to auscultation. CV Examination: RRR, no murmurs, no S3 or S4. Prophylactic Antibiotics: The patient does not require prophylactic antibiotics. Prior Anticoagulants: The patient has taken Eliquis (apixaban), last dose was 2 days prior to procedure. ASA Grade Assessment: III - A patient with severe systemic disease. After reviewing the risks and benefits, the patient was deemed in satisfactory condition to undergo the procedure. The anesthesia plan was to use monitored anesthesia care (MAC). Immediately prior to administration of medications, the patient was re-assessed for adequacy to receive sedatives. The physical status of the patient was re-assessed after the procedure. After I obtained informed consent, the scope was passed under direct vision. Throughout the procedure, the patient's blood pressure, pulse, and oxygen saturations were monitored continuously. The Colonoscope was introduced through the anus and advanced to the cecum, identified by the appendiceal orifice, IC valve and transillumination. The colonoscopy was performed without difficulty. The patient tolerated the procedure well. The quality of the bowel preparation was good. The ileocecal valve, appendiceal orifice, and rectum were photographed. Findings: The perianal and digital rectal examinations were normal. Multiple small and large-mouthed diverticula were found in the entire colon. There was narrowing of the colon in association with the diverticular opening. A 3 mm polyp was found in the rectum. The polyp was sessile. Polypectomy was attempted, initially using a cold snare. Polyp resection was incomplete with this device. This intervention then required a different device and polypectomy technique. The polyp was removed with a cold biopsy forceps. Resection and retrieval were complete. Verification of patient identification for the specimen was done by the physician and nurse using the patient's name and date. 2 ulcers were found in the rectum. No bleeding was present. No stigmata of recent bleeding were seen. Impression: - Severe diverticulosis in the entire examined colon. There was narrowing of the colon in association with the diverticular opening. - One 3 mm polyp in the rectum, removed with a cold biopsy forceps. Resected and retrieved. - 2 deep, crated ulcers in the rectum. The largest was about 1 cm in length. No evidence of recent bleeding or active bleeding. Clean based. Suspect this is the source of recent bleeding. Avoid NSAIDs and avoid constipation which can create ulcers. Use miralax 17 g once daily. Recommendation: - Return patient to [facility] for ongoing care. - Resume previous diet. - Continue present medications. - Await pathology results. - Would recommend a repeat flex sig in 3 months to ensure ulcers heal and if not to take biopsies at that time. Fatuma Parrish, 11/16/2022 11:21:54 AM Note Initiated On: 11/16/2022 10:24 AM Number of Addenda: 0 I attest to the content of the Intraoperative Record and orders documented therein, exceptions below {[id number]}
[2022-11-16] MEDS: hydrOXYzine HCl 25 MG TAB PO SCH ×3 (11:56→21:09)
[2022-11-16] MEDS: GABAPENTIN 600 MG TAB PO SCH ×3 (11:56→21:07)
[2022-11-16] MEDS: FOLIC ACID 1 MG TAB PO SCH (12:08)
[2022-11-16] MEDS: PANTOprazole 40 MG TAB PO SCH ×2 (12:08→21:06)
[2022-11-16] MEDS: carvediloL 6.25 MG TAB PO SCH ×2 (12:08→21:07)
[2022-11-16] MEDS: NIFEdipine EXTENDED REL 30 MG TABCR PO SCH (12:08)
[2022-11-16] MEDS: predniSONE 5 MG TAB PO SCH (12:08)
[2022-11-16] MEDS: LEFLUNOMIDE 10 MG TAB PO SCH (12:09)
[2022-11-16] MEDS: hydrALAZINE TAB 50 MG TAB PO SCH ×3 (12:09→21:06)
--- NOTE | 2022-11-16 12:17 | Communication Note ---
Date of Service: November 16, 2022 Patient s/p EGD and colonoscopy today. EGD with medium sized hiatal hernia and lymphangiectasias of the duodenum that were biopsied. Colonoscopy with severe diverticulosis, 1 rectal polyp that was removed, and 2 large, deep cratered rectal ulcers that were clean based without any stigmata of recent bleeding though i suspect this is the likely cause of her hematochezia. She denies any NSAID use sothese ulcers are likely stercoral from constipation. Recommend daily miralax 17 daily. We will arrange flex sig in 3 months to ensure ulcer healing and if not healed will get biopsies at that time. Advise to hold Eliquis for 3 days if able to allow more time for ulcer healing to decrease re-bleeding risk. GI will sign off but please call back with questions. Fatuma Parrish, DO Gastroenterology and Hepatology
--- NOTE | 2022-11-16 13:08 | Anesthesiology Progress Note ---
Date of Service November 16, 2022 Anesthesia Post Procedure Vital Signs Vital Signs: Temp Pulse Pulse Resp BP BP Pulse Ox 11/16/22 12:00 36.6 C 76 16 186/91 H 96 11/16/22 11:51 75 16 157/84 H 94 11/16/22 11:36 74 16 161/77 H 161/77 H 94 11/16/22 11:22 97/49 L 11/16/22 11:21 66 16 86/45 L 95 11/16/22 09:39 36.7 C 77 16 180/81 H 94 11/16/22 07:36 36.5 C 79 16 173/74 H 96 11/15/22 19:51 84 182/84 H 11/15/22 16:04 36.4 C L 76 16 177/98 H 97 O2 Del Method 11/16/22 12:00 Room Air 11/16/22 11:51 Room Air 11/16/22 11:36 Room Air 11/16/22 11:22 11/16/22 11:21 Room Air 11/16/22 09:39 Room Air 11/16/22 07:36 Room Air 11/15/22 19:51 11/15/22 16:04 Room Air Pain Intensity Left Leg: Pain Intensity: 5 Bilateral Leg: Pain Intensity: 8 Transfer of Care Handoff Completed per policy Notes Mental Status: alert / awake / arousable and participated in evaluation Patient Amnestic to Procedure: Yes Nausea / Vomiting: adequately controlled Pain: adequately controlled Airway Patency, RR, SpO2: stable & adequate BP & HR: stable & adequate Hydration State: stable & adequate Anesthetic Complications: no major complications apparent
[2022-11-16] MEDS: IRON SUCROSE 300 MG in SODIUM CHLORIDE 0.9% 250 ML IV SCH (13:35)
[2022-11-16] MEDS: APIXABAN 5 MG TABLET PO SCH (18:25)
--- NOTE | 2022-11-16 19:01 | Hospitalist Progress Note ---
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 Patient presented with BLE swelling. US Doppler positive for RLE DVT. VQ scan low probability of PE. Was on Heparin Drip initially, now transitioned to eliquis since 11/07/22. In view of Hb drop and bloody BM reported by RN this afternoon, eliquis is held pending GI eval 11/16 Hg 8.4 --> 7.4--> 7.5 s/p EGD s/p Colonoscopy: (+) rectal ulcer, possible source of bleeding discussed with Dr. Parrish- will resume Eliquis tonight monitor closely Hg tomorrow Possible GI Bleed Acute on chronic anemia: Baseline hemoglobin appears around 9-10. Admitting hemoglobin of 9, dropped to 8.1 next day. FOBT was reported to be positive, taken prior to resuming heparin drip due to aforementioned hemoglobin drop noted. Got 1 Unit PRBC. GI had evaluated before and recommended outpatient follow up for scopes. 11/16 management per above IV Venofer Day 3/ Acute kidney injury superimposed on chronic kidney disease stage III: Baseline creatinine around 1.5-1.6 Admitting creatinine of 2.9. Cr improved to 1.46 and then trended up. Cr was 2.01 on 11/08/22. Currently 2.11 today Lasix held. May need lower doses in the future Continue to hold [facility]ph[facility] on board 11/16 Crea 1.8 --> 2.1 --> 1.8 Bilateral leg Edema: Patient with complaint of increased lower extremity edema, recently prescribed Lasix from PCP office for last 1 week GROUP PRESIDENT BNP 93. 3/ ECHO w/ EF of 65-70%, grade I diastolic dysfunction. 11/02/22ECHO w/ ef of 65-70%, mild S, mild MR/TR Leg edema could be due to DENNIS vs diastolic heart failure exacerbation Lower extremity DVT likely contributory as well 11/16 Lasix on hold Acute UTI: Urine culture grew proteus Completed 7 days of IV ceftriaxone Weakness: Patient reported increasing weakness for 2 days GROUP PRESIDENT -she was sitting in her chair and was not able to get up. She was covered in urine and feces when she was brought to the ED. CPK level minimally elevated, no rhabdomyolysis. Lumbar spine MRI from last year noted worsening multilevel degenerative changes with up to severe canal stenosis and mod b/l neuroforaminal stenosis This likely explains her progressive amb dysfunction Reports she gets intermittent hip/back injections outpatient PT/OT eval noted 11/16 transition to [facility] when medically stable Diarrhea: For about a week GROUP PRESIDENT Stool PCR was positive for EPEC. resolved Mild elevated troponin: Likely from her acute illness and DENNIS over CKD. Patient with no chest pain. EKG with no acute ST or T changes. Hypertension: Continue nifedipine. Continue to hold irbesartan Continue hydralazine 50mg TID and Increased Coreg 6.25mg bid May need further adjustments based on trend improving continue to monitor Rheumatoid arthritis: Home leflunomide and prednisone were held on admission due to infection Continue home prednisone She has multiple arthritic joints and gets shots at her hips and knees at rheumatology office. Continue follow up with Primary Rheum outpatient Depression: On Lexapro Restless leg syndrome: On ropinirole DVT prophylaxis: Eliquis held as above Patient's brother [place] and [id number] Kristine [[phone]] Admission and Anticipated Discharge Date Admission Date: November 01, 2022 Subjective ff up for acute DVT, etc seen resting in bed, comfortable s/p EGD and Colonoscopy no signs of GI bleed at this time no chest pain, dyspnea, palpitations, dizziness no other symptoms Review of Systems Review of Systems: all noted and negative except for above Physical Exam Physical Exam: General- oriented x 3, not in distress, speaks in sentences with no effort or accessory muscle use Eyes- anicteric Neck- no JVD Lungs- clear breath sounds bilaterally, no rales/wheezes Heart- normal rate, regular rhythm; no murmurs Abdomen- normal bowel sounds, nondistended, soft, nontender Extremities- no pretibial edema, no calf tenderness Neuro- alert, oriented x 3; no gross focal neurologic deficits Skin- warm & dry Results & Data Results & Data Vital Signs (Past 12 Hours) Vital Signs Temp Pulse Pulse Resp BP BP Pulse Ox 11/16/22 15:20 36.5 C 77 16 140/74 95 11/16/22 12:00 36.6 C 76 16 186/91 H 96 11/16/22 11:51 75 16 157/84 H 94 11/16/22 11:36 74 16 161/77 H 161/77 H 94 11/16/22 11:22 97/49 L 11/16/22 11:21 66 16 86/45 L 95 11/16/22 09:39 36.7 C 77 16 180/81 H 94 11/16/22 07:36 36.5 C 79 16 173/74 H 96 O2 Del Method 11/16/22 15:20 Room Air 11/16/22 12:00 Room Air 11/16/22 11:51 Room Air 11/16/22 11:36 Room Air 11/16/22 11:22 11/16/22 11:21 Room Air 11/16/22 09:39 Room Air 11/16/22 07:36 Room Air all noted and reviewed including below
[2022-11-16] MEDS: tiZANidine HCL 4 MG TABLET PO SCH (21:06)
[2022-11-16] MEDS: FAMOTIDINE 10 MG TABLET PO SCH (21:07)
[2022-11-16] MEDS: rOPINIRole HCL 2 MG TABLET PO SCH (21:07)
[2022-11-16] MEDS: ESCITALOPRAM OXALATE 20 MG TAB PO SCH (21:14)
[2022-11-17] MEDS: LEVOTHYROXINE SODIUM 75 MCG TABLET PO SCH (05:35)
[2022-11-17] MEDS: APIXABAN 5 MG TABLET PO SCH ×2 (05:35→16:48)
[2022-11-17] MEDS: hydrOXYzine HCl 25 MG TAB PO SCH ×3 (07:59→20:06)
[2022-11-17] MEDS: predniSONE 5 MG TAB PO SCH (07:59)
[2022-11-17] MEDS: PANTOprazole 40 MG TAB PO SCH ×2 (07:59→20:08)
[2022-11-17] MEDS: carvediloL 6.25 MG TAB PO SCH ×2 (08:00→20:06)
[2022-11-17] MEDS: hydrALAZINE TAB 50 MG TAB PO SCH ×2 (08:00→12:59)
[2022-11-17] MEDS: GABAPENTIN 600 MG TAB PO SCH (08:00)
[2022-11-17] MEDS: FOLIC ACID 1 MG TAB PO SCH (08:00)
[2022-11-17] MEDS: LEFLUNOMIDE 10 MG TAB PO SCH (08:00)
[2022-11-17] MEDS: NIFEdipine EXTENDED REL 30 MG TABCR PO SCH (08:01)
[2022-11-17] MEDS: TIMOLOL MALEATE 0.5% OP SOLN 5 ML BTL OP SCH ×2 (08:01→20:06)
[2022-11-17] MEDS: BRIMONIDINE TARTRATE 0.2% 5ML OP SCH ×2 (08:01→20:06)
[2022-11-17 08:13] LABS: Basophils # (auto) 0.11 K/uL (0.00-0.20); Basophils % (auto) 1.4 %; Eosinophils # (auto) 0.01 K/uL (0.00-0.50); Eosinophils % (auto) 0.1 %; Hematocrit (blood only) 25.5 % (37.0-47.0); Hemoglobin 7.9 g/dl (12.0-16.0); Immature Granulocytes # (auto) 0.04 K/uL (0.01-0.20); Immature Granulocytes % (auto) 0.5 %; Lymphocytes # (auto) 1.79 K/uL (1.20-3.40); Lymphocytes % (auto) 22.5 %; Mean Corpuscular Volume 93.8 fL (80.0-100.0); Mean Platelet Volume 8.5 fL (9.4-12.4); Monocytes # (auto) 1.14 K/uL (0.11-0.59); Monocytes % (auto) 14.3 %; Neutrophils # (auto) 4.88 K/uL (1.40-6.50); Neutrophils % (auto) 61.2 %; Platelet Count 391 K/uL (130-400); RDW Coefficient of Variation 15.1 % (11.5-14.5); Red Blood Count 2.72 M/uL (4.20-5.40); White Blood Count 7.97 K/ul (4.8-10.8)
[2022-11-17 09:06] LABS: Acanthocytes 2+
--- NOTE | 2022-11-17 10:34 | Hospitalist Progress Note ---
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 Patient presented with BLE swelling. US Doppler positive for RLE DVT. VQ scan low probability of PE. Was on Heparin Drip initially, now transitioned to eliquis since 11/07/22. In view of Hb drop and bloody BM reported by RN this afternoon, eliquis is held pending GI eval 11/17 Hg 8.4 --> 7.4--> 7.5--> 7.9 s/p EGD s/p Colonoscopy: (+) rectal ulcer, possible source of bleeding discussed with Dr. Parrish- Eliquis resumed 11/16 monitor closely Hg tomorrow Possible GI Bleed Acute on chronic anemia: Baseline hemoglobin appears around 9-10. Admitting hemoglobin of 9, dropped to 8.1 next day. FOBT was reported to be positive, taken prior to resuming heparin drip due to aforementioned hemoglobin drop noted. Got 1 Unit PRBC. GI had evaluated before and recommended outpatient follow up for scopes. 11/17 management per above Completed Venofer Day 3 Acute kidney injury superimposed on chronic kidney disease stage III: Baseline creatinine around 1.5-1.6 Admitting creatinine of 2.9. Cr improved to 1.46 and then trended up. Cr was 2.01 on 11/08/22. Currently 2.11 today Lasix held. 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 3/ ECHO w/ EF of 65-70%, grade I diastolic dysfunction. 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 She was covered in urine and feces when she was brought to the ED. CPK level minimally elevated, no rhabdomyolysis. 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 resolved Mild elevated troponin: Likely from her acute illness and DENNIS over CKD. Patient with no chest pain. EKG with no acute ST or T changes. Hypertension: Continue nifedipine. Continue to hold irbesartan Continue hydralazine 50mg TID and Increased Coreg 6.25mg bid May need further adjustments based on trend 11/17 improving continue to monitor Rheumatoid arthritis: Home leflunomide and prednisone were held on admission due to infection Continue home prednisone She has multiple arthritic joints and gets shots at her hips and knees at rheumatology office. Continue follow up with Primary Rheum outpatient Depression: On Lexapro Restless leg syndrome: On ropinirole DVT prophylaxis: Eliquis held as above Patient's brother Johnathon and [id number] Kristine [[phone]] Admission and Anticipated Discharge Date Admission Date: November 01, 2022 Subjective Follow-up for GI bleed, acute DVT, etc. Sitting up in bed comfortable, not in distress States she feels fine overall Having some back spasms No bowel movement, no melena hematochezia noted no chest pain, dyspnea, palpitations, dizziness Review of Systems Review of Systems: all noted and negative except for above Physical Exam Physical Exam: General- oriented x 3, not in distress, speaks in sentences with no effort or accessory muscle use Eyes- anicteric Neck- no JVD Lungs- clear breath sounds bilaterally Heart- normal rate, regular rhythm; no murmurs Abdomen- normal bowel sounds, nondistended, soft, nontender Extremities- mild edema RLE, LLE: no pretibial edema, no calf tenderness Neuro- alert, oriented x 3; no gross focal neurologic deficits Skin- warm & dry Results & Data Results & Data Vital Signs (Past 12 Hours) Vital Signs Temp Pulse Resp BP Pulse Ox O2 Del Method 11/17/22 07:22 36.6 C 76 16 175/80 H 96 Room Air all noted and reviewed including below
--- NOTE | 2022-11-17 11:21 | Nephrology Progress Note ---
Date of Service November 17, 2022 Assessment & Plan (1) Acute kidney injury superimposed on CKD: Plan: stage 1 nonoliguric DENNIS on CKD 3. 1.6 baseline creatinine. presented w/ creatinine 3 on 10/31, returned almost to baseline but then with one-time Lasix dose yesterday and 1 prior, creatinine bumped up again. Also with worsening anemia. Did not tolerate 40 mg MWF lasix >> last bmp on 11/15 > ordered one now and for AM x 3 >>>resumed lower lasix 20 mg MWF but not to start until Mon 11/20 -cont coreg 6.25 mg bid, nifedipine 90 mg daily, >>>lowered hydralazine 50>25 mg tid; and resumed irbesartan 150 mg daily -daily bmp while in house -continue compression stockings and leg elevation Will sign off; pls call if ? NEPH D/C RECS -weekly BMP while at rehab and at PCP f/u from SNF rehab -hospital d/c visit w/ neph 2-3 wks after rehab d/c or after she becomes permanent SNF resident if she does not return home -continue compression socks, leg elevation -NO NSAIDS -d/c on neph meds as above (2) Anemia: Plan: t sat 6% on admission ; bloody BM afternoon 11/14; on apixiban (held for now) and prednisone chronically. Hemoglobin usually in the tens as an outpatient prior to 2022. March through June 2022 ran in the nines. No outpatient hemoglobin since then. Patient status post November 16 EGD and colonoscopy. EGD with medium hiatal hernia and duodenal lymphangiectasias, s/p biopsy. Colonoscopy with rectal polyp which was removed and 2 large deep cratered rectal ulcers wit hout stigmata of recent bleeding, ? stercoral etiology v less likely nsaid. miralax recommended. -ok from neph standpoint w/ miralax 200 mg venofer today test dose > if tolerated 3 day load thereafter > on day 2/3 Follow-up GI and primary service plans (3) HTN (hypertension): Plan: as above in DENNIS Admission and Anticipated Discharge Date Admission Date: November 01, 2022 Subjective bidirectional scope yesterday w/ rectal ulcers ? stercoral origin; no n/v, no sob Review of Systems Review of Systems: All systems reviewed & are unremarkable except as noted in Subjective Physical Exam Constitutional: well developed, well nourished, + frail appearing and cooperative; no acute distress Eyes: EOM intact bilaterally ENMT: Ears: no external ear abnormality Nose: no external nose abnormality Mouth: + dry oral mucous membranes Neck: no nuchal rigidity Respiratory: normal respiratory effort Auscultation: lungs clear to auscul tation bilaterally and + diminished lung sounds Cardiovascular: Rate/Rhythm: regular rate and regular rhythm Extremities: + edema ( trace distal BLE) Gastrointestinal (Abdomen): Inspection/Auscultation: normal bowel sounds Percussion/Palpation: abdomen soft; abdomen nontender Musculoskeletal: Extremities: strength 5/5 throughout Skin: no rashes, warm and dry Psychiatric: Orientation: alert, oriented to person and oriented to place Speech: normal rate/rhythm/volume of speech Results & Data Vital Signs (Past 12 Hours) Vital Signs Temp Pulse Resp BP Pulse Ox O2 Del Method 11/17/22 07:22 36.6 C 76 16 175/80 H 96 Room Air Laboratory Results 11/17/22 07:37 11/15/22 06:51 (3) HTN (hypertension) Hypertension type: unspecified Qualified Code(s): I10 - Essential (primary) hypertension
[2022-11-17] MEDS: POLYETHYLENE (MIRALAX) 17 GM PACK PO SCH (12:58)
[2022-11-17] MEDS: GABAPENTIN 100 MG CAP PO SCH ×2 (12:59→20:07)
[2022-11-17] MEDS: IRON SUCROSE 300 MG in SODIUM CHLORIDE 0.9% 250 ML IV SCH (13:03)
[2022-11-17 13:14] LABS: Calcium 8.4 mg/dl (8.6-10.3); Creatinine Clr Calc Pharmacy 27.4 ml/min; Est GFR (African American) 33.9 ml/min; Est GFR (Non-African American) 29.2 ml/min; Potassium 3.8 mmol/L (3.5-5.1)
[2022-11-17] MEDS ORDERED: hydrALAZINE HCL 20 MG/ML VIAL IV PRN (18:26)
[2022-11-17] MEDS: LOSARTAN POTASSIUM 50 MG TAB PO SCH (18:29)
[2022-11-17] MEDS: oxyCODONE HCL IR 5 MG TAB (IMMEDIATE RELEASE) PO PRN (18:31)
[2022-11-17] MEDS: tiZANidine HCL 4 MG TABLET PO SCH (20:06)
[2022-11-17] MEDS: rOPINIRole HCL 2 MG TABLET PO SCH (20:07)
[2022-11-17] MEDS: ESCITALOPRAM OXALATE 20 MG TAB PO SCH (20:07)
[2022-11-17] MEDS: FAMOTIDINE 10 MG TABLET PO SCH (20:08)
[2022-11-17] MEDS: hydrALAZINE HCL 25 MG TAB PO SCH (20:08)
[2022-11-18] MEDS: oxyCODONE HCL IR 5 MG TAB (IMMEDIATE RELEASE) PO PRN ×3 (05:40→18:14)
[2022-11-18] MEDS: LEVOTHYROXINE SODIUM 75 MCG TABLET PO SCH (05:41)
[2022-11-18] MEDS: APIXABAN 5 MG TABLET PO SCH ×2 (05:41→16:50)
[2022-11-18 07:37] LABS: Basophils # (auto) 0.11 K/uL (0.00-0.20); Basophils % (auto) 1.6 %; Eosinophils # (auto) 0.01 K/uL (0.00-0.50); Eosinophils % (auto) 0.1 %; Hematocrit (blood only) 22.8 % (37.0-47.0); Hemoglobin 7.1 g/dl (12.0-16.0); Immature Granulocytes # (auto) 0.07 K/uL (0.01-0.20); Lymphocytes # (auto) 2.08 K/uL (1.20-3.40); Lymphocytes % (auto) 30.7 %; Mean Corpuscular Hemoglobin 29.3 pg (25.0-34.0); Mean Corpuscular Hgb Conc 31.1 g/dL (32.0-36.0); Mean Corpuscular Volume 94.2 fL (80.0-100.0); Mean Platelet Volume 8.7 fL (9.4-12.4); Monocytes # (auto) 1.03 K/uL (0.11-0.59); Monocytes % (auto) 15.2 %; Neutrophils # (auto) 3.47 K/uL (1.40-6.50); Neutrophils % (auto) 51.4 %; Platelet Count 345 K/uL (130-400); RDW Coefficient of Variation 15.2 % (11.5-14.5); RDW Standard Deviation 52.6 fL (36.4-46.3); Red Blood Count 2.42 M/uL (4.20-5.40); White Blood Count 6.77 K/ul (4.8-10.8)
[2022-11-18] MEDS: NIFEdipine EXTENDED REL 30 MG TABCR PO SCH (07:38)
[2022-11-18] MEDS: LEFLUNOMIDE 10 MG TAB PO SCH (07:38)
[2022-11-18] MEDS: POLYETHYLENE (MIRALAX) 17 GM PACK PO SCH (07:38)
[2022-11-18] MEDS: GABAPENTIN 100 MG CAP PO SCH ×3 (07:39→20:39)
[2022-11-18] MEDS: carvediloL 6.25 MG TAB PO SCH ×2 (07:39→20:39)
[2022-11-18] MEDS: hydrOXYzine HCl 25 MG TAB PO SCH ×3 (07:39→20:48)
[2022-11-18] MEDS: LOSARTAN POTASSIUM 50 MG TAB PO SCH (07:40)
[2022-11-18] MEDS: predniSONE 5 MG TAB PO SCH (07:40)
[2022-11-18] MEDS: FOLIC ACID 1 MG TAB PO SCH (07:40)
[2022-11-18] MEDS: hydrALAZINE HCL 25 MG TAB PO SCH ×3 (07:40→20:43)
[2022-11-18] MEDS: PANTOprazole 40 MG TAB PO SCH ×2 (07:40→20:39)
[2022-11-18] MEDS: TIMOLOL MALEATE 0.5% OP SOLN 5 ML BTL OP SCH ×2 (07:41→20:40)
[2022-11-18] MEDS: BRIMONIDINE TARTRATE 0.2% 5ML OP SCH ×2 (07:41→20:40)
[2022-11-18 07:52] LABS: BUN Creatinine Ratio 20.3 (10-20); Calcium 7.9 mg/dl (8.6-10.3); Creatinine Clr Calc Pharmacy 25.6 ml/min; Est GFR (African American) 31.1 ml/min; Est GFR (Non-African American) 26.8 ml/min; Potassium 3.8 mmol/L (3.5-5.1)
[2022-11-18 08:03] LABS: Polychromasia 1+
[2022-11-18] MEDS ORDERED: SODIUM CHLORIDE 0.9% 250 ML IV PRN (12:24)
[2022-11-18] MEDS ORDERED: diphenhydrAMINE Capsule 25 MG CAP PO ONE (12:24)
[2022-11-18] MEDS ORDERED: ACETAMINOPHEN 325 MG TAB PO ONE (12:24)
--- NOTE | 2022-11-18 14:10 | Hospitalist Progress Note ---
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 Patient presented with BLE swelling. US Doppler positive for RLE DVT. VQ scan low probability of PE. Was on Heparin Drip initially, now transitioned to eliquis since 11/07/22. In view of Hb drop and bloody BM reported by RN this afternoon, eliquis is held pending GI eval 11/17 Hg 8.4 --> 7.4--> 7.5--> 7.9 s/p EGD s/p Colonoscopy: (+) rectal ulcer, possible source of bleeding discussed with Dr. Parrish- Eliquis resumed 11/16 monitor closely Hg tomorrow 11/18 on Eliquis monitor Possible GI Bleed Acute on chronic anemia: Baseline hemoglobin appears around 9-10. Admitting hemoglobin of 9, dropped to 8.1 next day. FOBT was reported to be positive, taken prior to resuming heparin drip due to aforementioned hemoglobin drop noted. Got 1 Unit PRBC. GI had evaluated before and recommended outpatient follow up for scopes. 11/17 management per above Completed Venofer Day 05/12 s/p EGD s/p Colonoscopy: (+) rectal ulcer, possible source of bleeding 11/18 no signs of GI bleed but Hg 7.1 1 unit pRBC ordered repeat Hg at 4pm Acute kidney injury superimposed on chronic kidney disease stage III: Baseline creatinine around 1.5-1.6 Admitting creatinine of 2.9. Cr improved to 1.46 and then trended up. Cr was 2.01 on 11/08/22. Currently 2.11 today Lasix held. 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 3/ ECHO w/ EF of 65-70%, grade I diastolic dysfunction. 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 She was covered in urine and feces when she was brought to the ED. CPK level minimally elevated, no rhabdomyolysis. 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 resolved Mild elevated troponin: Likely from her acute illness and DENNIS over CKD. Patient with no chest pain. EKG with no acute ST or T changes. Hypertension: Continue nifedipine. Continue to hold irbesartan Continue hydralazine 50mg TID and Increased Coreg 6.25mg bid May need further adjustments based on trend 11/17 improving continue to monitor Rheumatoid arthritis: Home leflunomide and prednisone were held on admission due to infection Continue home prednisone She has multiple arthritic joints and gets shots at her hips and knees at r heumatology office. Continue follow up with Primary Rheum outpatient Depression: On Lexapro Restless leg syndrome: On ropinirole DVT prophylaxis: Eliquis held as above Patient's brother Johnathon and [id number] Kristine [[phone]] Admission and Anticipated Discharge Date Admission Date: November 01, 2022 Subjective ff up for acute dvt, etc seen resting in bed, comfortable sitting up having intermittent leg spasms no abdominal pain, nausea/vomiting no melena/hematochezia no chest pain, dyspnea, palpitations, dizziness no other symptoms Review of Systems Review of Systems: all noted and negative except for above Physical Exam Physical Exam: General- oriented x 3, not in distress, speaks in sentences with no effort or accessory muscle use Eyes- anicteric Neck- no JVD Lungs- clear breath sounds bilaterally, no crackles/wheezing Heart- normal rate, regular rhythm; no murmurs Abdomen- normal bowel sounds, nondistended, soft, nontender Extremities- R: mild pretibial edema, no calf tenderness Neuro- alert, oriented x 3; no gross focal neurologic deficits Skin- warm & dry Results & Data Results & Data Vital Signs (Past 12 Hours) Vital Signs Temp Pulse Resp BP Pulse Ox O2 Del Method 11/18/22 07:47 36.6 C 70 16 177/90 H 98 Room Air all noted and reviewed including below
[2022-11-18] MEDS ORDERED: FUROSEMIDE 20 MG TAB PO ONE (14:46)
[2022-11-18 18:29] LABS: Hematocrit (blood only) 27.6 % (37.0-47.0); Hemoglobin 8.9 g/dl (12.0-16.0)
[2022-11-18] MEDS: rOPINIRole HCL 2 MG TABLET PO SCH (20:39)
[2022-11-18] MEDS: ESCITALOPRAM OXALATE 20 MG TAB PO SCH (20:39)
[2022-11-18] MEDS: FAMOTIDINE 10 MG TABLET PO SCH (20:39)
[2022-11-18] MEDS: tiZANidine HCL 4 MG TABLET PO SCH (20:39)
[2022-11-18] MEDS: DICLOFENAC SOD 1% GEL 100 GM TUBE EXT PRN (20:44)
[2022-11-19] MEDS: APIXABAN 5 MG TABLET PO SCH ×2 (05:48→16:00)
[2022-11-19] MEDS: LEVOTHYROXINE SODIUM 75 MCG TABLET PO SCH (05:48)
[2022-11-19] MEDS: POLYETHYLENE (MIRALAX) 17 GM PACK PO SCH (07:29)
[2022-11-19] MEDS: BRIMONIDINE TARTRATE 0.2% 5ML OP SCH ×2 (07:29→21:01)
[2022-11-19] MEDS: hydrOXYzine HCl 25 MG TAB PO SCH ×3 (07:30→21:03)
[2022-11-19] MEDS: predniSONE 5 MG TAB PO SCH (07:30)
[2022-11-19] MEDS: NIFEdipine EXTENDED REL 30 MG TABCR PO SCH (07:30)
[2022-11-19] MEDS: PANTOprazole 40 MG TAB PO SCH ×2 (07:30→21:03)
[2022-11-19] MEDS: FOLIC ACID 1 MG TAB PO SCH (07:31)
[2022-11-19] MEDS: hydrALAZINE HCL 25 MG TAB PO SCH ×3 (07:31→21:02)
[2022-11-19] MEDS: LOSARTAN POTASSIUM 50 MG TAB PO SCH (07:31)
[2022-11-19] MEDS: GABAPENTIN 100 MG CAP PO SCH ×3 (07:31→21:03)
[2022-11-19] MEDS: carvediloL 6.25 MG TAB PO SCH ×2 (07:31→21:03)
[2022-11-19] MEDS: LEFLUNOMIDE 10 MG TAB PO SCH (07:32)
[2022-11-19] MEDS: TIMOLOL MALEATE 0.5% OP SOLN 5 ML BTL OP SCH ×2 (07:32→21:02)
[2022-11-19 07:33] LABS: Basophils # (auto) 0.09 K/uL (0.00-0.20); Basophils % (auto) 1.1 %; Hematocrit (blood only) 27.9 % (37.0-47.0); Hemoglobin 9.3 g/dl (12.0-16.0); Immature Granulocytes # (auto) 0.09 K/uL (0.01-0.20); Immature Granulocytes % (auto) 1.1 %; Lymphocytes # (auto) 1.88 K/uL (1.20-3.40); Lymphocytes % (auto) 22.2 %; Mean Corpuscular Hemoglobin 29.8 pg (25.0-34.0); Mean Corpuscular Hgb Conc 33.3 g/dL (32.0-36.0); Mean Corpuscular Volume 89.4 fL (80.0-100.0); Mean Platelet Volume 8.6 fL (9.4-12.4); Monocytes # (auto) 1.15 K/uL (0.11-0.59); Monocytes % (auto) 13.6 %; Neutrophils # (auto) 5.27 K/uL (1.40-6.50); Platelet Count 348 K/uL (130-400); RDW Coefficient of Variation 16.1 % (11.5-14.5); RDW Standard Deviation 52.6 fL (36.4-46.3); Red Blood Count 3.12 M/uL (4.20-5.40); White Blood Count 8.48 K/ul (4.8-10.8)
[2022-11-19 07:49] LABS: BUN Creatinine Ratio 21.3 (10-20); Calcium 8.1 mg/dl (8.6-10.3); Creatinine Clr Calc Pharmacy 25.4 ml/min; Est GFR (African American) 30.9 ml/min; Est GFR (Non-African American) 26.7 ml/min; Potassium 3.8 mmol/L (3.5-5.1)
--- NOTE | 2022-11-19 12:51 | Hospitalist Progress Note ---
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 Patient presented with BLE swelling. US Doppler positive for RLE DVT. VQ scan low probability of PE. Was on Heparin Drip initially, now transitioned to eliquis since 11/07/22. In view of Hb drop and bloody BM reported by RN this afternoon, eliquis is held pending GI eval 11/17 Hg 8.4 --> 7.4--> 7.5--> 7.9 s/p EGD s/p Colonoscopy: (+) rectal ulcer, possible source of bleeding discussed with Dr. Parrish- Eliquis resumed 11/16 monitor closely Hg tomorrow 11/18 on Eliquis monitor 11/19 (+) BM this morning no signs of GI bleed recurrence today Hg stable continue Eliquis Possible GI Bleed Acute on chronic anemia: Baseline hemoglobin appears around 9-10. Admitting hemoglobin of 9, dropped to 8.1 next day. FOBT was reported to be positive, taken prior to resuming heparin drip due to aforementioned hemoglobin drop noted. Got 1 Unit PRBC. GI had evaluated before and recommended outpatient follow up for scopes. 11/17 management per above Completed Venofer Day 05/12 s/p EGD s/p Colonoscopy: (+) rectal ulcer, possible source of bleeding 11/18 no signs of GI bleed but Hg 7.1 1 unit pRBC ordered repeat Hg at 4pm 11/19 Hg stable- 9.3 Acute kidney injury superimposed on chronic kidney disease stage III: Baseline creatinine around 1.5-1.6 Admitting creatinine of 2.9. Cr improved to 1.46 and then trended up. Cr was 2.01 on 11/08/22. Currently 2.11 today Lasix held. May need lower doses in the future Continue to hold [facility]B Nephrology on board 11/16 Crea 1.8 --> 2.1 --> 1.8--> 1.6 Bilateral leg Edema: Patient with complaint of increased lower extremity edema, recently prescribed Lasix from PCP office for last 1 week [employer] BNP 93. 3/ ECHO w/ EF of 65-70%, grade I diastolic dysfunction. 11/02/22ECHO w/ ef of 65-70%, mild S, mild MR/TR Leg edema could be due to DENNIS vs diastolic heart failure exacerbation Lower extremity DVT likely contributory as well 11/19 resumed Lasix Acute UTI: Urine culture grew proteus Completed 7 days of IV ceftriaxone Weakness: Patient reported increasing weakness for 2 days [employer] -she was sitting in her chair and was not able to get up. She was covered in urine and feces when she was brought to the ED. CPK level minimally elevated, no rhabdomyolysis. Lumbar spine MRI from last year noted worsening multilevel degenerative changes with up to severe canal stenosis and mod b/l neuroforaminal stenosis This likely explains her progressive amb dysfunction Reports she gets intermittent hip/back injections outpatient PT/OT eval noted transition to [facility] when medically stable Diarrhea: For about a week [employer] Stool PCR was positive for EPEC. resolved Mild elevated troponin: Likely from her acute illness and DENNIS over CKD. Patient with no chest pain. EKG with no acute ST or T changes. Hypertension: Continue nifedipine. Continue to hold irbesartan Continue hydralazine 50mg TID and Increased Coreg 6.25mg bid May need further adjustments based on trend 11/19 improving continue to monitor Rheumatoid arthritis: Home leflunomide and prednisone were held on admission due to infection Continue home prednisone She has multiple arthritic joints and gets shots at her hips and knees at rheumatology office. Continue follow up with Primary Rheum outpatient Depression: On Lexapro Restless leg syndrome: On ropinirole DVT prophylaxis: Eliquis held as above Patient's brother Johnathon and [id number] Kristine [[phone]] Admission and Anticipated Discharge Date Admission Date: November 01, 2022 Subjective ff up acute dvt, etc seen resting in chair, comfortable states she feels fine overall still has some spasms bilateral upper legs, backside no lower leg pain no chest pain, dyspnea, palpitations, dizziness no abdominal pain no melena/hematochezia today Review of Systems Review of Systems: all noted and negative except for above Physical Exam Physical Exam: General- oriented x 3, not in distress, speaks in sentences with no effort or accessory muscle use Eyes- anicteric Neck- no JVD Lungs- clear BS BL Heart- normal rate, regular rhythm; no murmurs Abdomen- normal bowel sounds, nondistended, soft, nontender Extremities- no pretibial edema, no calf tenderness Neuro- alert, oriented x 3; no gross focal neurologic deficits Skin- warm & dry Results & Data Results & Data Vital Signs (Past 12 Hours) Vital Signs Temp Pulse Resp BP BP Pulse Ox O2 Del Method 11/19/22 08:25 77 145/83 H 11/19/22 07:15 36.5 C 76 18 181/93 H 95 Room Air 11/19/22 06:33 201/85 H 11/19/22 05:59 201/101 H 208/110 H all noted and reviewed including below
[2022-11-19] MEDS: oxyCODONE HCL IR 5 MG TAB (IMMEDIATE RELEASE) PO PRN ×2 (16:47→21:03)
[2022-11-19] MEDS: DICLOFENAC SOD 1% GEL 100 GM TUBE EXT PRN (21:00)
[2022-11-19] MEDS: rOPINIRole HCL 2 MG TABLET PO SCH (21:02)
[2022-11-19] MEDS: tiZANidine HCL 4 MG TABLET PO SCH (21:03)
[2022-11-19] MEDS: ESCITALOPRAM OXALATE 20 MG TAB PO SCH (21:03)
[2022-11-19] MEDS: FAMOTIDINE 10 MG TABLET PO SCH (21:45)
[2022-11-20] MEDS: LEVOTHYROXINE SODIUM 75 MCG TABLET PO SCH (05:48)
[2022-11-20] MEDS: APIXABAN 5 MG TABLET PO SCH (05:48)
[2022-11-20 06:16] LABS: Basophils # (auto) 0.09 K/uL (0.00-0.20); Basophils % (auto) 1.2 %; Hematocrit (blood only) 28.5 % (37.0-47.0); Hemoglobin 9.2 g/dl (12.0-16.0); Immature Granulocytes # (auto) 0.09 K/uL (0.01-0.20); Immature Granulocytes % (auto) 1.2 %; Lymphocytes # (auto) 1.87 K/uL (1.20-3.40); Mean Corpuscular Hemoglobin 29.3 pg (25.0-34.0); Mean Corpuscular Hgb Conc 32.3 g/dL (32.0-36.0); Mean Corpuscular Volume 90.8 fL (80.0-100.0); Mean Platelet Volume 8.4 fL (9.4-12.4); Monocytes # (auto) 1.02 K/uL (0.11-0.59); Monocytes % (auto) 13.1 %; Neutrophils # (auto) 4.73 K/uL (1.40-6.50); Neutrophils % (auto) 60.5 %; Platelet Count 329 K/uL (130-400); RDW Coefficient of Variation 15.8 % (11.5-14.5); RDW Standard Deviation 52.1 fL (36.4-46.3); Red Blood Count 3.14 M/uL (4.20-5.40)
[2022-11-20 06:31] LABS: BUN Creatinine Ratio 23.9 (10-20); Calcium 8.1 mg/dl (8.6-10.3); Creatinine Clr Calc Pharmacy 25.7 ml/min; Est GFR (African American) 31.3 ml/min; Potassium 3.7 mmol/L (3.5-5.1)
[2022-11-20] MEDS: hydrOXYzine HCl 25 MG TAB PO SCH ×2 (07:44→13:02)
[2022-11-20] MEDS: oxyCODONE HCL IR 5 MG TAB (IMMEDIATE RELEASE) PO PRN (07:44)
[2022-11-20] MEDS: hydrALAZINE HCL 25 MG TAB PO SCH ×2 (07:45→13:02)
[2022-11-20] MEDS: FOLIC ACID 1 MG TAB PO SCH (07:45)
[2022-11-20] MEDS: carvediloL 6.25 MG TAB PO SCH (07:45)
[2022-11-20] MEDS: LEFLUNOMIDE 10 MG TAB PO SCH (07:46)
[2022-11-20] MEDS: predniSONE 5 MG TAB PO SCH (07:46)
[2022-11-20] MEDS: PANTOprazole 40 MG TAB PO SCH (07:46)
[2022-11-20] MEDS: GABAPENTIN 100 MG CAP PO SCH ×2 (07:46→13:02)
[2022-11-20] MEDS: LOSARTAN POTASSIUM 50 MG TAB PO SCH (07:47)
[2022-11-20] MEDS: NIFEdipine EXTENDED REL 30 MG TABCR PO SCH (07:47)
[2022-11-20] MEDS: POLYETHYLENE (MIRALAX) 17 GM PACK PO SCH (07:47)
[2022-11-20] MEDS: TIMOLOL MALEATE 0.5% OP SOLN 5 ML BTL OP SCH (07:48)
[2022-11-20] MEDS: BRIMONIDINE TARTRATE 0.2% 5ML OP SCH (07:48)
[2022-11-20] MEDS ORDERED: FUROSEMIDE 20 MG TAB PO SCH (09:00)
--- NOTE | 2022-11-20 11:37 | Discharge Summary ---
Discharge Summary Date of Service November 20, 2022 Notes For Next Care Provider Medication Changes From Visit Please refer to medication reconciliation sheet. 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 Patient states increased lower extremity edema and her PCP has given Lasix which she is taking for last 1 week. Says her right lower extremity swelling is improved but left lower extremity still swollen. Since starting with Lasix she is having diarrhea. She also has a lot of arthritis and gets shots to her hips and knees very rheumatology. Lately her left knee and hip are bothering. Last 2 days she was sitting in her chair and she was not able to get up. Finally today her friend who is a nurse called her and advised her to call EMS which she was anyway thinking about it. Denies any fevers. Denies any nausea or vomiting. Has lower abdominal pain. Has burning micturition. Denies any headache. No earache or runny nose or sore throat. Patient was in deep sleep and has to be woken up and it took some time to her answer the questions. Seems her house was in deplorable condition and she was covered in urine and feces when she was brought in as per ER Past medical history as mentioned above Past surgical history bilateral knee arthroplasty, laparoscopic cholecystectomy, tonsillectomy, total hysterectomy Social history no smoking. Alcohol 1-2 drinks a week. No drug use Family history father has arthritis, [place]. Mother has [place]. Aunt has rheumatoid arthritis Admission Exam Per Admitting Provider General- Not in distress Head- atraumatic Eyes- PERRL. ENT- oropharynx clear Neck- supple, no JVD, Lungs- clear to auscultation no wheezing or crackles Heart- regular rhythm; no murmur, no gallop. Abdomen- normal bowel sounds, soft, nontender, no distension Extremities- b/l lower extremity edema present. left leg is somewhat erythematous Neuro- alert, oriented x 3; PERRL, no facial palsy; no dysarthria; obeys commands, moves extremities. 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 Patient presented with BLE swelling. US Doppler positive for RLE DVT. VQ scan low probability of PE. Was on Heparin Drip initially, now transitioned to eliquis since 11/07/22. In view of Hb drop and bloody BM reported by RN this afternoon, eliquis is held pending GI eval 11/17 Hg 8.4 --> 7.4--> 7.5--> 7.9 s/p EGD s/p Colonoscopy: (+) rectal ulcer, possible source of bleeding discussed with GI Dr. Parrish- Eliquis resumed 11/20 no signs of GI bleed recurrence Hg stable continue Eliquis Possible GI Bleed secondary to Rectal Ulcer Acute on chronic anemia: Baseline hemoglobin appears around 9-10. Admitting hemoglobin of 9, dropped to 8.1 next day. given 2 units pRBC total Completed Venofer x 3 days s/p EGD s/p Colonoscopy: (+) rectal ulcer, possible source of bleeding 11/20 Hg stable around 9 Acute kidney injury superimposed on chronic kidney disease stage III: Baseline creatinine around 1.5-1.6 Admitting creatinine of 2.9. Cr improved to 1.46 Nephrology consulted Crea improved to 1.6 repeat BMP in 3 days, monitor closely Bilateral leg Edema: Patient with complaint of increased lower extremity edema, recently prescribed Lasix from PCP office for last 1 week [employer] BNP 93. 3/ ECHO w/ EF of 65-70%, grade I diastolic dysfunction. 11/02/22ECHO w/ ef of 65-70%, mild S, mild MR/TR Leg edema could be due to DENNIS vs diastolic heart failure exacerbation Lower extremity DVT likely contributory as well 11/19 resumed Lasix 20mg // Acute UTI: Urine culture grew proteus Completed 7 days of IV ceftriaxone Weakness: Patient reported increasing weakness for 2 days CHE[employer]HER -she was sitting in her chair and was not able to get up. She was covered in urine and feces when she was brought to the ED. CPK level minimally elevated, no rhabdomyolysis. Lumbar spine MRI from last year noted worsening multilevel degenerative changes with up to severe canal stenosis and mod b/l neuroforaminal stenosis This likely explains her progressive amb dysfunction Reports she gets intermittent hip/back injections outpatient transition to [facility] ff up with Ortho and Pain management as outpatient Diarrhea: For about a week [employer] Stool PCR was positive for EPEC. resolved Mild elevated troponin: Likely from her acute illness and DENNIS over CKD. Patient with no chest pain. EKG with no acute ST or T changes. Hypertension: Currently on nifedipine 90 mg p.o. daily, carvedilol 6.25 mg twice daily, hydralazine 25 mg p.o. 3 times daily, losartan 50 mg p.o. daily Monitor closely Rheumatoid arthritis: Continue prednisone, leflunomide She has multiple arthritic joints and gets shots at her hips and knees at rheumatology office. Continue follow up with Primary Rheum outpatient Depression: On Lexapro Restless leg syndrome: On ropinirole Follow-up with primary care physician in 1 week Discharge Exam General- oriented x 3, not in distress, speaks in sentences with no effort or accessory muscle use Eyes- anicteric Neck- no JVD Lungs- clear breath sounds bilaterally, no rales/wheezes Heart- normal rate, regular rhythm; no murmurs Abdomen- normal bowel sounds, nondistended, soft, nontender Extremities-trace pretibial edema, no calf tenderness Neuro- alert, oriented x 3; no gross focal neurologic deficits Skin- warm & dry Updated Medication List Medication Instructions Recorded Confirmed Type levothyroxine 75 mcg tablet 75 mcg PO DAILYBB 11/18/20 11/01/22 History pantoprazole 40 mg tablet,delayed 40 mg PO QAM 11/18/20 11/01/22 History release nifedipine 90 mg tablet,extended 90 mg PO QAM 05/20/21 11/01/22 History release 24 hr hydrocodone 5 mg-acetaminophen 325 1 tab PO Q8H PRN Pain 06/01/21 11/01/22 History mg tablet prednisone 5 mg tablet 5 mg PO DAILY 09/05/21 11/01/22 History diclofenac sodium 2 % topical 1 packet topical BID PRN Pain 06/20/22 11/01/22 History solution in packet (Pen[place]aid) famotidine 10 mg tablet 10 mg PO HS 06/20/22 11/01/22 History magnesium oxide 500 mg tablet 500 mg PO HS 06/20/22 11/01/22 History ropinirole 2 mg tablet 2 mg PO HS 06/20/22 11/01/22 History tizanidine 4 mg capsule 4 mg PO HS 06/20/22 11/01/22 History brimonidine 0.2 %-timolol 0.5 % 1 drp ophthalmic (eye) BID 11/01/22 11/01/22 History eye drops (Combigan) escitalopram oxalate 20 mg tablet 20 mg PO QAM 11/01/22 11/01/22 History furosemide 20 mg tablet 20 mg PO DAILY PRN .edema 11/01/22 11/01/22 History hydroxyzine HCl 25 mg tablet 25 mg PO TID 11/01/22 11/01/22 History leflunomide 20 mg tablet 20 mg PO QAM 11/01/22 11/01/22 History apixaban 5 mg tablet (Eliquis) 5 mg PO UD #74 tabs 11/03/22 Rx carvedilol 6.25 mg tablet 6.25 mg PO AMHS 30 days #30 tabs 11/20/22 Rx furosemide 20 mg tablet 20 mg PO MoWeFr@0900 30 days #13 11/20/22 Rx tabs gabapentin 100 mg capsule 200 mg PO TID 30 days #180 caps 11/20/22 Rx hydralazine 25 mg tablet 25 mg PO TID 30 days #90 tabs 11/20/22 Rx losartan 50 mg tablet 50 mg PO QAM 30 days #30 tabs 11/20/22 Rx Hospital Stay Data Consultations 10/31/22 23:41 ED Decision to Admit Stat 11/01/22 08:00 Consult Nephrology Routine 11/01/22 12:52 Consult Gastroenterology Routine 11/02/22 08:36 Consult Behavioral Health Liaison Routine 11/14/22 14:23 Consult Gastroenterology Routine Procedures Performed Operation Date: 11/16/22 17:30 Actual Procedures p EGD Biopsy Cytology - Fatuma Parrish DO s Colonoscopy Polypectomy - Fatuma Parrish DO Diagnostic Imagining Performed Laboratory Results WBC 7.80 K/ul (4.8-10.8) 11/20/22 05:58 RBC 3.14 M/uL (4.20-5.40) L 11/20/22 05:58 Hgb 9.2 g/dl (12.0-16.0) L 11/20/22 05:58 Hct 28.5 % (37.0-47.0) L 11/20/22 05:58 MCV 90.8 fL (80.0-100.0) 11/20/22 05:58 MCH 29.3 pg (25.0-34.0) 11/20/22 05:58 MCHC 32.3 g/dL (32.0-36.0) 11/20/22 05:58 RDW Std Deviation 52.1 fL (36.4-46.3) H 11/20/22 05:58 RDW Coeff of Mario 15.8 % (11.5-14.5) H 11/20/22 05:58 Plt Count 329 K/uL (130-400) 11/20/22 05:58 MPV 8.4 fL (9.4-12.4) L 11/20/22 05:58 Immature Gran % (Auto) 1.2 % 11/20/22 05:58 Neut % (Auto) 60.5 % 11/20/22 05:58 Lymph % (Auto) 24.0 % 11/20/22 05:58 [place] % (Auto) 13.1 % 11/20/22 05:58 Eos % (Auto) 0.0 % 11/20/22 05:58 Baso % (Auto) 1.2 % 11/20/22 05:58 Neut # (Auto) 4.73 K/uL (1.40-6.50) 11/20/22 05:58 Lymph # (Auto) 1.87 K/uL (1.20-3.40) 11/20/22 05:58 [place] # (Auto) 1.02 K/uL (0.11-0.59) H 11/20/22 05:58 Eos # (Auto) 0.00 K/uL (0.00-0.50) 11/20/22 05:58 Baso # (Auto) 0.09 K/uL (0.00-0.20) 11/20/22 05:58 Immature Gran # (Auto) 0.09 K/uL (0.01-0.20) 11/20/22 05:58 Polychromasia 1+ 11/18/22 06:24 Anisocytosis Present 11/16/22 09:17 Tear Drop Cells 1+ 11/16/22 09:17 Echinocytes 1+ 11/04/22 05:34 Acanthocytes (Spur) 2+ 11/17/22 07:37 PT 10.9 Seconds (9.0-12.0) 11/02/22 12:01 INR 1.0 (0.9-1.1) 11/02/22 12:01 APTT 27.4 Seconds (21.0-31.0) 11/09/22 06:01 PTT Ratio 1.0 11/09/22 06:01 Sodium 141 mmol/L (136-145) 11/20/22 05:58 Potassium 3.7 mmol/L (3.5-5.1) 11/20/22 05:58 Chloride 112 mmol/L (98-107) H 11/20/22 05:58 Carbon Dioxide 23 mmol/L (21-32) 11/20/22 05:58 Anion Gap 6 (3-11) 11/20/22 05:58 BUN 42 mg/dl (6-23) H 11/20/22 05:58 Creatinine 1.76 mg/dl (0.6-1.2) H 11/20/22 05:58 Est Cr Clr Drug Dosing 25.7 ml/min 11/20/22 05:58 Est GFR ( Amer) 31.3 ml/min 11/20/22 05:58 Est GFR (Non-Af Amer) 27.0 ml/min 11/20/22 05:58 BUN/Creatinine Ratio 23.9 (10-20) H 11/20/22 05:58 Glucose 86 mg/dl (70-99(Fasting)) 11/20/22 05:58 Estimat Average Glucose 97 mg/dl 11/01/22 04:52 Hemoglobin A1c 5.0 % (4.5-5.6) 11/01/22 04:52 Calcium 8.1 mg/dl (8.6-10.3) L 11/20/22 05:58 Phosphorus 4.5 mg/dl (2.5-4.9) 11/15/22 06:51 Magnesium 2.1 mg/dl (1.7-2.4) 11/15/22 06:51 Iron 15 mcg/dl (35-150) L 11/01/22 16:48 TIBC 238 mcg/dl (250-450) L 11/01/22 16:48 Unsaturated IBC 223 mcg/dl (155-355) 11/01/22 16:48 Transferrin % Sat 6 % (15-50) L 11/01/22 16:48 Ferritin 164.4 ng/ml (8-388) 11/01/22 16:48 Total Bilirubin 0.5 mg/dl (0.2-1.0) 11/08/22 07:46 AST 95 U/L (13-39) H 11/08/22 07:46 ALT 72 U/L (7-52) H 11/08/22 07:46 Alkaline Phosphatase 67 U/L (34-104) 11/08/22 07:46 Total Creatine Kinase 286 U/L (26-192) H 11/01/22 04:52 Troponin I High Sens 27.5 pg/ml (0-14) H 10/31/22 21:11 B-Natriuretic Peptide 95 pg/ml (0-100) 10/31/22 21:11 Total Protein 5.3 gm/dl (6.0-8.3) L 11/08/22 07:46 Albumin 2.8 gm/dl (3.4-5.0) L 11/08/22 07:46 Globulin 2.5 gm/dl (2.5-4.0) 11/08/22 07:46 Albumin/Globulin Ratio 1.1 (0.9-2) 11/08/22 07:46 Vitamin B12 > 1500 pg/ml (180-914) H 11/01/22 16:48 Folate 9.29 ng/ml (>5.38) 11/01/22 16:48 Urine Color Dark Yellow 10/31/22 22:08 Urine Appearance Turbid (Clear) A 10/31/22 22:08 Urine pH 8.5 (4.5-7.5) H 10/31/22 22:08 Ur Specific [place] 1.009 (1.000-1.030) 10/31/22 22:08 Urine Protein 1+ (Negative) H 10/31/22 22:08 Urine Glucose (UA) Negative (Negative) 10/31/22 22:08 Urine Ketones Negative (Negative) 10/31/22 22:08 Urine Blood Trace (Negative) H 10/31/22 22:08 Urine Nitrite Negative (Negative) 10/31/22 22:08 Urine Bilirubin Negative (Negative) 10/31/22 22:08 Urine Urobilinogen Negative (Negative) 10/31/22 22:08 Ur Leukocyte Esterase 3+ (Negative) H 10/31/22 22:08 Urine WBC (Auto) >30 /hpf (0-5) H 10/31/22 22:08 Urine RBC (Auto) 0-4 /hpf (0-4) 10/31/22 22:08 U Hyaline Cast (Auto) 0 /lpf (0-5) 10/31/22 22:08 U Epithel Cells (Auto) >30 /lpf (0-5) H 10/31/22 22:08 Urine Bacteria (Auto) 4+ (Negative) H 10/31/22 22:08 Stool Occult Bld Scrn Positive (Negative) A 11/01/22 11:24 Stl C. cayetanensis PCR Not Detected (NotDetected) 11/01/22 Unknown Stool Rotavirus A PCR Not Detected (NotDetected) 11/01/22 Unknown Stl Adenov F 40/41 PCR Not Detected (NotDetected) 11/01/22 Unknown Stool Astrovirus (PCR) Not Detected (NotDetected) 11/01/22 Unknown Stool Campylobacter PCR Not Detected (NotDetected) 11/01/22 Unknown Stl C. diff Tox B Gene Negative Cdiff Gene (Neg) 11/01/22 Unknown Stool Cryptosporidium PCR Not Detected (NotDetected) 11/01/22 Unknown Stl E.coli Shiga Tox PCR Not Detected (NotDetected) 11/01/22 Unknown Stl Enterotoxigenic E PCR Not Detected (NotDetected) 11/01/22 Unknown Stool EPEC (PCR) DETECTED (NotDetected) A* 11/01/22 Unknown Stool EAEC (PCR) Not Detected (NotDetected) 11/01/22 Unknown Stl E. histolytica PCR Not Detected (NotDetected) 11/01/22 Unknown Stool Giardia Lamblia PCR Not Detected (NotDetected) 11/01/22 Unknown Stool Salmonella PCR Not Detected (NotDetected) 11/01/22 Unknown Stool Sapovirus (PCR) Not Detected (NotDetected) 11/01/22 Unknown Stl P. shigelloides PCR Not Detected (NotDetected) 11/01/22 Unknown Stl Shigella/EIEC PCR Not Detected (NotDetected) 11/01/[address]enterocolitica PCR Not Detected (NotDetected) 11/01/22 Unknown Stool Vibrio (PCR) Not Detected (NotDetected) 11/01/22 Unknown Stl Vibrio cholerae PCR Not Detected (NotDetected) 11/01/22 Unknown Stl Norovirus GI/GII PCR Not Detected (NotDetected) 11/01/22 Unknown SARS-CoV-2 (PCR) NEGATIVE (Negative) 11/20/22 10:25 Blood Type B Negative 11/18/22 12:56 Antibody Screen NEGATIVE 11/18/22 12:56 Crossmatch See Detail 11/18/22 12:56 Impressions Venous Doppler Study 11/01/22 02:40 BILATERAL LOWER EXTREMITY VENOUS DOPPLER HISTORY: Acute pain and swelling of the lower legs lower extremity edema dvt? COMPARISON STUDY: 03/24/2017 FINDINGS: Subcutaneous limits evaluation of the lower leg deep veins. RIGHT: Occlusive thrombus extends from the mid to distal superficial femoral vein into the popliteal and posterior tibial veins. The anterior tibial and peroneal veins appear patent. LEFT: No DVT. IMPRESSION: 1. Right lower extremity DVT, likely acute. 2. No DVT of the left lower extremity. ACT 112: Negative or not required by law. Electronically signed by: Nci Winters M.D. 11/01/2022 6:47 AM Pulmonary Perfusion Imaging 11/01/22 09:36 NM pul perfusion CLINICAL HISTORY: ac dvt, r/o pe Technique: Perfusion imaging was performed in multiple projections after the intravenous injection of 5.3 mCi of Tc-99m labeled macroaggregated albumin (MAA). Comparison: None available at the time of this dictation. FINDINGS/IMPRESSION: Homogeneous perfusion was seen bilaterally. Low probability of pulmonary embolism. ACT 112: Negative or not required by law. Electronically signed by: Gui Coy M.D. 11/01/2022 1:13 PM Chest X-Ray 11/03/22 16:53 XR chest 1V portable CLINICAL HISTORY: needs o2, new lung crackles TECHNIQUE: Single frontal radiograph of the chest was obtained. Comparison: Comparison is made to chest radiograph 10/31/2022 FINDINGS: No lines and tubes are seen. The cardiomediastinal silhouette is normal. Reticular interstitial opacities are seen. No evidence of pleural effusion or pneumothorax. IMPRESSION: No acute abnormalities and in particular no radiographic evidence of pneumonia. Chronic interstitial disease. ACT 112: Negative or not required by law. Electronically signed by: Gui Coy M.D. 11/03/2022 5:50 PM 11/01/22 02:40 US venous doppler LE BI Urgent Pending Results Patient Have Any Pending Studies at Discharge: Yes Discharge Instructions Given to Patient (Per Discharging Provider) Please refer to accompanying hospital discharge summary for further details. Next Total Time Total Time Spent Total Time Spent (In Minutes): >30 minutes
== END 2022-11-20 14:13 | DRG 299 ==
LOC: ED 20:47 → EDINP 11-01 01:02 → SUATTDRO 11-01 01:02 → 2N 11-01 02:35 → 3E 11-12 15:04

== ENCOUNTER 2023-09-28 18:54 | Inpatient (IN) ==
[2023-09-28] MEDS: ONDANSETRON INJ 2 MG/ML 2 ML VIAL ONE (19:10)
--- NOTE | 2023-09-28 19:16 | Emergency Department Note ---
Impression & Plan Respiratory failure, Aspiration pneumonia, Hypoxia, Acute hypotension, Sepsis ED Provider Note NAME: LADAN RUELAS AGE: 82 SEX: F : 1940 ARRIVES VIA: Ambulance INFORMANT: EMS ED PROVIDER(S): Austin Rashid DO CHIEF COMPLAINT: Respiratory distress HPI: Patient is an 82-year-old female with a past medical history of neuropathy, hypertension, CKD, respiratory failure, DVT who presents to the ER for respiratory distress. Per the history from EMS patient was found to be short of breath and they were called to evaluate the patient. She was found to be hypoxic at 70%. She was brought in. As the ambulance pulled up to the hospital she started vomiting. She was not vomiting before hand. Patient is a DNR/DNI. Unable to obtain history from patient. ADDITIONAL HISTORY OBTAINED: Per HPI Chronic Medical/Social Conditions Affecting Care: Per HPI PAST MEDICAL HISTORY:See Below PAST SURGICAL HISTORY:See Below FAMILY HISTORY:See Below SOCIAL HISTORY:See Below HOME MEDICATIONS:See Below ALLERGIES:See Below VITALS:See Below PHYSICAL EXAMINATION: GENERAL: Sitting up in bed, awake, ill-appearing, vomiting, on a nonrebreather EYE EXAM: normal conjunctiva. PERRL and EOM's grossly intact. OROPHARYNX:mucous membranes are moist NECK: supple, no nuchal rigidity, no adenopathy, non-tender LUNGS: Diminished bilaterally. Normal chest wall mechanics HEART: no murmurs, S1 normal and S2 normal ABDOMEN: abdomen soft, non-tender, normo-active bowel sounds, no masses, no rebound or guarding. UPPER EXTREMITIES: upper extremities are grossly normal. LOWER EXTREMITIES: Pitting edema bilaterally. Erythema over the left anterior kay with a left heel wound NEURO EXAM: Awake but not following commands or answering questions. MEDICAL DECISION MAKING: Patient is an 82-year-old female brought in by EMS hypoxic on nonrebreather. IV was established blood work was obtained. She was awake but not following commands or answering questions. History is otherwise limited. She is a DNR/DNI per review of her records present at bedside. I contacted [facility] and spoke with the charge nurse who notes that the patient is a DNR/DNI and confirms. I spoke with the brother who notes and agrees that the patient is DNR/DNI. He notes that she would not want any aggressive measures. She would not want dialysis, chest compressions, tube or a large bore IV for IV pressors. Is agreeable to peripheral pressors if needed. Patient was given IV antibiotics. She did drop her pressure into the 80s and was given a liter of IV fluids. Chest x-ray favor is bilateral pneumonia. Patient remained on a nonrebreather at [address] on BiPAP as she was vomiting. Vomiting stopped after Zofran. Duplex of the left lower extremity was obtained but pending due to the protracted waits with stat rad. Case was discussed with the hospitalist and patient was admitted for further workup as a DNR/DNI. I did order Levophed but was not started as her pressures responded to IV fluids. I spoke with her brother on 3 separate occasions as well. They will not be able to come up as both he and his are having medical problems as well. Consults/Care Managements Discussions: Per [facility] Triage Nursing notes reviewed. Limited review of prior medical records performed Vital Signs: reviewed and remarkable for hypoxic, tachycardic, tachypneic Differential diagnosis: Differential diagnoses includes but is not limited to pneumonia, bronchitis, COPD/Asthma exacerbation, pneumothorax, pulmonary embolism, congestive heart failure, acute coronary syndrome ER treatment provided: See below Diagnostics interpreted by me include EKG and cardiac monitoring as listed below: -Cardiac Monitoring: An order was placed for continuous cardiac monitoring. The monitor shows a rate of 120 with sinus rhythm. -ECG: Sinus tachycardia rate of [address] changes in the high lateral leads QTc 422 -Laboratory studies:Interpreted by me as stated above in MDM and shown below. Imaging studies: Xrays: As interpreted by me: Portable AP upright 1 view of the chest shows bilateral infiltrates in the lower lobes with subtle upper lobe opacities CTs show: none Procedures:none Critical Care: I have personally spent 80 minutes of critical care time in the direct management of this patient. This includes bedside care, interpretation of diagnostic studies, and testing, discussion with consultants, patient, and family members, and other required patient management activities. This 80 minutes is in excess of all separately billable procedures. Past Med/Surg History Problem List (Updated 09/28/23 @ 23:24 by Austin Rashid DO) Sepsis (Acute) Acute hypotension (Acute) Hypoxia (Acute) Aspiration pneumonia (Acute) Respiratory failure (Acute) Degenerative spondylolisthesis Scoliosis of lumbar region due to degenerative disease of spine in adult Painful orthopaedic hardware Encounter for pre-operative examination Occult blood positive stool DVT (deep venous thrombosis) Anemia Generalized weakness (Acute) Non-ST elevation VT (NSTEMI) (Acute) Bilateral edema of lower extremity (Acute) Acute kidney injury superimposed on chronic kidney disease (Acute) Acute UTI (urinary tract infection) (Acute) Greater trochanteric bursitis of left hip Bilateral leg edema Acute hypoxemic respiratory failure Community acquired pneumonia Hypoxia (Acute) Aspiration pneumonia (Acute) Elevated troponin (Acute) Weakness (Acute) Gastroenteritis (Acute) Hypertensive urgency Elevated troponin (Acute) Lumbar spinal stenosis Severe at L2-S1 DVT prophylaxis Acute kidney injury superimposed on CKD Weakness (Acute) Fatigue (Acute) HTN (hypertension) (Chronic) Spinal stenosis, lumbar region with neurogenic claudication CKD (chronic kidney disease), stage III Hypothyroidism Depression Neuropathy (Chronic) FEET Osteoarthritis (Chronic) Restless leg syndrome (Chronic) Glaucoma (Chronic) Medical History (Updated 09/28/23 @ 23:24 by Austin Rashid DO) [facility] resident resident of [facility] Low hemoglobin and low hematocrit Dysphagia Gait abnormality Weakness Low back pain Personal history of venous thrombosis and embolism Other intestinal Escherichia coli infections Cognitive communication deficit Adult failure to thrive Herniated lumbar disc without myelopathy Left central disc herniation at L5-S1 Lumbar radiculopathy High cholesterol Anxiety Rheumatoid arthritis FOLLOWS DR. TREVINO Hypertension Surgical History History of total bilateral knee replacement (TKR) History of carpal tunnel release RIGHT HAND Hx of arthroscopy RIGHT KNEE (MENISCUS) Hx of tonsillectomy Hx of hysterectomy Hx laparoscopic cholecystectomy Family History Mother Family history of reaction to anesthesia SLOW TO AWAKEN Social History Smoking Status: Never smoker Second Hand Exposure: No; Do You Dip or Chew Tobacco: No; Tobacco Cessation Education Requested by Patient: No Hx Alcohol Use: No Hx Substance Use: No Preferred Language: Hebrew Communication Ability: Effective Visual Impairment: No Limitations Fish Bait Picker Required: No Beliefs That Will Affect Care: None marital status: Single Current Living Situation: Halfway Current Living Situation Comment: pt is resident at [facility] How many Children do You have: 0 Other Information That Helps Us Care for You: No Feels Safe at Home: Yes Safety Concerns: Feels Safe At This Time Assistive Devices: Glasses and Walker Allergies Allergies Allergy/AdvReac Type Severity Reaction Status Date / Time aspirin Allergy Severe ANAPHYLAXIS Verified 09/28/23 21:12 duloxetine [From Cymbalta] Allergy Intermediate Rash Verified 09/28/23 21:12 NSAIDS (Non-Steroidal Allergy Unknown Verified 09/28/23 21:12 Anti-Inflamma lisinopril AdvReac Intermediate Cough Verified 09/28/23 21:12 Home Meds Home Medications Medication Instructions Recorded Confirmed acetaminophen 325 mg tablet 650 mg PO Q6 PRN Fever Or Pain 09/28/23 09/28/23 (Tylenol) brimonidine 0.2 %-timolol 0.5 % 1 drp OPB BID 09/28/23 09/28/23 eye drops bumetanide 2 mg tablet 2 mg PO QAM 09/28/23 09/28/23 calcium carbonate 1,000 mg PO .Q2HR PRN .gerd 09/28/23 09/28/23 carboxymethylcellulose sodium 1 % 1 drp OPL Q6 PRN Dry Eyes 09/28/23 09/28/23 eye drops (Artificial Tears (carboxymethylcellulose)) carvedilol 12.5 mg tablet 12.5 mg PO AMHS 09/28/23 09/28/23 colestipol 1 gram tablet 2 g PO AMHS 09/28/23 09/28/23 diclofenac sodium 1 % topical gel 2 g topical QID 09/28/23 09/28/23 famotidine 10 mg tablet 10 mg PO HS 09/28/23 09/28/23 gabapentin 300 mg capsule 300 mg PO TID 09/28/23 09/28/23 hydralazine 50 mg tablet 75 mg PO QID 09/28/23 09/28/23 levothyroxine 75 mcg tablet 75 mcg PO QAM 09/28/23 09/28/23 loratadine 5 mg-pseudoephedrine ER 1 tab PO Q12H 09/28/23 09/28/23 120 mg tablet,extended release,12hr (Claritin-D 12 Hour) losartan 100 mg tablet 100 mg PO QAM 09/28/23 09/28/23 magnesium oxide 500 mg PO DAILY 09/28/23 09/28/23 ondansetron HCl 4 mg tablet 4 mg PO Q6H PRN Nausea 09/28/23 09/28/23 oxycodone 5 mg tablet 5 mg PO Q6 PRN .Pain 5-8 09/28/23 09/28/23 oxycodone 5 mg tablet 10 mg PO Q6 PRN .Pain 9-10 09/28/23 09/28/23 pantoprazole 40 mg tablet,delayed 40 mg PO DAILY 09/28/23 09/28/23 release polyethylene glycol 3350 17 gram 17 g PO DAILY 09/28/23 09/28/23 oral powder packet (Miralax) polysaccharide iron complex 150 mg 150 mg PO DAILY 09/28/23 09/28/23 iron capsule (Ferrex) potassium chloride 20 mEq 20 meq PO QAM 09/28/23 09/28/23 tablet,extended release(part/cryst) prednisone 5 mg tablet 5 mg PO DAILY 09/28/23 09/28/23 promethazine 25 mg/mL injection 25 mg IM Q6H PRN Nausea 09/28/23 09/28/23 solution (Phenergan) rivaroxaban 20 mg tablet (Xarelto) 20 mg PO QAM 09/28/23 09/28/23 ropinirole 2 mg tablet 2 mg PO HS 09/28/23 09/28/23 tizanidine 4 mg tablet 4 mg PO HS 09/28/23 09/28/23 travoprost 0.004 % eye drops 2 drp OPB QPM 09/28/23 09/28/23 venlafaxine 75 mg capsule,extended 75 mg PO QAM 09/28/23 09/28/23 release 24 hr (Effexor XR) venlafaxine 75 mg capsule,extended 150 mg PO .QAM 09/28/23 09/28/23 release 24 hr (Effexor XR) Results & Data (ED) Vital Signs Vital Signs - 24 hr 09/28/23 18:59 09/28/23 19:00 09/28/23 19:02 Temperature 38.4 C H Temperature Source Axillary Pulse Rate 110 H Pulse Rate [Apical] Pulse Rhythm Regular Pulse Rhythm [Apical] Respiratory Rate 37 H Respiratory Effort / Characteristics Labored Accessory Muscle Use Labored Respiratory Depth Deep Deep Respiratory Pattern Regular Blood Pressure 156/80 H Blood Pressure [Left Arm] Blood Pressure Mean 105 Blood Pressure Mean [Left Arm] Pulse Oximetry 94 94 Oxygen Delivery Method Non-rebreather Non-rebreather Non-rebreather Oxygen Flow Rate 15 15 15 Sepsis New/Unexplained Change in Mental Status Yes Sepsis Action Taken by Nursing Physician Notified Oxygen Flow Rate - Titration Pulse Oximetry Post Tiitration 09/28/23 19:02 09/28/23 19:15 09/28/23 20:00 Temperature Temperature Source Pulse Rate 110 H 104 H Pulse Rate [Apical] 93 H Pulse Rhythm Regular Pulse Rhythm [Apical] Regular Respiratory Rate 36 H 19 Respiratory Effort / Characteristics Non-Labored Spontaneous Respiratory Depth Normal Respiratory Pattern Regular Blood Pressure Blood Pressure [Left Arm] 105/43 L Blood Pressure Mean Blood Pressure Mean [Left Arm] 63 Pulse Oximetry 94 100 Oxygen Delivery Method Non-rebreather Non-rebreather Oxygen Flow Rate 15 15 Sepsis New/Unexplained Change in Mental Status Sepsis Action Taken by Nursing Oxygen Flow Rate - Titration Pulse Oximetry Post Tiitration 09/28/23 20:07 09/28/23 20:15 09/28/23 20:20 Temperature Temperature Source Pulse Rate Pulse Rate [Apical] 89 91 H Pulse Rhythm Pulse Rhythm [Apical] Respiratory Rate 22 22 Respiratory Effort / Characteristics Respiratory Depth Respiratory Pattern Blood Pressure Blood Pressure [Left Arm] 77/36 L 86/44 L Blood Pressure Mean Blood Pressure Mean [Left Arm] 49 58 Pulse Oximetry 100 100 99 Oxygen Delivery Method Non-rebreather Non-rebreather Non-rebreather Oxygen Flow Rate 15 10 10 Sepsis New/Unexplained Change in Mental Status Sepsis Action Taken by Nursing Oxygen Flow Rate - Titration 10 Pulse Oximetry Post Tiitration 100 09/28/23 20:30 09/28/23 20:32 09/28/23 20:45 Temperature Temperature Source Pulse Rate Pulse Rate [Apical] 90 95 H 95 H Pulse Rhythm Pulse Rhythm [Apical] Respiratory Rate 23 20 Respiratory Effort / Characteristics Respiratory Depth Respiratory Pattern Blood Pressure Blood Pressure [Left Arm] 101/51 L 103/54 L 110/61 Blood Pressure Mean Blood Pressure Mean [Left Arm] 67 70 77 Pulse Oximetry 99 98 97 Oxygen Delivery Method Non-rebreather Non-rebreather Non-rebreather Oxygen Flow Rate 10 10 10 Sepsis New/Unexplained Change in Mental Status Sepsis Action Taken by Nursing Oxygen Flow Rate - Titration Pulse Oximetry Post Tiitration 09/28/23 21:00 Temperature Temperature Source Pulse Rate Pulse Rate [Apical] 98 H Pulse Rhythm Pulse Rhythm [Apical] Respiratory Rate 20 Respiratory Effort / Characteristics Respiratory Depth Respiratory Pattern Blood Pressure Blood Pressure [Left Arm] 116/61 Blood Pressure Mean Blood Pressure Mean [Left Arm] 79 Pulse Oximetry 98 Oxygen Delivery Method Non-rebreather Oxygen Flow Rate 15 Sepsis New/Unexplained Change in Mental Status Sepsis Action Taken by Nursing Oxygen Flow Rate - Titration Pulse Oximetry Post Tiitration Laboratory Data 09/28/23 19:05 09/28/23 19:05 Lab Results 09/28/23 09/28/23 09/28/23 Range/Units 19:00 19:03 19:05 WBC 19.60 H (4.8-10.8) K/ul RBC 3.66 L (4.20-5.40) M/uL Hgb 11.1 L (12.0-16.0) g/dl POC Hgb (12.0-16.0) g/dl Hct 35.6 L (37.0-47.0) % POC Hct (37-47) % MCV 97.3 (80.0-100.0) fL MCH 30.3 (25.0-34.0) pg MCHC 31.2 L (32.0-36.0) g/dL RDW Std Deviation 58.9 H (36.4-46.3) fL RDW Coeff of Mario 16.4 H (11.5-14.5) % Plt Count 384 (130-400) K/uL MPV 8.6 L (9.4-12.4) fL Immature Gran % (Auto) 0.5 % Neut % (Auto) 91.3 % Lymph % (Auto) 3.4 % Nolan % (Auto) 4.3 % Eos % (Auto) 0.3 % Baso % (Auto) 0.2 % Neut # (Auto) 17.90 H (1.40-6.50) K/uL Lymph # (Auto) 0.67 L (1.20-3.40) K/uL Nolan # (Auto) 0.84 H (0.11-0.59) K/uL Eos # (Auto) 0.05 (0.00-0.50) K/uL Baso # (Auto) 0.04 (0.00-0.20) K/uL Immature Gran # (Auto) 0.10 (0.01-0.20) K/uL VBG pH 7.37 (7.36-7.41) VBG pCO2 47 (38-50) mmHg VBG pO2 54 mmHg VBG HCO3 27 mmol/L VBG O2 Saturation 85.7 % VBG Base Excess 1.5 mEq/L POC Sodium (135-144) mmol/L Sodium 135 L (136-145) mmol/L POC Potassium (3.3-5.0) mmol/L Potassium 4.9 (3.5-5.1) mmol/L POC Chloride (101-112) mmol/L Chloride 98 (98-107) mmol/L Carbon Dioxide 26 (21-32) mmol/L POC Total CO2 (24-31) mmol/L Anion Gap 11 (3-11) POC Anion Gap (16-25) mmol/L POC BUN (7-18) mg/dl BUN 59 H (6-23) mg/dl Creatinine 2.41 H (0.6-1.2) mg/dl POC Creatinine (0.6-1.3) mg/dl Est Cr Clr Drug Dosing 17.9 ml/min Est GFR ( Amer) 21.3 ml/min Est GFR (Non-Af Amer) 18.4 ml/min BUN/Creatinine Ratio 24.5 H (10-20) Glucose 125 H (70-99(Fasting)) mg/dl POC Glucose (other) (70-99) mg/dl Lactate 2.6 H* (0.4-2.0) mmol/L Calcium 9.2 (8.6-10.3) mg/dl POC Ioniz Calcium Marah (1.12-1.32) mmol/l Total Bilirubin 0.8 (0.2-1.0) mg/dl AST 29 (13-39) U/L ALT 19 (7-52) U/L Alkaline Phosphatase 106 H (34-104) U/L Troponin I High Sens 43.2 H (0-14) pg/ml B-Natriuretic Peptide 454 H (0-100) pg/ml Total Protein 7.2 (6.0-8.3) gm/dl Albumin 3.9 (3.4-5.0) gm/dl Globulin 3.3 (2.5-4.0) gm/dl Albumin/Globulin Ratio 1.2 (0.9-2) Lipase 12 (11-82) U/L Adenovirus (PCR) Not Detected (NotDetected) B. pertussis DNA (PCR) Not Detected (NotDetected) B.parapertussis DNA PCR Not Detected (NotDetected) C. pneumoniae DNA (PCR) Not Detected (NotDetected) Coronavirus OC43 (PCR) Not Detected (NotDetected) Coronavirus HKU1 (PCR) Not Detected (NotDetected) Coronavirus 229E (PCR) Not Detected (NotDetected) SARS-CoV-2 (PCR) Not Detected (NotDetected) Coronavirus NL63 (PCR) Not Detected (NotDetected) Human Metapneumovir PCR Not Detected (NotDetected) Influenza Type A (PCR) Not Detected (NotDetected) Influenza Type B (PCR) Not Detected (NotDetected) M. pneumoniae (PCR) Not Detected (NotDetected) Parainfluenza 1 (PCR) Not Detected (NotDetected) Parainfluenza 2 (PCR) Not Detected (NotDetected) Parainfluenza 3 (PCR) Not Detected (NotDetected) Parainfluenza 4 (PCR) Not Detected (NotDetected) RSV (PCR) Not Detected (NotDetected) Entero/Rhino (PCR) Not Detected (NotDetected) 09/28/23 Range/Units 19:14 WBC (4.8-10.8) K/ul RBC (4.20-5.40) M/uL Hgb (12.0-16.0) g/dl POC Hgb 11.6 L (12.0-16.0) g/dl Hct (37.0-47.0) % POC Hct 34 L (37-47) % MCV (80.0-100.0) fL MCH (25.0-34.0) pg MCHC (32.0-36.0) g/dL RDW Std Deviation (36.4-46.3) fL RDW Coeff of Mario (11.5-14.5) % Plt Count (130-400) K/uL MPV (9.4-12.4) fL Immature Gran % (Auto) % Neut % (Auto) % Lymph % (Auto) % Nolan % (Auto) % Eos % (Auto) % Baso % (Auto) % Neut # (Auto) (1.40-6.50) K/uL Lymph # (Auto) (1.20-3.40) K/uL Nolan # (Auto) (0.11-0.59) K/uL Eos # (Auto) (0.00-0.50) K/uL Baso # (Auto) (0.00-0.20) K/uL Immature Gran # (Auto) (0.01-0.20) K/uL VBG pH (7.36-7.41) VBG pCO2 (38-50) mmHg VBG pO2 mmHg VBG HCO3 mmol/L VBG O2 Saturation % VBG Base Excess mEq/L POC Sodium 134 L (135-144) mmol/L Sodium (136-145) mmol/L POC Potassium 4.9 (3.3-5.0) mmol/L Potassium (3.5-5.1) mmol/L POC Chloride 99 L (101-112) mmol/L Chloride (98-107) mmol/L Carbon Dioxide (21-32) mmol/L POC Total CO2 25 (24-31) mmol/L Anion Gap (3-11) POC Anion Gap 16.0 (16-25) mmol/L POC BUN 52 H (7-18) mg/dl BUN (6-23) mg/dl Creatinine (0.6-1.2) mg/dl POC Creatinine 2.8 H (0.6-1.3) mg/dl Est Cr Clr Drug Dosing ml/min Est GFR ( Amer) ml/min Est GFR (Non-Af Amer) ml/min BUN/Creatinine Ratio (10-20) Glucose (70-99(Fasting)) mg/dl POC Glucose (other) 132 H (70-99) mg/dl Lactate (0.4-2.0) mmol/L Calcium (8.6-10.3) mg/dl POC Ioniz Calcium Marah 1.07 L (1.12-1.32) mmol/l Total Bilirubin (0.2-1.0) mg/dl AST (13-39) U/L ALT (7-52) U/L Alkaline Phosphatase (34-104) U/L Troponin I High Sens (0-14) pg/ml B-Natriuretic Peptide (0-100) pg/ml Total Protein (6.0-8.3) gm/dl Albumin (3.4-5.0) gm/dl Globulin (2.5-4.0) gm/dl Albumin/Globulin Ratio (0.9-2) Lipase (11-82) U/L Adenovirus (PCR) (NotDetected) B. pertussis DNA (PCR) (NotDetected) B.parapertussis DNA PCR (NotDetected) C. pneumoniae DNA (PCR) (NotDetected) Coronavirus OC43 (PCR) (NotDetected) Coronavirus HKU1 (PCR) (NotDetected) Coronavirus 229E (PCR) (NotDetected) SARS-CoV-2 (PCR) (NotDetected) Coronavirus NL63 (PCR) (NotDetected) Human Metapneumovir PCR (NotDetected) Influenza Type A (PCR) (NotDetected) Influenza Type B (PCR) (NotDetected) M. pneumoniae (PCR) (NotDetected) Parainfluenza 1 (PCR) (NotDetected) Parainfluenza 2 (PCR) (NotDetected) Parainfluenza 3 (PCR) (NotDetected) Parainfluenza 4 (PCR) (NotDetected) RSV (PCR) (NotDetected) Entero/Rhino (PCR) (NotDetected) Administered Medications Discontinued Medications Piperacillin Sod/Tazobactam Sod (Zosyn) 4.5 gm in 100 mls @ 200 mls/hr IV NOW ONE Stop: 09/28/23 19:56 Last Infusion: 09/28/23 20:19 Dose: Infused Documented By: Admin: 09/28/23 19:42 Dose: 200 mls/hr Documented By: [place] Vancomycin HCl 1,500 mg/ (Sodium Chloride) 530 mls @ 200 mls/hr IV NOW ONE Stop: 09/28/23 22:05 Last Admin: 09/28/23 20:23 Dose: 200 mls/hr Documented By: [place] Acetaminophen (Ofirmev) 1,000 mg in 100 mls @ 400 mls/hr IV NOW STA Stop: 09/28/23 20:25 Last Infusion: 09/28/23 20:42 Dose: Infused Documented By: Admin: 09/28/23 20:25 Dose: 400 mls/hr Documented By: [place] Sodium Chloride (Nss) 1,000 mls @ 999 mls/hr IV .Q1H1M AMARI Stop: 09/28/23 22:30 Last Infusion: 09/28/23 21:30 Dose: Infused Documented By: Admin: 09/28/23 20:27 Dose: 999 mls/hr Documented By: AZ Sodium Chloride (Nss) 1,000 mls @ 999 mls/hr IV .Q1H1M ONE Stop: 09/28/23 21:29 Last Admin: 09/28/23 21:23 Dose: 999 mls/hr Documented By: AZ Ondansetron HCl (Ondansetron Inj 2 Mg/Ml 2 Ml Vial) Confirm Administered Dose 4 mg .ROUTE .STK-MED ONE Stop: 09/28/23 18:59 Last Admin: 09/28/23 19:10 Dose: 4 mg Documented By: [place] Imaging Data Radiologist's Impression: Chest X-Ray 09/28/23 19:00 XR chest 1V portable CLINICAL HISTORY: Chest pain, nonspecific TECHNIQUE: Single frontal radiograph of the chest was obtained. Comparison: Comparison is made to chest radiograph 11/03/2022 FINDINGS: No lines and tubes are seen. The cardiomediastinal silhouette is normal. Multifocal airspace opacities are seen. No evidence of pleural effusion or pneumothorax. IMPRESSION: Multifocal airspace opacities which may represent pneumonia, aspiration, or alveolar edema. ACT 112: Negative or not required by law. Electronically signed by: Gui Coy M.D. 09/28/2023 7:20 PM Discharge Plan Visit Data Chief Complaint: Cardiac Assessment Stated Complaint: CHF ED Provider: Austin Rashid Discharge Problem: Respiratory failure, Aspiration pneumonia, Hypoxia, Acute hypotension, Sepsis Patient Disposition: Admitted As Inpatient Discharge Instructions Interventions: ED Discharge Assessment Last Done: 09/28/23 21:44 Discharge Problem: Respiratory failure Qualifiers: Chronicity: acute Respiratory failure complication: unspecified whether with hypoxia or hypercapnia Qualified Code(s): J96.00 - Acute respiratory failure, unspecified whether with hypoxia or hypercapnia Aspiration pneumonia Qualifiers: Aspiration pneumonia type: unspecified Laterality: unspecified laterality Lung location: unspecified part of lung Qualified Code(s): J69.0 - Pneumonitis due to inhalation of food and vomit Sepsis Qualifiers: Sepsis type: sepsis due to unspecified organism Sepsis acute organ dysfunction status: unspecified Qualified Code(s): A41.9 - Sepsis, unspecified organism
--- NOTE | 2023-09-28 19:21 | XRay Report ---
XR chest 1V portable CLINICAL HISTORY: Chest pain, nonspecific TECHNIQUE: Single frontal radiograph of the chest was obtained. Comparison: Comparison is made to chest radiograph 11/03/2022 FINDINGS: No lines and tubes are seen. The cardiomediastinal silhouette is normal. Multifocal airspace opacitie s are seen. No evidence of pleural effusion or pneumothorax. IMPRESSION: Multifocal airspace opacities which may represent pneumonia, aspiration, or alveolar edema. ACT 112: Negative or not required by law. Electronically signed by: Gui Coy M.D. 09/28/2023 7:20 PM
[2023-09-28 19:27] LABS: iSTAT Creatinine 2.8 mg/dl (0.6-1.3); iSTAT Hemoglobin 11.6 g/dl (12.0-16.0); iSTAT Ionized Calcium 1.07 mmol/l (1.12-1.32); iSTAT Potassium 4.9 mmol/L (3.3-5.0)
[2023-09-28] MEDS ORDERED: VANCOMYCIN CONSULT ACTIVE PRN (19:27)
[2023-09-28 19:31] LABS: Base Excess VBG 1.5 mEq/L; HCO3 VBG 27 mmol/L; Oxygen Saturation VBG 85.7 %; PCO2 VBG 47 mmHg (38-50); PO2 VBG 54 mmHg; pH VBG 7.37 (7.36-7.41)
[2023-09-28 19:41] LABS: Hematocrit (blood only) 35.6 % (37.0-47.0); Hemoglobin 11.1 g/dl (12.0-16.0); Mean Corpuscular Hemoglobin 30.3 pg (25.0-34.0); Mean Corpuscular Hgb Conc 31.2 g/dL (32.0-36.0); Mean Corpuscular Volume 97.3 fL (80.0-100.0); Mean Platelet Volume 8.6 fL (9.4-12.4); Platelet Count 384 K/uL (130-400); RDW Coefficient of Variation 16.4 % (11.5-14.5); RDW Standard Deviation 58.9 fL (36.4-46.3); Red Blood Count 3.66 M/uL (4.20-5.40)
[2023-09-28] MEDS: PIPERACILLIN/TAZOBACTAM 4.5 GM/100 ML BAG IV ONE (19:42)
[2023-09-28 19:49] LABS: Albumin Globulin Ratio 1.2 (0.9-2); Albumin Level 3.9 gm/dl (3.4-5.0); BUN Creatinine Ratio 24.5 (10-20); Bilirubin,Total 0.8 mg/dl (0.2-1.0); Calcium 9.2 mg/dl (8.6-10.3); Creatinine Clr Calc Pharmacy 17.9 ml/min; Est GFR (African American) 21.3 ml/min; Est GFR (Non-African American) 18.4 ml/min; Globulin 3.3 gm/dl (2.5-4.0); Potassium 4.9 mmol/L (3.5-5.1); Total Protein 7.2 gm/dl (6.0-8.3)
[2023-09-28 19:56] LABS: Troponin I High Sensitivity 43.2 pg/ml (0-14)
[2023-09-28 20:01] LABS: Basophils # (auto) 0.04 K/uL (0.00-0.20); Basophils % (auto) 0.2 %; Eosinophils # (auto) 0.05 K/uL (0.00-0.50); Eosinophils % (auto) 0.3 %; Immature Granulocytes % (auto) 0.5 %; Lymphocytes # (auto) 0.67 K/uL (1.20-3.40); Lymphocytes % (auto) 3.4 %; Monocytes # (auto) 0.84 K/uL (0.11-0.59); Monocytes % (auto) 4.3 %; Neutrophils % (auto) 91.3 %
[2023-09-28 20:22] LABS: Adenovirus PCR Not Detected (NotDetected); Bordetella parapertussis PCR Not Detected (NotDetected); Bordetella pertussis PCR Not Detected (NotDetected); Chlamydia pneumoniae PCR Not Detected (NotDetected); Coronavirus 229E PCR Not Detected (NotDetected); Coronavirus CoV-2 (COVID19)PCR Not Detected (NotDetected); Coronavirus HKU1 PCR Not Detected (NotDetected); Coronavirus NL63 PCR Not Detected (NotDetected); Coronavirus OC43PCR Not Detected (NotDetected); Human Metapneumovirus PCR Not Detected (NotDetected); Influenza A PCR Not Detected (NotDetected); Influenza B PCR Not Detected (NotDetected); Mycoplasma pneumoniae PCR Not Detected (NotDetected); Parainfluenza Virus 1 PCR Not Detected (NotDetected); Parainfluenza Virus 2 PCR Not Detected (NotDetected); Parainfluenza Virus 3 PCR Not Detected (NotDetected); Parainfluenza Virus 4 PCR Not Detected (NotDetected); Respiratory Syncytial VirusPCR Not Detected (NotDetected); Rhinovirus/Enterovirus PCR Not Detected (NotDetected)
[2023-09-28] MEDS: VANCOMYCIN HCL 1,500 MG in SODIUM CHLORIDE 0.9% 500 ML IV ONE (20:23)
[2023-09-28] MEDS: ACETAMINOPHEN 1,000 MG/100 ML VIAL IV STA (20:25)
[2023-09-28] MEDS: SODIUM CHLORIDE 0.9% 1,000 ML IV SCH (20:27)
[2023-09-28] MEDS ORDERED: ONDANSETRON INJ 2 MG/ML 2 ML VIAL IV PRN (21:04)
--- NOTE | 2023-09-28 21:14 | History & Physical Report ---
Date of Service September 28, 2023 Assessment & Plan (1) Sepsis due to pneumonia: (2) Acute hypotension: (3) Acute respiratory failure with hypoxia: (4) DVT (deep venous thrombosis): (5) Non-ST elevation DE (NSTEMI): (6) Aspiration pneumonia: Plan Sepsis due to aspiration pneumonia/acute respiratory failure with hypoxia/acute hypotension- Admit to ICU overflow unit with likely need to transfer to ICU due to need for Levophed for pressure support. Chest x-ray with significant bilateral aspiration pneumonia, right greater than left Temperature 38.4. Heart rate initially 110, blood pressure at its lowest was 79/54. Lactate 2.6 with follow-up pending Blood pressure did respond with 2 L normal saline to 85-95/45-54 Systolic blood pressure did periodically drop into the upper 70s, and did respond to additional fluid boluses, with orders for Levophed should the blood pressure remain below 80 on 2 successive occasions or if MAP remains less than 65 on 2 separate occasions Initial antibiotics in the ED were vancomycin IV and Zosyn IV, with vancomycin IV discontinued due to renal dysfunction Maintenance antibiotics are Zyvox 6 mg IV every 12 hours and Zosyn 4.5 g IV every 8 hours Pulse ox was noted to be 70% when initially seen by EMS, and in the emergency department required 100% nonrebreather mask for pulse ox in the mid 90s. Duonebs every 4 hours while awake and every 2 hours when necessary. NPO Chronic prednisone use 5 mg daily Placed on low-dose Solu-Medrol 20 mg IV daily, for partial stress dosing and possible beneficial pulmonary fact Left lower extremity cellulitis/left heel ulcer- IV antibiotics as noted above wrote Elevated troponin/hypertension- Antihypertensives on hold due to low blood pressure associated with sepsis Initial troponin 43.2 with follow-ups ordered and pending Acute kidney injury superimposed on CKD- Creatinine 2.41, with base 2.07- IV fluids as noted above Repeat laboratories in a.m. Hold nephrotoxic agents Right lower extremity DVT history- Hold Xarelto after having received her last dose for evening of 09/27 If continues unresponsive and inability to take p.o. on 09/28, which start heparin drip 09/28 evening, when next Xarelto dose would be due History of Present Illness Chief Complaint: The patient presents to the emergency department via ambulance due to respiratory distress, as reported by EMS, who found the patient to be very short of breath when called to see the patient. Primary Care Provider: Girish Bauer III, MD The patient is a 82-year-old female with a past medical history including DVT right lower extremity, generalized weakness, non-STEMI, lower extremity edema, history of DENNIS superimposed on CKD, history of UTI, aspiration pneumonia, hypertensive urgency, lumbar spinal stenosis, hypothyroidism, depression, neuropathy and restless leg syndrome. EMS was called to see the patient due to report of acute shortness of breath, the patient was found to be 70% on room air, and vomited en route to the hospital. The patient himself is unable to contribute to HPI due to altered mental state, but she was noted to be DNR/DNI Allergies Allergy/AdvReac Type Severity Reaction Status Date / Time aspirin Allergy Severe ANAPHYLAXIS Verified 09/28/23 21:12 duloxetine [From Cymbalta] Allergy Intermediate Rash Verified 09/28/23 21:12 NSAIDS (Non-Steroidal Allergy Unknown Verified 09/28/23 21:12 Anti-Inflamma lisinopril AdvReac Intermediate Cough Verified 09/28/23 21:12 Home Medications Medication Instructions Recorded Confirmed Type acetaminophen 325 mg tablet 650 mg PO Q6 PRN Fever Or Pain 09/28/23 09/28/23 History (Tylenol) brimonidine 0.2 %-timolol 0.5 % 1 drp OPB BID 09/28/23 09/28/23 History eye drops bumetanide 2 mg tablet 2 mg PO QAM 09/28/23 09/28/23 History calcium carbonate 1,000 mg PO .Q2HR PRN .gerd 09/28/23 09/28/23 History carboxymethylcellulose sodium 1 % 1 drp OPL Q6 PRN Dry Eyes 09/28/23 09/28/23 History eye drops (Artificial Tears (carboxymethylcellulose)) carvedilol 12.5 mg tablet 12.5 mg PO AMHS 09/28/23 09/28/23 History colestipol 1 gram tablet 2 g PO AMHS 09/28/23 09/28/23 History diclofenac sodium 1 % topical gel 2 g topical QID 09/28/23 09/28/23 History famotidine 10 mg tablet 10 mg PO HS 09/28/23 09/28/23 History gabapentin 300 mg capsule 300 mg PO TID 09/28/23 09/28/23 History hydralazine 50 mg tablet 75 mg PO QID 09/28/23 09/28/23 History levothyroxine 75 mcg tablet 75 mcg PO QAM 09/28/23 09/28/23 History loratadine 5 mg-pseudoephedrine ER 1 tab PO Q12H 09/28/23 09/28/23 History 120 mg tablet,extended release,12hr (Claritin-D 12 Hour) losartan 100 mg tablet 100 mg PO QAM 09/28/23 09/28/23 History magnesium oxide 500 mg PO DAILY 09/28/23 09/28/23 History ondansetron HCl 4 mg tablet 4 mg PO Q6H PRN Nausea 09/28/23 09/28/23 History oxycodone 5 mg tablet 5 mg PO Q6 PRN .Pain 5-8 09/28/23 09/28/23 History oxycodone 5 mg tablet 10 mg PO Q6 PRN .Pain 9-10 09/28/23 09/28/23 History pantoprazole 40 mg tablet,delayed 40 mg PO DAILY 09/28/23 09/28/23 History release polyethylene glycol 3350 17 gram 17 g PO DAILY 09/28/23 09/28/23 History oral powder packet (Miralax) polysaccharide iron complex 150 mg 150 mg PO DAILY 09/28/23 09/28/23 History iron capsule (Ferrex) potassium chloride 20 mEq 20 meq PO QAM 09/28/23 09/28/23 History tablet,extended release(part/cryst) prednisone 5 mg tablet 5 mg PO DAILY 09/28/23 09/28/23 History promethazine 25 mg/mL injection 25 mg IM Q6H PRN Nausea 09/28/23 09/28/23 History solution (Phenergan) rivaroxaban 20 mg tablet (Xarelto) 20 mg PO QAM 09/28/23 09/28/23 History ropinirole 2 mg tablet 2 mg PO HS 09/28/23 09/28/23 History tizanidine 4 mg tablet 4 mg PO HS 09/28/23 09/28/23 History travoprost 0.004 % eye drops 2 drp OPB QPM 09/28/23 09/28/23 History venlafaxine 75 mg capsule,extended 75 mg PO QAM 09/28/23 09/28/23 History release 24 hr (Effexor XR) venlafaxine 75 mg capsule,extended 150 mg PO .QAM UD 09/28/23 09/28/23 History release 24 hr (Effexor XR) Past Med/Surg History Problem List (Updated 09/29/23 @ 04:03 by Tobin Horn MD) Acute respiratory failure with hypoxia Sepsis due to pneumonia Sepsis (Acute) Acute hypotension (Acute) Hypoxia (Acute) Aspiration pneumonia (Acute) Respiratory failure (Acute) Degenerative spondylolisthesis Scoliosis of lumbar region due to degenerative disease of spine in adult Painful orthopaedic hardware Encounter for pre-operative examination Occult blood positive stool DVT (deep venous thrombosis) Anemia Generalized weakness (Acute) Non-ST elevation DE (NSTEMI) (Acute) Bilateral edema of lower extremity (Acute) Acute kidney injury superimposed on chronic kidney disease (Acute) Acute UTI (urinary tract infection) (Acute) Greater trochanteric bursitis of left hip Bilateral leg edema Acute hypoxemic respiratory failure Community acquired pneumonia Hypoxia (Acute) Aspiration pneumonia (Acute) Elevated troponin (Acute) Weakness (Acute) Gastroenteritis (Acute) Hypertensive urgency Elevated troponin (Acute) Lumbar spinal stenosis Severe at L2-S1 DVT prophylaxis Acute kidney injury superimposed on CKD Weakness (Acute) Fatigue (Acute) HTN (hypertension) (Chronic) Spinal stenosis, lumbar region with neurogenic claudication CKD (chronic kidney disease), stage III Hypothyroidism Depression Neuropathy (Chronic) FEET Osteoarthritis (Chronic) Restless leg syndrome (Chronic) Glaucoma (Chronic) Medical History (Updated 09/29/23 @ 04:03 by Tobin Horn MD) shelter resident resident of [facility] Low hemoglobin and low hematocrit Dysphagia Gait abnormality Weakness Low back pain Personal history of venous thrombosis and embolism Other intestinal Escherichia coli infections Cognitive communication deficit Adult failure to thrive Herniated lumbar disc without myelopathy Left central disc herniation at L5-S1 Lumbar radiculopathy High cholesterol Anxiety Rheumatoid arthritis FOLLOWS DR. TREVINO Hypertension Surgical History History of total bilateral knee replacement (TKR) History of carpal tunnel release RIGHT HAND Hx of arthroscopy RIGHT KNEE (MENISCUS) Hx of tonsillectomy Hx of hysterectomy Hx laparoscopic cholecystectomy Family History Mother Family history of reaction to anesthesia SLOW TO AWAKEN Social History Smoking Status: Never smoker Second Hand Exposure: No; Do You Dip or Chew Tobacco: No; Tobacco Cessation Education Requested by Patient: No Hx Alcohol Use: No Hx Substance Use: No Preferred Language: Uzbek Communication Ability: Effective Visual Impairment: No Limitations Mailroom Assistant Required: No Beliefs That Will Affect Care: None marital status: Single Current Living Situation: Senior Living Current Living Situation Comment: pt is resident at [facility] How many Children do You have: 0 Other Information That Helps Us Care for You: No Feels Safe at Home: Yes Safety Concerns: Feels Safe At This Time Assistive Devices: Glasses and Walker Review of Systems Review of Systems: HPI and ROS are limited due to be decreased patient responsiveness Physical Exam Physical Exam: The patient is confused and disoriented, periodically moaning in pain. Well developed and well nourished, normocephalic and atraumatic, lying in bed and in otherwise no acute distress. HEENT--PERRL, EOMI, mucous membranes and oropharynx dry. Neck--supple. No JVD. No bruits. Thyroid normal, trachea midline, no adenopathy. Heart--normal S1 and S2. No murmurs, rubs or gallops. Lungs--clear bilaterally, no respiratory distress, no accessory muscle use. Abdomen--normal bowel sounds and soft. Nontender. Nondistended Extremities--no cyanosis or clubbing. No edema. Dermatologic--normal skin turgor, normal color, no abnormal lymph nodes, no rash. Neurologic--cranial nerves II through XII grossly intact. Rheumatologic--limited exam Psychiatric--confused and disoriented. Results & Data Results & Data Vital Signs (Past 12 Hours) Vital Signs Temp Pulse Pulse Resp BP BP Pulse Ox 09/28/23 21:00 98 H 20 116/61 98 09/28/23 20:30 90 101/51 L 99 09/28/23 20:20 91 H 22 86/44 L 99 09/28/23 20:15 89 22 77/36 L 100 09/28/23 20:07 100 09/28/23 20:00 93 H 19 105/43 L 100 09/28/23 19:15 104 H 09/28/23 19:02 110 H 36 H 94 09/28/23 19:02 09/28/23 19:00 38.4 C H 110 H 37 H 156/80 H 94 09/28/23 18:59 94 O2 Del Method O2 Flow Rate 09/28/23 21:00 Non-rebreather 15 09/28/23 20:30 Non-rebreather 10 09/28/23 20:20 Non-rebreather 10 09/28/23 20:15 Non-rebreather 10 09/28/23 20:07 Non-rebreather 15 09/28/23 20:00 Non-rebreather 15 09/28/23 19:15 09/28/23 19:02 Non-rebreather 15 09/28/23 19:02 Non-rebreather 15 09/28/23 19:00 Non-rebreather 15 09/28/23 18:59 Non-rebreather 15 Laboratory Results Laboratory Results WBC 19.60 K/ul (4.8-10.8) H 09/28/23 19:05 RBC 3.66 M/uL (4.20-5.40) L 09/28/23 19:05 Hgb 11.1 g/dl (12.0-16.0) L 09/28/23 19:05 POC Hgb 11.6 g/dl (12.0-16.0) L 09/28/23 19:14 Hct 35.6 % (37.0-47.0) L 09/28/23 19:05 POC Hct 34 % (37-47) L 09/28/23 19:14 MCV 97.3 fL (80.0-100.0) 09/28/23 19:05 MCH 30.3 pg (25.0-34.0) 09/28/23 19:05 MCHC 31.2 g/dL (32.0-36.0) L 09/28/23 19:05 RDW Std Deviation 58.9 fL (36.4-46.3) H 09/28/23 19:05 RDW Coeff of Mario 16.4 % (11.5-14.5) H 09/28/23 19:05 Plt Count 384 K/uL (130-400) 09/28/23 19:05 MPV 8.6 fL (9.4-12.4) L 09/28/23 19:05 Immature Gran % (Auto) 0.5 % 09/28/23 19:05 Neut % (Auto) 91.3 % 09/28/23 19:05 Lymph % (Auto) 3.4 % 09/28/23 19:05 Bowie % (Auto) 4.3 % 09/28/23 19:05 Eos % (Auto) 0.3 % 09/28/23 19:05 Baso % (Auto) 0.2 % 09/28/23 19:05 Neut # (Auto) 17.90 K/uL (1.40-6.50) H 09/28/23 19:05 Lymph # (Auto) 0.67 K/uL (1.20-3.40) L 09/28/23 19:05 Bowie # (Auto) 0.84 K/uL (0.11-0.59) H 09/28/23 19:05 Eos # (Auto) 0.05 K/uL (0.00-0.50) 09/28/23 19:05 Baso # (Auto) 0.04 K/uL (0.00-0.20) 09/28/23 19:05 Immature Gran # (Auto) 0.10 K/uL (0.01-0.20) 09/28/23 19:05 VBG pH 7.37 (7.36-7.41) 09/28/23 19:05 VBG pCO2 47 mmHg (38-50) 09/28/23 19:05 VBG pO2 54 mmHg 09/28/23 19:05 VBG HCO3 27 mmol/L 09/28/23 19:05 VBG O2 Saturation 85.7 % 09/28/23 19:05 VBG Base Excess 1.5 mEq/L 09/28/23 19:05 POC Sodium 134 mmol/L (135-144) L 09/28/23 19:14 Sodium 135 mmol/L (136-145) L 09/28/23 19:05 POC Potassium 4.9 mmol/L (3.3-5.0) 09/28/23 19:14 Potassium 4.9 mmol/L (3.5-5.1) 09/28/23 19:05 POC Chloride 99 mmol/L (101-112) L 07/19/24 19:14 Chloride 98 mmol/L (98-107) 09/28/23 19:05 Carbon Dioxide 26 mmol/L (21-32) 09/28/23 19:05 POC Total CO2 25 mmol/L (24-31) 09/28/23 19:14 Anion Gap 11 (3-11) 09/28/23 19:05 POC Anion Gap 16.0 mmol/L (16-25) 09/28/23 19:14 POC BUN 52 mg/dl (7-18) H 09/28/23 19:14 BUN 59 mg/dl (6-23) H 09/28/23 19:05 Creatinine 2.41 mg/dl (0.6-1.2) H 09/28/23 19:05 POC Creatinine 2.8 mg/dl (0.6-1.3) H 09/28/23 19:14 Est Cr Clr Drug Dosing 17.9 ml/min 09/28/23 19:05 Est GFR ( Amer) 21.3 ml/min 09/28/23 19:05 Est GFR (Non-Af Amer) 18.4 ml/min 09/28/23 19:05 BUN/Creatinine Ratio 24.5 (10-20) H 09/28/23 19:05 Glucose 125 mg/dl (70-99(Fasting)) H 09/28/23 19:05 POC Glucose (other) 132 mg/dl (70-99) H 09/28/23 19:14 Lactate 1.3 mmol/L (0.4-2.0) 09/28/23:24 Calcium 9.2 mg/dl (8.6-10.3) 09/28/23 19:05 POC Ioniz Calcium Marah 1.07 mmol/l (1.12-1.32) L 09/28/23 19:14 Total Bilirubin 0.8 mg/dl (0.2-1.0) 09/28/23 19:05 AST 29 U/L (13-39) 09/28/23 19:05 ALT 19 U/L (7-52) 09/28/23 19:05 Alkaline Phosphatase 106 U/L (34-104) H 09/28/23 19:05 Troponin I High Sens 181.2 pg/ml (0-14) H* D 09/28/23 21:24 B-Natriuretic Peptide 454 pg/ml (0-100) H 09/28/23 19:05 Total Protein 7.2 gm/dl (6.0-8.3) 09/28/23 19:05 Albumin 3.9 gm/dl (3.4-5.0) 09/28/23 19:05 Globulin 3.3 gm/dl (2.5-4.0) 09/28/23 19:05 Albumin/Globulin Ratio 1.2 (0.9-2) 09/28/23 19:05 Lipase 12 U/L (11-82) 09/28/23 19:05 Random Cortisol 20.56 mcg/dl 09/28/23 19:05 Adenovirus (PCR) Not Detected (NotDetected) 09/28/23 19:00 B. pertussis DNA (PCR) Not Detected (NotDetected) 09/28/23 19:00 B.parapertussis DNA PCR Not Detected (NotDetected) 09/28/23 19:00 C. pneumoniae DNA (PCR) Not Detected (NotDetected) 09/28/23 19:00 Coronavirus OC43 (PCR) Not Detected (NotDetected) 09/28/23 19:00 Coronavirus HKU1 (PCR) Not Detected (NotDetected) 09/28/23 19:00 Coronavirus 229E (PCR) Not Detected (NotDetected) 09/28/23 19:00 SARS-CoV-2 (PCR) Not Detected (NotDetected) 09/28/23 19:00 Coronavirus NL63 (PCR) Not Detected (NotDetected) 09/28/23 19:00 Human Metapneumovir PCR Not Detected (NotDetected) 09/28/23 19:00 Influenza Type A (PCR) Not Detected (NotDetected) 09/28/23 19:00 Influenza Type B (PCR) Not Detected (NotDetected) 09/28/23 19:00 M. pneumoniae (PCR) Not Detected (NotDetected) 09/28/23 19:00 Parainfluenza 1 (PCR) Not Detected (NotDetected) 09/28/23 19:00 Parainfluenza 2 (PCR) Not Detected (NotDetected) 09/28/23 19:00 Parainfluenza 3 (PCR) Not Detected (NotDetected) 09/28/23 19:00 Parainfluenza 4 (PCR) Not Detected (NotDetected) 09/28/23 19:00 RSV (PCR) Not Detected (NotDetected) 09/28/23 19:00 Entero/Rhino (PCR) Not Detected (NotDetected) 09/28/23 19:00 Impressions Chest X-Ray 09/28/23 19:00 XR chest 1V portable CLINICAL HISTORY: Chest pain, nonspecific TECHNIQUE: Single frontal radiograph of the chest was obtained. Comparison: Comparison is made to chest radiograph 11/03/2022 FINDINGS: No lines and tubes are seen. The cardiomediastinal silhouette is normal. Multifocal airspace opacities are seen. No evidence of pleural effusion or pneumothorax. IMPRESSION: Multifocal airspace opacities which may represent pneumonia, aspiration, or alveolar edema. ACT 112: Negative or not required by law. Electronically signed by: Gui Coy M.D. 09/28/2023 7:20 PM Venous Doppler Study 09/28/23 20:13 ULTRASOUND LEFT LOWER EXTREMITY VENOUS CLINICAL HISTORY: Left leg pain. COMPARISON STUDY: Bilateral lower extremity venous ultrasound dated 11/01/2022 TECHNIQUE: Portable real-time, grayscale, and color Doppler sonography of the deep veins of the left lower extremity was performed from the inguinal crease to the calf. Compression and augmentation were utilized. FINDINGS: There is no sonographic evidence of deep venous thrombosis identified in the left lower extremity. The common femoral, superficial femoral, and popliteal veins are patent and normally compressible. The greater saphenous vein and the profunda femoris vein at the junction with the common femoral vein are clear. The visualized calf veins are patent. Soft tissue edema is present in the left leg. IMPRESSION: There is no sonographic evidence of deep venous thrombosis identified in the left lower extremity. ACT 112: Negative or not required by law. Electronically signed by: Ulises Yoo M.D. 09/28/2023 11:21 PM Code Status & VTE Plan Code Status DNR/DNI VTE Prophylaxis Plan VTE Prophylaxis will be ordered: Yes PG Care Time/CCT Total # of Minutes Spent Total Time Spent with Patient: Total time spent is greater than 50% in coordination of care (as documented) at patient's floor/unit and/or counseling patient: 45 minutes Coding Level of Care Code 49584 INT INP/OBS CARE 375MIN Diagnoses Sepsis due to pneumonia J18.9; A41.9 Acute hypotension I95.9 Acute respiratory failure with hypoxia J96.01 DVT (deep venous thrombosis) I82.409 Non-ST elevation DE (NSTEMI) I21.4 Aspiration pneumonia J69.0 Aspiration pneumonia type: due to vomit Laterality: left Lung location: unspecified part of lung (6) Aspiration pneumonia Aspiration pneumonia type: due to vomit Laterality: left Lung location: unspecified part of lung Qualified Code(s): J69.0 - Pneumonitis due to inhalation of food and vomit
[2023-09-28] MEDS: SODIUM CHLORIDE 0.9% 1,000 ML IV ONE (21:23)
--- OUTSIDE RECORDS SUMMARY | 2023-09-28 22:09 | External Medical Summary | Summary of Care ---
Author Name Unknown Organization [facility] Address [address] [place] [address] Phone [phone] Care Team Providers Care Latrine Cleaner Name Role Phone Lizette ARCEO MD, Girish Wright Primary Care Pr ovider Reason for Visit * Reason Onset Date Comments Advice 09/25/2023 Injection/ Labs Encounter Details Date Type Department Care Team (Late st Contact Info) Description 09/25/2023 Telephone Hematology/Oncology Treatment, [place] [address] [place] [address] Services, Scheduling [address] [place] [address] Advice (Injection/ Labs) Allergies Active Allergy Reactions Criticality Noted Date Comments Aspirin Anaphylaxis High 08/28/2023 Duloxetine High 11/18/2020 Other Reaction(s): Rash Lisinopril 06/21/2006 cough Nsaids 07/03/2023 Salicylates Swelling documented as of this encounter (statuses as of 09/25/2023) Medications Medication Sig Dispensed Refills Start Date End Date Status Brimonidine Tartrate-Timolol (COMBIGAN) 0.2-0.5 % ophthalmic solution Instill 1 Drop into both eyes 2 times a day. 5 mL 12/18/2017 Active Magnesium Oxide 500 MG CAPS Take 1 Cap by mouth at bedtime. 30 Cap 12/18/2017 Active Pennsaid 2 % External Solution (Diclofenac Sodium) Apply topically to affected area 2 times a day. Apply 40 mg topically to affected area 2 times a day as needed for Pain. 112 g 2 10/12/2020 Active Additional Information Patient taking differently:External BID (.AM/PM),Apply 40 mg topically to affected area 2 times a day as needed for Pain.left hip, Reported on 07/03/2023 Famotidine 10 MG Oral Tablet (Pepcid)Indications :Gastroesophageal reflux disease, unspecified whether esophagitis present Take 1 Tablet by mouth at bedtime. For heartburn 30 Tablet 5 03/20/2022 Active predniSONE 5 MG Oral Tablet (Deltasone) Take 1 tablet by mouth daily for RA 90 Tablet 3 05/02/2022 Active rOPINIRole HCl 2 MG Oral Tablet (Requip)Indications :Restless legs syndrome Take 1 Tablet by mouth at bedtime. With food. 90 Tablet 1 05/16/2022 Active hydrOXYzine HCl 25 MG Oral Tablet Take 1 Tablet by mouth in the morning and 1 Tablet at noon and 1 Tablet before bedtime. 06/26/2022 Active Levothyroxine Sodium 75 MCG Oral Tablet (Levoxyl) TAKE ONE TABLET BY MOUTH EVERY MORNING 90 Tablet 3 07/25/2022 Active Pantoprazole Sodium 40 MG Oral Tablet Delayed Release (Protonix) Take 1 Tablet by mouth in the morning. 90 Tablet 1 07/26/2022 Active Carvedilol 3.125 MG Oral Tablet (Coreg) Take 1 Tablet by mouth in the morning and 1 Tablet before bedtime. 180 Tablet 1 08/15/2022 Active Additional Information Patient taking differently: 12.5 mgOral BID (.AM/PM),Hold for HR <60 or SBP< 100, Reported on 07/03/2023 Escitalopram Oxalate 20 MG Oral Tablet (Lexapro)Indication s:Moderate episode of recurrent major depressive disorder (HCC) Take 1 Tablet by mouth in the morning. 90 Tablet 1 09/15/2022 Active HYDROcodone-Acetami nophen 5-325 MG Oral Tablet Take 1 Tablet by mouth every 8 hours as needed for Pain, Mild. 60 Tablet 09/29/2022 Active tiZANidine HCl 4 MG Oral Capsule Take 1 Capsule by mouth at bedtime. 90 Capsule 1 10/04/2022 Active Acetaminophen 325 MG Oral Capsule 650 mg. 02/27/2023 Active Bumetanide 2 MG Oral Tablet 04/09/2023 Active Calcium Carbonate 1250 (500 Ca) MG Oral Tablet Chewable 1 Tablet. 02/27/2023 Active Colestipol HCl 1 GM Oral Tablet (Colestid) 2 Tablets in the morning and 2 Tablets before bedtime. 02/27/2023 Active Loperamide HCl 2 MG Oral Tablet (Immodium (A-D)) 1 Tablet. 02/27/2023 Active Losartan Potassium 100 MG Oral Tablet (Cozaar) 1 Tablet. 02/27/2023 Active Meclizine HCl 12.5 MG Oral Tablet (Antivert) 1 Tablet. 02/27/2023 Active Moxifloxacin HCl 0.5 % Ophthalmic Solution (Vigamox) Instill 1 Drop into the left eye. Every 2 hours 06/04/2023 Active Nystop 664375 UNIT/GM External Powder 05/14/2023 Active Ondansetron HCl 4 MG Oral Tablet (Zofran) 03/14/2023 Active Polysaccharide Iron Complex 150 MG Oral Capsule (Nu-Iron 150) 150 mg. 02/27/2023 Active Klor-Con M10 10 MEQ Oral Tablet Extended Release 2 Tablets in the morning. 04/12/2023 Active prednisoLONE Acetate 1 % Ophthalmic Suspension (Pred Forte) Instill 1 Drop into the left eye. Every 2 hours 06/04/2023 Active Travoprost (NIMO Free) 0.004 % Ophthalmic Solution (Travatan Z) 05/24/2023 Active Gabapentin 100 MG Oral Capsule (Neurontin) Take 2 Capsules by mouth in the morning and 2 Capsules at noon and 2 Capsules before bedtime. Active Bisacodyl 10 MG Rectal Suppository (Dulcolax) Administer 1 Suppository into the rectum in the morning. Active hydrALAZINE HCl 50 MG Oral Tablet (Apresoline) 1 Tablet in the morning and 1 Tablet at noon and 1 Tablet in the evening and 1 Tablet before bedtime. Takes 1.5 tabs See BP parameters . 05/09/2023 Active Rivaroxaban 20 MG Oral Tablet (Xarelto) Take 1 Tablet by mouth every 30 hours. Active Promethazine HCl 25 MG/ML Injection Solution (Phenergan) Inject 25 mg into a large muscle every 6 hours as needed for Vomiting. IM Active Magnesium Hydroxide 400 MG/5ML Oral Suspension (Mom) Take 30 mL by mouth daily as needed for Constipation. Active oxyCODONE HCl 5 MG Oral Capsule (Oxy IR) Take 2 Capsules by mouth every 4 hours as needed. Active Polyethylene Glycol 3350 17 GM/SCOOP Oral Powder (MiraLax) Take 17 g by mouth in the morning. 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 01/30/2022 Benign hypertension with stage 3b chronic kidney disease 07/20/2020 Overview: Per CKD protocol Lumbar degenerative disc disease 12/16/2018 MEDICATION USE AGREEMENT 11/04/2018 S/P TKR (total knee replacement), left 9 S/P total knee replacement, right 12/12/2017 Anemia of chronic disease 12/12/2017 Primary open angle glaucoma (POAG) of both eyes, indeterminate stage 07/15/2017 Hereditary and idiopathic peripheral neuropathy 05/17/2017 Moderate episode of recurrent major depressive d isorder 04/02/2017 Restless legs syndrome 04/02/2017 Persistent insomnia 10/21/2015 [facility] without rheumatoid factor 09/08/2015 Encounter for long-term (current) use of medicat ions 07/09/2015 Primary osteoarthritis of both hands 07/09/2015 Ganglion cyst of wrist 06/21/2015 Raynaud's phenomenon 03/16/2015 Hypothyroidism 06/18/2009 Sensorineural hearing loss, bilateral 04/23/2009 HTN, goal below 150/90 01/15/2009 Overview: Modified per HTN Taxonomy. Allergic rhinitis 01/09/2006 ORAL ALLERGY SYNDROME 01/09/2006 Overview: Cantalope, honeydew Osteoarthrosis Vertigo Deviated nasal septum Temporomandibular joint disorders, unspecified documented as of this encounter (statuses as of 09/25/2023) Resolved Problems Problem Noted Date Diagnosed Date Resolved Date CKD (chronic kidney disease) stage 4, GFR 15-29 ml/min 03/20/2022 04/25/2022 Chronic kidney disease, stage 3b 08/24/2020 07/03/2023 Overview: Per CKD protocol Benign hypertension with CKD (chronic kidney disease) stage III 12/12/2017 07/22/2020 Overview: Per CKD protocol Neuropathic ulcer of right f oot, limited to breakdown of skin 07/27/2017 11/19/2017 Kidney disease, chronic, sta ge III (GFR 30-59 ml/min) 03/20/2016 07/24/2018 Overview: Per CKD protocol #1 White coat syndrome with gorge gnosis of hypertension 10/21/2015 06/20/2018 Rheumatoid arthritis of [facility] with negative rheumatoid factor 07/09/2015 09/08/2015 Arthritis, rheumatoid 10/10/20122015 Nausea in adult 01/02/2012 03/16/2015 Subjective tinnitus 04/23/2009 03/16/19 16 RECURRENT ACUTE SINUSITIS 10/01/2007 CHR ALLRG CONJUNCTIV NEC 01/09/200601/2016 HTN, goal below 140/90 01/15 Overview: Modified per HTN Taxonomy. Hypertrophy of nasal turbinates 06/21/2015 Deviated nasal septum 2007 Hypertrophy of nasal turbinates 04/02/2007 Headache 03/16/2015 Overview: ICD-10 update of inactive term Neuropathy 06/03/2021 documented as of this encounter (statuses as of 09/25/2023) Immunizations Name Administration Dates Next Due COVID-19 mRNA, LNP-s, No Pre serve, 2-Dose Series ([employer]) 12/21/2020,05/21/2020,04/30/2020 COVID-19, mRNA, LNR-S, Bival ent, PF, 10mcg/0.2 ml (Moderna) 6m to 5 years 10/11/2021 PPD 07/07/2015,06/29/2015 Pneumococcal Conjugate Vacc, 13 Valent (Prevnar) 09/10/2014 Pneumococcal Polysaccharide PPV23 (Pneumovax) 01/15/2008 Season Influenza, Quad, PF, Adjuvanted, 65+ Yrs, IM (FLUAD) 12/31/2019 Seasonal Influenza, PF, 6 M & above, IM , (FluLaval or Fluzone) 11/19/2017,01/05/2017 Seasonal Influenza, Quadriva lent Hd (Fluzone Hd) 12/19/2021,11/26/2020 Seasonal Influenza, Split, I IV3, With Preserve, Inj 12/24/2015,12/09/2014,12/08/2013,02/27,01/30/2011,12/03/2009,11/18/2008 ,01/15/2008,12/11/2006 Seasonal Influenza, Trivalen t, Adjuvanted, 65+ yrs 11/15/2018 TD - Tetanus/Diptheria (ADULT) 06/25/2007 TDAP (age 10 and older)(Boostrix) 12/30/2013 Zoster Vaccine Recombinant (Shingrix) 07/01/2020 ,04/15/2020 documented as of this encounter Social History Tobacco Use Types Packs/Day Years Used Date Smoking Tobacco: Never Smokeless Tobacco: Never Comments:no passive smoke in halation Alcohol Use Standard Drinks/Week Comments Not Currently 0 (1 standard drink = 0.6 oz pur e alcohol) 1-2 drinks/week PHQ-2 Answer Date Recorded PHQ Adult Total Score 0 05/16/2022 Sex and Gender Information Value Date Recorded Sex Assigned at Not on file Gender Identity Not on file Sexual Orientation Not on file Job Start Date Occupation Industry Not on file Not on file Not on file documented as of this encounter Miscellaneous Notes * Telephone Encounter - Fatuma Morillo OSA - 09/25/2023 9:48 AM EDT done * Telephone Encounter - Karolina Gutierrez RN - 09/25/2023 9:37 AM EDT Lab work is needed prior to injection. Called [facility] back and spoke to Geremias- this is patients 3rd injection, and 2nd issue with lab work the day prior. Asked if they would prefer we plan on drawing lab work here- he states that we canplan to do this. Scheduling: - please adjust future appts (including today) to have patient get labs "CBCd" 30 min prior to injection appt and give print out of new appts to patient/ caregiver when they come in - please remove "labs day prior" from injection appt note Thanks! * Telephone Encounter - Eve Bobo OSA - 09/25/2023 9:11 AM EDT [facility] was on the about patient Retacrit injection- stating with some mishaps they were unableto acquire the lab work yesterday. Will that interfere with the injection? What do you advise? documented in this encounter Plan of Treatment Upcoming Encounters Date Type Department Care Team (Late st Contact Info) Description 09/25/2023 10:15 AM EDT Immunization/Injecti on Hematology/Oncology Treatment, [address] [place] [address] Nurse, Med [address] [place] [address] 10/02/2023 10:50 AM EDT Laboratory Laboratory [facility] [place] [address] [place] [address] [facility] [address] [place], [place] [address] 10/02/2023 11:15 AM EDT Immunization/Injecti on Hematology/Oncology Treatment, [place] [address] [facility] [address] Nurse, Med [address] [place], [place] [address] 10/09/2023 9:30 AM EDT Laboratory Laboratory [facility] [place] [address] [place] [address] [facility] [place] [address] [place] [address] 10/09/2023 10:00 AM EDT Immunization/Injecti on Hematology/Oncology Treatment, [address], [place] [phone] Nurse, Med 4 [address] [facility] [place] [address] 10/10/2023 2:20 PM EDT Office Visit Nephrology, [facility] [address] [facility] [address] [place], [place] [address] Devaughn Ferrer MD [address] [facility] [place] [address] 12/03/2023 2:00 PM EDT Office Visit Hematology/Oncology [facility] [address] [facility] [place] [phone] Leisa Augustine CRNP [address] [facility] [place] [address] 12/13/2023 9:30 AM EDT Office Visit Rheumatology [facility] [address] [place] [address] Nadir Sawyer PA-C [address] [employer] [place], [place] [address] Health Maintenance Due Date Last Done Comments DXA Scan 09/03/2020 09/03/2013 COVID-19 Vaccine ( season) 2022 10/11/2021, 12/21/2020, 05/21/2020, Additional history exists Albumin/Creatinine Ratio 03/20/2023 03/20/2022 Depression Monitoring 05/17/2023 05/16/2022 Influenza Vaccine (FLU shot) (#1) 2023 12/19/2021, 11/26/2020, 12/31/2019, Additional history exists DTaP,Tdap,and Td Vaccines (2 - Td or Tdap) 12/31/2023 12/30/2013, 06/25/2007 GFR 02/27/2024 08/28/2023, 06/10, 03/19/2023, Additional history exists TSH 03/13/2024 03/13/2023, 08/10, 05/13/2021, Additional history exists Pneumococcal Vaccine: 65+ Years Completed 09/10/2014, 01/15/2008 Zoster Vaccines Completed 07/01/2020, 04/15/2020 FOBT ANNUALLY,AGES 18-90 Discontinued 023, 11/16/2022, 07/15/2008, Additional history exists HPV (Gardasil) Vaccine Aged Out No lo nger eligible based on patient's age to complete this topic Hepatitis B Vaccine Aged Out No longe r eligible based on patient's age to complete this topic MENINGOCOCCAL (MENACTRA/MENVEO) Aged Out No longer eligible based on patient's age to complete this topic documented as of this encounter Medical Devices Not on filedocumented as of this encounter Care Teams Latrine Cleaner Relationship Specialty Start Date End Date Girish Bauer III, MD [address] [place] [address] PCP - General Internal Medicine 01/12/23 documented as of this encounter
--- OUTSIDE RECORDS SUMMARY | 2023-09-28 22:09 | External Medical Summary | Summary of Care ---
Author Name Unknown Organization [facility] Address [address] [place] [address] Phone [phone] Care Team Providers Care Physical Optics Teacher Name Role Phone Lizette ARCEO MD, Girish Wright Primary Care Pr ovider Reason for Visit * Reason Comments Medication Administration Retacrit * Episode Based Medications (Routine) - Authorized Specialty Diagnoses / Procedures Referred By Contac t Referred To Contact Diagnoses Anemia due to stage 4 chronic kidney disease (HCC) Procedures CA INJ RETACRIT NON-ESRD USE Leisa Augustine CRNP [address] [place] [address] Anc Hem/Onc [address] [address] Referral ID Status Reason Start Date Expiration Date V isits Requested Visits Authorized [id number] Authorized 09/03/2023 03/11/[phone] Encounter Details Date Type Department Care Team (Late st Contact Info) Description 09/25/2023 10:15 AM EDT Immunization/I njection Hematology/Oncology Treatment, [address] [address] Nurse, Med [address] [place] [address] Anemia due to stage 4 chronic kidney disease (HCC)* Allergies Active Allergy Reactions Criticality Noted Date [...] eye. Every 2 hours 06/04/2023 Active Nystop 822817 UNIT/GM External Powder 05/14/2023 Active Ondansetron HCl [...] 04/02/2017 Persistent insomnia 10/21/2015 Rhe[address] [facility] without rheumatoid factor 09/08/2015 Encounter for [...] of hypertension 10/21/2015 06/20/2018 Rhe[address] [facility] with negative rheumatoid factor 07/09/2015 [...] mRNA, LNP-s, No Pre serve, 2-Dose Series ([employer]) 12/21/2020,05/21/2020,04/30/2020 COVID-19, mRNA, LNR-S, Bival ent, PF, [...] on file documented as of this encounter Last Filed Vital Signs Vital Sign Reading Time Taken Comments Blood Pressure 97/50 09/25/2023 10:28 AM EDT Pulse 63 09/25/2023 10:28 AM EDT Temperature 36.8 C (98.2 F) 09/25/2023 10:28 AM E DT Respiratory Rate 16 09/25/2023 10:28 AM EDT Oxygen Saturation 94% 09/25/2023 10:28 AM EDT Inhaled Oxygen Concentration - - Weight - - Height - - Body Mass Index - - documented in this encounter Nursing Notes * Guzman López RN - 09/25/2023 10:29 AM EDT Chair 7. Pt entered via wheelchair. She denies any issues with her injections. Denies dizziness or lightheadedness. Hgb 8.9, ok to proceed with Retacrit. Pt aware of lab results. Safety and Risk for Injury Patient will remain free from injury. Ensure appropriate safety devices are available. Provide and maintain safe environment. documented in this encounter Plan of Treatment Upcoming Encounters Date Type Department Care Team (Late st Contact Info) Description 10/02/2023 10:50 AM EDT Laboratory Laboratory [facility] [place] [address] [place] [phone] Eva Wang [place] [address] [address] [facility] [place] [address] 10/02/2023 11:15 AM EDT Immunization/Injecti on Hematology/Oncology Treatment, [place] [address] [place] [address] [address] Nurse, Med [address] [place] [address] [address] 10/09/2023 9:30 AM EDT Laboratory Laboratory [facility] [place] [address] [place] [address] [address] Eva Wang [facility] [address] [place] [address] 10/09/2023 10:00 AM EDT Immunization/Injecti on Hematology/Oncology Treatment, [place] [address] [place] [phone] Nurse, Med 4 [address] [place] [address] 10/10/2023 2:20 PM EDT Office Visit Nephrology, [facility] [address] [facility] [address] [place], [place] [address] Devaughn Ferrer MD [address] [place] [address] 12/03/2023 2:00 PM EDT Office Visit Hematology/Oncology [facility] [place] [address] [place] [phone] Leisa Augustine CRNP [address] [facility] [place] [address] 12/13/2023 9:30 AM EDT Office Visit Rheumatology [facility] [address] [place], [place] [address] Nadir Sawyer PA-C [email or web address] Health Maintenance Due Date Last Done Comments [...] Not on filedocumented as of this encounter Visit Diagnoses Diagnosis Anemia due to stage 4 chronic kidney disease (HCC)- Primary documented in this encounter Administered Medications Inactive Administered Medications - up to 3 most recent administrations Medication Order MAR Action Action Date Dose Rate Site Epoetin Julio-epbx (Retacrit) 55718 UNIT/ML inj 10,000 Units 10,000 Units, Subcutaneous, ONCE, On Sun09/25/23 at 1130, For 1 dose Given 09/25/2023 10:40 AM EDT 10,000 Units Arm Right Upper documented in this encounter Care Teams Physical Optics Teacher Relationship Specialty Start Date End Date Girish Bauer III, MD [address] [place] [address] [address] PCP - General Internal Medicine 01/12/23 documented as of this encounter
--- OUTSIDE RECORDS SUMMARY | 2023-09-28 22:09 | External Medical Summary | Summary of Care ---
Author Name Unknown Organization [facility] Address [address] [facility] [address] Phone [phone] Care Team Providers Care Educational Advisor Name Role Phone Lizette ARCEO MD, Girish Wright Primary Care Pr ovider Reason for Visit * Reason Comments Outpatient Testing Encounter Details Date Type Department Care Team (Late st Contact Info) Description 09/25/2023 9:50 AM EDT Laboratory Laboratory [facility] [place] [address] [place] [phone] [place], [address] [place] [address] Arrived Allergies Active Allergy Reactions Criticality Noted Date [...] eye. Every 2 hours 06/04/2023 Active Nystop 421892 UNIT/GM External Powder 05/14/2023 Active Ondansetron HCl [...] 04/02/2017 Persistent insomnia 10/21/2015 [facility] without rheumatoid factor 09/08/2015 Encounter for [...] of hypertension 10/21/2015 06/20/2018 [facility] with negative rheumatoid factor 07/09/2015 09/08/2015 [...] mRNA, LNP-s, No Pre serve, 2-Dose Series ([employer]) 12/21/2020,05/21/2020,04/30/2020 COVID-19, mRNA, LNR-S, Bival ent, PF, [...] on file documented as of this encounter Plan of Treatment Upcoming Encounters Date Type Department Care Team (Late st Contact Info) Description 10/02/2023 10:50 AM EDT Laboratory Laboratory [facility] [address] [place] [address] [phone] Eva Wang [address] [place] [address] 10/02/2023 11:15 AM EDT Immunization/Injecti on Hematology/Oncology Treatment, [place] [address] [place] [address] [phone] Nurse, Med [address] [place] [address] [address] 10/09/2023 9:30 AM EDT Laboratory Laboratory [facility] Wang [place] [address] [place] [address] [phone] Eva Wang [facility] [address] [facility] [place], [place] [address] 10/09/2023 10:00 AM EDT Immunization/Injecti on Hematology/Oncology Treatment, [place] [address] [place], [place] [phone] Nurse, Med 4 [address] [facility] [place] [address] 10/10/2023 2:20 PM EDT Office Visit Nephrology, [facility] [address] [facility] [place], [place] [address] Devaughn Ferrer MD [address] [facility] [place] [address] 12/03/2023 2:00 PM EDT Office Visit Hematology/Oncology [facility] [place] [address] [facility] [place], [place] [address] Leisa Augustine CRNP [address] [place] [address] 12/13/2023 9:30 AM EDT Office Visit Rheumatology [facility] [address] [place], [place] [address] Nadir Sawyer PA-C [address] [place], [place] [address] Health Maintenance Due Date Last Done Comments [...] filedocumented as of this encounter Care Teams Educational Advisor Relationship Specialty Start Date End Date Girish Bauer III, MD [address] [place] [address] [address] PCP - General Internal Medicine 01/12/23 documented as of this encounter
--- OUTSIDE RECORDS SUMMARY | 2023-09-28 22:09 | External Medical Summary ---
Author Name Unknown Address Unknown Organization [id number] [place] [address] Laboratory Report Ordering Provider Test Date Status JUAN MIGUEL TORO 09/25/2023 10:08:38 Final Observation Date Value Abnormality Reference (Units ) Status SYNC LEUKOCYTES IN BLOOD BY AUTOMATED COUNT 09/25/2023 10:08:38 10.16 4.00-10.80 (K/uL) Final Segs 09/25/2023 10:08:38 78.5 Above high normal 40.0-75.0 (%) Final Lymphs % 09/25/2023 10:08:38 10.7 Below low normal 18.0-42.0 (%) Final Monos 09/25/2023 10:08:38 8.4 1.0-11.0 (%) Final Eosinophils 09/25/2023 10:08:38 2.2 0.0-6.0 (%) Final Basos 09/25/2023 10:08:38 0.2 0.0-2.0 (%) Final Absolute Segs 09/25/2023 10:08:38 7.98 Above high normal 1.80-7.70 (K/uL) Final Lymphs, absolute 09/25/2023 10:08:38 1.09 1.00-4.80 (K/ul) Final Monos, Abs 09/25/2023 10:08:38 0.85 0.00-1.10 (K/uL) Final Eos, Abs 09/25/2023 10:08:38 0.22 0.00-0.70 (K/uL) Final Basos, Abs 09/25/2023 10:08:38 0.02 0.00-0.20 (K/uL) Final Performing Location [facility] [place] [address]
--- OUTSIDE RECORDS SUMMARY | 2023-09-28 22:09 | External Medical Summary ---
Author Name Unknown Address Unknown Organization [id number] [address] Laboratory Report Ordering Provider Test Date Status JUAN MIGUEL TORO 09/25/2023 10:08:38 Final Observation Date Value Abnormality Reference (Units ) Status WBC, Total 09/25/2023 10:08:38 10.16 4.00-10.8 0 (K/uL) Final RBC 09/25/2023 10:08:38 2.86 3.85-5.15 (M/uL) Final Hemoglobin 09/25/2023 10:08:38 8.9 Below low normal 12 .0-15.3 (g/dL) Final HCT 09/25/2023 10:08:38 29.2 Below low normal 36. 0-45.2 (%) Final MCV 09/25/2023 10:08:38 102.1 81.5-97.5 (fL) Final MCH 09/25/2023 10:08:38 31.1 27.0-34.0 (pg) Final MCHC 09/25/2023 10:08:38 30.5 32.0-36.0 (g/dL) Final RDW 09/25/2023 10:08:38 17.8 11.5-15.5 (%) Final Platelets 09/25/2023 10:08:38 310 140-400 (K /uL) Final MPV 09/25/2023 10:08:38 8.3 6.6-11.1 ( fL) Final Performing Location [facility] [place] [address]
--- NOTE | 2023-09-28 23:22 | Ultrasound Report ---
ULTRASOUND LEFT LOWER EXTREMITY VENOUS CLINICAL HISTORY: Left leg pain. COMPARISON STUDY: Bilateral lower extremity venous ultrasound dated 11/01/2022 TECHNIQUE: Portable real-time, grayscale, and color Doppler sonography of the deep veins of the left lower extremity was performed from the inguinal crease to the calf. Compression and augmentation were utilized. FINDINGS: There is no sonographic evidence of deep venous thrombosis identified in the left lower ext remity. The common femoral, superficial femoral, and popliteal veins are patent and normally compress ible. The greater saphenous vein and the profunda femoris vein at the junction with the common femora l vein are clear. The visualized calf veins are patent. Soft tissue edema is present in the left leg. IMPRESSION: There is no sonographic evidence of deep venous thrombosis identified in the left lower e xtremity. ACT 112: Negative or not required by law. Electronically signed by: Ulises Yoo M.D. 09/28/2023 11:21 PM
[2023-09-29] MEDS: ACETAMINOPHEN 1,000 MG/100 ML VIAL IV PRN (03:43)
--- NOTE | 2023-09-29 04:15 | Billing Data ---
Date of Service September 29, 2023 Coding Level of Care Code 52458 CRITICAL CARE M
[2023-09-29 04:42] LABS: Hematocrit (blood only) 28.5 % (37.0-47.0); Hemoglobin 8.9 g/dl (12.0-16.0); Mean Corpuscular Hemoglobin 30.8 pg (25.0-34.0); Mean Corpuscular Hgb Conc 31.2 g/dL (32.0-36.0); Mean Corpuscular Volume 98.6 fL (80.0-100.0); Mean Platelet Volume 8.2 fL (9.4-12.4); Platelet Count 236 K/uL (130-400); RDW Coefficient of Variation 16.7 % (11.5-14.5); RDW Standard Deviation 60.7 fL (36.4-46.3); Red Blood Count 2.89 M/uL (4.20-5.40); White Blood Count 15.64 K/ul (4.8-10.8)
[2023-09-29] MEDS: PIPERACILLIN/TAZOBACTAM 4.5 GM in DEXTROSE 5% MINI-B 100 ML IV SCH (04:42)
[2023-09-29 05:00] LABS: Basophils # (auto) 0.04 K/uL (0.00-0.20); Basophils % (auto) 0.3 %; Eosinophils # (auto) 0.01 K/uL (0.00-0.50); Eosinophils % (auto) 0.1 %; Immature Granulocytes # (auto) 0.14 K/uL (0.01-0.20); Immature Granulocytes % (auto) 0.9 %; Lymphocytes # (auto) 0.37 K/uL (1.20-3.40); Lymphocytes % (auto) 2.4 %; Monocytes # (auto) 0.27 K/uL (0.11-0.59); Monocytes % (auto) 1.7 %; Neutrophils # (auto) 14.81 K/uL (1.40-6.50); Neutrophils % (auto) 94.6 %; Toxic Granulation 1+
[2023-09-29 05:02] LABS: Albumin Globulin Ratio 1.4 (0.9-2); BUN Creatinine Ratio 23.5 (10-20); Creatinine Clr Calc Pharmacy 18.2 ml/min; Est GFR (African American) 21.6 ml/min; Est GFR (Non-African American) 18.6 ml/min; Globulin 2.2 gm/dl (2.5-4.0); Magnesium 2.4 mg/dl (1.7-2.4); Potassium 4.6 mmol/L (3.5-5.1); Total Protein 5.2 gm/dl (6.0-8.3)
[2023-09-29 05:07] LABS: Troponin I High Sensitivity 246.3 pg/ml (0-14)
[2023-09-29] MEDS: ALBUT/IPRATROP 3MG/0.5MG NEB 3 ML VIAL NEB SCH (07:09)
[2023-09-29] MEDS: LINEZOLID 600 MG/300 ML BAG IV SCH (07:36)
--- NOTE | 2023-09-29 08:50 | Hospitalist Progress Note ---
Date of Service September 29, 2023 Assessment & Plan (1) Sepsis due to pneumonia: Plan: Sepsis due to aspiration pneumonia/acute respiratory failure with hypoxia/acute hypotension- ICU due to need for Levophed for pressure support. Initial antibiotics in the ED were vancomycin IV and Zosyn IV, with vancomycin IV discontinued due to renal dysfunction Maintenance antibiotics are Zyvox 6 mg IV every 12 hours and Zosyn 4.5 g IV every 8 hours Chronic prednisone use 5 mg daily Placed on low-dose Solu-Medrol 20 mg IV daily, for partial stress dosing and possible beneficial pulmonary fact (2) Elevated troponin: Plan: Elevated troponin/hypertension-felt to be demand ischemia, nstemi ruled out Antihypertensives on hold due to low blood pressure associated with sepsis Initial troponin 43.2 -[id number] (3) Lower extremity ulceration: Plan: present on admission Left lower extremity cellulitis/left heel ulcer- IV antibiotic (4) DVT (deep venous thrombosis): Plan: 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, previously diagnosed 11/01 Hold Xarelto after having received her last dose for evening of 09/27 trial of po intake, likely to resume xarelto (5) CKD (chronic kidney disease), stage III: Plan: Acute kidney injury superimposed on CKD- Creatinine elevated over baseline IV fluids Hold nephrotoxic agents Admission and Anticipated Discharge Date Admission Date: September 28, 2023 Subjective pt was awake and conversant cannot recall events of day prior progressive care manager at bedside, updated still some shortness of breath po intake trial today Physical Exam Physical Exam: awake some respiratory distress lungs coarse and diminished at the bases trace peripheral edema Results & Data Results & Data Vital Signs (Past 12 Hours) Vital Signs Temp Pulse Pulse Resp BP BP Pulse Ox 09/29/23 07:12 70 16 96 09/29/23 06:04 92/48 L 09/29/23 02:40 99.3 F 81 24 103/50 L 100 09/29/23 01:37 99/46 L 09/29/23 00:24 92/44 L 09/29/23 00:18 82 09/29/23 00:06 80/44 L 83/38 L 09/28/23 23:32 86/47 L 09/28/23 22:45 77/41 L 88/41 L 09/28/23 22:14 09/28/23 22:07 09/28/23 22:07 98.2 F 88 20 105/61 95 09/28/23 21:30 95 H 22 97/48 L 100 09/28/23 21:15 93 H 20 111/59 L 100 09/28/23 21:00 98 H 20 116/61 98 09/28/23 20:45 95 H 20 110/61 97 O2 Del Method O2 Del Method O2 Flow Rate O2 Flow Rate 09/29/23 07:12 Oxymask 4 09/29/23 06:04 09/29/23 02:40 Oxymask 6 09/29/23 01:37 09/29/23 00:24 09/29/23 00:18 09/29/23 00:06 09/28/23 23:32 09/28/23 22:45 09/28/23 22:14 Non-rebreather 10 09/28/23 22:07 Oxymask 10 09/28/23 22:07 Non-rebreather 10 09/28/23 21:30 Non-rebreather 10 09/28/23 21:15 Non-rebreather 10 09/28/23 21:00 Non-rebreather 15 09/28/23 20:45 Non-rebreather 10 Laboratory Results reviewed cbc reviewed chemistry PG Care Time/CCT Total # of Minutes Spent Total Time Spent with Patient: Total time spent is greater than 50% in coordination of care (as documented) at patient's floor/unit and/or counseling patient: Coding Level of Care Code 07164 SUB INP/OBS CARE 3/50MIN Diagnoses Sepsis due to pneumonia J18.9; A41.9 Elevated troponin R77.8 Lower extremity ulceration L97.909 DVT (deep venous thrombosis) I82.409 CKD (chronic kidney disease), stage III N18.31 Chronic kidney disease stage 3 subtype: stage 3a (GFR 45-59) (5) CKD (chronic kidney disease), stage III Chronic kidney disease stage 3 subtype: stage 3a (GFR 45-59) Qualified Code(s): N18.31 - Chronic kidney disease, stage 3a
[2023-09-29] MEDS ORDERED: methylPREDNISolone 1000 MG/16 ML IV SCH (09:00)
[2023-09-29] MEDS: methylPREDNISolone 20 MG in SYRINGE 0 ML IV SCH (09:13)
[2023-09-29] MEDS: PANTOprazole 40 MG in SYRINGE 0 ML IV SCH (11:24)
[2023-09-29] MEDS: ACETAMINOPHEN 500 MG TAB PO PRN (17:39)
[2023-09-29] MEDS: NOREPINEPHRINE/D5W 4 MG/250 ML PLCT IV SCH (17:53)
[2023-09-29] MEDS: STAT IV Infusion **Titration per Protocol STA (17:53)
[2023-09-30 07:04] LABS: Basophils # (auto) 0.03 K/uL (0.00-0.20); Basophils % (auto) 0.2 %; Hematocrit (blood only) 25.2 % (37.0-47.0); Hemoglobin 7.9 g/dl (12.0-16.0); Immature Granulocytes % (auto) 2.5 %; Lymphocytes # (auto) 0.54 K/uL (1.20-3.40); Lymphocytes % (auto) 3.4 %; Mean Corpuscular Hemoglobin 30.5 pg (25.0-34.0); Mean Corpuscular Hgb Conc 31.3 g/dL (32.0-36.0); Mean Corpuscular Volume 97.3 fL (80.0-100.0); Mean Platelet Volume 8.9 fL (9.4-12.4); Monocytes # (auto) 0.63 K/uL (0.11-0.59); Monocytes % (auto) 3.9 %; Platelet Count 236 K/uL (130-400); RDW Coefficient of Variation 16.3 % (11.5-14.5); RDW Standard Deviation 58.3 fL (36.4-46.3); Red Blood Count 2.59 M/uL (4.20-5.40)
[2023-09-30 07:05] LABS: Albumin Globulin Ratio 1.2 (0.9-2); Albumin Level 2.9 gm/dl (3.4-5.0); BUN Creatinine Ratio 28.4 (10-20); Calcium 8.6 mg/dl (8.6-10.3); Creatinine Clr Calc Pharmacy 20.3 ml/min; Est GFR (African American) 25.4 ml/min; Est GFR (Non-African American) 21.9 ml/min; Globulin 2.5 gm/dl (2.5-4.0); Magnesium 2.7 mg/dl (1.7-2.4); Potassium 4.1 mmol/L (3.5-5.1); Total Protein 5.4 gm/dl (6.0-8.3)
[2023-09-30 07:44] LABS: Dohle Bodies 1+; Polychromasia 1+
[2023-09-30 14:23] LABS: A calco-baum cmplx NotReported Not Detected (NotDetected); Bact fragilis Not Reported Not Detected (NotDetected); Blood Culture Id Panel See PCR Comment (NotDetected); C auris Not Reported Not Detected (NotDetected); Calbicans Not Reported Not Detected (NotDetected); Candida glabrata Not Reported Not Detected (NotDetected); Candida krusei Not Reported Not Detected (NotDetected); Cneoformans/gatti Not Reported Not Detected (NotDetected); Cparapsilosis Not Reported Not Detected (NotDetected); E cloacae compx Not Reported Not Detected (NotDetected); Efaecalis Not Reported Not Detected (NotDetected); Efaecium Not Reported Not Detected (NotDetected); Enterobacterales Not Reported Not Detected (NotDetected); Escherichia coli Not Reported Not Detected (NotDetected); H influenzae Not Reported Not Detected (NotDetected); K aerogenes Not Reported Not Detected (NotDetected); Koxytoca Not Reported Not Detected (NotDetected); Kpneumoniae grp Not Reported Not Detected (NotDetected); Lmonocyt Not Reported Not Detected (NotDetected); N meningitidis Not Reported Not Detected (NotDetected); P aeruginosa Not Reported Not Detected (NotDetected); Proteus spp Not Reported Not Detected (NotDetected); Salmonella spp Not Reported Not Detected (NotDetected); Staph lugdunensis Not Reported Not Detected (NotDetected); Staph spp. Not Reported Not Detected (NotDetected); Staphaureus Not Reported Not Detected (NotDetected); Staphepi Not Reported Not Detected (NotDetected); Stenmaltophilia Not Reported Not Detected (NotDetected); Strep agal(GrpB) Not Reported Not Detected (NotDetected); Strep pneum Not Reported Not Detected (NotDetected); Strep pyog (GrpA) Not Reported Not Detected (NotDetected); Strep spp Not Reported DETECTED (NotDetected)
[2023-09-30 14:28] LABS: Streptococcus spp DETECTED (NotDetected)
--- NOTE | 2023-09-30 15:10 | Hospitalist Progress Note ---
Date of Service September 30, 2023 Assessment & Plan (1) Sepsis due to pneumonia: Plan: Sepsis due to aspiration pneumonia/acute respiratory failure with hypoxia/acute hypotension- pt no longer needing pressors Initial antibiotics in the ED were vancomycin IV and Zosyn IV, with vancomycin IV discontinued due to renal dysfunction Maintenance antibiotics are Zyvox 6 mg IV every 12 hours and Zosyn 4.5 g IV every 8 hours will downgrade to just linezolid until sensitivities are returned repeat blood cultures 09/30, Echo pending, crp in the am Chronic prednisone use 5 mg daily did have stress dose with methylprednisone, and conversion back to prednisone 09/30 at 10 mg (2) Elevated troponin: Plan: Elevated troponin/hypertension-felt to be demand ischemia, nstemi ruled out Antihypertensives on hold due to low blood pressure associated with sepsis Initial troponin 43.2 -[id number] (3) Lower extremity ulceration: Plan: present on admission Left lower extremity cellulitis/left heel ulcer- IV antibiotics (4) DVT (deep venous thrombosis): Plan: 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, previously diagnosed 11/01 Hold Xarelto after having received her last dose for evening of 09/27 trial of po intake, likely to resume xarelto (5) CKD (chronic kidney disease), stage III: Plan: Acute kidney injury superimposed on CKD-danis is improving Creatinine elevated over baseline IV fluids Hold nephrotoxic agents Plan Pt is typically non ambulatory, and plans to return to snf will need iv access if 4 weeks or less consider us guided iv did not place ID consult yet Admission and Anticipated Discharge Date Admission Date: September 28, 2023 Subjective pt was awake and conversant, informed of strep bacteremia. informed of possibility of needing outpt antibiotics does reside at [facility] cannot recall events of day prior housekeeper caregiver at bedside, updated still some shortness of breath, bedside speech eval was reassuring Physical Exam 2 Physical Exam: cardiac exam is regular with PEDRO rusb lungs are rhonchi at bases b/l abd is soft and nt neuro is awake and alert oriented x3 Results & Data Results & Data Vital Signs (Past 12 Hours) Vital Signs Temp Pulse Pulse Resp BP BP Pulse Ox 09/30/23 15:03 86 09/30/23 11:07 98.1 F 75 18 174/80 H 94 09/30/23 10:38 88 16 100 09/30/23 10:05 73 142/80 H 09/30/23 08:00 09/30/23 07:34 97.9 F 81 18 159/81 H 97 09/30/23 07:21 78 09/30/23 07:12 79 18 98 O2 Del Method O2 Flow Rate 09/30/23 15:03 09/30/23 11:07 Nasal Cannula 2 09/30/23 10:38 Nasal Cannula 2 09/30/23 10:05 09/30/23 08:00 Nasal Cannula 2 09/30/23 07:34 Nasal Cannula 2 09/30/23 07:21 09/30/23 07:12 Nasal Cannula 2 Laboratory Results review cbc review chemistry reviewed blood cultures showing strep PG Care Time/CCT Total # of Minutes Spent Total Time Spent with Patient: Total time spent is greater than 50% in coordination of care (as documented) at patient's floor/unit and/or counseling patient: Coding Level of Care Code 38381 SUB INP/OBS CARE 3/50MIN Diagnoses Sepsis due to pneumonia J18.9; A41.9 Elevated troponin R77.8 Lower extremity ulceration L97.909 DVT (deep venous thrombosis) I82.409 CKD (chronic kidney disease), stage III N18.31 Chronic kidney disease stage 3 subtype: stage 3a (GFR 45-59) (5) CKD (chronic kidney disease), stage III Chronic kidney disease stage 3 subtype: stage 3a (GFR 45-59) Qualified Code(s): N18.31 - Chronic kidney disease, stage 3a
--- NOTE | 2023-09-30 20:48 | XCELERA ---
[id number] \\[id number]
[2023-09-30] MEDS: carvediloL 12.5 MG TAB PO SCH (21:18)
[2023-09-30] MEDS: hydrALAZINE TAB 50 MG TAB PO SCH (21:18)
[2023-09-30] MEDS: MELATONIN 3 MG TAB PO PRN (21:19)
[2023-10-01 07:44] LABS: Basophils # (auto) 0.04 K/uL (0.00-0.20); Basophils % (auto) 0.2 %; Hematocrit (blood only) 26.9 % (37.0-47.0); Hemoglobin 8.5 g/dl (12.0-16.0); Immature Granulocytes % (auto) 1.2 %; Lymphocytes # (auto) 0.82 K/uL (1.20-3.40); Lymphocytes % (auto) 5.1 %; Mean Corpuscular Hemoglobin 30.5 pg (25.0-34.0); Mean Corpuscular Hgb Conc 31.6 g/dL (32.0-36.0); Mean Corpuscular Volume 96.4 fL (80.0-100.0); Mean Platelet Volume 8.7 fL (9.4-12.4); Monocytes # (auto) 0.84 K/uL (0.11-0.59); Monocytes % (auto) 5.2 %; Neutrophils # (auto) 14.13 K/uL (1.40-6.50); Neutrophils % (auto) 88.3 %; Platelet Count 243 K/uL (130-400); RDW Coefficient of Variation 15.6 % (11.5-14.5); Red Blood Count 2.79 M/uL (4.20-5.40); White Blood Count 16.03 K/ul (4.8-10.8)
[2023-10-01] MEDS: LOSARTAN POTASSIUM 50 MG TAB PO SCH (07:50)
[2023-10-01] MEDS: predniSONE 10 MG TABLET PO SCH (07:51)
[2023-10-01 07:58] LABS: Albumin Globulin Ratio 1.1 (0.9-2); Albumin Level 3.2 gm/dl (3.4-5.0); BUN Creatinine Ratio 26.5 (10-20); C Reactive Protein 20.24 mg/dl (0-0.5); Calcium 8.9 mg/dl (8.6-10.3); Creatinine Clr Calc Pharmacy 22.7 ml/min; Est GFR (African American) 28.5 ml/min; Est GFR (Non-African American) 24.6 ml/min; Globulin 2.8 gm/dl (2.5-4.0); Magnesium 2.6 mg/dl (1.7-2.4)
[2023-10-01] MEDS ORDERED: hydrALAZINE HCL 20 MG/ML VIAL IV PRN (08:15)
[2023-10-01] MEDS: RIVAROXABAN 20 MG TAB PO SCH (09:59)
[2023-10-01] MEDS: PANTOprazole 40 MG TAB PO SCH (09:59)
[2023-10-01] MEDS: LEVOTHYROXINE SODIUM 75 MCG TABLET PO SCH (09:59)
--- NOTE | 2023-10-01 11:02 | Electrocardiogram Report ---
Test Reason : Blood Pressure : / mmHG Vent. Rate : 109 BPM Atrial Rate : 109 BPM P-R Int : 126 ms QRS Dur : 094 ms QT Int : 314 ms P-R-T Axes : 025 007 076 degrees QTc Int : 422 ms Sinus tachycardia Minimal voltage criteria for LVH, may be normal variant ( [place] product ) Septal infarct , age undetermined Abnormal ECG When compared with ECG of 31-OCT-2022 21:09, Septal infarct is now Present T wave amplitude has increased in Lateral leads Confirmed by Dave Lema ([id number]) on 10/01/2023 11:02:27 AM Referred By: [facility] Confirmed By:Dave Lema
[2023-10-01] MEDS: BUMETANIDE 1 MG TAB PO SCH (11:18)
--- NOTE | 2023-10-01 11:59 | Electrocardiogram Report ---
Test Reason : Blood Pressure : / mmHG Vent. Rate : 074 BPM Atrial Rate : 074 BPM P-R Int : 140 ms QRS Dur : 078 ms QT Int : 450 ms P-R-T Axes : 046 017 055 degrees QTc Int : 499 ms Normal sinus rhythm Low voltage QRS Septal infarct (cited on or before 28-SEP-2023) Abnormal ECG When compared with ECG of 28-SEP-2023 19:04, (unconfirmed) QT has lengthened Confirmed by Dave Lema ([id number]) on 10/01/2023 11:59:03 AM Referred By: [facility] Confirmed By:Dave Lema
--- NOTE | 2023-10-01 12:06 | XRay Report ---
XR chest 1V portable CLINICAL HISTORY: Edema. COMPARISON STUDY: Chest radiograph September 28, 2023. 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 Cardiomegal y is again noted. Mediastinal contours are stable. There is no pneumothorax. Small bilateral pleural effusions are present. Interstitial and alveolar edema persists although has improved since prior exa m. IMPRESSION: 1. Persistent but improved interstitial and alveolar pulmonary edema. 2. Small bilateral pleural effusions. ACT 112: Negative or not required by law. Electronically signed by: Shivam Ward M.D. 10/01/2023 12:05 PM
--- NOTE | 2023-10-01 15:32 | Infectious Disease Consult ---
Date of Consultation October 01, 2023 Assessment & Plan (1) Streptococcal bacteremia: (2) Lower extremity ulceration: (3) Acute respiratory failure with hypoxia: Plan This is an 82-year-old female with a past medical history of CKD, RA on steroids, neuropathy, respiratory failure, right lower extremity DVT, restless leg syndrome, who presents from her correction for increasing hypoxia. Patient is awake and alert but does not remember what brought her to the hospital. She states that at her SNF she was told her blood pressure was low. She began to feel unwell, weak and cold and does not remember what happened from that point to when she presented to the ED. In the ambulance she was hypoxic to the 70s and required 15 L nonrebreather. She vomited en route to the hospital. She endorses chronic bilateral lower extremity pain/neuropathy. She has a left heel ulcer for approximately 1 month. She denies any pain at the site but sensation at her bilateral feet are diminished. She denies cough, rash, headaches, change in vision, dental pain, abdominal pain, change in urination, change in bowel habits. She has bilateral total knee replacements. She has increased pain in the left knee. She denies any recent falls. In the ED she is febrile with a T38.4, heart rate 110, respiratory rate 37, blood pressure 156/80, O2 sats 94% on 15 L nonrebreather. She was subsequently hypotensive and responded to IVF. Labs: WBC 19.6, H/H11.1/35.6, BUN 59, creatinine 2.41, lactate 2.6, BNP 454, troponin 163.5, CRP 20.24, respiratory viral panel negative. Chest x-ray showed multifocal airspace opacity which may represent pneumonia, aspiration or alveolar edema. Repeat chest x-ray showed persistent but improved interstitial and alveolar pulmonary edema and small bilateral pleural effusion. She received a dose of vancomycin and Zosyn. She is now on Linezolid. Blood cultures grew group G Streptococcus in 4 out of 4 bottles. Echocardiogram with no clear evidence of vegetations or valvular pathology. There is severe pulmonary hypertension infectious disease consulted for GPC bacteremia. On my initial exam she is off supplemental 02 and feels well. She complains of mild left knee pain and chronic heel wound. Microbiology Blood cultures 09/27/ bottles group G beta strep Blood cultures 09/30 pending Antibiotics Zosyn 09/27 Vancomycin 09/27 Linezolid 09/28ongoing Group G Streptococcus bacteremia may be secondary to chronic left heel ulcer with cellulitis. Other possibilities include ? pneumonia and r/o Left prosthetic joint infection ( both less likel. She presents with increasing shortness of breath and has multifocal airspace opacities which may represent pneumonia, aspiration, or alveolar edema..TTE with no clear evidence of vegetations or valvular pathology. There is severe pulmonary hypertension .On exam she has a left heel chronic ulcer. There is surrounding periwound erythema w/serosanguineous drainage. She has bilateral TKA Left knee with tenderness to palpation. Se complains of chronic BL LE pain L>R. She has fair dentition. #Group G Streptococcus bacteremia # Left heel ulcer with cellulitis # Sepsis #Leukocytosis #Acute hypoxic respiratory failure #DENNIS on CKD #Bilateral TKA Recommendations: Discontinued linezolid Started ceftriaxone 2 g IV daily Check left knee x-ray Follow-up repeat blood cultures 09/30 Thank you for this consult. ID will continue to follow Mariely Moscoso MD, MPH Infectious Disease [facility] Call [phone] with questions. Consultation Information Consultation was provided via telemedicine using two-way real-time interactive telecommunication between the patient and the telemedicine provider. For the duration of the visit, the provider was performing the assessment from a different facility than the patient. This includesuse of bluetooth stethoscope forauscultationperformed by the telepresenter that the telemedicine provider can hear if described in the physical exam. Pump Installer contact information: Please call [facility] . (Phone Number For Physician Use Only) After establishing a telemedicine visit, patient was: Patient was verified with two unique identifiers Time Spent with Patient: Initial => 75 min History of Present Illness Reason for Consultation: GPC bacteremia Requesting Physician: Chidi Bernal MD Attending Physician: Chidi Bernal MD History of Present Illness This is an 82-year-old female with a past medical history of CKD, RA on steroids , neuropathy, respiratory failure, right lower extremity DVT, restless leg syndrome, who presents from her correction for increasing hypoxia. Patient is awake and alert but does not remember what brought her to the hospital. She states that at her SNF she was told her blood pressure was low. She began to feel unwell, weak and cold and does not remember what happened from that point to when she presented to the ED. In the ambulance she was hypoxic to the 70s and required 15 L nonrebreather. She vomited en route to the hospital. She endorses chronic bilateral lower extremity pain/neuropathy. She has a left heel ulcer for approximately 1 month. She denies any pain at the site but sensation at her bilateral feet are diminished. She denies cough, rash, headaches, change in vision, dental pain, abdominal pain, change in urination, change in bowel habits. She has bilateral total knee replacements. She has increased pain in the left knee. She denies any recent falls. In the ED she is febrile with a T38.4, heart rate 110, respiratory rate 37, blood pressure 156/80, O2 sats 94% on 15 L nonrebreather. She was subsequently hypotensive and responded to IVF. Labs: WBC 19.6, H/H11.1/35.6, BUN 59, creatinine 2.41, lactate 2.6, BNP 454, troponin 163.5, CRP 20.24, respiratory viral panel negative. Chest x-ray showed multifocal airspace opacity which may represent pneumonia, aspiration or alveolar edema. Repeat chest x-ray showed persistent but improved interstitial and alveolar pulmonary edema and small bilateral pleural effusion. She received a dose of vancomycin and Zosyn. She is now on Linezolid. Blood cultures grew group G Streptococcus in 4 out of 4 bottles. Echocardiogram with no clear evidence of vegetations or valvular pathology. There is severe pulmonary hypertension infectious disease consulted for GPC bacteremia. On my initial exam she is off supplemental 02 and feels well. She complains of mild left knee pain and chronic heel wound. Allergies Allergy/AdvReac Type Severity Reaction Status Date / Time aspirin Allergy Severe ANAPHYLAXIS Verified 09/28/23 21:12 duloxetine [From Cymbalta] Allergy Intermediate Rash Verified 09/28/23 21:12 NSAIDS (Non-Steroidal Allergy Unknown Verified 09/28/23 21:12 Anti-Inflamma lisinopril AdvReac Intermediate Cough Verified 09/28/23 21:12 Home Medications Medication Instructions Recorded Confirmed Type acetaminophen 325 mg tablet 650 mg PO Q6 PRN Fever Or Pain 09/28/23 09/28/23 History (Tylenol) brimonidine 0.2 %-timolol 0.5 % 1 drp OPB BID 09/28/23 09/28/23 History eye drops bumetanide 2 mg tablet 2 mg PO QAM 09/28/23 09/28/23 History calcium carbonate 1,000 mg PO .Q2HR PRN .gerd 09/28/23 09/28/23 History carboxymethylcellulose sodium 1 % 1 drp OPL Q6 PRN Dry Eyes 09/28/23 09/28/23 History eye drops (Artificial Tears (carboxymethylcellulose)) carvedilol 12.5 mg tablet 12.5 mg PO AMHS 09/28/23 09/28/23 History colestipol 1 gram tablet 2 g PO AMHS 09/28/23 09/28/23 History diclofenac sodium 1 % topical gel 2 g topical QID 09/28/23 09/28/23 History famotidine 10 mg tablet 10 mg PO HS 09/28/23 09/28/23 History gabapentin 300 mg capsule 300 mg PO TID 09/28/23 09/28/23 History hydralazine 50 mg tablet 75 mg PO QID 09/28/23 09/28/23 History levothyroxine 75 mcg tablet 75 mcg PO QAM 09/28/23 09/28/23 History loratadine 5 mg-pseudoephedrine ER 1 tab PO Q12H 09/28/23 09/28/23 History 120 mg tablet,extended release,12hr (Claritin-D 12 Hour) losartan 100 mg tablet 100 mg PO QAM 09/28/23 09/28/23 History magnesium oxide 500 mg PO DAILY 09/28/23 09/28/23 History ondansetron HCl 4 mg tablet 4 mg PO Q6H PRN Nausea 09/28/23 09/28/23 History oxycodone 5 mg tablet 5 mg PO Q6 PRN .Pain 5-8 09/28/23 09/28/23 History oxycodone 5 mg tablet 10 mg PO Q6 PRN .Pain 9-10 09/28/23 09/28/23 History pantoprazole 40 mg tablet,delayed 40 mg PO DAILY 09/28/23 09/28/23 History release polyethylene glycol 3350 17 gram 17 g PO DAILY 09/28/23 09/28/23 History oral powder packet (Miralax) polysaccharide iron complex 150 mg 150 mg PO DAILY 09/28/23 09/28/23 History iron capsule (Ferrex) potassium chloride 20 mEq 20 meq PO QAM 09/28/23 09/28/23 History tablet,extended release(part/cryst) prednisone 5 mg tablet 5 mg PO DAILY 09/28/23 09/28/23 History promethazine 25 mg/mL injection 25 mg IM Q6H PRN Nausea 09/28/23 09/28/23 History solution (Phenergan) rivaroxaban 20 mg tablet (Xarelto) 20 mg PO QAM 09/28/23 09/28/23 History ropinirole 2 mg tablet 2 mg PO HS 09/28/23 09/28/23 History tizanidine 4 mg tablet 4 mg PO HS 09/28/23 09/28/23 History travoprost 0.004 % eye drops 2 drp OPB QPM 09/28/23 09/28/23 History venlafaxine 75 mg capsule,extended 75 mg PO QAM 09/28/23 09/28/23 History release 24 hr (Effexor XR) venlafaxine 75 mg capsule,extended 150 mg PO .QAM UD 09/28/23 09/28/23 History release 24 hr (Effexor XR) Patient History Medical History (Updated 10/01/23 @ 16:33 by Chidi Bernal MD) [facility] Low hemoglobin and low hematocrit Dysphagia Gait abnormality Weakness Low back pain Personal history of venous thrombosis and embolism Other intestinal Escherichia coli infections Cognitive communication deficit Adult failure to thrive Herniated lumbar disc without myelopathy Left central disc herniation at L5-S1 Lumbar radiculopathy High cholesterol Anxiety Rheumatoid arthritis FOLLOWS DR. TREVINO Hypertension Surgical History History of total bilateral knee replacement (TKR) History of carpal tunnel release RIGHT HAND Hx of arthroscopy RIGHT KNEE (MENISCUS) Hx of tonsillectomy Hx of hysterectomy Hx laparoscopic cholecystectomy Family History Mother Family history of reaction to anesthesia SLOW TO AWAKEN Social History Smoking Status: Never smoker Second Hand Exposure: No; Do You Dip or Chew Tobacco: No; Hx Alcohol Use: No Hx Substance Use: No Preferred Language: Bulgarian Communication Ability: Impaired Visual Impairment: No Limitations Dry House Tender Required: No Beliefs That Will Affect Care: Zoroastrianism marital status: Single Current Living Situation: Halfway Current Living Situation Comment: pt is resident at [facility] How many Children do You have: 0 Feels Safe at Home: Yes Assistive Devices: Wheelchair Review of System A 10 point review of systems obtained. Pertinent positives as per HPI Physical Exam Physical Exam: Gen- NAD, On RA Neck- supple HEENT- anicteric sclera, fair dentition Lungs- No increased work of breathing Abd- soft, not tender, not distended - chong in place. No suprapubic or CVA tenderness Ext- BL LE 1+ pitting edema L>R, Left knee tenderness. Left heel ulcer with serous sang drainage,,ild eileen wound redness + neuropathy. Skin- See ext exam. Left heel ulcer Neuro-Awake, alert, oriented *3 Psych- Normal mood cooperative Results & Data Vital Signs (Past 12 Hours) Vital Signs Temp Pulse Pulse Resp BP BP Pulse Ox 10/01/23 14:37 87 16 92 10/01/23 14:34 36.6 C 88 16 188/81 H 93 10/01/23 10:40 74 16 93 10/01/23 09:05 91 H 145/67 H 10/01/23 08:00 84 10/01/23 07:35 36.4 C L 84 19 199/84 H 91 10/01/23 07:04 87 18 92 O2 Del Method 10/01/23 14:37 Room Air 10/01/23 14:34 Room Air 10/01/23 10:40 Room Air 10/01/23 09:05 10/01/23 08:00 10/01/23 07:35 Room Air 10/01/23 07:04 Room Air Laboratory Results Laboratory Results - last 48 hr 09/28/23 09/29/23 09/30/23 19:05 17:19 06:01 WBC 16.10 H RBC 2.59 L Hgb 7.9 L Hct 25.2 L MCV 97.3 MCH 30.5 MCHC 31.3 L RDW Std Deviation 58.3 H RDW Coeff of Mario 16.3 H Plt Count 236 MPV 8.9 L Immature Gran % (Auto) 2.5 Neut % (Auto) 90.0 Lymph % (Auto) 3.4 [place] % (Auto) 3.9 Eos % (Auto) 0.0 Baso % (Auto) 0.2 Neut # (Auto) 14.50 H Lymph # (Auto) 0.54 L [place] # (Auto) 0.63 H Eos # (Auto) 0.00 Baso # (Auto) 0.03 Immature Gran # (Auto) 0.40 H Dohle Bodies 1+ Polychromasia 1+ Sodium 137 Potassium 4.1 Chloride 103 Carbon Dioxide 28 Anion Gap 6 BUN 59 H Creatinine 2.08 H D Est Cr Clr Drug Dosing 20.3 Est GFR ( Amer) 25.4 Est GFR (Non-Af Amer) 21.9 BUN/Creatinine Ratio 28.4 H Glucose 111 H Calcium 8.6 Magnesium 2.7 H Total Bilirubin 1.0 AST 39 ALT 49 Alkaline Phosphatase 88 Troponin I High Sens 76.5 H* D C-Reactive Protein Total Protein 5.4 L Albumin 2.9 L Globulin 2.5 Albumin/Globulin Ratio 1.2 Streptococcus sp PCR DETECTED A Bld Cult ID Panel PCR See PCR Comment 09/30/23 10/01/23 12:52 07:11 WBC 16.03 H RBC 2.79 L Hgb 8.2 L 8.5 L Hct 26.9 L MCV 96.4 MCH 30.5 MCHC 31.6 L RDW Std Deviation 56.0 H RDW Coeff of Mario 15.6 H Plt Count 243 MPV 8.7 L Immature Gran % (Auto) 1.2 Neut % (Auto) 88.3 Lymph % (Auto) 5.1 [place] % (Auto) 5.2 Eos % (Auto) 0.0 Baso % (Auto) 0.2 Neut # (Auto) 14.13 H Lymph # (Auto) 0.82 L [place] # (Auto) 0.84 H Eos # (Auto) 0.00 Baso # (Auto) 0.04 Immature Gran # (Auto) 0.20 Dohle Bodies Polychromasia Sodium 139 Potassium 4.0 Chloride 104 Carbon Dioxide 27 Anion Gap 8 BUN 50 H Creatinine 1.89 H Est Cr Clr Drug Dosing 22.7 Est GFR ( Amer) 28.5 Est GFR (Non-Af Amer) 24.6 BUN/Creatinine Ratio 26.5 H Glucose 106 H Calcium 8.9 Magnesium 2.6 H Total Bilirubin 1.0 AST 20 ALT 39 Alkaline Phosphatase 101 Troponin I High Sens C-Reactive Protein 20.24 H Total Protein 6.0 Albumin 3.2 L Globulin 2.8 Albumin/Globulin Ratio 1.1 Streptococcus sp PCR Bld Cult ID Panel PCR Diagnostic Findings Microbiology 09/28/23 19:40 Blood Aerobic Blood Culture - Preliminary Group G Beta Strep 09/28/23 19:40 Blood Anaerobic Blood Culture - Preliminary Group G Beta Strep 09/28/23 19:05 Blood Aerobic Blood Culture - Preliminary Group G Beta Strep 09/28/23 19:05 Blood Anaerobic Blood Culture - Preliminary Group G Beta Strep Chest X-Ray 09/28/23 19:00 XR chest 1V portable CLINICAL HISTORY: Chest pain, nonspecific TECHNIQUE: Single frontal radiograph of the chest was obtained. Comparison: Comparison is made to chest radiograph 11/03/2022 FINDINGS: No lines and tubes are seen. The cardiomediastinal silhouette is normal. Multifocal airspace opacities are seen. No evidence of pleural effusion or pneumothorax. IMPRESSION: Multifocal airspace opacities which may represent pneumonia, aspiration, or alveolar edema. ACT 112: Negative or not required by law. Electronically signed by: Gui Coy M.D. 09/28/2023 7:20 PM Venous Doppler Study 09/28/23 20:13 ULTRASOUND LEFT LOWER EXTREMITY VENOUS CLINICAL HISTORY: Left leg pain. COMPARISON STUDY: Bilateral lower extremity venous ultrasound dated 11/01/2022 TECHNIQUE: Portable real-time, grayscale, and color Doppler sonography of the deep veins of the left lower extremity was performed from the inguinal crease to the calf. Compression and augmentation were utilized. FINDINGS: There is no sonographic evidence of deep venous thrombosis identified in the left lower extremity. The common femoral, superficial femoral, and popliteal veins are patent and normally compressible. The greater saphenous vein and the profunda femoris vein at the junction with the common femoral vein are clear. The visualized calf veins are patent. Soft tissue edema is present in the left leg. IMPRESSION: There is no sonographic evidence of deep venous thrombosis identified in the left lower extremity. ACT 112: Negative or not required by law. Electronically signed by: Ulises Yoo M.D. 09/28/2023 11:21 PM Chest X-Ray 10/01/23 11:18 XR chest 1V portable CLINICAL HISTORY: Edema. COMPARISON STUDY: Chest radiograph September 28, 2023. 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 Cardiomegaly is again noted. Mediastinal contours are stable. There is no pneumothorax. Small bilateral pleural effusions are present. Interstitial and alveolar edema persists although has improved since prior exam. IMPRESSION: 1. Persistent but improved interstitial and alveolar pulmonary edema. 2. Small bilateral pleural effusions. ACT 112: Negative or not required by law. Electronically signed by: Shivam Ward M.D. 10/01/2023 12:05 PM Medications Administered Home Medications Medication Instructions Recorded Confirmed Last Taken acetaminophen 325 mg tablet 650 mg PO Q6 PRN Fever Or Pain 09/28/23 09/28/23 Unknown (Tylenol) brimonidine 0.2 %-timolol 0.5 % 1 drp OPB BID 09/28/23 09/28/23 Unknown eye drops bumetanide 2 mg tablet 2 mg PO QAM 09/28/23 09/28/23 Unknown calcium carbonate 1,000 mg PO .Q2HR PRN .gerd 09/28/23 09/28/23 Unknown carboxymethylcellulose sodium 1 % 1 drp OPL Q6 PRN Dry Eyes 09/28/23 09/28/23 Unknown eye drops (Artificial Tears (carboxymethylcellulose)) carvedilol 12.5 mg tablet 12.5 mg PO AMHS 09/28/23 09/28/23 Unknown colestipol 1 gram tablet 2 g PO AMHS 09/28/23 09/28/23 Unknown diclofenac sodium 1 % topical gel 2 g topical QID 09/28/23 09/28/23 Unknown famotidine 10 mg tablet 10 mg PO HS 09/28/23 09/28/23 Unknown gabapentin 300 mg capsule 300 mg PO TID 09/28/23 09/28/23 Unknown hydralazine 50 mg tablet 75 mg PO QID 09/28/23 09/28/23 Unknown levothyroxine 75 mcg tablet 75 mcg PO QAM 09/28/23 09/28/23 Unknown loratadine 5 mg-pseudoephedrine ER 1 tab PO Q12H 09/28/23 09/28/23 Unknown 120 mg tablet,extended release,12hr (Claritin-D 12 Hour) losartan 100 mg tablet 100 mg PO QAM 09/28/23 09/28/23 Unknown magnesium oxide 500 mg PO DAILY 09/28/23 09/28/23 Unknown ondansetron HCl 4 mg tablet 4 mg PO Q6H PRN Nausea 09/28/23 09/28/23 Unknown oxycodone 5 mg tablet 5 mg PO Q6 PRN .Pain 5-8 09/28/23 09/28/23 09/25/23 oxycodone 5 mg tablet 10 mg PO Q6 PRN .Pain 9-10 09/28/23 09/28/23 09/28/23 08:35 pantoprazole 40 mg tablet,delayed 40 mg PO DAILY 09/28/23 09/28/23 Unknown release polyethylene glycol 3350 17 gram 17 g PO DAILY 09/28/23 09/28/23 Unknown oral powder packet (Miralax) polysaccharide iron complex 150 mg 150 mg PO DAILY 09/28/23 09/28/23 Unknown iron capsule (Ferrex) potassium chloride 20 mEq 20 meq PO QAM 09/28/23 09/28/23 Unknown tablet,extended release(part/cryst) prednisone 5 mg tablet 5 mg PO DAILY 09/28/23 09/28/23 Unknown promethazine 25 mg/mL injection 25 mg IM Q6H PRN Nausea 09/28/23 09/28/23 Unknown solution (Phenergan) rivaroxaban 20 mg tablet (Xarelto) 20 mg PO QA 09/28/23 09/28/23 09/28/23 ropinirole 2 mg tablet 2 mg PO HS 09/28/23 09/28/23 Unknown tizanidine 4 mg tablet 4 mg PO HS 09/28/23 09/28/23 Unknown travoprost 0.004 % eye drops 2 drp OPB QPM 09/28/23 09/28/23 Unknown venlafaxine 75 mg capsule,extended 75 mg PO QAM 09/28/23 09/28/23 Unknown release 24 hr (Effexor XR) venlafaxine 75 mg capsule,extended 150 mg PO .[facility] 09/28/23 09/28/23 Unknown release 24 hr (Effexor XR) Active Medications Generic Name Dose Route Start Last Admin Trade Name Freq PRN Reason Stop Dose Admin Acetaminophen 1,000 mg 09/29/23 16:26 09/29/23 17:39 Acetaminophen 500 Mg Tab PO 10/29/23 16:25 1,000 mg Q8H PRN Administration Pain or Fever Albuterol 3 ml 09/29/23 07:00 10/01/23 14:37 Albut/Ipratrop 3mg/0.5mg Neb 3 Ml Vial NEB 10/29/23 06:59 3 ml QIDR AMARI Administration Protocol Bumetanide 2 mg 10/01/23 09:00 10/01/23 11:18 Bumetanide 1 Mg Tab PO 10/31/23 08:59 2 mg QAM AMARI Administration Carvedilol 12.5 mg 09/30/23 21:00 10/01/23 07:50 Carvedilol 12.5 Mg Tab PO 10/30/23 20:59 12.5 mg AMHS AMARI Administration Hydralazine HCl 75 mg 09/30/23 21:00 10/01/23 13:51 Hydralazine Tab 50 Mg Tab PO 10/30/23 20:59 75 mg QID AMARI Administration Acetaminophen 1,000 mg in 100 mls @ 400 mls/hr 09/28/23 21:04 09/29/23 04:14 Ofirmev IV 10/01/23 21:03 Infused Q8H PRN Infusion Pain or Fever Linezolid 600 mg in 300 mls @ 300 mls/hr 09/29/23 07:00 10/01/23 09:07 Zyvox IV 10/06/23 06:59 Infused Q12H AMARI Infusion Levothyroxine Sodium 75 mcg 10/01/23 09:00 10/01/23 09:59 Levothyroxine Sodium 75 Mcg Tablet PO 10/31/23 08:59 75 mcg DAILYBB AMARI Administration Losartan Potassium 100 mg 10/01/23 09:00 10/01/23 07:50 Losartan Potassium 50 Mg Tab PO 10/31/23 08:59 100 mg QAM AMARI Administration Pantoprazole Sodium 40 mg 10/01/23 09:00 10/01/23 09:59 Pantoprazole 40 Mg Tab PO 10/31/23 08:59 40 mg QAM AMARI Administration Prednisone 10 mg 10/01/23 09:00 10/01/23 07:51 Prednisone 10 Mg Tablet PO 10/31/23 08:59 10 mg DAILY AMARI Administration Rivaroxaban 20 mg 10/01/23 09:00 10/01/23 09:59 Rivaroxaban 20 Mg Tab PO 10/31/23 08:59 20 mg DAILY AMARI Administration
--- NOTE | 2023-10-01 16:34 | Hospitalist Progress Note ---
Date of Service October 01, 2023 Assessment & Plan (1) Sepsis due to pneumonia: Plan: Present on admission. Now resolved. Continue treatment of strep bacteremia and pneumonia. Associated with septic shock on admission. Status post pressor therapy. (2) Steroid dependence: Plan: Intravenous hydrocortisone switch back to oral prednisone therapy today, September 30 (3) Streptococcal bacteremia: Plan: Infectious disease consultation requested. Zyvox has been switched to Rocephin today, September 30. Repeat blood cultures obtained today, September 30 (4) Elevated troponin: Plan: Mild on admission. No acute EKG changes. No evidence of acute coronary syndrome. Appears to be due to demand ischemia related to septic shock present on admission (5) Lower extremity ulceration: Plan: Involvement of the left heel with associated cellulitis. Continue antibiotic treatment. Wound care as needed (6) DVT (deep venous thrombosis): Plan: Right lower extremity DVT history. Doppler evaluation negative on admission. Xarelto restarted today, September 30 (7) CKD (chronic kidney disease), stage III: Plan: Acute kidney injury superimposed on CKD, stage III. Improved. Monitor intake and output. Serial labs (8) Metabolic encephalopathy: Plan: Present on admission. Now resolved Plan Anticipate eventual return to [facility] care Admission and Anticipated Discharge Date Admission Date: September 28, 2023 Subjective Alert and oriented. Continued brisk diuresis with Bumex therapy. Chest x-ray done today, September 30, looks better. Infectious disease consultation noted. Repeat blood culture today, September 30. She is requesting medication to help her sleep at night. She is now on room air, 92%. Intravenous hydrocortisone has been switched back to oral prednisone. Xarelto has been restarted along with other medications. Infectious disease consultation requested. Review of Systems 2 Review of Systems: Constitutional-no fever or chills ENT-no blurred vision, no double vision, no epistaxis, no sore throat Respiratory-no cough, no wheezing, no shortness of breath Cardiac-no palpitations, no chest pain, no syncope GI-no nausea, vomiting, diarrhea, melena, hematochezia -no urinary retention, no urinary incontinence, no dysuria, no hematuria Musculoskeletal-no joint pain, no muscle tenderness Skin-no bruising, no rashes, no pruritus Neuro-no isolated weakness, no paresthesia, no weakness Psych-no depression, no anxiety Physical Exam 2 Physical Exam: General-alert and oriented x3, no fever, no chills HEENT-head atraumatic and normocephalic, pupils equal and reactive to light, extraocular muscles intact Neck-no lymphadenopathy or thyromegaly, trachea midline Chest-clear to auscultation. No rales, wheezing or rhonchi Cardiac-regular rate and rhythm, normal S1 and S2 Abdomen-normal bowel sounds, no hepatosplenomegaly Extremities-no cyanosis, clubbing, or edema Neuro-cranial nerves II through XII intact, motor and sensory function within normal limits, strength symmetrical, no focal deficits Psych-normal affect, normal mood Results & Data Results & Data Vital Signs (Past 12 Hours) Vital Signs Temp Pulse Pulse Resp BP BP Pulse Ox 10/01/23 14:37 87 16 92 10/01/23 14:34 36.6 C 88 16 188/81 H 93 10/01/23 10:40 74 16 93 10/01/23 09:05 91 H 145/67 H 10/01/23 08:00 84 10/01/23 07:35 36.4 C L 84 19 199/84 H 91 10/01/23 07:04 87 18 92 O2 Del Method 10/01/23 14:37 Room Air 10/01/23 14:34 Room Air 10/01/23 10:40 Room Air 10/01/23 09:05 10/01/23 08:00 10/01/23 07:35 Room Air 10/01/23 07:04 Room Air Laboratory Results 10/01/23 07:11 10/01/23 07:11 PG Care Time/CCT Total # of Minutes Spent Total Time Spent with Patient: Total time spent is greater than 50% in coordination of care (as documented) at patient's floor/unit and/or counseling patient: Coding Level of Care Code 19505 SUB INP/OBS CARE 3/50MIN Diagnoses Sepsis due to pneumonia J18.9; A41.9 Steroid dependence F19.20 Streptococcal bacteremia R78.81; B95.5 Elevated troponin R77.8 Lower extremity ulceration L97.909 DVT (deep venous thrombosis) I82.409 CKD (chronic kidney disease), stage III N18.31 Chronic kidney disease stage 3 subtype: stage 3a (GFR 45-59) Metabolic encephalopathy G93.41 (7) CKD (chronic kidney disease), stage III Chronic kidney disease stage 3 subtype: stage 3a (GFR 45-59) Qualified Code(s): N18.31 - Chronic kidney disease, stage 3a
[2023-10-01] MEDS: cefTRIAXone SODIUM 2,000 MG/50 ML BAG IV SCH (17:39)
[2023-10-01] MEDS: ZOLPIDEM TARTRATE 5 MG TAB PO SCH (20:50)
--- NOTE | 2023-10-01 23:22 | Electrocardiogram Report ---
Test Reason : Blood Pressure : / mmHG Vent. Rate : 076 BPM Atrial Rate : 076 BPM P-R Int : 144 ms QRS Dur : 090 ms QT Int : 428 ms P-R-T Axes : 050 013 065 degrees QTc Int : 481 ms Normal sinus rhythm Possible Left atrial enlargement Low voltage QRS Borderline ECG When compared with ECG of 29-SEP-2023 06:17, (unconfirmed) No significant change was found Confirmed by Dave Lema ([id number]) on 10/01/2023 11:21:48 PM Referred By: [facility] Confirmed By:Dave Lema
--- NOTE | 2023-10-02 06:59 | Electrocardiogram Report ---
Test Reason : Blood Pressure : / mmHG Vent. Rate : 082 BPM Atrial Rate : 082 BPM P-R Int : 148 ms QRS Dur : 094 ms QT Int : 380 ms P-R-T Axes : 046 010 051 degrees QTc Int : 443 ms Normal sinus rhythm Possible Left atrial enlargement Septal infarct , age undetermined Abnormal ECG When compared with ECG of 30-SEP-2023 05:34, (unconfirmed) No significant change was found Confirmed by Dave Lema ([id number]) on 10/02/2023 6:58:56 AM Referred By: [facility] Confirmed By:Dave Lema
[2023-10-02 09:39] LABS: Basophils # (auto) 0.03 K/uL (0.00-0.20); Basophils % (auto) 0.3 %; Eosinophils # (auto) 0.11 K/uL (0.00-0.50); Hematocrit (blood only) 27.6 % (37.0-47.0); Hemoglobin 8.6 g/dl (12.0-16.0); Immature Granulocytes # (auto) 0.22 K/uL (0.01-0.20); Lymphocytes # (auto) 0.72 K/uL (1.20-3.40); Lymphocytes % (auto) 6.5 %; Mean Corpuscular Hemoglobin 29.4 pg (25.0-34.0); Mean Corpuscular Hgb Conc 31.2 g/dL (32.0-36.0); Mean Corpuscular Volume 94.2 fL (80.0-100.0); Mean Platelet Volume 8.6 fL (9.4-12.4); Monocytes # (auto) 0.86 K/uL (0.11-0.59); Monocytes % (auto) 7.7 %; Neutrophils # (auto) 9.19 K/uL (1.40-6.50); Neutrophils % (auto) 82.5 %; Platelet Count 242 K/uL (130-400); Red Blood Count 2.93 M/uL (4.20-5.40); White Blood Count 11.13 K/ul (4.8-10.8)
[2023-10-02 10:03] LABS: BUN Creatinine Ratio 26.3 (10-20); Calcium 8.6 mg/dl (8.6-10.3); Est GFR (African American) 27.7 ml/min; Est GFR (Non-African American) 23.9 ml/min; Potassium 3.2 mmol/L (3.5-5.1)
[2023-10-02] MEDS: amLODIPine BESYLATE 5 MG TAB PO SCH (10:36)
[2023-10-02] MEDS ORDERED: ALBUT/IPRATROP 3MG/0.5MG NEB 3 ML VIAL NEB PRN (10:37)
--- NOTE | 2023-10-02 13:38 | Infectious Disease Progress Nt ---
Date of Service October 02, 2023 Assessment & Plan (1) Streptococcal bacteremia: (2) Lower extremity ulceration: (3) Acute respiratory failure with hypoxia: Plan This is an 82-year-old female with a past medical history of CKD, RA on steroids, neuropathy, respiratory failure, right lower extremity DVT, restless leg syndrome, who presents from her senior living for increasing hypoxia. Patient is awake and alert but does not remember what brought her to the hospital. She states that at her SNF she was told her blood pressure was low. She began to feel unwell, weak and cold and does not remember what happened from that point to when she presented to the ED. In the ambulance she was hypoxic to the 70s and required 15 L nonrebreather. She vomited en route to the hospital. She endorses chronic bilateral lower extremity pain/neuropathy. She has a left heel ulcer for approximately 1 month. She denies any pain at the site but sensation at her bilateral feet are diminished. She denies cough, rash, headaches, change in vision, dental pain, abdominal pain, change in urination, change in bowel habits. She has bilateral total knee replacements. She has increased pain in the left knee. She denies any recent falls. In the ED she is febrile with a T38.4, heart rate 110, respiratory rate 37, blood pressure 156/80, O2 sats 94% on 15 L nonrebreather. She was subsequently hypotensive and responded to IVF. Labs: WBC 19.6, H/H11.1/35.6, BUN 59, creatinine 2.41, lactate 2.6, BNP 454, troponin 163.5, CRP 20.24, respiratory viral panel negative. Chest x-ray showed multifocal airspace opacity which may represent pneumonia, aspiration or alveolar edema. Repeat chest x-ray showed persistent but improved interstitial and alveolar pulmonary edema and small bilateral pleural effusion. She received a dose of vancomycin and Zosyn. She is now on Linezolid. Blood cultures grew group G Streptococcus in 4 out of 4 bottles. Echocardiogram with no clear evidence of vegetations or valvular pathology. There is severe pulmonary hypertension infectious disease consulted for GPC bacteremia. On my initial exam she is off supplemental 02 and feels well. She complains of mild left knee pain and chronic heel wound. Microbiology Blood cultures 09/27/ bottles group G beta strep Blood cultures 09/30 NGTD Antibiotics Zosyn 09/27 Vancomycin 09/27 Linezolid Ceftriaxone 09/30- ongoing Group G Streptococcus bacteremia may be secondary to chronic left heel ulcer with cellulitis. Other possibilities include ? pneumonia and r/o Left prosthetic joint infection ( both less likel). She presents with increasing shortness of breath and has multifocal airspace opacities which may represent pneumonia, aspiration, or alveolar edema. No on RA ( 10/01). TTE with no clear evidence of vegetations or valvular pathology. There is severe pulmonary hypertension .On exam she has a left heel chronic ulcer. There is surrounding periwound erythema w/serosanguineous drainage. She has bilateral TKA Left knee with tenderness to palpation. She complains of chronic BL LE pain L>R. She has fair dentition. #Group G Streptococcus bacteremia # Left heel ulcer with cellulitis # Sepsis #Leukocytosis, improving #Acute hypoxic respiratory failure #DENNIS on CKD #Bilateral TKA Recommendations: Continue ceftriaxone 2 g IV daily Check left knee x-ray Follow-up repeat blood cultures 09/30 ID will continue to follow Mariely Moscoso MD, MPH Infectious Disease [facility] Call [phone] with questions. Admission and Anticipated Discharge Date Admission Date: September 28, 2023 Subjective This patient recommendation is based on a telemedicine consult request which was completed asynchronously through chart review and information provided by the primary physician. The patient was not seen or examined today. The evaluation is consultative in nature and all patient care and treatment decisions can either b e accepted or rejected by the patient's primary hospital-based treating physician using their own independent medical judgment for their patient. Time Spent Reviewing Chart: 21 - 30 minutes afebrile, WBC down to 11.13 Results & Data Vital Signs (Past 12 Hours) Vital Signs Temp Pulse Pulse Resp BP BP Pulse Ox 10/02/23 10:31 36.6 C 76 19 155/77 H 94 10/02/23 08:00 87 10/02/23 08:00 10/02/23 07:36 36.6 C 85 19 196/76 H 96 10/02/23 07:22 82 16 92 10/02/23 03:15 36.6 C 84 16 165/74 H 91 O2 Del Method 10/02/23 10:31 Room Air 10/02/23 08:00 10/02/23 08:00 Room Air 10/02/23 07:36 Room Air 10/02/23 07:22 Room Air 10/02/23 03:15 Room Air Laboratory Results Short CBC 10/02/23 Range/Units 09:10 WBC 11.13 H (4.8-10.8) K/ul Hgb 8.6 L (12.0-16.0) g/dl Hct 27.6 L (37.0-47.0) % Plt Count 242 (130-400) K/uL BMP 10/02/23 09:10 Sodium 139 Potassium 3.2 L Chloride 103 Carbon Dioxide 24 BUN 51 H Creatinine 1.94 H Glucose 127 H Calcium 8.6 Diagnostic Findings Microbiology 10/01/23 07:11 Blood Aerobic Blood Culture - Preliminary No growth in Aerobic bottle after 24 hours. 10/01/23 07:05 Blood Aerobic Blood Culture - Preliminary No growth in Aerobic bottle after 24 hours. 10/01/23 07:05 Blood Anaerobic Blood Culture - Preliminary No growth in Anaerobic bottle after 24 hours. 09/28/23 19:40 Blood Aerobic Blood Culture - Final Group G Beta Strep 09/28/23 19:40 Blood Anaerobic Blood Culture - Final Group G Beta Strep 09/28/23 19:05 Blood Aerobic Blood Culture - Final Group G Beta Strep 09/28/23 19:05 Blood Anaerobic Blood Culture - Final Group G Beta Strep Chest X-Ray 10/01/23 11:18 XR chest 1V portable CLINICAL HISTORY: Edema. COMPARISON STUDY: Chest radiograph September 28, 2023. 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 Cardiomegaly is again noted. Mediastinal contours are s table. There is no pneumothorax. Small bilateral pleural effusions are present. Interstitial and alveolar edema persists although has improved since prior exam. IMPRESSION: 1. Persistent but improved interstitial and alveolar pulmonary edema. 2. Small bilateral pleural effusions. ACT 112: Negative or not required by law. Electronically signed by: Shivam Ward M.D. 10/01/2023 12:05 PM Medications Administered Home Medications Medication Instructions Recorded Confirmed Last Taken acetaminophen 325 mg tablet 650 mg PO Q6 PRN Fever Or Pain 09/28/23 09/28/23 Unknown (Tylenol) brimonidine 0.2 %-timolol 0.5 % 1 drp OPB BID 09/28/23 09/28/23 Unknown eye drops bumetanide 2 mg tablet 2 mg PO QAM 09/28/23 09/28/23 Unknown calcium carbonate 1,000 mg PO .Q2HR PRN .gerd 09/28/23 09/28/23 Unknown carboxymethylcellulose sodium 1 % 1 drp OPL Q6 PRN Dry Eyes 09/28/23 09/28/23 Unknown eye drops (Artificial Tears (carboxymethylcellulose)) carvedilol 12.5 mg tablet 12.5 mg PO AMHS 09/28/23 09/28/23 Unknown colestipol 1 gram tablet 2 g PO AMHS 09/28/23 09/28/23 Unknown diclofenac sodium 1 % topical gel 2 g topical QID 09/28/23 09/28/23 Unknown famotidine 10 mg tablet 10 mg PO HS 09/28/23 09/28/23 Unknown gabapentin 300 mg capsule 300 mg PO TID 09/28/23 09/28/23 Unknown hydralazine 50 mg tablet 75 mg PO QID 09/28/23 09/28/23 Unknown levothyroxine 75 mcg tablet 75 mcg PO QAM 09/28/23 09/28/23 Unknown loratadine 5 mg-pseudoephedrine ER 1 tab PO Q12H 09/28/23 09/28/23 Unknown 120 mg tablet,extended release,12hr (Claritin-D 12 Hour) losartan 100 mg tablet 100 mg PO QAM 09/28/23 09/28/23 Unknown magnesium oxide 500 mg PO DAILY 09/28/23 09/28/23 Unknown ondansetron HCl 4 mg tablet 4 mg PO Q6H PRN Nausea 09/28/23 09/28/23 Unknown oxycodone 5 mg tablet 5 mg PO Q6 PRN .Pain 5-8 09/28/23 09/28/23 09/25/23 oxycodone 5 mg tablet 10 mg PO Q6 PRN .Pain 9-10 09/28/23 09/28/23 09/28/23 08:35 pantoprazole 40 mg tablet,delayed 40 mg PO DAILY 09/28/23 09/28/23 Unknown release polyethylene glycol 3350 17 gram 17 g PO DAILY 09/28/23 09/28/23 Unknown oral powder packet (Miralax) polysaccharide iron complex 150 mg 150 mg PO DAILY 09/28/23 09/28/23 Unknown iron capsule (Ferrex) potassium chloride 20 mEq 20 meq PO QAM 09/28/23 09/28/23 Unknown tablet,extended release(part/cryst) prednisone 5 mg tablet 5 mg PO DAILY 09/28/23 09/28/23 Unknown promethazine 25 mg/mL injection 25 mg IM Q6H PRN Nausea 09/28/23 09/28/23 Unknown solution (Phenergan) rivaroxaban 20 mg tablet (Xarelto) 20 mg PO QAM 09/28/23 09/28/23 09/28/23 ropinirole 2 mg tablet 2 mg PO HS 09/28/23 09/28/23 Unknown tizanidine 4 mg tablet 4 mg PO HS 09/28/23 09/28/23 Unknown travoprost 0.004 % eye drops 2 drp OPB QPM 09/28/23 09/28/23 Unknown venlafaxine 75 mg capsule,extended 75 mg PO QAM 09/28/23 09/28/23 Unknown release 24 hr (Effexor XR) venlafaxine 75 mg capsule,extended 150 [facility] 09/28/23 09/28/23 Unknown release 24 hr (Effexor XR) Active Medications Generic Name Dose Route Start Last Admin Trade Name Freq PRN Reason Stop Dose Admin Acetaminophen 1,000 mg 09/29/23 16:26 09/29/23 17:39 Acetaminophen 500 Mg Tab PO 10/29/23 16:25 1,000 mg Q8H PRN Administration Pain or Fever Amlodipine Besylate 5 mg 10/02/23 09:10 10/02/23 10:36 Amlodipine Besylate 5 Mg Tab PO 11/01/23 09:09 5 mg QAM AMARI Administration Bumetanide 2 mg 10/01/23 09:00 10/02/23 07:59 Bumetanide 1 Mg Tab PO 10/31/23 08:59 2 mg QAM AMARI Administration Carvedilol 12.5 mg 09/30/23 21:00 10/02/23 07:59 Carvedilol 12.5 Mg Tab PO 10/30/23 20:59 12.5 mg AMHS AMARI Administration Hydralazine HCl 75 mg 09/30/23 21:00 10/02/23 07:59 Hydralazine Tab 50 Mg Tab PO 10/30/23 20:59 75 mg QID AMARI Administration Ceftriaxone Sodium 2,000 mg in 50 mls @ 100 mls/hr 10/01/23 17:00 10/01/23 18:13 Rocephin IV 10/15/23 16:59 Infused Q24H AMARI Infusion Levothyroxine Sodium 75 mcg 10/01/23 09:00 10/02/23 06:39 Levothyroxine Sodium 75 Mcg Tablet PO 10/31/23 08:59 75 mcg DAILYBB AMARI Administration Losartan Potassium 100 mg 10/01/23 09:00 10/02/23 07:59 Losartan Potassium 50 Mg Tab PO 10/31/23 08:59 100 mg QAM AMARI Administration Pantoprazole Sodium 40 mg 10/01/23 09:00 10/02/23 07:59 Pantoprazole 40 Mg Tab PO 10/31/23 08:59 40 mg QAM AMARI Administration Prednisone 10 mg 10/01/23 09:00 10/02/23 07:59 Prednisone 10 Mg Tablet PO 10/31/23 08:59 10 mg DAILY AMARI Administration Rivaroxaban 20 mg 10/01/23 09:00 10/02/23 07:59 Rivaroxaban 20 Mg Tab PO 10/31/23 08:59 20 mg DAILY AMARI Administration Zolpidem Tartrate 5 mg 10/01/23 21:00 10/01/23 20:50 Zolpidem Tartrate 5 Mg Tab PO 10/31/23 20:59 5 mg HS AMARI Administration
[2023-10-02] MEDS: POTASSIUM CHLORIDE CRTAB 20 MEQ TABCR PO STA (14:03)
--- NOTE | 2023-10-02 14:51 | Hospitalist Progress Note ---
Date of Service October 02, 2023 Assessment & Plan (1) Sepsis due to pneumonia: Plan: Present on admission. Now resolved. Continue treatment of strep bacteremia and pneumonia. Associated with septic shock on admission. Status post pressor therapy. (2) Steroid dependence: Plan: Intravenous hydrocortisone switch back to oral prednisone therapy on September 30 (3) Streptococcal bacteremia: Plan: Final ID recommendations pending. Zyvox has been switched to Rocephin on September 30. Repeat blood cultures obtained on September 30 remain negative. (4) Elevated troponin: Plan: Mild on admission. No acute EKG changes. No evidence of acute coronary syndrome. Appears to be due to demand ischemia related to septic shock present on admission (5) Lower extremity ulceration: Plan: Involvement of the left heel with associated cellulitis. Continue antibiotic treatment. Wound care as needed (6) DVT (deep venous thrombosis): Plan: Right lower extremity DVT history. Doppler evaluation negative on admission. Xarelto restarted on September 30 (7) CKD (chronic kidney disease), stage III: Plan: Acute kidney injury superimposed on CKD, stage III. Now back to baseline. Monitor intake and output. Serial labs (8) Metabolic encephalopathy: Plan: Present on admission. Now resolved Plan [facility] to [facility] tomorrow, October 02 Admission and Anticipated Discharge Date Admission Date: September 28, 2023 Subjective Alert and oriented. She is pleased that Ambien helped her sleep last night. Blood cultures obtained on September 30 remain negative to date. Final infectious disease recommendations remain pending. Amlodipine was started today for blood pressure control and seems to have helped. Oral potassium replacement also given today, October 01. She remains on room air. She probably will [facility] to [facility], October 02. Review of Systems 2 Review of Systems: Constitutional-no fever or chills ENT-no blurred vision, no double vision, no epistaxis, no sore throat Respiratory-no cough, no wheezing, no shortness of breath Cardiac-no palpitations, no chest pain, no syncope GI-no nausea, vomiting, diarrhea, melena, hematochezia -no urinary retention, no urinary incontinence, no dysuria, no hematuria Musculoskeletal-no joint pain, no muscle tenderness Skin-no bruising, no rashes, no pruritus Neuro-no isolated weakness, no paresthesia, no weakness Psych-no depression, no anxiety Physical Exam 2 Physical Exam: General-alert and oriented x3, no fever, no chills HEENT-head atraumatic and normocephalic, pupils equal and reactive to light, extraocular muscles intact Neck-no lymphadenopathy or thyromegaly, trachea midline Chest-clear to auscultation. No rales, wheezing or rhonchi Cardiac-regular rate and rhythm, normal S1 and S2 Abdomen-normal bowel sounds, no hepatosplenomegaly Extremities-no cyanosis, clubbing, or edema Neuro-cranial nerves II through XII intact, motor and sensory function within normal limits, strength symmetrical, no focal deficits Psych-normal affect, normal mood Results & Data Results & Data Vital Signs (Past 12 Hours) Vital Signs Temp Pulse Pulse Resp BP BP Pulse Ox 10/02/23 10:31 36.6 C 76 19 155/77 H 94 10/02/23 08:00 87 10/02/23 08:00 10/02/23 07:36 36.6 C 85 19 196/76 H 96 10/02/23 07:22 82 16 92 10/02/23 03:15 36.6 C 84 16 165/74 H 91 O2 Del Method 10/02/23 10:31 Room Air 10/02/23 08:00 10/02/23 08:00 Room Air 10/02/23 07:36 Room Air 10/02/23 07:22 Room Air 10/02/23 03:15 Room Air Laboratory Results 10/02/23 09:10 10/02/23 09:10 PG Care Time/CCT Total # of Minutes Spent Total Time Spent with Patient: Total time spent is greater than 50% in coordination of care (as documented) at patient's floor/unit and/or counseling patient: Coding Level of Care Code 79028 SUB INP/OBS CARE 3/50MIN Diagnoses Sepsis due to pneumonia J18.9; A41.9 Steroid dependence F19.20 Streptococcal bacteremia R78.81; B95.5 Elevated troponin R77.8 Lower extremity ulceration L97.909 DVT (deep venous thrombosis) I82.409 CKD (chronic kidney disease), stage III N18.31 Chronic kidney disease stage 3 subtype: stage 3a (GFR 45-59) Metabolic encephalopathy G93.41 (7) CKD (chronic kidney disease), stage III Chronic kidney disease stage 3 subtype: stage 3a (GFR 45-59) Qualified Code(s): N18.31 - Chronic kidney disease, stage 3a
[2023-10-02] MEDS: oxyCODONE HCL IR 5 MG TAB (IMMEDIATE RELEASE) PO PRN (22:15)
[2023-10-03 07:14] LABS: Basophils # (auto) 0.04 K/uL (0.00-0.20); Basophils % (auto) 0.4 %; Eosinophils # (auto) 0.23 K/uL (0.00-0.50); Eosinophils % (auto) 2.5 %; Hemoglobin 8.3 g/dl (12.0-16.0); Immature Granulocytes # (auto) 0.19 K/uL (0.01-0.20); Immature Granulocytes % (auto) 2.1 %; Lymphocytes # (auto) 0.95 K/uL (1.20-3.40); Lymphocytes % (auto) 10.3 %; Mean Corpuscular Hemoglobin 29.6 pg (25.0-34.0); Mean Corpuscular Hgb Conc 31.9 g/dL (32.0-36.0); Mean Corpuscular Volume 92.9 fL (80.0-100.0); Mean Platelet Volume 8.6 fL (9.4-12.4); Monocytes # (auto) 1.06 K/uL (0.11-0.59); Monocytes % (auto) 11.5 %; Neutrophils # (auto) 6.77 K/uL (1.40-6.50); Neutrophils % (auto) 73.2 %; Platelet Count 226 K/uL (130-400); RDW Coefficient of Variation 15.9 % (11.5-14.5); RDW Standard Deviation 54.3 fL (36.4-46.3); White Blood Count 9.24 K/ul (4.8-10.8)
[2023-10-03 07:45] LABS: BUN Creatinine Ratio 23.7 (10-20); Blood Urea Nitrogen 47 mg/dl (6-23); Calcium 8.3 mg/dl (8.6-10.3); Carbon Dioxide 26 mmol/L (21-32); Chloride 106 mmol/L (98-107); Creatinine Clr Calc Pharmacy 20.9 ml/min; Est GFR (Non-African American) 23.3 ml/min; Glucose 76 mg/dl (70-99(Fasting))
[2023-10-03 08:40] LABS: Potassium 3.5 mmol/L (3.5-5.1)
[2023-10-03] MEDS: amLODIPine BESYLATE 5 MG TAB PO STA (10:10)
--- NOTE | 2023-10-03 10:55 | Infectious Disease Progress Nt ---
Date of Service October 03, 2023 Assessment & Plan (1) Streptococcal bacteremia: (2) Lower extremity ulceration: (3) Acute respiratory failure with hypoxia: Plan This is an 82-year-old female with a past medical history of CKD, RA on steroids, neuropathy, respiratory failure, right lower extremity DVT, restless leg syndrome, who presents from her half-way for increasing hypoxia. Patient is awake and alert but does not remember what brought her to the hospital. She states that at her SNF she was told her blood pressure was low. She began to feel unwell, weak and cold and does not remember what happened from that point to when she presented to the ED. In the ambulance she was hypoxic to the 70s and required 15 L nonrebreather. She vomited en route to the hospital. She endorses chronic bilateral lower extremity pain/neuropathy. She has a left heel ulcer for approximately 1 month. She denies any pain at the site but sensation at her bilateral feet are diminished. She denies cough, rash, headaches, change in vision, dental pain, abdominal pain, change in urination, change in bowel habits. She has bilateral total knee replacements. She has increased pain in the left knee. She denies any recent falls. In the ED she is febrile with a T38.4, heart rate 110, respiratory rate 37, blood pressure 156/80, O2 sats 94% on 15 L nonrebreather. She was subsequently hypotensive and responded to IVF. Labs: WBC 19.6, H/H11.1/35.6, BUN 59, creatinine 2.41, lactate 2.6, BNP 454, troponin 163.5, CRP 20.24, respiratory viral panel negative. Chest x-ray showed multifocal airspace opacity which may represent pneumonia, aspiration or alveolar edema. Repeat chest x-ray showed persistent but improved interstitial and alveolar pulmonary edema and small bilateral pleural effusion. She received a dose of vancomycin and Zosyn. She was started on Linezolid. Blood cultures grew group G Streptococcus in 4 out of 4 bottles. Echocardiogram with no clear evidence of vegetations or valvular pathology. There is severe pulmonary hypertension. Infectious disease consulted for GPC bacteremia. On my initial exam, she is off supplemental 02 and feels well. She complains of mild left knee pain and chronic heel wound. Microbiology Blood cultures 09/27 06/13 bottles group G beta strep Blood cultures 09/30 NGTD Antibiotics Zosyn 09/27 Vancomycin 09/27 Linezolid Ceftriaxone 09/30- ongoing Group G Streptococcus bacteremia may be secondary to chronic left heel ulcer with cellulitis. Other possibilities include ? pneumonia ( less likey) and ? Left prosthetic joint infection She presents with increasing shortness of breath and has multifocal airspace opacities which may represent pneumonia, aspiration, or alveolar edema. She is on RA ( 10/01). TTE with no clear evidence of vegetations or valvular pathology. There is severe pulmonary hy pertension .On exam she has a left heel chronic ulcer. There is surrounding periwound erythema w/serosanguineous drainage. She has bilateral TKA. Left knee with tenderness to palpation >>Right . She complains of chronic BL LE pain L>R. She has fair dentition. #Group G Streptococcus bacteremia # Left heel ulcer with cellulitis # Sepsis, resolved #Leukocytosis, resolved #Acute hypoxic respiratory failure, resolved #DENNIS on CKD #Bilateral TKA # BL knee pain L>R Recommendations: Continue ceftriaxone 2 g IV daily, If no signs of knee involvement on imaging, then bacteremia likely from Cellulitis with heel ulcer and can complete 14 total days of therapy with Cefpodoxime 400 mg po DAILY( est cr 20.9, cr 1.98 - 10/02).from sterile BC. EOT 10/13. Check BL knee x-ray to eval for knee effusions,possible hardware involvement Follow-up repeat blood cultures 09/30 D/w hospitalist ID will continue to follow Mariely Moscoso MD, MPH Infectious Disease [facility] Call [phone] with questions. Admission and Anticipated Discharge Date Admission Date: September 28, 2023 Subjective Subsequent visit was provided via telemedicine using two-way real-time interactive telecommunication between the patient and the telemedicine provider. For the duration of the visit, the provider was performing the assessment from a different facility than the patient. This includesuse of bluetooth stethoscope forauscultationperformed by the telepresenter that the telemedicine provider can hear if described in the physical exam. Hand Therapist contact information: Please call [facility] Center [phone]. (Phone Number For Physician Use Only) After establishing a telemedicine visit, patient was: Patient was verified with two unique identifiers Time Spent with Patient: Subsequent => 25 min afebrile Leukocytosis resolved- wbc 9.24 CR 1.98 Physical Exam Physical Exam: Gen- NAD, On RA Neck- supple HEENT- anicteric sclera, fair dentition Lungs- No increased work of breathing Abd- soft, not tender, not distended - chong in place. No suprapubic or CVA tenderness Ext- BL LE 1+ pitting edema L>R, Left>>Rigthe knee tenderness. Left heel ulcer -dressing removed, noted serosang dried drainage on dressing, less eileen wound redness + neuropathy. Skin- See ext exam. Left heel ulcer Neuro-Awake, alert, oriented *3 Psych- Normal mood cooperative Results & Data Vital Signs (Past 12 Hours) Vital Signs Temp Pulse Pulse Resp BP BP Pulse Ox 10/03/23 07:53 74 10/03/23 07:37 36.7 C 77 17 176/77 H 98 10/03/23 03:02 36.6 C 71 18 162/66 H 95 10/02/23 22:56 36.4 C L 80 18 170/72 H 94 10/02/23 22:53 86 O2 Del Method 10/03/23 07:53 10/03/23 07:37 Room Air 10/03/23 03:02 Room Air 10/02/23 22:56 Room Air 10/02/23 22:53 Laboratory Results Short CBC 10/03/23 Range/Units 05:57 WBC 9.24 (4.8-10.8) K/ul Hgb 8.3 L (12.0-16.0) g/dl Hct 26.0 L (37.0-47.0) % Plt Count 226 (130-400) K/uL BMP 10/03/23 10/03/23 05:57 07:49 Sodium TNP 141 Potassium TNP 3.5 Chloride 106 Carbon Dioxide 26 BUN 47 H Creatinine 1.98 H Glucose 76 Calcium 8.3 L Diagnostic Findings Chest X-Ray 10/01/23 11:18 XR chest 1V portable CLINICAL HISTORY: Edema. COMPARISON STUDY: Chest radiograph September 28, 2023. 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 Cardiomegaly is again noted. Mediastinal contours are stable. There is no pneumothorax. Small bilateral pleural effusions are present. Interstitial and alveolar edema persists although has improved since prior exam. IMPRESSION: 1. Persistent but improved interstitial and alveolar pulmonary edema. 2. Small bilateral pleural effusions. ACT 112: Negative or not required by law. Electronically signed by: Shivam Ward M.D. 10/01/2023 12:05 PM Microbiology 10/01/23 07:11 Blood Aerobic Blood Culture - Preliminary No growth in Aerobic bottle after 48 hours. 10/01/23 07:11 Blood Anaerobic Blood Culture - Final 10/01/23 07:05 Blood Aerobic Blood Culture - Preliminary No growth in Aerobic bottle after 48 hours. 10/01/23 07:05 Blood Anaerobic Blood Culture - Preliminary No growth in Anaerobic bottle after 48 hours. 09/28/23 19:40 Blood Aerobic Blood Culture - Final Group G Beta Strep 09/28/23 19:40 Blood Anaerobic Blood Culture - Final Group G Beta Strep 09/28/23 19:05 Blood Aerobic Blood Culture - Final Group G Beta Strep 09/28/23 19:05 Blood Anaerobic Blood Culture - Final Group G Beta Strep Medications Administered Home Medications Medication Instructions Recorded Confirmed Last Taken acetaminophen 325 mg tablet 650 mg PO Q6 PRN Fever Or Pain 09/28/23 09/28/23 Unknown (Tylenol) brimonidine 0.2 %-timolol 0.5 % 1 drp OPB BID 09/28/23 09/28/23 Unknown eye drops bumetanide 2 mg tablet 2 mg PO QAM 09/28/23 09/28/23 Unknown calcium carbonate 1,000 mg PO .Q2HR PRN .gerd 09/28/23 09/28/23 Unknown carboxymethylcellulose sodium 1 % 1 drp OPL Q6 PRN Dry Eyes 09/28/23 09/28/23 Unknown eye drops (Artificial Tears (carboxymethylcellulose)) carvedilol 12.5 mg tablet 12.5 mg PO AMHS 09/28/23 09/28/23 Unknown colestipol 1 gram tablet 2 g PO AMHS 09/28/23 09/28/23 Unknown diclofenac sodium 1 % topical gel 2 g topical QID 09/28/23 09/28/23 Unknown famotidine 10 mg tablet 10 mg PO HS 09/28/23 09/28/23 Unknown gabapentin 300 mg capsule 300 mg PO TID 09/28/23 09/28/23 Unknown hydralazine 50 mg tablet 75 mg PO QID 09/28/23 09/28/23 Unknown levothyroxine 75 mcg tablet 75 mcg PO QAM 09/28/23 09/28/23 Unknown loratadine 5 mg-pseudoephedrine ER 1 tab PO Q12H 09/28/23 09/28/23 Unknown 120 mg tablet,extended release,12hr (Claritin-D 12 Hour) losartan 100 mg tablet 100 mg PO QAM 09/28/23 09/28/23 Unknown magnesium oxide 500 mg PO DAILY 09/28/23 09/28/23 Unknown ondansetron HCl 4 mg tablet 4 mg PO Q6H PRN Nausea 09/28/23 09/28/23 Unknown oxycodone 5 mg tablet 5 mg PO Q6 PRN .Pain 5-8 09/28/23 09/28/23 09/25/23 oxycodone 5 mg tablet 10 mg PO Q6 PRN .Pain 9-10 09/28/23 09/28/23 09/28/23 08:35 pantoprazole 40 mg tablet,delayed 40 mg PO DAILY 09/28/23 09/28/23 Unknown release polyethylene glycol 3350 17 gram 17 g PO DAILY 09/28/23 09/28/23 Unknown oral powder packet (Miralax) polysaccharide iron complex 150 mg 150 mg PO DAILY 09/28/23 09/28/23 Unknown iron capsule (Ferrex) potassium chloride 20 mEq 20 meq PO QAM 09/28/23 09/28/23 Unknown tablet,extended release(part/cryst) prednisone 5 mg tablet 5 mg PO DAILY 09/28/23 09/28/23 Unknown promethazine 25 mg/mL injection 25 mg IM Q6H PRN Nausea 09/28/23 09/28/23 Unknown solution (Phenergan) rivaroxaban 20 mg tablet (Xarelto) 20 mg PO QAM 09/28/23 09/28/23 09/28/23 ropinirole 2 mg tablet 2 mg PO HS 09/28/23 09/28/23 Unknown tizanidine 4 mg tablet 4 mg PO HS 09/28/23 09/28/23 Unknown travoprost 0.004 % eye drops 2 drp OPB QPM 09/28/23 09/28/23 Unknown venlafaxine 75 mg capsule,extended 75 mg PO QAM 09/28/23 09/28/23 Unknown release 24 hr (Effexor XR) venlafaxine 75 mg capsule,extended 150 mg PO .QAM UD 09/28/23 09/28/23 Unknown release 24 hr (Effexor XR) Active Medications Generic Name Dose Route Start Last Admin Trade Name Freq PRN Reason Stop Dose Admin Acetaminophen 1,000 mg 09/29/23 16:26 09/29/23 17:39 Acetaminophen 500 Mg Tab PO 10/29/23 16:25 1,000 mg Q8H PRN Administration Pain or Fever Bumetanide 2 mg 10/01/23 09:00 10/03/23 08:47 Bumetanide 1 Mg Tab PO 10/31/23 08:59 2 mg QAM AMARI Administration Carvedilol 12.5 mg 09/30/23 21:00 10/03/23 08:46 Carvedilol 12.5 Mg Tab PO 10/30/23 20:59 12.5 mg AMHS AMARI Administration Hydralazine HCl 75 mg 09/30/23 21:00 10/03/23 08:46 Hydralazine Tab 50 Mg Tab PO 10/30/23 20:59 75 mg QID AMARI Administration Ceftriaxone Sodium 2,000 mg in 50 mls @ 100 mls/hr 10/01/23 17:00 10/02/23 19:44 Rocephin IV 10/15/23 16:59 Infused Q24H AMARI Infusion Levothyroxine Sodium 75 mcg 10/01/23 09:00 10/03/23 06:22 Levothyroxine Sodium 75 Mcg Tablet PO 10/31/23 08:59 75 mcg DAILYBB AMARI Administration Losartan Potassium 100 mg 10/01/23 09:00 10/03/23 08:47 Losartan Potassium 50 Mg Tab PO 10/31/23 08:59 100 mg QAM AMARI Administration Oxycodone HCl 5 mg 10/01/23 08:15 10/02/23 22:15 Oxycodone Hcl Ir 5 Mg Tab (Immediate Release) PO 10/15/23 08:14 5 mg Q6H PRN Administration Pain Pantoprazole Sodium 40 mg 10/01/23 09:00 10/03/23 08:46 Pantoprazole 40 Mg Tab PO 10/31/23 08:59 40 mg QAM AMARI Administration Prednisone 10 mg 10/01/23 09:00 10/03/23 08:47 Prednisone 10 Mg Tablet PO 10/31/23 08:59 10 mg DAILY AMAIR Administration Rivaroxaban 20 mg 10/01/23 09:00 10/03/23 08:46 Rivaroxaban 20 Mg Tab PO 10/31/23 08:59 20 mg DAILY AMARI Administration Zolpidem Tartrate 5 mg 10/01/23 21:00 10/02/23 21:17 Zolpidem Tartrate 5 Mg Tab PO 10/31/23 20:59 5 mg HS AMARI Administration
[2023-10-03] MEDS: IRON SUCROSE 200 MG in 0.9 % SODIUM CHLORIDE 100 ML IV ONE (12:46)
--- NOTE | 2023-10-03 13:27 | XRay Report ---
XR knee RT 3V CLINICAL HISTORY: Right knee pain. COMPARISON STUDY: Right knee 12/07/2017. FINDINGS: No fracture or dislocation within the right knee. There is a right total knee arthroplasty. The hardware is intact. No abnormal periprosthetic lucency. Vascular calcifications are noted. No kn ee effusion. Soft tissues are unremarkable. IMPRESSION: 1. Right total knee arthroplasty. No evidence for hardware complication. 2. No fracture or dislocation within the right knee. ACT 112: Negative or not required by law. Electronically signed by: Guzman Sparks M.D. 10/03/2023 1:25 PM
--- NOTE | 2023-10-03 13:32 | XRay Report ---
XR knee LT 3V HISTORY: 82 years-old Female pain left knee arthroplasty COMPARISON: 12/20/2022 TECHNIQUE: 3 views of the left knee FINDINGS: Total joint arthroplasty with patellar resurfacing. Generalized appearance of the bones. Arterial jaiden cifications. There is no acute fracture or dislocation identified. There is an 11 mm peripherally cor ticated bony defects noted along the lower aspect of the mid to superior patella. This is likely repairer resistance welding machines dana. IMPRESSION: No acute fracture or dislocation. ACT 112: Negative or not required by law. The above report was generated using voice recognition software. It may contain grammatical, syntax o r spelling errors. Electronically signed by: Nic Winters M.D. 10/03/2023 1:30 PM
--- NOTE | 2023-10-03 13:56 | Discharge Summary ---
Date of Service October 03, 2023 Admission HPI Per Admitting Provider The patient is a 82-year-old female with a past medical history including DVT right lower extremity, generalized weakness, non-STEMI, lower extremity edema, history of DENNIS superimposed on CKD, history of UTI, aspiration pneumonia, hypertensive urgency, lumbar spinal stenosis, hypothyroidism, depression, neuropathy and restless leg syndrome. EMS was called to see the patient due to report of acute shortness of breath, the patient was found to be 70% on room air, and vomited en route to the hospital. The patient himself is unable to contribute to HPI due to altered mental state, but she was noted to be DNR/DNI Principal Diagnosis Septic shock, streptococcal bacteremia, acute on chronic kidney disease, left heel ulceration and cellulitis, acute hypoxic respiratory failure, demand ischemia Discharge Exam General-alert and oriented x3, no fever, no chills HEENT-head atraumatic and normocephalic, pupils equal and reactive to light, extraocular muscles intact Neck-no lymphadenopathy or thyromegaly, trachea midline Chest-clear to auscultation. No rales, wheezing or rhonchi Cardiac-regular rate and rhythm, normal S1 and S2 Abdomen-normal bowel sounds, no hepatosplenomegaly Extremities-no cyanosis, clubbing, or edema Neuro-cranial nerves II through XII intact, motor and sensory function within normal limits, strength symmetrical, no focal deficits Psych-normal affect, normal mood Discharge Data Allergies Allergy/AdvReac Type Severity Reaction Status Date / Time aspirin Allergy Severe ANAPHYLAXIS Verified 09/28/23 21:12 duloxetine [From Cymbalta] Allergy Intermediate Rash Verified 09/28/23 21:12 NSAIDS (Non-Steroidal Allergy Unknown Verified 09/28/23 21:12 Anti-Inflamma lisinopril AdvReac Intermediate Cough Verified 09/28/23 21:12 Consultations 09/28/23 19:33 ED Decision to Admit Stat 10/01/23 08:17 Consult Infectious Diseases Routine Ordered Studies 09/28/23 20:13 US venous doppler LE LT Stat Hospital Course (1) Sepsis due to pneumonia: Present on admission. Now resolved. Treated while hospitalized with intravenous antibiotics for strep bacteremia and pneumonia. Associated with septic shock on admission. Status post pressor therapy. (2) Steroid dependence: Intravenous hydrocortisone switch back to oral prednisone therapy on September 30 (3) Streptococcal bacteremia: Appreciate infectious disease consultation recommendations. She was treated with intravenous antibiotics while hospitalized. She will continue with cefpodoxime 400 mg daily through October 13. Zyvox was switched to Rocephin on September 30. Repeat blood cultures obtained on September 30 are negative. (4) Elevated troponin: Mild on admission. No acute EKG changes. No evidence of acute coronary syndrome. Appears to be due to demand ischemia related to septic shock present on admission (5) Lower extremity ulceration: Involvement of the left heel with associated cellulitis. Treated while hospitalized with intravenous antibiotics. She will continue with oral cefpodoxime at discharge. (6) DVT (deep venous thrombosis): Right lower extremity DVT history. Doppler evaluation negative on admission. Xarelto restarted on September 30 (7) CKD (chronic kidney disease), stage III: Acute kidney injury superimposed on CKD, stage III. Now back to baseline. Monitor intake and output. Serial labs (8) Metabolic encephalopathy: Present on admission. Now resolved (9) Insomnia: Responsive to Ambien at bedtime (10) Essential hypertension: Improved after addition of amlodipine Plan Discharged to [facility] today, October 02 Total Time Total Time Spent Total Time Spent (In Minutes): 50 minutes Discharge Plan Discharge Items Patient Disposition: Transfer [facility] Living Fac Reason For Visit: ACUTE RESP FAILURE WITH HYPOXIA, ASPIRATION PNEUMO Discharge Diagnosis: Septic shock, streptococcal bacteremia, acute on chronic kidney disease, demand ischemia, hypertension, acute hypoxic respiratory failure, left heel ulceration which is chronic associated with cellulitis Activity: Resume your previous activity Non-emergency contact: Primary Care Provider Call non-emergency contact if: your symptoms worsen Follow-up/Referrals: Girish Bauer III, MD [Primary Care Provider] - Diet: Regular and Heart Healthy Addtl Attending Provider Instructions: Take oral antibiotic, cefpodoxime, daily through October 13. Use Ambien at bedtime to help with sleep if needed Pending Studies at Discharge: No Stand-Alone Forms: My [facility] Skilled Items Patient informed of condition?: Yes DNR: Yes Discharge Level of Care: Skilled Communicable Disease: No Discharge Prognosis: Stable Lines: None Urinary Catheter: No Medications and DC Order Prescriptions: New amlodipine 10 mg tablet 10 mg PO DAILY Qty: 10 0RF zolpidem 5 mg Tablet 5 mg PO HS PRN (Reason: Sleep) Qty: 10 0RF cefpodoxime 200 mg tablet 200 mg PO BID Qty: 30 0RF Rx Instructions: must administer with a meal/food Continued acetaminophen [Tylenol] 325 mg Tablet 650 mg PO Q6 PRN (Reason: Fever Or Pain) venlafaxine [Effexor XR] 75 mg Capsule,Extended Release 24hr 75 mg PO QAM Rx Instructions: For 2 weeks, end on 10/05/23 venlafaxine [Effexor XR] 75 mg Capsule,Extended Release 24hr 150 mg PO .QAM UD Rx Instructions: START 10/06/23 carvedilol 12.5 mg tablet 12.5 mg PO AMHS bumetanide 2 mg tablet 2 mg PO QAM famotidine 10 mg Tablet 10 mg PO HS polyethylene glycol 3350 [Miralax] 17 gram Powder In Packet 17 g PO DAILY tizanidine 4 mg tablet 4 mg PO HS polysaccharide iron complex [Ferrex 150] 150 mg iron Capsule 150 mg PO DAILY ondansetron HCl [Zofran] 4 mg Tablet 4 mg PO Q6H PRN (Reason: Nausea) prednisone 5 mg tablet 5 mg PO DAILY travoprost 0.004 % drops 2 drp OPB QPM levothyroxine 75 mcg tablet 75 mcg PO QAM potassium chloride 20 mEq tablet,ER particles/crystals 20 meq PO QAM ropinirole 2 mg tablet 2 mg PO HS pantoprazole 40 mg tablet,delayed release (DR/EC) 40 mg PO DAILY promethazine [Phenergan] 25 mg/mL Solution 25 mg IM Q6H PRN (Reason: Nausea) Claritin-D 12 Hour 5-120 mg Tablet Extended Release 12 Hr 1 tab PO Q12H magnesium oxide 500 mg magnesium Tablet 500 mg PO DAILY gabapentin 300 mg capsule 300 mg PO TID calcium carbonate [Tums 500] 500 mg calcium (1,250 mg) Tablet,Chewable 1,000 mg PO .Q2HR PRN (Reason: .gerd) hydralazine 50 mg Tablet 75 mg PO QID Rx Instructions: Hold for sbp <100. losartan 100 mg tablet 100 mg PO QAM colestipol 1 gram tablet 2 g PO AMHS oxycodone 5 mg tablet 5 mg PO Q6 PRN (Reason: .Pain 5-8) oxycodone 5 mg tablet 10 mg PO Q6 PRN (Reason: .Pain 9-10) brimonidine-timolol 0.2-0.5 % drops 1 drp OPB BID diclofenac sodium [Voltaren] 1 % Gel 2 g TOPICAL QID Rx Instructions: Apply to left hip/left knee, bi-lat feet Xarelto 20 mg tablet 20 mg PO QAM Artificial Tears (cmc) 1 % Drops 1 drp OPL Q6 PRN (Reason: Dry Eyes) Discharge Orders: Discharge Order (Routine); Ordered 10/03/23 Ordered By: Chidi Bernal Admission Data Admit Date/Time: 09/28/23 21:13 Attending Provider: Chidi Bernal Admit Provider: Tobin Horn Primary Care Provider: Girish Bauer III Other Providers: Tobin Horn; [place]; Latrice Zimmer; Juliana Fitzgerald; Carlee James; Mariely Moscoso; Breanna Walsh; Angie Naik Coding Level of Care Code 96102 INP/OBS DISCH >30 MIN Diagnoses Sepsis due to pneumonia J18.9; A41.9 Steroid dependence F19.20 Streptococcal bacteremia R78.81; B95.5 Elevated troponin R77.8 Lower extremity ulceration L97.909 DVT (deep venous thrombosis) I82.409 CKD (chronic kidney disease), stage III N18.31 Chronic kidney disease stage 3 subtype: stage 3a (GFR 45-59) Metabolic encephalopathy G93.41 Insomnia G47.00 Essential hypertension I10
[2023-10-04] MEDS ORDERED: amLODIPine BESYLATE 5 MG TAB PO SCH (09:00)
== END 2023-10-03 17:01 | DRG 871 ==
LOC: ED 18:54 → SUATTDRO 21:13 → 1E 21:13 → 2S 09-29 18:49

== ENCOUNTER 2023-10-23 11:06 | Inpatient (IN) ==
--- NOTE | 2023-10-23 11:24 | Emergency Department Note ---
Impression & Plan Pneumonia Admission ED Provider Note HPI: History obtained from patient. The patient is a 82-year-old female with history of chronic kidney disease, hypertension, major depressive disorder, presents the emergency department from her nursing facility ([facility]) over concern for vomiting and increasing lethargy over the past 2 days. History is obtained via bedside RN via EMS report. Patient is able to answer some of my questions appropriately on arrival and she is able to follow commands but otherwise she is very listless appearing and does not provide much history. Patient denies any abdominal pain, denies any chest pain. On arrival here to the ED the patient is hypoxic at 87% on room air and therefore was placed on nasal cannula oxygen with good improvement, otherwise hemodynamically stable, she does not appear to be in any acute physical distress but she is overall listless appearing. ROS: - Per HPI Differential Diagnosis: Viral gastroenteritis, small bowel obstruction, diabetic ketoacidosis, pneumonia, viral upper respiratory infection/COVID-19, sepsis, urinary tract infection, pyelonephritis, amongst other potential pathologies. *Outpatient medications and allergy history reviewed. PE: General: Alert, frail-appearing and listless HEENT: Normocephalic, trachea midline, mucous membranes are dry Eyes: Extraocular eye movement is intact, no scleral erythema Pulmonary: Clear to auscultation bilaterally, no wheezing Cardio: Regular rate and rhythm GI: Abdomen is soft to palpation, mild distention with mild tenderness diffusely to palpation : No suprapubic tenderness MSK: No evidence of trauma or malformation of the extremities, no edema Skin: No evidence of rash Neuro: Alert, no focal deficits Psychiatric: Cooperative INDEPENDENT INTERPRETATIONS: cardiac monitor technician: (As interpreted by myself): - An order was placed for continuous cardiac monitoring - Patient was noted to be in sinus rhythm with a rate of 105 EKG: (As interpreted by myself): Rate: 95 Rhythm: Normal sinus rhythm Intervals: Within normal limits ST changes: No ST elevation Time: 11:15 Chest x-ray: (As interpreted by myself): Mild pulmonary edema pattern Interventions provided in ED: -IV fluid bolus, IV cefepime, IV azithromycin Medical Decision Making: IV was established and lab work obtained, patient was placed on manager cardiac cath. Lab work shows a leukocytosis of 15.6, hemoglobin is stable at 8.8 which is near the patient's baseline, platelet count is normal, CMP does not show any evidence of any critical findings, there is baseline chronic kidney disease with creatinine of 2.4, BUN of 54, lactic acid is elevated at 2.4. High-sensitivity troponin is elevated at 46.2 which is near the patient's baseline. EKG per my interpretation does not show any evidence of any acute ischemic changes. There is no significant transaminitis, bilirubin is 1.2, lipase is low, viral panel testing was obtained and is negative. CT imaging of the head does not show any evidence of any acute intracranial process. CT imaging of the abdomen pelvis was obtained that does not show any evidence of bowel obstruction, there is evidence of pneumonia on CT imaging of the abdomen and pelvis in the visualized lower lungs. Repeat lactic acid up trended slightly to 2.5, patient was given additional IV fluids after this. She remains hemodynamically stable on my reassessment, she was hypoxic on arrival and was placed on nasal cannula oxygen and remained stable on 2 L nasal cannula oxygen prior to admission. I did discuss the patient's presentation with the on-call hospitalist, Dr. Osei, and the patient was placed for admission in stable condition. Consultants/Discussions held with other healthcare providers: -Hospitalist, Dr. Osei * CRITICAL CARE TIME: ( 45 ) minutes -Stabilization of patient with presenting hypoxia at 87% on room air requiring supplemental oxygen for correction, time spent at the bedside, interpretation of diagnostic studies, administration of IV fluids and broad-spectrum antibiotics for patient with vital signs concerning for systemic infection ultimately found to be secondary to pneumonia, discussion with other physicians and arrangement of admission. Diagnosis: 1. Hypoxia, acute 2. Pneumonia, acute, bilateral lower lungs 3. Leukocytosis, acute 4. Chronic kidney disease 5. Elevated high-sensitivity troponin level 6. Elevated BUN, acute 7. Anemia, chronic 8. Lactic acidosis, acute Disposition: Admission Enoch Alvarez DO Emergency Medicine Past Med/Surg History Problem List (Updated 10/23/23 @ 16:22 by Aftab Osei, PhD, DO) Pneumonia Essential hypertension Insomnia Metabolic encephalopathy Streptococcal bacteremia Lower extremity ulceration Acute respiratory failure with hypoxia Sepsis (Acute) Hypoxia (Acute) Respiratory failure (Acute) Degenerative spondylolisthesis Scoliosis of lumbar region due to degenerative disease of spine in adult Painful orthopaedic hardware Encounter for pre-operative examination Occult blood positive stool Anemia Generalized weakness (Acute) Bilateral edema of lower extremity (Acute) Acute kidney injury superimposed on chronic kidney disease (Acute) Acute UTI (urinary tract infection) (Acute) Greater trochanteric bursitis of left hip Bilateral leg edema Acute hypoxemic respiratory failure Community acquired pneumonia Hypoxia (Acute) Elevated troponin (Acute) Weakness (Acute) Gastroenteritis (Acute) Hypertensive urgency Elevated troponin (Acute) Lumbar spinal stenosis Severe at L2-S1 DVT prophylaxis Acute kidney injury superimposed on CKD Weakness (Acute) Fatigue (Acute) HTN (hypertension) (Chronic) Spinal stenosis, lumbar region with neurogenic claudication Hypothyroidism Depression Neuropathy (Chronic) FEET Osteoarthritis (Chronic) Restless leg syndrome (Chronic) Glaucoma (Chronic) Medical History Steroid dependence DVT (deep venous thrombosis) Non-ST elevation [place] (NSTEMI) CKD (chronic kidney disease), stage III detention resident resident of [facility] Low hemoglobin and low hematocrit Dysphagia Gait abnormality Weakness Low back pain Personal history of venous thrombosis and embolism Other intestinal Escherichia coli infections Cognitive communication deficit Adult failure to thrive Herniated lumbar disc without myelopathy Left central disc herniation at L5-S1 Lumbar radiculopathy High cholesterol Anxiety Rheumatoid arthritis FOLLOWS DR. TREVINO Hypertension Surgical History History of total bilateral knee replacement (TKR) History of carpal tunnel release RIGHT HAND Hx of arthroscopy RIGHT KNEE (MENISCUS) Hx of tonsillectomy Hx of hysterectomy Hx laparoscopic cholecystectomy Family History Mother Family history of reaction to anesthesia SLOW TO AWAKEN Social History Smoking Status: Never smoker Second Hand Exposure: No; Do You Dip or Chew Tobacco: No; Hx Alcohol Use: No Hx Substance Use: No Preferred Language: Syriac Communication Ability: Impaired Visual Impairment: No Limitations Fine Arts Model Required: No Beliefs That Will Affect Care: Taoist marital status: Single Current Living Situation: [facility] Current Living Situation Comment: pt is resident at [facility] How many Children do You have: 0 Feels Safe at Home: Yes Assistive Devices: Wheelchair Allergies Allergies Allergy/AdvReac Type Severity Reaction Status Date / Time aspirin Allergy Severe ANAPHYLAXIS Verified 10/23/23 14:31 duloxetine [From Cymbalta] Allergy Intermediate Rash Verified 10/23/23 14:31 NSAIDS (Non-Steroidal Allergy Unknown Verified 10/23/23 14:32 Anti-Inflamma lisinopril AdvReac Intermediate Cough Verified 10/23/23 14:31 Home Meds Home Medications Medication Instructions Recorded Confirmed acetaminophen 325 mg tablet 650 mg PO Q6 PRN Fever Or Pain 09/28/23 10/23/23 (Tylenol) brimonidine 0.2 %-timolol 0.5 % 1 drp OPB BID 09/28/23 10/23/23 eye drops bumetanide 2 mg tablet 2 mg PO QAM 09/28/23 10/23/23 calcium carbonate 1,000 mg PO Q2H PRN GERD 09/28/23 10/23/23 carboxymethylcellulose sodium 1 % 1 drp OPL Q6H PRN Dry Eyes 09/28/23 10/23/23 eye drops (Artificial Tears (carboxymethylcellulose)) colestipol 1 gram tablet 2 g PO AMHS 09/28/23 10/23/23 diclofenac sodium 1 % topical gel 2 g topical QID 09/28/23 10/23/23 famotidine 10 mg tablet 10 mg PO HS 09/28/23 10/23/23 hydralazine 50 mg tablet 75 mg PO TID 09/28/23 10/23/23 levothyroxine 75 mcg tablet 75 mcg PO QAM 09/28/23 10/23/23 loratadine 5 mg-pseudoephedrine ER 1 tab PO Q12H 09/28/23 10/23/23 120 mg tablet,extended release,12hr (Claritin-D 12 Hour) losartan 100 mg tablet 100 mg PO QAM 09/28/23 10/23/23 magnesium oxide 500 mg PO DAILY 09/28/23 10/23/23 ondansetron HCl 4 mg tablet 4 mg PO Q6H PRN Nausea 09/28/23 10/23/23 oxycodone 5 mg tablet 5 mg PO Q6H PRN Pain 5-8 09/28/23 10/23/23 oxycodone 5 mg tablet 10 mg PO Q6H PRN Pain 9-10 09/28/23 10/23/23 pantoprazole 40 mg tablet,delayed 40 mg PO DAILY 09/28/23 10/23/23 release polysaccharide iron complex 150 mg 150 mg PO DAILY 09/28/23 10/23/23 iron capsule (Ferrex) prednisone 5 mg tablet 5 mg PO DAILY 09/28/23 10/23/23 rivaroxaban 20 mg tablet (Xarelto) 20 mg PO QAM 09/28/23 10/23/23 ropinirole 2 mg tablet 2 mg PO HS 09/28/23 10/23/23 tizanidine 4 mg tablet 4 mg PO HS 09/28/23 10/23/23 travoprost 0.004 % eye drops 2 drp OPB QPM 09/28/23 10/23/23 carvedilol 6.25 mg tablet 6.25 mg PO BID 10/23/23 10/23/23 escitalopram oxalate 20 mg tablet 20 mg PO DAILY 10/23/23 10/23/23 gabapentin 300 mg capsule 300 mg PO TID 10/23/23 10/23/23 menthol 0.44 %-zinc oxide 20.6 % 1 applic topical QID 10/23/23 10/23/23 topical ointment (Calmoseptine) venlafaxine 150 mg 150 mg PO QAM 10/23/23 10/23/23 capsule,extended release 24 hr Previous Rx's Medication Instructions Recorded amlodipine 10 mg tablet 10 mg PO DAILY #10 tabs 10/03/23 cefpodoxime 200 mg tablet 200 mg PO BID #30 tabs 10/03/23 zolpidem 5 mg tablet 5 mg PO HS PRN Sleep #10 tabs 10/03/23 Results & Data (ED) Vital Signs Vital Signs - 24 hr 10/23/23 11:11 10/23/23 11:19 10/23/23 11:21 Temperature 37.8 C H Temperature Source Oral Pulse Rate 97 H 95 H 95 H Pulse Rate from SpO2 Sensor 95 H Respiratory Rate 18 23 Blood Pressure 129/70 Blood Pressure Mean 89 Pulse Oximetry 87 L 95 Oxygen Delivery Method Room Air Oxygen Flow Rate Sepsis Recent Fever Within 48 Hours Yes Sepsis New/Unexplained Change in Mental Status No Sepsis Action Taken by Nursing No Action Required Oxygen Flow Rate - Titration Pulse Oximetry Post Tiitration 10/23/23 11:36 10/23/23 11:40 10/23/23 11:42 Temperature Temperature Source Pulse Rate 92 H Pulse Rate from SpO2 Sensor 93 H Respiratory Rate 23 Blood Pressure 122/59 L Blood Pressure Mean 100 Pulse Oximetry 97 98 Oxygen Delivery Method Nasal Cannula Oxygen Flow Rate 2 Sepsis Recent Fever Within 48 Hours Sepsis New/Unexplained Change in Mental Status Sepsis Action Taken by Nursing Oxygen Flow Rate - Titration Pulse Oximetry Post Tiitration 10/23/23 11:48 10/23/23 12:01 10/23/23 12:30 Temperature Temperature Source Pulse Rate 92 H 105 H Pulse Rate from SpO2 Sensor 105 H Respiratory Rate 19 20 Blood Pressure 116/78 Blood Pressure Mean 85 Pulse Oximetry 94 Oxygen Delivery Method Oxygen Flow Rate 2 Sepsis Recent Fever Within 48 Hours Sepsis New/Unexplained Change in Mental Status Sepsis Action Taken by Nursing Oxygen Flow Rate - Titration Pulse Oximetry Post Tiitration 10/23/23 12:30 10/23/23 12:30 10/23/23 13:00 Temperature Temperature Source Pulse Rate 105 H Pulse Rate from SpO2 Sensor 105 H Respiratory Rate 20 Blood Pressure 112/63 112/63 Blood Pressure Mean 80 80 Pulse Oximetry 92 Oxygen Delivery Method Oxygen Flow Rate 2 Sepsis Recent Fever Within 48 Hours Sepsis New/Unexplained Change in Mental Status Sepsis Action Taken by Nursing Oxygen Flow Rate - Titration Pulse Oximetry Post Tiitration 10/23/23 13:00 10/23/23 13:00 10/23/23 13:00 Temperature Temperature Source Pulse Rate Pulse Rate from SpO2 Sensor Respiratory Rate Blood Pressure 105/74 105/74 105/74 Blood Pressure Mean 79 79 79 Pulse Oximetry Oxygen Delivery Method Oxygen Flow Rate Sepsis Recent Fever Within 48 Hours Sepsis New/Unexplained Change in Mental Status Sepsis Action Taken by Nursing Oxygen Flow Rate - Titration Pulse Oximetry Post Tiitration 10/23/23 13:00 10/23/23 13:00 10/23/23 13:00 Temperature Temperature Source Pulse Rate Pulse Rate from SpO2 Sensor Respiratory Rate Blood Pressure 105/74 105/74 105/74 Blood Pressure Mean 79 79 79 Pulse Oximetry Oxygen Delivery Method Oxygen Flow Rate Sepsis Recent Fever Within 48 Hours Sepsis New/Unexplained Change in Mental Status Sepsis Action Taken by Nursing Oxygen Flow Rate - Titration Pulse Oximetry Post Tiitration 10/23/23 13:33 10/23/23 13:33 10/23/23 13:33 Temperature Temperature Source Pulse Rate 102 H Pulse Rate from SpO2 Sensor 102 H Respiratory Rate 20 Blood Pressure 138/67 138/67 Blood Pressure Mean 93 93 Pulse Oximetry 92 Oxygen Delivery Method Oxygen Flow Rate 2 Sepsis Recent Fever Within 48 Hours Sepsis New/Unexplained Change in Mental Status Sepsis Action Taken by Nursing Oxygen Flow Rate - Titration Pulse Oximetry Post Tiitration 10/23/23 13:33 10/23/23 13:57 10/23/23 14:00 Temperature Temperature Source Pulse Rate 103 H Pulse Rate from SpO2 Sensor 103 H Respiratory Rate 20 Blood Pressure 138/67 141/96 H Blood Pressure Mean 93 99 Pulse Oximetry 91 Oxygen Delivery Method Oxygen Flow Rate 3 Sepsis Recent Fever Within 48 Hours Sepsis New/Unexplained Change in Mental Status Sepsis Action Taken by Nursing Oxygen Flow Rate - Titration Pulse Oximetry Post Tiitration 10/23/23 14:00 10/23/23 14:06 10/23/23 14:24 Temperature Temperature Source Pulse Rate 106 H 105 H Pulse Rate from SpO2 Sensor 106 H 106 H Respiratory Rate 22 20 Blood Pressure 141/96 H Blood Pressure Mean 99 Pulse Oximetry 92 92 Oxygen Delivery Method Oxygen Flow Rate 3 3 Sepsis Recent Fever Within 48 Hours Sepsis New/Unexplained Change in Mental Status Sepsis Action Taken by Nursing Oxygen Flow Rate - Titration Pulse Oximetry Post Tiitration 10/23/23 14:30 10/23/23 14:30 10/23/23 14:39 Temperature Temperature Source Pulse Rate 106 H Pulse Rate from SpO2 Sensor 106 H Respiratory Rate 20 Blood Pressure 163/81 H 163/81 H Blood Pressure Mean 90 90 Pulse Oximetry 92 Oxygen Delivery Method Oxygen Flow Rate 3 Sepsis Recent Fever Within 48 Hours Sepsis New/Unexplained Change in Mental Status Sepsis Action Taken by Nursing Oxygen Flow Rate - Titration Pulse Oximetry Post Tiitration 10/23/23 14:53 10/23/23 14:53 10/23/23 15:31 Temperature 37.5 C Temperature Source Oral Pulse Rate 102 H Pulse Rate from SpO2 Sensor Respiratory Rate Blood Pressure Blood Pressure Mean Pulse Oximetry 90 Oxygen Delivery Method Nasal Cannula Oxygen Flow Rate 2 Sepsis Recent Fever Within 48 Hours Sepsis New/Unexplained Change in Mental Status Sepsis Action Taken by Nursing Oxygen Flow Rate - Titration 3 Pulse Oximetry Post Tiitration 93 Laboratory Data 10/23/23 11:50 10/23/23 11:50 Lab Results 10/23/23 10/23/23 Range/Units 11:50 14:12 WBC 15.66 H (4.8-10.8) K/ul RBC 2.94 L (4.20-5.40) M/uL Hgb 8.8 L (12.0-16.0) g/dl Hct 28.4 L (37.0-47.0) % MCV 96.6 (80.0-100.0) fL MCH 29.9 (25.0-34.0) pg MCHC 31.0 L (32.0-36.0) g/dL RDW Std Deviation 57.4 H (36.4-46.3) fL RDW Coeff of Mario 16.2 H (11.5-14.5) % Plt Count 188 (130-400) K/uL MPV 9.1 L (9.4-12.4) fL Immature Gran % (Auto) 1.5 % Neut % (Auto) 91.7 % Lymph % (Auto) 2.6 % [place] % (Auto) 3.9 % Eos % (Auto) 0.1 % Baso % (Auto) 0.2 % Neut # (Auto) 14.37 H (1.40-6.50) K/uL Lymph # (Auto) 0.40 L (1.20-3.40) K/uL [place] # (Auto) 0.61 H (0.11-0.59) K/uL Eos # (Auto) 0.01 (0.00-0.50) K/uL Baso # (Auto) 0.03 (0.00-0.20) K/uL Immature Gran # (Auto) 0.24 H (0.01-0.20) K/uL PT 14.6 H (9.0-12.0) Seconds INR 1.4 H (0.9-1.1) Sodium 138 (136-145) mmol/L Potassium 4.5 (3.5-5.1) mmol/L Chloride 103 (98-107) mmol/L Carbon Dioxide 27 (21-32) mmol/L Anion Gap 8 (3-11) BUN 54 H (6-23) mg/dl Creatinine 2.40 H (0.6-1.2) mg/dl Est Cr Clr Drug Dosing 18.6 ml/min Est GFR ( Amer) 21.4 ml/min Est GFR (Non-Af Amer) 18.4 ml/min BUN/Creatinine Ratio 22.5 H (10-20) Glucose 110 H (70-99(Fasting)) mg/dl Lactate 2.4 H* 2.5 H* (0.4-2.0) mmol/L Calcium 8.7 (8.6-10.3) mg/dl Total Bilirubin 1.2 H (0.2-1.0) mg/dl AST 24 (13-39) U/L ALT 15 (7-52) U/L Alkaline Phosphatase 107 H (34-104) U/L Troponin I High Sens 46.2 H (0-14) pg/ml Total Protein 6.3 (6.0-8.3) gm/dl Albumin 3.3 L (3.4-5.0) gm/dl Globulin 3.0 (2.5-4.0) gm/dl Albumin/Globulin Ratio 1.1 (0.9-2) Lipase 7 L (11-82) U/L Adenovirus (PCR) Not Detected (NotDetected) B. pertussis DNA (PCR) Not Detected (NotDetected) B.parapertussis DNA PCR Not Detected (NotDetected) C. pneumoniae DNA (PCR) Not Detected (NotDetected) Coronavirus OC43 (PCR) Not Detected (NotDetected) Coronavirus HKU1 (PCR) Not Detected (NotDetected) Coronavirus 229E (PCR) Not Detected (NotDetected) SARS-CoV-2 (PCR) Not Detected (NotDetected) Coronavirus NL63 (PCR) Not Detected (NotDetected) Human Metapneumovir PCR Not Detected (NotDetected) Influenza Type A (PCR) Not Detected (NotDetected) Influenza Type B (PCR) Not Detected (NotDetected) M. pneumoniae (PCR) Not Detected (NotDetected) Parainfluenza 1 (PCR) Not Detected (NotDetected) Parainfluenza 2 (PCR) Not Detected (NotDetected) Parainfluenza 3 (PCR) Not Detected (NotDetected) Parainfluenza 4 (PCR) Not Detected (NotDetected) RSV (PCR) Not Detected (NotDetected) Entero/Rhino (PCR) Not Detected (NotDetected) Administered Medications Azithromycin 500 mg/ Dextrose 255 mls @ 125 mls/hr IV NOW ONE Stop: 10/23/23 16:37 Last Admin: 10/23/23 15:19 Dose: 125 mls/hr Documented By: JOHN Discontinued Medications Sodium Chloride (Nss) 500 mls @ 999 mls/hr IV .Q31M STA Stop: 10/23/23 11:46 Last Infusion: 10/23/23 12:58 Dose: Infused Documented By: Admin: 10/23/23 11:47 Dose: 999 mls/hr Documented By: TARIK Sodium Chloride (Nss) 1,000 mls @ 999 mls/hr IV .Q1H1M ONE Stop: 10/23/23 12:21 Last Infusion: 10/23/23 13:12 Dose: Infused Documented By: Admin: 10/23/23 11:47 Dose: 999 mls/hr Documented By: TARIK Sodium Chloride (Nss) 1,000 mls @ 999 mls/hr IV .Q1H1M ONE Stop: 10/23/23 15:34 Last Infusion: 10/23/23 15:53 Dose: Infused Documented By: Admin: 10/23/23 14:49 Dose: 999 mls/hr Documented By: TARIK Cefepime HCl (Maxipime) 2,000 mg in 20 mls @ 5 mls/min IV NOW STA; Protocol Stop: 10/23/23 14:37 Last Admin: 10/23/23 15:19 Dose: 5 mls/min Documented By: JOHN Imaging Data Radiologist's Impression: Head CT 10/23/23 11:21 CT head/brain wo con CLINICAL HISTORY: AMS Technique: Contiguous axial CT images of the head were acquired from the base of the skull to the vertex without intravenous contrast administration. Images were viewed in brain, subdural and bone windows. Automated dose lowering techniques and/or adjustment according to patient size were utilized for this exam. Comparison: None available at the time of this dictation. Findings: Areas of decreased attenuation are present in the periventricular and subcortical white matter bilaterally consistent with small vessel ischemic disease. Generalized cerebral atrophy with commensurate enlargement of the ventricles, sulci, and cisterns is also present. There is no acute intracranial hemorrhage or evidence of acute territorial infarction. No shift of the midline structures, mass effect, or extra-axial abnormalities are shown. Atherosclerotic calcifications are present in the intracranial segments of the internal carotid arteries. Imaged portions of the paranasal sinuses and mastoid air cells are clear. The orbits appear normal. There are no acute fractures of the calvaria or scalp swelling. Impression: No acute intracranial hemorrhage, no evidence of acute territorial infarction or other acute intracranial disease process. ACT 112: Negative or not required by law. Electronically signed by: Gui Coy M.D. 10/23/2023 11:40 AM Chest X-Ray 10/23/23 11:44 XR chest 1V portable CLINICAL HISTORY: Hypoxia TECHNIQUE: Single frontal radiograph of the chest was obtained. Comparison: Comparison is made to chest radiograph 10/01/2023 FINDINGS: No lines and tubes are seen. Aortic valvular prosthesis is seen. Prominence and cephalization of the vasculature is seen. No evidence of pleural effusion or pneumothorax. IMPRESSION: Cardiomegaly and mild pulmonary edema. ACT 112: Negative or not required by law. Electronically signed by: Gui Coy M.D. 10/23/2023 12:32 PM Abdomen/Pelvis CT 10/23/23 13:00 CT abd pelvis wo con CLINICAL HISTORY: nausea and vomiting TECHNIQUE: Helical axial images of the abdomen and pelvis were obtained. Automated dose lowering techniques and/or adjustment according to patient size were utilized for this exam. This exam was performed without intravenous contrast. CT DOSE: 1254.29 mGy.cm COMPARISON: Comparison is made to CT abdomen pelvis 06/20/2022 FINDINGS: Lower chest: Consolidation is seen in the visualized lower lungs. Liver: Unremarkable. No focal lesions are seen. Gallbladder and biliary tree: Patient is status post cholecystectomy. No intra- or extrahepatic biliary ductal dilation. Pancreas: Unremarkable, no focal lesions. Spleen: Unremarkable. Adrenals: Unremarkable. Kidneys and ureters: Prominence of the right collecting system is seen. Bladder: Unremarkable. Reproductive organs: Patient is status post hysterectomy. Bowel: Diverticulosis is seen without evidence of diverticulitis. A large hiatal hernia is seen. Patient is status post appendectomy. Lymph nodes Retroperitoneal: Subcentimeter lymph nodes are noted. Pelvic: Unremarkable. Mesenteric: Unremarkable. Peritoneum: Normal. Vessels: Atherosclerotic calcifications are seen. Abdominal wall: Right fat-containing inguinal hernia. Bones: Degenerative changes in the visualized spine. Serpiginous hypodensity in the bilateral hips is nonspecific but can be seen in AVN. IMPRESSION: 1. Pneumonia. 2. Prominence of the right collecting system without obstructive stone, a recently passed stone cannot be excluded. 3. Diverticulosis without diverticulitis. ACT 112: Negative or not required by law. Electronically signed by: Gui Coy M.D. 10/23/2023 2:33 PM Discharge Plan Visit Data Chief Complaint: Vomiting Stated Complaint: VOMITING ED Provider: Enoch Alvarez Discharge Problem: Pneumonia Forms Stand Alone Forms: My [facility] [address] Prescriptions Prescriptions: No Action carvedilol 6.25 mg tablet 6.25 mg PO BID venlafaxine 150 mg Capsule,Extended Release 24hr 150 mg PO QAM gabapentin 300 mg capsule 300 mg PO TID escitalopram oxalate 20 mg tablet 20 mg PO DAILY menthol-zinc oxide [Calmoseptine] 0.44-20.6 % Ointment 1 applic TOPICAL QID Rx Instructions: Apply to buttocks acetaminophen [Tylenol] 325 mg Tablet 650 mg PO Q6 PRN (Reason: Fever Or Pain) bumetanide 2 mg tablet 2 mg PO QAM famotidine 10 mg Tablet 10 mg PO HS tizanidine 4 mg tablet 4 mg PO HS polysaccharide iron complex [Ferrex 150] 150 mg iron Capsule 150 mg PO DAILY ondansetron HCl 4 mg Tablet 4 mg PO Q6H PRN (Reason: Nausea) prednisone 5 mg tablet 5 mg PO DAILY travoprost 0.004 % drops 2 drp OPB QPM levothyroxine 75 mcg tablet 75 mcg PO QAM ropinirole 2 mg tablet 2 mg PO HS pantoprazole 40 mg tablet,delayed release (DR/EC) 40 mg PO DAILY Claritin-D 12 Hour 5-120 mg Tablet Extended Release 12 Hr 1 tab PO Q12H magnesium oxide 500 mg magnesium Tablet 500 mg PO DAILY calcium carbonate 500 mg calcium (1,250 mg) Tablet,Chewable 1,000 mg PO Q2H PRN (Reason: GERD) hydralazine 50 mg Tablet 75 mg PO TID losartan 100 mg tablet 100 mg PO QAM colestipol 1 gram tablet 2 g PO AMHS oxycodone 5 mg tablet 5 mg PO Q6H PRN (Reason: Pain 5-8) oxycodone 5 mg tablet 10 mg PO Q6H PRN (Reason: Pain 9-10) brimonidine-timolol 0.2-0.5 % drops 1 drp OPB BID diclofenac sodium 1 % Gel 2 g TOPICAL QID Rx Instructions: Apply to left hip/left knee, bi-lat feet Xarelto 20 mg tablet 20 mg PO QAM Artificial Tears (cmc) 1 % Drops 1 drp OPL Q6H PRN (Reason: Dry Eyes) amlodipine 10 mg tablet 10 mg PO DAILY Qty: 10 0RF zolpidem 5 mg Tablet 5 mg PO HS PRN (Reason: Sleep) Qty: 10 0RF cefpodoxime 200 mg tablet 200 mg PO BID Qty: 30 0RF Rx Instructions: must administer with a meal/food Referrals Referrals: Girish Bauer III, MD [Primary Care Provider] - Discharge Problem: Pneumonia Qualifiers: Pneumonia type: due to unspecified organism Laterality: unspecified laterality Lung location: unspecified part of lung Qualified Code(s): J18.9 - Pneumonia, unspecified organism
--- NOTE | 2023-10-23 11:41 | CT Scan Report ---
CT head/brain wo con CLINICAL HISTORY: AMS Technique: Contiguous axial CT images of the head were acquired from the base of the skull to the klaudia nae without intravenous contrast administration. Images were viewed in brain, subdural and bone [facility]. Automated dose lowering techniques and/or adjustment according to patient size were utilized for this exam. Comparison: None available at the time of this dictation. Findings: Areas of decreased attenuation are present in the periventricular and subcortical white matter bilate rally consistent with small vessel ischemic disease. Generalized cerebral atrophy with commensurate e nlargement of the ventricles, sulci, and cisterns is also present. There is no acute intracranial hem orrhage or evidence of acute territorial infarction. No shift of the midline structures, mass effect, or extra-axial abnormalities are shown. Atherosclerotic calcifications are present in the intracran ial segments of the internal carotid arteries. Imaged portions of the paranasal sinuses and mastoid air cells are clear. The orbits appear normal. There are no acute fractures of the calvaria or scalp swelling. Impression: No acute intracranial hemorrhage, no evidence of acute territorial infarction or other acute intracra nial disease process. ACT 112: Negative or not required by law. Electronically signed by: Gui Coy M.D. 10/23/2023 11:40 AM
[2023-10-23] MEDS: SODIUM CHLORIDE 0.9% 1,000 ML IV ONE ×2 (11:47→14:49)
[2023-10-23] MEDS: SODIUM CHLORIDE 0.9% 500 ML IV STA (11:47)
[2023-10-23 12:14] LABS: Hematocrit (blood only) 28.4 % (37.0-47.0); Hemoglobin 8.8 g/dl (12.0-16.0); Mean Corpuscular Hemoglobin 29.9 pg (25.0-34.0); Mean Corpuscular Volume 96.6 fL (80.0-100.0); Mean Platelet Volume 9.1 fL (9.4-12.4); Platelet Count 188 K/uL (130-400); RDW Coefficient of Variation 16.2 % (11.5-14.5); RDW Standard Deviation 57.4 fL (36.4-46.3); Red Blood Count 2.94 M/uL (4.20-5.40); White Blood Count 15.66 K/ul (4.8-10.8)
[2023-10-23 12:25] LABS: Albumin Globulin Ratio 1.1 (0.9-2); Albumin Level 3.3 gm/dl (3.4-5.0); BUN Creatinine Ratio 22.5 (10-20); Bilirubin,Total 1.2 mg/dl (0.2-1.0); Calcium 8.7 mg/dl (8.6-10.3); Creatinine Clr Calc Pharmacy 18.6 ml/min; Est GFR (African American) 21.4 ml/min; Est GFR (Non-African American) 18.4 ml/min; Potassium 4.5 mmol/L (3.5-5.1); Total Protein 6.3 gm/dl (6.0-8.3)
[2023-10-23 12:31] LABS: Troponin I High Sensitivity 46.2 pg/ml (0-14)
[2023-10-23 12:34] LABS: INR 1.4 (0.9-1.1); Prothrombin Time 14.6 Seconds (9.0-12.0)
--- NOTE | 2023-10-23 12:34 | XRay Report ---
XR chest 1V portable CLINICAL HISTORY: Hypoxia TECHNIQUE: Single frontal radiograph of the chest was obtained. Comparison: Comparison is made to chest radiograph 10/01/2023 FINDINGS: No lines and tubes are seen. Aortic valvular prosthesis is seen. Prominence and cephalization of the vasculature is seen. No evidence of pleural effusion or pneumothorax. IMPRESSION: Cardiomegaly and mild pulmonary edema. ACT 112: Negative or not required by law. Electronically signed by: Gui Coy M.D. 10/23/2023 12:32 PM
[2023-10-23 12:51] LABS: Basophils # (auto) 0.03 K/uL (0.00-0.20); Basophils % (auto) 0.2 %; Eosinophils # (auto) 0.01 K/uL (0.00-0.50); Eosinophils % (auto) 0.1 %; Immature Granulocytes # (auto) 0.24 K/uL (0.01-0.20); Immature Granulocytes % (auto) 1.5 %; Lymphocytes % (auto) 2.6 %; Monocytes # (auto) 0.61 K/uL (0.11-0.59); Monocytes % (auto) 3.9 %; Neutrophils # (auto) 14.37 K/uL (1.40-6.50); Neutrophils % (auto) 91.7 %
[2023-10-23 12:52] LABS: Adenovirus PCR Not Detected (NotDetected); Bordetella parapertussis PCR Not Detected (NotDetected); Bordetella pertussis PCR Not Detected (NotDetected); Chlamydia pneumoniae PCR Not Detected (NotDetected); Coronavirus 229E PCR Not Detected (NotDetected); Coronavirus CoV-2 (COVID19)PCR Not Detected (NotDetected); Coronavirus HKU1 PCR Not Detected (NotDetected); Coronavirus NL63 PCR Not Detected (NotDetected); Coronavirus OC43PCR Not Detected (NotDetected); Human Metapneumovirus PCR Not Detected (NotDetected); Influenza A PCR Not Detected (NotDetected); Influenza B PCR Not Detected (NotDetected); Mycoplasma pneumoniae PCR Not Detected (NotDetected); Parainfluenza Virus 1 PCR Not Detected (NotDetected); Parainfluenza Virus 2 PCR Not Detected (NotDetected); Parainfluenza Virus 3 PCR Not Detected (NotDetected); Parainfluenza Virus 4 PCR Not Detected (NotDetected); Respiratory Syncytial VirusPCR Not Detected (NotDetected); Rhinovirus/Enterovirus PCR Not Detected (NotDetected)
--- NOTE | 2023-10-23 14:34 | CT Scan Report ---
CT abd pelvis wo con CLINICAL HISTORY: nausea and vomiting TECHNIQUE: Helical axial images of the abdomen and pelvis were obtained. Automated dose lowering tech niques and/or adjustment according to patient size were utilized for this exam. This exam was perfor med without intravenous contrast. CT DOSE: 1254.29 mGy.cm COMPARISON: Comparison is made to CT abdomen pelvis 06/20/2022 FINDINGS: Lower chest: Consolidation is seen in the visualized lower lungs. Liver: Unremarkable. No focal lesions are seen. Gallbladder and biliary tree: Patient is status post cholecystectomy. No intra- or extrahepatic bilia ry ductal dilation. Pancreas: Unremarkable, no focal lesions. Spleen: Unremarkable. Adrenals: Unremarkable. Kidneys and ureters: Prominence of the right collecting system is seen. Bladder: Unremarkable. Reproductive organs: Patient is status post hysterectomy. Bowel: Diverticulosis is seen without evidence of diverticulitis. A large hiatal hernia is seen. Raine ent is status post appendectomy. Lymph nodes Retroperitoneal: Subcentimeter lymph nodes are noted. Pelvic: Unremarkable. Mesenteric: Unremarkable. Peritoneum: Normal. Vessels: Atherosclerotic calcifications are seen. Abdominal wall: Right fat-containing inguinal hernia. Bones: Degenerative changes in the visualized spine. Serpiginous hypodensity in the bilateral hips is nonspecific but can be seen in AVN. IMPRESSION: 1. Pneumonia. 2. Prominence of the right collecting system without obstructive stone, a recently passed stone qian ot be excluded. 3. Diverticulosis without diverticulitis. ACT 112: Negative or not required by law. Electronically signed by: Gui Coy M.D. 10/23/2023 2:33 PM
[2023-10-23] MEDS: CEFEPIME 2,000 MG/20 ML VIAL IV STA (15:19)
[2023-10-23] MEDS: AZITHROMYCIN 500 MG in DEXTROSE 5% 250 ML IV ONE (15:19)
--- NOTE | 2023-10-23 15:27 | Electrocardiogram Report ---
Test Reason : Blood Pressure : */* mmHG Vent. Rate : 95 BPM Atrial Rate : 95 BPM P-R Int : 146 ms QRS Dur : 86 ms QT Int : 340 ms P-R-T Axes : 21 4 64 degrees QTcB Int : 427 ms Normal sinus rhythm Normal ECG When compared with ECG of 01-Oct-2023 05:35, Criteria for Septal infarct are no longer Present Confirmed by Benito Oakes ([id number]) on 10/23/2023 3:27:03 PM Referred By: [facility] Confirmed By: Benito Oakes
[2023-10-23] MEDS ORDERED: GLUCAGON FOR INJ 1 MG VIAL SQ PRN (16:03)
[2023-10-23] MEDS ORDERED: GLUCOSE 10 TAB/TUBE PO PRN (16:03)
[2023-10-23] MEDS ORDERED: DEXTROSE 50% 50 ML SYRINGE IV PRN (16:03)
[2023-10-23] MEDS ORDERED: CARBOHYDRATES FOR HYPOGLYCEMIA PO PRN (16:03)
[2023-10-23] MEDS ORDERED: GLUCOSE 40% GEL 15 GM TUBE PO PRN (16:03)
--- NOTE | 2023-10-23 16:26 | History & Physical Report ---
Date of Service October 23, 2023 Assessment & Plan (1) Pneumonia: Plan: Assessment: 1. Altered mental status probably secondary to acute pneumonia. 2. Bilateral lower lobe pneumonias by CT of the abdomen pelvis. I suspect aspiration given her 2-day history of nausea and vomiting. IV Zosyn for now. CT of the chest to further develop late the patient's pneumonic process. Sputum cultures if able to be obtained. 3. Recent history (September 2023) with strep bacteremia. Continue Zosyn for now. Blood cultures x 1 due to a blood culture shortage. 4. Decubitus ulcers. Low airflow bed ordered. Wound care nurse ordered. 5. Recent history of right-sided DVT. On Xarelto. Continue. 6. Anemia of chronic disease. Monitor carefully. 7. CKD stage IIIb. Hydrate monitor carefully. 8. Lactic acidemia. Hydrate and recheck. 9. Left heel ulceration. Wound care nurse consulted. I do not see anything to culture. 10. Steroid dependency chronically. Will continue her home dose. She does not appear to be frankly septic at this time. If we need stress dose steroids if her blood pressure to drop we will do that. 11. DNR status as discussed above. Plan: As discussed above. Please refer to orders for further planning. History of Present Illness Chief Complaint: Nausea vomiting decreased mentation. Primary Care Provider: Girish Bauer III, MD This is an 82-year-old female resides at a longterm. She apparently has had nausea and vomiting over the last couple days with over the last 2 days decrease in her mentation/altered mental status. She is brought to the ER for further evaluation and treatment. In the emergency department patient was found to have a white count of 15.88. Hemoglobin of 8.8 which is approximately her baseline. Left shift was noted on the differential. BUN and creatinine 24 and 2.4 respectively. Lactic acid initially 2.4. 2 L of saline were administered. Repeat lactic acid was 2.5. Lipase was unremarkable. LFTs were unremarkable. troponin was 46.2. CT of the abdomen pelvis was positive for pneumonia with a possible right collecting duct prominence suggestive of possible recently passed stone. There was diverticulosis with no evidence of diverticulitis. Again there was consolidation seen on CT the abdomen pelvis and both lower lobes. The patient received 2 L IV fluid in the ER she received IV cefepime and IV azithromycin. We are called with the patient further evaluation and treatment. We suspect aspiration pneumonia. Will place the patient on Zosyn. The patient additionally recently admitted for strep bacteremia. Has been on a cephalosporin at home. Patient had a CT of her brain which was negative for acute findings as well in the ER. Blood cultures were obtained x 1 due to blood culture shortage nationally. 2 cultures were not obtained. Will continue the Zosyn at this time. Monitor the patient carefully continue to hydrate monitor a lactic acid level. She is a DO NOT RESUSCITATE the ER provider spoke with her next of kin. Allergies Allergy/AdvReac Type Severity Reaction Status Date / Time aspirin Allergy Severe ANAPHYLAXIS Verified 10/23/23 14:31 duloxetine [From Cymbalta] Allergy Intermediate Rash Verified 10/23/23 14:31 NSAIDS (Non-Steroidal Allergy Unknown Verified 10/23/23 14:32 Anti-Inflamma lisinopril AdvReac Intermediate Cough Verified 10/23/23 14:31 Home Medications Medication Instructions Recorded Confirmed Type acetaminophen 325 mg tablet 650 mg PO Q6 PRN Fever Or Pain 09/28/23 10/23/23 History (Tylenol) brimonidine 0.2 %-timolol 0.5 % 1 drp OPB BID 09/28/23 10/23/23 History eye drops bumetanide 2 mg tablet 2 mg PO QAM 09/28/23 10/23/23 History calcium carbonate 1,000 mg PO Q2H PRN GERD 09/28/23 10/23/23 History carboxymethylcellulose sodium 1 % 1 drp OPL Q6H PRN Dry Eyes 09/28/23 10/23/23 History eye drops (Artificial Tears (carboxymethylcellulose)) colestipol 1 gram tablet 2 g PO AMHS 09/28/23 10/23/23 History diclofenac sodium 1 % topical gel 2 g topical QID 09/28/23 10/23/23 History famotidine 10 mg tablet 10 mg PO HS 09/28/23 10/23/23 History hydralazine 50 mg tablet 75 mg PO TID 09/28/23 10/23/23 History levothyroxine 75 mcg tablet 75 mcg PO QAM 09/28/23 10/23/23 History loratadine 5 mg-pseudoephedrine ER 1 tab PO Q12H 09/28/23 10/23/23 History 120 mg tablet,extended release,12hr (Claritin-D 12 Hour) losartan 100 mg tablet 100 mg PO QAM 09/28/23 10/23/23 History magnesium oxide 500 mg PO DAILY 09/28/23 10/23/23 History ondansetron HCl 4 mg tablet 4 mg PO Q6H PRN Nausea 09/28/23 10/23/23 History oxycodone 5 mg tablet 5 mg PO Q6H PRN Pain 5-8 09/28/23 10/23/23 History oxycodone 5 mg tablet 10 mg PO Q6H PRN Pain 9-10 09/28/23 10/23/23 History pantoprazole 40 mg tablet,delayed 40 mg PO DAILY 09/28/23 10/23/23 History release polysaccharide iron complex 150 mg 150 mg PO DAILY 09/28/23 10/23/23 History iron capsule (Ferrex) prednisone 5 mg tablet 5 mg PO DAILY 09/28/23 10/23/23 History rivaroxaban 20 mg tablet (Xarelto) 20 mg PO QAM 09/28/23 10/23/23 History ropinirole 2 mg tablet 2 mg PO HS 09/28/23 10/23/23 History tizanidine 4 mg tablet 4 mg PO HS 09/28/23 10/23/23 History travoprost 0.004 % eye drops 2 drp OPB QPM 09/28/23 10/23/23 History amlodipine 10 mg tablet 10 mg PO DAILY #10 tabs 10/03/23 10/23/23 Rx cefpodoxime 200 mg tablet 200 mg PO BID #30 tabs 10/03/23 10/23/23 Rx zolpidem 5 mg tablet 5 mg PO HS PRN Sleep #10 tabs 10/03/23 10/23/23 Rx carvedilol 6.25 mg tablet 6.25 mg PO BID 10/23/23 10/23/23 History escitalopram oxalate 20 mg tablet 20 mg PO DAILY 10/23/23 10/23/23 History gabapentin 300 mg capsule 300 mg PO TID 10/23/23 10/23/23 History menthol 0.44 %-zinc oxide 20.6 % 1 applic topical QID 10/23/23 10/23/23 History topical ointment (Calmoseptine) venlafaxine 150 mg 150 mg PO QAM 10/23/23 10/23/23 History capsule,extended release 24 hr Past Med/Surg History Problem List (Updated 10/23/23 @ 16:22 by Aftab Osei, PhD, DO) Pneumonia Essential hypertension Insomnia Metabolic encephalopathy Streptococcal bacteremia Lower extremity ulceration Acute respiratory failure with hypoxia Sepsis (Acute) Hypoxia (Acute) Respiratory failure (Acute) Degenerative spondylolisthesis Scoliosis of lumbar region due to degenerative disease of spine in adult Painful orthopaedic hardware Encounter for pre-operative examination Occult blood positive stool Anemia Generalized weakness (Acute) Bilateral edema of lower extremity (Acute) Acute kidney injury superimposed on chronic kidney disease (Acute) Acute UTI (urinary tract infection) (Acute) Greater trochanteric bursitis of left hip Bilateral leg edema Acute hypoxemic respiratory failure Community acquired pneumonia Hypoxia (Acute) Elevated troponin (Acute) Weakness (Acute) Gastroenteritis (Acute) Hypertensive urgency Elevated troponin (Acute) Lumbar spinal stenosis Severe at L2-S1 DVT prophylaxis Acute kidney injury superimposed on CKD Weakness (Acute) Fatigue (Acute) HTN (hypertension) (Chronic) Spinal stenosis, lumbar region with neurogenic claudication Hypothyroidism Depression Neuropathy (Chronic) FEET Osteoarthritis (Chronic) Restless leg syndrome (Chronic) Glaucoma (Chronic) Medical History Steroid dependence DVT (deep venous thrombosis) Non-ST elevation LA (NSTEMI) CKD (chronic kidney disease), stage III longterm resident resident of [facility] Low hemoglobin and low hematocrit Dysphagia Gait abnormality Weakness Low back pain Personal history of venous thrombosis and embolism Other intestinal Escherichia coli infections Cognitive communication deficit Adult failure to thrive Herniated lumbar disc without myelopathy Left central disc herniation at L5-S1 Lumbar radiculopathy High cholesterol Anxiety Rheumatoid arthritis FOLLOWS DR. TREVINO Hypertension Surgical History History of total bilateral knee replacement (TKR) History of carpal tunnel release RIGHT HAND Hx of arthroscopy RIGHT KNEE (MENISCUS) Hx of tonsillectomy Hx of hysterectomy Hx laparoscopic cholecystectomy Family History Mother Family history of reaction to anesthesia SLOW TO AWAKEN Social History Smoking Status: Never smoker Second Hand Exposure: No; Do You Dip or Chew Tobacco: No; Hx Alcohol Use: No Hx Substance Use: No Preferred Language: Yoruba Communication Ability: Impaired Visual Impairment: No Limitations Admissions Evaluator Required: No Beliefs That Will Affect Care: Yazidism marital status: Single Current Living Situation: Retirement Current Living Situation Comment: pt is resident at [facility] How many Children do You have: 0 Feels Safe at Home: Yes Assistive Devices: Wheelchair Review of Systems Review of Systems: A 10 point review of system was obtained and unless otherwise stated here or in history of present illness are negative and noncontributory to chief complaint. Physical Exam Physical Exam: In General: In general 82-year-old female who is alert and oriented only to person. Not to place and time. I suspect this could be her baseline. HEENT: Normocephalic atraumatic pupils are equal round and reactive to light bilaterally. No scleral icterus no conjunctival injection external auditory canals are patent septum is in the midline nose is without discharge oral mucosa is pink and dry without lesion. NECK: Supple no rigidity no lymphadenopathy no thyromegaly no carotid bruits no JVD no masses. HEART: Regular rate and rhythm I do not appreciate any ectopy or rub. No murmur. LUNGS: Lungs are globally diminished. I do not appreciate wheezes. But very poor air exchange. Due to poor inspiratory effort. ABDOMEN: Soft nontender, no rebound, no peritoneal signs, positive bowel sounds, no appreciable organomegaly. EXTREMITIES: Intact, no peripheral cyanosis, clubbing or edema. The patient has chronic lower extremity contractures appears to be nonambulatory. Left heel ulceration still present. Does not appear to be infected. No surrounding cellulitis or discharge. NEUROLOGICAL: Patient is unable to cooperate with cranial nerve exam. Skin exam. The patient does have an early pressure ulcer on the coccyx region left greater than right. There is no discharge. Just lateral of midline. There is no appreciable surrounding cellulitis. Left heel ulceration as discussed above under extremities. Results & Data Results & Data Vital Signs (Past 12 Hours) Vital Signs Temp Pulse Resp BP Pulse Ox O2 Del Method O2 Flow Rate 10/23/23 15:31 102 H 10/23/23 14:53 90 Nasal Cannula 2 10/23/23 14:53 37.5 C 10/23/23 14:39 106 H 20 92 3 10/23/23 14:30 163/81 H 10/23/23 14:30 163/81 H 10/23/23 14:24 105 H 20 92 3 10/23/23 14:06 106 H 22 92 3 10/23/23 14:00 141/96 H 10/23/23 14:00 141/96 H 10/23/23 13:57 103 H 20 91 3 10/23/23 13:33 138/67 10/23/23 13:33 138/67 10/23/23 13:33 138/67 10/23/23 13:33 102 H 20 92 2 10/23/23 13:00 105/74 10/23/23 13:00 105/74 10/23/23 13:00 105/74 10/23/23 13:00 105/74 10/23/23 13:00 105/74 10/23/23 13:00 105/74 10/23/23 13:00 105 H 20 92 2 10/23/23 12:30 112/63 10/23/23 12:30 112/63 10/23/23 12:30 105 H 20 94 2 10/23/23 12:01 116/78 10/23/23 11:48 92 H 19 10/23/23 11:42 92 H 23 98 10/23/23 11:40 122/59 L 10/23/23 11:36 97 Nasal Cannula 2 10/23/23 11:21 95 H 23 95 10/23/23 11:19 37.8 C H 95 H 18 129/70 87 L Room Air 10/23/23 11:11 97 H Code Status & VTE Plan Code Status DO NOT RESUSCITATE. The next of kin spoke with the ER provider please see their documentation and order. VTE Prophylaxis Plan VTE Prophylaxis will be ordered: Yes PG Care Time/CCT Total # of Minutes Spent Total Time Spent with Patient: Total time spent is greater than 50% in coordination of care (as documented) at patient's floor/unit and/or counseling patient: Coding Level of Care Code 21275 INT INP/OBS CARE 3/75MIN Diagnoses Pneumonia J18.9
[2023-10-23] MEDS: ACETAMINOPHEN 1,000 MG/100 ML VIAL IV STA ×2 (17:32→18:32)
[2023-10-23] MEDS: LACTATED RINGER'S 1,000 ML IV SCH (17:32)
--- NOTE | 2023-10-23 17:39 | CT Scan Report ---
CT chest diagnostic wo con CLINICAL HISTORY: PNA? TECHNIQUE: Multidetector row helical CT of the chest was performed. Coronal and sagittal reformations were obtained. Automated dose lowering techniques and/or adjustment according to patient size were u tilized for this exam. CT DOSE: 652.33 mGy.cm Comparison: Comparison is made to chest radiograph 10/23/2023 FINDINGS: Lungs and pleura: Multifocal airspace opacities are seen. There are trace bilateral effusions. Heart and pericardium: Cardiomegaly is seen with biatrial enlargement. Vessels: Severe atherosclerotic changes in the aorta and coronary arteries. Mediastinum and peter: Subcentimeter lymph nodes are seen. Chest wall and lower neck: Unremarkable. Abdomen: For findings below the diaphragm, please refer to CT of the abdomen dated the same. Bones: Degenerative changes in the thoracic spine. IMPRESSION: Multifocal airspace opacities compatible with pneumonia. Trace bilateral pleural effusions. ACT 112: Negative or not required by law. Electronically signed by: Gui Coy M.D. 10/23/2023 5:38 PM
[2023-10-23] MEDS: SODIUM CHLORIDE 0.9% 1,000 ML IV SCH (19:00)
[2023-10-23] MEDS ORDERED: STAT IV Infusion **Titration per Protocol STA (19:25)
[2023-10-23] MEDS ORDERED: VANCOMYCIN CONSULT ACTIVE PRN (19:26)
[2023-10-23] MEDS: HYDROCORTISONE SOD SUCCINATE 100 MG/2 ML VIAL IV SCH (19:33)
[2023-10-23] MEDS: NOREPINEPHRINE/D5W 4 MG/250 ML PLCT IV SCH (19:33)
[2023-10-23] MEDS: PIPERACILLIN/TAZOBACTAM 4.5 GM/100 ML BAG IV SCH (19:44)
--- NOTE | 2023-10-23 19:49 | Pharmacy Report ---
Pharmacy PK ABX Note - Date of Service October 23, 2023 - Assessment and Plan Assessment * 82 year old F receiving pip/tazo and vancomycin for treatment of septic shock 2nd aspiration PNA. Norepinephrine starting. Starting on stress dose steroids w anticipated transfer to ICU * PMH: CKD III, chronic steroids, recent hx Group G Strep bacteremia * Pertinent microbiologic data includes: blood culture x1 set and nasal MRSA swab pending Plan Vancomycin * Loading dose: 1500 mg IV x 1 * SCr elevated from baseline - will dose vancomycin via level for now * If SCr stabilizes, will then target an AUC/MARI of 400-600 mg/L.hr * Random level ordered for 8/14 AM Pharmacy will continue to follow and will adjust dose/frequency as necessary. Thank you. Pharmacy has transitioned to AUC monitoring for vancomycin. AUC/MARI is the preferred PK/PD target and is associated with decreased risk of nephrotoxicity compared to traditional trough targets.
--- NOTE | 2023-10-23 20:19 | Critical Care Consultation ---
Date of Consultation October 23, 2023 Assessment & Plan (1) Septic shock: Reason Critically Ill: 82-year-old female with extensive past medical history presents to the ICU with septic shock requiring vasopressor support likely from pulmonary source. Neuro - AMSpatient minimally responsive but is able to state name, and appears to be hesitant to comply with neurological exam. She does have underlying dementia and presents from assisted. CT head unremarkable. 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 Likely sepsis may be playing a role as well. Monitor for now Peripheral neuropathyNeurontin and Oxycodone on hold due to encephalopathy Cardiac - Septic shockpatient with hypotension in the setting of sepsis requiring vasopressor support with Levophed drip. Also received 2 L crystalloid bolus prior to starting vasopressors - Maintain MAP greater than 65 and wean pressors as tolerated -Hold antihypertensives - Patient previously on prednisone was started on hydrocortisone in the ER, no cortisol level obtained. Will continue hydrocortisone for now -Previous echo from 10/02 with normal EF and no regional wall motion abnormalities, did show evidence of severe pulmonary hypertension - Continuous monitoring on telemetry Respiratory - Acute hypoxemic respiratory failurelikely in the setting of underlying multifocal pneumonia, also patient does have pulmonary hypertension noted on previous TTE which may be contributing - Currently maintaining oxygen saturation on nasal cannula, no acute respiratory distress - See ID for treatment below - Hold on diuresis given hypotension/septic shock - Continuous monitoring pulse ox, wean oxygen as tolerated GI - GERDfamotidine RENAL/LYTES - CKD stage IIIcreatinine currently at 2.4 appears to be consistent with previous admissions. No electrolyte abnormalities or acidosis. Monitor routine BMPs and replete electrolytes as indicated. Maintain MAP greater than 65 and avoid nephrotoxins. Continue with IV fluid resuscitation - Foleystrict I's and O's ENDO - Hypothyroidismcontinue Synthroid Rheumatoid arthritisprednisone on hold in favor of IV hydrocortisone in the setting of septic shock HEME - AnemiaH&H currently at baseline at 8.8. Monitor routine CBC and transfuse as indicated ID - Sepsislikely pulmonary source with evidence of multifocal pneumonia noted on CT chest - Urinalysis currently pending -Nasal MRSA pending - Blood cultures pending - Continue broad-spectrum antibiotics with Zosyn and vancomycin for now LINES/IV ACCESS - Peripheral IVs, currently on low-dose Levophed and will consider central line if pressor requirements increase DVT PROPHYLAXIS - SCDs, Does have previous history of DVT and will continue on Xarelto CODE STATUS: DNR/DNI I have personally spent 62 minutes of critical care time in the direct management of this patient. This is a life/limb threatening event. This includes time spent evaluating patient, direct bedside care, chart review, placing orders, interpretation of diagnostic studies, discussion with consultants, patient, and family members, as well as other required patient management activities. This time is exclusive of all separately billable procedures, and teaching time and separate from and in addition to any other critical care service time. Thank you for allowing us to participate in the care of this patient. Please refer to my attending physician's documentation for any further recommendations. (2) Pneumonia: (3) Essential hypertension: (4) Metabolic encephalopathy: (5) Acute respiratory failure with hypoxia: (6) Hypothyroidism: History of Present Illness Attending Physician: Aftab Osei, PhD, DO History of Present Illness Patient is a 82-year-old female with past medical history significant for HTN, dementia, anemia, hypothyroidism, neuropathy, CKD, failure to thrive, and is currently resident of assisted who presented to the emergency department earlier today with nausea and vomiting over the last 2 days and a decrease in her mental status. She was noted to have leukocytosis and elevated lactate of 2.4. CT chest showed Consolidations consistent with multifocal pneumonia. She was given 2 L crystalloid bolus and started on broad-spectrum antibiotics with Zosyn and vancomycin. Patient became hypotensive despite fluid resuscitation and was started on vasopressor support with Levophed drip. She is now being transferred to ICU for further management at this time. Allergies Allergy/AdvReac Type Severity Reaction Status Date / Time aspirin Allergy Severe ANAPHYLAXIS Verified 10/23/23 14:31 duloxetine [From Cymbalta] Allergy Intermediate Rash Verified 10/23/23 14:31 NSAIDS (Non-Steroidal Allergy Unknown Verified 10/23/23 14:32 Anti-Inflamma lisinopril AdvReac Intermediate Cough Verified 10/23/23 14:31 Home Medications Medication Instructions Recorded Confirmed Type acetaminophen 325 mg tablet 650 mg PO Q6 PRN Fever Or Pain 09/28/23 10/23/23 History (Tylenol) brimonidine 0.2 %-timolol 0.5 % 1 drp OPB BID 09/28/23 10/23/23 History eye drops bumetanide 2 mg tablet 2 mg PO QAM 09/28/23 10/23/23 History calcium carbonate 1,000 mg PO Q2H PRN GERD 09/28/23 10/23/23 History carboxymethylcellulose sodium 1 % 1 drp OPL Q6H PRN Dry Eyes 09/28/23 10/23/23 History eye drops (Artificial Tears (carboxymethylcellulose)) colestipol 1 gram tablet 2 g PO AMHS 09/28/23 10/23/23 History diclofenac sodium 1 % topical gel 2 g topical QID 09/28/23 10/23/23 History famotidine 10 mg tablet 10 mg PO HS 09/28/23 10/23/23 History hydralazine 50 mg tablet 75 mg PO TID 09/28/23 10/23/23 History levothyroxine 75 mcg tablet 75 mcg PO QAM 09/28/23 10/23/23 History loratadine 5 mg-pseudoephedrine ER 1 tab PO Q12H 09/28/23 10/23/23 History 120 mg tablet,extended release,12hr (Claritin-D 12 Hour) losartan 100 mg tablet 100 mg PO QAM 09/28/23 10/23/23 History magnesium oxide 500 mg PO DAILY 09/28/23 10/23/23 History ondansetron HCl 4 mg tablet 4 mg PO Q6H PRN Nausea 09/28/23 10/23/23 History oxycodone 5 mg tablet 5 mg PO Q6H PRN Pain 5-8 09/28/23 10/23/23 History oxycodone 5 mg tablet 10 mg PO Q6H PRN Pain 9-10 09/28/23 10/23/23 History pantoprazole 40 mg tablet,delayed 40 mg PO DAILY 09/28/23 10/23/23 History release polysaccharide iron complex 150 mg 150 mg PO DAILY 09/28/23 10/23/23 History iron capsule (Ferrex) prednisone 5 mg tablet 5 mg PO DAILY 09/28/23 10/23/23 History rivaroxaban 20 mg tablet (Xarelto) 20 mg PO QAM 09/28/23 10/23/23 History ropinirole 2 mg tablet 2 mg PO HS 09/28/23 10/23/23 History tizanidine 4 mg tablet 4 mg PO HS 09/28/23 10/23/23 History travoprost 0.004 % eye drops 2 drp OPB QPM 09/28/23 10/23/23 History amlodipine 10 mg tablet 10 mg PO DAILY #10 tabs 10/03/23 10/23/23 Rx cefpodoxime 200 mg tablet 200 mg PO BID #30 tabs 10/03/23 10/23/23 Rx zolpidem 5 mg tablet 5 mg PO HS PRN Sleep #10 tabs 10/03/23 10/23/23 Rx carvedilol 6.25 mg tablet 6.25 mg PO BID 10/23/23 10/23/23 History escitalopram oxalate 20 mg tablet 20 mg PO DAILY 10/23/23 10/23/23 History gabapentin 300 mg capsule 300 mg PO TID 10/23/23 10/23/23 History menthol 0.44 %-zinc oxide 20.6 % 1 applic topical QID 10/23/23 10/23/23 History topical ointment (Calmoseptine) venlafaxine 150 mg 150 mg PO QAM 10/23/23 10/23/23 History capsule,extended release 24 hr Patient History Medical History Steroid dependence DVT (deep venous thrombosis) Non-ST elevation [place] (NSTEMI) CKD (chronic kidney disease), stage III care home resident resident of [facility] Low hemoglobin and low hematocrit Dysphagia Gait abnormality Weakness Low back pain Personal history of venous thrombosis and embolism Other intestinal Escherichia coli infections Cognitive communication deficit Adult failure to thrive Herniated lumbar disc without myelopathy Left central disc herniation at L5-S1 Lumbar radiculopathy High cholesterol Anxiety Rheumatoid arthritis FOLLOWS DR. TREVINO Hypertension Surgical History History of total bilateral knee replacement (TKR) History of carpal tunnel release RIGHT HAND Hx of arthroscopy RIGHT KNEE (MENISCUS) Hx of tonsillectomy Hx of hysterectomy Hx laparoscopic cholecystectomy Family History Mother Family history of reaction to anesthesia SLOW TO AWAKEN Social History Smoking Status: Never smoker Second Hand Exposure: No; Do You Dip or Chew Tobacco: No; Hx Alcohol Use: No Hx Substance Use: No Preferred Language: Hungarian Communication Ability: Effective Communication Ability Comment: Pt disoriented, but able to communicate needs Visual Impairment: No Limitations Jacker Feeder Required: No Beliefs That Will Affect Care: None marital status: Single Current Living Situation: [facility]dc Current Living Situation Comment: pt is resident at [facility] How many Children do You have: 0 Feels Safe at Home: Yes Assistive Devices: Glasses and Walker Review of Systems Review of Systems: Unobtainable due to cognitive status Physical Exam Constitutional: + thin and + frail appearing; no acute d istress Eyes: PERRL, conjunctivae normal, anicteric sclerae ENMT: external ear and nose normal, oropharynx normal Neck: trachea midline, no thyromegaly Respiratory: normal respiratory effort, lungs clear to auscultation Cardiovascular: RRR, no murmur, no edema Heart Sounds: normal S1 and normal S2 Extremities: no edema Gastrointestinal (Abdomen): normal bowel sounds, soft, nontender, no hepatosplenomegaly Musculoskeletal: Foot drop noted bilaterally, Generalized muscle atrophy Skin: Decubitus ulcer x 2, heel ulcer x 1 Neurologic: No facial droop or dysarthria. Patient appears to be moving extremities with equal strength and coordination, without hemineglect. Psychiatric: Confused, does not cooperate with exam Results & Data Results & Data Vital Signs (Past 12 Hours) Vital Signs Temp Pulse Pulse Resp BP BP Pulse Ox 10/23/23 19:47 19 105/71 96 10/23/23 19:40 87 100/45 L 96 10/23/23 19:30 84 23 94 10/23/23 19:27 85 23 97 10/23/23 19:25 83/51 L 10/23/23 19:25 83/51 L 10/23/23 19:25 83/51 L 10/23/23 19:24 36.8 C 10/23/23 19:20 69/45 L 10/23/23 19:20 85 10/23/23 19:16 83/43 L 10/23/23 19:16 83/43 L 10/23/23 19:16 83/43 L 10/23/23 19:12 85 24 96 10/23/23 19:10 81/40 L 10/23/23 19:10 81/40 L 10/23/23 19:10 81/40 L 10/23/23 19:09 86 22 95 10/23/23 19:07 79/41 L 10/23/23 19:07 79/41 L 10/23/23 18:48 89 25 H 97 10/23/23 18:46 82/64 L 10/23/23 18:39 90 24 96 10/23/23 18:36 90 25 H 96 10/23/23 18:36 38.3 C H 10/23/23 18:30 95/44 L 10/23/23 18:30 95/44 L 10/23/23 18:30 95/44 L 10/23/23 18:30 90 23 97 10/23/23 18:27 91 H 26 H 97 10/23/23 18:24 92 H 26 H 97 10/23/23 18:09 92 H 26 H 96 10/23/23 18:03 93 H 22 96 10/23/23 18:00 106/53 L 10/23/23 17:57 94 H 25 H 95 10/23/23 17:51 95 H 26 H 94 10/23/23 17:45 96 H 28 H 94 10/23/23 17:42 97 H 29 H 93 10/23/23 17:30 101 H 31 H 94 10/23/23 17:30 125/76 10/23/23 17:21 103 H 30 H 93 10/23/23 17:19 178/71 H 10/23/23 17:19 178/71 H 10/23/23 17:19 39.5 C H 103 H 22 178/71 H 93 10/23/23 16:54 103 H 31 H 92 10/23/23 16:51 103 H 32 H 92 10/23/23 16:45 103 H 33 H 93 10/23/23 16:42 103 H 27 H 93 10/23/23 16:39 104 H 36 H 93 10/23/23 16:30 113/63 10/23/23 16:30 107 H 22 113/63 92 10/23/23 16:24 108 H 27 H 91 10/23/23 16:15 108 H 37 H 89 L 10/23/23 16:00 107 H 22 90 10/23/23 16:00 123/60 10/23/23 16:00 123/60 10/23/23 15:57 107 H 33 H 90 10/23/23 15:31 102 H 10/23/23 14:53 90 10/23/23 14:53 37.5 C 10/23/23 14:39 106 H 20 92 10/23/23 14:30 163/81 H 10/23/23 14:30 163/81 H 10/23/23 14:24 105 H 20 92 10/23/23 14:06 106 H 22 92 10/23/23 14:00 141/96 H 10/23/23 14:00 141/96 H 10/23/23 13:57 103 H 20 91 10/23/23 13:33 138/67 10/23/23 13:33 138/67 10/23/23 13:33 138/67 10/23/23 13:33 102 H 20 92 10/23/23 13:00 105/74 10/23/23 13:00 105/74 10/23/23 13:00 105/74 10/23/23 13:00 105/74 10/23/23 13:00 105/74 10/23/23 13:00 105/74 10/23/23 13:00 105 H 20 92 10/23/23 12:30 112/63 10/23/23 12:30 112/63 10/23/23 12:30 105 H 20 94 10/23/23 12:01 116/78 10/23/23 11:48 92 H 19 10/23/23 11:42 92 H 23 98 10/23/23 11:40 122/59 L 10/23/23 11:36 97 10/23/23 11:21 95 H 23 95 10/23/23 11:19 37.8 C H 95 H 18 129/70 87 L 10/23/23 11:11 97 H O2 Del Method O2 Flow Rate 10/23/23 19:47 Nasal Cannula 6 10/23/23 19:40 Nasal Cannula 6 10/23/23 19:30 10/23/23 19:27 10/23/23 19:25 10/23/23 19:25 10/23/23 19:25 10/23/23 19:24 10/23/23 19:20 10/23/23 19:20 10/23/23 19:16 10/23/23 19:16 10/23/23 19:16 10/23/23 19:12 10/23/23 19:10 10/23/23 19:10 10/23/23 19:10 10/23/23 19:09 10/23/23 19:07 10/23/23 19:07 10/23/23 18:48 10/23/23 18:46 10/23/23 18:39 10/23/23 18:36 10/23/23 18:36 10/23/23 18:30 10/23/23 18:30 10/23/23 18:30 10/23/23 18:30 10/23/23 18:27 10/23/23 18:24 10/23/23 18:09 10/23/23 18:03 10/23/23 18:00 10/23/23 17:57 10/23/23 17:51 10/23/23 17:45 10/23/23 17:42 10/23/23 17:30 10/23/23 17:30 10/23/23 17:21 10/23/23 17:19 10/23/23 17:19 10/23/23 17:19 Nasal Cannula 6 10/23/23 16:54 10/23/23 16:51 10/23/23 16:45 10/23/23 16:42 10/23/23 16:39 10/23/23 16:30 10/23/23 16:30 Nasal Cannula 6 10/23/23 16:24 10/23/23 16:15 10/23/23 16:00 10/23/23 16:00 10/23/23 16:00 10/23/23 15:57 10/23/23 15:31 10/23/23 14:53 Nasal Cannula 2 10/23/23 14:53 10/23/23 14:39 3 10/23/23 14:30 10/23/23 14:30 10/23/23 14:24 3 10/23/23 14:06 3 10/23/23 14:00 10/23/23 14:00 10/23/23 13:57 3 10/23/23 13:33 10/23/23 13:33 10/23/23 13:33 10/23/23 13:33 2 10/23/23 13:00 10/23/23 13:00 10/23/23 13:00 10/23/23 13:00 10/23/23 13:00 10/23/23 13:00 10/23/23 13:00 2 10/23/23 12:30 10/23/23 12:30 10/23/23 12:30 2 10/23/23 12:01 10/23/23 11:48 10/23/23 11:42 10/23/23 11:40 10/23/23 11:36 Nasal Cannula 2 10/23/23 11:21 10/23/23 11:19 Room Air 10/23/23 11:11 Coding Level of Care Code 62468 CRITICAL CARE 1ST 30-74M Diagnoses Septic shock A41.9; R65.21 Pneumonia J18.9 Essential hypertension I10 Metabolic encephalopathy G93.41 Acute respiratory failure with hypoxia J96.01 Hypothyroidism E03.9
[2023-10-23] MEDS: VANCOMYCIN HCL 1,500 MG in SODIUM CHLORIDE 0.9% 500 ML IV STA (20:51)
[2023-10-23] MEDS ORDERED: VANCOMYCIN HCL 1,250 MG in SODIUM CHLORIDE 0.9% 500 ML IV SCH (21:00)
[2023-10-23] MEDS ORDERED: oxyCODONE HCL IR 5 MG TAB (IMMEDIATE RELEASE) PO PRN ×2 (21:02)
[2023-10-23 21:09] LABS: Appearance Urine Cloudy (Clear); Bacteria Urine Automated 1+ (None Seen); Bilirubin Urine Negative (Negative); Blood Urine Trace (Negative); Color Urine Yellow; Epithelial Cell Urine Auto 0-2 /hpf (0-2); Glucose Urine UA Negative (Negative); Ketones Urine Negative (Negative); Leukocyte Esterase Urine 3+ (Negative); Nitrite Urine Negative (Negative); Protein Urine 3+ (Negative); RBC Urine Automated 0-2 /hpf (0-2); Specific Gravity Urine 1.014 (1.000-1.030); Urobilinogen Urine Negative (Negative); WBC Urine Automated >50 /hpf (0-5)
[2023-10-23] MEDS: carvediloL 6.25 MG TAB PO SCH (21:57)
[2023-10-23] MEDS: hydrALAZINE HCL 25 MG TAB PO SCH (21:57)
[2023-10-23] MEDS: GABAPENTIN 300 MG CAP PO SCH (21:59)
[2023-10-23] MEDS: FAMOTIDINE 10 MG TABLET PO SCH (22:00)
[2023-10-23] MEDS: rOPINIRole HCL 2 MG TABLET PO SCH (22:01)
[2023-10-23] MEDS: tiZANidine HCL 4 MG TABLET PO SCH (22:01)
[2023-10-23] MEDS: MENTHOL-ZINC OXIDE 360 APPLN/120 GM TUBE EXT SCH (22:02)
[2023-10-23] MEDS: TRAVOPROST Z 0.004% OPH SOLN 2.5 ML BTL OPB SCH (22:02)
[2023-10-23] MEDS: COLESTIPOL HCL 1 GM TAB PO SCH (23:30)
[2023-10-23 23:37] LABS: BUN Creatinine Ratio 20.2 (10-20); Calcium 7.2 mg/dl (8.6-10.3); Creatinine Clr Calc Pharmacy 17.2 ml/min; Est GFR (African American) 20.7 ml/min; Est GFR (Non-African American) 17.8 ml/min; Magnesium 2.1 mg/dl (1.7-2.4); Potassium 4.2 mmol/L (3.5-5.1)
[2023-10-24] MEDS ORDERED: HYDROCORTISONE SOD SUCCINATE 100 MG/2 ML VIAL IV SCH
[2023-10-24] MEDS ORDERED: HYDROCORTISONE SOD 100 MG in SYRINGE 0 ML IV SCH
[2023-10-24] MEDS: PLASMA-LYTE A 1,000 ML IV SCH (01:21)
[2023-10-24 02:54] LABS: A calco-baum cmplx NotReported Not Detected (NotDetected); Bact fragilis Not Reported Not Detected (NotDetected); Blood Culture Id Panel See PCR Comment (NotDetected); C auris Not Reported Not Detected (NotDetected); Calbicans Not Reported Not Detected (NotDetected); Candida glabrata Not Reported Not Detected (NotDetected); Candida krusei Not Reported Not Detected (NotDetected); Cneoformans/gatti Not Reported Not Detected (NotDetected); Cparapsilosis Not Reported Not Detected (NotDetected); E cloacae compx Not Reported Not Detected (NotDetected); Efaecalis Not Reported Not Detected (NotDetected); Efaecium Not Reported Not Detected (NotDetected); Enterobacterales DETECTED (NotDetected); Enterobacterales Not Reported DETECTED (NotDetected); Escherichia coli Not Reported DETECTED (NotDetected); H influenzae Not Reported Not Detected (NotDetected); IMP Resistant Gene Not Detected (NotDetected); K aerogenes Not Reported Not Detected (NotDetected); KPC Resistant Gene Not Detected (NotDetected); Koxytoca Not Reported Not Detected (NotDetected); Kpneumoniae grp Not Reported Not Detected (NotDetected); Lmonocyt Not Reported Not Detected (NotDetected); N meningitidis Not Reported Not Detected (NotDetected); NDM Resistant Gene Not Detected (NotDetected); OXA 48 Like Resistant Gene Not Detected (NotDetected); P aeruginosa Not Reported Not Detected (NotDetected); Proteus spp Not Reported Not Detected (NotDetected); Salmonella spp Not Reported Not Detected (NotDetected); Staph lugdunensis Not Reported Not Detected (NotDetected); Staph spp. Not Reported Not Detected (NotDetected); Staphaureus Not Reported Not Detected (NotDetected); Staphepi Not Reported Not Detected (NotDetected); Stenmaltophilia Not Reported Not Detected (NotDetected); Strep agal(GrpB) Not Reported Not Detected (NotDetected); Strep pneum Not Reported Not Detected (NotDetected); Strep pyog (GrpA) Not Reported Not Detected (NotDetected); Strep spp Not Reported Not Detected (NotDetected); VIM Resistant Gene Not Detected (NotDetected); mcr-1 Colistin Resistant Gene Not Detected (NotDetected)
[2023-10-24 03:30] LABS: CTX-M Resistant Gene DETECTED (NotDetected)
[2023-10-24] MEDS: PIPERACILLIN/TAZOBACTAM 4.5 GM in DEXTROSE 5% MINI-B 100 ML IV SCH (03:59)
--- OUTSIDE RECORDS SUMMARY | 2023-10-24 04:17 | External Medical Summary | Summary of Care ---
Author Name Unknown Organization [facility] Address [address] [place] [address] Phone [phone] Care Team Providers Care Customer Development Representative Name Role Phone Lizette ARCEO MD, Girish Wright Primary Care Pr ovider Reason for Visit * Reason Onset Date Comments Appointment 10/23/2023 Haley Augustine Encounter Details Date Type Department Care Team (Late st Contact Info) Description 10/23/2023 Telephone Hematology/Oncology [facility] [address] [place] [address] Services, Scheduling [address] [place] [address] Appointment (Haley Augustine) Allergies Active Allergy Reactions Criticality Noted Date Comments Aspirin Anaphylaxis High 08/28/2023 Duloxetine High 11/18/2020 Other Reaction(s): Rash Lisinopril 06/21/2006 cough Nsaids 07/03/2023 Salicylates Swelling documented as of this encounter (statuses as of 10/23/2023) Medications Medication Sig Dispensed Refills Start Date [...] eye. Every 2 hours 06/04/2023 Active Nystop 644361 UNIT/GM External Powder 05/14/2023 Active Ondansetron HCl [...] g by mouth in the morning. Active Cefpodoxime Proxetil 200 MG Oral Tablet Take 1 Tablet by mouth in the morning and 1 Tablet in the evening. 10/03/2023 Active documented as of this encounter (statuses as of 10/23/2023) Active Problems Problem Noted Date Diagnosed Date [...] 04/02/2017 Persistent insomnia 10/21/2015 Rheumatoid arthritis of [facility] without rheumatoid factor 09/08/2015 Encounter for [...] as of this encounter (statuses as of 10/23/2023) Resolved Problems Problem Noted Date Diagnosed Date [...] of hypertension 10/21/2015 06/20/[address] [facility] sites with negative rheumatoid factor 07/09/2015 09/08/2015 [...] as of this encounter (statuses as of 10/23/2023) Immunizations Name Administration Dates Next Due COVID-19 mRNA, LNP-s, No Pre serve, 2-Dose Series ([employer]) 12/21/2020,05/21/2020,04/30/2020 COVID-19, mRNA, LNR-S, Bival ent, PF, [...] encounter Miscellaneous Notes * Telephone Encounter - Eddie Burgos OSA - 10/23/2023 10:14 AM EDT LMOM for [facility] 10/23/23 to r/s pt * Telephone Encounter - Sung Ackerman OSA - 10/23/2023 10:04 AM EDT Call received from [facility] calling in to cancel/reschedule appointments scheduled for today due to illness. Please call [facility] at [phone] ext [phone] to assist with rescheduling. Thanks documented in this encounter Plan of Treatment Upcoming Encounters Date Type Department Care Team (Late st Contact Info) Description 10/30/2023 9:30 AM EDT Laboratory Laboratory [facility] [place] [address] [place] [phone] [facility] [address] [facility] [place] [address] 10/30/2023 10:30 AM EDT Immunization/Injecti on Hematology/Oncology Treatment, [place] [address] [facility] [place] [phone] 12/03/2023 2:00 PM EDT Office Visit Hematology/Oncology [facility] [place] [address] [facility] [place] [phone] Leisa Augustine CRNP [address] [place] [address] [place] [address] 12/13/2023 9:30 AM EDT Office Visit Rheumatology [place] [phone] [employer] [place], [place] [address] Nadir Sawyer PA-C [address] [place], [place] [address] 06/17/2024 1:40 PM EDT Office Visit Nephrology, [facility] [address] [facility] [place], [place] [address] Devaughn Ferrer MD [address] [facility] [place], [place] [address] Health Maintenance Due Date Last Done Comments [...] filedocumented as of this encounter Care Teams Customer Development Representative Relationship Specialty Start Date End Date Girish Bauer III, MD [address] [place] [address] PCP - General Internal Medicine 01/12/23 documented as of this encounter
[2023-10-24 05:34] LABS: Albumin Globulin Ratio 1.1 (0.9-2); Albumin Level 2.9 gm/dl (3.4-5.0); BUN Creatinine Ratio 21.3 (10-20); Bilirubin,Total 1.3 mg/dl (0.2-1.0); Calcium 7.8 mg/dl (8.6-10.3); Chol HDL Ratio 3.8 (0-5); Creatinine Clr Calc Pharmacy 17.1 ml/min; Est GFR (African American) 20.5 ml/min; Est GFR (Non-African American) 17.6 ml/min; Globulin 2.7 gm/dl (2.5-4.0); Magnesium 2.3 mg/dl (1.7-2.4); Potassium 4.1 mmol/L (3.5-5.1); Total Protein 5.6 gm/dl (6.0-8.3)
[2023-10-24 05:44] LABS: Hematocrit (blood only) 24.9 % (37.0-47.0); Hemoglobin 7.7 g/dl (12.0-16.0); Mean Corpuscular Hemoglobin 30.6 pg (25.0-34.0); Mean Corpuscular Hgb Conc 30.9 g/dL (32.0-36.0); Mean Corpuscular Volume 98.8 fL (80.0-100.0); Mean Platelet Volume 9.5 fL (9.4-12.4); Platelet Count 127 K/uL (130-400); RDW Coefficient of Variation 16.2 % (11.5-14.5); Red Blood Count 2.52 M/uL (4.20-5.40); White Blood Count 34.12 K/ul (4.8-10.8)
[2023-10-24 05:47] LABS: ALC (manual) 1.02 K/uL (1.2-3.4); ANC (manual) 32.41 K/uL (1.4-6.5); Dohle Bodies 1+; Lymphocytes # (manual) 1.02 K/uL (1.2-3.4); Lymphocytes % (manual) 3 %; Metamyelocytes # (manual) 0.34 K/uL (0-0); Metamyelocytes % (manual) 1 %; Monocytes # (manual) 0.34 K/uL (0.11-0.59); Monocytes % (manual) 1 %; Neutrophils # (manual) 32.41 K/uL (1.40-6.50); Neutrophils % (manual) 95 %; Toxic Vacuolation 1+
[2023-10-24 05:48] LABS: Thyroid Stimulating Hormone 1.304 uIu/ml (0.300-4.500)
[2023-10-24] MEDS: LEVOTHYROXINE SODIUM 75 MCG TABLET PO SCH (06:11)
[2023-10-24] MEDS: LORATADINE 10 MG TAB PO SCH (08:23)
[2023-10-24] MEDS: IRON POLYSACCHARIDE COMPLEX 150 MG CAPSULE PO SCH (08:23)
[2023-10-24] MEDS: PANTOprazole 40 MG TAB PO SCH (08:24)
[2023-10-24] MEDS: MEROPENEM 500 MG in SYRINGE 0 ML IV SCH (08:26)
[2023-10-24] MEDS ORDERED: VENLAFAXINE HCL XR 150 MG CAPXR PO SCH (09:00)
[2023-10-24] MEDS ORDERED: LOSARTAN POTASSIUM 50 MG TAB PO SCH (09:00)
[2023-10-24] MEDS ORDERED: predniSONE 5 MG TAB PO SCH (09:00)
[2023-10-24] MEDS ORDERED: amLODIPine BESYLATE 5 MG TAB PO SCH (09:00)
[2023-10-24] MEDS ORDERED: ESCITALOPRAM OXALATE 20 MG TAB PO SCH (09:00)
[2023-10-24] MEDS: VANCOMYCIN HCL 750 MG in SODIUM CHLORIDE 0.9% 250 ML IV ONE (09:14)
--- NOTE | 2023-10-24 09:54 | Critical Care Progress Note ---
Date of Service October 24, 2023 Assessment & Plan (1) Septic shock: Plan: Reason Critically Ill: 82-year-old female with extensive past medical history presents to the ICU with septic shock requiring vasopressor support likely from pulmonary source. Neuro - AMSimproved Peripheral neuropathyNeurontin and Oxycodone on hold due to encephalopathy Cardiac - Septic shockresolved, has remained off vasoactive's Respiratory - Acute hypoxemic respiratory failurelikely in the setting of underlying multifocal pneumonia -Minimal supplemental oxygen decrease as tolerated -Doubtful that this represents necrotic MRSA pneumonia as patient has rapid improvement GI - GERDfamotidine RENAL/LYTES - CKD stage IIIcreatinine currently at 2.4 appears to be consistent with previous admissions. Continue to monitor - Foleystrict I's and O's ENDO - Hypothyroidismcontinue Synthroid Rheumatoid arthritisprednisone on hold in favor of IV hydrocortisone in the setting of septic shock HEME - AnemiaH&H currently at baseline at 8.8. Monitor routine CBC and transfuse as indicated -History of systemic anticoagulation on Xarelto given history of DVT ID - Sepsisl multiple possible sources -Discontinuing vancomycin, significant improvement in oxygenation I do not feel this represents a necrotic pneumonia, this does not represent community- acquired pneumonia, healthcare associated given she is a long-term care facility resident. Further I think this is hematogenous spread of the same organism, however we will continue meropenem for pseudomonal coverage until we have formal speciation and resistance patterns. LINES/IV ACCESS - Peripheral IVs CODE STATUS: DNR/DNI ICU needs have largely resolved given that she has been off vasoactive medications greater than 8 hours (2) Pneumonia: (3) Essential hypertension: (4) Metabolic encephalopathy: (5) Acute respiratory failure with hypoxia: (6) Hypothyroidism: Admission and Anticipated Discharge Date Admission Date: October 23, 2023 Results & Data Results & Data Vital Signs (Past 12 Hours) Vital Signs Temp Pulse Resp BP Pulse Ox O2 Del Method O2 Flow Rate 10/24/23 08:51 Nasal Cannula 2 10/24/23 08:03 36.8 C 86 15 92 10/24/23 08:00 106/60 10/24/23 08:00 80 10/24/23 07:03 36.7 C 86 20 92 10/24/23 07:00 111/64 10/24/23 06:00 36.7 C 84 19 119/95 93 Room Air 10/24/23 05:00 36.7 C 85 14 121/64 93 Nasal Cannula 2 10/24/23 04:30 113/68 10/24/23 04:00 36.7 C 83 17 126/59 L 93 Nasal Cannula 2 10/24/23 03:30 123/74 10/24/23 03:00 36.5 C 80 18 115/66 91 Nasal Cannula 2 10/24/23 02:45 112/67 10/24/23 02:30 115/63 10/24/23 02:15 117/66 10/24/23 02:00 36.7 C 75 15 109/70 92 Nasal Cannula 2 10/24/23 01:45 96/55 L 10/24/23 01:33 36.8 C 75 16 92 10/24/23 01:30 98/60 L 10/24/23 01:15 95/55 L 10/24/23 01:00 36.8 C 78 17 108/61 93 Nasal Cannula 3 10/24/23 00:45 106/60 10/24/23 00:30 97/46 L 10/24/23 00:15 102/57 L 10/24/23 00:00 37.3 C 82 20 106/61 92 Nasal Cannula 3 10/24/23 00:00 82 10/23/23 23:45 107/61 10/23/23 23:30 89/46 L 10/23/23 23:15 77 17 84/44 L 91 Nasal Cannula 3 10/23/23 23:00 37.6 C H 78 17 86/46 L 92 Nasal Cannula 3 10/23/23 22:45 92/48 L 10/23/23 22:45 92/48 L 10/23/23 22:45 81 17 92/48 L 92 Nasal Cannula 3 10/23/23 22:30 37.7 C H 88 19 110/57 L 93 Nasal Cannula 4 10/23/23 22:15 37.8 C H 88 22 105/51 L 92 Nasal Cannula 4 10/23/23 22:00 37.9 C H 86 21 91/73 L 94 Nasal Cannula 4 Coding Level of Care Code 81769 SUB INP/OBS CARE 2/35MIN Diagnoses Septic shock A41.9; R65.21 Pneumonia J18.9 Essential hypertension I10 Metabolic encephalopathy G93.41 Acute respiratory failure with hypoxia J96.01 Hypothyroidism E03.9
--- NOTE | 2023-10-24 13:21 | Hospitalist Progress Note ---
Date of Service October 24, 2023 Assessment & Plan (1) Septic shock: Plan: +/- adrenal shock (on chronic prednisone therapy for RA) shock improved s/p pressors, stress-dose steroids, and IV fluids since admission now off pressors hydrocortisone weaned from 100mg to 50mg TID cont IV fluids + IV abx (2) Pneumonia: Plan: b/l, as seen on imaging gram negative pneumonia vs aspiration doubt MRSA pneumonia although can't be ruled out 100% either way I agree with meropenem IV until results of blood cx's are available (3) Metabolic encephalopathy: Plan: 2nd to septic shock/bacteremia supportive care (4) Gram-negative bacteremia: Plan: admission blood cx's positive for such cont meropenem IV await final results source - urine vs pneumonia vs both (5) UTI (urinary tract infection): Plan: GNR present cont meropenem await culture results (6) Rheumatoid arthritis: Plan: on chronic prednisone for such follows with Dr [facility] (7) Hypothyroidism: Plan: TSH wnl cont synthroid (8) Steroid dependence: Plan: prednisone - for RA hold PO prednisone while on IV hydrocortisone (9) DVT (deep venous thrombosis): Plan: history of such on Xarelto chronically with CKD will change to Eliquis 2.5mg BID (10) Chronic kidney disease, stage IV (severe): Plan: baseline CrCl 15-30 BMP daily while here (11) Elevated troponin: Plan: no evidence of ACS likely myocardial demand ischemia in setting of septic shock/bacteremia Plan PT, OT evals can downgrade out of ICU to med-tele Admission and Anticipated Discharge Date Admission Date: October 23, 2023 Subjective events of overnight noted pressors weaned off early this am patient confused during the visit, and was easily falling asleep during the encounter at one point she said "call my sister in law - she will tell you" unable to provide any meaningful history or ROS staff report she is eating well they, too, have noted ongoing confusion Review of Systems Review of Systems: Unobtainable due to cognitive status Physical Exam Physical Exam: gen - confused, looks ill, fell asleep while I was talking with her mouth - lips/ MM very dry neck - no JVD heart - RRR, s1 s2, 2/6 PEDRO LSB lungs - rales R base, no increased work of breathing abd - soft NT ND BS+ ext - no edema, pulses 1-2+ b/l, cap refill about 3 seconds b/l feet psych - oriented to person only skin - generalized pallor; no rash Results & Data Results & Data Vital Signs (Past 12 Hours) Vital Signs Temp Pulse Resp BP Pulse Ox O2 Del Method O2 Flow Rate 10/24/23 12:00 36.7 C 90 18 10/24/23 12:00 141/79 H 10/24/23 11:06 36.7 C 87 21 89 L 10/24/23 11:00 131/73 10/24/23 10:12 36.7 C 87 23 90 10/24/23 10:00 119/63 10/24/23 09:00 36.7 C 84 20 92 10/24/23 09:00 110/65 10/24/23 08:51 Nasal Cannula 2 10/24/23 08:03 36.8 C 86 15 92 10/24/23 08:00 106/60 10/24/23 08:00 80 10/24/23 07:03 36.7 C 86 20 92 10/24/23 07:00 111/64 10/24/23 06:00 36.7 C 84 19 119/95 93 Room Air 10/24/23 05:00 36.7 C 85 14 121/64 93 Nasal Cannula 2 10/24/23 04:30 113/68 10/24/23 04:00 36.7 C 83 17 126/59 L 93 Nasal Cannula 2 10/24/23 03:30 123/74 10/24/23 03:00 36.5 C 80 18 115/66 91 Nasal Cannula 2 10/24/23 02:45 112/67 10/24/23 02:30 115/63 10/24/23 02:15 117/66 10/24/23 02:00 36.7 C 75 15 109/70 92 Nasal Cannula 2 10/24/23 01:45 96/55 L 10/24/23 01:33 36.8 C 75 16 92 10/24/23 01:30 98/60 L Laboratory Results Laboratory Results - last 24 hr 10/23/23 10/24/23 10/24/23 15:15 04:47 06:55 WBC 34.12 H* D RBC 2.52 L Hgb 7.7 L Hct 24.9 L MCV 98.8 MCH 30.6 MCHC 30.9 L RDW Std Deviation 59.0 H RDW Coeff of Mario 16.2 H Plt Count 127 L MPV 9.5 Neutrophils % (Manual) 95 Lymphocytes % (Manual) 3 Monocytes % (Manual) 1 Metamyelocytes % (Man) 1 Neutrophils # (Manual) 32.41 H Total Absolute Neuts 32.41 H Lymphocytes # (Manual) 1.02 L Total Abs Lymphocytes 1.02 L Monocytes # (Manual) 0.34 Metamyelocytes # (Man) 0.34 H Toxic Vacuolation 1+ Dohle Bodies 1+ Sodium 140 Potassium 4.1 Chloride 108 H Carbon Dioxide 21 Anion Gap 11 BUN 53 H Creatinine 2.49 H Est Cr Clr Drug Dosing 17.1 Est GFR ( Amer) 20.5 Est GFR (Non-Af Amer) 17.6 BUN/Creatinine Ratio 21.3 H Glucose 167 H POC Glucose Lactate 2.5 H* Calcium 7.8 L Magnesium 2.3 Total Bilirubin 1.3 H AST 20 ALT 14 Alkaline Phosphatase 81 Total Protein 5.6 L Albumin 2.9 L Globulin 2.7 Albumin/Globulin Ratio 1.1 Triglycerides 196 H Cholesterol 109 LDL Cholesterol, Calc 41 VLDL Cholesterol, Calc 39 H HDL Cholesterol 29 Cholesterol/HDL Ratio 3.8 TSH 1.304 Random Vancomycin 13.6 Enterobacterales (PCR) DETECTED A E. coli (PCR) DETECTED A mcr-1 Colistin Res Gene PCR Not Detected blaIMP Car res Gene PCR Not Detected KPC-Carbap Res Gene PCR Not Detected blaNDM Car Res Gene PCR Not Detected OXA-48 Carbapenem Resis Gene (PCR) Not Detected blaVIM Car Res Gene PCR Not Detected CTX-M Gene Resistance (PCR) DETECTED A* Bld Cult ID Panel PCR See PCR Comment 10/24/23 08:59 WBC RBC Hgb Hct MCV MCH MCHC RDW Std Deviation RDW Coeff of Mario Plt Count MPV Neutrophils % (Manual) Lymphocytes % (Manual) Monocytes % (Manual) Metamyelocytes % (Man) Neutrophils # (Manual) Total Absolute Neuts Lymphocytes # (Manual) Total Abs Lymphocytes Monocytes # (Manual) Metamyelocytes # (Man) Toxic Vacuolation Dohle Bodies Sodium Potassium Chloride Carbon Dioxide Anion Gap BUN Creatinine Est Cr Clr Drug Dosing Est GFR ( Amer) Est GFR (Non-Af Amer) BUN/Creatinine Ratio Glucose POC Glucose 179 H Lactate Calcium Magnesium Total Bilirubin AST ALT Alkaline Phosphatase Total Protein Albumin Globulin Albumin/Globulin Ratio Triglycerides Cholesterol LDL Cholesterol, Calc VLDL Cholesterol, Calc HDL Cholesterol Cholesterol/HDL Ratio TSH Random Vancomycin Enterobacterales (PCR) E. coli (PCR) mcr-1 Colistin Res Gene PCR blaIMP Car res Gene PCR KPC-Carbap Res Gene PCR blaNDM Car Res Gene PCR OXA-48 Carbapenem Resis Gene (PCR) blaVIM Car Res Gene PCR CTX-M Gene Resistance (PCR) Bld Cult ID Panel PCR PG Care Time/CCT Total # of Minutes Spent Total Time Spent with Patient: Total time spent is greater than 50% in coordination of care (as documented) at patient's floor/unit and/or counseling patient: Coding Level of Care Code 18258 SUB INP/OBS CARE 235MIN Diagnoses Septic shock A41.9; R65.21 Pneumonia J18.9 Metabolic encephalopathy G93.41 Gram-negative bacteremia R78.81 UTI (urinary tract infection) N39.0 Rheumatoid arthritis M06.9 Rheumatoid arthritis location: unspecified site Rheumatoid factor presence: unspecified presence Hypothyroidism E03.9 Steroid dependence F19.20 DVT (deep venous thrombosis) I82.409 Chronic kidney disease, stage IV (severe) N18.4 Elevated troponin R77.8 (6) Rheumatoid arthritis Rheumatoid arthritis location: unspecified site Rheumatoid factor presence: unspecified presence Qualified Code(s): M06.9 - Rheumatoid arthritis, unspecified
[2023-10-24] MEDS: HYDROCORTISONE SOD 50 MG in SYRINGE 0 ML IV SCH (13:42)
[2023-10-24] MEDS ORDERED: RIVAROXABAN 20 MG TAB PO SCH (16:30)
[2023-10-24] MEDS: SODIUM CHLORIDE 0.9% 1,000 ML IV SCH (22:11)
[2023-10-24] MEDS: ACETAMINOPHEN 325 MG TAB PO PRN (22:12)
[2023-10-24] MEDS: APIXABAN 2.5 MG TAB PO SCH (22:21)
[2023-10-24] MEDS: ONDANSETRON INJ 2 MG/ML 2 ML VIAL IV PRN (22:32)
[2023-10-25] MEDS: MICONAZOLE NITRATE POWDER 85 GM EXT PRN (06:16)
[2023-10-25 09:42] LABS: BUN Creatinine Ratio 22.8 (10-20); Calcium 8.7 mg/dl (8.6-10.3); Creatinine Clr Calc Pharmacy 21.7 ml/min; Est GFR (African American) 27.1 ml/min; Est GFR (Non-African American) 23.4 ml/min; Potassium 3.6 mmol/L (3.5-5.1)
[2023-10-25 10:06] LABS: Hematocrit (blood only) 28.1 % (37.0-47.0); Hemoglobin 8.9 g/dl (12.0-16.0); Mean Corpuscular Hemoglobin 30.3 pg (25.0-34.0); Mean Corpuscular Hgb Conc 31.7 g/dL (32.0-36.0); Mean Corpuscular Volume 95.6 fL (80.0-100.0); Mean Platelet Volume 10.1 fL (9.4-12.4); Platelet Count 124 K/uL (130-400); RDW Coefficient of Variation 15.9 % (11.5-14.5); RDW Standard Deviation 56.1 fL (36.4-46.3); Red Blood Count 2.94 M/uL (4.20-5.40); White Blood Count 39.61 K/ul (4.8-10.8)
[2023-10-25] MEDS: ERTAPENEM SODIUM 500 MG in SYRINGE 0 ML IV SCH (10:51)
--- NOTE | 2023-10-25 15:55 | Hospitalist Progress Note ---
Date of Service October 25, 2023 Assessment & Plan (1) Septic shock: Plan: +/- adrenal shock (on chronic prednisone therapy for RA) shock resolved required pressors HD #1 only in the ICU remains on stress-dose steroids - wean today cont IV abx (2) Pneumonia: Plan: b/l WORSE clinically (increasing O2 requirement) and radiographically gram negative pneumonia vs aspiration MRSA [employer] swab is + thus MRSA pneumonia possible - especially with worsening WBC count and worsening cxr add zyvox 600mg IV BID changing meropenem to ertapenem to cover ESBL e.coli in the blood/urine lasix IV x 1 now in the event she has some element of volume overload contributing to clinical picture check BNP am (3) Metabolic encephalopathy: Plan: 2nd to septic shock/bacteremia/UTI/pneumonia supportive care avoid sedatives restraints have been needed due to pulling at IVs, etc (4) Gram-negative bacteremia: Plan: 2nd ESBL ecoli change meropenem IV to IV ertapenem source - urine +/- pneumonia (5) UTI (urinary tract infection): Plan: 2nd ESBL e.coli change meropenem to ertapenem (6) Rheumatoid arthritis: Plan: on chronic prednisone for such follows with Dr [facility] Rheum weaning IV hydrocortisone (7) Hypothyroidism: Plan: TSH wnl cont synthroid (8) Steroid dependence: Plan: prednisone - for RA hold PO prednisone while on IV hydrocortisone (9) DVT (deep venous thrombosis): Plan: history of such on Xarelto chronically with CKD changed to Eliquis 2.5mg BID (10) Chronic kidney disease, stage IV (severe): Plan: baseline CrCl 15-30 BMP daily while here Creatinine has improved during the stay with supportive care (11) Elevated troponin: Plan: no evidence of ACS likely myocardial demand ischemia in setting of septic shock/bacteremia Plan at baseline is lift dependent; PT/OT ordered but likely cannot participate due to altered MS and poor baseline functional status updated pt's brother by phone this evening extensively Admission and Anticipated Discharge Date Admission Date: October 23, 2023 Subjective patient very confused during the visit awake, but staring out the window and very weak was unable to tell me where she was could not provide any meaningful history or ROS staff report very poor intake o2 requirements also modestly worse today tele stable overnight Review of Systems Review of Systems: Unobtainable due to cognitive status Physical Exam Physical Exam: gen - confused, awake but staring out the window; looks ill mouth - lips/ MM remain dry neck - no JVD heart - RRR, s1 s2, 2/6 PEDRO LSB lungs - decreased BS R base, rales anterior right chest, slight rales L base, no increased work of breathing abd - soft NT ND BS+ ext - trace edema b/l feet, pulses 1-2+ b/l psych - oriented to person only skin - generalized pallor Results & Data Results & Data Vital Signs (Past 12 Hours) Vital Signs Temp Pulse Pulse Resp BP Pulse Ox O2 Del Method 10/25/23 14:26 90 10/25/23 10:07 Nasal Cannula 10/25/23 07:34 36.5 C 87 18 149/71 H 91 Nasal Cannula 10/25/23 07:21 96 H O2 Flow Rate 10/25/23 14:26 10/25/23 10:07 4 10/25/23 07:34 4 10/25/23 07:21 Laboratory Results Laboratory Results - last 24 hr 10/24/23 10/24/23 10/25/23 06:55 08:59 09:07 WBC 39.61 H* RBC 2.94 L Hgb 8.9 L Hct 28.1 L MCV 95.6 MCH 30.3 MCHC 31.7 L RDW Std Deviation 56.1 H RDW Coeff of Mario 15.9 H Plt Count 124 L MPV 10.1 Sodium 144 Potassium 3.6 Chloride 111 H Carbon Dioxide 23 Anion Gap 10 BUN 45 H Creatinine 1.97 H D Est Cr Clr Drug Dosing 21.7 Est GFR ( Amer) 27.1 Est GFR (Non-Af Amer) 23.4 BUN/Creatinine Ratio 22.8 H Glucose 138 H POC Glucose 179 H Calcium 8.7 Random Vancomycin 13.6 Diagnostic Findings cxr - my reading - worsening b/l infiltrates especially on the right - diffuse infiltrates on right PG Care Time/CCT Total # of Minutes Spent Total Time Spent with Patient: Total time spent is greater than 50% in coordination of care (as documented) at patient's floor/unit and/or counseling patient: Coding Level of Care Code 84704 SUB INP/OBS CARE 3/50MIN Diagnoses Septic shock A41.9; R65.21 Pneumonia J18.9 Metabolic encephalopathy G93.41 Gram-negative bacteremia R78.81 UTI (urinary tract infection) N39.0 Rheumatoid arthritis M06.9 Rheumatoid arthritis location: unspecified site Rheumatoid factor presence: unspecified presence Hypothyroidism E03.9 Steroid dependence F19.20 DVT (deep venous thrombosis) I82.409 Chronic kidney disease, stage IV (severe) N18.4 Elevated troponin R77.8 (6) Rheumatoid arthritis Rheumatoid arthritis location: unspecified site Rheumatoid factor presence: unspecified presence Qualified Code(s): M06.9 - Rheumatoid arthritis, unspecified
[2023-10-25] MEDS: HYDROCORTISONE SOD 25 MG in SYRINGE 0 ML IV SCH (16:07)
[2023-10-25] MEDS: LACTATED RINGER'S 1,000 ML IV SCH (17:02)
[2023-10-25] MEDS: LINEZOLID 600 MG/300 ML BAG IV SCH (20:35)
[2023-10-25] MEDS: LORazepam 0.5 MG in SYRINGE 0.25 ML IV ONE (21:10)
[2023-10-25] MEDS ORDERED: ALBUT/IPRATROP 3MG/0.5MG NEB 3 ML VIAL NEB PRN (23:08)
[2023-10-25] MEDS: FUROSEMIDE INJ 20 MG/2 ML VIAL IV ONE (23:32)
[2023-10-26 06:17] LABS: BUN Creatinine Ratio 21.1 (10-20); Calcium 8.7 mg/dl (8.6-10.3); Creatinine Clr Calc Pharmacy 24.4 ml/min; Est GFR (African American) 31.3 ml/min; Potassium 3.1 mmol/L (3.5-5.1)
[2023-10-26 06:27] LABS: Hematocrit (blood only) 27.9 % (37.0-47.0); Hemoglobin 8.7 g/dl (12.0-16.0); Mean Corpuscular Hemoglobin 29.9 pg (25.0-34.0); Mean Corpuscular Hgb Conc 31.2 g/dL (32.0-36.0); Mean Corpuscular Volume 95.9 fL (80.0-100.0); Mean Platelet Volume 10.1 fL (9.4-12.4); Platelet Count 135 K/uL (130-400); RDW Coefficient of Variation 15.6 % (11.5-14.5); RDW Standard Deviation 54.8 fL (36.4-46.3); Red Blood Count 2.91 M/uL (4.20-5.40); White Blood Count 37.28 K/ul (4.8-10.8)
[2023-10-26] MEDS: SODIUM CHLOR 7% 4 ML NEB NEB SCH (06:55)
--- NOTE | 2023-10-26 07:12 | XRay Report ---
XR chest 1V portable CLINICAL HISTORY: pneumonia, interval change TECHNIQUE: Single frontal radiograph of the chest was obtained. Comparison: Comparison is made to chest radiograph 10/23/2023 FINDINGS: No lines and tubes are seen. Cardiomegaly is noted. Multifocal airspace opacities are seen. No pneumo thorax is seen, pleural effusions cannot be excluded. IMPRESSION: Interval increase in multifocal airspace opacities compatible with worsening pneumonia. ACT 112: Negative or not required by law. Electronically signed by: Gui Coy M.D. 10/26/2023 7:10 AM
--- NOTE | 2023-10-26 07:42 | XRay Report ---
XR chest 1V portable CLINICAL HISTORY: worsening b/l infiltrates TECHNIQUE: Single frontal radiograph of the chest was obtained. Comparison: Comparison is made to chest radiograph 10/25/2023 FINDINGS: No lines and tubes are seen. Cardiomegaly is noted. Multifocal airspace opacities are seen. Cannot ex clude a trace right pleural effusion. IMPRESSION: Multifocal airspace opacities may represent atelectasis, pneumonia, and/or aspiration. Overall extent is similar to minimally decreased from prior exam. ACT 112: Negative or not required by law. Electronically signed by: Gui Coy M.D. 10/26/2023 7:41 AM
[2023-10-26] MEDS: FUROSEMIDE INJ 20 MG/2 ML VIAL IV ONE (08:11)
[2023-10-26] MEDS: POTASSIUM CHLORIDE CRTAB 20 MEQ TABCR PO STA (08:12)
[2023-10-26] MEDS: carvediloL 6.25 MG TAB PO SCH (11:00)
[2023-10-26] MEDS: POTASSIUM CHLORIDE CRTAB 20 MEQ TABCR PO SCH (12:49)
--- NOTE | 2023-10-26 18:16 | Hospitalist Progress Note ---
Date of Service October 26, 2023 Assessment & Plan (1) Septic shock: Plan: +/- adrenal shock (on chronic prednisone therapy for RA) shock resolved required pressors HD #1 only in the ICU remains on stress-dose steroids - again wean today cont IV abx septic shock 2nd to pneumonia/UTI (2) Pneumonia: Plan: b/l, R>L gram negative pneumonia vs aspiration vs MRSA pneumonia ([employer] swab is + thus MRSA pneumonia possible - especially with severe leukocytosis and radiographic worsening of pneumonia) cont zyvox 600mg IV BID - day #2 of such cont ertapenem to cover ESBL e.coli in the blood/urine - day #2 of ertapenem, previously was on meropenem for 36 hours (3) Metabolic encephalopathy: Plan: 2nd to septic shock/bacteremia/UTI/pneumonia improved today cont supportive care avoid sedatives restraints have been needed intermittently due to pulling at IVs, etc; these were stopped/removed this am; trial off of them (4) Gram-negative bacteremia: Plan: 2nd ESBL ecoli cont IV ertapenem source - urine +/- pneumonia (5) UTI (urinary tract infection): Plan: 2nd ESBL e.coli cont ertapenem - day #2 of such; previously was on meropenem for ~36 hours (6) Rheumatoid arthritis: Plan: on chronic prednisone for such follows with [facility] weaning IV hydrocortisone - change 25mg TID dosing to BID dosing (7) Hypothyroidism: Plan: TSH wnl cont synthroid (8) Steroid dependence: Plan: prednisone - for RA hold PO prednisone while on IV hydrocortisone (9) DVT (deep venous thrombosis): Plan: history of such on Xarelto chronically with CKD changed to Eliquis 2.5mg BID (10) Chronic kidney disease, stage IV (severe): Plan: baseline CrCl 15-30 BMP daily while here Creatinine has actually improved during the stay with supportive care (11) Elevated troponin: Plan: no evidence of ACS likely myocardial demand ischemia in setting of septic shock/bacteremia (12) Acute heart failure with preserved ejection fraction (HFpEF): Plan: s/p IV lasix overnight with improved pulmonary status and copious diuresis BNP is much more elevated above baseline today (1438, was <500 in September) will give another dose of IV lasix today re-eval tomorrow (13) Pulmonary HTN: Plan: severe on echo 09/2023 etiology? (14) Hypernatremia: Plan: patient total body volume overloaded but with water deficit drink as tolerated bmp in am defer on hypotonic fluids in light of #12 (15) Hypokalemia: Plan: replace repeat BMP am Plan chronic medical issues - * neuropathy - resume gabapentin 300mg TID tomorrow am * HTN - as #1 is resolved and BPs have climbed higher resume her coreg 6.25mg BID today at baseline is lift dependent; PT/OT ordered but likely cannot participate due to poor baseline functional status and weakness from her severe illness updated pt's brother by phone 10/25/23 Admission and Anticipated Discharge Date Admission Date: October 23, 2023 Subjective tele overnight wnl did require soft mitts again overnight on hands for safety concerns and agitation however, this am, much more calm and awake/alert knew it was 2023 and knew she was at "[facility]" denies any cough denies any dyspnea had COPIOUS Urine output s/p lasix IV last pm after cxr showed significantly worsened infiltrates R>L on cxr does c/o neuropathy in both legs and both feet - severe at times appetite remains very poor Review of Systems Review of Systems: CV - no chest pain pulm - no dyspnea at rest gen - feels very weak; asks "when can I go home?" GI - no abd pain; no N/V Physical Exam Physical Exam: gen - more awake/alert/oriented today; no agitation; looks generally much better today but still weak-appearing mouth - lips/ MM remain very dry neck - no JVD heart - RRR, s1 s2, 2/6 PEDRO LSB lungs - rales R base extending 1/3 to 1/[address] up right hemithorax; minimal L basilar rales; no wheeze; no increased work of breathing abd - soft NT ND BS+ ext - no edema b/l feet, pulses 1-2+ b/l psych - oriented to person, place, year skin - generalized pallor Results & Data Results & Data Vital Signs (Past 12 Hours) Vital Signs Temp Pulse Pulse Resp BP Pulse Ox O2 Del Method 10/26/23 15:23 82 10/26/23 14:54 36.5 C 79 22 161/81 H 90 Nasal Cannula 10/26/23 11:15 36.3 C L 84 18 167/82 H 93 Nasal Cannula 10/26/23 09:02 Nasal Cannula 10/26/23 07:22 36.5 C 87 18 174/83 H 96 Nasal Cannula 10/26/23 07:14 84 10/26/23 07:02 87 20 93 Nasal Cannula O2 Flow Rate 10/26/23 15:23 10/26/23 14:54 4 10/26/23 11:15 4 10/26/23 09:02 6 10/26/23 07:22 4 10/26/23 07:14 10/26/23 07:02 6 Laboratory Results Laboratory Results - last 24 hr 10/26/23 05:46 WBC 37.28 H* RBC 2.91 L Hgb 8.7 L Hct 27.9 L MCV 95.9 MCH 29.9 MCHC 31.2 L RDW Std Deviation 54.8 H RDW Coeff of Mario 15.6 H Plt Count 135 MPV 10.1 Sodium 147 H Potassium 3.1 L Chloride 110 H Carbon Dioxide 27 Anion Gap 10 BUN 37 H Creatinine 1.75 H Est Cr Clr Drug Dosing 24.4 Est GFR ( Amer) 31.3 Est GFR (Non-Af Amer) 27.0 BUN/Creatinine Ratio 21.1 H Glucose 114 H Lactate 1.7 Calcium 8.7 B-Natriuretic Peptide 1438 H Diagnostic Findings Chest X-Ray 10/25/23 18:56 XR chest 1V portable CLINICAL HISTORY: pneumonia, interval change TECHNIQUE: Single frontal radiograph of the chest was obtained. Comparison: Comparison is made to chest radiograph 10/23/2023 FINDINGS: No lines and tubes are seen. Cardiomegaly is noted. Multifocal airspace opacities are seen. No pneumothorax is seen, pleural effusions cannot be excluded. IMPRESSION: Interval increase in multifocal airspace opacities compatible with worsening pneumonia. ACT 112: Negative or not required by law. Electronically signed by: Gui Coy M.D. 10/26/2023 7:10 AM Chest X-Ray 10/26/23 07:19 XR chest 1V portable CLINICAL HISTORY: worsening b/l infiltrates TECHNIQUE: Single frontal radiograph of the chest was obtained. Comparison: Comparison is made to chest radiograph 10/25/2023 FINDINGS: No lines and tubes are seen. Cardiomegaly is noted. Multifocal airspace opacities are seen. Cannot exclude a trace right pleural effusion. IMPRESSION: Multifocal airspace opacities may represent atelectasis, pneumonia, and/or aspiration. Overall extent is similar to minimally decreased from prior exam. ACT 112: Negative or not required by law. Electronically signed by: Gui Coy M.D. 10/26/2023 7:41 AM PG Care Time/CCT Total # of Minutes Spent Total Time Spent with Patient: Total time spent is greater than 50% in coordination of care (as documented) at patient's floor/unit and/or counseling patient: Coding Level of Care Code 97356 SUB INP/OBS CARE 3/50MIN Diagnoses Septic shock A41.9; R65.21 Pneumonia J18.9 Metabolic encephalopathy G93.41 Gram-negative bacteremia R78.81 UTI (urinary tract infection) N39.0 Rheumatoid arthritis M06.9 Rheumatoid arthritis location: unspecified site Rheumatoid factor presence: unspecified presence Hypothyroidism E03.9 Steroid dependence F19.20 DVT (deep venous thrombosis) I82.409 Chronic kidney disease, stage IV (severe) N18.4 Elevated troponin R77.8 Acute heart failure with preserved ejection fraction (HFpEF) I50.31 Pulmonary HTN I27.20 Hypernatremia E87.0 Hypokalemia E87.6 (6) Rheumatoid arthritis Rheumatoid arthritis location: unspecified site Rheumatoid factor presence: unspecified presence Qualified Code(s): M06.9 - Rheumatoid arthritis, unspecified
[2023-10-26] MEDS: HYDROCORTISONE SOD 25 MG in SYRINGE 0 ML IV SCH (20:16)
[2023-10-27 06:46] LABS: Hematocrit (blood only) 23.5 % (37.0-47.0); Hemoglobin 7.5 g/dl (12.0-16.0); Mean Corpuscular Hemoglobin 30.2 pg (25.0-34.0); Mean Corpuscular Hgb Conc 31.9 g/dL (32.0-36.0); Mean Corpuscular Volume 94.8 fL (80.0-100.0); Mean Platelet Volume 9.8 fL (9.4-12.4); Platelet Count 126 K/uL (130-400); RDW Coefficient of Variation 15.3 % (11.5-14.5); RDW Standard Deviation 52.9 fL (36.4-46.3); Red Blood Count 2.48 M/uL (4.20-5.40); White Blood Count 19.34 K/ul (4.8-10.8)
[2023-10-27 07:08] LABS: BUN Creatinine Ratio 20.4 (10-20); Creatinine Clr Calc Pharmacy 22.9 ml/min; Est GFR (African American) 30.1 ml/min; Est GFR (Non-African American) 25.9 ml/min; Magnesium 2.2 mg/dl (1.7-2.4); Potassium 3.2 mmol/L (3.5-5.1)
[2023-10-27] MEDS: GABAPENTIN 300 MG CAP PO SCH (08:42)
[2023-10-27] MEDS: POTASSIUM CHLORIDE CRTAB 20 MEQ TABCR PO SCH (08:43)
[2023-10-27] MEDS: COLESTIPOL HCL 1 GM TAB PO SCH (12:12)
[2023-10-27] MEDS: POLYETHYLENE (MIRALAX) 17 GM PACK PO PRN (14:41)
[2023-10-27] MEDS: DOCUSATE SODIUM 100 MG CAP PO PRN (14:41)
--- NOTE | 2023-10-27 16:37 | Hospitalist Progress Note ---
Date of Service October 27, 2023 Assessment & Plan (1) Septic shock: Plan: +/- adrenal shock (on chronic prednisone therapy for RA) resolved required pressors HD #1 only in the ICU remains on stress-dose steroids but weaning such cont IV abx septic shock was 2nd to pneumonia/UTI (2) Pneumonia: Plan: b/l, R>L improving clinically stable NC O2 requirement no significant pulmonary symptoms WBC count improving gram negative pneumonia vs aspiration vs MRSA pneumonia ([employer] CONSULTANT swab is + thus MRSA pneumonia possible - especially with severe leukocytosis and radiographic worsening of pneumonia) cont zyvox 600mg IV BID - day #3 of such cont ertapenem to cover ESBL e.coli in the blood/urine - day #3 of ertapenem, previously was on meropenem for 36 hours (3) Metabolic encephalopathy: Plan: 2nd to septic shock/bacteremia/UTI/pneumonia about resolved cont supportive care avoid sedatives has not needed restraints in 48 hours (4) Gram-negative bacteremia: Plan: 2nd ESBL ecoli cont IV ertapenem source - urine +/- pneumonia (5) UTI (urinary tract infection): Plan: 2nd ESBL e.coli cont ertapenem - day #3 of such; previously was on meropenem for ~36 hours (6) Rheumatoid arthritis: Plan: on chronic prednisone for such follows with [facility] Rheum weaning IV hydrocortisone -- stop such, change to PO prednisone tomorrow 10mg (7) Hypothyroidism: Plan: TSH wnl cont synthroid (8) Steroid dependence: Plan: prednisone - for RA stop IV hydrocortisone resume prednisone at 10mg tomorrow, then back to 5mg on 10/28 (9) DVT (deep venous thrombosis): Plan: history of such on Xarelto chronically with severe CKD changed to Eliquis 2.5mg BID (10) Chronic kidney disease, stage IV (severe): Plan: baseline CrCl 15-30 BMP daily while here Creatinine has actually improved during the stay with supportive care (11) Elevated troponin: Plan: no evidence of ACS likely myocardial demand ischemia in setting of septic shock/bacteremia (12) Acute heart failure with preserved ejection fraction (HFpEF): Plan: cont diuresis give 20mg of lasix IV again today (13) Pulmonary HTN: Plan: severe on echo 09/2023 etiology? (14) Hypernatremia: Plan: resolved (15) Hypokalemia: Plan: replace again - increase K to 40meq TID since we are still diuresing repeat BMP am mag level remains wnl Plan chronic medical issues - * neuropathy - gabapentin 300mg TID * HTN - as #1 is resolved and BPs have climbed higher resumed her coreg 6.25mg BID yesterday & will resume amlodipine 10mg daily starting today constipation - HOLD colestipol; start scheduled miralax; dulcolax po x 1 now at baseline is lift dependent; PT/OT ordered but likely cannot participate due to poor baseline functional status and weakness from her severe illness updated pt's brother by phone 10/25/23 will update him again today Admission and Anticipated Discharge Date Admission Date: October 23, 2023 Subjective tele overnight wnl patient lying in bed comfortably states "I've counted 20 times that I've gotten those pains in my legs" (b/l legs) we discussed that her gabapentin had been on hold but it is now resumed and joshua uld help her neuropathy patient denies cough or dyspnea oral intake modestly better - 25% of meals consumed per nursing flowsheets denies abd pain denies N/V Review of Systems Review of Systems: gen - weak, fatigue, appetite loss cv - no chest pain, no orthopnea pulm - no dyspnea/wheezing GI - no abd pain Physical Exam Physical Exam: gen - awake/alert/oriented x 3; looks better mouth - MM dry neck - no JVD heart - RRR, s1 s2, 2/6 PEDRO LSB lungs - decreased BS b/l bases, mild rales (faint) R base; no wheeze; no increased work of breathing abd - soft NT ND BS+ ext - no edema b/l feet, pulses 1-2+ b/l psych - oriented to person, place, year, month skin - generalized pallor Results & Data Results & Data Vital Signs (Past 12 Hours) Vital Signs Temp Pulse Pulse Resp BP Pulse Ox O2 Del Method 10/27/23 15:22 36.5 C 83 20 190/81 H 97 10/27/23 14:17 79 10/27/23 12:41 36.6 C 71 18 168/77 H 93 10/27/23 07:38 36.6 C 75 18 158/80 H 92 10/27/23 07:31 75 20 92 Nasal Cannula 10/27/23 07:27 Nasal Cannula 10/27/23 05:53 78 O2 Flow Rate 10/27/23 15:22 10/27/23 14:17 10/27/23 12:41 10/27/23 07:38 10/27/23 07:31 5 10/27/23 07:27 4 10/27/23 05:53 Laboratory Results Laboratory Results - last 24 hr 10/27/23 06:02 WBC 19.34 H RBC 2.48 L Hgb 7.5 L Hct 23.5 L MCV 94.8 MCH 30.2 MCHC 31.9 L RDW Std Deviation 52.9 H RDW Coeff of Mario 15.3 H Plt Count 126 L MPV 9.8 Sodium 144 Potassium 3.2 L Chloride 110 H Carbon Dioxide 26 Anion Gap 8 BUN 37 H Creatinine 1.81 H Est Cr Clr Drug Dosing 22.9 Est GFR ( Amer) 30.1 Est GFR (Non-Af Amer) 25.9 BUN/Creatinine Ratio 20.4 H Glucose 118 H Calcium 8.0 L Magnesium 2.2 PG Care Time/CCT Total # of Minutes Spent Total Time Spent with Patient: Total time spent is greater than 50% in coordination of care (as documented) at patient's floor/unit and/or counseling patient: Coding Level of Care Code 68996 SUB INP/OBS CARE 3/50MIN Diagnoses Septic shock A41.9; R65.21 Pneumonia J18.9 Metabolic encephalopathy G93.41 Gram-negative bacteremia R78.81 UTI (urinary tract infection) N39.0 Rheumatoid arthritis M06.9 Rheumatoid arthritis location: unspecified site Rheumatoid factor presence: unspecified presence Hypothyroidism E03.9 Steroid dependence F19.20 DVT (deep venous thrombosis) I82.409 Chronic kidney disease, stage IV (severe) N18.4 Elevated troponin R77.8 Acute heart failure with preserved ejection fraction (HFpEF) I50.31 Pulmonary HTN I27.20 Hypernatremia E87.0 Hypokalemia E87.6 (6) Rheumatoid arthritis Rheumatoid arthritis location: unspecified site Rheumatoid factor presence: unspecified presence Qualified Code(s): M06.9 - Rheumatoid arthritis, unspecified
[2023-10-27] MEDS: amLODIPine BESYLATE 5 MG TAB PO ONE (17:01)
[2023-10-27] MEDS: FUROSEMIDE INJ 20 MG/2 ML VIAL IV ONE (18:20)
[2023-10-27] MEDS: bisacodyL 5 MG TABEC PO ONE (18:20)
[2023-10-27] MEDS: CYANOCOBALAMIN (B-12) 500 MCG TABLET PO SCH (20:12)
[2023-10-27] MEDS: FOLIC ACID 1 MG TAB PO SCH (20:12)
[2023-10-27] MEDS: POLYETHYLENE (MIRALAX) 17 GM PACK PO SCH (20:13)
[2023-10-28 06:37] LABS: Hematocrit (blood only) 25.3 % (37.0-47.0); Hemoglobin 8.1 g/dl (12.0-16.0); Mean Corpuscular Volume 93.7 fL (80.0-100.0); Mean Platelet Volume 10.1 fL (9.4-12.4); Nucleated RBC # (auto) 0.04 K/uL (0.00-0.12); Nucleated RBC % (auto) 0.3 %; Platelet Count 144 K/uL (130-400); RDW Coefficient of Variation 14.9 % (11.5-14.5); RDW Standard Deviation 50.9 fL (36.4-46.3); White Blood Count 15.08 K/ul (4.8-10.8)
[2023-10-28 07:18] LABS: Calcium 7.9 mg/dl (8.6-10.3); Creatinine Clr Calc Pharmacy 28.3 ml/min; Est GFR (African American) 38.4 ml/min; Est GFR (Non-African American) 33.1 ml/min
[2023-10-28] MEDS: POTASSIUM CHLORIDE CRTAB 20 MEQ TABCR PO SCH (08:40)
[2023-10-28] MEDS: BUMETANIDE 1 MG TAB PO SCH (08:40)
[2023-10-28] MEDS: amLODIPine BESYLATE 5 MG TAB PO SCH (08:41)
[2023-10-28] MEDS: predniSONE 10 MG TABLET PO SCH (08:41)
--- NOTE | 2023-10-28 16:41 | Hospitalist Progress Note ---
Date of Service October 28, 2023 Assessment & Plan (1) Septic shock: Plan: present on admission +/- adrenal shock (on chronic prednisone therapy for RA) resolved required pressors HD #1 only in the ICU remains on stress-dose steroids but weaning such - 10mg prednisone today, then back to usual dose of 5mg/day starting tomorrow cont IV abx septic shock was 2nd to pneumonia/UTI (2) Pneumonia: Plan: b/l, R>L improving clinically stable NC O2 requirement no significant pulmonary symptoms WBC count again improved today gram negative pneumonia vs aspiration vs MRSA pneumonia ([employer]ER swab is + thus MRSA pneumonia possible - especially with severe leukocytosis and radiographic worsening of pneumonia) cont zyvox 600mg IV BID - day #4 of such; can change IV to PO today plan 7 days total of zyvox cont ertapenem to cover ESBL e.coli in the blood/urine - day #4 of ertapenem, previously was on meropenem for 36 hours (3) Metabolic encephalopathy: Plan: 2nd to septic shock/bacteremia/UTI/pneumonia resolved cont supportive care avoid sedatives has not needed restraints in nearly 72 hours (4) Gram-negative bacteremia: Plan: 2nd ESBL ecoli cont IV ertapenem source - urine +/- pneumonia (5) UTI (urinary tract infection): Plan: 2nd ESBL e.coli cont ertapenem - day #4 of such; previously was on meropenem for ~36 hours (6) Rheumatoid arthritis: Plan: on chronic prednisone for such follows with [facility] Rheum weaning IV hydrocortisone -- stop such, change to PO prednisone today; give 10mg today then 5mg tomorrow (chronic dose) (7) Hypothyroidism: Plan: TSH wnl cont synthroid (8) Steroid dependence: Plan: prednisone - for RA stop IV hydrocortisone resume prednisone at 10mg tomorrow, then back to 5mg on 10/28 (9) DVT (deep venous thrombosis): Plan: history of such on Xarelto chronically with severe CKD changed to Eliquis 2.5mg BID (10) Chronic kidney disease, stage IV (severe): Plan: baseline CrCl 15-30 BMP daily while here Creatinine has actually improved during the stay with supportive care and diuresis (11) Elevated troponin: Plan: no evidence of ACS likely myocardial demand ischemia in setting of septic shock/bacteremia (12) Acute heart failure with preserved ejection fraction (HFpEF): Plan: resume bumex 2mg po daily - her chronic dose needs better BP control (13) Pulmonary HTN: Plan: severe on echo 09/2023 etiology? (14) Hypernatremia: Plan: resolved (15) Hypokalemia: Plan: replaced resolved lower K supplement from TID dosing to once daily dosing mag level remains wnl Plan chronic medical issues - * neuropathy - gabapentin 300mg TID * HTN - cont coreg 6.25mg BID, amlodipine 10mg daily; still high -- resume hydralazine at 25mg TID; hold losartan constipation - HOLD colestipol; scheduled miralax BID; still no BM so add senna 2 tabs daily; dulcolax suppos as needed at baseline is lift dependent; PT/OT ordered but likely cannot participate due to poor baseline functional status and weakness from her severe illness updated pt's brother by phone 10/25/23 and 10/26 progressing Admission and Anticipated Discharge Date Admission Date: October 23, 2023 Subjective tele overnight wnl patient resting in bed upon my arrival easily awakens knows she is at "[facility]" and that it is 2023 asks "will I get this infection again?" eating still very poor pains in legs (radiculopathy/neuropathy) improved after gabapentin being restarted Review of Systems Review of Systems: gen - weak, tired cv - no chest pain, no PND GI - no pain pulm - no dyspnea, no cough Physical Exam Physical Exam: gen - awake/alert/oriented x 3; NAD mouth - MM dry neck - mild JVD present heart - RRR, s1 s2, 2/6 PEDRO LSB lungs - decreased BS b/l bases, mild rales b/l bases; no wheeze; no increased work of breathing abd - soft NT ND BS+ ext - no edema b/l feet, pulses 2+ b/l psych - oriented to person, place, year skin - generalized pallor Results & Data Results & Data Vital Signs (Past 12 Hours) Vital Signs Temp Pulse Pulse Resp BP Pulse Ox O2 Del Method 10/28/23 15:15 36.7 C 77 16 175/91 H 96 Nasal Cannula 10/28/23 13:00 75 10/28/23 11:09 36.7 C 70 16 174/91 H 95 Nasal Cannula 10/28/23 07:49 Nasal Cannula 10/28/23 07:32 80 18 94 Nasal Cannula 10/28/23 07:30 36.7 C 76 16 161/73 H 93 Nasal Cannula 10/28/23 06:14 97 Nasal Cannula 10/28/23 05:50 78 O2 Flow Rate 10/28/23 15:15 4 10/28/23 13:00 10/28/23 11:09 2 10/28/23 07:49 2 10/28/23 07:32 3 10/28/23 07:30 3 10/28/23 06:14 3 10/28/23 05:50 Laboratory Results Laboratory Results - last 24 hr 10/28/23 05:41 WBC 15.08 H RBC 2.70 L Hgb 8.1 L Hct 25.3 L MCV 93.7 MCH 30.0 MCHC 32.0 RDW Std Deviation 50.9 H RDW Coeff of Mario 14.9 H Plt Count 144 MPV 10.1 Absolute Nucleated RBC 0.04 Nucleated RBC % (auto) 0.3 Sodium 144 Potassium 4.0 D Chloride 111 H Carbon Dioxide 27 Anion Gap 6 BUN 34 H Creatinine 1.48 H D Est Cr Clr Drug Dosing 28.3 Est GFR ( Amer) 38.4 Est GFR (Non-Af Amer) 33.1 BUN/Creatinine Ratio 23.0 H Glucose 80 Calcium 7.9 L PG Care Time/CCT Total # of Minutes Spent Total Time Spent with Patient: Total time spent is greater than 50% in coordination of care (as documented) at patient's floor/unit and/or counseling patient: Coding Level of Care Code 55872 SUB INP/OBS CARE 3/50MIN Diagnoses Septic shock A41.9; R65.21 Pneumonia J18.9 Metabolic encephalopathy G93.41 Gram-negative bacteremia R78.81 UTI (urinary tract infection) N39.0 Rheumatoid arthritis M06.9 Rheumatoid arthritis location: unspecified site Rheumatoid factor presence: unspecified presence Hypothyroidism E03.9 Steroid dependence F19.20 DVT (deep venous thrombosis) I82.409 Chronic kidney disease, stage IV (severe) N18.4 Elevated troponin R77.8 Acute heart failure with preserved ejection fraction (HFpEF) I50.31 Pulmonary HTN I27.20 Hypernatremia E87.0 Hypokalemia E87.6 (6) Rheumatoid arthritis Rheumatoid arthritis location: unspecified site Rheumatoid factor presence: unspecified presence Qualified Code(s): M06.9 - Rheumatoid arthritis, unspecified
[2023-10-28] MEDS ORDERED: SODIUM CHLORIDE 0.65% NA SOLN 45 ML (OCEAN) PRN (19:53)
[2023-10-28] MEDS ORDERED: OXYMETAZOLINE 0.05% 30 ML BTL PRN (19:53)
[2023-10-28] MEDS: LINEZOLID 600 MG TAB PO SCH (20:52)
[2023-10-28] MEDS: hydrALAZINE HCL 25 MG TAB PO SCH (20:52)
[2023-10-28] MEDS: MUPIROCIN 2% OINT 22 GM TUBE EXT SCH (22:03)
[2023-10-29] MEDS: DICLOFENAC SOD 1% GEL 100 GM TUBE EXT SCH (08:38)
[2023-10-29] MEDS: predniSONE 5 MG TAB PO SCH (08:40)
[2023-10-29] MEDS: SENNA 8.6 MG TAB PO SCH (08:41)
[2023-10-29 08:56] LABS: Hematocrit (blood only) 25.8 % (37.0-47.0); Hemoglobin 8.3 g/dl (12.0-16.0); Mean Corpuscular Hemoglobin 29.7 pg (25.0-34.0); Mean Corpuscular Hgb Conc 32.2 g/dL (32.0-36.0); Mean Corpuscular Volume 92.5 fL (80.0-100.0); Mean Platelet Volume 9.2 fL (9.4-12.4); Platelet Count 183 K/uL (130-400); RDW Coefficient of Variation 14.7 % (11.5-14.5); RDW Standard Deviation 49.7 fL (36.4-46.3); Red Blood Count 2.79 M/uL (4.20-5.40); White Blood Count 13.52 K/ul (4.8-10.8)
[2023-10-29 09:09] LABS: BUN Creatinine Ratio 19.2 (10-20); Calcium 7.8 mg/dl (8.6-10.3); Creatinine Clr Calc Pharmacy 28.8 ml/min; Est GFR (Non-African American) 33.6 ml/min; Potassium 3.9 mmol/L (3.5-5.1)
--- NOTE | 2023-10-29 19:49 | Hospitalist Progress Note ---
Date of Service October 29, 2023 Assessment & Plan (1) Septic shock: Plan: present on admission 2nd to pneumonia/UTI +/- adrenal shock (on chronic prednisone therapy for RA) resolved required pressors HD #1 only in the ICU s/p stress-dose steroids early in admission - weaned, and back to usual dose of 5mg/day (chronic dose for her rheumatoid) cont IV abx - see below (2) Pneumonia: Plan: b/l, R>L improving clinically stable NC O2 requirement - suspect we can wean O2 off soon no significant pulmonary symptoms WBC count again improved today gram negative pneumonia vs aspiration vs MRSA pneumonia ([employer] GOLD LETTERER swab is + thus MRSA pneumonia possible - especially with severe leukocytosis and radiographic worsening of pneumonia) cont zyvox 600mg BID - day #5 of such plan 7 days total of zyvox cont ertapenem to cover ESBL e.coli in the blood/urine - day #5 of ertapenem, previously was on meropenem for ~36 hours plan 14 days in total of IV meropenem/ertapenem (3) Metabolic encephalopathy: Plan: 2nd to septic shock/bacteremia/UTI/pneumonia resolved cont supportive care avoid sedatives has not needed restraints since last week (4) Gram-negative bacteremia: Plan: 2nd ESBL ecoli cont IV ertapenem source - urine +/- pneumonia (5) UTI (urinary tract infection): Plan: 2nd ESBL e.coli cont ertapenem - day #5 of such; previously was on meropenem for ~36 hours (6) Rheumatoid arthritis: Plan: on chronic prednisone for such follows with [facility]um cont prednisone 5mg daily (chronic dose) (7) Hypothyroidism: Plan: TSH wnl cont synthroid (8) Steroid dependence: Plan: prednisone - for RA daily dose is 5mg/day (9) DVT (deep venous thrombosis): Plan: history of such on Xarelto chronically with severe CKD changed to Eliquis 2.5mg BID -- would keep on the Eliquis in omi of Xarelto at discharge (10) Chronic kidney disease, stage IV (severe): Plan: baseline CrCl 15-30 BMP daily while here Creatinine has actually improved during the stay with supportive care, holding her ARB, and diuresis (11) Elevated troponin: Plan: no evidence of ACS likely myocardial demand ischemia in setting of septic shock/bacteremia (12) Acute heart failure with preserved ejection fraction (HFpEF): Plan: required IV diuresis earlier in the stay then transitioned back to her chronic bumex 2mg po daily volume status MUCH improved; JVD resolved; no edema BPs improved as well (13) Pulmonary HTN: Plan: severe on echo 09/2023 etiology? (14) Hypernatremia: Plan: resolved (15) Hypokalemia: Plan: replaced resolved mag level remains wnl lower potassium supplement dose from 40meq/day to 10meq/day starting 10/29 Plan chronic medical issues - * neuropathy - 2nd to SEVERE lumbar spine DJD & spinal stenosis (see MRI lumbar spine dated 01/2023) - cont gabapentin 300mg TID ; would not increase dose due to her CKD; could consider adjunctive Rx such as low-dose cymbalta 20mg daily; could consider low-dose narcotic but defer on latter * HTN - cont coreg 6.25mg BID, amlodipine 10mg daily, hydralazine 25mg TID, bume x 2mg daily; hold losartan due to fluctuating creatinine constipation - HOLD colestipol; improved with 2 large BMs today; cont scheduled miralax but lower dose to once daily dosing; cont senna but lower to 1 tab/day at baseline is lift dependent at SNF; PT/OT ordered but likely cannot participate due to poor baseline functional status and weakness updated pt's brother Johnathon by phone 10/25/23 and 10/27/23 along with today, 10/29/23 can likely transition back to [facility] next 1-2 days will need to finish her IV ertapenem - needs about 1 more week of such Admission and Anticipated Discharge Date Admission Date: October 23, 2023 Subjective resting in bed comfortably c/o b/l leg pains especially distally she asks multiple questions about her infections (UTI/bacteremia) and is worried about "getting sick again" eating is better - now taking in >50% of meals 2 very large BMs today per staff tele overnight wnl Review of Systems Review of Systems: gen - fatigued & weak cv - no cp, no orthopnea pulm - denies cough, denies dyspnea GI - no N/V Physical Exam Physical Exam: gen - awake/alert/oriented x 3; NAD; looks well today mouth - MM dry (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 despite 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 intake) neck - JVD resolved heart - RRR, s1 s2, 2/6 PEDRO LSB lungs - minimal rales b/l bases; no wheeze; no increased work of breathing abd - soft NT ND BS+ ext - no edema b/l feet, pulses 2+ b/l, muscle atrophy of both legs psych - oriented to person, place, year Results & Data Results & Data Vital Signs (Past 12 Hours) Vital Signs Temp Pulse Pulse Resp BP Pulse Ox O2 Del Method 10/29/23 19:42 36.6 C 78 20 128/78 99 Nasal Cannula 10/29/23 15:21 36.4 C L 81 20 125/68 99 Nasal Cannula 10/29/23 14:04 81 10/29/23 11:17 36.6 C 79 18 132/69 99 Room Air 10/29/23 09:21 Nasal Cannula 10/29/23 07:58 36.7 C 75 16 129/68 95 Nasal Cannula O2 Flow Rate 10/29/23 19:42 2 10/29/23 15:21 4 10/29/23 14:04 10/29/23 11:17 10/29/23 09:21 2 10/29/23 07:58 2 Laboratory Results Laboratory Results - last 24 hr 10/29/23 10/29/23 08:24 08:25 WBC 13.52 H RBC 2.79 L Hgb 8.3 L Hct 25.8 L MCV 92.5 MCH 29.7 MCHC 32.2 RDW Std Deviation 49.7 H RDW Coeff of Mario 14.7 H Plt Count 183 MPV 9.2 L Sodium 143 Potassium 3.9 Chloride 110 H Carbon Dioxide 27 Anion Gap 6 BUN 28 H Creatinine 1.46 H Est Cr Clr Drug Dosing 28.8 Est GFR ( Amer) 39.0 Est GFR (Non-Af Amer) 33.6 BUN/Creatinine Ratio 19.2 Glucose 80 Calcium 7.8 L PG Care Time/CCT Total # of Minutes Spent Total Time Spent with Patient: Total time spent is greater than 50% in coordination of care (as documented) at patient's floor/unit and/or counseling patient: Coding Level of Care Code 40068 SUB INP/OBS CARE 3/50MIN Diagnoses Septic shock A41.9; R65.21 Pneumonia J18.9 Metabolic encephalopathy G93.41 Gram-negative bacteremia R78.81 UTI (urinary tract infection) N39.0 Rheumatoid arthritis M06.9 Rheumatoid arthritis location: unspecified site Rheumatoid factor presence: unspecified presence Hypothyroidism E03.9 Steroid dependence F19.20 DVT (deep venous thrombosis) I82.409 Chronic kidney disease, stage IV (severe) N18.4 Elevated troponin R77.8 Acute heart failure with preserved ejection fraction (HFpEF) I50.31 Pulmonary HTN I27.20 Hypernatremia E87.0 Hypokalemia E87.6 (6) Rheumatoid arthritis Rheumatoid arthritis location: unspecified site Rheumatoid factor presence: unspecified presence Qualified Code(s): M06.9 - Rheumatoid arthritis, unspecified
[2023-10-30 07:17] VITALS: RESP 18
[2023-10-30] MEDS: POTASSIUM CHLORIDE 10 MEQ TABCR PO SCH (07:56)
[2023-10-30] MEDS: POLYETHYLENE (MIRALAX) 17 GM PACK PO SCH (07:59)
[2023-10-30] MEDS: SENNA 8.6 MG TAB PO SCH (08:00)
[2023-10-30 09:33] LABS: BUN Creatinine Ratio 15.7 (10-20); Creatinine Clr Calc Pharmacy 26.5 ml/min; Est GFR (African American) 35.2 ml/min; Est GFR (Non-African American) 30.3 ml/min; Potassium 3.7 mmol/L (3.5-5.1)
[2023-10-30 11:10] VITALS: BP 154/75; PULSE 80; TEMP 97.5; O2SAT 95
--- NOTE | 2023-10-30 17:02 | Discharge Summary ---
Discharge Summary Date of Service October 30, 2023 Principal Dx & Hospital Course #1 = Principal Diagnosis (1) Septic shock: 82-year-old woman admitted with septic shock secondary to ESBL E. coli UTI versus pneumonia. Initially treated in intensive care unit required pressors only on the first day of the hospital and weaned quickly off, also treated with stress dose steroids which was tapered down to her usual dose of 5 mg/day. treated with IV or ertapenem, continue through 11/06 to complete a 14-day total course for bacteremia. completed 1 week course of oral linezolid in case of pneumonia since her MRSA nares were positive. CT of her abdomen and pelvis did not show any signs of urinary tract obstruction or other notable findings. CT of her chest did show multifocal pneumonia. procalcitonin was significantly elevated at 46. (2) Pneumonia: b/l, R>L seen on chest CT No pulmonary symptoms, resolved, now on room air see above (3) Metabolic encephalopathy: 2nd to septic shock/bacteremia/UTI/pneumonia resolved had hallucinations prior to admission they were extremely disturbing for her. Advised stopping Ambien and also decreased dose of gabapentin to 100 mg p.o. 3 times daily which is more appropriate for her renal function (4) Gram-negative bacteremia: 2nd ESBL ecoli see above (5) UTI (urinary tract infection): 2nd ESBL e.coli cont ertapenem - day #5 of such; previously was on meropenem for ~36 hours (6) Rheumatoid arthritis: on chronic prednisone for such follows with [facility] cont prednisone 5mg daily (chronic dose) (7) Hypothyroidism: TSH wnl cont synthroid (8) Steroid dependence: prednisone - for RA daily dose is 5mg/day (9) DVT (deep venous thrombosis): history of such on Xarelto chronically with severe CKD changed to Eliquis 2.5mg BID -- would keep on the Eliquis in omi of Xarelto at discharge (10) Chronic kidney disease, stage IV (severe): baseline CrCl 15-30 Creatinine has actually improved during the stay with supportive care, holding her ARB, and diuresis -resume ARB on discharge (11) Elevated troponin: no evidence of ACS likely myocardial demand ischemia in setting of septic shock/bacteremia (12) Acute heart failure with preserved ejection fraction (HFpEF): required IV diuresis earlier in the stay then transitioned back to her chronic bumex 2mg po daily volume status MUCH improved; JVD resolved; no edema BPs improved as well (13) Pulmonary HTN: severe on echo 09/2023 etiology? 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 coli ESBL bacteremia Medication Changes From Visit Ambien stopped and gabapentin reduced Consider trazodone or mirtazapine for insomnia Admission HPI Per Admitting Provider This is an 82-year-old female resides at a retirement. She apparently has had nausea and vomiting over the last couple days with over the last 2 days decrease in her mentation/altered mental status. She is brought to the ER for further evaluation and treatment. In the emergency department patient was found to have a white count of 15.88. Hemoglobin of 8.8 which is approximately her baseline. Left shift was noted on the differential. BUN and creatinine 24 and 2.4 respectively. Lactic acid initially 2.4. 2 L of saline were administered. Repeat lactic acid was 2.5. Lipase was unremarkable. LFTs were unremarkable. troponin was 46.2. CT of the abdomen pelvis was positive for pneumonia with a possible right collecting duct prominence suggestive of possible recently passed stone. There was diverticulosis with no evidence of diverticulitis. Again there was consolidation seen on CT the abdomen pelvis and both lower lobes. The patient received 2 L IV fluid in the ER she received IV cefepime and IV azithromycin. We are called with the patient further evaluation and treatment. We suspect aspiration pneumonia. Will place the patient on Zosyn. The patient additionally recently admitted for strep bacteremia. Has been on a cephalosporin at home. Patient had a CT of her brain which was negative for acute findings as well in the ER. Blood cultures were obtained x 1 due to blood culture shortage nationally. 2 cultures were not obtained. Will continue the Zosyn at this time. Monitor the patient carefully continue to hydrate monitor a lactic acid level. She is a DO NOT RESUSCITATE the ER provider spoke with her next of kin. Discharge Exam PHYSICAL EXAMINATION Last 24h vital signs reviewed, see documentation in flowsheet General: comfortable appearing, no distress HEENT: Normocephalic, atraumatic, pupils round and equal, sclerae anicteric, no conjunctival injection, moist mucus membranes Lungs: Normal respiratory effort. Clear to auscultation bilaterally. No RRW Heart: Regular rate and rhythm, no murmurs. No JVD Abdomen: Soft, nontender, nondistended. Bowel sounds present. Extremities: Warm, dry, well-perfused. No extremity edema. Neuro: Alert and oriented x 4, face symmetric, moves 4 extremities well Psych: anxious affect and behavior Discharge Plan Discharge Items Patient Disposition: Transfer Snf Fac Reason For Visit: AMS, PNA Discharge Diagnosis: septic shock secondary to ESBL E. coli UTI, possible pneumonia vs aspiration pneumonitis Activity: Resume your previous activity Non-emergency contact: Primary Care Provider Call non-emergency contact if: you have any medication questions, your symptoms worsen and you have a fever Follow-up/Referrals: Girish Bauer III, MD [Primary Care Provider] - Diet: Regular Addtl Attending Provider Instructions: septic shock secondary to ESBL E. coli UTI, possible pneumonia vs aspiration pneumonitis sepsis resolved continue ertapenem to complete total 14d course for bacteremia (end after 11/07/23 last dose) aspiration pneumonia versus aspiration pneumonitis, MRSA colonization -ertapenem as above -completed >5d linezolid -resolved acute metabolic encephalopathy, hallucinations. resolved -stopped ambien and reduced gabapentin because of hallucinations, age, CKD -caution with opioids (was not getting in hospital) -trial trazodone or mirtazapine for sleep xarelto changed to apixaban at renal dose because of age, CKD PT and OT evaluate and treat Pending Studies at Discharge: No Stand-Alone Forms: [facility] Skilled Items Patient informed of condition?: Yes DNR: Yes Discharge Level of Care: Skilled Communicable Disease: No Discharge Prognosis: Improving Lines: Peripheral IV Urinary Catheter: No Medications and DC Order Prescriptions: New Eliquis 2.5 mg Tablet 2.5 mg PO BID Qty: 0 0RF sennosides [Senokot] 8.6 mg Tablet 8.6 mg PO QAM Qty: 0 0RF polyethylene glycol 3350 [Miralax] 17 gram Powder In Packet 17 g PO DAILY Qty: 0 0RF cyanocobalamin (vitamin B-12) 500 mcg Tablet 1,000 mcg PO QAM Qty: 0 0RF folic acid 1 mg Tablet 1 mg PO QAM Qty: 0 0RF ertapenem 1 gram recon soln 1 g IV DAILY Qty: 8 0RF potassium chloride 10 mEq Tablet,Er Particles/Crystals 10 meq PO QAM Qty: 0 0RF gabapentin 100 mg capsule 100 mg PO TID Qty: 1 0RF Continued carvedilol 6.25 mg tablet 6.25 mg PO BID venlafaxine 150 mg Capsule,Extended Release 24hr 150 mg PO QAM escitalopram oxalate 20 mg tablet 20 mg PO DAILY menthol-zinc oxide [Calmoseptine] 0.44-20.6 % Ointment 1 applic TOPICAL QID Rx Instructions: Apply to buttocks acetaminophen [Tylenol] 325 mg Tablet 650 mg PO Q6 PRN (Reason: Fever Or Pain) bumetanide 2 mg tablet 2 mg PO QAM famotidine 10 mg Tablet 10 mg PO HS polysaccharide iron complex [Ferrex 150] 150 mg iron Capsule 150 mg PO DAILY ondansetron HCl 4 mg Tablet 4 mg PO Q6H PRN (Reason: Nausea) prednisone 5 mg tablet 5 mg PO DAILY travoprost 0.004 % drops 2 drp OPB QPM levothyroxine 75 mcg tablet 75 mcg PO QAM ropinirole 2 mg tablet 2 mg PO HS pantoprazole 40 mg tablet,delayed release (DR/EC) 40 mg PO DAILY magnesium oxide 500 mg magnesium Tablet 500 mg PO DAILY calcium carbonate 500 mg calcium (1,250 mg) Tablet,Chewable 1,000 mg PO Q2H PRN (Reason: GERD) hydralazine 50 mg Tablet 75 mg PO TID losartan 100 mg tablet 100 mg PO QAM colestipol 1 gram tablet 2 g PO AMHS oxycodone 5 mg tablet 5 mg PO Q6H PRN (Reason: Pain 5-8) oxycodone 5 mg tablet 10 mg PO Q6H PRN (Reason: Pain 9-10) brimonidine-timolol 0.2-0.5 % drops 1 drp OPB BID diclofenac sodium 1 % Gel 2 g TOPICAL QID Rx Instructions: Apply to left hip/left knee, bi-lat feet Artificial Tears (cmc) 1 % Drops 1 drp OPL Q6H PRN (Reason: Dry Eyes) amlodipine 10 mg tablet 10 mg PO DAILY Qty: 10 0RF Changed Claritin-D 12 Hour 5-120 mg Tablet Extended Release 12 Hr 1 tab PO Q12H PRN (Reason: allergy symptoms) Qty: 0 0RF Discontinued gabapentin 300 mg capsule 300 mg PO TID tizanidine 4 mg tablet 4 mg PO HS Xarelto 20 mg tablet 20 mg PO QAM zolpidem 5 mg Tablet 5 mg PO HS PRN (Reason: Sleep) Qty: 10 0RF cefpodoxime 200 mg tablet 200 mg PO BID Qty: 30 0RF Rx Instructions: must administer with a meal/food Discharge Orders: Discharge Order (Routine); Ordered 10/30/23 Ordered By: Breanna Desir Admission Data Admit Date/Time: 10/23/23 16:05 Attending Provider: Breanna Desir Admit Provider: Aftab Osei Primary Care Provider: Girish Bauer III Other Providers: Aftab Osei; [place]ano Cortez; [place],[facility], [place] Other Interventions: Discharge Summary Assessment (RN) Last Done: 10/30/23 10:57 Hospital Stay Data Consultations 10/23/23 14:41 ED Decision to Admit Stat 10/23/23 19:32 Consult Medical Staff Services Coordinator Routine Diagnostic Imagining Performed 10/23/23 11:21 CT head/brain wo con Stat 10/23/23 13:00 CT abd pelvis wo con Stat 10/23/23 16:18 CT chest diagnostic wo con Stat Head CT 10/23/23 11:21 CT head/brain wo con CLINICAL HISTORY: AMS Technique: Contiguous axial CT images of the head were acquired from the base of the skull to the vertex without intravenous contrast administration. Images were viewed in brain, subdural and bone windows. Automated dose lowering techniques and/or adjustment according to patient size were utilized for this exam. Comparison: None available at the time of this dictation. Findings: Areas of decreased attenuation are present in the periventricular and subcortical white matter bilaterally consistent with small vessel ischemic disease. Generalized cerebral atrophy with commensurate enlargement of the ventricles, sulci, and cisterns is also present. There is no acute intracranial hemorrhage or evidence of acute territorial infarction. No shift of the midline structures, mass effect, or extra-axial abnormalities are shown. Atherosclerotic calcifications are present in the intracranial segments of the internal carotid arteries. Imaged portions of the paranasal sinuses and mastoid air cells are clear. The orbits appear normal. There are no acute fractures of the calvaria or scalp swelling. Impression: No acute intracranial hemorrhage, no evidence of acute territorial infarction or other acute intracranial disease process. ACT 112: Negative or not required by law. Electronically signed by: Gui Coy M.D. 10/23/2023 11:40 AM Chest X-Ray 10/23/23 11:44 XR chest 1V portable CLINICAL HISTORY: Hypoxia TECHNIQUE: Single frontal radiograph of the chest was obtained. Comparison: Comparison is made to chest radiograph 10/01/2023 FINDINGS: No lines and tubes are seen. Aortic valvular prosthesis is seen. Prominence and cephalization of the vasculature is seen. No evidence of pleural effusion or pneumothorax. IMPRESSION: Cardiomegaly and mild pulmonary edema. ACT 112: Negative or not required by law. Electronically signed by: Gui Coy M.D. 10/23/2023 12:32 PM Abdomen/Pelvis CT 10/23/23 13:00 CT abd pelvis wo con CLINICAL HISTORY: nausea and vomiting TECHNIQUE: Helical axial images of the abdomen and pelvis were obtained. Automated dose lowering techniques and/or adjustment according to patient size were utilized for this exam. This exam was performed without intravenous contrast. CT DOSE: 1254.29 mGy.cm COMPARISON: Comparison is made to CT abdomen pelvis 06/20/2022 FINDINGS: Lower chest: Consolidation is seen in the visualized lower lungs. Liver: Unremarkable. No focal lesions are seen. Gallbladder and biliary tree: Patient is status post cholecystectomy. No intra- or extrahepatic biliary ductal dilation. Pancreas: Unremarkable, no focal lesions. Spleen: Unremarkable. Adrenals: Unremarkable. Kidneys and ureters: Prominence of the right collecting system is seen. Bladder: Unremarkable. Reproductive organs: Patient is status post hysterectomy. Bowel: Diverticulosis is seen without evidence of diverticulitis. A large hiatal hernia is seen. Patient is status post appendectomy. Lymph nodes Retroperitoneal: Subcentimeter lymph nodes are noted. Pelvic: Unremarkable. Mesenteric: Unremarkable. Peritoneum: Normal. Vessels: Atherosclerotic calcifications are seen. Abdominal wall: Right fat-containing inguinal hernia. Bones: Degenerative changes in the visualized spine. Serpiginous hypodensity in the bilateral hips is nonspecific but can be seen in AVN. IMPRESSION: 1. Pneumonia. 2. Prominence of the right collecting system without obstructive stone, a recently passed stone cannot be excluded. 3. Diverticulosis without diverticulitis. ACT 112: Negative or not required by law. Electronically signed by: Gui Coy M.D. 10/23/2023 2:[address] 10/23/23 16:18 CT chest diagnostic wo con CLINICAL HISTORY: PNA? TECHNIQUE: Multidetector row helical CT of the chest was performed. Coronal and sagittal reformations were obtained. Automated dose lowering techniques and/or adjustment according to patient size were utilized for this exam. CT DOSE: 652.33 mGy.cm Comparison: Comparison is made to chest radiograph 10/23/2023 FINDINGS: Lungs and pleura: Multifocal airspace opacities are seen. There are trace bilateral effusions. Heart and pericardium: Cardiomegaly is seen with biatrial enlargement. Vessels: Severe atherosclerotic changes in the aorta and coronary arteries. Mediastinum and peter: Subcentimeter lymph nodes are seen. Chest wall and lower neck: Unremarkable. Abdomen: For findings below the diaphragm, please refer to CT of the abdomen dated the same. Bones: Degenerative changes in the thoracic spine. IMPRESSION: Multifocal airspace opacities compatible with pneumonia. Trace bilateral pleural effusions. ACT 112: Negative or not required by law. Electronically signed by: Gui Coy M.D. 10/23/2023 5:38 PM Chest X-Ray 10/25/23 18:56 XR chest 1V portable CLINICAL HISTORY: pneumonia, interval change TECHNIQUE: Single frontal radiograph of the chest was obtained. Comparison: Comparison is made to chest radiograph 10/23/2023 FINDINGS: No lines and tubes are seen. Cardiomegaly is noted. Multifocal airspace opacities are seen. No pneumothorax is seen, pleural effusions cannot be excluded. IMPRESSION: Interval increase in multifocal airspace opacities compatible with worsening pneumonia. ACT 112: Negative or not required by law. Electronically signed by: Gui Coy M.D. 10/26/2023 7:10 AM Chest X-Ray 10/26/23 07:19 XR chest 1V portable CLINICAL HISTORY: worsening b/l infiltrates TECHNIQUE: Single frontal radiograph of the chest was obtained. Comparison: Comparison is made to chest radiograph 10/25/2023 FINDINGS: No lines and tubes are seen. Cardiomegaly is noted. Multifocal airspace opacities are seen. Cannot exclude a trace right pleural effusion. IMPRESSION: Multifocal airspace opacities may represent atelectasis, pneumonia, and/or aspiration. Overall extent is similar to minimally decreased from prior exam. ACT 112: Negative or not required by law. Electronically signed by: Gui Coy M.D. 10/26/2023 7:41 AM 10/29/23 08:25 10/30/23 08:56 Pending Results Patient Have Any Pending Studies at Discharge: No Discharge Instructions Given to Patient (Per Discharging Provider) septic shock secondary to ESBL E. coli UTI, possible pneumonia vs aspiration pneumonitis sepsis resolved continue ertapenem to complete total 14d course for bacteremia (end after 11/07/23 last dose) aspiration pneumonia versus aspiration pneumonitis, MRSA colonization -ertapenem as above -completed >5d linezolid -resolved acute metabolic encephalopathy, hallucinations. resolved -stopped ambien and reduced gabapentin because of hallucinations, age, CKD -caution with opioids (was not getting in hospital) -trial trazodone or mirtazapine for sleep xarelto changed to apixaban at renal dose because of age, CKD PT and OT evaluate and treat Total Time Total Time Spent Total Time Spent (In Minutes): I personally spent: 40 minutes today on clinical care activities including: reviewing chart notes and vital signs reviewing labs reviewing studies discussion with manager managed care examining and counseling the patient writing orders, discharge orders instructions and prescriptions documentation Coding Level of Care Code 71088 INP/OBS DISCH >30 MIN Diagnoses Septic shock A41.9; R65.21 Pneumonia J18.9 Metabolic encephalopathy G93.41 Gram-negative bacteremia R78.81 UTI (urinary tract infection) N39.0 Rheumatoid arthritis M06.9 Rheumatoid arthritis location: unspecified site Rheumatoid factor presence: unspecified presence Hypothyroidism E03.9 Steroid dependence F19.20 DVT (deep venous thrombosis) I82.409 Chronic kidney disease, stage IV (severe) N18.4 Elevated troponin R77.8 Acute heart failure with preserved ejection fraction (HFpEF) I50.31 Pulmonary HTN I27.20 Hypernatremia E87.0 Hypokalemia E87.6
== END 2023-10-30 13:45 | DRG 871 ==
LOC: ED 11:06 → SUATTDRO 16:05 → 1E 16:05 → 2N 10-24 17:41

== ENCOUNTER 2023-12-04 10:12 | Inpatient (IN) ==
[2023-12-04] MEDS ORDERED: VANCOMYCIN CONSULT ACTIVE PRN (10:51)
[2023-12-04 11:07] LABS: Basophils # (auto) 0.04 K/uL (0.00-0.20); Basophils % (auto) 0.2 %; Eosinophils # (auto) 0.04 K/uL (0.00-0.50); Eosinophils % (auto) 0.2 %; Hematocrit (blood only) 31.6 % (37.0-47.0); Hemoglobin 9.7 g/dl (12.0-16.0); Immature Granulocytes # (auto) 0.25 K/uL (0.01-0.20); Immature Granulocytes % (auto) 1.5 %; Lymphocytes # (auto) 0.84 K/uL (1.20-3.40); Lymphocytes % (auto) 4.9 %; Mean Corpuscular Hemoglobin 29.8 pg (25.0-34.0); Mean Corpuscular Hgb Conc 30.7 g/dL (32.0-36.0); Mean Corpuscular Volume 97.2 fL (80.0-100.0); Mean Platelet Volume 8.6 fL (9.4-12.4); Monocytes # (auto) 0.78 K/uL (0.11-0.59); Monocytes % (auto) 4.6 %; Neutrophils # (auto) 15.03 K/uL (1.40-6.50); Neutrophils % (auto) 88.6 %; Platelet Count 256 K/uL (130-400); RDW Standard Deviation 59.3 fL (36.4-46.3); Red Blood Count 3.25 M/uL (4.20-5.40); White Blood Count 16.98 K/ul (4.8-10.8)
--- NOTE | 2023-12-04 11:15 | XRay Report ---
XR chest 1V portable CLINICAL HISTORY: Sepsis TECHNIQUE: Single frontal radiograph of the chest was obtained. Comparison: Comparison is made to chest radiograph 11/12/2023 FINDINGS: No lines and tubes are seen. The cardiomediastinal silhouette is stable. Elevation of the right hemid iaphragm is seen. Atelectasis is in the right lower lung. No evidence of pleural effusion or pneumoth orax. IMPRESSION: No acute abnormalities and in particular no radiographic evidence of pneumonia. ACT 112: Negative or not required by law. Electronically signed by: Gui Coy M.D. 12/04/2023 11:14 AM
[2023-12-04 11:17] LABS: Appearance Urine Cloudy (Clear); Bacteria Urine Automated 4+ (None Seen); Bilirubin Urine Negative (Negative); Blood Urine Negative (Negative); Color Urine Yellow; Epithelial Cell Urine Auto 0-2 /hpf (0-2); Glucose Urine UA Negative (Negative); Ketones Urine Negative (Negative); Leukocyte Esterase Urine 3+ (Negative); Nitrite Urine Positive (Negative); Protein Urine 2+ (Negative); RBC Urine Automated 0-2 /hpf (0-2); Triple Phosphate Crystal Urine Present (None Prsent); Urobilinogen Urine Negative (Negative); WBC Urine Automated 21-50 /hpf (0-5); pH Urine >= 9.0 (4.5-7.5)
[2023-12-04] MEDS: CEFEPIME 2,000 MG/20 ML VIAL IV STA (11:24)
[2023-12-04 11:27] LABS: Albumin Globulin Ratio 1.4 (0.9-2); BUN Creatinine Ratio 23.4 (10-20); Bilirubin,Total 0.6 mg/dl (0.2-1.0); Creatinine Clr Calc Pharmacy 25.9 ml/min; Est GFR (African American) 33.1 ml/min; Est GFR (Non-African American) 28.6 ml/min; Globulin 2.2 gm/dl (2.5-4.0); Magnesium 2.4 mg/dl (1.7-2.4); Potassium 4.3 mmol/L (3.5-5.1); Total Protein 5.2 gm/dl (6.0-8.3)
[2023-12-04] MEDS: SODIUM CHLORIDE 0.9% 1,000 ML IV SCH (11:30)
[2023-12-04] MEDS: ACETAMINOPHEN 1,000 MG/100 ML VIAL IV STA (11:30)
[2023-12-04 11:31] LABS: Troponin I High Sensitivity 17.5 pg/ml (0-14)
[2023-12-04 11:35] LABS: Partial Thromboplastin Ratio 0.8; Partial Thromboplastin Time 21 Seconds (21-31); Prothrombin Time 10.8 Seconds (9.0-12.0)
--- NOTE | 2023-12-04 11:50 | Emergency Department Note ---
Impression & Plan Sepsis, Acute UTI (urinary tract infection), Leukocytosis, High serum lactate ED Provider Note NAME: LADAN RUELAS AGE: 82 SEX: Female INFORMANT: Patient ED PROVIDER(S): Merritt Gonsalez MD CHIEF COMPLAINT: Fever PLAN: Disposition: Admitted Outpatient prescription management: none Referral: None MEDICAL DECISION MAKING: Patient presented because of fever. Patient was also lethargic. Patient was answering questions and denied any pain. She was hypotensive and febrile on arrival. Septic workup was initiated. Patient was found to have a leukocytosis on CBC. Chemistry panel was unremarkable but the patient did have an elevated serum lactate. Given the fever, lactate, and leukocytosis coupled with hypotension this was concerning for sepsis. Patient was given empiric vancomycin and cefepime. Fluid resuscitation was initiated with 2000 mL of normal saline. Patient's hypotension did resolve. With the patient's vancomycin, Tylenol, and 2 L of normal saline she had 2600 mL of fluid meeting the 30 mL/kg for sepsis. Discussed with ED pharmacist. Reviewed patient's prior cultures. Patient does have a history of ESBL and IV ertapenem was recommended. Pharmacy recommended continuation of IV or ertapenem and vancomycin and discontinuation of cefepime. Chest x-ray was unremarkable. BioFire test was ordered. [facility], Dr. Burris. Patient was evaluated in the ER and admitted for further management. Care/management discussed with: ED pharmacist, special education case manager Level of care consideration(s): After review of the information above and other included data, I feel the patient requires escalation of care to admission Triage Nursing notes: reviewed and agree them. Vital Signs: reviewed and remarkable for hypertension, fever Additional History obtained from: none Chronic Medical/Social Conditions affecting care: Hypertension, assisted status Prior/ Outside/ External records reviewed: care home records reviewed. Patient was febrile and hypotensive. They noted concerns for UTI. Differential Diagnosis: Sepsis, UTI, pneumonia, metabolic, electrolyte abnormalities, cardiac sources, intracerebral event, toxicologic, neurologic, as well as other pathologies. Diagnostics, independently interpreted by me: ECG: Twelve-lead ECG reveals normal sinus rhythm at 95 beats per minute. No evidence of pericarditis, ischemia, ectopy, or dysrhythmia. Cardiac Monitoring: Cardiac monitoring ordered by me: The patient was placed on continuous cardiac monitoring and observed. It revealed a normal sinus rhythm at 87 beats per minute without ectopy or evidence of dysrhythmia. Medical decision rules: none Imaging studies: Chest x-ray. Findings: A chest x-ray was performed and revealed no pneumothorax, effusion, infiltrate, pulmonary edema, free air under the diaphragm, or wide mediastinum. Impression: No acute disease. HPI: 82 year old Female arrives for evaluation of fever. This started today and is persisting. Patient resides from [facility]. They had concerns for UTI show patient has history of same. The patient also notes the following associated symptoms, generalized weakness. The patient has been given no antibiotics for relieving factors. Current pain is rated as 0/10. Pt denies headache, diaphoresis, visual changes, neck pain, chest pain, breathing difficulties, nausea, vomiting, abdominal pain, back pain, numbness, lymphadenopathy, rash, or other complaints. PAST MEDICAL HISTORY: See Below, hypertension, weakness, sepsis, UTI, pneumonia PAST SURGICAL HISTORY: See Below, SOCIAL HISTORY: See Below, resides at [facility] assisted HOME MEDICATIONS: See Below ALLERGIES: See Below VITALS: See Below PHYSICAL EXAMINATION: GENERAL: Awake, lethargic-appearing, in no distress HENT: Normocephalic, atraumatic. Oropharynx unremarkable. EYES: Normal conjunctiva. Sclera non-icteric. NECK: Inspection normal. Non-tender. Supple. No nuchal rigidity. FROM. No masses. RESPIRATORY: Clear to auscultation. No wheezes. No rales. Normal respiratory effort. CARDIAC: Normal rate. Normal rhythm. No murmurs. No rubs. Extremities warm and well perfused. Pulses equal. No JVD. GI: Soft, non-distended. No tenderness to palpation. No rebound or guarding. No masses. RECTAL: Deferred. MUSCULOSKELETAL: Atraumatic. Chest examination reveals no tenderness. The back is symmetrical on inspection without obvious abnormality. There is no CVA tenderness to palpation. No joint edema. LOWER EXTREMITIES: Calves are equal size bilaterally and non-tender. 1+ edema. No discoloration. NEURO: Normal sensorium. No sensory or motor deficits noted. SKIN: No rash or jaundice noted. PROCEDURES: none CRITICAL CARE: I have personally spent 30 minutes of critical care time in the direct management of this patient. This includes bedside care, interpretation of diagnostic studies, and testing, discussion with consultants, patient, and other required patient management activities. These minutes are in excess of all separately billable procedures. OBSERVATION NOTE: none Past Med/Surg History Problem List (Updated 12/04/23 @ 14:49 by Cody Anderson) High serum lactate (Acute) Leukocytosis (Acute) Acute UTI (urinary tract infection) (Acute) Sepsis (Acute) Pulmonary HTN Acute heart failure with preserved ejection fraction (HFpEF) Chronic kidney disease, stage IV (severe) Steroid dependence UTI (urinary tract infection) Gram-negative bacteremia Rheumatoid arthritis FOLLOWS DR. TREVINO Essential hypertension Insomnia Streptococcal bacteremia Lower extremity ulceration Sepsis (Acute) Hypoxia (Acute) Respiratory failure (Acute) Degenerative spondylolisthesis Scoliosis of lumbar region due to degenerative disease of spine in adult Painful orthopaedic hardware Encounter for pre-operative examination Occult blood positive stool Anemia Generalized weakness (Acute) Bilateral edema of lower extremity (Acute) Acute kidney injury superimposed on chronic kidney disease (Acute) Acute UTI (urinary tract infection) (Acute) Greater trochanteric bursitis of left hip Bilateral leg edema Acute hypoxemic respiratory failure Community acquired pneumonia Hypoxia (Acute) Weakness (Acute) Gastroenteritis (Acute) Hypertensive urgency Elevated troponin (Acute) Lumbar spinal stenosis Severe at L2-S1 DVT prophylaxis Acute kidney injury superimposed on CKD Weakness (Acute) Fatigue (Acute) HTN (hypertension) (Chronic) Spinal stenosis, lumbar region with neurogenic claudication Hypothyroidism Depression Neuropathy (Chronic) FEET Osteoarthritis (Chronic) Restless leg syndrome (Chronic) Glaucoma (Chronic) Medical History Septic shock Pneumonia Metabolic encephalopathy DVT (deep venous thrombosis) Non-ST elevation [place] (NSTEMI) CKD (chronic kidney disease), stage III care home resident resident of [facility] Low hemoglobin and low hematocrit Dysphagia Gait abnormality Weakness Low back pain Personal history of venous thrombosis and embolism Other intestinal Escherichia coli infections Cognitive communication deficit Adult failure to thrive Herniated lumbar disc without myelopathy Left central disc herniation at L5-S1 Lumbar radiculopathy High cholesterol Anxiety Hypertension Surgical History History of total bilateral knee replacement (TKR) History of carpal tunnel release RIGHT HAND Hx of arthroscopy RIGHT KNEE (MENISCUS) Hx of tonsillectomy Hx of hysterectomy Hx laparoscopic cholecystectomy Family History Mother Family history of reaction to anesthesia SLOW TO AWAKEN Social History Smoking Status: Never smoker Second Hand Exposure: No; Do You Dip or Chew Tobacco: No; Hx Alcohol Use: No Hx Substance Use: No Preferred Language: Tajik Communication Ability: Effective Communication Ability Comment: Pt disoriented, but able to communicate needs Visual Impairment: No Limitations Equipment Technician Required: No Beliefs That Will Affect Care: None marital status: Single Current Living Situation: Personal Care Facility Current Living Situation Comment: [facility] How many Children do You have: 0 Other Information That Helps Us Care for You: No Feels Safe at Home: Yes Safety Concerns: Feels Safe At This Time Assistive Devices: Lift Chair Allergies Allergies Allergy/AdvReac Type Severity Reaction Status Date / Time aspirin Allergy Severe ANAPHYLAXIS Verified 12/04/23 12:18 duloxetine [From Cymbalta] Allergy Intermediate Rash Verified 12/04/23 12:18 NSAIDS (Non-Steroidal Allergy Unknown Verified 12/04/23 12:18 Anti-Inflamma lisinopril AdvReac Intermediate Cough Verified 12/04/23 12:18 Home Meds Home Medications Medication Instructions Recorded Confirmed acetaminophen 325 mg tablet 650 mg PO Q6 PRN Fever Or Pain 09/28/23 12/04/23 (Tylenol) brimonidine 0.2 %-timolol 0.5 % 1 drp OPB BID 09/28/23 12/04/23 eye drops bumetanide 2 mg tablet 2 mg PO QAM 09/28/23 12/04/23 calcium carbonate 1,000 mg PO Q2H PRN GERD 09/28/23 12/04/23 carboxymethylcellulose sodium 1 % 1 drp OPL Q6H PRN Dry Eyes 09/28/23 12/04/23 eye drops (Artificial Tears (carboxymethylcellulose)) famotidine 10 mg tablet 10 mg PO HS 09/28/23 12/04/23 hydralazine 50 mg tablet 75 mg PO TID 09/28/23 12/04/23 levothyroxine 75 mcg tablet 75 mcg PO QAM 09/28/23 12/04/23 losartan 100 mg tablet 100 mg PO QAM 09/28/23 12/04/23 magnesium oxide 500 mg PO DAILY 09/28/23 12/04/23 ondansetron HCl 4 mg tablet 4 mg PO Q6H PRN Nausea 09/28/23 12/04/23 oxycodone 5 mg tablet 5 mg PO Q6H PRN Pain 5-8 09/28/23 12/04/23 oxycodone 5 mg tablet 10 mg PO Q6H PRN Pain 9-10 09/28/23 12/04/23 pantoprazole 40 mg tablet,delayed 40 mg PO DAILY 09/28/23 12/04/23 release polysaccharide iron complex 150 mg 150 mg PO DAILY 09/28/23 12/04/23 iron capsule (Ferrex) ropinirole 2 mg tablet 2 mg PO HS 09/28/23 12/04/23 travoprost 0.004 % eye drops 1 drp OPB QPM 09/28/23 12/04/23 carvedilol 6.25 mg tablet 6.25 mg PO BID 10/23/23 12/04/23 venlafaxine 150 mg 150 mg PO QAM 10/23/23 12/04/23 capsule,extended release 24 hr bisacodyl 10 mg rectal suppository 10 mg OH DAILY PRN Constipation 12/04/23 12/04/23 diclofenac sodium 1 % topical gel 2 g topical QID 12/04/23 12/04/23 magnesium hydroxide 400 mg/5 mL 30 ml PO DAILY PRN Constipation 12/04/23 12/04/23 oral suspension (Milk of Magnesia) prednisone 20 mg tablet 20 mg PO QAM 12/04/23 12/04/23 pregabalin 75 mg capsule 75 mg PO TID 12/04/23 12/04/23 sodium phosphates 19 gram-7 1 ml OH ONCE PRN Constipation 12/04/23 12/04/23 gram/118 mL enema (Fleet Enema) venlafaxine 37.5 mg 37.5 mg PO QAM depression 12/04/23 12/04/23 capsule,extended release 24 hr Previous Rx's Medication Instructions Recorded amlodipine 10 mg tablet 10 mg PO DAILY #10 tabs 10/03/23 apixaban 2.5 mg tablet (Eliquis) 2.5 mg PO BID #0 tabs 10/30/23 cyanocobalamin (vitamin B-12) 500 1,000 mcg (2 x 500 mcg) PO QAM #0 08/20/24 mcg tablet tabs folic acid 1 mg tablet 1 mg PO QAM #0 tabs 10/30/23 loratadine 5 mg-pseudoephedrine ER 1 tab PO Q12H PRN allergy symptoms 10/30/23 120 mg tablet,extended #0 tabs release,12hr (Claritin-D 12 Hour) polyethylene glycol 3350 17 gram 17 g PO DAILY #0 ea 10/30/23 oral powder packet (Miralax) potassium chloride 10 mEq 10 meq PO QAM #0 tabs 10/30/23 tablet,extended release(part/cryst) sennosides 8.6 mg tablet (Senokot) 8.6 mg PO QAM #0 tabs 10/30/23 Results & Data (ED) Vital Signs Vital Signs - 24 hr 12/04/23 10:33 12/04/23 11:34 12/04/23 11:34 Temperature 38.4 C H Temperature Source Rectal Pulse Rate 95 H 91 H Pulse Rate [Right Finger] Pulse Rhythm Regular Pulse Strength Normal Respiratory Rate 20 15 Respiratory Effort / Characteristics Non-Labored Respiratory Depth Normal Respiratory Pattern Regular Blood Pressure 91/56 L Blood Pressure [Left Arm] Blood Pressure Mean 67 Blood Pressure Mean [Left Arm] Blood Pressure Position Lying Blood Pressure Position [Left Arm] Pulse Oximetry 93 93 93 Oxygen Delivery Method Room Air Room Air Room Air Sepsis Recent Fever Within 48 Hours Yes Sepsis New/Unexplained Change in Mental Status N/A Sepsis Action Taken by Nursing Physician Notified 12/04/23 11:48 12/04/23 12:05 Temperature 36.9 C 36.8 C Temperature Source Rectal Oral Pulse Rate Pulse Rate [Right Finger] 87 91 H Pulse Rhythm Pulse Strength Respiratory Rate 18 13 Respiratory Effort / Characteristics Non-Labored Spontaneous Non-Labored Spontaneous Respiratory Depth Respiratory Pattern Blood Pressure Blood Pressure [Left Arm] 141/67 H 102/44 L Blood Pressure Mean Blood Pressure Mean [Left Arm] 91 63 Blood Pressure Position Blood Pressure Position [Left Arm] Lying Lying Pulse Oximetry 95 96 Oxygen Delivery Method Room Air Room Air Sepsis Recent Fever Within 48 Hours Sepsis New/Unexplained Change in Mental Status Sepsis Action Taken by Nursing Laboratory Data 12/04/23 10:43 12/04/23 10:43 Lab Results 12/04/23 12/04/23 Range/Units 10:43 11:33 WBC 16.98 H (4.8-10.8) K/ul RBC 3.25 L (4.20-5.40) M/uL Hgb 9.7 L (12.0-16.0) g/dl Hct 31.6 L (37.0-47.0) % MCV 97.2 (80.0-100.0) fL MCH 29.8 (25.0-34.0) pg MCHC 30.7 L (32.0-36.0) g/dL RDW Std Deviation 59.3 H (36.4-46.3) fL RDW Coeff of Mario 17.0 H (11.5-14.5) % Plt Count 256 (130-400) K/uL MPV 8.6 L (9.4-12.4) fL Immature Gran % (Auto) 1.5 % Neut % (Auto) 88.6 % Lymph % (Auto) 4.9 % [place] % (Auto) 4.6 % Eos % (Auto) 0.2 % Baso % (Auto) 0.2 % Neut # (Auto) 15.03 H (1.40-6.50) K/uL Lymph # (Auto) 0.84 L (1.20-3.40) K/uL [place] # (Auto) 0.78 H (0.11-0.59) K/uL Eos # (Auto) 0.04 (0.00-0.50) K/uL Baso # (Auto) 0.04 (0.00-0.20) K/uL Immature Gran # (Auto) 0.25 H (0.01-0.20) K/uL PT 10.8 (9.0-12.0) Seconds INR 1.0 (0.9-1.1) APTT 21 (21-31) Seconds PTT Ratio 0.8 Sodium 140 (136-145) mmol/L Potassium 4.3 (3.5-5.1) mmol/L Chloride 103 (98-107) mmol/L Carbon Dioxide 30 (21-32) mmol/L Anion Gap 7 (3-11) BUN 39 H (6-23) mg/dl Creatinine 1.67 H (0.6-1.2) mg/dl Est Cr Clr Drug Dosing 25.9 ml/min Est GFR ( Amer) 33.1 ml/min Est GFR (Non-Af Amer) 28.6 ml/min BUN/Creatinine Ratio 23.4 H (10-20) Glucose 83 (70-99(Fasting)) mg/dl Lactate 2.3 H* (0.4-2.0) mmol/L Calcium 8.0 L (8.6-10.3) mg/dl Magnesium 2.4 (1.7-2.4) mg/dl Total Bilirubin 0.6 (0.2-1.0) mg/dl AST 26 (13-39) U/L ALT 28 (7-52) U/L Alkaline Phosphatase 77 (34-104) U/L Troponin I High Sens 17.5 H (0-14) pg/ml Total Protein 5.2 L (6.0-8.3) gm/dl Albumin 3.0 L (3.4-5.0) gm/dl Globulin 2.2 L (2.5-4.0) gm/dl Albumin/Globulin Ratio 1.4 (0.9-2) Procalcitonin 8.13 H (0-0.5) ng/ml Urine Color Yellow Urine Appearance Cloudy A (Clear) Urine pH >= 9.0 H (4.5-7.5) Ur Specific [place] 1.010 (1.000-1.030) Urine Protein 2+ H (Negative) Urine Glucose (UA) Negative (Negative) Urine Ketones Negative (Negative) Urine Blood Negative (Negative) Urine Nitrite Positive A (Negative) Urine Bilirubin Negative (Negative) Urine Urobilinogen Negative (Negative) Ur Leukocyte Esterase 3+ H (Negative) Urine WBC (Auto) 21-50 H (0-5) /hpf Urine RBC (Auto) 0-2 (0-2) /hpf U Hyaline Cast (Auto) 3-5 H (0-2) /lpf U Epithel Cells (Auto) 0-2 (0-2) /hpf Urine Bacteria (Auto) 4+ H (None Seen) Triple Phos Crystals Present A (None Prsent) Adenovirus (PCR) Not Detected (NotDetected) B. pertussis DNA (PCR) Not Detected (NotDetected) B.parapertussis DNA PCR Not Detected (NotDetected) C. pneumoniae DNA (PCR) Not Detected (NotDetected) Coronavirus OC43 (PCR) Not Detected (NotDetected) Coronavirus HKU1 (PCR) Not Detected (NotDetected) Coronavirus 229E (PCR) Not Detected (NotDetected) SARS-CoV-2 (PCR) Not Detected (NotDetected) Coronavirus NL63 (PCR) Not Detected (NotDetected) Human Metapneumovir PCR Not Detected (NotDetected) Influenza Type A (PCR) Not Detected (NotDetected) Influenza Type B (PCR) Not Detected (NotDetected) M. pneumoniae (PCR) Not Detected (NotDetected) Parainfluenza 1 (PCR) Not Detected (NotDetected) Parainfluenza 2 (PCR) Not Detected (NotDetected) Parainfluenza 3 (PCR) Not Detected (NotDetected) Parainfluenza 4 (PCR) Not Detected (NotDetected) RSV (PCR) Not Detected (NotDetected) Entero/Rhino (PCR) Not Detected (NotDetected) Administered Medications Discontinued Medications Hydrocortisone Sodium Succinate (Hydrocortisone Sod Succinate 100 Mg/2 Ml Vial) 100 mg IV NOW STA Stop: 12/04/23 12:50 Last Admin: 12/04/23 13:08 Dose: 100 mg Documented By: KARLA Sodium Chloride (Nss) 1,000 mls @ 999 mls/hr IV .Q1H1M AMARI Stop: 12/04/23 13:00 Last Infusion: 12/04/23 13:15 Dose: Infused Documented By: Admin: 12/04/23 12:04 Dose: 999 mls/hr Documented By: Infusion: 12/04/23 12:04 Dose: Infused Documented By: Admin: 12/04/23 11:30 Dose: 999 mls/hr Documented By: KARLA Acetaminophen (Ofirmev) 1,000 mg in 100 mls @ 400 mls/hr IV NOW STA Stop: 12/04/23 11:03 Last Infusion: 12/04/23 12:05 Dose: Infused Documented By: Admin: 12/04/23 11:30 Dose: 400 mls/hr Documented By: KARLA Cefepime HCl (Maxipime) 2,000 mg in 20 mls @ 5 mls/min IV NOW STA; Protocol Stop: 12/04/23 10:54 Last Admin: 12/04/23 11:24 Dose: 5 mls/min Documented By: KARLA Vancomycin HCl 1,500 mg/ (Sodium Chloride) 530 mls @ 200 mls/hr IV NOW ONE Stop: 12/04/23 13:29 Last Infusion: 12/04/23 16:37 Dose: Infused Documented By: Admin: 12/04/23 11:59 Dose: 200 mls/hr Documented By: KARLA Ertapenem 500 mg/ Syringe 5 mls @ 2 mls/min IV NOW ONE Stop: 12/04/23 11:47 Last Admin: 12/04/23 12:25 Dose: 2 mls/min Documented By: KARLA Lactated Ringer's (Lr) 1,000 mls @ 999 mls/hr IV .Q1H1M ONE Stop: 12/04/23 13:48 Last Infusion: 12/04/23 16:37 Dose: Infused Documented By: Admin: 12/04/23 13:14 Dose: 999 mls/hr Documented By: KARLA Imaging Data Radiologist's Impression: Chest X-Ray 12/04/23 10:46 XR chest 1V portable CLINICAL HISTORY: Sepsis TECHNIQUE: Single frontal radiograph of the chest was obtained. Comparison: Comparison is made to chest radiograph 11/12/2023 FINDINGS: No lines and tubes are seen. The cardiomediastinal silhouette is stable. Elevation of the right hemidiaphragm is seen. Atelectasis is in the right lower lung. No evidence of pleural effusion or pneumothorax. IMPRESSION: No acute abnormalities and in particular no radiographic evidence of pneumonia. ACT 112: Negative or not required by law. Electronically signed by: Gui Coy M.D. 12/04/2023 11:14 AM Discharge Plan Visit Data Chief Complaint: Fever Stated Complaint: FEVER ED Provider: Merritt Gonsalez Discharge Problem: Sepsis, Acute UTI (urinary tract infection), Leukocytosis, High serum lactate Patient Disposition: Admitted As Inpatient Discharge Instructions Interventions: ED Discharge Assessment Last Done: 12/04/23 14:21
[2023-12-04] MEDS: VANCOMYCIN HCL 1,500 MG in SODIUM CHLORIDE 0.9% 500 ML IV ONE (11:59)
[2023-12-04] MEDS: ERTAPENEM SODIUM 500 MG in SYRINGE 0 ML IV ONE (12:25)
--- NOTE | 2023-12-04 12:37 | History & Physical Report ---
Date of Service December 04, 2023 Assessment & Plan (1) Sepsis: Plan: Follow up urine and blood cultures Empiric vancomycin + ertapenem Lactate 2.3 -> 1.8 s/p 2L NSS Stress dose steroids with hydrocortisone 100mg IV now then 50mg q6h which can be weaned over 2-3 days as long as BP stable Chronic HFpEF - will stop fluids overnight, consider restarting Bumex tomorrow if BP amenable (2) Acute pyelonephritis: Plan: Left CVA tenderness on admission Antibiotics as above (3) Rheumatoid arthritis: Plan: Chronic prednisone 20mg PO daily - therefore stress dose steroids started Plan VTE Prophylaxis - Eliquis (prior DVT) Diet - soft food Disposition - admit to PCU Admission and Anticipated Discharge Date Admission Date: December 04, 2023 History of Present Illness Chief Complaint: Fever Primary Care Provider: Girish Bauer III, Jossy Padron is an 82 year old female who presents to the ER from [facility] due to fever with recent pneumonia/UTI sepsis. She reports feeling lethargic for the last 2 days but otherwise has no complaints or pain. She denies any specific respiratory, urinary or gastrointestinal complaints. No headache or current chills. She was recently admitted to [facility] from October 22 - with sepsis from pneumonia or UTI requiring ICU admission for septic shock. Allergies Allergy/AdvReac Type Severity Reaction Status Date / Time aspirin Allergy Severe ANAPHYLAXIS Verified 12/04/23 12:18 duloxetine [From Cymbalta] Allergy Intermediate Rash Verified 12/04/23 12:18 NSAIDS (Non-Steroidal Allergy Unknown Verified 12/04/23 12:18 Anti-Inflamma lisinopril AdvReac Intermediate Cough Verified 12/04/23 12:18 Home Medications Medication Instructions Recorded Confirmed Type acetaminophen 325 mg tablet 650 mg PO Q6 PRN Fever Or Pain 09/28/23 12/04/23 History (Tylenol) brimonidine 0.2 %-timolol 0.5 % 1 drp OPB BID 09/28/23 12/04/23 History eye drops bumetanide 2 mg tablet 2 mg PO QAM 09/28/23 12/04/23 History calcium carbonate 1,000 mg PO Q2H PRN GERD 09/28/23 12/04/23 History carboxymethylcellulose sodium 1 % 1 drp OPL Q6H PRN Dry Eyes 09/28/23 12/04/23 History eye drops (Artificial Tears (carboxymethylcellulose)) famotidine 10 mg tablet 10 mg PO HS 09/28/23 12/04/23 History hydralazine 50 mg tablet 75 mg PO TID 09/28/23 12/04/23 History levothyroxine 75 mcg tablet 75 mcg PO QAM 09/28/23 12/04/23 History losartan 100 mg tablet 100 mg PO QAM 09/28/23 12/04/23 History magnesium oxide 500 mg PO DAILY 09/28/23 12/04/23 History ondansetron HCl 4 mg tablet 4 mg PO Q6H PRN Nausea 09/28/23 12/04/23 History oxycodone 5 mg tablet 5 mg PO Q6H PRN Pain 5-8 09/28/23 12/04/23 History oxycodone 5 mg tablet 10 mg PO Q6H PRN Pain 9-10 09/28/23 12/04/23 History pantoprazole 40 mg tablet,delayed 40 mg PO DAILY 09/28/23 12/04/23 History release polysaccharide iron complex 150 mg 150 mg PO DAILY 09/28/23 12/04/23 History iron capsule (Ferrex) ropinirole 2 mg tablet 2 mg PO HS 09/28/23 12/04/23 History travoprost 0.004 % eye drops 1 drp OPB QPM 09/28/23 12/04/23 History amlodipine 10 mg tablet 10 mg PO DAILY #10 tabs 10/03/23 12/04/23 Rx carvedilol 6.25 mg tablet 6.25 mg PO BID 10/23/23 12/04/23 History venlafaxine 150 mg 150 mg PO QAM 10/23/23 12/04/23 History capsule,extended release 24 hr apixaban 2.5 mg tablet (Eliquis) 2.5 mg PO BID #0 tabs 10/30/23 12/04/23 Rx cyanocobalamin (vitamin B-12) 500 1,000 mcg (2 x 500 mcg) PO QAM #0 10/30/23 12/04/23 Rx mcg tablet tabs folic acid 1 mg tablet 1 mg PO QAM #0 tabs 10/30/23 12/04/23 Rx loratadine 5 mg-pseudoephedrine ER 1 tab PO Q12H PRN allergy symptoms 10/30/23 12/04/23 Rx 120 mg tablet,extended #0 tabs release,12hr (Claritin-D 12 Hour) polyethylene glycol 3350 17 gram 17 g PO DAILY #0 ea 10/30/23 12/04/23 Rx oral powder packet (Miralax) potassium chloride 10 mEq 10 meq PO QAM #0 tabs 10/30/23 12/04/23 Rx tablet,extended release(part/cryst) sennosides 8.6 mg tablet (Senokot) 8.6 mg PO QAM #0 tabs 10/30/23 12/04/23 Rx bisacodyl 10 mg rectal suppository 10 mg SD DAILY PRN Constipation 12/04/23 12/04/23 History diclofenac sodium 1 % topical gel 2 g topical QID 12/04/23 12/04/23 History magnesium hydroxide 400 mg/5 mL 30 ml PO DAILY PRN Constipation 12/04/23 12/04/23 History oral suspension (Milk of Magnesia) prednisone 20 mg tablet 20 mg PO QAM 12/04/23 12/04/23 History pregabalin 75 mg capsule 75 mg PO TID 12/04/23 12/04/23 History sodium phosphates 19 gram-7 1 ml SD ONCE PRN Constipation 12/04/23 12/04/23 History gram/118 mL enema (Fleet Enema) venlafaxine 37.5 mg 37.5 mg PO QAM depression 12/04/23 12/04/23 History capsule,extended release 24 hr Past Med/Surg History Problem List (Updated 12/05/23 @ 04:39 by Emmett Burris MD) Acute pyelonephritis High serum lactate (Acute) Leukocytosis (Acute) Acute UTI (urinary tract infection) (Acute) Sepsis (Acute) Pulmonary HTN Acute heart failure with preserved ejection fraction (HFpEF) Chronic kidney disease, stage IV (severe) Steroid dependence UTI (urinary tract infection) Rheumatoid arthritis FOLLOWS DR. TREVINO Essential hypertension Insomnia Lower extremity ulceration Sepsis (Acute) Hypoxia (Acute) Degenerative spondylolisthesis Scoliosis of lumbar region due to degenerative disease of spine in adult Painful orthopaedic hardware Occult blood positive stool Anemia Generalized weakness (Acute) Bilateral edema of lower extremity (Acute) Acute kidney injury superimposed on chronic kidney disease (Acute) Acute UTI (urinary tract infection) (Acute) Greater trochanteric bursitis of left hip Bilateral leg edema Hypoxia (Acute) Weakness (Acute) Gastroenteritis (Acute) Hypertensive urgency Elevated troponin (Acute) Lumbar spinal stenosis Severe at L2-S1 Acute kidney injury superimposed on CKD Weakness (Acute) Fatigue (Acute) HTN (hypertension) (Chronic) Spinal stenosis, lumbar region with neurogenic claudication Hypothyroidism Depression Neuropathy (Chronic) FEET Osteoarthritis (Chronic) Restless leg syndrome (Chronic) Glaucoma (Chronic) Medical History (Updated 12/05/23 @ 04:39 by Emmett Burris MD) Gram-negative bacteremia Streptococcal bacteremia Community acquired pneumonia Septic shock Pneumonia Metabolic encephalopathy DVT (deep venous thrombosis) Non-ST elevation MA (NSTEMI) CKD (chronic kidney disease), stage III [facility]CC resident resident of [facility] Low hemoglobin and low hematocrit Dysphagia Gait abnormality Weakness Low back pain Personal history of venous thrombosis and embolism Other intestinal Escherichia coli infections Cognitive communication deficit Adult failure to thrive Herniated lumbar disc without myelopathy Left central disc herniation at L5-S1 Lumbar radiculopathy High cholesterol Anxiety Hypertension Surgical History History of total bilateral knee replacement (TKR) History of carpal tunnel release RIGHT HAND Hx of arthroscopy RIGHT KNEE (MENISCUS) Hx of tonsillectomy Hx of hysterectomy Hx laparoscopic cholecystectomy Family History Mother Family history of reaction to anesthesia SLOW TO AWAKEN Social History Smoking Status: Never smoker Second Hand Exposure: No; Do You Dip or Chew Tobacco: No; Hx Alcohol Use: No Hx Substance Use: No Preferred Language: Kazakh Communication Ability: Effective Communication Ability Comment: Pt disoriented, but able to communicate needs Visual Impairment: No Limitations Casing Mixer Required: No Beliefs That Will Affect Care: None marital status: Single Current Living Situation: Personal Care Facility Current Living Situation Comment: [facility] How many Children do You have: 0 Other Information That Helps Us Care for You: No Feels Safe at Home: Yes Safety Concerns: Feels Safe At This Time Assistive Devices: Lift Chair Review of Systems Review of Systems: All systems reviewed & are unremarkable except as noted in HPI & below Physical Exam Constitutional: well developed; + not well nourished and no acute distress Eyes: PERRL, conjunctivae normal, anicteric sclerae ENMT: Mouth: + dry oral mucous membranes Respiratory: normal respiratory effort, lungs clear to auscultation Cardiovascular: Rate/Rhythm: regular rhythm and + tachycardic Heart Sounds: + murmur (PEDRO loudest LUSB) Gastrointestinal (Abdomen): normal bowel sounds, soft, nontender, no hepatosplenomegaly Musculoskeletal: no cyanosis or clubbing, extremities motor strength 5/5 Skin: no rashes, warm and dry Neurologic: moves all extremities and awake; not confused Psychiatric: Orientation: alert, oriented to person and oriented to place; + not oriented to time Genitourinary: + CVA tenderness (left sided) Results & Data Results & Data Vital Signs (Past 12 Hours) Vital Signs Temp Pulse Pulse Resp BP BP Pulse Ox 12/04/23 12:05 36.8 C 91 H 13 102/44 L 96 12/04/23 11:34 91 H 15 93 12/04/23 11:34 93 12/04/23 10:33 38.4 C H 95 H 20 91/56 L 93 O2 Del Method 12/04/23 12:05 Room Air 12/04/23 11:34 Room Air 12/04/23 11:34 Room Air 12/04/23 10:33 Room Air Laboratory Results Abnormal lab results 12/04/23 12/04/23 Range/Units 10:43 11:33 WBC 16.98 H (4.8-10.8) K/ul RBC 3.25 L (4.20-5.40) M/uL Hgb 9.7 L (12.0-16.0) g/dl Hct 31.6 L (37.0-47.0) % MCHC 30.7 L (32.0-36.0) g/dL RDW Std Deviation 59.3 H (36.4-46.3) fL RDW Coeff of Mario 17.0 H (11.5-14.5) % MPV 8.6 L (9.4-12.4) fL Neut # (Auto) 15.03 H (1.40-6.50) K/uL Lymph # (Auto) 0.84 L (1.20-3.40) K/uL [place] # (Auto) 0.78 H (0.11-0.59) K/uL Immature Gran # (Auto) 0.25 H (0.01-0.20) K/uL BUN 39 H (6-23) mg/dl Creatinine 1.67 H (0.6-1.2) mg/dl BUN/Creatinine Ratio 23.4 H (10-20) Lactate 2.3 H* (0.4-2.0) mmol/L Calcium 8.0 L (8.6-10.3) mg/dl Troponin I High Sens 17.5 H (0-14) pg/ml Total Protein 5.2 L (6.0-8.3) gm/dl Albumin 3.0 L (3.4-5.0) gm/dl Globulin 2.2 L (2.5-4.0) gm/dl Procalcitonin 8.13 H (0-0.5) ng/ml Urine Appearance Cloudy A (Clear) Urine pH >= 9.0 H (4.5-7.5) Urine Protein 2+ H (Negative) Urine Nitrite Positive A (Negative) Ur Leukocyte Esterase 3+ H (Negative) Urine WBC (Auto) 21-50 H (0-5) /hpf U Hyaline Cast (Auto) 3-5 H (0-2) /lpf Urine Bacteria (Auto) 4+ H (None Seen) Triple Phos Crystals Present A (None Prsent) Diagnostic Findings XR chest 1V portable CLINICAL HISTORY: Sepsis TECHNIQUE: Single frontal radiograph of the chest was obtained. Comparison: Comparison is made to chest radiograph 11/12/2023 FINDINGS: No lines and tubes are seen. The cardiomediastinal silhouette is stable. Elevation of the right hemidiaphragm is seen. Atelectasis is in the right lower lung. No evidence of pleural effusion or pneumothorax. IMPRESSION: No acute abnormalities and in particular no radiographic evidence of pneumonia. Medications Administered ER Medications Given: Normal saline 2L bolus Acetaminophen 1000mg IV Cefepime 2000mg IV Vancomycin 1500mg IV Ertapenem 500mg IV Hydrocortisone 100mg IV ECG Rate (beats per minute): 95 Rhythm: normal sinus Findings: no acute ischemic change Comparison ECG Date: from (November 12, 2023) Change: no significant change Code Status & VTE Plan Code Status Full VTE Prophylaxis Plan VTE Prophylaxis will be ordered: Yes PG Care Time/CCT Total # of Minutes Spent Total Time Spent with Patient: Total time spent is greater than 50% in coordination of care (as documented) at patient's floor/unit and/or counseling patient: Coding Level of Care Code 62521 INT INP/OBS CARE MIN Diagnoses Sepsis without acute organ dysfunction, due to unspecified organism A41.9 Sepsis type: sepsis due to unspecified organism Sepsis acute organ dysfunction status: without acute organ dysfunction Acute pyelonephritis N10 Rheumatoid arthritis M06.9 Rheumatoid arthritis location: unspecified site Rheumatoid factor presence: unspecified presence (1) Sepsis Sepsis type: sepsis due to unspecified organism Sepsis acute organ dysfunction status: without acute organ dysfunction Qualified Code(s): A41.9 - Sepsis, unspecified organism (3) Rheumatoid arthritis Rheumatoid arthritis location: unspecified site Rheumatoid factor presence: unspecified presence Qualified Code(s): M06.9 - Rheumatoid arthritis, unspecified
[2023-12-04 12:41] LABS: Adenovirus PCR Not Detected (NotDetected); Bordetella parapertussis PCR Not Detected (NotDetected); Bordetella pertussis PCR Not Detected (NotDetected); Chlamydia pneumoniae PCR Not Detected (NotDetected); Coronavirus 229E PCR Not Detected (NotDetected); Coronavirus CoV-2 (COVID19)PCR Not Detected (NotDetected); Coronavirus HKU1 PCR Not Detected (NotDetected); Coronavirus NL63 PCR Not Detected (NotDetected); Coronavirus OC43PCR Not Detected (NotDetected); Human Metapneumovirus PCR Not Detected (NotDetected); Influenza A PCR Not Detected (NotDetected); Influenza B PCR Not Detected (NotDetected); Mycoplasma pneumoniae PCR Not Detected (NotDetected); Parainfluenza Virus 1 PCR Not Detected (NotDetected); Parainfluenza Virus 2 PCR Not Detected (NotDetected); Parainfluenza Virus 3 PCR Not Detected (NotDetected); Parainfluenza Virus 4 PCR Not Detected (NotDetected); Respiratory Syncytial VirusPCR Not Detected (NotDetected); Rhinovirus/Enterovirus PCR Not Detected (NotDetected)
[2023-12-04] MEDS: HYDROCORTISONE SOD SUCCINATE 100 MG/2 ML VIAL IV STA (13:08)
[2023-12-04] MEDS: LACTATED RINGER'S 1,000 ML IV ONE (13:14)
[2023-12-04] MEDS: HYDROCORTISONE SOD 50 MG in SYRINGE 0 ML IV SCH (18:17)
[2023-12-04] MEDS ORDERED: ARTIFICIAL TEARS OP PRN (21:05)
[2023-12-04] MEDS: LACTATED RINGER'S 1,000 ML IV SCH (22:13)
[2023-12-04] MEDS: TRAVOPROST Z 0.004% OPH SOLN 2.5 ML BTL OPB SCH (22:14)
[2023-12-04] MEDS: rOPINIRole HCL 2 MG TABLET PO SCH (22:15)
[2023-12-04] MEDS: APIXABAN 2.5 MG TAB PO SCH (22:15)
[2023-12-04] MEDS: FAMOTIDINE 10 MG TABLET PO SCH (22:16)
[2023-12-04] MEDS: DICLOFENAC SOD 1% GEL 100 GM TUBE EXT SCH (22:16)
[2023-12-04] MEDS: PREGABALIN 75 MG CAP PO SCH (22:18)
[2023-12-05] MEDS: VANCOMYCIN HCL 750 MG in SODIUM CHLORIDE 0.9% 250 ML IV SCH (01:27)
[2023-12-05 01:29] LABS: A calco-baum cmplx NotReported Not Detected (NotDetected); Bact fragilis Not Reported Not Detected (NotDetected); Blood Culture Id Panel See PCR Comment (NotDetected); C auris Not Reported Not Detected (NotDetected); Calbicans Not Reported Not Detected (NotDetected); Candida glabrata Not Reported Not Detected (NotDetected); Candida krusei Not Reported Not Detected (NotDetected); Cneoformans/gatti Not Reported Not Detected (NotDetected); Cparapsilosis Not Reported Not Detected (NotDetected); E cloacae compx Not Reported Not Detected (NotDetected); Efaecalis Not Reported Not Detected (NotDetected); Efaecium Not Reported Not Detected (NotDetected); Enterobacterales DETECTED (NotDetected); Enterobacterales Not Reported DETECTED (NotDetected); Escherichia coli Not Reported DETECTED (NotDetected); H influenzae Not Reported Not Detected (NotDetected); IMP Resistant Gene Not Detected (NotDetected); K aerogenes Not Reported Not Detected (NotDetected); KPC Resistant Gene Not Detected (NotDetected); Koxytoca Not Reported Not Detected (NotDetected); Kpneumoniae grp Not Reported Not Detected (NotDetected); Lmonocyt Not Reported Not Detected (NotDetected); N meningitidis Not Reported Not Detected (NotDetected); NDM Resistant Gene Not Detected (NotDetected); OXA 48 Like Resistant Gene Not Detected (NotDetected); P aeruginosa Not Reported Not Detected (NotDetected); Proteus spp Not Reported Not Detected (NotDetected); Salmonella spp Not Reported Not Detected (NotDetected); Staph lugdunensis Not Reported Not Detected (NotDetected); Staph spp. Not Reported Not Detected (NotDetected); Staphaureus Not Reported Not Detected (NotDetected); Staphepi Not Reported Not Detected (NotDetected); Stenmaltophilia Not Reported Not Detected (NotDetected); Strep agal(GrpB) Not Reported Not Detected (NotDetected); Strep pneum Not Reported Not Detected (NotDetected); Strep pyog (GrpA) Not Reported Not Detected (NotDetected); Strep spp Not Reported Not Detected (NotDetected); VIM Resistant Gene Not Detected (NotDetected); mcr-1 Colistin Resistant Gene Not Detected (NotDetected)
[2023-12-05 02:10] LABS: CTX-M Resistant Gene DETECTED (NotDetected)
[2023-12-05] MEDS: oxyCODONE HCL IR 5 MG TAB (IMMEDIATE RELEASE) PO PRN (03:15)
[2023-12-05] MEDS: LEVOTHYROXINE SODIUM 75 MCG TABLET PO SCH (06:13)
[2023-12-05 06:25] LABS: Hematocrit (blood only) 26.7 % (37.0-47.0); Hemoglobin 8.7 g/dl (12.0-16.0); Mean Corpuscular Hemoglobin 30.7 pg (25.0-34.0); Mean Corpuscular Hgb Conc 32.6 g/dL (32.0-36.0); Mean Corpuscular Volume 94.3 fL (80.0-100.0); Mean Platelet Volume 8.8 fL (9.4-12.4); Platelet Count 245 K/uL (130-400); RDW Coefficient of Variation 16.4 % (11.5-14.5); RDW Standard Deviation 56.9 fL (36.4-46.3); Red Blood Count 2.83 M/uL (4.20-5.40)
[2023-12-05 06:37] LABS: Albumin Globulin Ratio 1.3 (0.9-2); Albumin Level 2.9 gm/dl (3.4-5.0); BUN Creatinine Ratio 27.7 (10-20); Bilirubin,Total 0.5 mg/dl (0.2-1.0); Calcium 7.9 mg/dl (8.6-10.3); Creatinine Clr Calc Pharmacy 32.1 ml/min; Est GFR (African American) 44.9 ml/min; Est GFR (Non-African American) 38.7 ml/min; Globulin 2.3 gm/dl (2.5-4.0); Potassium 3.7 mmol/L (3.5-5.1); Total Protein 5.2 gm/dl (6.0-8.3)
[2023-12-05 06:56] LABS: Basophils # (auto) 0.03 K/uL (0.00-0.20); Basophils % (auto) 0.1 %; Immature Granulocytes # (auto) 0.19 K/uL (0.01-0.20); Immature Granulocytes % (auto) 0.9 %; Lymphocytes # (auto) 0.94 K/uL (1.20-3.40); Lymphocytes % (auto) 4.6 %; Monocytes # (auto) 0.77 K/uL (0.11-0.59); Monocytes % (auto) 3.7 %; Neutrophils # (auto) 18.67 K/uL (1.40-6.50); Neutrophils % (auto) 90.7 %
[2023-12-05] MEDS: predniSONE 20 MG TAB PO SCH (08:33)
[2023-12-05] MEDS: MAGNESIUM OXIDE 400 MG TAB PO SCH (08:33)
[2023-12-05] MEDS: IRON POLYSACCHARIDE COMPLEX 150 MG CAPSULE PO SCH (08:33)
[2023-12-05] MEDS: VENLAFAXINE HCL XR 150 MG CAPXR PO SCH (08:33)
[2023-12-05] MEDS: FOLIC ACID 1 MG TAB PO SCH (08:33)
[2023-12-05] MEDS: VENLAFAXINE HCL XR 37.5 MG CAPXR PO SCH (08:33)
[2023-12-05] MEDS: CYANOCOBALAMIN (B-12) 500 MCG TABLET PO SCH (08:33)
[2023-12-05] MEDS: SENNA 8.6 MG TAB PO SCH (08:34)
[2023-12-05] MEDS: POLYETHYLENE (MIRALAX) 17 GM PACK PO SCH (08:34)
[2023-12-05] MEDS: PANTOprazole 40 MG TAB PO SCH (09:55)
--- NOTE | 2023-12-05 11:31 | Hospitalist Progress Note ---
Date of Service December 05, 2023 Assessment & Plan (1) Sepsis: Plan: Urine cultures growing gram-negative's likely ESBL Empiric vancomycin + ertapenem Stress dose steroids with hydrocortisone 100mg IV now then 50mg q6h which can be weaned over 2-3 days as long as BP stable Continue antibiotics also full characterization of bacteria (2) Bacteremia: Plan: Blood cultures growing gram-negative, as result pending Continue empiric IV Ertapenem Consult infectious diseases (3) Acute pyelonephritis: Plan: Left CVA tenderness on admission Antibiotics as above (4) Rheumatoid arthritis: Plan: Chronic prednisone 20mg PO daily - therefore stress dose steroids started (5) Acute kidney injury superimposed on CKD: Plan VTE Prophylaxis - Eliquis (prior DVT) Diet - soft food Disposition - admit to PCU Admission and Anticipated Discharge Date Admission Date: December 04, 2023 Subjective Patient seen and examined, lying quietly in bed, says she feels a little better Review of Systems Review of Systems: All systems reviewed are negative, apart from the ones contained in the history. Physical Exam Physical Exam: The patient is awake, alert and oriented 3, well developed and well nourished, normocephalic and atraumatic, lying in bed and in no acute distress. HEENT--PERRL, EOMI, mucous membranes and oropharynx mildly dry Neck--supple. No JVD. No bruits. Thyroid normal, trachea midline, no adenopathy. Heart--normal S1 and S2. No murmurs, rubs or gallops. Lungs--clear bilaterally, no respiratory distress, no accessory muscle use. Abdomen--normal bowel sounds and soft. Extremities--no cyanosis or clubbing. No edema. Dermatologic--normal skin turgor, normal color, no abnormal lymph nodes, no rash. Neurologic--cranial nerves II through XII grossly intact. Rheumatologic--normal range of motion. Psychiatric--normal affect. Results & Data Results & Data Vital Signs (Past 12 Hours) Vital Signs Temp Pulse Resp BP Pulse Ox O2 Del Method 12/05/23 11:09 98.1 F 86 18 184/66 H 94 Room Air 12/05/23 07:22 97.7 F 87 16 171/88 H 96 Room Air 12/05/23 03:30 97.9 F 84 18 148/74 H 97 Room Air 12/05/23 00:15 98.4 F 87 18 108/64 98 Room Air PG Care Time/CCT Total # of Minutes Spent Total Time Spent with Patient: Total time spent is greater than 50% in coordination of care (as documented) at patient's floor/unit and/or counseling patient: Coding Level of Care Code 73495 SUB INP/OBS CARE 2/35MIN Diagnoses Sepsis without acute organ dysfunction, due to unspecified organism A41.9 Sepsis acute organ dysfunction status: without acute organ dysfunction Sepsis type: sepsis due to unspecified organism Bacteremia R78.81 Acute pyelonephritis N10 Rheumatoid arthritis M06.9 Rheumatoid arthritis location: unspecified site Rheumatoid factor presence: unspecified presence Acute kidney injury superimposed on CKD N17.9; N18.9 Time Spent (min) 35 (1) Sepsis Sepsis acute organ dysfunction status: without acute organ dysfunction Sepsis type: sepsis due to unspecified organism Qualified Code(s): A41.9 - Sepsis, unspecified organism (4) Rheumatoid arthritis Rheumatoid arthritis location: unspecified site Rheumatoid factor presence: unspecified presence Qualified Code(s): M06.9 - Rheumatoid arthritis, unspecified
[2023-12-05] MEDS ORDERED: ERTAPENEM SODIUM 500 MG in SYRINGE 0 ML IV SCH (12:00)
[2023-12-05] MEDS: ERTAPENEM SODIUM 1,000 MG in SYRINGE 0 ML IV SCH (13:37)
--- NOTE | 2023-12-05 14:28 | Infectious Disease Consult ---
Date of Consultation December 05, 2023 Assessment & Plan (1) ESBL (extended spectrum beta-lactamase) producing bacteria infection: (2) Bacteremia: (3) Acute pyelonephritis: (4) Leukocytosis: (5) Sepsis: Plan 82yo F with h/o rheumatoid arthritis on chronic prednisone, pulmonary HTN, RLE DVT, NSTEMI, CHF, CKD IV, bl TKR, lumbar stenosis, admission 09/27-10/02 with group G strep bacteremia 2/2 left heel ulcer/cellulitis s/p 14d of abx with CTX- > cefpodoxime, admission 10/22-10/29 with septic shock 2/2 ESBL E coli bacteremia/UTI +/- PNA s/p ertapenem x 14d and linezolid x 7d, who presented on 12/03 with fever x 1 day. She had reported feeling lethargic for the past 2 days but otherwise no complaints. On admission, she was febrile to 38.4, vss. Initial labs with WBC 16.98, Cr 1.67. AST/ALT wnl. Lactate 2.3. Trop elevated. PCT 8.13. UA with 21-50 WBC. CXR negative for abnormalities. She was started on vanc/ertapenem. BCx returned with GNR. ID consulted 12/04. ESBL E coli noted on PCR of BCX. GNR also on UCX. Per chart, it seems she also had some CVA tenderness with c/f pyelonephritis. Given recurrence of ESBL E coli, would favor pursuing imaging of urinary tract to assess for any stones or other abnormalities that may have developed and need to be addressed. She is also still has a high leukocytosis. Would follow up on culture results and sensitivities prior to determining final regimen. If any c/f complicating infection or worsening clinically, repeat BCx should be pursued and therefore would hold off on PICC placement for now. Would also ensure no concerning findings with her knees given h/o knee replacements or any other sites of infection (ie back). # GNR bacteremia PCR with E coli ESBL # C/f UTI 2/2 GNR # Sepsis # h/o RA on steroids # h/o bl TKA # CKD IV - would obtain renal imaging to r/o any underlying abnormalities (e.g., stone) - please assess for any other sites of infection ie knee pain/swelling/redness, spinal tenderness if present would pursue further workup - f/u blood and urine cx - continue ertapenem 1g IV daily (adjust for renal function as needed) - no PICC/midline yet until confirmed that no complicating conditions, await clinical improvement, and f/u on culture sensitivities (due to BCx bottle shortage, repeat BCx not being done unless complicated GNR infection) ID will continue to follow. If questions or concerns, contact Infectious Disease Call Center . Carlee James MD [facility], Division of Infectious Diseases IDConnect: [phone] Consultation Information This patient recommendation is based on a telemedicine consult request which was completed asynchronously through chart review and information provided by the primary physician. The patient was not seen or examined today. The evaluation is consultative in nature and all patient care and treatment decisions can either be accepted or rejected by the patient's primary hospital-based treating physician using their own independent medical judgment for their patient. Candle Maker contact information: Please call ID Connect Call Center [phone]. (Phone Number For Physician Use Only) Time Spent Reviewing Chart: 31+ minutes History of Present Illness Reason for Consultation: ESBL bacteremia Attending Physician: Escobar Bailey MD History of Present Illness 82yo F with h/o rheumatoid arthritis on chronic prednisone, pulmonary HTN, RLE DVT, NSTEMI, CHF, CKD IV, bl TKR, lumbar stenosis, admission 09/27-10/02 with group G strep bacteremia 2/2 left heel ulcer/cellulitis s/p 14d of abx with CTX- > cefpodoxime, admission 10/22-10/29 with septic shock 2/2 ESBL E coli bacteremia/UTI +/- PNA s/p ertapenem x 14d and linezolid x 7d, who presented on 12/03 with fever x 1 day. She had reported feeling lethargic for the past 2 days but otherwise no complaints. On admission, she was febrile to 38.4, vss. Initial labs with WBC 16.98, Cr 1.67. AST/ALT wnl. Lactate 2.3. Trop elevated. PCT 8.13. UA with 21-50 WBC. CXR negative for abnormalities. She was started on van c/ertapenem. BCx returned with GNR. ID consulted 12/04. I have not been able to see patient today due to limited telepresenter availability. Allergies Allergy/AdvReac Type Severity Reaction Status Date / Time aspirin Allergy Severe ANAPHYLAXIS Verified 12/04/23 12:18 duloxetine [From Cymbalta] Allergy Intermediate Rash Verified 12/04/23 12:18 NSAIDS (Non-Steroidal Allergy Unknown Verified 12/04/23 12:18 Anti-Inflamma lisinopril AdvReac Intermediate Cough Verified 12/04/23 12:18 Home Medications Medication Instructions Recorded Confirmed Type acetaminophen 325 mg tablet 650 mg PO Q6 PRN Fever Or Pain 09/28/23 12/04/23 History (Tylenol) brimonidine 0.2 %-timolol 0.5 % 1 drp OPB BID 09/28/23 12/04/23 History eye drops bumetanide 2 mg tablet 2 mg PO QAM 09/28/23 12/04/23 History calcium carbonate 1,000 mg PO Q2H PRN GERD 09/28/23 12/04/23 History carboxymethylcellulose sodium 1 % 1 drp OPL Q6H PRN Dry Eyes 09/28/23 12/04/23 History eye drops (Artificial Tears (carboxymethylcellulose)) famotidine 10 mg tablet 10 mg PO HS 09/28/23 12/04/23 History hydralazine 50 mg tablet 75 mg PO TID 09/28/23 12/04/23 History levothyroxine 75 mcg tablet 75 mcg PO QAM 09/28/23 12/04/23 History losartan 100 mg tablet 100 mg PO QAM 09/28/23 12/04/23 History magnesium oxide 500 mg PO DAILY 09/28/23 12/04/23 History ondansetron HCl 4 mg tablet 4 mg PO Q6H PRN Nausea 09/28/23 12/04/23 History oxycodone 5 mg tablet 5 mg PO Q6H PRN Pain 5-8 09/28/23 12/04/23 History oxycodone 5 mg tablet 10 mg PO Q6H PRN Pain 9-10 09/28/23 12/04/23 History pantoprazole 40 mg tablet,delayed 40 mg PO DAILY 09/28/23 12/04/23 History release polysaccharide iron complex 150 mg 150 mg PO DAILY 09/28/23 12/04/23 History iron capsule (Ferrex) ropinirole 2 mg tablet 2 mg PO HS 09/28/23 12/04/23 History travoprost 0.004 % eye drops 1 drp OPB QPM 09/28/23 12/04/23 History amlodipine 10 mg tablet 10 mg PO DAILY #10 tabs 10/03/23 12/04/23 Rx carvedilol 6.25 mg tablet 6.25 mg PO BID 10/23/23 12/04/23 History venlafaxine 150 mg 150 mg PO QAM 10/23/23 12/04/23 History capsule,extended release 24 hr apixaban 2.5 mg tablet (Eliquis) 2.5 mg PO BID #0 tabs 10/30/23 12/04/23 Rx cyanocobalamin (vitamin B-12) 500 1,000 mcg (2 x 500 mcg) PO QAM #0 10/30/23 12/04/23 Rx mcg tablet tabs folic acid 1 mg tablet 1 mg PO QAM #0 tabs 10/30/23 12/04/23 Rx loratadine 5 mg-pseudoephedrine ER 1 tab PO Q12H PRN allergy symptoms 10/30/23 12/04/23 Rx 120 mg tablet,extended #0 tabs release,12hr (Claritin-D 12 Hour) polyethylene glycol 3350 17 gram 17 g PO DAILY #0 ea 10/30/23 12/04/23 Rx oral powder packet (Miralax) potassium chloride 10 mEq 10 meq PO QAM #0 tabs 10/30/23 12/04/23 Rx tablet,extended release(part/cryst) sennosides 8.6 mg tablet (Senokot) 8.6 mg PO QAM #0 tabs 10/30/23 12/04/23 Rx bisacodyl 10 mg rectal suppository 10 mg AR DAILY PRN Constipation 12/04/23 12/04/23 History diclofenac sodium 1 % topical gel 2 g topical QID 12/04/23 12/04/23 History magnesium hydroxide 400 mg/5 mL 30 ml PO DAILY PRN Constipation 12/04/23 12/04/23 History oral suspension (Milk of Magnesia) prednisone 20 mg tablet 20 mg PO QAM 12/04/23 12/04/23 History pregabalin 75 mg capsule 75 mg PO TID 12/04/23 12/04/23 History sodium phosphates 19 gram-7 1 ml AR ONCE PRN Constipation 12/04/23 12/04/23 History gram/118 mL enema (Fleet Enema) venlafaxine 37.5 mg 37.5 mg PO QAM depression 12/04/23 12/04/23 History capsule,extended release 24 hr ertapenem 1 gram solution for 1 g IV DAILY 10 days #10 ea 12/05/23 Rx injection Patient History Medical History (Updated 12/05/23 @ 11:27 by Escobar Bailey MD) Gram-negative bacteremia Streptococcal bacteremia Community acquired pneumonia Septic shock Pneumonia Metabolic encephalopathy DVT (deep venous thrombosis) Non-ST elevation [facility] (NSTEMI) CKD (chronic kidney disease), stage III long term resident resident of [facility] Low hemoglobin and low hematocrit Dysphagia Gait abnormality Weakness Low back pain Personal history of venous thrombosis and embolism Other intestinal Escherichia coli infections Cognitive communication deficit Adult failure to thrive Herniated lumbar disc without myelopathy Left central disc herniation at L5-S1 Lumbar radiculopathy High cholesterol Anxiety Hypertension Surgical History History of total bilateral knee replacement (TKR) History of carpal tunnel release RIGHT HAND Hx of arthroscopy RIGHT KNEE (MENISCUS) Hx of tonsillectomy Hx of hysterectomy Hx laparoscopic cholecystectomy Family History Mother Family history of reaction to anesthesia SLOW TO AWAKEN Social History Smoking Status: Never smoker Second Hand Exposure: No; Do You Dip or Chew Tobacco: No; Hx Alcohol Use: No Hx Substance Use: No Preferred Language: [place] Verdean Communication Ability: Effective Communication Ability Comment: Pt disoriented, but able to communicate needs Visual Impairment: No Limitations Tile Layer Helper Required: No Beliefs That Will Affect Care: None marital status: Single Current Living Situation: Personal Care Facility Current Living Situation Comment: [facility] How many Children do You have: 0 Other Information That Helps Us Care for You: No Feels Safe at Home: Yes Safety Concerns: Feels Safe At This Time Assistive Devices: Mechanical Lift and Walker Results & Data Vital Signs (Past 12 Hours) Vital Signs Temp Pulse Resp BP Pulse Ox O2 Del Method 12/05/23 11:09 36.7 C 86 18 184/66 H 94 Room Air 12/05/23 07:22 36.5 C 87 16 171/88 H 96 Room Air 12/05/23 03:30 36.6 C 84 18 148/74 H 97 Room Air Laboratory Results Labs reviewed. Diagnostic Findings Imaging reviewed. (5) Sepsis Sepsis acute organ dysfunction status: without acute organ dysfunction Sepsis type: sepsis due to unspecified organism Qualified Code(s): A41.9 - Sepsis, unspecified organism
--- NOTE | 2023-12-05 15:23 | Ultrasound Report ---
RENAL ULTRASOUND HISTORY: Acute bilateral flank pain r/o stone COMPARISON: CT 10/23/2023. FINDINGS: Right kidney: 8.3 x 4.7 x 4.7 cm. No hydronephrosis. Cortical thinning redemonstrated. Left kidney: 6.1 x 3.2 x 3.4 cm. No hydronephrosis. Cortical thinning redemonstrated Bladder: Decompressed with Urb[place] catheter. IMPRESSION: 1. No renal calculi or hydronephrosis identified by ultrasound. 2. Decompressed urinary bladder with Urbina catheter in place. ACT 112: Negative or not required by law. Electronically signed by: Nic Winters M.D. 12/05/2023 3:22 PM
[2023-12-06 06:04] LABS: Hematocrit (blood only) 27.3 % (37.0-47.0); Hemoglobin 8.7 g/dl (12.0-16.0); Mean Corpuscular Hemoglobin 29.4 pg (25.0-34.0); Mean Corpuscular Hgb Conc 31.9 g/dL (32.0-36.0); Mean Corpuscular Volume 92.2 fL (80.0-100.0); Mean Platelet Volume 8.6 fL (9.4-12.4); Platelet Count 240 K/uL (130-400); RDW Coefficient of Variation 15.5 % (11.5-14.5); RDW Standard Deviation 52.5 fL (36.4-46.3); Red Blood Count 2.96 M/uL (4.20-5.40); White Blood Count 13.94 K/ul (4.8-10.8)
--- NOTE | 2023-12-06 06:14 | Electrocardiogram Report ---
Test Reason : Blood Pressure : */* mmHG Vent. Rate : 95 BPM Atrial Rate : 95 BPM P-R Int : 122 ms QRS Dur : 82 ms QT Int : 340 ms P-R-T Axes : 36 5 48 degrees QTcB Int : 427 ms Normal sinus rhythm Normal ECG When compared with ECG of 12-Nov-2023 11:43, No significant change was found Confirmed by Ed Martinez ([id number]) on 12/06/2023 6:13:54 AM Referred By: Confirmed By: Ed Martinez
[2023-12-06 06:19] LABS: BUN Creatinine Ratio 26.3 (10-20); Calcium 8.4 mg/dl (8.6-10.3); Creatinine Clr Calc Pharmacy 35.3 ml/min; Est GFR (African American) 50.4 ml/min; Est GFR (Non-African American) 43.5 ml/min; Potassium 3.2 mmol/L (3.5-5.1)
--- NOTE | 2023-12-06 10:21 | Infectious Disease Progress Nt ---
Date of Service December 06, 2023 Assessment & Plan (1) ESBL (extended spectrum beta-lactamase) producing bacteria infection: (2) Bacteremia: (3) Leukocytosis: (4) Sepsis: Plan 82yo F with h/o rheumatoid arthritis on chronic prednisone, pulmonary HTN, RLE DVT, NSTEMI, CHF, CKD IV, bl TKR, lumbar stenosis, admission 09/27-10/02 with group G strep bacteremia 2/2 left heel ulcer/cellulitis s/p 14d of abx with CTX- > cefpodoxime, admission 10/22-10/29 with septic shock 2/2 ESBL E coli bacteremia/UTI +/- PNA s/p ertapenem x 14d and linezolid x 7d, who presented on 12/03 with fever x 1 day. She had reported feeling lethargic for the past 2 days but otherwise no complaints. On admission, she was febrile to 38.4, vss. Initial labs with WBC 16.98, Cr 1.67. AST/ALT wnl. Lactate 2.3. Trop elevated. PCT 8.13. UA with 21-50 WBC. CXR negative for abnormalities. She was started on va nc/ertapenem. BCx returned with ESBL E coli. UCx with P mirabilis. ID consulted 12/04. RBUS without acute findings, no renal calculi or hydronephrosis. BCx and UCx have different organisms, though do note that there is now a second GNR noted on UCX but this is only 50k. She also doesnt report any urinary symptoms which makes me question urine as the source, though CVA tenderness was noted on admission. Since she reports new cervical pain and bilateral arm praresthesias for a few weeks, would obtain MRI C spine. Note prednisone dose was increased around the time when c spine pain developed. Left heel looks ok, though can get XR of foot to r/o any deeper involvement. She also has RLQ ttp on examination and further imaging can be considered given gram-negative bacteremia. If all else is negative, gut translocation can also be considered in ddx given recent 5 days of constipation with abdominal discomfort. I am going to repeat BCx to ensure clearance. # ESBL E coli bacteremia # UCx with P mirabilis, and GNR # Sepsis # C spine pain with paresthesias # RLQ tenderness # Chronic left heel ulcer # h/o RA on steroids # h/o bl TKA appear well # CKD IV - Cathleen ordered repeat BCX - would obtain MRI c-spine - consider CTAP given RLQ pain (limited due to her renal function) - would also consider XR left heel to evaluate ulcer - continue ertapenem 1g IV daily - f/u blood and urine cx ID will continue to follow. If questions or concerns, contact Infectious Disease Call Center . Carlee James MD [facility], Division of Infectious Diseases [facility]Connect: [phone] Admission and Anticipated Discharge Date Admission Date: December 04, 2023 Subjective Subsequent visit was provided via telemedicine using two-way real-time interactive telecommunication between the patient and the telemedicine provider. For the duration of the visit, the provider was performing the assessment from a different facility than the patient. This includesuse of bluetooth stethoscope forauscultationperformed by the telepresenter that the telemedicine provider can hear if described in the physical exam. Decorating Supervisor contact information: Please call ID Connect Call Center . (Phone Number For Physician Use Only) After establishing a telemedicine visit, patient was: Patient was verified with two unique identifiers, Patient/authorized rep acknowledged consent and understanding and Gave permission to continue telehealth session Time Spent with Patient: Subsequent => 55 min Patient seen and examined. She says that she has not had any dysuria or urinary discomfort. She also denies having any back pain but does say that she has had pain that radiates down her head and neck to her bl arms along with paresthesias, which has been going on for a few weeks. She reports her prednisone dose was increased from 5mg to 20mg 3 weeks ago and might be around the time when these pains started. She denies any oral sores or issues with her teeth. Does not have abdominal discomfort but notes that she had been constipated for 5 days and finally had a BM today, but at that time did have abdominal pain. She has a chronic left heel ulcer that has drainage that is unchanged. Also notes sore on her bottom. Physical Exam Physical Exam: General: Awake, alert, no acute distress HEENT: NC/AT, EOMI, mmm, no oral sores, good dentition Neck: supple Lungs: respirations non-labored Heart: nl peripheral perfusion Abdomen: soft, ttp in RLQ Back: some discomfort noted in cervical spine and on bilateral flanks Ext: no LE edema, left heel ulcer open with bloody drainage, granulation tissue in the center, no erythema Skin: small sore on her left buttock, not open, very shallow; groin with redness Neuro: moving all extremities Results & Data Vital Signs (Past 12 Hours) Vital Signs Temp Pulse Resp BP Pulse Ox O2 Del Method 12/06/23 07:30 37.3 C 73 18 179/80 H 100 Room Air 12/06/23 03:22 36.7 C 75 18 176/87 H 96 Room Air Laboratory Results Labs reviewed. Diagnostic Findings Imaging reviewed. (4) Sepsis Sepsis acute organ dysfunction status: without acute organ dysfunction Sepsis type: sepsis due to unspecified organism Qualified Code(s): A41.9 - Sepsis, unspecified organism
--- NOTE | 2023-12-06 10:53 | Hospitalist Progress Note ---
Date of Service December 06, 2023 Assessment & Plan (1) Sepsis: Plan: Urine cultures growing Proteus moss sensitive Initially Empiric vancomycin + ertapenem, vanc has been discontinued Stress dose steroids with hydrocortisone 100mg IV now then 50mg q6h which can be weaned over 2-3 days as long as BP stable Antibiotic mgt at the discretion of ID (2) Bacteremia: Plan: Blood cultures growing ESBL Continue IV Ertapenem Look for source of bacteremia Will obtain MRI C spine in view of neck pain and also CT abd in view of mild abd pain Consult infectious diseases (3) Acute pyelonephritis: Plan: Left CVA tenderness on admission Antibiotics as above (4) Rheumatoid arthritis: Plan: Chronic prednisone 20mg PO daily - therefore stress dose steroids started (5) Acute kidney injury superimposed on CKD: Plan VTE Prophylaxis - Eliquis (prior DVT) Diet - soft food Disposition - admit to PCU Admission and Anticipated Discharge Date Admission Date: December 04, 2023 Subjective patient seen and examined, complained of neck pain, which patient admits is not new Review of Systems Review of Systems: All systems reviewed are negative, apart from the ones contained in the history. Physical Exam Physical Exam: The patient is awake, alert and oriented 3, well developed and well nourished, normocephalic and atraumatic, lying in bed and in no acute distress. HEENT--PERRL, EOMI, mucous membranes and oropharynx mildly dry Neck--supple. No JVD. No bruits. Thyroid normal, trachea midline, no adeno lana. Heart--normal S1 and S2. No murmurs, rubs or gallops. Lungs--clear bilaterally, no respiratory distress, no accessory muscle use. Abdomen--normal bowel sounds and soft. Extremities--no cyanosis or clubbing. No edema. Dermatologic--normal skin turgor, normal color, no abnormal lymph nodes, no rash. Neurologic--cranial nerves II through XII grossly intact. Rheumatologic--normal range of motion. Psychiatric--normal affect. Results & Data Results & Data Vital Signs (Past 12 Hours) Vital Signs Temp Pulse Resp BP Pulse Ox O2 Del Method 12/06/23 07:30 99.1 F 73 18 179/80 H 100 Room Air 12/06/23 03:22 98.1 F 75 18 176/87 H 96 Room Air PG Care Time/CCT Total # of Minutes Spent Total Time Spent with Patient: Total time spent is greater than 50% in coordination of care (as documented) at patient's floor/unit and/or counseling patient: Coding Level of Care Code 11500 SUB INP/OBS CARE 2/35MIN Diagnoses Sepsis without acute organ dysfunction, due to unspecified organism A41.9 Sepsis acute organ dysfunction status: without acute organ dysfunction Sepsis type: sepsis due to unspecified organism Bacteremia R78.81 Acute pyelonephritis N10 Rheumatoid arthritis M06.9 Rheumatoid arthritis location: unspecified site Rheumatoid factor presence: unspecified presence Acute kidney injury superimposed on CKD N17.9; N18.9 Time Spent (min) 35 (1) Sepsis Sepsis acute organ dysfunction status: without acute organ dysfunction Sepsis type: sepsis due to unspecified organism Qualified Code(s): A41.9 - Sepsis, unspecified organism (4) Rheumatoid arthritis Rheumatoid arthritis location: unspecified site Rheumatoid factor presence: unspecified presence Qualified Code(s): M06.9 - Rheumatoid arthritis, unspecified
--- NOTE | 2023-12-06 12:49 | CT Scan Report ---
CT abd pelvis wo con CLINICAL HISTORY: right lq abd pain TECHNIQUE: Helical axial images of the abdomen and pelvis were obtained. Automated dose lowering tech niques and/or adjustment according to patient size were utilized for this exam. This exam was perfor med without intravenous contrast. CT DOSE: 888.38 mGy.cm COMPARISON: Comparison is made to CT abdomen pelvis 10/23/2023 FINDINGS: Lower chest: Trace bilateral pleural effusions are seen. Cardiomegaly is seen with biatrial enlargem ent. Liver: Unremarkable. No focal lesions are seen. Gallbladder and biliary tree: Patient is status post cholecystectomy. No intra- or extrahepatic bilia ry ductal dilation. Pancreas: Unremarkable, no focal lesions. Spleen: Unremarkable. Adrenals: Unremarkable. Kidneys and ureters: Unremarkable. Bladder: Diffuse homogeneous wall thickening is seen. Small amount of intraluminal gas is noted. Reproductive organs: Patient is status post hysterectomy. Bowel: Diverticulosis is seen without diverticulitis. The appendix is normal. There is a moderate hia anderson hernia. Lymph nodes Retroperitoneal: Unremarkable. Pelvic: Unremarkable. Mesenteric: Unremarkable. Peritoneum: Normal. Vessels: Atherosclerotic calcifications are seen. Abdominal wall: Right fat-containing inguinal hernia. This hernia also contains part of a nonobstruct ed loop of bowel. Bones: Degenerative changes in the visualized spine. IMPRESSION: 1. No acute abnormalities to explain right lower quadrant pain. 2. Diverticulosis without diverticulitis. 3. No obstructive stone. 4. Status post appendectomy and cholecystomy. ACT 112: Negative or not required by law. Electronically signed by: Gui Coy M.D. 12/06/2023 12:48 PM
--- NOTE | 2023-12-06 16:26 | Magnetic Resonance Report ---
MRI OF THE CERVICAL SPINE WITHOUT IV CONTRAST CLINICAL HISTORY: Cervicalgia. Upper extremity numbness. COMPARISON STUDY: Cervical spine radiographs dated 11/13/2017. TECHNIQUE: MRI of the cervical spine was performed utilizing various T1 and T2-weighted sequences in the axial and sagittal planes. IV contrast was not administered for this examination. FINDINGS: Cervical spine: Vertebral body height is maintained throughout the cervical spine. There is minimal r etrolisthesis at C4-C5 and C5-C6. Alignment is otherwise preserved. There is straightening of the cer vical lordosis. Anterior osteophytes are seen throughout. The atlantodens articulation is maintained. The spinous processes appear intact. There is a large hemangioma in the body of T3. Fatty marrow isidra nges suggested in the clivus, as well as the bodies of C2 and C3. No destructive bony lesion is clear ly seen. There is chronic degenerative endplate changes seen at several levels, greatest at C4-C5, C5 -C6, and C6-C7. Mild endplate edema is noted at C4-C5 and C5-C6. Intervertebral discs: Disc desiccation and loss of height is seen throughout the cervical spine. Loss of height is severe at C4-C5, C5-C6, and C6-C7. Spinal cord: The cervical cord is normal in morphology and signal intensity. C2-C3: The central canal is clear. Facet arthropathy contributes to minimal left-sided neural foramin al narrowing. The right neural foramen is patent. C3-C4: A posterior disc osteophyte complex effaces the ventral subarachnoid space. Uncovertebral and facet arthropathy contributes to severe left and mild to moderate right neural foraminal stenosis. Th is may impinge in the exiting left C4 nerve root. C4-C5: A posterior disc osteophyte complex eccentric to the left effaces the ventral cord. Uncoverteb ral and facet arthropathy contribute to severe right and moderate left neural foraminal stenosis. Thi s may impinge on the exiting right C5 nerve root. C5-C6: A posterior disc osteophyte complex abuts the ventral cord. There are small lateral disc bulge s. In conjunction with facet arthropathy there is severe bilateral neural foraminal stenosis. This ma y impinge on the exiting bilateral C6 nerve roots. C6-C7: A posterior disc osteophyte complex effaces the ventral subarachnoid space. There are small la teral disc bulges. In conjunction with facet arthropathy there is moderate to severe left and moderat e right neural foraminal stenosis. This may impinge on the exiting left C7 nerve root. C7-T1: Facet arthropathy is of no consequence. The central canal and neural foramina are patent. Soft tissues: The prevertebral and paraspinous soft tissues are normal as imaged. Brain parenchyma: The visualized brain parenchyma at the skull base is normal in appearance. IMPRESSION: 1. Multilevel cervical spondylosis as detailed above. See discussion for detailed level by level anal ysis. 2. The cervical cord is normal in morphology and signal intensity. 3. No destructive bony process is seen. 4. Degenerative disc disease as above with associated endplate change. Dictated: 12/06/2023 3:09 PM Transcribed: 12/06/2023 3:44 PM Isaac [id number] [email or web address] [id number] Electronically signed by: Ulises Yoo M.D. 12/06/2023 4:24 PM
--- NOTE | 2023-12-06 16:28 | XRay Report ---
XR calcaneus LT min 2V CLINICAL HISTORY: r/o osteomyelitis TECHNIQUE: 2 views of the left calcaneus were obtained. Comparison: None available at the time of this dictation. FINDINGS: No evidence of bony erosion is seen. The alignment is anatomic. Degenerative changes are seen. Vascul ar calcifications are seen. IMPRESSION: No radiographic evidence of osteomyelitis. If clinical concern remains, MRI is a more sensitive modal ity. ACT 112: Negative or not required by law. Electronically signed by: Gui Coy M.D. 12/06/2023 4:27 PM
[2023-12-06 19:47] VITALS: RESP 18
[2023-12-07] MEDS: hydrALAZINE TAB 50 MG TAB PO ONE (03:46)
[2023-12-07 07:26] LABS: Hemoglobin 9.1 g/dl (12.0-16.0); Mean Corpuscular Hemoglobin 29.7 pg (25.0-34.0); Mean Corpuscular Hgb Conc 32.5 g/dL (32.0-36.0); Mean Corpuscular Volume 91.5 fL (80.0-100.0); Mean Platelet Volume 8.5 fL (9.4-12.4); Platelet Count 248 K/uL (130-400); RDW Coefficient of Variation 15.1 % (11.5-14.5); RDW Standard Deviation 50.2 fL (36.4-46.3); Red Blood Count 3.06 M/uL (4.20-5.40); White Blood Count 11.43 K/ul (4.8-10.8)
[2023-12-07 07:45] LABS: Calcium 8.4 mg/dl (8.6-10.3); Potassium 2.8 mmol/L (3.5-5.1)
[2023-12-07 07:58] VITALS: TEMP 98.1
[2023-12-07] MEDS: POTASSIUM CHLORIDE CRTAB 20 MEQ TABCR PO STA (08:28)
[2023-12-07 08:41] LABS: BUN Creatinine Ratio 28.6 (10-20); Creatinine Clr Calc Pharmacy 37.2 ml/min; Est GFR (African American) 53.7 ml/min; Est GFR (Non-African American) 46.4 ml/min
--- NOTE | 2023-12-07 11:03 | Infectious Disease Progress Nt ---
Date of Service December 07, 2023 Assessment & Plan (1) ESBL (extended spectrum beta-lactamase) producing bacteria infection: (2) Bacteremia: (3) Leukocytosis: (4) Sepsis: Plan 82yo F with h/o rheumatoid arthritis on chronic prednisone, pulmonary HTN, RLE DVT, NSTEMI, CHF, CKD IV, bl TKR, lumbar stenosis, admission 09/27-10/02 with group G strep bacteremia 2/2 left heel ulcer/cellulitis s/p 14d of abx with CTX- > cefpodoxime, admission 10/22-10/29 with septic shock 2/2 ESBL E coli bacteremia/UTI +/- PNA s/p ertapenem x 14d and linezolid x 7d, who presented on 12/03 with fever x 1 day. She had reported feeling lethargic for the past 2 days but otherwise no complaints. On admission, she was febrile to 38.4, vss. Initial labs with WBC 16.98, Cr 1.67. AST/ALT wnl. Lactate 2.3. Trop elevated. PCT 8.13. UA with 21-50 WBC. CXR negative for abnormalities. She was started on va nc/ertapenem. BCx returned with ESBL E coli. UCx with P mirabilis and ESBL E coli. ID consulted 12/04. RBUS without acute findings, no renal calculi or hydronephrosis. Since initially UCX and BCX results were discordant, further w/u for bacteremia was pursued. CTAP unremarkable. MRI c spine without findings of discitis/OM or abscess. XR of left ankle negative for OM. BCX were repeated and so far negative. WBC downtrending, remains afebrile since admission. E coli bacteremia could be from urine though only 50k cfu noted on UCX or from gut translocation. She didnt endorse any urinary symptoms, though admission note had noted CVA tenderness. Given w/u for other sources is negative, she can complete a 2 week course of abx (longer course given recurrence). Since she has clinical improvement and non-complicating gram negative bacteremia, I think it is reasonable to go ahead with picc/midline without waiting 48hrs of negative BCx, since often repeat BCX for gram negative bacteremia are not needed. # ESBL E coli bacteremia # UCx with P mirabilis and ESBL E Coli admission note with left sided CVA tenderness # Chronic left heel ulcer # h/o RA on steroids # h/o bl TKA appear well # CKD IV - f/u BCX - continue ertapenem 1g IV daily - can place picc/midline - plan for 14 days of abx with ertapenem starting 12/05, eot 12/18 - weekly CBC w diff and CMP while on IV abx - can follow up with PCP - Cathleen discussed the side effects of IV abx with patient ID will discontinue active follow up at this time. Please do not hesitate to reconsult the Infectious Diseases service as needed. Carlee James MD [facility], Division of Infectious Diseases [facility]: [phone] Admission and Anticipated Discharge Date Admission Date: December 04, 2023 Subjective Subsequent visit was provided via telemedicine using two-way real-time interactive telecommunication between the patient and the telemedicine provider. For the duration of the visit, the provider was performing the assessment from a different facility than the patient. This includesuse of blueStudiekringoth stethos cope forauscultationperformed by the telepresenter that the telemedicine provider can hear if described in the physical exam. [place] contact information: Please call [facility] Call Center . (Phone Number For Physician Use Only) After establishing a telemedicine visit, patient was: Patient was verified with two unique identifiers, Patient/authorized rep acknowledged consent and understanding and Gave permission to continue telehealth session Time Spent with Patient: Subsequent => 35 min Patient reports feeling well. She denies any abdominal pain or diarrhea. She does have bl shoulder pain, no swelling. Physical Exam Physical Exam: General: Awake, alert, no acute distress HEENT: NC/AT, EOMI, mmm, no oral sores, good dentition Neck: supple Lungs: respirations non-labored Heart: nl peripheral perfusion Abdomen: soft, nontender Ext: no LE edema, bl shoulders without redness or swelling Results & Data Vital Signs (Past 12 Hours) Vital Signs Temp Pulse Pulse Resp BP BP Pulse Ox 12/07/23 07:58 36.7 C 71 18 159/96 H 96 12/07/23 07:57 75 12/07/23 05:57 36.3 C L 77 18 162/73 H 99 12/07/23 03:26 37.1 C 69 18 181/74 H 95 12/07/23 00:42 36.7 C 12/07/23 00:25 73 O2 Del Method 12/07/23 07:58 Room Air 12/07/23 07:57 12/07/23 05:57 Room Air 12/07/23 03:26 Room Air 12/07/23 00:42 12/07/23 00:25 Laboratory Results 12/03 BCX: ESBL E coli 12/03 UCX: Proteus mirabilis 100k (moss-sensitive), ESBL E coli 50k 12/05 BCX: ngtd Abx: Ertapenem 12/03-present Cefepime 12/03 Vanc 12/03-12/04 (4) Sepsis Sepsis acute organ dysfunction status: without acute organ dysfunction Sepsis type: sepsis due to unspecified organism Qualified Code(s): A41.9 - Sepsis, unspecified organism
--- NOTE | 2023-12-07 12:00 | Discharge Summary ---
Date of Service December 07, 2023 Admission HPI Per Admitting Provider Jossy Padron is an 82 year old female who presents to the ER from [facility] custodial due to fever with recent pneumonia/UTI sepsis. She reports feeling lethargic for the last 2 days but otherwise has no complaints or pain. She denies any specific respiratory, urinary or gastrointestinal complaints. No headache or current chills. She was recently admitted to [facility] from October 22 - with sepsis from pneumonia or UTI requiring ICU admission for septic shock. Admission Exam (Per Admitting) Constitutional The patient is awake, alert and oriented 3, well developed and well nourished, normocephalic and atraumatic, lying in bed and in no acute distress. HEENT--PERRL, EOMI, mucous membranes and oropharynx mildly dry Neck--supple. No JVD. No bruits. Thyroid normal, trachea midline, no adenopathy. Heart--normal S1 and S2. No murmurs, rubs or gallops. Lungs--clear bilaterally, no respiratory distress, no accessory muscle use. Abdomen--normal bowel sounds and soft. Extremities--no cyanosis or clubbing. No edema. Dermatologic--normal skin turgor, normal color, no abnormal lymph nodes, no rash. Neurologic--cranial nerves II through XII grossly intact. Rheumatologic--normal range of motion. Psychiatric--normal affect. Discharge Data Consultations 12/04/23 11:46 ED Decision to Admit Stat 12/05/23 11:06 Consult Infectious Diseases Routine Hospital Course (1) Sepsis: Urine cultures growing Proteus moss sensitive Initially Empiric vancomycin + ertapenem, vanc has been discontinued Stress dose steroids with hydrocortisone 100mg IV now then 50mg q6h which can be weaned over 2-3 days as long as BP stable Antibiotic mgt at the discretion of ID (2) Bacteremia: Blood cultures growing ESBL Continue IV Ertapenem Look for source of bacteremia MRI C spine showed only degenrative changes, CT abd was unremarkable Compelete 2 weeks of IV Ertapenem through a picc line, end date 12/18 (3) Acute pyelonephritis: Left CVA tenderness on admission Antibiotics as above (4) Rheumatoid arthritis: Chronic prednisone 20mg PO daily - therefore stress dose steroids started (5) Acute kidney injury superimposed on CKD: Plan VTE Prophylaxis - Eliquis (prior DVT) Diet - soft food Disposition - admit to PCU Coding Level of Care Code 86875 INP/OBS DISCH >30 MIN Diagnoses Sepsis without acute organ dysfunction, due to unspecified organism A41.9 Sepsis acute organ dysfunction status: without acute organ dysfunction Sepsis type: sepsis due to unspecified organism Bacteremia R78.81 Acute pyelonephritis N10 Rheumatoid arthritis M06.9 Rheumatoid arthritis location: unspecified site Rheumatoid factor presence: unspecified presence Acute kidney injury superimposed on CKD N17.9; N18.9 Time Spent (min) 35
[2023-12-07 12:12] VITALS: O2SAT 97
[2023-12-07 14:50] VITALS: BP 181/74; PULSE 67
== END 2023-12-07 15:03 | DRG 872 ==
LOC: ED 10:12 → SUATTDRO 12:33 → EDINP 12:33 → 4W 14:21

== ENCOUNTER 2024-01-10 17:48 | Inpatient (IN) ==
--- NOTE | 2024-01-10 18:08 | Emergency Department Note ---
Impression & Plan Weakness, Acute UTI, Sepsis ED Provider Note Provider: Steven Lia MD DATE OF SERVICE: 01/10/2024 CHIEF COMPLAINT: Weakness, elevated heart rate, UTI HISTORY OF PRESENT ILLNESS: Patient is a 83-year-old female past medical history of CKD, heart failure, pulmonary hypertension, UTI, ESBL, thyroidism, hypertension presenting here via ambulance from [facility] where she resides. Patient with a recurrent course of sepsis and urinary tract infections as well as pneumonia over the last month or 2. Hospitalized here about a month ago. Has been on several antibiotics since that time. According facility was more lethargic and had urinary symptoms developing over the past week. Positive urine test today but did not yet take her first dose of Cipro that was prescribed. Found to be more fatigued and weak lethargic and tachycardic and brought here for further care. Patient denies any falls. Reports a little bit of soreness in her upper arms and hips. She denies significant chest pain or abdominal pain to me or trouble breathing. States she did drink a good bit of fluid today but did not eat very much. Denies headache. PAST MEDICAL HISTORY: As noted above MEDICATIONS: Reviewed medication list from the facility currently on Eliquis (from the chart appears a history of VTE) as well as chronic prednisone for rheumatoid arthritis SOCIAL HISTORY: Resides at [facility] PHYSICAL EXAM: GENERAL: Eyes closed but easily arousable to verbal stimuli, alert and oriented to person in no acute distress on stretcher. Head: normocephalic and atraumatic EYES: No injection, discharge or icterus. PERRL, EOMI. NECK: Trachea midline. Supple. ENT: Mucous membranes pink and moist. LUNGS: Airway patent. No retractions. Breath sounds clear HEART: Regular tachycardic rate and rhythm. No chest wall tenderness ABDOMEN: Soft and non-tender, without guarding or rebound. Stable pelvis a little bit of pain with ROM of the hips. SKIN: Acyanotic, warm, dry, without rashes EXTREMITIES: Patient with slight left heel wound bandaged less than a centimeter in size with 2+ bilateral lower extremity edema below the knees. No significant erythema. NEUROLOGICAL: No focal deficits moving all extremities to command. No aphasia. No facial droop or slurred speech. Normal strength and tone in the extremities. Sensation to gross touch normal. EK bpm sinus tachycardia. No PVC or PAC. No acute ST segment elevation or depression with QTc of 408. CONTINUOUS CARDIAC MONITORING: was ordered and showed a heart rate of 80s-120s bpm in sinus tachycardia to normal sinus rhythm Patient's laboratory studies and imaging reviewed. Differential includes Infection, dehydration, metabolic abnormality, hypo/hyperglycemia, electrolyte disturbance, anemia, hypoxia, cardiac sources, intracerebral event, toxicologic, neurologic, as well as other pathologies. IMPRESSION/MEDICAL DECISION MAKING: Reviewed recent hospitalization and discharge summary past hospitalization here at the end of November. Reviewed prior microbiology with history of Pseudomonas UTIs as well as ESBL bacteremia. Work from [facility] indicates she has been on Cipro just over a week ago and doxycycline before then completed course of ertapenem towards the beginning of the month. Patient denies current respiratory issues and not hypoxic. Moving all extremities and no significant focal deficits. Is noted be somewhat tachycardic but does have some swelling of the lower legs 1 to be cautious avoid fluid overload given her cardiac history reported. Cultures will be obtained. Straight cath urine obtained but urinalysis available in the computer from the appears grossly positive. Will obtain chest x-ray as well as given her confusion a CT of the head. Will obtain a CT abdomen pelvis without contrast given her history of CKD and evaluate for any occult intra-abdominal pathologies particularly kidney stone. Fairly benign abdominal exam at this time. Given the significant clinical concern and resistant history covered empirically with a dose of meropenem. Patient is febrile upon arrival given dose of IV Tylenol is not as listed being administered at the facility. Urinalysis appears somewhat concerning for infection with a bit of blood noted on microscopy. Lactate not significantly elevated at 2.3. Chest x-ray per my review and interpretation with no findings of pneumonia pneumothorax or significant edema and given a 500 mL normal saline fluid bolus avoiding additional as she is not hypotensive and wish to avoid fluid overload given her history. Does appear septic with leukocytosis of almost 16 and procalcitonin of 32. Not particularly acidotic or hypercarbic here. CT of the head per radiology without findings of acute intracranial bleed. Very slight troponin elevation at 39 likely more demand in the setting of her illness. CT abdomen pelvis shows improvement of previous pleural effusions no other acute intra-abdominal pathology reported. Again clinical concern for sepsis possible pyonephritis and will admit for further care. Incidentally respiratory viral panel positive for entero-/rhinovirus. DIAGNOSIS: Acute UTI, weakness, sepsis, entero-/rhinovirus DISPOSITION: Hospitalist will evaluate Patient was agreeable with this plan. Past Med/Surg History Problem List (Updated 01/10/24 @ 22:02 by Background Justin) Pulmonary hypertension Thrombocytopenia DENNIS (acute kidney injury) Acute UTI (Acute) Bacteremia ESBL (extended spectrum beta-lactamase) producing bacteria infection Acute pyelonephritis High serum lactate (Acute) Leukocytosis (Acute) Sepsis (Acute) Pulmonary HTN Acute heart failure with preserved ejection fraction (HFpEF) Chronic kidney disease, stage IV (severe) Steroid dependence UTI (urinary tract infection) Rheumatoid arthritis FOLLOWS DR. TREVINO Essential hypertension Insomnia Lower extremity ulceration Sepsis (Acute) Hypoxia (Acute) Degenerative spondylolisthesis Scoliosis of lumbar region due to degenerative disease of spine in adult Painful orthopaedic hardware Occult blood positive stool Anemia Generalized weakness (Acute) Bilateral edema of lower extremity (Acute) Acute kidney injury superimposed on chronic kidney disease (Acute) Acute UTI (urinary tract infection) (Acute) Greater trochanteric bursitis of left hip Bilateral leg edema Hypoxia (Acute) Weakness (Acute) Gastroenteritis (Acute) Hypertensive urgency Elevated troponin (Acute) Lumbar spinal stenosis Severe at L2-S1 Acute kidney injury superimposed on CKD Weakness (Acute) Fatigue (Acute) HTN (hypertension) (Chronic) Spinal stenosis, lumbar region with neurogenic claudication Hypothyroidism Depression Neuropathy (Chronic) FEET Osteoarthritis (Chronic) Restless leg syndrome (Chronic) Glaucoma (Chronic) Medical History (Updated 01/10/24 @ 22:02 by Background Daemon) Gram-negative bacteremia Streptococcal bacteremia Community acquired pneumonia Septic shock Pneumonia Metabolic encephalopathy DVT (deep venous thrombosis) Non-ST elevation NE (NSTEMI) CKD (chronic kidney disease), stage III halfway resident resident of [facility] Low hemoglobin and low hematocrit Dysphagia Gait abnormality Weakness Low back pain Personal history of venous thrombosis and embolism Other intestinal Escherichia coli infections Cognitive communication deficit Adult failure to thrive Herniated lumbar disc without myelopathy Left central disc herniation at L5-S1 Lumbar radiculopathy High cholesterol Anxiety Hypertension Surgical History History of total bilateral knee replacement (TKR) History of carpal tunnel release RIGHT HAND Hx of arthroscopy RIGHT KNEE (MENISCUS) Hx of tonsillectomy Hx of hysterectomy Hx laparoscopic cholecystectomy Family History Mother Family history of reaction to anesthesia SLOW TO AWAKEN Social History Smoking Status: Never smoker Second Hand Exposure: No; Do You Dip or Chew Tobacco: No; Hx Alcohol Use: No Hx Substance Use: No Preferred Language: Persian Communication Ability: Effective Communication Ability Comment: Pt disoriented, but able to communicate needs Visual Impairment: No Limitations Lead Pony Rider Required: No Beliefs That Will Affect Care: None marital status: Single Current Living Situation: Personal Care Facility Current Living Situation Comment: [facility] How many Children do You have: 0 Feels Safe at Home: Yes Assistive Devices: Mechanical Lift and Walker Allergies Allergies Allergy/AdvReac Type Severity Reaction Status Date / Time aspirin Allergy Severe ANAPHYLAXIS Verified 01/10/24 18:45 duloxetine [From Cymbalta] Allergy Intermediate Rash Verified 01/10/24 18:45 NSAIDS (Non-Steroidal Allergy Unknown Verified 01/10/24 18:45 Anti-Inflamma lisinopril AdvReac Intermediate Cough Verified 01/10/24 18:45 Home Meds Home Medications Medication Instructions Recorded Confirmed acetaminophen 325 mg tablet 650 mg PO Q6 PRN Fever Or Pain 09/28/23 01/10/24 (Tylenol) brimonidine 0.2 %-timolol 0.5 % 1 drp OPB BID 09/28/23 01/10/24 eye drops bumetanide 2 mg tablet 2 mg PO QAM 09/28/23 01/10/24 calcium carbonate 1,000 mg PO Q2H PRN Heartburn 09/28/23 01/10/24 carboxymethylcellulose sodium 1 % 1 drp OPL Q6H PRN DRYNESS/WATERING 09/28/23 01/10/24 eye drops (Artificial Tears (carboxymethylcellulose)) famotidine 10 mg tablet 10 mg PO HS 09/28/23 01/10/24 hydralazine 50 mg tablet 75 mg PO TID 09/28/23 01/10/24 levothyroxine 75 mcg tablet 75 mcg PO QAM 09/28/23 01/10/24 losartan 100 mg tablet 100 mg PO QAM 09/28/23 01/10/24 magnesium oxide 500 mg PO HS 09/28/23 01/10/24 ondansetron HCl 4 mg tablet 4 mg PO Q6H PRN Nausea 09/28/23 01/10/24 oxycodone 5 mg tablet 5 mg PO Q6H PRN Pain 5-8 09/28/23 01/10/24 oxycodone 5 mg tablet 10 mg PO Q6H PRN Pain 9-10 09/28/23 01/10/24 pantoprazole 40 mg tablet,delayed 40 mg PO DAILY 09/28/23 01/10/24 release ropinirole 2 mg tablet 2 mg PO HS 09/28/23 01/10/24 travoprost 0.004 % eye drops 1 drp OPB HS 09/28/23 01/10/24 carvedilol 6.25 mg tablet 6.25 mg PO BID 10/23/23 01/10/24 venlafaxine 150 mg 150 mg PO QAM 10/23/23 01/10/24 capsule,extended release 24 hr diclofenac sodium 1 % topical gel 2 g topical QID 12/04/23 01/10/24 prednisone 20 mg tablet 20 mg PO QAM 12/04/23 01/10/24 pregabalin 75 mg capsule 75 mg PO TID 12/04/23 01/10/24 venlafaxine 37.5 mg 37.5 mg PO QAM depression 12/04/23 01/10/24 capsule,extended release 24 hr polyethylene glycol 3350 17 gram 17 g PO QAM 01/10/24 01/10/24 oral powder packet (Miralax) polysaccharide iron complex 150 mg 150 mg PO DAILY 01/10/24 01/10/24 iron capsule (Ferrex) potassium chloride 20 mEq 20 meq PO TID 01/10/24 01/10/24 tablet,extended release(part/cryst) protein supplement 1 ea PO BID 01/10/24 01/10/24 Previous Rx's Medication Instructions Recorded amlodipine 10 mg tablet 10 mg PO DAILY #10 tabs 10/03/23 apixaban 2.5 mg tablet (Eliquis) 2.5 mg PO BID #0 tabs 10/30/23 cyanocobalamin (vitamin B-12) 500 1,000 mcg (2 x 500 mcg) PO QAM #0 10/30/23 mcg tablet tabs folic acid 1 mg tablet 1 mg PO QAM #0 tabs 10/30/23 loratadine 5 mg-pseudoephedrine ER 1 tab PO Q12H PRN allergy symptoms 10/30/23 120 mg tablet,extended #0 tabs release,12hr (Claritin-D 12 Hour) sennosides 8.6 mg tablet (Senokot) 8.6 mg PO QAM #0 tabs 10/30/23 Results & Data (ED) Vital Signs Vital Signs - 24 hr 01/10/24 17:56 01/10/24 17:56 01/10/24 18:00 Temperature 37 C Temperature Source Oral Pulse Rate 115 H 115 H Pulse Rate [Apical] Pulse Rhythm [Apical] Pulse Strength [Apical] Respiratory Rate 14 Respiratory Effort / Characteristics Respiratory Depth Respiratory Pattern Blood Pressure Blood Pressure [Left Arm] Blood Pressure Mean Blood Pressure Mean [Left Arm] Pulse Oximetry 94 Oxygen Delivery Method Room Air Room Air Sepsis Recent Fever Within 48 Hours No Sepsis New/Unexplained Change in Mental Status Yes Sepsis Action Taken by Nursing Physician Notified 01/10/24 18:12 01/10/24 18:12 01/10/24 18:13 Temperature 39.4 C H 39.4 C H Temperature Source Rectal Rectal Pulse Rate Pulse Rate [Apical] 114 H Pulse Rhythm [Apical] Pulse Strength [Apical] Respiratory Rate 16 Respiratory Effort / Characteristics Respiratory Depth Respiratory Pattern Blood Pressure Blood Pressure [Left Arm] 124/77 Blood Pressure Mean Blood Pressure Mean [Left Arm] 92 Pulse Oximetry 94 94 Oxygen Delivery Method Room Air Room Air Sepsis Recent Fever Within 48 Hours Sepsis New/Unexplained Change in Mental Status Sepsis Action Taken by Nursing 01/10/24 18:27 01/10/24 18:33 01/10/24 18:57 Temperature 36.6 C Temperature Source Oral Pulse Rate 109 H 108 H Pulse Rate [Apical] 103 H Pulse Rhythm [Apical] Regular Pulse Strength [Apical] Normal Respiratory Rate 27 H 25 H 23 Respiratory Effort / Characteristics Non-Labored Spontaneous Respiratory Depth Shallow Respiratory Pattern Regular Blood Pressure Blood Pressure [Left Arm] 100/51 L Blood Pressure Mean Blood Pressure Mean [Left Arm] 67 Pulse Oximetry 95 Oxygen Delivery Method Room Air Sepsis Recent Fever Within 48 Hours Sepsis New/Unexplained Change in Mental Status Sepsis Action Taken by Nursing 01/10/24 19:30 01/10/24 20:00 01/10/24 20:09 Temperature Temperature Source Pulse Rate 101 H 94 H 94 H Pulse Rate [Apical] Pulse Rhythm [Apical] Pulse Strength [Apical] Respiratory Rate 20 20 21 Respiratory Effort / Characteristics Respiratory Depth Respiratory Pattern Blood Pressure 100/50 L 94/59 L 104/80 Blood Pressure [Left Arm] Blood Pressure Mean 66 70 88 Blood Pressure Mean [Left Arm] Pulse Oximetry 95 94 95 Oxygen Delivery Method Sepsis Recent Fever Within 48 Hours Sepsis New/Unexplained Change in Mental Status Sepsis Action Taken by Nursing Laboratory Data 01/10/24 18:35 01/10/24 18:35 Lab Results 01/10/24 01/10/24 01/10/24 Range/Units 18:06 18:35 19:00 WBC 15.99 H (4.8-10.8) K/ul RBC 3.12 L (4.20-5.40) M/uL Hgb 9.4 L (12.0-16.0) g/dl Hct 29.9 L (37.0-47.0) % MCV 95.8 (80.0-100.0) fL MCH 30.1 (25.0-34.0) pg MCHC 31.4 L (32.0-36.0) g/dL RDW Std Deviation 61.0 H (36.4-46.3) fL RDW Coeff of Mario 18.0 H (11.5-14.5) % Plt Count 126 L (130-400) K/uL MPV 10.9 (9.4-12.4) fL Immature Gran % (Auto) 2.2 % Neut % (Auto) 90.9 % Lymph % (Auto) 2.5 % Pierce % (Auto) 4.0 % Eos % (Auto) 0.2 % Baso % (Auto) 0.2 % Neut # (Auto) 14.54 H (1.40-6.50) K/uL Lymph # (Auto) 0.40 L (1.20-3.40) K/uL Pierce # (Auto) 0.64 H (0.11-0.59) K/uL Eos # (Auto) 0.03 (0.00-0.50) K/uL Baso # (Auto) 0.03 (0.00-0.20) K/uL Immature Gran # (Auto) 0.35 H (0.01-0.20) K/uL Absolute Nucleated RBC 0.13 H (0.00-0.12) K/uL Nucleated RBC % (auto) 0.8 % Dohle Bodies 2+ Polychromasia 1+ PT 11.4 (9.0-12.0) Seconds INR 1.1 (0.9-1.1) VBG pH 7.50 H (7.36-7.41) VBG pCO2 33 L (38-50) mmHg VBG pO2 64 mmHg VBG HCO3 26 mmol/L VBG O2 Saturation 94.1 % VBG Base Excess 2.9 mEq/L Sodium 139 (136-145) mmol/L Potassium 4.7 (3.5-5.1) mmol/L Chloride 105 (98-107) mmol/L Carbon Dioxide 24 (21-32) mmol/L Anion Gap 10 (3-11) BUN 58 H (6-23) mg/dl Creatinine 2.14 H (0.6-1.2) mg/dl Est Cr Clr Drug Dosing 19.7 ml/min eGFR 22.71 BUN/Creatinine Ratio 27.1 H (10-20) Glucose 120 H (70-99(Fasting)) mg/dl Lactate 2.3 H* (0.4-2.0) mmol/L Calcium 8.1 L (8.6-10.3) mg/dl Magnesium 2.3 (1.7-2.4) mg/dl Total Bilirubin 1.0 (0.2-1.0) mg/dl AST 34 (13-39) U/L ALT 60 H (7-52) U/L Alkaline Phosphatase 93 (34-104) U/L Troponin I High Sens 39.2 H (0-14) pg/ml Total Protein 5.9 L (6.0-8.3) gm/dl Albumin 3.2 L (3.4-5.0) gm/dl Globulin 2.7 (2.5-4.0) gm/dl Albumin/Globulin Ratio 1.2 (0.9-2) Procalcitonin 32.40 H (0-0.5) ng/ml TSH 0.506 (0.300-4.500) uIu/ml Urine Color Yellow Urine Appearance Clear (Clear) Urine pH 6.5 (4.5-7.5) Ur Specific [place] 1.009 (1.000-1.030) Urine Protein 2+ H (Negative) Urine Glucose (UA) Negative (Negative) Urine Ketones Negative (Negative) Urine Blood 2+ H (Negative) Urine Nitrite Negative (Negative) Urine Bilirubin Negative (Negative) Urine Urobilinogen Negative (Negative) Ur Leukocyte Esterase 1+ H (Negative) Urine WBC (Auto) 21-50 H (0-5) /hpf Urine RBC (Auto) >20 H (0-2) /hpf U Hyaline Cast (Auto) 0-2 (0-2) /lpf U Epithel Cells (Auto) 0-2 (0-2) /hpf Urine Bacteria (Auto) None Seen (None Seen) Adenovirus (PCR) Not Detected (NotDetected) B. pertussis DNA (PCR) Not Detected (NotDetected) B.parapertussis DNA PCR Not Detected (NotDetected) C. pneumoniae DNA (PCR) Not Detected (NotDetected) Coronavirus OC43 (PCR) Not Detected (NotDetected) Coronavirus HKU1 (PCR) Not Detected (NotDetected) Coronavirus 229E (PCR) Not Detected (NotDetected) SARS-CoV-2 (PCR) Not Detected (NotDetected) Coronavirus NL63 (PCR) Not Detected (NotDetected) Human Metapneumovir PCR Not Detected (NotDetected) Influenza Type A (PCR) Not Detected (NotDetected) Influenza Type B (PCR) Not Detected (NotDetected) M. pneumoniae (PCR) Not Detected (NotDetected) Parainfluenza 1 (PCR) Not Detected (NotDetected) Parainfluenza 2 (PCR) Not Detected (NotDetected) Parainfluenza 3 (PCR) Not Detected (NotDetected) Parainfluenza 4 (PCR) Not Detected (NotDetected) RSV (PCR) Not Detected (NotDetected) Entero/Rhino (PCR) DETECTED A (NotDetected) Administered Medications Brimonidine Tartrate (Brimonidine Tartrate 0.2% 5ml) 1 drops OPB BID [facility] Stop: 02/09/24 20:59 Last Admin: 01/10/24 22:34 Dose: Not Given Documented By: CR Diclofenac Sodium (Diclofenac Sod 1% Gel 100 Gm Tube) 2 gm EXT QID AMARI; Protocol Stop: 02/09/24 20:59 Last Admin: 01/10/24 21:03 Dose: 2 gm Documented By: DAV Famotidine (Famotidine 10 Mg Tablet) 10 mg PO HS AMARI Stop: 02/09/24 20:59 Last Admin: 01/10/24 22:33 Dose: Not Given Documented By: SADA Albumin Human (Albumin 25%) 25 gm in 100 mls @ 50 mls/hr IV Q2H AMARI Stop: 01/11/24 00:29 Last Admin: 01/10/24 22:38 Dose: 50 mls/hr Documented By: Infusion: 01/10/24 22:38 Dose: Infused Documented By: Admin: 01/10/24 20:40 Dose: 50 mls/hr Documented By: DAV Pregabalin (Pregabalin 75 Mg Cap) 75 mg PO BID AMARI Stop: 02/09/24 20:59 Last Admin: 01/10/24 22:34 Dose: Not Given Documented By: SADA Ropinirole HCl (Ropinirole Hcl 2 Mg Tablet) 2 mg PO HS AMARI Stop: 02/09/24 20:59 Last Admin: 01/10/24 22:34 Dose: Not Given Documented By: SADA Timolol Maleate (Timolol Maleate 0.5% Op Soln 5 Ml Btl) 1 drops OPB BID AMARI Stop: 02/09/24 20:59 Last Admin: 01/10/24 22:34 Dose: Not Given Documented By: SADA Travoprost (Travoprost Z 0.004% Oph Soln 2.5 Ml Btl) 1 drops OPB HS AMARI Stop: 02/09/24 20:59 Last Admin: 01/10/24 21:07 Dose: 1 drops Documented By: DAV Discontinued Medications Hydrocortisone Sodium Succinate (Hydrocortisone Sod Succinate 100 Mg/2 Ml Vial) 100 mg IV NOW STA Stop: 01/10/24 20:35 Last Admin: 01/10/24 20:45 Dose: 100 mg Documented By: DAV Meropenem 500 mg/ Syringe 10 mls @ 2 mls/min IV ONCE ONE; Protocol Stop: 01/10/24 18:05 Last Admin: 01/10/24 19:00 Dose: 2 mls/min Documented By: DAV Acetaminophen (Ofirmev) 1,000 mg in 100 mls @ 400 mls/hr IV NOW STA Stop: 01/10/24 18:28 Last Infusion: 01/10/24 18:39 Dose: Infused Documented By: Admin: 01/10/24 18:18 Dose: 400 mls/hr Documented By: BCN Sodium Chloride (Nss) 500 mls @ 999 mls/hr IV .Q31M ONE Stop: 01/10/24 19:51 Last Infusion: 01/10/24 20:17 Dose: Infused Documented By: Admin: 01/10/24 19:28 Dose: 999 mls/hr Documented By: DAV Sodium Chloride (Nss) 1,000 mls @ 999 mls/hr IV .Q1H1M ONE Stop: 01/10/24 21:14 Last Infusion: 01/10/24 22:42 Dose: Infused Documented By: Admin: 01/10/24 20:19 Dose: 999 mls/hr Documented By: CHERIW Imaging Data Radiologist's Impression: Abdomen/Pelvis CT 01/10/24 17:56 Exam(s): CT ABDOMEN + PELVIS Without Contrast EXAM: CT Abdomen and Pelvis Without Intravenous Contrast CLINICAL HISTORY: Reason for exam: weak, confused, urinary symptoms. TECHNIQUE: Axial computed tomography images of the abdomen and pelvis without intravenous contrast. CTDI is 28.58 mGy and DLP is 1351.46 mGy-cm. Automated exposure control was utilized for the study. A dose lowering technique was utilized adhering to the principles of ALARA. COMPARISON: December 06, 2023 FINDINGS: Lung bases: Linear atelectasis right lower lobe. Pleural space: Improvement in bilateral pleural effusions with near complete resolution of the right and trace left pleural effusion. Heart: Coronary artery calcifications. Mediastinum: Small hiatal hernia. ABDOMEN: Liver: Unremarkable. Gallbladder and bile ducts: Postoperative changes prior cholecystectomy. No ductal dilation. Pancreas: Unremarkable. No ductal dilation. Spleen: Unremarkable. No splenomegaly. Adrenals: Unremarkable. No mass. Kidneys and ureters: Unremarkable. No obstructing stones. No hydronephrosis. Stomach and bowel: Moderate to large amount of stool within the colon. Diverticulosis without evidence of diverticulitis. PELVIS: Appendix: No findings to suggest acute appendicitis. Bladder: Unremarkable. No stones. Reproductive: Unremarkable as visualized. ABDOMEN and PELVIS: Intraperitoneal space: Unremarkable. No free air. No significant fluid collection. Bones/joints: No acute fracture. No dislocation. Multilevel degenerative disease of the lower thoracic and lumbar spine. Remote healing right 12th rib fracture Soft tissues: Unremarkable. Vasculature: Aortic and mitral valvular calcifications. Lymph nodes: Unremarkable. No enlarged lymph nodes. IMPRESSION: Improvement in bilateral pleural effusions with near complete resolution of the right and trace left pleural effusion. CT abdomen and pelvis otherwise negative for acute intra-abdominal pathology Chronic changes as described above Electronically signed by: Austin Cordero MD 01/10/24 19:30 PM Chest X-Ray 01/10/24 17:56 SINGLE VIEW CHEST CLINICAL HISTORY: Generalized weakness. Tachycardia FINDINGS: An AP, portable, upright chest radiograph is compared to study dated 12/04/2023. Correlation is made with chest CT dated 10/23/2023. The examination is degraded by portable technique and patient rotation. The heart is enlarged. The pulmonary vasculature is noncongested. Chronic interstitial thickening is similar to previous. There is bibasilar scarring/atelectasis. No airspace consolidation or large pleural effusion is identified. No pneumothorax is seen. The skeletal structures are osteopenic. There are chronic/healed right-sided rib fractures. Enteric contrast is noted in the colon. IMPRESSION: Cardiomegaly with no active disease in the chest. ACT 112: Negative or not required by law. Electronically signed by: Ulises Yoo M.D. 01/10/2024 7:[address] 01/10/24 17:57 CT head/brain wo con CLINICAL HISTORY: weak, confusion Technique: Contiguous axial CT images of the head were acquired from the base of the skull to the vertex without intravenous contrast administration. Images were viewed in brain, subdural and bone windows. Automated dose lowering techniques and/or adjustment according to patient size were utilized for this exam. Comparison: None available at the time of this dictation. Findings: Areas of decreased attenuation are present in the periventricular and subcortical white matter bilaterally consistent with small vessel ischemic disease. Generalized cerebral atrophy with commensurate enlargement of the ventricles, sulci, and cisterns is also present. There is no acute intracranial hemorrhage or evidence of acute territorial infarction. No shift of the midline structures, mass effect, or extra-axial abnormalities are shown. Atherosclerotic calcifications are present in the intracranial segments of the internal carotid arteries. Imaged portions of the paranasal sinuses and mastoid air cells are clear. The orbits appear normal. There are no acute fractures of the calvaria or scalp swelling. Impression: No acute intracranial hemorrhage, no evidence of acute territorial infarction or other acute intracranial disease process. ACT 112: Negative or not required by law. Electronically signed by: Gui Coy M.D. 01/10/2024 6:56 PM Discharge Plan Visit Data Chief Complaint: Lethargic Stated Complaint: LETHARGIC, UTI ED Provider: Steven Lai Discharge Problem: Weakness, Acute UTI, Sepsis Patient Disposition: Admitted As Inpatient Discharge Instructions Interventions: ED Discharge Assessment Last Done: 01/10/24 21:46
[2024-01-10] MEDS: ACETAMINOPHEN 1,000 MG/100 ML VIAL IV STA (18:18)
[2024-01-10 18:29] LABS: Appearance Urine Clear (Clear); Bacteria Urine Automated None Seen (None Seen); Bilirubin Urine Negative (Negative); Blood Urine 2+ (Negative); Cast Urine Automated 0-2 /lpf (0-2); Color Urine Yellow; Epithelial Cell Urine Auto 0-2 /hpf (0-2); Glucose Urine UA Negative (Negative); Ketones Urine Negative (Negative); Leukocyte Esterase Urine 1+ (Negative); Nitrite Urine Negative (Negative); Protein Urine 2+ (Negative); RBC Urine Automated >20 /hpf (0-2); Specific Gravity Urine 1.009 (1.000-1.030); Urobilinogen Urine Negative (Negative); WBC Urine Automated 21-50 /hpf (0-5); pH Urine 6.5 (4.5-7.5)
--- NOTE | 2024-01-10 18:58 | CT Scan Report ---
CT head/brain wo con CLINICAL HISTORY: weak, confusion Technique: Contiguous axial CT images of the head were acquired from the base of the skull to the klaudia nae without intravenous contrast administration. Images were viewed in brain, subdural and [facility]. Automated dose lowering techniques and/or adjustment according to patient size were utilized for this exam. Comparison: None available at the time of this dictation. Findings: Areas of decreased attenuation are present in the periventricular and subcortical white matter bilate rally consistent with small vessel ischemic disease. Generalized cerebral atrophy with commensurate e nlargement of the ventricles, sulci, and cisterns is also present. There is no acute intracranial hem orrhage or evidence of acute territorial infarction. No shift of the midline structures, mass effect, or extra-axial abnormalities are shown. Atherosclerotic calcifications are present in the intracran ial segments of the internal carotid arteries. Imaged portions of the paranasal sinuses and mastoid air cells are clear. The orbits appear normal. There are no acute fractures of the calvaria or scalp swelling. Impression: No acute intracranial hemorrhage, no evidence of acute territorial infarction or other acute intracra nial disease process. ACT 112: Negative or not required by law. Electronically signed by: Gui Coy M.D. 01/10/2024 6:56 PM
[2024-01-10] MEDS: MEROPENEM 500 MG in SYRINGE 0 ML IV ONE (19:00)
[2024-01-10 19:01] LABS: Hematocrit (blood only) 29.9 % (37.0-47.0); Hemoglobin 9.4 g/dl (12.0-16.0); Mean Corpuscular Hemoglobin 30.1 pg (25.0-34.0); Mean Corpuscular Hgb Conc 31.4 g/dL (32.0-36.0); Mean Corpuscular Volume 95.8 fL (80.0-100.0); Mean Platelet Volume 10.9 fL (9.4-12.4); Nucleated RBC # (auto) 0.13 K/uL (0.00-0.12); Nucleated RBC % (auto) 0.8 %; Platelet Count 126 K/uL (130-400); Red Blood Count 3.12 M/uL (4.20-5.40); White Blood Count 15.99 K/ul (4.8-10.8)
[2024-01-10 19:12] LABS: Adenovirus PCR Not Detected (NotDetected); Bordetella parapertussis PCR Not Detected (NotDetected); Bordetella pertussis PCR Not Detected (NotDetected); Chlamydia pneumoniae PCR Not Detected (NotDetected); Coronavirus 229E PCR Not Detected (NotDetected); Coronavirus CoV-2 (COVID19)PCR Not Detected (NotDetected); Coronavirus HKU1 PCR Not Detected (NotDetected); Coronavirus NL63 PCR Not Detected (NotDetected); Coronavirus OC43PCR Not Detected (NotDetected); Human Metapneumovirus PCR Not Detected (NotDetected); Influenza A PCR Not Detected (NotDetected); Influenza B PCR Not Detected (NotDetected); Mycoplasma pneumoniae PCR Not Detected (NotDetected); Parainfluenza Virus 1 PCR Not Detected (NotDetected); Parainfluenza Virus 2 PCR Not Detected (NotDetected); Parainfluenza Virus 3 PCR Not Detected (NotDetected); Parainfluenza Virus 4 PCR Not Detected (NotDetected); Respiratory Syncytial VirusPCR Not Detected (NotDetected); Rhinovirus/Enterovirus PCR DETECTED (NotDetected)
[2024-01-10 19:14] LABS: Base Excess VBG 2.9 mEq/L; HCO3 VBG 26 mmol/L; Oxygen Saturation VBG 94.1 %; PCO2 VBG 33 mmHg (38-50); PO2 VBG 64 mmHg
[2024-01-10 19:15] LABS: Albumin Globulin Ratio 1.2 (0.9-2); Albumin Level 3.2 gm/dl (3.4-5.0); BUN Creatinine Ratio 27.1 (10-20); Calcium 8.1 mg/dl (8.6-10.3); Creatinine Clr Calc Pharmacy 19.7 ml/min; Globulin 2.7 gm/dl (2.5-4.0); Magnesium 2.3 mg/dl (1.7-2.4); Potassium 4.7 mmol/L (3.5-5.1); Total Protein 5.9 gm/dl (6.0-8.3)
[2024-01-10 19:18] LABS: Troponin I High Sensitivity 39.2 pg/ml (0-14)
[2024-01-10 19:20] LABS: Basophils # (auto) 0.03 K/uL (0.00-0.20); Basophils % (auto) 0.2 %; Dohle Bodies 2+; Eosinophils # (auto) 0.03 K/uL (0.00-0.50); Eosinophils % (auto) 0.2 %; Immature Granulocytes # (auto) 0.35 K/uL (0.01-0.20); Immature Granulocytes % (auto) 2.2 %; Lymphocytes % (auto) 2.5 %; Monocytes # (auto) 0.64 K/uL (0.11-0.59); Neutrophils # (auto) 14.54 K/uL (1.40-6.50); Neutrophils % (auto) 90.9 %; Polychromasia 1+
--- NOTE | 2024-01-10 19:21 | XRay Report ---
SINGLE VIEW CHEST CLINICAL HISTORY: Generalized weakness. Tachycardia FINDINGS: An AP, portable, upright chest radiograph is compared to study dated 12/04/2023. Correlation is made with chest CT dated 10/23/2023. The examination is degraded by portable technique and patient rotation. The heart is enlarged. The pulmonary vasculature is noncongested. Chronic interstitial th ickening is similar to previous. There is bibasilar scarring/atelectasis. No airspace consolidation o r large pleural effusion is identified. No pneumothorax is seen. The skeletal structures are osteopen ic. There are chronic/healed right-sided rib fractures. Enteric contrast is noted in the colon. IMPRESSION: Cardiomegaly with no active disease in the chest. ACT 112: Negative or not required by law. Electronically signed by: Ulises Yoo M.D. 01/10/2024 7:20 PM
[2024-01-10 19:22] LABS: INR 1.1 (0.9-1.1); Prothrombin Time 11.4 Seconds (9.0-12.0)
[2024-01-10] MEDS: SODIUM CHLORIDE 0.9% 500 ML IV ONE (19:28)
[2024-01-10 19:30] LABS: Thyroid Stimulating Hormone 0.506 uIu/ml (0.300-4.500)
--- NOTE | 2024-01-10 19:32 | CT Scan Report ---
Exam(s): CT ABDOMEN + PELVIS Without Contrast EXAM: CT Abdomen and Pelvis Without Intravenous Contrast CLINICAL HISTORY: Reason for exam: weak, confused, urinary symptoms. TECHNIQUE: Axial computed tomography images of the abdomen and pelvis without intravenous contrast. CTDI is 28.58 mGy and DLP is 1351.46 mGy-cm. Automated exposure control was utilized for the study. A dose lowering technique was utilized adhering to the principles of ALARA. COMPARISON: December 06, 2023 FINDINGS: Lung bases: Linear atelectasis right lower lobe. Pleural space: Improvement in bilateral pleural effusions with near complete resolution of the right and trace left pleural effusion. Heart: Coronary artery calcifications. Mediastinum: Small hiatal hernia. ABDOMEN: Liver: Unremarkable. Gallbladder and bile ducts: Postoperative changes prior cholecystectomy. No ductal dilation. Pancreas: Unremarkable. No ductal dilation. Spleen: Unremarkable. No splenomegaly. Adrenals: Unremarkable. No mass. Kidneys and ureters: Unremarkable. No obstructing stones. No hydronephrosis. Stomach and bowel: Moderate to large amount of stool within the colon. Diverticulosis without evidence of diverticulitis. PELVIS: Appendix: No findings to suggest acute appendicitis. Bladder: Unremarkable. No stones. Reproductive: Unremarkable as visualized. ABDOMEN and PELVIS: Intraperitoneal space: Unremarkable. No free air. No significant fluid collection. Bones/joints: No acute fracture. No dislocation. Multilevel degenerative disease of the lower thoracic and lumbar spine. Remote healing right 12th rib fracture Soft tissues: Unremarkable. Vasculature: Aortic and mitral valvular calcifications. Lymph nodes: Unremarkable. No enlarged lymph nodes. IMPRESSION: Improvement in bilateral pleural effusions with near complete resolution of the right and trace left pleural effusion. CT abdomen and pelvis otherwise negative for acute intra-abdominal pathology Chronic changes as described above Electronically signed by: Austin Cordero MD 01/10/24 19:30 PM
[2024-01-10] MEDS: SODIUM CHLORIDE 0.9% 1,000 ML IV ONE (20:19)
[2024-01-10] MEDS ORDERED: ARTIFICIAL TEARS OP PRN (20:38)
[2024-01-10] MEDS: ALBUMIN 25% 25 GM/100 ML VIAL IV SCH (20:40)
[2024-01-10] MEDS: HYDROCORTISONE SOD SUCCINATE 100 MG/2 ML VIAL IV STA (20:45)
[2024-01-10] MEDS ORDERED: HYDROCORTISONE SOD SUCCINATE 100 MG/2 ML VIAL IM SCH (20:45)
--- NOTE | 2024-01-10 20:46 | History & Physical Report ---
Date of Service January 10, 2024 Assessment & Plan (1) Sepsis: (2) Acute UTI: (3) DENNIS (acute kidney injury): (4) Chronic kidney disease, stage IV (severe): (5) Thrombocytopenia: (6) Pulmonary hypertension: (7) Rheumatoid arthritis: (8) Essential hypertension: Plan Sepsis Pt presented to ED with tachycardia, hypotension, fever, leukocytosis, and acutely elevated creatinine. Lactate was 2.3 and procal was 32.4. Troponin was 39.2 with repeat at 28.9. She was given 500ml NS bolus and IV meropenem 500mg. Pt's BP and tachycardia did not improve. Upon admission, she was given 1000mL NS bolus, 50mg 25% albumin IV, and 100mg hydrocortisone IV. - Admitted to PCU - Reassess vitals follow HS bolus, if BPs remain low- will transfer to ICU for pressors - Continue hydrocortisone 100mg IV q8h - Continue Meropenem 500mg IV UTI Pt has positive UA and was reporting urinary symptoms at the SNF. Recent hx of ESBL E. coli UTI-Pt currently finishing course of Cipro. - Await Urine cx DENNIS Pts creatinine was 2.14. Baseline is 1.2. - Continue IVF - Monitor creatinine CKD Baseline Cr is 1.2. -Renal dose of lyrica Thrombocytopenia Platelets found to be 126, down from 236 on 12/31. -Holding Eliquis, will consider resuming after CBC in AM Pulmonary hypertension Last echo was in 10/02 which showed EF of 55-60% and severe pulmonary hypertension - Hold carvedilol 6.25 mg BID, if BP's improve will consider resuming in the AM RA Pt was taking daily prednisone 20mg PO for RA symptoms. Likely adrenal suppression. -Holding home med of prednisone -Started Hydrocortisone 100mg IV q8h HTN Patient has history of essential HTN. BP's currently 105/46 -Hold home meds of amlodipine, losartan, bumetanide, and hydralazine Other chronic conditions: GERD- Continue home meds of famotidine 10 mg and pantoprazole 40mg Arthritic pain- Hold oxycodone, continue diclofenac gel Depression/anxiety- hold venlafaxine Glaucoma-continue travoprost 0.004% drop, artificial tears Hypothyroidism- Continue levothyroxine 75mcg Dispo: PCU Diet: NPO DVT prohyylaxis: SCD Code: DNR History of Present Illness Chief Complaint: Lethargy Primary Care Provider: [facility] Pt is an 83 yo female with PMH of RA, CKD, DVT, NSTEMI, DVT, recent hx of strep G soft tissue infection and ESBL e.coli UTI. She presented today to ED from her SNF with increased lethargy and return of urinary symptoms. Pt had recently completed course of Doxycycline and was finishing a course of ciprofloxacin. Currently, pt is lethargic, but arousable and will answer questions with verbal stimuli. She is denying dysuria, increased urinary frequency or pelvic pain. She endorses posterior thigh and bilateral foot pain. Pt denies chest pain, SOB, c ough, congestion, fever, chills, abdominal pain, nausea, vomiting or diarrhea. She endorses bilateral foot numbness and burning due to long standing neuropathy. Pt was found to be septic with fever, hypotension, tachycardia and CR of 2.14 in ED, she was given 500mL NS bolus, meropenem 500mg IV and Acetaminophen 1g IV. Pt's BP continued to decrease. Allergies Allergy/AdvReac Type Severity Reaction Status Date / Time aspirin Allergy Severe ANAPHYLAXIS Verified 01/10/24 18:45 duloxetine [From Cymbalta] Allergy Intermediate Rash Verified 01/10/24 18:45 NSAIDS (Non-Steroidal Allergy Unknown Verified 01/10/24 18:45 Anti-Inflamma lisinopril AdvReac Intermediate Cough Verified 01/10/24 18:45 Home Medications Medication Instructions Recorded Confirmed Type acetaminophen 325 mg tablet 650 mg PO Q6 PRN Fever Or Pain 09/28/23 01/10/24 History (Tylenol) brimonidine 0.2 %-timolol 0.5 % 1 drp OPB BID 09/28/23 01/10/24 History eye drops bumetanide 2 mg tablet 2 mg PO QAM 09/28/23 01/10/24 History calcium carbonate 1,000 mg PO Q2H PRN Heartburn 09/28/23 01/10/24 History carboxymethylcellulose sodium 1 % 1 drp OPL Q6H PRN DRYNESS/WATERING 09/28/23 01/10/24 History eye drops (Artificial Tears (carboxymethylcellulose)) famotidine 10 mg tablet 10 mg PO HS 09/28/23 01/10/24 History hydralazine 50 mg tablet 75 mg PO TID 09/28/23 01/10/24 History levothyroxine 75 mcg tablet 75 mcg PO QAM 09/28/23 01/10/24 History losartan 100 mg tablet 100 mg PO QAM 09/28/23 01/10/24 History magnesium oxide 500 mg PO HS 09/28/23 01/10/24 History ondansetron HCl 4 mg tablet 4 mg PO Q6H PRN Nausea 09/28/23 01/10/24 History oxycodone 5 mg tablet 5 mg PO Q6H PRN Pain 5-8 09/28/23 01/10/24 History oxycodone 5 mg tablet 10 mg PO Q6H PRN Pain 9-10 09/28/23 01/10/24 History pantoprazole 40 mg tablet,delayed 40 mg PO DAILY 09/28/23 01/10/24 History release ropinirole 2 mg tablet 2 mg PO HS 09/28/23 01/10/24 History travoprost 0.004 % eye drops 1 drp OPB HS 09/28/23 01/10/24 History amlodipine 10 mg tablet 10 mg PO DAILY #10 tabs 10/03/23 01/10/24 Rx carvedilol 6.25 mg tablet 6.25 mg PO BID 10/23/23 01/10/24 History venlafaxine 150 mg 150 mg PO QAM 10/23/23 01/10/24 History capsule,extended release 24 hr apixaban 2.5 mg tablet (Eliquis) 2.5 mg PO BID #0 tabs 10/30/23 01/10/24 Rx cyanocobalamin (vitamin B-12) 500 1,000 mcg (2 x 500 mcg) PO QAM #0 10/30/23 01/10/24 Rx mcg tablet tabs folic acid 1 mg tablet 1 mg PO QAM #0 tabs 10/30/23 01/10/24 Rx loratadine 5 mg-pseudoephedrine ER 1 tab PO Q12H PRN allergy symptoms 10/30/23 01/10/24 Rx 120 mg tablet,extended #0 tabs release,12hr (Claritin-D 12 Hour) sennosides 8.6 mg tablet (Senokot) 8.6 mg PO QAM #0 tabs 10/30/23 01/10/24 Rx diclofenac sodium 1 % topical gel 2 g topical QID 12/04/23 01/10/24 History prednisone 20 mg tablet 20 mg PO QAM 12/04/23 01/10/24 History pregabalin 75 mg capsule 75 mg PO TID 12/04/23 01/10/24 History venlafaxine 37.5 mg 37.5 mg PO QAM depression 12/04/23 01/10/24 History capsule,extended release 24 hr polyethylene glycol 3350 17 gram 17 g PO QAM 01/10/24 01/10/24 History oral powder packet (Miralax) polysaccharide iron complex 150 mg 150 mg PO DAILY 01/10/24 01/10/24 History iron capsule (Ferrex) potassium chloride 20 mEq 20 meq PO TID 01/10/24 01/10/24 History tablet,extended release(part/cryst) protein supplement 1 ea PO BID 01/10/24 01/10/24 History Past Med/Surg History Problem List (Updated 01/10/24 @ 22:02 by Background Daemon) Pulmonary hypertension Thrombocytopenia DENNIS (acute kidney injury) Acute UTI (Acute) Bacteremia ESBL (extended spectrum beta-lactamase) producing bacteria infection Acute pyelonephritis High serum lactate (Acute) Leukocytosis (Acute) Sepsis (Acute) Pulmonary HTN Acute heart failure with preserved ejection fraction (HFpEF) Chronic kidney disease, stage IV (severe) Steroid dependence UTI (urinary tract infection) Rheumatoid arthritis FOLLOWS DR. TREVINO Essential hypertension Insomnia Lower extremity ulceration Sepsis (Acute) Hypoxia (Acute) Degenerative spondylolisthesis Scoliosis of lumbar region due to degenerative disease of spine in adult Painful orthopaedic hardware Occult blood positive stool Anemia Generalized weakness (Acute) Bilateral edema of lower extremity (Acute) Acute kidney injury superimposed on chronic kidney disease (Acute) Acute UTI (urinary tract infection) (Acute) Greater trochanteric bursitis of left hip Bilateral leg edema Hypoxia (Acute) Weakness (Acute) Gastroenteritis (Acute) Hypertensive urgency Elevated troponin (Acute) Lumbar spinal stenosis Severe at L2-S1 Acute kidney injury superimposed on CKD Weakness (Acute) Fatigue (Acute) HTN (hypertension) (Chronic) Spinal stenosis, lumbar region with neurogenic claudication Hypothyroidism Depression Neuropathy (Chronic) FEET Osteoarthritis (Chronic) Restless leg syndrome (Chronic) Glaucoma (Chronic) Medical History (Updated 01/10/24 @ 22:02 by Background Daemon) Gram-negative bacteremia Streptococcal bacteremia Community acquired pneumonia Septic shock Pneumonia Metabolic encephalopathy DVT (deep venous thrombosis) Non-ST elevation MS (NSTEMI) CKD (chronic kidney disease), stage III skilled nursing resident resident of [facility] Low hemoglobin and low hematocrit Dysphagia Gait abnormality Weakness Low back pain Personal history of venous thrombosis and embolism Other intestinal Escherichia coli infections Cognitive communication deficit Adult failure to thrive Herniated lumbar disc without myelopathy Left central disc herniation at L5-S1 Lumbar radiculopathy High cholesterol Anxiety Hypertension Surgical History History of total bilateral knee replacement (TKR) History of carpal tunnel release RIGHT HAND Hx of arthroscopy RIGHT KNEE (MENISCUS) Hx of tonsillectomy Hx of hysterectomy Hx laparoscopic cholecystectomy Family History Mother Family history of reaction to anesthesia SLOW TO AWAKEN Social History Smoking Status: Never smoker Second Hand Exposure: No; Do You Dip or Chew Tobacco: No; Hx Alcohol Use: No Hx Substance Use: No Preferred Language: Mohawk Communication Ability: Effective Communication Ability Comment: Pt disoriented, but able to communicate needs Visual Impairment: No Limitations Keller Machine Operator Required: No Beliefs That Will Affect Care: None marital status: Single Current Living Situation: Personal Care Facility Current Living Situation Comment: [facility] How many Children do You have: 0 Other Information That Helps Us Care for You: No Feels Safe at Home: Yes Safety Concerns: Feels Safe At This Time Assistive Devices: Lift Chair and Wheelchair Review of Systems Review of Systems: As per HPI Physical Exam Constitutional: + obese, cooperative and + lethargic ENMT: external ear and nose normal, oropharynx normal Neck: normal visual inspection Respiratory: normal respiratory effort; no respiratory distress Cardiovascular: Rate/Rhythm: regular rate, regular rhythm and + tachycardic Heart Sounds: no gallop and no murmur Extremities: + edema (Bilateral ankle and feet is 2+) Gastrointestinal (Abdomen): Inspection/Auscultation: abdomen normal to inspection and normal bowel sounds Percussion/Palpation: abdomen soft; abdomen nontender Musculoskeletal: Extremities: + abnormal strength Skin: no rashes, warm and dry Psychiatric: Orientation: alert, oriented to person and oriented to time Results & Data Results & Data Vital Signs (Past 12 Hours) Vital Signs Temp Pulse Pulse Resp BP BP Pulse Ox 01/10/24 20:09 94 H 21 104/80 95 01/10/24 20:00 94 H 20 94/59 L 94 01/10/24 19:30 101 H 20 100/50 L 95 01/10/24 18:57 36.6 C 103 H 23 100/51 L 95 01/10/24 18:33 108 H 25 H 01/10/24 18:27 109 H 27 H 01/10/24 18:13 39.4 C H 01/10/24 18:12 94 01/10/24 18:12 39.4 C H 114 H 16 124/77 94 01/10/24 18:00 115 H 01/10/24 17:56 01/10/24 17:56 37 C 115 H 14 94 O2 Del Method 01/10/24 20:09 01/10/24 20:00 01/10/24 19:30 01/10/24 18:57 Room Air 01/10/24 18:33 01/10/24 18:27 01/10/24 18:13 01/10/24 18:12 Room Air 01/10/24 18:12 Room Air 01/10/24 18:00 01/10/24 17:56 Room Air 01/10/24 17:56 Room Air Code Status & VTE Plan Code Status DNR VTE Prophylaxis Plan VTE Prophylaxis will be ordered: Yes Supervising Physician Co-Signing Physician Notes Attending addendum: I have physically seen this patient, have supervised the medical residents activities, and agree with the H&P unless as otherwise noted. Assessment and Plan: Sepsis due to urinary tract infection- Patient is tachycardic, hypotensive, dehydrated, with neutrophilic leukocytosis, elevated lactate, and acute kidney injury superimposed on CKD Follow urine culture sensitivity N.p.o. overnight Patient had received normal saline 500 mL bolus from the ED, meropenem 500 mg IV, and Tylenol 1 g IV, but blood pressure continued to be in 94/50 range and heart rate 101-115 range She was then given an additional 1 L bolus, albumin 50 g IV, hydrocortisone 100 mg IV, and blood pressure has improved to 129/69, and heart rate decreased to the low 90s. Will continue meropenem 500 mg IV every 12 hours Previous urinary tract infections: 12/24/2023 with Pseudomonas aeruginosa and coag negative staph. On 11/30/2023: Proteus mirabilis and ESBL E. coli Patient had finished 2 weeks of ertapenem IV on 12/19/2023, and since that time had reportedly been on doxycycline and then Cipro All are sensitive to meropenem Initial lactate 2.3 with follow-up 1.2 Patient will be placed on her usual oral medications starting in the a.m., but if she is still not alert, they will need to be discontinued Acute adrenal insufficiency- Patient is on chronic prednisone use for rheumatoid arthritis Place on hydrocortisone 100 mg IV every 8 hours, which will likely be able to be stopped after 2 days of treatment and converted back to standard prednisone dose Acute kidney injury superimposed on CKD- Creatinine 2.14, with base 1.17 Repeat BMP in a.m. Elevated troponin/history of hypertension- Patient is hypotensive due to sepsis as noted above Will hold amlodipine, bumetanide, carvedilol, hydralazine and losartan and reassess in the a.m. Most recent echo on 09/30/2023 with EF 55-60% Initial troponin 39.2, with follow-up 28.9, likely supply/demand mismatch Enterovirus/rhinovirus- [employer] came back late as positive Pulse ox 95% RA Will be on hydrocortisone IV Droplet precautions Thrombocytopenia- Platelets 126 on admission, with base 236 Hold Eliquis overnight Repeat laboratories in a.m. Resident Activity Tracking Resident Involvement: Resident Care Provided Care Provided: Adult Hospital Medicine (7) Rheumatoid arthritis Rheumatoid arthritis location: unspecified site Rheumatoid factor presence: unspecified presence Qualified Code(s): M06.9 - Rheumatoid arthritis, unspecified
[2024-01-10] MEDS: DICLOFENAC SOD 1% GEL 100 GM TUBE EXT SCH (21:03)
[2024-01-10] MEDS: TRAVOPROST Z 0.004% OPH SOLN 2.5 ML BTL OPB SCH (21:07)
[2024-01-10] MEDS: FAMOTIDINE 10 MG TABLET PO SCH (22:33)
[2024-01-10] MEDS: rOPINIRole HCL 2 MG TABLET PO SCH (22:34)
[2024-01-10] MEDS: TIMOLOL MALEATE 0.5% OP SOLN 5 ML BTL OPB SCH (22:34)
[2024-01-10] MEDS: BRIMONIDINE TARTRATE 0.2% 5ML OPB SCH (22:34)
[2024-01-10] MEDS: PREGABALIN 75 MG CAP PO SCH (22:34)
[2024-01-11] MEDS: HYDROCORTISONE SOD SUCCINATE 100 MG/2 ML VIAL IV SCH (04:54)
[2024-01-11] MEDS: HYDROCORTISONE SOD 100 MG in SYRINGE 0 ML IV SCH (05:14)
--- NOTE | 2024-01-11 05:43 | Billing Data ---
Date of Service January 11, 2024 Coding Level of Care Code 29116 INT INP/OBS CARE
[2024-01-11] MEDS: MEROPENEM 500 MG in SYRINGE 0 ML IV SCH (06:06)
[2024-01-11 06:58] LABS: A calco-baum cmplx NotReported Not Detected (NotDetected); Bact fragilis Not Reported Not Detected (NotDetected); Blood Culture Id Panel See PCR Comment (NotDetected); C auris Not Reported Not Detected (NotDetected); Calbicans Not Reported Not Detected (NotDetected); Candida glabrata Not Reported Not Detected (NotDetected); Candida krusei Not Reported Not Detected (NotDetected); Cneoformans/gatti Not Reported Not Detected (NotDetected); Cparapsilosis Not Reported Not Detected (NotDetected); E cloacae compx Not Reported Not Detected (NotDetected); Efaecalis Not Reported Not Detected (NotDetected); Efaecium Not Reported Not Detected (NotDetected); Enterobacterales DETECTED (NotDetected); Enterobacterales Not Reported DETECTED (NotDetected); Escherichia coli Not Reported DETECTED (NotDetected); H influenzae Not Reported Not Detected (NotDetected); IMP Resistant Gene Not Detected (NotDetected); K aerogenes Not Reported Not Detected (NotDetected); KPC Resistant Gene Not Detected (NotDetected); Koxytoca Not Reported Not Detected (NotDetected); Kpneumoniae grp Not Reported Not Detected (NotDetected); Lmonocyt Not Reported Not Detected (NotDetected); N meningitidis Not Reported Not Detected (NotDetected); NDM Resistant Gene Not Detected (NotDetected); OXA 48 Like Resistant Gene Not Detected (NotDetected); P aeruginosa Not Reported Not Detected (NotDetected); Proteus spp Not Reported Not Detected (NotDetected); Salmonella spp Not Reported Not Detected (NotDetected); Staph lugdunensis Not Reported Not Detected (NotDetected); Staph spp. Not Reported Not Detected (NotDetected); Staphaureus Not Reported Not Detected (NotDetected); Staphepi Not Reported Not Detected (NotDetected); Stenmaltophilia Not Reported Not Detected (NotDetected); Strep agal(GrpB) Not Reported Not Detected (NotDetected); Strep pneum Not Reported Not Detected (NotDetected); Strep pyog (GrpA) Not Reported Not Detected (NotDetected); Strep spp Not Reported Not Detected (NotDetected); VIM Resistant Gene Not Detected (NotDetected); mcr-1 Colistin Resistant Gene Not Detected (NotDetected)
[2024-01-11 08:15] LABS: CTX-M Resistant Gene DETECTED (NotDetected)
[2024-01-11] MEDS: PANTOprazole 40 MG TAB PO SCH (08:25)
[2024-01-11] MEDS: CYANOCOBALAMIN (B-12) 500 MCG TABLET PO SCH (08:26)
[2024-01-11] MEDS: FOLIC ACID 1 MG TAB PO SCH (08:26)
[2024-01-11] MEDS: LEVOTHYROXINE SODIUM 75 MCG TABLET PO SCH (08:28)
--- NOTE | 2024-01-11 09:16 | Electrocardiogram Report ---
Test Reason : Blood Pressure : */* mmHG Vent. Rate : 113 BPM Atrial Rate : 113 BPM P-R Int : 130 ms QRS Dur : 84 ms QT Int : 298 ms P-R-T Axes : 44 12 59 degrees QTcB Int : 408 ms Sinus tachycardia Otherwise normal ECG When compared with ECG of 04-Dec-2023 10:31, No significant change was found Confirmed by Alexis Hernandez ([id number]) on 01/11/2024 8:26:41 AM Referred By: REFERRED SELF Confirmed By: Alexis Hernandez
--- NOTE | 2024-01-11 12:26 | Infectious Disease Consult ---
Date of Consultation January 11, 2024 Assessment & Plan (1) Acute UTI: (2) Bacteremia: (3) ESBL (extended spectrum beta-lactamase) producing bacteria infection: (4) Leukocytosis: Plan This is an 83-year-old female with a past medical history of rheumatoid arthritis on chronic prednisone, pulmonary hypertension, right lower extremity DVT, NSTEMI,CHF, CKD 1V, bilateral total knee replacement, lumbar stenosis, admitted with group B strep bacteremia likely 2/2 left heel ulcer/cellulitis status post 14 days of antibiotics with ceftriaxone -->cefpodoxime, admitted 10/22-10/29 with septic shock 2/2 to ESBL E. coli bacteremia/UTI/- pneumonia s/p 14 d ertapenem and 7 d linezolid , admitted 12/03 - 12/06 with ESBL E. coli bacteremia, Proteus mirabilis and ESBL E. coli/?UTI, it was thought that the bacteremia She did have CVA tenderness on exam.Source was either urinary vs gut translocation. She completed 14 days of ertapenem that ended 12/19/2023.. She returns to the ED on 01/09 with increased lethargy and urinary symptoms over the past week. She was found to be fatigued, weak, lethargic and tachycardic at her facility. In the ED,temperature 39.4, pulse 114, RR 16, BP 124/77, O2 sats 94% on room air. Labs: WBC 15.99, platelets 126, BUN 58, creatinine 2.14. Urinalysis 2150 WBC, 50 RBC, 1+ leukocyte esterase, negative nitrites. Procalcitonin 32.40.Respiratory viral panel positive for entero/rhinovirus. Blood cultures with ESBL E. coli on ID : bottles + GNR. Urine culture 40K CFU E. coli pending sensitivity . AT her facility UC obtained, 01/07 grew > 100 K E. colii (sensitivities to follow). CTAP demonstrated improvement in bilateral pleural effusions with near complete resolution of right and trace left pleural effusion. No obstructing stones. No hydronephrosis. No acute abdominal pathology.. Chest x-ray with cardiomegaly without active disease. CT head with no acute process.. She was started on meropenem. ID consulted for multiple resistant UTIs, new gram-negative bacteremia. Econsult performed as no Telepresenter available at time of consults Microbiology: Urine culture 01/08/2024 (outpatient)> 100 K E. coli (sensitivity pending) RVP + entero/rhinovirus detected Urine culture 01/10/2024 40K E. coli pending sensitivities) Blood culture 01/09 4/4 gram-negative rods open (ESBL E. coli on BC ID) MRSA screen + 01/10 Antibiotics: Meropenem 01/09ongoing # ESBL E. coli bacteremia # E. coli bacteriuria # Entero virus/rhinovirus detected on respiratory panel # History of recurrent ESBL E. coli bacteremia/UTI # Elevated procalcitonin (renal dysfunction) Recommendations: Continue meropenem, switched to extended dosing at 1 g IV every 12 hours ( cr cl 19,discussed with ID pharmacy) Follow-up susceptibility of E. coli. If sensitive to ertapenem, will de- escalate. Follow-up urine culture Follow-up blood culture Monitor WBc Thank you for this consult. ID will continue to follow. ID connect will not round over weekend. Call [phone] with questions Mariely Moscoso MD, MPH Infectious Disease [facility], [facility] Consultation Information This patient recommendation is based on a telemedicine consult request which was completed asynchronously through chart review and information provided by the primary physician. The patient was not seen or examined today. The evaluation is consultative in nature and all patient care and treatment decisions can either be accepted or rejected by the patient's primary hospital-based treating physician using their own independent medical judgment for their patient. Unemployment Benefits Claims Taker contact information: Please call [facility] Call Center . (Phone Number For Physician Use Only) Time Spent Reviewing Chart: 31+ minutes History of Present Illness Reason for Consultation: multiple resistant UTIs, new gram-negative bacteremia. Requesting Physician: Alexis Mayfield MD Attending Physician: Alexis Mayfield MD Allergies Allergy/AdvReac Type Severity Reaction Status Date / Time aspirin Allergy Severe ANAPHYLAXIS Verified 01/10/24 18:45 duloxetine [From Cymbalta] Allergy Intermediate Rash Verified 01/10/24 18:45 NSAIDS (Non-Steroidal Allergy Unknown Verified 01/10/24 18:45 Anti-Inflamma lisinopril AdvReac Intermediate Cough Verified 01/10/24 18:45 Home Medications Medication Instructions Recorded Confirmed Type acetaminophen 325 mg tablet 650 mg PO Q6 PRN Fever Or Pain 09/28/23 01/10/24 History (Tylenol) brimonidine 0.2 %-timolol 0.5 % 1 drp OPB BID 09/28/23 01/10/24 History eye drops bumetanide 2 mg tablet 2 mg PO QAM 09/28/23 01/10/24 History calcium carbonate 1,000 mg PO Q2H PRN Heartburn 09/28/23 01/10/24 History carboxymethylcellulose sodium 1 % 1 drp OPL Q6H PRN DRYNESS/WATERING 09/28/23 01/10/24 History eye drops (Artificial Tears (carboxymethylcellulose)) famotidine 10 mg tablet 10 mg PO HS 09/28/23 01/10/24 History hydralazine 50 mg tablet 75 mg PO TID 09/28/23 01/10/24 History levothyroxine 75 mcg tablet 75 mcg PO QAM 09/28/23 01/10/24 History losartan 100 mg tablet 100 mg PO QAM 09/28/23 01/10/24 History magnesium oxide 500 mg PO HS 09/28/23 01/10/24 History ondansetron HCl 4 mg tablet 4 mg PO Q6H PRN Nausea 09/28/23 01/10/24 History oxycodone 5 mg tablet 5 mg PO Q6H PRN Pain 5-8 09/28/23 01/10/24 History oxycodone 5 mg tablet 10 mg PO Q6H PRN Pain 9-10 09/28/23 01/10/24 History pantoprazole 40 mg tablet,delayed 40 mg PO DAILY 09/28/23 01/10/24 History release ropinirole 2 mg tablet 2 mg PO HS 09/28/23 01/10/24 History travoprost 0.004 % eye drops 1 drp OPB HS 09/28/23 01/10/24 History amlodipine 10 mg tablet 10 mg PO DAILY #10 tabs 10/03/23 01/10/24 Rx carvedilol 6.25 mg tablet 6.25 mg PO BID 10/23/23 01/10/24 History venlafaxine 150 mg 150 mg PO QAM 10/23/23 01/10/24 History capsule,extended release 24 hr apixaban 2.5 mg tablet (Eliquis) 2.5 mg PO BID #0 tabs 10/30/23 01/10/24 Rx cyanocobalamin (vitamin B-12) 500 1,000 mcg (2 x 500 mcg) PO QAM #0 10/30/23 01/10/24 Rx mcg tablet tabs folic acid 1 mg tablet 1 mg PO QAM #0 tabs 10/30/23 01/10/24 Rx loratadine 5 mg-pseudoephedrine ER 1 tab PO Q12H PRN allergy symptoms 10/30/23 01/10/24 Rx 120 mg tablet,extended #0 tabs release,12hr (Claritin-D 12 Hour) sennosides 8.6 mg tablet (Senokot) 8.6 mg PO QAM #0 tabs 10/30/23 01/10/24 Rx diclofenac sodium 1 % topical gel 2 g topical QID 12/04/23 01/10/24 History prednisone 20 mg tablet 20 mg PO QAM 12/04/23 01/10/24 History pregabalin 75 mg capsule 75 mg PO TID 12/04/23 01/10/24 History venlafaxine 37.5 mg 37.5 mg PO QAM depression 12/04/23 01/10/24 History capsule,extended release 24 hr polyethylene glycol 3350 17 gram 17 g PO QAM 01/10/24 01/10/24 History oral powder packet (Miralax) polysaccharide iron complex 150 mg 150 mg PO DAILY 01/10/24 01/10/24 History iron capsule (Ferrex) potassium chloride 20 mEq 20 meq PO TID 01/10/24 01/10/24 History tablet,extended release(part/cryst) protein supplement 1 ea PO BID 01/10/24 01/10/24 History Patient History Medical History (Updated 01/10/24 @ 22:02 by Background Justin) Gram-negative bacteremia Streptococcal bacteremia Community acquired pneumonia Septic shock Pneumonia Metabolic encephalopathy DVT (deep venous thrombosis) Non-ST elevation CT (NSTEMI) CKD (chronic kidney disease), stage III [facility] Low hemoglobin and low hematocrit Dysphagia Gait abnormality Weakness Low back pain Personal history of venous thrombosis and embolism Other intestinal Escherichia coli infections Cognitive communication deficit Adult failure to thrive Herniated lumbar disc without myelopathy Left central disc herniation at L5-S1 Lumbar radiculopathy High cholesterol Anxiety Hypertension Surgical History History of total bilateral knee replacement (TKR) History of carpal tunnel release RIGHT HAND Hx of arthroscopy RIGHT KNEE (MENISCUS) Hx of tonsillectomy Hx of hysterectomy Hx laparoscopic cholecystectomy Family History Mother Family history of reaction to anesthesia SLOW TO AWAKEN Social History Smoking Status: Never smoker Second Hand Exposure: No; Do You Dip or Chew Tobacco: No; Hx Alcohol Use: No Hx Substance Use: No Preferred Language: Telugu Communication Ability: Effective Communication Ability Comment: Pt disoriented, but able to communicate needs Visual Impairment: No Limitations Supervisor Fruit Grading Required: No Beliefs That Will Affect Care: None marital status: Single Current Living Situation: Personal Care Facility Current Living Situation Comment: [facility] How many Children do You have: 0 Feels Safe at Home: Yes Assistive Devices: Hospital Bed, Mechanical Lift and Wheelchair Results & Data Vital Signs (Past 12 Hours) Vital Signs Temp Pulse Pulse Resp BP Pulse Ox O2 Del Method 01/11/24 11:03 36.7 C 84 18 122/67 91 Room Air 01/11/24 07:58 Room Air 01/11/24 07:21 88 01/11/24 07:09 36.7 C 90 18 143/72 H 96 Oxymask 01/11/24 03:35 36.7 C 92 H 16 129/69 97 Oxymask O2 Flow Rate 01/11/24 11:03 01/11/24 07:58 01/11/24 07:21 01/11/24 07:09 2 01/11/24 03:35 2 Laboratory Results Laboratory Results - last 48 hr 01/10/24 01/10/24 01/10/24 18:06 18:35 19:00 WBC 15.99 H RBC 3.12 L Hgb 9.4 L Hct 29.9 L MCV 95.8 MCH 30.1 MCHC 31.4 L RDW Std Deviation 61.0 H RDW Coeff of Mario 18.0 H Plt Count 126 L MPV 10.9 Immature Gran % (Auto) 2.2 Neut % (Auto) 90.9 Lymph % (Auto) 2.5 Callahan % (Auto) 4.0 Eos % (Auto) 0.2 Baso % (Auto) 0.2 Neut # (Auto) 14.54 H Lymph # (Auto) 0.40 L Callahan # (Auto) 0.64 H Eos # (Auto) 0.03 Baso # (Auto) 0.03 Immature Gran # (Auto) 0.35 H Absolute Nucleated RBC 0.13 H Nucleated RBC % (auto) 0.8 Dohle Bodies 2+ Polychromasia 1+ PT 11.4 INR 1.1 VBG pH 7.50 H VBG pCO2 33 L VBG pO2 64 VBG HCO3 26 VBG O2 Saturation 94.1 VBG Base Excess 2.9 Sodium 139 Potassium 4.7 Chloride 105 Carbon Dioxide 24 Anion Gap 10 BUN 58 H Creatinine 2.14 H Est Cr Clr Drug Dosing 19.7 eGFR 22.71 BUN/Creatinine Ratio 27.1 H Glucose 120 H Lactate 2.3 H* Calcium 8.1 L Magnesium 2.3 Total Bilirubin 1.0 AST 34 ALT 60 H Alkaline Phosphatase 93 Troponin I High Sens 39.2 H Total Protein 5.9 L Albumin 3.2 L Globulin 2.7 Albumin/Globulin Ratio 1.2 Procalcitonin 32.40 H TSH 0.506 Urine Color Yellow Urine Appearance Clear Urine pH 6.5 Ur Specific [place] 1.009 Urine Protein 2+ H Urine Glucose (UA) Negative Urine Ketones Negative Urine Blood 2+ H Urine Nitrite Negative Urine Bilirubin Negative Urine Urobilinogen Negative Ur Leukocyte Esterase 1+ H Urine WBC (Auto) 21-50 H Urine RBC (Auto) >20 H U Hyaline Cast (Auto) 0-2 U Epithel Cells (Auto) 0-2 Urine Bacteria (Auto) None Seen Nasal Screen MRSA (PCR) Adenovirus (PCR) Not Detected B. pertussis DNA (PCR) Not Detected B.parapertussis DNA PCR Not Detected C. pneumoniae DNA (PCR) Not Detected Coronavirus OC43 (PCR) Not Detected Coronavirus HKU1 (PCR) Not Detected Coronavirus 229E (PCR) Not Detected SARS-CoV-2 (PCR) Not Detected Coronavirus NL63 (PCR) Not Detected Enterobacterales (PCR) DETECTED A E. coli (PCR) DETECTED A Human Metapneumovir PCR Not Detected Influenza Type A (PCR) Not Detected Influenza Type B (PCR) Not Detected M. pneumoniae (PCR) Not Detected Parainfluenza 1 (PCR) Not Detected Parainfluenza 2 (PCR) Not Detected Parainfluenza 3 (PCR) Not Detected Parainfluenza 4 (PCR) Not Detected RSV (PCR) Not Detected Entero/Rhino (PCR) DETECTED A mcr-1 Colistin Res Gene PCR Not Detected blaIMP Car res Gene PCR Not Detected KPC-Carbap Res Gene PCR Not Detected blaNDM Car Res Gene PCR Not Detected OXA-48 Carbapenem Resis Gene (PCR) Not Detected blaVIM Car Res Gene PCR Not Detected CTX-M Gene Resistance (PCR) DETECTED A* Bld Cult ID Panel PCR See PCR Comment 01/10/24 01/11/24 20:33 Unknown WBC RBC Hgb Hct MCV MCH MCHC RDW Std Deviation RDW Coeff of Mario Plt Count MPV Immature Gran % (Auto) Neut % (Auto) Lymph % (Auto) Callahan % (Auto) Eos % (Auto) Baso % (Auto) Neut # (Auto) Lymph # (Auto) Callahan # (Auto) Eos # (Auto) Baso # (Auto) Immature Gran # (Auto) Absolute Nucleated RBC Nucleated RBC % (auto) Dohle Bodies Polychromasia PT INR VBG pH VBG pCO2 VBG pO2 VBG HCO3 VBG O2 Saturation VBG Base Excess Sodium Potassium Chloride Carbon Dioxide Anion Gap BUN Creatinine Est Cr Clr Drug Dosing eGFR BUN/Creatinine Ratio Glucose Lactate 1.2 Calcium Magnesium Total Bilirubin AST ALT Alkaline Phosphatase Troponin I High Sens 28.9 H D Total Protein Albumin Globulin Albumin/Globulin Ratio Procalcitonin TSH Urine Color Urine Appearance Urine pH Ur Specific [place] Urine Protein Urine Glucose (UA) Urine Ketones Urine Blood Urine Nitrite Urine Bilirubin Urine Urobilinogen Ur Leukocyte Esterase Urine WBC (Auto) Urine RBC (Auto) U Hyaline Cast (Auto) U Epithel Cells (Auto) Urine Bacteria (Auto) Nasal Screen MRSA (PCR) Positive A Adenovirus (PCR) B. pertussis DNA (PCR) B.parapertussis DNA PCR C. pneumoniae DNA (PCR) Coronavirus OC43 (PCR) Coronavirus HKU1 (PCR) Coronavirus 229E (PCR) SARS-CoV-2 (PCR) Coronavirus NL63 (PCR) Enterobacterales (PCR) E. coli (PCR) Human Metapneumovir PCR Influenza Type A (PCR) Influenza Type B (PCR) M. pneumoniae (PCR) Parainfluenza 1 (PCR) Parainfluenza 2 (PCR) Parainfluenza 3 (PCR) Parainfluenza 4 (PCR) RSV (PCR) Entero/Rhino (PCR) mcr-1 Colistin Res Gene PCR blaIMP Car res Gene PCR KPC-Carbap Res Gene PCR blaNDM Car Res Gene PCR OXA-48 Carbapenem Resis Gene (PCR) blaVIM Car Res Gene PCR CTX-M Gene Resistance (PCR) Bld Cult ID Panel PCR
[2024-01-11 13:06] LABS: Hemoglobin 7.6 g/dl (12.0-16.0); Mean Corpuscular Hemoglobin 29.7 pg (25.0-34.0); Mean Corpuscular Hgb Conc 31.7 g/dL (32.0-36.0); Mean Corpuscular Volume 93.8 fL (80.0-100.0); Mean Platelet Volume 10.9 fL (9.4-12.4); Platelet Count 85 K/uL (130-400); RDW Coefficient of Variation 16.9 % (11.5-14.5); RDW Standard Deviation 57.1 fL (36.4-46.3); Red Blood Count 2.56 M/uL (4.20-5.40); White Blood Count 14.33 K/ul (4.8-10.8)
[2024-01-11 13:27] LABS: Albumin Globulin Ratio 1.4 (0.9-2); Albumin Level 3.3 gm/dl (3.4-5.0); BUN Creatinine Ratio 29.2 (10-20); Basophils # (auto) 0.01 K/uL (0.00-0.20); Basophils % (auto) 0.1 %; Calcium 8.4 mg/dl (8.6-10.3); Creatinine Clr Calc Pharmacy 23.6 ml/min; Dohle Bodies 1+; Globulin 2.3 gm/dl (2.5-4.0); Immature Granulocytes # (auto) 0.29 K/uL (0.01-0.20); Lymphocytes # (auto) 0.31 K/uL (1.20-3.40); Lymphocytes % (auto) 2.2 %; Magnesium 2.3 mg/dl (1.7-2.4); Monocytes # (auto) 0.69 K/uL (0.11-0.59); Monocytes % (auto) 4.8 %; Neutrophils # (auto) 13.03 K/uL (1.40-6.50); Neutrophils % (auto) 90.9 %; Polychromasia 1+; Potassium 3.6 mmol/L (3.5-5.1); Total Protein 5.6 gm/dl (6.0-8.3)
--- NOTE | 2024-01-11 14:42 | Hospitalist Progress Note ---
Date of Service January 11, 2024 Assessment & Plan (1) Sepsis: (2) Acute UTI: (3) DENNIS (acute kidney injury): (4) Chronic kidney disease, stage IV (severe): (5) Thrombocytopenia: (6) Pulmonary hypertension: (7) Rheumatoid arthritis: (8) Essential hypertension: Plan Pt presented to ED with tachycardia, hypotension, fever, leukocytosis, and acutely elevated creatinine. Lactate was 2.3 and procal was 32.4. Troponin was 39.2 with repeat at 28.9. She was given 500ml NS bolus and IV meropenem 500mg. Pt's BP and tachycardia did not improve. Upon admission, she was given 1000mL NS bolus, 50mg 25% albumin IV, and 100mg hydrocortisone IV. Sepsis ID consult appreciated continue meropenem, changed to extended dose 1g IV q12h f/u sensitivities and cultures Continue hydrocortisone 100mg IV q8h UTI Pt has positive UA and was reporting urinary symptoms at the SN[facility]. Recent hx of ESBL f/u urine culture DENNIS Improving s/p fluid resuscitation - continue to trend Baseline is 1.2. Continue IVF Monitor Cr CKD-IV Baseline Cr is 1.2. Renal dose of lyrica Thrombocytopenia Platelets continue to trend down Serial CBC Monitor for signs of clotting Holding Eliquis, will consider resuming after CBC in AM Pulmonary hypertension Last echo was in 10/02 which showed EF of 55-60% and severe pulmonary hypertension Continue to hold carvedilol 6.25 mg BID, monitor HR, BP RA Pt was taking daily prednisone 20mg PO for RA symptoms. Likely adrenal suppression. Holding home med of prednisone Started Hydrocortisone 100mg IV q8h, plan to continue for 1-2 days HTN Patient has history of essential HTN. BP currently acceptable Continue to hold amlodipine, losartan, bumetanide, and hydralazine Other chronic conditions: GERD, famotidine 10 mg and pantoprazole 40mg Arthritic pain, hold oxycodone, continue diclofenac gel Depression/anxiety, hold venlafaxine Glaucoma, continue travoprost 0.004% drop, artificial tears Hypothyroidism, Continue levothyroxine 75mcg Dispo: PCU Diet: heart healthy DVT prohyylaxis: SCD Code: DNR Admission and Anticipated Discharge Date Admission Date: January 10, 2024 Supervising Physician Co-Signing Physician Notes Attending attestation Pt seen and examined in concert with Dr. Quijano. In agreement with the documented findings as noted in the resident documentation with any exceptions or additions as noted here. Resting in bed with stable complaint of bilateral LE pain controlled on present regimen. Reports no new fevers. On examination, S1/S2 nl RRR no MCG. CTAB. Abd NT/ND BS+ve Sepsis in the setting of recurrent urinary tract infection concerning for ESBL - ID consult - continue meropenem, follow up UCx. Trend WBC, creatinine and electrolytes daily. Rheumatoid arthritis w/ chronic steroid use in the setting of infection - continue hydrocortisone use and consider return to baseline prednisone 10mg in PM DENNIS on CKDIIIb - improving with IV hydration. Trend Cr daily. Thrombocytopenia - ongoing downward trend - potentially dilutional. Repeat platelet count in PM and consider transfusion vs. further evaluation vs. monitoring based on result HTN - holding medications w/ low normal range BP. Continue to monitor. Else see resident documentation as noted. Subjective Patient seen and evaluated at bedside this morning. No acute events overnight. Resting comfortably in bed this am. Has some leg pain, feels scds are helping with this. Patient denies CP, SOB, abdominal pain. VSS. Neutrophilic white count remains present, slightly improved from admission. Review of Systems Review of Systems: reviewed, per HPI Physical Exam Physical Exam: Constitutional: ill-appearing, no acute distress HEENT: NCAT, no conjunctival injection CV: regular rhythm, +systolic ejection murmur, extremities well-perfused, no LE edema Resp: CTABL, no wheezes/rales/rhonchi appreciated, no increased work of breathing GI: nondistended MSK: no gross deformities appreciated Skin: warm, dry, no rash appreciated Neuro: alert, oriented, no focal neurologic deficit appreciated Results & Data Results & Data Vital Signs (Past 12 Hours) Vital Signs Temp Pulse Pulse Resp BP Pulse Ox O2 Del Method 01/11/24 11:03 36.7 C 84 18 122/67 91 Room Air 01/11/24 07:58 Room Air 01/11/24 07:21 88 01/11/24 07:09 36.7 C 90 18 143/72 H 96 Oxymask 01/11/24 03:35 36.7 C 92 H 16 129/69 97 Oxymask O2 Flow Rate 01/11/24 11:03 01/11/24 07:58 01/11/24 07:21 01/11/24 07:09 2 01/11/24 03:35 2 Resident Activity Tracking Resident Involvement: Resident Care Provided Care Provided: Adult Hospital Medicine (7) Rheumatoid arthritis Rheumatoid arthritis location: unspecified site Rheumatoid factor presence: unspecified presence Qualified Code(s): M06.9 - Rheumatoid arthritis, unspecified
[2024-01-11] MEDS: ACETAMINOPHEN 325 MG TAB PO PRN (17:09)
[2024-01-11] MEDS: MEROPENEM 1,000 MG OVER 3 HRS IV SCH (17:40)
[2024-01-12 08:11] LABS: Albumin Globulin Ratio 1.3 (0.9-2); Albumin Level 3.2 gm/dl (3.4-5.0); BUN Creatinine Ratio 32.2 (10-20); Bilirubin,Total 0.9 mg/dl (0.2-1.0); C Reactive Protein 24.21 mg/dl (0-0.5); Calcium 8.7 mg/dl (8.6-10.3); Creatinine Clr Calc Pharmacy 28.2 ml/min; Globulin 2.5 gm/dl (2.5-4.0); Magnesium 2.3 mg/dl (1.7-2.4); Potassium 3.3 mmol/L (3.5-5.1); Total Protein 5.7 gm/dl (6.0-8.3)
[2024-01-12 08:13] LABS: Basophils # (auto) 0.02 K/uL (0.00-0.20); Basophils % (auto) 0.1 %; Immature Granulocytes # (auto) 0.13 K/uL (0.01-0.20); Immature Granulocytes % (auto) 0.9 %; Lymphocytes # (auto) 0.48 K/uL (1.20-3.40); Lymphocytes % (auto) 3.4 %; Mean Corpuscular Hemoglobin 29.3 pg (25.0-34.0); Mean Corpuscular Volume 91.6 fL (80.0-100.0); Mean Platelet Volume 11.4 fL (9.4-12.4); Monocytes # (auto) 0.97 K/uL (0.11-0.59); Monocytes % (auto) 6.9 %; Neutrophils # (auto) 12.41 K/uL (1.40-6.50); Neutrophils % (auto) 88.7 %; Platelet Count 88 K/uL (130-400); Polychromasia 1+; RDW Standard Deviation 52.9 fL (36.4-46.3); Red Blood Count 2.73 M/uL (4.20-5.40); White Blood Count 14.01 K/ul (4.8-10.8)
[2024-01-12] MEDS: POTASSIUM CHLORIDE CRTAB 20 MEQ TABCR PO STA (09:38)
--- NOTE | 2024-01-12 11:24 | Hospitalist Progress Note ---
Date of Service January 12, 2024 Assessment & Plan (1) Sepsis: (2) Chronic kidney disease, stage IV (severe): (3) Thrombocytopenia: (4) Pulmonary hypertension: (5) Rheumatoid arthritis: (6) Essential hypertension: Plan Pt presented to ED with tachycardia, hypotension, fever, leukocytosis, and acutely elevated creatinine. Lactate was 2.3 and procal was 32.4. Troponin was 39.2 with repeat at 28.9. She was given 500ml NS bolus and IV meropenem 500mg. Pt's BP and tachycardia did not improve. Upon admission, she was given 1000mL NS bolus, 50mg 25% albumin IV, and 100mg hydrocortisone IV. Sepsis ID consult appreciated continue meropenem, changed to extended dose 1g IV q12h f/u sensitivities and cultures d/c stress dose steroids - resume usual 20mg prednisone UTI Pt has positive UA and was reporting urinary symptoms at the SNF. Recent hx of ESBL f/u urine culture DENNIS Improving s/p fluid resuscitation - continue to trend Baseline is 1.2. Continue IVF Monitor Cr CKD-IV Baseline Cr is 1.2. Renal dose of lyrica Thrombocytopenia Platelets have stabilized Serial CBC Monitor for signs of clotting Holding Eliquis, will consider resuming after CBC in AM Pulmonary hypertension Last echo was in 10/02 which showed EF of 55-60% and severe pulmonary hypertension Continue to hold carvedilol 6.25 mg BID, monitor HR, BP RA Pt was taking daily prednisone 20mg PO for RA symptoms. Restart home dose, d/c stress dose hydrocortisone HTN Patient has history of essential HTN. BP currently mildly elevated, given recent sepsis and borderline hypotension, will continue to monitor and restart in am if consistently elevated. Continue to hold amlodipine, losartan, bumetanide, and hydralazine Other chronic conditions: GERD, famotidine 10 mg and pantoprazole 40mg Arthritic pain, hold oxycodone, continue diclofenac gel Depression/anxiety, hold venlafaxine Glaucoma, continue travoprost 0.004% drop, artificial tears Hypothyroidism, Continue levothyroxine 75mcg Dispo: PCU Diet: heart healthy DVT prohyylaxis: SCD Code: DNR Admission and Anticipated Discharge Date Admission Date: January 10, 2024 Supervising Physician Co-Signing Physician Notes Attending attestation Pt seen and examined in concert with Dr. Quijano. In agreement with the documented findings as noted in the resident documentation with any exceptions or additions as noted here. Resting in bed with stable complaint of bilateral LE pain controlled on present regimen. On examination, S1/S2 nl RRR no MCG. CTAB. Abd NT/ND BS+ve Sepsis in the setting of recurrent urinary tract infection concerning for ESBL - ID consult - continue meropenem, follow up UCx sensitivities. Trend WBC, creatinine and electrolytes daily. Rheumatoid arthritis w/ chronic steroid use in the setting of infection - return to baseline prednisone 10mg and monitor DENNIS on CKDIIIb - improved w/ IV hydration. Trend Cr daily. Thrombocytopenia - stabilized at ~90 - partially dilutional. Repeat platelet count and consider restart DOAC based on stability. HTN - holding medications w/ low normal range BP. Continue to monitor. Else see resident documentation as noted. Subjective Patient seen and evaluated at bedside this morning. No acute events overnight. Continues to complain of LE pain. Otherwise, no acute complaints. VSS. White count with mild improvement. Hypernatremia in setting of meropenem use. Hypokalemic this am. DENNIS improving. Review of Systems Review of Systems: reviewed, per HPI Physical Exam Physical Exam: Constitutional: ill-appearing, no acute distress HEENT: NCAT, no conjunctival injection CV: regular rhythm, +systolic ejection murmur, extremities well-perfused, no LE edema Resp: CTABL, no wheezes/rales/rhonchi appreciated, no increased work of breathing GI: nondistended MSK: no gross deformities appreciated Skin: warm, dry, no rash appreciated Neuro: alert, oriented, no focal neurologic deficit appreciated Results & Data Results & Data Vital Signs (Past 12 Hours) Vital Signs Temp Pulse Pulse Resp BP Pulse Ox O2 Del Method 01/12/24 11:02 36.6 C 77 18 159/74 H 97 Room Air 01/12/24 09:29 Room Air 01/12/24 07:25 36.7 C 76 18 167/73 H 97 Room Air 01/12/24 07:21 77 01/12/24 03:07 36.4 C L 77 17 129/72 96 Room Air Resident Activity Tracking Resident Involvement: Resident Care Provided Care Provided: Adult Hospital Medicine (5) Rheumatoid arthritis Rheumatoid arthritis location: unspecified site Rheumatoid factor presence: unspecified presence Qualified Code(s): M06.9 - Rheumatoid arthritis, unspecified
[2024-01-13] MEDS ORDERED: POLYETHYLENE (MIRALAX) 17 GM PACK PO PRN ×2 (06:20→11:27)
[2024-01-13 07:07] LABS: Creatinine Clr Calc Pharmacy 34.4 ml/min
[2024-01-13] MEDS: predniSONE 20 MG TAB PO SCH (08:56)
[2024-01-13 09:18] LABS: Basophils # (auto) 0.02 K/uL (0.00-0.20); Basophils % (auto) 0.2 %; Eosinophils # (auto) 0.06 K/uL (0.00-0.50); Eosinophils % (auto) 0.6 %; Hematocrit (blood only) 25.1 % (37.0-47.0); Hemoglobin 7.9 g/dl (12.0-16.0); Immature Granulocytes # (auto) 0.11 K/uL (0.01-0.20); Immature Granulocytes % (auto) 1.2 %; Lymphocytes # (auto) 0.89 K/uL (1.20-3.40); Lymphocytes % (auto) 9.4 %; Mean Corpuscular Hemoglobin 29.4 pg (25.0-34.0); Mean Corpuscular Hgb Conc 31.5 g/dL (32.0-36.0); Mean Corpuscular Volume 93.3 fL (80.0-100.0); Mean Platelet Volume 10.8 fL (9.4-12.4); Monocytes # (auto) 0.81 K/uL (0.11-0.59); Monocytes % (auto) 8.5 %; Neutrophils % (auto) 80.1 %; Platelet Count 107 K/uL (130-400); RDW Coefficient of Variation 15.8 % (11.5-14.5); Red Blood Count 2.69 M/uL (4.20-5.40); White Blood Count 9.49 K/ul (4.8-10.8)
[2024-01-13 09:27] LABS: Albumin Globulin Ratio 1.3 (0.9-2); Albumin Level 3.1 gm/dl (3.4-5.0); BUN Creatinine Ratio 29.2 (10-20); Bilirubin,Total 0.9 mg/dl (0.2-1.0); Calcium 8.3 mg/dl (8.6-10.3); Creatinine Clr Calc Pharmacy 32.3 ml/min; Globulin 2.4 gm/dl (2.5-4.0); Potassium 2.9 mmol/L (3.5-5.1); Total Protein 5.5 gm/dl (6.0-8.3)
[2024-01-13 09:42] LABS: Polychromasia 1+
[2024-01-13] MEDS: POTASSIUM CHLORIDE CRTAB 20 MEQ TABCR PO STA (10:32)
--- NOTE | 2024-01-13 12:02 | Hospitalist Progress Note ---
Date of Service January 13, 2024 Assessment & Plan (1) Sepsis: (2) Chronic kidney disease, stage IV (severe): (3) Thrombocytopenia: (4) Pulmonary hypertension: (5) Rheumatoid arthritis: (6) Essential hypertension: Plan Pt presented to ED with tachycardia, hypotension, fever, leukocytosis, and acutely elevated creatinine. Lactate was 2.3 and procal was 32.4. Troponin was 39.2 with repeat at 28.9. She was given 500ml NS bolus and IV meropenem 500mg. Pt's BP and tachycardia did not improve. Upon admission, she was given 1000mL NS bolus, 50mg 25% albumin IV, and 100mg hydrocortisone IV. Sepsis ID consult appreciated continue meropenem, changed to extended dose 1g IV q8h now that kidney fxn has improved sensitivities returned today, will discuss with ID for dc planning - The facility that she came from can administer IV abx UTI Pt has positive UA and was reporting urinary symptoms at the SNF. Recent hx of ESBL Urine culture again demonstrates ESBL e. coli DENNIS Improving, continue to trend Baseline is 1.2. Monitor Cr CKD-IV Baseline Cr is 1.2. Renal dose of lyrica Thrombocytopenia Platelets up-trending Serial CBC Monitor for signs of clotting Restart renal dose Eliquis Pulmonary hypertension Last echo was in 10/02 which showed EF of 55-60% and severe pulmonary hypertension Continue to hold carvedilol 6.25 mg BID, monitor HR, BP RA Pt was taking daily prednisone 20mg PO for RA symptoms. Restart home dose, d/c stress dose hydrocortisone HTN Patient has history of essential HTN. Will restart home amlodipine in setting of mildly elevated BP Continue to hold losartan, bumetanide, and hydralazine Other chronic conditions: GERD, famotidine 10 mg and pantoprazole 40mg Arthritic pain, hold oxycodone, continue diclofenac gel Depression/anxiety, hold venlafaxine Glaucoma, continue travoprost 0.004% drop, artificial tears Hypothyroidism, Continue levothyroxine 75mcg Dispo: PCU Diet: heart healthy DVT prohyylaxis: SCD Code: DNR Admission and Anticipated Discharge Date Admission Date: January 10, 2024 Supervising Physician Co-Signing Physician Notes Attending attestation Pt seen and examined in concert with Dr. Quijano. In agreement with the documented findings as noted in the resident documentation with any exceptions or additions as noted here. Resting in bed with stable complaint of bilateral LE pain controlled on present regimen. Questions answered re: abx choice and follow up based on ID recommendations. On examination, S1/S2 nl RRR no MCG. CTAB. Abd NT/ND BS+ve Sepsis in the setting of recurrent urinary tract infection concerning for ESBL - ID consult - continue meropenem. Sensitivities allow for ertapenem but recent failure and hypernatremia may consider other choices. Trend WBC, creatinine and electrolytes daily. Rheumatoid arthritis w/ chronic steroid use in the setting of infection - baseline prednisone 10mg, monitor DENNIS on CKDIIIb - improved w/ IV hydration. Trend Cr daily. Thrombocytopenia - stabilized at ~90 - partially dilutional. Restarted apxiaban today. HTN - Restart amlodipine. Holding medications w/ low normal range BP. Continue to monitor. Else see resident documentation as noted. Subjective Patient seen and evaluated at bedside this morning. No acute events overnight. No acute concerns today. VSS. WBC has normalized. Na remains high in the setting of meropenem use. Potassium remains low. Cr continues to improve. Review of Systems Review of Systems: reviewed, per HPI Physical Exam Physical Exam: Constitutional: ill-appearing, no acute distress HEENT: NCAT, no conjunctival injection CV: regular rhythm, +systolic ejection murmur, extremities well-perfused, no LE edema Resp: CTABL, no wheezes/rales/rhonchi appreciated, no increased work of breathing GI: nondistended MSK: no gross deformities appreciated Skin: warm, dry, no rash appreciated Neuro: alert, oriented, no focal neurologic deficit appreciated Results & Data Results & Data Vital Signs (Past 12 Hours) Vital Signs Temp Pulse Pulse Resp BP Pulse Ox O2 Del Method 01/13/24 10:51 36.5 C 67 18 154/77 H 98 Room Air 01/13/24 09:52 Room Air 01/13/24 07:49 73 01/13/24 07:18 36.8 C 68 18 169/73 H 97 Room Air 01/13/24 04:04 36.7 C 70 16 168/73 H 96 Room Air Resident Activity Tracking Resident Involvement: Resident Care Provided Care Provided: Adult Hospital Medicine (5) Rheumatoid arthritis Rheumatoid arthritis location: unspecified site Rheumatoid factor presence: unspecified presence Qualified Code(s): M06.9 - Rheumatoid arthritis, unspecified
[2024-01-13] MEDS: APIXABAN 2.5 MG TAB PO SCH (20:41)
[2024-01-13] MEDS: MEROPENEM 1,000 MG OVER 3 HRS IV SCH (22:09)
[2024-01-14 07:59] LABS: BUN Creatinine Ratio 29.1 (10-20); Calcium 8.3 mg/dl (8.6-10.3); Potassium 3.7 mmol/L (3.5-5.1)
[2024-01-14 08:02] LABS: Basophils # (auto) 0.02 K/uL (0.00-0.20); Basophils % (auto) 0.2 %; Eosinophils # (auto) 0.04 K/uL (0.00-0.50); Eosinophils % (auto) 0.4 %; Hematocrit (blood only) 27.6 % (37.0-47.0); Hemoglobin 9.1 g/dl (12.0-16.0); Immature Granulocytes # (auto) 0.46 K/uL (0.01-0.20); Immature Granulocytes % (auto) 4.4 %; Lymphocytes # (auto) 1.22 K/uL (1.20-3.40); Lymphocytes % (auto) 11.6 %; Mean Corpuscular Hemoglobin 29.8 pg (25.0-34.0); Mean Corpuscular Volume 90.5 fL (80.0-100.0); Mean Platelet Volume 10.3 fL (9.4-12.4); Monocytes # (auto) 0.94 K/uL (0.11-0.59); Monocytes % (auto) 8.9 %; Neutrophils # (auto) 7.85 K/uL (1.40-6.50); Neutrophils % (auto) 74.5 %; Nucleated RBC # (auto) 0.03 K/uL (0.00-0.12); Nucleated RBC % (auto) 0.3 %; Platelet Count 126 K/uL (130-400); RDW Coefficient of Variation 15.9 % (11.5-14.5); RDW Standard Deviation 51.2 fL (36.4-46.3); Red Blood Count 3.05 M/uL (4.20-5.40); White Blood Count 10.53 K/ul (4.8-10.8)
[2024-01-14] MEDS: amLODIPine BESYLATE 5 MG TAB PO SCH (09:18)
--- NOTE | 2024-01-14 13:04 | Infectious Disease Progress Nt ---
Date of Service January 14, 2024 Assessment & Plan (1) Acute UTI: (2) Bacteremia: (3) ESBL (extended spectrum beta-lactamase) producing bacteria infection: (4) Leukocytosis: Plan This is an 83-year-old female with a past medical history of rheumatoid arthritis on chronic prednisone, pulmonary hypertension, right lower extremity DVT, NSTEMI,CHF, CKD 1V, bilateral total knee replacement, lumbar stenosis, admitted with group B strep bacteremia likely 2/2 left heel ulcer/cellulitis status post 14 days of antibiotics with ceftriaxone -->cefpodoxime, admitted 10/22-10/29 with septic shock 2/2 to ESBL E. coli bacteremia/UTI/- pneumonia s/p 14 d ertapenem and 7 d linezolid , admitted 12/03 - 12/06 with ESBL E. coli bacteremia, Proteus mirabilis and ESBL E. coli/?UTI, it was thought that the bacteremia She did have CVA tenderness on exam.Source was either urinary vs gut translocation. She completed 14 days of ertapenem that ended 12/19/2023.. She returns to the ED on 01/09 with increased lethargy and urinary symptoms over the past week. She was found to be fatigued, weak, lethargic and tachycardic at her facility. In the ED,temperature 39.4, pulse 114, RR 16, BP 124/77, O2 sats 94% on room air. Labs: WBC 15.99, platelets 126, BUN 58, creatinine 2.14. Urinalysis 2150 WBC, 50 RBC, 1+ leukocyte esterase, negative nitrites. Procalcitonin 32.40.Respiratory viral panel positive for entero/rhinovirus. Blood cultures with ESBL E. coli on ID : bottles + GNR. Urine culture 40K CFU E. coli pending sensitivity . AT her facility UC obtained, 01/07 grew > 100 K E. colii (sensitivities to follow). CTAP demonstrated improvement in bilateral pleural effusions with near complete resolution of right and trace left pleural effusion. No obstructing stones. No hydronephrosis. No acute abdominal pathology.. Chest x-ray with cardiomegaly without active disease. CT head with no acute process.. She was started on meropenem. ID consulted for multiple resistant UTIs, new gram-negative bacteremia. Econsult performed as no Telepresenter available at time of consults Microbiology: Urine culture 01/08/2024 (outpatient)> 100 K E. coli esbl RVP + entero/rhinovirus detected Urine culture 01/10/2024 40K E. coli esbl Blood culture 01/09/ gram-negative rods open (ESBL E. coli on BC ID) MRSA screen + 01/10 Antibiotics: Meropenem 01/09ongoing # ESBL E. coli bacteremia # E. coli bacteriuria # Entero virus/rhinovirus detected on respiratory panel # History of recurrent ESBL E. coli bacteremia/UTI # Elevated procalcitonin (renal dysfunction) ESBL ecoli in urine and BC . Unclear why she continues to have recurrence. She has bl TKA , but no signs of infection of knee on exam. No effusions. left heel ulcer does not appear infected. She complains of BL LE pain prior to all of her recent admissions. Improved now. Recommendations: Switched to Ertapenem 1 g Iv daily. EOT 01/20/24 ( total 10 d of abx) IF no evidence of deep space infection as per CT LE She complains of BL LE pain, would check BL CT scan to rule out any ab normalities ( ie prosthetic knee eval ) given recurrence of esbl ecoli bacteremia Mariely Moscoso MD, MPH Infectious Disease [facility] Call [phone] with questions Admission and Anticipated Discharge Date Admission Date: January 10, 2024 Subjective Subsequent visit was provided via telemedicine using two-way real-time interactive telecommunication between the patient and the telemedicine provider. For the duration of the visit, the provider was performing the assessment from a different facility than the patient. This includesuse of bluetooth stethoscope forauscultationperformed by the telepresenter that the telemedicine provider can hear if described in the physical exam. Network Developer contact information: Please call [facility] Call Center . (Phone Number For Physician Use Only) After establishing a telemedicine visit, patient was: Patient was verified with two unique identifiers Time Spent with Patient: Subsequent => 35 min She complains of BL LE pain ( but improving since admission) Physical Exam Physical Exam: Gen- NAD Neck- supple HEENT - anicteric sclera Abd- soft - no suprapubic tenderness, NO CVA tenderness Ext- BL TKA incision healed well , No effusions. BL calf pain and edema. Left heel ulcer- Not infected Neuro- AAO times 3 Psych- normal mood Results & Data Vital Signs (Past 12 Hours) Vital Signs Temp Pulse Resp BP Pulse Ox O2 Del Method 01/14/24 11:18 36.5 C 67 18 128/74 98 Room Air 01/14/24 09:00 Room Air 01/14/24 07:17 36.4 C L 70 18 173/76 H 99 Room Air 01/14/24 04:02 36.4 C L 70 16 166/75 H 96 Room Air Laboratory Results Laboratory Results - last 48 hr 01/13/24 01/13/24 01/14/24 05:55 08:22 06:52 WBC 9.49 RBC 2.69 L Hgb 7.9 L Hct 25.1 L MCV 93.3 MCH 29.4 MCHC 31.5 L RDW Std Deviation 53.0 H RDW Coeff of Mario 15.8 H Plt Count 107 L MPV 10.8 Immature Gran % (Auto) 1.2 Neut % (Auto) 80.1 Lymph % (Auto) 9.4 Pitt % (Auto) 8.5 Eos % (Auto) 0.6 Baso % (Auto) 0.2 Neut # (Auto) 7.60 H Lymph # (Auto) 0.89 L Pitt # (Auto) 0.81 H Eos # (Auto) 0.06 Baso # (Auto) 0.02 Immature Gran # (Auto) 0.11 Absolute Nucleated RBC Nucleated RBC % (auto) Polychromasia 1+ Sodium 147 H 146 H Potassium 2.9 L 3.7 D Chloride 110 H 111 H Carbon Dioxide 26 26 Anion Gap 11 9 BUN 38 H 37 H Creatinine 1.22 H 1.30 H 1.27 H Est Cr Clr Drug Dosing 34.4 32.3 33.0 eGFR 44.58 41.31 42.49 BUN/Creatinine Ratio 29.2 H 29.1 H Glucose 163 H 74 Calcium 8.3 L 8.3 L Magnesium 2.0 Total Bilirubin 0.9 AST 14 ALT 23 Alkaline Phosphatase 60 Total Protein 5.5 L Albumin 3.1 L Globulin 2.4 L Albumin/Globulin Ratio 1.3 01/14/24 06:57 WBC 10.53 RBC 3.05 L Hgb 9.1 L Hct 27.6 L MCV 90.5 MCH 29.8 MCHC 33.0 RDW Std Deviation 51.2 H RDW Coeff of Mario 15.9 H Plt Count 126 L MPV 10.3 Immature Gran % (Auto) 4.4 Neut % (Auto) 74.5 Lymph % (Auto) 11.6 Pitt % (Auto) 8.9 Eos % (Auto) 0.4 Baso % (Auto) 0.2 Neut # (Auto) 7.85 H Lymph # (Auto) 1.22 Pitt # (Auto) 0.94 H Eos # (Auto) 0.04 Baso # (Auto) 0.02 Immature Gran # (Auto) 0.46 H Absolute Nucleated RBC 0.03 Nucleated RBC % (auto) 0.3 Polychromasia Sodium Potassium Chloride Carbon Dioxide Anion Gap BUN Creatinine Est Cr Clr Drug Dosing eGFR BUN/Creatinine Ratio Glucose Calcium Magnesium Total Bilirubin AST ALT Alkaline Phosphatase Total Protein Albumin Globulin Albumin/Globulin Ratio Diagnostic Findings Microbiology 01/10/24 18:35 Blood Aerobic Blood Culture - Final Escherichia coli ESBL 01/10/24 18:35 Blood Anaerobic Blood Culture - Final Escherichia coli ESBL 01/10/24 18:19 Blood Aerobic Blood Culture - Final Escherichia coli ESBL 01/10/24 18:19 Blood Anaerobic Blood Culture - Final Escherichia coli ESBL 01/10/24 18:06 Urine,Straight Cath Urine Culture - Final Escherichia coli ESBL Medications Administered Home Medications Medication Instructions Recorded Confirmed Last Taken acetaminophen 325 mg tablet 650 mg PO Q6 PRN Fever Or Pain 09/28/23 01/10/24 Unknown (Tylenol) brimonidine 0.2 %-timolol 0.5 % 1 drp OPB BID 09/28/23 01/10/24 01/10/24 eye drops bumetanide 2 mg tablet 2 mg PO QAM 09/28/23 01/10/24 01/10/24 calcium carbonate 1,000 mg PO Q2H PRN Heartburn 09/28/23 01/10/24 Unknown carboxymethylcellulose sodium 1 % 1 drp OPL Q6H PRN DRYNESS/WATERING 09/28/23 01/10/24 Unknown eye drops (Artificial Tears (carboxymethylcellulose)) famotidine 10 mg tablet 10 mg PO HS 09/28/23 01/10/24 01/09/24 hydralazine 50 mg tablet 75 mg PO TID 09/28/23 01/10/2424 levothyroxine 75 mcg tablet 75 mcg PO QAM 09/28/23 01/10/24 01/10/24 losartan 100 mg tablet 100 mg PO QAM 09/28/23 01/10/24 01/10/24 magnesium oxide 500 mg PO HS 09/28/23 01/10/24 01/09/24 ondansetron HCl 4 mg tablet 4 mg PO Q6H PRN Nausea 09/28/23 01/10/24 Unknown oxycodone 5 mg tablet 5 mg PO Q6H PRN Pain 5-8 09/28/23 01/10/24 01/08/24 oxycodone 5 mg tablet 10 mg PO Q6H PRN Pain 9-10 09/28/23 01/10/24 01/09/24 pantoprazole 40 mg tablet,delayed 40 mg PO DAILY 09/28/23 01/10/24 01/10/24 release ropinirole 2 mg tablet 2 mg PO HS 09/28/23 01/10/24 01/09/24 travoprost 0.004 % eye drops 1 drp OPB HS 09/28/23 01/10/24 01/10/24 amlodipine 10 mg tablet 10 mg PO DAILY #10 tabs 10/03/23 01/10/24 01/10/24 AM carvedilol 6.25 mg tablet 6.25 mg PO BID 10/23/23 01/10/24 01/10/24 venlafaxine 150 mg 150 mg PO QA 10/23/23 01/10/24 01/10/24 capsule,extended release 24 hr apixaban 2.5 mg tablet (Eliquis) 2.5 mg PO BID #0 tabs 10/30/23 01/10/24 01/10/24 cyanocobalamin (vitamin B-12) 500 1,000 mcg (2 x 500 mcg) PO QAM #0 10/30/23 01/10/24 01/10/24 mcg tablet tabs folic acid 1 mg tablet 1 mg PO QAM #0 tabs 10/30/23 01/10/24 01/10/24 loratadine 5 mg-pseudoephedrine ER 1 tab PO Q12H PRN allergy symptoms 10/30/23 01/10/24 Unknown 120 mg tablet,extended #0 tabs release,12hr (Claritin-D 12 Hour) sennosides 8.6 mg tablet (Senokot) 8.6 mg PO QAM #0 tabs 10/30/23 01/10/24 01/10/24 diclofenac sodium 1 % topical gel 2 g topical QID 12/04/23 01/10/24 01/10/24 prednisone 20 mg tablet 20 mg PO QAM 12/04/23 01/10/24 01/10/24 pregabalin 75 mg capsule 75 mg PO TID 12/04/23 01/10/24 01/10/24 venlafaxine 37.5 mg 37.5 mg PO QAM depression 12/04/23 01/10/24 01/10/24 capsule,extended release 24 hr polyethylene glycol 3350 17 gram 17 g PO QAM 01/10/24 01/10/24 Unknown oral powder packet (Miralax) polysaccharide iron complex 150 mg 150 mg PO DAILY 01/10/24 01/10/24 01/10/24 iron capsule (Ferrex) potassium chloride 20 mEq 20 meq PO TID 01/10/24 01/10/24 01/10/24 tablet,extended release(part/cryst) protein supplement 1 ea PO BID 01/10/24 01/10/24 Unknown Active Medications Generic Name Dose Route Start Last Admin Trade Name Marly PRN Reason Stop Dose Admin Acetaminophen 650 mg 01/10/24 20:23 01/12/24 09:39 Acetaminophen 325 Mg Tab PO 02/09/24 20:22 650 mg Q6 PRN Administration Fever Or Pain Amlodipine Besylate 10 mg 01/14/24 09:00 01/14/24 09:18 Amlodipine Besylate 5 Mg Tab PO 02/13/24 08:59 10 mg DAILY AMARI Administration Apixaban 2.5 mg 01/13/24 21:00 01/14/24 09:18 Apixaban 2.5 Mg Tab PO 02/12/24 20:59 2.5 mg BID AMARI Administration Brimonidine Tartrate 1 drops 01/10/24 21:00 01/14/24 10:13 Brimonidine Tartrate 0.2% 5ml OPB 02/09/24 20:59 1 drops BID AMARI Administration Cyanocobalamin 1,000 mcg 01/11/24 09:00 01/14/24 09:17 Cyanocobalamin (B-12) 500 Mcg Tablet PO 02/10/24 08:59 1,000 mcg QAM AMARI Administration Diclofenac Sodium 2 gm 01/10/24 21:00 01/14/24 17:45 Diclofenac Sod 1% Gel 100 Gm Tube EXT 02/09/24 20:59 Not Given QID AMARI Protocol Famotidine 10 mg 01/10/24 21:00 01/13/24 20:41 Famotidine 10 Mg Tablet PO 02/09/24 20:59 10 mg HS AMARI Administration Folic Acid 1 mg 01/11/24 09:00 01/14/24 09:17 Folic Acid 1 Mg Tab PO 02/10/24 08:59 1 mg QAM AMARI Administration Ertapenem 1,000 mg in 10 mls @ 2 mls/min 01/14/24 14:00 01/14/24 14:37 Invanz 1000mg IV 01/25/24 23:59 2 mls/min Q24H AMARI Administration Levothyroxine Sodium 75 mcg 01/11/24 09:00 01/14/24 09:17 Levothyroxine Sodium 75 Mcg Tablet PO 02/10/24 08:59 75 mcg QAM AMARI Administration Pantoprazole Sodium 40 mg 01/11/24 09:00 01/14/24 09:17 Pantoprazole 40 Mg Tab PO 02/10/24 08:59 40 mg DAILY AMARI Administration Prednisone 20 mg 01/13/24 09:00 01/14/24 09:17 Prednisone 20 Mg Tab PO 02/12/24 08:59 20 mg DAILY AMARI Administration Pregabalin 75 mg 01/14/24 14:00 01/14/24 14:38 Pregabalin 75 Mg Cap PO 02/13/24 13:59 75 mg TID AMARI Administration Ropinirole HCl 2 mg 01/10/24 21:00 01/13/24 20:41 Ropinirole Hcl 2 Mg Tablet PO 02/09/24 20:59 2 mg HS AMARI Administration Timolol Maleate 1 drops 01/10/24 21:00 01/14/24 09:20 Timolol Maleate 0.5% Op Soln 5 Ml Btl OPB 02/09/24 20:59 1 drops BID AMARI Administration Travoprost 1 drops 01/10/24 21:00 01/13/24 20:42 Travoprost Z 0.004% Oph Soln 2.5 Ml Btl OPB 02/09/24 20:59 1 drops HS AMARI Administration
[2024-01-14] MEDS: ERTAPENEM 1000MG 1,000 MG/10 ML SYR IV SCH (14:37)
[2024-01-14] MEDS: PREGABALIN 75 MG CAP PO SCH (14:38)
--- NOTE | 2024-01-14 16:42 | Hospitalist Progress Note ---
Date of Service January 14, 2024 Assessment & Plan (1) Sepsis: (2) Chronic kidney disease, stage IV (severe): (3) Thrombocytopenia: (4) Pulmonary hypertension: (5) Rheumatoid arthritis: (6) Essential hypertension: Plan Pt presented to ED with tachycardia, hypotension, fever, leukocytosis, and acutely elevated creatinine. Lactate was 2.3 and procal was 32.4. Troponin was 39.2 with repeat at 28.9. She was given 500ml NS bolus and IV meropenem 500mg. Pt's BP and tachycardia did not improve. Upon admission, she was given 1000mL NS bolus, 50mg 25% albumin IV, and 100mg hydrocortisone IV. Sepsis ID consult appreciated switch to ertapenem made by ID today 1g q24h awaiting final duration recommendations from ID stable for dc back to center care UTI Pt has positive UA and was reporting urinary symptoms at the SNF. Recent hx of ESBL Urine culture again demonstrates ESBL e. coli DENNIS Improving, continue to trend Baseline is 1.2. Monitor Cr CKD-IV Baseline Cr is 1.2. Renal dose of lyrica Thrombocytopenia Platelets up-trending Serial CBC Monitor for signs of clotting Restart renal dose Eliquis Pulmonary hypertension Last echo was in 10/02 which showed EF of 55-60% and severe pulmonary hypertension Continue to hold carvedilol 6.25 mg BID, monitor HR, BP RA Pt was taking daily prednisone 20mg PO for RA symptoms. Restart home dose, d/c stress dose hydrocortisone HTN Patient has history of essential HTN. Will restart home amlodipine in setting of mildly elevated BP Continue to hold losartan, bumetanide, and hydralazine Other chronic conditions: GERD, famotidine 10 mg and pantoprazole 40mg Arthritic pain, hold oxycodone, continue diclofenac gel Depression/anxiety, hold venlafaxine Glaucoma, continue travoprost 0.004% drop, artificial tears Hypothyroidism, Continue levothyroxine 75mcg Dispo: PCU Diet: heart healthy DVT prohyylaxis: SCD Code: DNR Admission and Anticipated Discharge Date Admission Date: January 10, 2024 Supervising Physician Co-Signing Physician Notes I personally examined the patient and verified all sawyer points of history and exam, discussed case, and agree with decision making with Dr Quijano sleeping comfortably awaiting return to SNF, ID input appreciated. vitals noted nad breathing unlabored no accessory muscles good effort skin without pallor Sepsis in the setting of recurrent urinary tract infection concerning for ESBL - ID consult - ertapenem x 10 days. stable for SNF return Rheumatoid arthritis w/ chronic steroid use in the setting of infection - base line prednisone 10mg, monitor DENNIS on CKDIIIb - improved w/ IV hydration. Trend Cr daily. Thrombocytopenia - imrpoving. back on eliquis HTN - BP reasonable for the situation Else see resident documentation as noted. Subjective Patient seen and evaluated at bedside this morning. No acute events overnight. Meropenem switched to Ertapenem by ID today. Awaiting final recommendations for duration. Review of Systems Review of Systems: reviewed, per HPI Physical Exam Physical Exam: Constitutional: ill-appearing, no acute distress HEENT: NCAT, no conjunctival injection CV: regular rhythm, +systolic ejection murmur, extremities well-perfused, no LE edema Resp: CTABL, no wheezes/rales/rhonchi appreciated, no increased work of breathing GI: nondistended MSK: no gross deformities appreciated Skin: warm, dry, no rash appreciated Neuro: alert, oriented, no focal neurologic deficit appreciated Results & Data Results & Data Vital Signs (Past 12 Hours) Vital Signs Temp Pulse Pulse Resp BP Pulse Ox O2 Del Method 01/14/24 15:48 36.6 C 75 18 136/74 97 Room Air 01/14/24 13:06 71 01/14/24 11:18 36.5 C 67 18 128/74 98 Room Air 01/14/24 09:00 Room Air 01/14/24 07:17 36.4 C L 70 18 173/76 H 99 Room Air 01/14/24 05:44 71 Resident Activity Tracking Resident Involvement: Resident Care Provided Care Provided: Adult Hospital Medicine (5) Rheumatoid arthritis Rheumatoid arthritis location: unspecified site Rheumatoid factor presence: unspecified presence Qualified Code(s): M06.9 - Rheumatoid arthritis, unspecified
--- NOTE | 2024-01-14 18:47 | Billing Data ---
Date of Service January 14, 2024 Coding Level of Care Code 70135 SUB INP/OBS CARE
[2024-01-15 07:19] VITALS: RESP 18
[2024-01-15 07:45] LABS: Hematocrit (blood only) 27.7 % (37.0-47.0); Mean Corpuscular Hemoglobin 29.8 pg (25.0-34.0); Mean Corpuscular Hgb Conc 32.5 g/dL (32.0-36.0); Mean Corpuscular Volume 91.7 fL (80.0-100.0); Mean Platelet Volume 10.3 fL (9.4-12.4); Nucleated RBC # (auto) 0.02 K/uL (0.00-0.12); Nucleated RBC % (auto) 0.2 %; Platelet Count 167 K/uL (130-400); RDW Standard Deviation 51.6 fL (36.4-46.3); Red Blood Count 3.02 M/uL (4.20-5.40); White Blood Count 10.78 K/ul (4.8-10.8)
[2024-01-15 07:51] LABS: Calcium 8.1 mg/dl (8.6-10.3); Potassium 3.7 mmol/L (3.5-5.1)
[2024-01-15 07:57] LABS: BUN Creatinine Ratio 28.1 (10-20); Creatinine Clr Calc Pharmacy 34.7 ml/min
[2024-01-15 08:00] LABS: Basophils # (auto) 0.03 K/uL (0.00-0.20); Basophils % (auto) 0.3 %; Eosinophils # (auto) 0.09 K/uL (0.00-0.50); Eosinophils % (auto) 0.8 %; Immature Granulocytes # (auto) 0.68 K/uL (0.01-0.20); Immature Granulocytes % (auto) 6.3 %; Lymphocytes # (auto) 1.36 K/uL (1.20-3.40); Lymphocytes % (auto) 12.6 %; Monocytes # (auto) 0.75 K/uL (0.11-0.59); Neutrophils # (auto) 7.87 K/uL (1.40-6.50); Polychromasia 1+
--- NOTE | 2024-01-15 08:53 | CT Scan Report ---
CT knee RT wo con CLINICAL HISTORY: Eval prosthesis for colonization COMPARISON STUDY: Right knee MRI September 30, 2008. Right knee radiographs October 03, 2023. TECHNIQUE: Images of the right knee were obtained without IV contrast. Sagittal and coronal reconstru ctions were viewed. Automated exposure control was utilized for the study. A dose lowering technique was utilized adhering to the principles of ALARA. FINDINGS: Please note that the left knee CT will be reported separately. Alignment of the right knee arthroplasty is anatomic. There is a longstem tibial component. This exam is compromised by streak ar tifact from the surgical hardware. However, no periprosthetic fracture or lucency is identified. Ther e is no right knee joint effusion. No fluid collections are identified. There is no soft tissue gas. No inflammation is identified by CT. Extensive vascular calcification is incidentally noted. No mass adjacent to the right knee is identified. IMPRESSION: 1. Status post total right knee arthroplasty. Exam compromised by streak artifact from the hardware. No periprosthetic fracture or lucency identified. 2. No right knee joint effusion. No significant inflammation identified by CT. ACT 112: Negative or not required by law. Electronically signed by: Shivam Ward M.D. 01/15/2024 8:52 AM
--- NOTE | 2024-01-15 09:49 | CT Scan Report ---
CT knee LT wo con HISTORY: 83 years-old Female Eval prosthesis for colonization Chronic left knee pain with total join t arthroplasty. COMPARISON: Right knee CT of same day, left knee radiographs 10/03/2023. TECHNIQUE: Multiple axial CT images of the left knee were obtained without IV contrast. A dose loweri ng technique was used consistent with the principals of DARNELL. FINDINGS: Total joint arthroplasty with patellar resurfacing. The exam is limited secondary to motion artifact and also, streak artifact from the hardware. Demineralized appearance of the bones. There is a chroni c intra-articular comminuted mid patellar fracture, which demonstrates incomplete bony healing and no significant displacement. There is approximately 50% osseous bridging of the fractures. Chronic bony defect along the volar aspect of the patella. No intra-articular loose body. The distal femur, proxi mal tibia and fibula appear intact. No evidence of hardware loosening. No large joint effusion or sig nificant inflammatory changes. Diffuse muscle atrophy with arterial calcifications. IMPRESSION: 1. Total joint arthroplasty and patellar resurfacing. No evidence of hardware complication. 2. There is a chronic-appearing comminuted intra-articular patellar fracture demonstrating incomplete bony healing and no significant bony displacement. 3. No large joint effusion or acute inflammatory changes. ACT 112: Negative or not required by law. The above report was generated using voice recognition software. It may contain grammatical, syntax o r spelling errors. Dictated: 01/15/2024 9:02 AM Transcribed: 01/15/2024 9:19 AM Hans [id number] [email or web address] Electronically signed by: Nic Winters M.D. 01/15/2024 9:47 AM
[2024-01-15 11:20] VITALS: PULSE 69; TEMP 97.7; O2SAT 99
--- NOTE | 2024-01-15 11:45 | Discharge Summary ---
Date of Service January 15, 2024 Admission HPI Per Admitting Provider Pt is an 83 yo female with PMH of RA, CKD, DVT, NSTEMI, DVT, recent hx of strep G soft tissue infection and ESBL e.coli UTI. She presented today to ED from her SNF with increased lethargy and return of urinary symptoms. Pt had recently completed course of Doxycycline and was finishing a course of ciprofloxacin. Currently, pt is lethargic, but arousable and will answer questions with verbal stimuli. She is denying dysuria, increased urinary frequency or pelvic pain. She endorses posterior thigh and bilateral foot pain. Pt denies chest pain, SOB, cough, congestion, fever, chills, abdominal pain, nausea, vomiting or diarrhea. She endorses bilateral foot numbness and burning due to long standing neuropathy. Pt was found to be septic with fever, hypotension, tachycardia and CR of 2.14 in ED, she was given 500mL NS bolus, meropenem 500mg IV and Acetaminophen 1g IV. Pt's BP continued to decrease. Admission Exam Per Admitting Provider Constitutional: + obese, cooperative and + lethargic ENMT: external ear and nose normal, oropharynx normal Neck: normal visual inspection Respiratory: normal respiratory effort; no respiratory distress Cardiovascular: Rate/Rhythm: regular rate, regular rhythm and + tachycardic Heart Sounds: no gallop and no murmur Extremities: + edema (Bilateral ankle and feet is 2+) Gastrointestinal (Abdomen): Inspection/Auscultation: abdomen normal to inspection and normal bowel sounds Percussion/Palpation: abdomen soft; abdomen nontender Musculoskeletal: Extremities: + abnormal strength Skin: no rashes, warm and dry Psychiatric: Orientation: alert, oriented to person and oriented to time Principal Diagnosis ESBL Bacteremia Discharge Exam Constitutional: ill-appearing, no acute distress HEENT: NCAT, no conjunctival injection CV: regular rhythm, +systolic ejection murmur, extremities well-perfused, no LE edema Resp: CTABL, no wheezes/rales/rhonchi appreciated, no increased work of breathing GI: nondistended MSK: no gross deformities appreciated Skin: warm, dry, no rash appreciated Neuro: alert, oriented, no focal neurologic deficit appreciated Discharge Data Allergies Allergy/AdvReac Type Severity Reaction Status Date / Time aspirin Allergy Severe ANAPHYLAXIS Verified 01/10/24 18:45 duloxetine [From Cymbalta] Allergy Intermediate Rash Verified 01/10/24 18:45 NSAIDS (Non-Steroidal Allergy Unknown Verified 01/10/24 18:45 Anti-Inflamma lisinopril AdvReac Intermediate Cough Verified 01/10/24 18:45 Consultations 01/10/24 19:33 ED Decision to Admit Stat 01/11/24 10:09 Consult Infectious Diseases Routine Ordered Studies 01/10/24 17:56 CT abd pelvis wo con Stat 01/10/24 17:57 CT head/brain wo con Stat 01/15/24 06:58 CT knee LT wo con Urgent CT knee RT wo con Urgent Hospital Course (1) Sepsis: (2) Chronic kidney disease, stage IV (severe): (3) Thrombocytopenia: (4) Pulmonary hypertension: (5) Rheumatoid arthritis: (6) Essential hypertension: Plan Pt presented to ED with tachycardia, hypotension, fever, leukocytosis, and acutely elevated creatinine. Lactate was 2.3 and procal was 32.4. Troponin was 39.2 with repeat at 28.9. She was given 500ml NS bolus and IV meropenem 500mg. Pt's BP and tachycardia did not improve. Upon admission, she was given 1000mL NS bolus, 50mg 25% albumin IV, and 100mg hydrocortisone IV. Sepsis - ESBL Bacteremia ID consult appreciated Completed 4 days of meropenem switch to ertapenem made by ID 1g q24h Today is day 08/19 - patient received dose prior to discharge, will need 4 days of ertapenem to complete total 10 day course of abx. Last day of abx therapy 01/19/24. stable for dc back to center care UTI Pt has positive UA and was reporting urinary symptoms at the SNF. Recent hx of ESBL Urine culture again demonstrates ESBL e. coli DENNIS Trending back to baseline Baseline is 1.2. Monitor Cr CKD-IV Baseline Cr is 1.2. Thrombocytopenia Platelets up-trending Serial CBC Monitor for signs of clotting Restart renal dose Eliquis Pulmonary hypertension Last echo was in 10/02 which showed EF of 55-60% and severe pulmonary hypertension Continue to hold carvedilol 6.25 mg BID, monitor HR, BP RA Pt was taking daily prednisone 20mg PO for RA symptoms. Restart home dose Received one day of stress dose hydrocortisone HTN Patient has history of essential HTN. Will restart home amlodipine in setting of mildly elevated BP Continue to hold losartan, bumetanide, and hydralazine Would restart remaining anti-hypertensives in step-hill fashion, monitor BP Other chronic conditions: GERD, famotidine 10 mg and pantoprazole 40mg Arthritic pain, hold oxycodone, continue diclofenac gel Depression/anxiety, hold venlafaxine Glaucoma, continue travoprost 0.004% drop, artificial tears Hypothyroidism, Continue levothyroxine 75mcg Total Time Total Time Spent Total Time Spent (In Minutes): <30 Discharge Plan Discharge Items Patient Disposition: Transfer [facility] Reason For Visit: SEPSIS Discharge Diagnosis: ESBL Bacteremia Activity: Resume your previous activity Non-emergency contact: Primary Care Provider Call non-emergency contact if: you have any medication questions, your symptoms worsen and you have a fever Follow-up/Referrals: [facility] [Primary Care Provider] - Diet: Heart Healthy Addtl Attending Provider Instructions: You were admitted to the hospital for sepsis. You were found to have bacteria growing in your blood. You were treated with antibiotics. In consultation with infectious disease, it was determined that you should complete a total course of 10 days of antibiotics. You will receive a total of 4 additional doses of antibiotics when you return to [facility]. A discharge summary will be sent to your primary care physician to ensure continuity of care. Please bring this discharge summary with you to your next office appointment so that your provider can review it at that time. Follow-up appointments: Make a follow-up appointment with your PCP within the next week. It is very important that you follow up with them shortly after discharge from the hospital. Keep all your follow-up appointments as already scheduled. If you cannot make an appointment, notify your provider. Medications: Your medication list has been reviewed and reconciled upon discharge to ensure accuracy and continuity of care. An updated list of all your medications is included with your hospital discharge paperwork. Please review this list closely, and make note of any changes. You will continue to receive ertapenem 1g daily for an additional 4 days after you return to [facility] We have restarted amlodipine for your high blood pressure. You should consult with the physician on staff at [facility] about restarting your other blood pressure medications. Take your medications as instructed; do not skip a dose of your medicines. Make sure all of your doctors know every medicine you are taking (including gdwb-wbb-hlgojgj medicines, vitamins, and supplements). Call your primary care provider before taking any new medicines (including ludj-thd-jamabxr medicines, vitamins, and supplements), because some of these may interact with your current medications, or may make your symptoms worse. Tell your primary care provider if you cannot afford your medications. CONTACT YOUR PRIMARY CARE PROVIDER if you experience any of the following: Return of urinary symptoms Fever Difficulty following your treatment plan, or difficulty taking medications CALL 911 OR GO TO THE EMERGENCY DEPARTMENT if you experience any of the following: Sudden, severe abdominal pain or nausea/vomiting Severe chest pain, or chest pain that radiates (moves) to your jaw or arm Sudden, severe shortness of breath or difficulty breathing Thank you for allowing us to participate in your care. Pending Studies at Discharge: No Stand-Alone Forms: [facility] Skilled Items Patient informed of condition?: Yes DNR: Yes Discharge Level of Care: Skilled Communicable Disease: No Discharge Prognosis: Stable Lines: None Urinary Catheter: No Medications and DC Order Prescriptions: New ertapenem 1 gram recon soln 1 g IV DAILY Qty: 4 0RF Continued carvedilol 6.25 mg tablet 6.25 mg PO BID venlafaxine 150 mg Capsule,Extended Release 24hr 150 mg PO QAM Eliquis 2.5 mg Tablet 2.5 mg PO BID Qty: 0 0RF sennosides [Senokot] 8.6 mg Tablet 8.6 mg PO QAM Qty: 0 0RF cyanocobalamin (vitamin B-12) 500 mcg Tablet 1,000 mcg PO QAM Qty: 0 0RF folic acid 1 mg Tablet 1 mg PO QAM Qty: 0 0RF Claritin-D 12 Hour 5-120 mg Tablet Extended Release 12 Hr 1 tab PO Q12H PRN (Reason: allergy symptoms) Qty: 0 0RF venlafaxine 37.5 mg Capsule,Extended Release 24hr 37.5 mg PO QAM prednisone 20 mg Tablet 20 mg PO QAM Rx Instructions: for RA pregabalin 75 mg Capsule 75 mg PO TID Rx Instructions: for neuralgia diclofenac sodium 1 % Gel 2 g TOPICAL QID Rx Instructions: apply to L hip & L knee acetaminophen [Tylenol] 325 mg Tablet 650 mg PO Q6 MDD 3 grams PRN (Reason: Fever Or Pain) famotidine 10 mg Tablet 10 mg PO HS ondansetron HCl 4 mg Tablet 4 mg PO Q6H PRN (Reason: Nausea) travoprost 0.004 % drops 1 drp OPB HS Rx Instructions: 1 drop into each eye at bedtime levothyroxine 75 mcg tablet 75 mcg PO QAM ropinirole 2 mg tablet 2 mg PO HS pantoprazole 40 mg tablet,delayed release (DR/EC) 40 mg PO DAILY magnesium oxide 500 mg magnesium Tablet 500 mg PO HS calcium carbonate 500 mg calcium (1,250 mg) Tablet,Chewable 1,000 mg PO Q2H PRN (Reason: Heartburn) oxycodone 5 mg tablet 5 mg PO Q6H PRN (Reason: Pain 5-8) oxycodone 5 mg tablet 10 mg PO Q6H PRN (Reason: Pain 9-10) brimonidine-timolol 0.2-0.5 % drops 1 drp OPB BID Rx Instructions: DAY AND EVENING SHIFT Artificial Tears (cmc) 1 % Drops 1 drp OPL Q6H PRN (Reason: DRYNESS/WATERING) amlodipine 10 mg tablet 10 mg PO DAILY Qty: 10 0RF protein supplement Liquid 1 ea PO BID Rx Instructions: 30 ML EACH polysaccharide iron complex [Ferrex 150] 150 mg iron Capsule 150 mg PO DAILY polyethylene glycol 3350 [Miralax] 17 gram powder in packet 17 g PO QAM potassium chloride 20 mEq tablet,ER particles/crystals 20 meq PO TID Held bumetanide 2 mg tablet 2 mg PO QAM Hold Instructions: Resume on 01/21/24. Consult with physician before restarti ng hydralazine 50 mg Tablet 75 mg PO TID Hold Instructions: Resume on 01/21/24. Consult with physician before restarting losartan 100 mg tablet 100 mg PO QAM Hold Instructions: Resume on 01/21/24. Consult with physician before restarting Discharge Orders: Discharge Order (Routine); Ordered 01/15/24 Ordered By: Jayesh Arreguin/Other Patient Handouts: Sepsis Admission Data Admit Date/Time: 01/10/24 20:21 Attending Provider: Austin Celestin Admit Provider: Stephanie Maldonado Primary Care Provider: [facility] Other Providers: Tobin Horn; Latrice Zimmer; Juliana Fitzgerald; Carlee James; Mariely Moscoso; Breanna Walsh; Angie Naik Other Interventions: Discharge Summary Assessment (RN) Last Done: 01/15/24 13:05 Supervising Physician Co-Signing Physician Notes I personally examined the patient and verified all sawyer points of history and exam, discussed case, and agree with decision making with Dr Quijano sleeping comfortably awaiting return to SNF, ID input appreciated. vitals noted nad breathing unlabored no accessory muscles good effort skin without pallor Sepsis in the setting of recurrent urinary tract infection concerning for ESBL - ID consult - ertapenem x 10 days. stable for SNF return Rheumatoid arthritis w/ chronic steroid use in the setting of infection - baseline prednisone 10mg, monitor DENNIS on CKDIIIb - improved w/ IV hydration. Trend Cr daily. Thrombocytopenia - imrpoving. back on eliquis HTN - BP reasonable for the situation Else see resident documentation as noted. Resident Activity Tracking Resident Involvement: Resident Care Provided Care Provided: Adult Hospital Medicine
[2024-01-15 13:09] VITALS: BP 138/78
--- NOTE | 2024-01-15 17:06 | Billing Data ---
Date of Service January 15, 2024 Coding Level of Care Code 38984 IN/OBS DISCH 30 MIN/LESS
== END 2024-01-15 13:55 | DRG 872 ==
LOC: ED 17:48 → SUATTDRO 20:21 → 2S 20:21

== ENCOUNTER 2024-02-12 07:56 | Inpatient (IN) ==
--- NOTE | 2024-02-12 08:10 | Emergency Department Note ---
Impression & Plan Sepsis, ESBL (extended spectrum beta-lactamase) producing bacteria infection, Bilateral leg edema, Rheumatoid arthritis, Steroid dependence, Aspiration pneumonia, Leukocytosis ED Provider Note NAME: LADAN RUELAS AGE: 83 SEX: F : 1940 ARRIVES VIA: Ambulance INFORMANT: Patient ED PROVIDER(S): Ant Pryor MD CHIEF COMPLAINT: Weakness, referred. PLAN: Disposition: Admit MEDICAL DECISION MAKING: The patient is an 83-year-old woman with past medical history of RA with steroid dependence, CKD, DVT, CAD, history of strep G soft tissue infection, ESBL E. coli UTI, pulmonary hypertension, hypertension, hypothyroidism recent admission this facility from 01/09-01/14 for sepsis/ESBL bacteremia related to ESBL E. coli urinary infection where she was treated with 10-day course of carbapenems with 4 days of meropenem and then switched to ertapenem completing antibiotics on 01/18 and taper of stress dose steroids who presents to the emergency department from her snf facility at [facility] for ongoing generalized weakness with the patient reports no improvement in her symptoms since her discharge. The patient reports that her providers at [facility] had been wanting her to return back to the hospital however she reports she was resistant to this as she did not want to return. She describes being referred to infectious disease but is unclear of the details. Per review of the patient's lab results the patient had [facility] a leukocytosis of 21.9K with neutrophilia and left shift on 01/31.The patient had repeat blood cultures at the same time demonstrating continuation of her ESBL infection. And continuation of her urinary infection. Patient reports that she had completed another course of antibiotics and reports she is not currently on antibiotics at this time. On evaluation the patient is fatigued/acute on chronically ill appearing but no acute distress, afebrile with blood pressure 160/80s and vital signs otherwise stable. She appears hypervolemic. She has 1+ bilateral lower extremity pitting edema. She exhibits generalized weakness in all extremities and complains of bilateral shoulder pain in the setting of her history of RA. She has mild suprapubic discomfort without discrete tenderness. WBC 17.2 K with neutrophilia and left shift. H/H 8.4/26.3 similar to improved from recent range of values. Platelets within normal limits. Creatinine 1.6, similar to recent range values. Glucose is 330 with chemistry without metabolic acidosis. Lactic acid is 3.3. LFTs unremarkable. UA from straight cath with WBCs but no bacteria at this time. Urine culture is pending. UA is nitrite negative. Respiratory BioFire was negative. CT of the head describes age-indeterminate 1 cm right cerebellar infarct with possible corresponding old infarct MRI on January 22, 2024. CT of the abdomen pelvis was performed and was negative for acute intra-abdominal process. Moderate amount of stool within the colon and rectum is described. Lower lungs are described and additionally seen on CT of the chest where there is evidence of aspiration pneumonitis with mucous plugging. Given the patient's persistence of symptoms with persistent bacteremia she does agree plan for admission for further management. Empiric treatment initiated with meropenem. MRSA swab is pending. Case was d/[place] Dr[place] [facility] [place] who will evaluate the patient for admission. Further management per admitting team. Triage Nursing notes reviewed and agree them. Prior/external medical records reviewed Vital Signs: reviewed Differential diagnosis: Infection, dehydration, metabolic abnormality, hypo/hyperglycemia, electrolyte disturbance, anemia, hypoxia, cardiac sources, intracerebral event, toxicologic, neurologic, as well as other pathologies. ER treatment provided: See below. Diagnostics interpreted by me: ECG: Normal sinus rhythm, 82 bpm, no ectopy, no overt ST elevation or depression, QTc 415, QRS 98. Cardiac Monitoring: An order for continuous cardiac monitoring was placed and demonstrated Normal sinus rhythm, 82 bpm, no ectopy. Laboratory studies: See below Imaging studies: See below Consultation(s): Case was d/w Dr. Bur[place] [facility] [place] who will evaluate the patient for admission. HPI: The patient is an 83-year-old woman with past medical history of RA with steroid dependence, CKD, DVT, CAD, history of strep G soft tissue infection, ESBL E. coli UTI, pulmonary hypertension, hypertension, hypothyroidism recent admission this facility from 01/09-01/14 for sepsis/ESBL bacteremia related to ESBL E. coli urinary infection where she was treated with 10-day course of carbapenems with 4 days of meropenem and then switched to ertapenem completing antibiotics on 01/18 and taper of stress dose steroids who presents to the emergency department from her snf facility at [facility] for ongoing generalized weakness with the patient reports no improvement in her symptoms since her discharge. The patient reports that her providers at [facility] had been wanting her to return back to the hospital however she reports she was resistant to this as she did not want to return. She describes being referred to infectious disease but is unclear of the details. Per review of the patient's lab results the patient had [facility] a leukocytosis of 21.9K with neutrophilia and left shift on 01/31.The patient had repeat blood cultures at the same time demonstrating continuation of her ESBL infection. And continuation of her urinary infection. Patient reports that she had completed another course of antibiotics and reports she is not currently on antibiotics at this time. ROS: See above HPI for pertinent positives & negatives. A total of 10 systems reviewed and were otherwise negative. VITALS:See Below PHYSICAL EXAMINATION: GENERAL: Awake, alert, fatigued/acute on chronically ill-appearing in no acute distress. HENT: Normocephalic, atraumatic. Oropharynx unremarkable. EYES: Normal conjunctiva. Sclera non-icteric. NECK: Supple. No nuchal rigidity. FROM. No JVD. RESPIRATORY: Clear to auscultation. CARDIAC: Regular rate, normal rhythm. Extremities warm and well perfused. Pulses equal. ABDOMEN: Soft, non-distended. Mild suprapubic discomfort without discrete tenderness to palpation. No rebound or guarding. No masses. MUSCULOSKELETAL: Chest examination reveals no tenderness. The back is symmetrical on inspection without obvious abnormality. There is no CVA tenderness to palpation. No joint edema. LOWER EXTREMITIES: Calves are equal size bilaterally and non-tender. 1+ BLE edema. No discoloration. NEURO: Generalized weakness without focal sensory or motor deficits noted. SKIN: No rash or jaundice noted. Ant Pryor MD Past Med/Surg History Problem List (Updated 02/12/24 @ 20:10 by Ant Pryor MD) Goals of care, counseling/discussion Confusion Metabolic alkalosis (HFpEF) heart failure with preserved ejection fraction Wound of foot Left shoulder pain Hypokalemia Leukocytosis (Acute) Aspiration pneumonia (Acute) Sepsis (Acute) Pulmonary hypertension ESBL (extended spectrum beta-lactamase) producing bacteria infection (Acute) Pulmonary HTN Acute heart failure with preserved ejection fraction (HFpEF) Chronic kidney disease, stage IV (severe) Steroid dependence (Acute) Rheumatoid arthritis (Acute) FOLLOWS DR. TREVINO Essential hypertension Lower extremity ulceration Degenerative spondylolisthesis Scoliosis of lumbar region due to degenerative disease of spine in adult Painful orthopaedic hardware Occult blood positive stool Generalized weakness (Acute) Bilateral edema of lower extremity (Acute) Greater trochanteric bursitis of left hip Bilateral leg edema Lumbar spinal stenosis Severe at L2-S1 Acute kidney injury superimposed on CKD HTN (hypertension) (Chronic) Spinal stenosis, lumbar region with neurogenic claudication Hypothyroidism Depression Neuropathy (Chronic) FEET Restless leg syndrome (Chronic) Glaucoma (Chronic) Medical History Thrombocytopenia Sepsis Gram-negative bacteremia Streptococcal bacteremia Community acquired pneumonia Metabolic encephalopathy DVT (deep venous thrombosis) Non-ST elevation AR (NSTEMI) prison resident resident of [facility] Dysphagia Gait abnormality Low back pain Personal history of venous thrombosis and embolism Other intestinal Escherichia coli infections Cognitive communication deficit Adult failure to thrive Herniated lumbar disc without myelopathy Left central disc herniation at L5-S1 Lumbar radiculopathy High cholesterol Anxiety Hypertension Surgical History History of total bilateral knee replacement (TKR) History of carpal tunnel release RIGHT HAND Hx of arthroscopy RIGHT KNEE (MENISCUS) Hx of tonsillectomy Hx of hysterectomy Hx laparoscopic cholecystectomy Family History Mother Family history of reaction to anesthesia SLOW TO AWAKEN Social History Smoking Status: Never smoker Second Hand Exposure: No; Do You Dip or Chew Tobacco: No; Hx Alcohol Use: Yes Alcohol type: hard liquor Hx Substance Use: No Preferred Language: Amharic Communication Ability: Effective Communication Ability Comment: Pt disoriented, but able to communicate needs Visual Impairment: No Limitations Cork Insulator Required: No Beliefs That Will Affect Care: None marital status: Single Current Living Situation: Group Home Current Living Situation Comment: [facility] How many Children do You have: 0 Feels Safe at Home: Yes Safety Concerns: Feels Safe At This Time Assistive Devices: Glasses Allergies Allergies Allergy/AdvReac Type Severity Reaction Status Date / Time aspirin Allergy Severe ANAPHYLAXIS Verified 01/10/24 18:45 duloxetine [From Cymbalta] Allergy Intermediate Rash Verified 01/10/24 18:45 NSAIDS (Non-Steroidal Allergy Unknown Verified 01/10/24 18:45 Anti-Inflamma lisinopril AdvReac Intermediate Cough Verified 01/10/24 18:45 Home Meds Home Medications Medication Instructions Recorded Confirmed acetaminophen 325 mg tablet 650 mg PO Q6 PRN Fever Or Pain 09/28/23 02/12/24 (Tylenol) brimonidine 0.2 %-timolol 0.5 % 1 drp OPB BID 09/28/23 02/12/24 eye drops bumetanide 2 mg tablet 2 mg PO QAM 09/28/23 02/12/24 calcium carbonate 1,000 mg PO Q2H PRN Heartburn 09/28/23 02/12/24 carboxymethylcellulose sodium 1 % 1 drp OPL Q6H PRN DRYNESS/WATERING 09/28/23 02/12/24 eye drops (Artificial Tears (carboxymethylcellulose)) famotidine 10 mg tablet 10 mg PO HS 09/28/23 02/12/24 levothyroxine 75 mcg tablet 75 mcg PO QAM 09/28/23 02/12/24 magnesium oxide 500 mg PO HS 09/28/23 02/12/24 ondansetron HCl 4 mg tablet 4 mg PO Q6H PRN Nausea 09/28/23 02/12/24 pantoprazole 40 mg tablet,delayed 40 mg PO DAILY 09/28/23 02/12/24 release ropinirole 2 mg tablet 2 mg PO HS 09/28/23 02/12/24 carvedilol 6.25 mg tablet 6.25 mg PO BID 10/23/23 02/12/24 venlafaxine 150 mg 150 mg PO UD 10/23/23 02/12/24 capsule,extended release 24 hr diclofenac sodium 1 % topical gel 0 g topical QID 12/04/23 02/12/24 prednisone 20 mg tablet 20 mg PO QAM 12/04/23 02/12/24 pregabalin 75 mg capsule 75 mg PO TID 12/04/23 02/12/24 venlafaxine 37.5 mg 37.5 mg PO UD depression 12/04/23 02/12/24 capsule,extended release 24 hr polyethylene glycol 3350 17 gram 17 g PO QAM 01/10/24 02/12/24 oral powder packet (Miralax) polysaccharide iron complex 150 mg 150 mg PO DAILY 01/10/24 02/12/24 iron capsule (Ferrex) potassium chloride 20 mEq 20 meq PO TID 01/10/24 02/12/24 tablet,extended release(part/cryst) ascorbic acid (vitamin C) 1,000 mg 1 g PO QAM 02/12/24 02/12/24 tablet (Vitamin C) bisacodyl 10 mg rectal suppository 10 mg OK DAILY PRN Constipation 02/12/24 02/12/24 (Dulcolax (bisacodyl)) cyanocobalamin (vitamin B-12) 1,000 mcg PO QAM 02/12/24 02/12/24 1,000 mcg tablet (Vitamin B-12) latanoprost 0.005 % eye drops 1 drp OPB HS 02/12/24 02/12/24 lidocaine HCl 10 mg/mL (1 %) See Rx Instructions .Route .COMPLEX 02/12/24 02/12/24 injection solution magnesium hydroxide 400 mg/5 mL See Rx Instructions .Route .COMPLEX 02/12/24 02/12/24 oral suspension (Milk of Magnesia) methenamine hippurate 1 gram tablet 1 g PO BID 02/12/24 02/12/24 methylprednisolone sod suc(PF) 125 62.5 mg IM QAM 02/12/24 02/12/24 mg/2 mL solution for injection (Solu-Medrol (PF)) morphine concentrate 100 mg/5 mL 10 mg PO Q1H PRN Pain 02/12/24 02/12/24 (20 mg/mL) oral solution nystatin 100,000 unit/gram topical 1 applic topical BID 02/12/24 02/12/24 powder promethazine 25 mg/mL injection 25 mg IM Q6H PRN Nausea And 02/12/24 02/12/24 solution Vomiting sodium phosphates 19 gram-7 118 ml OK DAILY PRN Constipation 02/12/24 02/12/24 gram/118 mL enema (Fleet Enema) Previous Rx's Medication Instructions Recorded amlodipine 10 mg tablet 10 mg PO DAILY #10 tabs 10/03/23 apixaban 2.5 mg tablet (Eliquis) 2.5 mg PO BID #0 tabs 10/30/23 folic acid 1 mg tablet 1 mg PO QAM #0 tabs 10/30/23 loratadine 5 mg-pseudoephedrine ER 1 tab PO Q12H PRN allergy symptoms 10/30/23 120 mg tablet,extended #0 tabs release,12hr (Claritin-D 12 Hour) sennosides 8.6 mg tablet (Senokot) 8.6 mg PO QAM #0 tabs 10/30/23 ertapenem 1 gram solution for 1 g IV DAILY #4 ea 01/15/24 injection Results & Data (ED) Vital Signs Vital Signs - 24 hr 02/12/24 07:46 02/12/24 07:47 02/12/24 07:47 Temperature 36.6 C Temperature Source Oral Pulse Rate 82 Pulse Rate [Apical] Respiratory Rate 18 18 Blood Pressure 161/82 H Blood Pressure [Left Arm] Blood Pressure Mean 108 Blood Pressure Mean [Left Arm] Pulse Oximetry 98 Oxygen Delivery Method Room Air Sepsis Recent Fever Within 48 Hours No Sepsis New/Unexplained Change in Mental Status N/A Sepsis Action Taken by Nursing No Action Required 02/12/24 08:17 02/12/24 08:21 02/12/24 09:39 Temperature Temperature Source Pulse Rate 89 Pulse Rate [Apical] 85 Respiratory Rate 18 Blood Pressure Blood Pressure [Left Arm] 157/76 H Blood Pressure Mean Blood Pressure Mean [Left Arm] 103 Pulse Oximetry 96 93 Oxygen Delivery Method Room Air Room Air Sepsis Recent Fever Within 48 Hours Sepsis New/Unexplained Change in Mental Status Sepsis Action Taken by Nursing 02/12/24 12:00 02/12/24 12:16 Temperature Temperature Source Pulse Rate 89 Pulse Rate [Apical] 87 Respiratory Rate 18 Blood Pressure Blood Pressure [Left Arm] 177/89 H Blood Pressure Mean Blood Pressure Mean [Left Arm] 118 Pulse Oximetry 95 Oxygen Delivery Method Room Air Sepsis Recent Fever Within 48 Hours Sepsis New/Unexplained Change in Mental Status Sepsis Action Taken by Nursing Laboratory Data 02/12/24 08:00 02/12/24 08:00 Lab Results 02/12/24 02/12/24 02/12/24 Range/Units 08:00 08:20 10:36 WBC 17.21 H (4.8-10.8) K/ul RBC 2.77 L (4.20-5.40) M/uL Hgb 8.4 L (12.0-16.0) g/dl POC Hgb 8.8 L (12.0-16.0) g/dl Hct 26.3 L (37.0-47.0) % POC Hct 26 L (37-47) % MCV 94.9 (80.0-100.0) fL MCH 30.3 (25.0-34.0) pg MCHC 31.9 L (32.0-36.0) g/dL RDW Std Deviation 63.3 H (36.4-46.3) fL RDW Coeff of Mario 18.2 H (11.5-14.5) % Plt Count 233 (130-400) K/uL MPV 10.9 (9.4-12.4) fL Immature Gran % (Auto) 2.8 % Neut % (Auto) 86.4 % Lymph % (Auto) 3.6 % [place] % (Auto) 7.0 % Eos % (Auto) 0.1 % Baso % (Auto) 0.1 % Neut # (Auto) 14.86 H (1.40-6.50) K/uL Lymph # (Auto) 0.62 L (1.20-3.40) K/uL [place] # (Auto) 1.21 H (0.11-0.59) K/uL Eos # (Auto) 0.01 (0.00-0.50) K/uL Baso # (Auto) 0.02 (0.00-0.20) K/uL Immature Gran # (Auto) 0.49 H (0.01-0.20) K/uL Absolute Nucleated RBC 0.08 (0.00-0.12) K/uL Nucleated RBC % (auto) 0.5 % PT 10.2 (9.0-12.0) Seconds INR 0.9 (0.9-1.1) VBG pH (7.36-7.41) VBG pCO2 (38-50) mmHg VBG pO2 mmHg VBG HCO3 mmol/L VBG O2 Saturation % VBG Base Excess mEq/L POC Sodium 140 (135-144) mmol/L Sodium 143 (136-145) mmol/L POC Potassium 3.6 (3.3-5.0) mmol/L Potassium 3.7 (3.5-5.1) mmol/L POC Chloride 102 (101-112) mmol/L Chloride 102 (98-107) mmol/L Carbon Dioxide 30 (21-32) mmol/L POC Total CO2 29 (24-31) mmol/L Anion Gap 11 (3-11) POC Anion Gap 13.0 L (16-25) mmol/L POC BUN 57 H (7-18) mg/dl BUN 60 H (6-23) mg/dl Creatinine 1.62 H (0.6-1.2) mg/dl POC Creatinine 1.7 H (0.6-1.3) mg/dl Est Cr Clr Drug Dosing 25.8 ml/min eGFR 31.72 BUN/Creatinine Ratio 37.0 H (10-20) Glucose 332 H* (70-99(Fasting)) mg/dl POC Glucose (other) 332 H (70-99) mg/dl Osmolality 328 H (280-300) mOsm/kg Lactate (0.4-2.0) mmol/L Calcium 8.2 L (8.6-10.3) mg/dl POC Ioniz Calcium [place] 1.01 L (1.12-1.32) mmol/l Magnesium 3.2 H (1.7-2.4) mg/dl Total Bilirubin 0.7 (0.2-1.0) mg/dl AST 12 L (13-39) U/L ALT 18 (7-52) U/L Alkaline Phosphatase 75 (34-104) U/L Total Creatine Kinase (26-192) U/L Total Protein 5.7 L (6.0-8.3) gm/dl Albumin 3.2 L (3.4-5.0) gm/dl Globulin 2.5 (2.5-4.0) gm/dl Albumin/Globulin Ratio 1.3 (0.9-2) Procalcitonin 0.15 (0-0.5) ng/ml TSH 0.029 L (0.300-4.500) uIu/ml Free T4 1.13 (0.61-1.60) ng/dl Random Cortisol 4.95 mcg/dl Urine Color Yellow Urine Appearance Clear (Clear) Urine pH 7.0 (4.5-7.5) Ur Specific [place] 1.016 (1.000-1.030) Urine Protein Trace H (Negative) Urine Glucose (UA) 3+ H (Negative) Urine Ketones Negative (Negative) Urine Blood Negative (Negative) Urine Nitrite Negative (Negative) Urine Bilirubin Negative (Negative) Urine Urobilinogen Negative (Negative) Ur Leukocyte Esterase 1+ H (Negative) Urine WBC (Auto) 11-20 H (0-5) /hpf Urine RBC (Auto) 6-10 H (0-2) /hpf U Hyaline Cast (Auto) 0-2 (0-2) /lpf U Epithel Cells (Auto) 0-2 (0-2) /hpf Urine Bacteria (Auto) None Seen (None Seen) Urine Yeast Present A (None Prsent) Nasal Screen MRSA (PCR) Negative (Negative) Adenovirus (PCR) Not Detected (NotDetected) B. pertussis DNA (PCR) Not Detected (NotDetected) B.parapertussis DNA PCR Not Detected (NotDetected) C. pneumoniae DNA (PCR) Not Detected (NotDetected) Coronavirus OC43 (PCR) Not Detected (NotDetected) Coronavirus HKU1 (PCR) Not Detected (NotDetected) Coronavirus 229E (PCR) Not Detected (NotDetected) SARS-CoV-2 (PCR) Not Detected (NotDetected) Coronavirus NL63 (PCR) Not Detected (NotDetected) Human Metapneumovir PCR Not Detected (NotDetected) Influenza Type A (PCR) Not Detected (NotDetected) Influenza Type B (PCR) Not Detected (NotDetected) M. pneumoniae (PCR) Not Detected (NotDetected) Parainfluenza 1 (PCR) Not Detected (NotDetected) Parainfluenza 2 (PCR) Not Detected (NotDetected) Parainfluenza 3 (PCR) Not Detected (NotDetected) Parainfluenza 4 (PCR) Not Detected (NotDetected) RSV (PCR) Not Detected (NotDetected) Entero/Rhino (PCR) Not Detected (NotDetected) 02/12/24 02/12/24 Range/Units 11:23 11:42 WBC (4.8-10.8) K/ul RBC (4.20-5.40) M/uL Hgb (12.0-16.0) g/dl POC Hgb (12.0-16.0) g/dl Hct (37.0-47.0) % POC Hct (37-47) % MCV (80.0-100.0) fL MCH (25.0-34.0) pg MCHC (32.0-36.0) g/dL RDW Std Deviation (36.4-46.3) fL RDW Coeff of Mario (11.5-14.5) % Plt Count (130-400) K/uL MPV (9.4-12.4) fL Immature Gran % (Auto) % Neut % (Auto) % Lymph % (Auto) % [place] % (Auto) % Eos % (Auto) % Baso % (Auto) % Neut # (Auto) (1.40-6.50) K/uL Lymph # (Auto) (1.20-3.40) K/uL [place] # (Auto) (0.11-0.59) K/uL Eos # (Auto) (0.00-0.50) K/uL Baso # (Auto) (0.00-0.20) K/uL Immature Gran # (Auto) (0.01-0.20) K/uL Absolute Nucleated RBC (0.00-0.12) K/uL Nucleated RBC % (auto) % PT (9.0-12.0) Seconds INR (0.9-1.1) VBG pH 7.52 H (7.36-7.41) VBG pCO2 43 (38-50) mmHg VBG pO2 30 mmHg VBG HCO3 35 mmol/L VBG O2 Saturation < 60.0 % VBG Base Excess 11.2 mEq/L POC Sodium (135-144) mmol/L Sodium (136-145) mmol/L POC Potassium (3.3-5.0) mmol/L Potassium (3.5-5.1) mmol/L POC Chloride (101-112) mmol/L Chloride (98-107) mmol/L Carbon Dioxide (21-32) mmol/L POC Total CO2 (24-31) mmol/L Anion Gap (3-11) POC Anion Gap (16-25) mmol/L POC BUN (7-18) mg/dl BUN (6-23) mg/dl Creatinine (0.6-1.2) mg/dl POC Creatinine (0.6-1.3) mg/dl Est Cr Clr Drug Dosing ml/min eGFR BUN/Creatinine Ratio (10-20) Glucose (70-99(Fasting)) mg/dl POC Glucose (other) (70-99) mg/dl Osmolality (280-300) mOsm/kg Lactate 3.3 H* (0.4-2.0) mmol/L Calcium (8.6-10.3) mg/dl POC Ioniz Calcium Marah (1.12-1.32) mmol/l Magnesium (1.7-2.4) mg/dl Total Bilirubin (0.2-1.0) mg/dl AST (13-39) U/L ALT (7-52) U/L Alkaline Phosphatase (34-104) U/L Total Creatine Kinase 27 (26-192) U/L Total Protein (6.0-8.3) gm/dl Albumin (3.4-5.0) gm/dl Globulin (2.5-4.0) gm/dl Albumin/Globulin Ratio (0.9-2) Procalcitonin (0-0.5) ng/ml TSH (0.300-4.500) uIu/ml Free T4 (0.61-1.60) ng/dl Random Cortisol mcg/dl Urine Color Urine Appearance (Clear) Urine pH (4.5-7.5) Ur Specific [place] (1.000-1.030) Urine Protein (Negative) Urine Glucose (UA) (Negative) Urine Ketones (Negative) Urine Blood (Negative) Urine Nitrite (Negative) Urine Bilirubin (Negative) Urine Urobilinogen (Negative) Ur Leukocyte Esterase (Negative) Urine WBC (Auto) (0-5) /hpf Urine RBC (Auto) (0-2) /hpf U Hyaline Cast (Auto) (0-2) /lpf U Epithel Cells (Auto) (0-2) /hpf Urine Bacteria (Auto) (None Seen) Urine Yeast (None Prsent) Nasal Screen MRSA (PCR) (Negative) Adenovirus (PCR) (NotDetected) B. pertussis DNA (PCR) (NotDetected) B.parapertussis DNA PCR (NotDetected) C. pneumoniae DNA (PCR) (NotDetected) Coronavirus OC43 (PCR) (NotDetected) Coronavirus HKU1 (PCR) (NotDetected) Coronavirus 229E (PCR) (NotDetected) SARS-CoV-2 (PCR) (NotDetected) Coronavirus NL63 (PCR) (NotDetected) Human Metapneumovir PCR (NotDetected) Influenza Type A (PCR) (NotDetected) Influenza Type B (PCR) (NotDetected) M. pneumoniae (PCR) (NotDetected) Parainfluenza 1 (PCR) (NotDetected) Parainfluenza 2 (PCR) (NotDetected) Parainfluenza 3 (PCR) (NotDetected) Parainfluenza 4 (PCR) (NotDetected) RSV (PCR) (NotDetected) Entero/Rhino (PCR) (NotDetected) Administered Medications Meropenem 500 mg/ Syringe 10 mls @ 2 mls/min IV Q8H [facility]; Protocol Stop: 02/17/24 19:59 Last Admin: 02/12/24 19:28 Dose: 2 mls/min Documented By: AMMON Potassium Chloride (Potassium Chloride Crtab 20 Meq Tabcr) 20 meq PO TID [facility] Stop: 03/13/24 14:50 Last Admin: 02/12/24 16:00 Dose: 20 meq Documented By: JOHN Pregabalin (Pregabalin 75 Mg Cap) 75 mg PO TID [facility] Stop: 03/13/24 14:50 Last Admin: 02/12/24 16:00 Dose: 75 mg Documented By: JOHN Discontinued Medications Meropenem 500 mg/ Syringe 10 mls @ 2 mls/min IV NOW [facility]; Protocol Stop: 02/12/24 10:01 Last Admin: 02/12/24 12:16 Dose: 2 mls/min Documented By: JHON Vancomycin HCl 1,500 mg/ (Sodium Chloride) 530 mls @ 200 mls/hr IV NOW ONE Stop: 02/12/24 15:01 Last Infusion: 02/12/24 17:49 Dose: Infused Documented By: Admin: 02/12/24 13:21 Dose: 200 mls/hr Documented By: JOHN Parenteral Electrolytes (Plasma-Lyte A Ph 7.4) 500 mls @ 999 mls/hr IV .Q31M ONE Stop: 02/12/24 13:34 Last Infusion: 02/12/24 15:55 Dose: Infused Documented By: Admin: 02/12/24 14:36 Dose: 999 mls/hr Documented By: JOHN Parenteral Electrolytes (Plasma-Lyte A Ph 7.4) 1,000 mls @ 999 mls/hr IV .Q1H1M ONE Stop: 02/12/24 15:49 Last Infusion: 02/12/24 16:54 Dose: Infused Documented By: Admin: 02/12/24 15:52 Dose: 999 mls/hr Documented By: JOHN Potassium Chloride (Potassium Chloride Crtab 20 Meq Tabcr) 20 meq PO NOW STA Stop: 02/12/24 13:00 Last Admin: 02/12/24 14:58 Dose: Not Given Documented By: JOHN Imaging Data Radiologist's Impression: Chest X-Ray 02/12/24 08:06 XR chest 1V portable CLINICAL HISTORY: weakness COMPARISON STUDY: Chest CT October 23, 2023. Chest radiograph January 10, 2024. FINDINGS: Mild elevation of the right hemidiaphragm is unchanged. There is no pneumothorax or pleural effusion. Multiple old right upper rib fractures are again noted. Cardiomegaly is unchanged. There is no evidence for pulmonary edema. A hiatal hernia is again noted. Linear right lower lung densities favor scarring. There is no consolidation to suggest pneumonia. IMPRESSION: No acute cardiopulmonary findings. No significant change in appearance of the chest. ACT 112: Negative or not required by law. Electronically signed by: Shivam Ward M.D. 02/12/2024 8:41 AM Abdomen/Pelvis CT 02/12/24 09:57 CT OF THE ABDOMEN AND PELVIS WITHOUT CONTRAST CLINICAL HISTORY: Altered mental status. COMPARISON STUDY: CT of the abdomen and pelvis January 10, 2024. TECHNIQUE: Axial images of the abdomen and pelvis were obtained without IV contrast. Images were reviewed in the axial, sagittal, and coronal planes. Automated exposure control was utilized for the study. A dose lowering technique was utilized adhering to the principles of ALARA. FINDINGS: Secretions within the right lower lobe bronchi are better depicted on the chest CT. Right lower lobe and right middle lobe airspace opacities have increased since CT of January 10, 2024. There is a moderate sized hiatal hernia. No pneumatosis, free air or portal venous gas is present. There is no significant biliary ductal dilatation status post cholecystectomy. Spleen, adrenal glands, kidneys and pancreas are unremarkable on unenhanced exam. No hydronephrosis. There are no urinary calculi. There is no pancreatic ductal dilatation. A moderate amount of stool within the colon and rectum is present. There is extensive colonic diverticulosis without evidence for acute diverticulitis. There is no evidence for a bowel obstruction. There are no fluid collections. The appendix is normal. There is no lymphadenopathy. Old L2 compression fracture is unchanged. No acute fractures. Severe multilevel degenerative changes within the lumbar spine are incidentally noted. Mild bladder wall thickening is unchanged. There are several bladder diverticula. IMPRESSION: 1. No urinary calculi or hydronephrosis. Bladder wall thickening, similar to prior exam. This could be correlated with urinalysis. 2. No bowel obstruction. Moderate amount of stool within the colon and rectum. 3. Extensive colonic diverticulosis. No evidence for acute diverticulitis. 4. Secretions within the right lower lobe bronchi with right lower lobe and right middle lobe airspace opacities which have developed since prior CT. The findings may reflect pneumonia or aspiration pneumonitis. ACT 112: Negative or not required by law. Electronically signed by: Shivam Ward M.D. 02/12/2024 10:[address] 02/12/24 09:57 CT chest diagnostic wo con CLINICAL HISTORY: 83 years-old Female with sepsis. Acute sepsis TECHNIQUE: Multiaxial CT images of the chest were performed without contrast. A dose lowering technique was utilized adhering to the principles of ALARA. COMPARISON: CT abdomen and pelvis of same day, chest radiograph of same day chest CT 10/23/2023 FINDINGS: No dominant thyroid nodule or lymphadenopathy. Borderline enlarged heart. No pericardial effusion. Moderate coronary artery calcifications. No thoracic aortic aneurysm. Trace pleural effusions. Right lower lobe predominant mucous plugging with linear right alveolar consolidation. Patchy multifocal tree-in-bud nodules of the right lung base. Mild subsegmental left basilar atelectasis. 3 mm solid nodule within the apical posterior segment left upper lobe is unchanged. 3 mm solid nodules in the right lung apex is also likely stable. Mid to distal esophageal wall thickening with moderate sized hiatal hernia. Cholecystectomy. Colonic diverticulosis. Degenerative changes of the shoulders and spine. Healed chronic fracture lateral right third rib. No acute fracture identified. IMPRESSION: 1. Findings suggestive of aspiration pneumonitis with right lower lobe predominant mucous plugging, linear consolidation with tree-in-bud nodules/bronchiolitis. 2. Mid to distal esophageal wall thickening with moderate sized hiatal hernia. 3. No lymphadenopathy. ACT 112: Negative or not required by law. Electronically signed by: Nic Winters M.D. 02/12/2024 10:[address] 02/12/24 09:57 CT OF THE HEAD WITHOUT CONTRAST CLINICAL HISTORY: Sepsis. COMPARISON STUDY: Head CT January 10, 2024) MRA brain January 22, 2024. CT DOSE: 1368.71 mGy.cm TECHNIQUE: Helical axial images of the head were obtained without IV contrast. Automated exposure control was utilized for the study. A dose lowering technique was utilized adhering to the principles of ALARA. FINDINGS: No acute intracranial hemorrhage, midline shift or mass effect is present. The ventricular system is stable. Basal cisterns are patent. There are no extra-axial collections. White matter hypodensity suggests small vessel disease. These are unchanged. A 1 cm hypodensity within the right cerebellar hemisphere on image 6 of is present. There is a possible corresponding old infarct on MRI of January 22, 2024. However, this finding remains age indeterminate. IMPRESSION: 1. No acute intracranial hemorrhage or mass effect. 2. 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 ACT 112: Negative or not required by law. Electronically signed by: Shivam Ward M.D. 02/12/2024 10:35 AM Discharge Plan Visit Data Chief Complaint: Lethargic Stated Complaint: LETHARGIC ED Provider: Ant Pryor ED Midlevel Provider: Sarthak Coulter Discharge Problem: Sepsis, ESBL (extended spectrum beta-lactamase) producing bacteria infection, Bilateral leg edema, Rheumatoid arthritis, Steroid dependence, Aspiration pneumonia, Leukocytosis Patient Disposition: Admitted As Inpatient Discharge Instructions Interventions: ED Discharge Assessment Last Done: 02/12/24 14:52 Discharge Problem: Sepsis Qualifiers: Sepsis type: sepsis due to unspecified organism Sepsis acute organ dysfunction status: unspecified Qualified Code(s): A41.9 - Sepsis, unspecified organism Rheumatoid arthritis Qualifiers: Rheumatoid arthritis location: unspecified site Rheumatoid factor presence: u nspecified presence Qualified Code(s): M06.9 - Rheumatoid arthritis, unspecified Aspiration pneumonia Qualifiers: Aspiration pneumonia type: unspecified Laterality: right Lung location: lower lobe of lung Qualified Code(s): J69.0 - Pneumonitis due to inhalation of food and vomit Leukocytosis Qualifiers: Leukocytosis type: unspecified Qualified Code(s): D72.829 - Elevated white blood cell count, unspecified
[2024-02-12 08:33] LABS: iSTAT Creatinine 1.7 mg/dl (0.6-1.3); iSTAT Hemoglobin 8.8 g/dl (12.0-16.0); iSTAT Ionized Calcium 1.01 mmol/l (1.12-1.32); iSTAT Potassium 3.6 mmol/L (3.3-5.0)
[2024-02-12 08:38] LABS: Basophils # (auto) 0.02 K/uL (0.00-0.20); Basophils % (auto) 0.1 %; Eosinophils # (auto) 0.01 K/uL (0.00-0.50); Eosinophils % (auto) 0.1 %; Hematocrit (blood only) 26.3 % (37.0-47.0); Hemoglobin 8.4 g/dl (12.0-16.0); Immature Granulocytes # (auto) 0.49 K/uL (0.01-0.20); Immature Granulocytes % (auto) 2.8 %; Lymphocytes # (auto) 0.62 K/uL (1.20-3.40); Lymphocytes % (auto) 3.6 %; Mean Corpuscular Hemoglobin 30.3 pg (25.0-34.0); Mean Corpuscular Hgb Conc 31.9 g/dL (32.0-36.0); Mean Corpuscular Volume 94.9 fL (80.0-100.0); Mean Platelet Volume 10.9 fL (9.4-12.4); Monocytes # (auto) 1.21 K/uL (0.11-0.59); Neutrophils # (auto) 14.86 K/uL (1.40-6.50); Neutrophils % (auto) 86.4 %; Nucleated RBC # (auto) 0.08 K/uL (0.00-0.12); Nucleated RBC % (auto) 0.5 %; Platelet Count 233 K/uL (130-400); RDW Coefficient of Variation 18.2 % (11.5-14.5); RDW Standard Deviation 63.3 fL (36.4-46.3); Red Blood Count 2.77 M/uL (4.20-5.40); White Blood Count 17.21 K/ul (4.8-10.8)
--- NOTE | 2024-02-12 08:42 | XRay Report ---
XR chest 1V portable CLINICAL HISTORY: weakness COMPARISON STUDY: Chest CT October 23, 2023. Chest radiograph January 10, 2024. FINDINGS: Mild elevation of the right hemidiaphragm is unchanged. There is no pneumothorax or pleural effusion. Multiple old right upper rib fractures are again noted. Cardiomegaly is unchanged. There i s no evidence for pulmonary edema. A hiatal hernia is again noted. Linear right lower lung densities favor scarring. There is no consolidation to suggest pneumonia. IMPRESSION: No acute cardiopulmonary findings. No significant change in appearance of the chest. ACT 112: Negative or not required by law. Electronically signed by: Shivam Ward M.D. 02/12/2024 8:41 AM
[2024-02-12 08:51] LABS: Appearance Urine Clear (Clear); Bacteria Urine Automated None Seen (None Seen); Bilirubin Urine Negative (Negative); Blood Urine Negative (Negative); Cast Urine Automated 0-2 /lpf (0-2); Color Urine Yellow; Epithelial Cell Urine Auto 0-2 /hpf (0-2); Glucose Urine UA 3+ (Negative); Ketones Urine Negative (Negative); Leukocyte Esterase Urine 1+ (Negative); Nitrite Urine Negative (Negative); Protein Urine Trace (Negative); Specific Gravity Urine 1.016 (1.000-1.030); Urobilinogen Urine Negative (Negative)
[2024-02-12 09:03] LABS: INR 0.9 (0.9-1.1); Prothrombin Time 10.2 Seconds (9.0-12.0)
[2024-02-12 09:13] LABS: Albumin Globulin Ratio 1.3 (0.9-2); Albumin Level 3.2 gm/dl (3.4-5.0); Bilirubin,Total 0.7 mg/dl (0.2-1.0); Calcium 8.2 mg/dl (8.6-10.3); Creatinine Clr Calc Pharmacy 25.8 ml/min; Globulin 2.5 gm/dl (2.5-4.0); Magnesium 3.2 mg/dl (1.7-2.4); Potassium 3.7 mmol/L (3.5-5.1); Total Protein 5.7 gm/dl (6.0-8.3)
[2024-02-12 09:19] LABS: Thyroid Stimulating Hormone 0.029 uIu/ml (0.300-4.500)
[2024-02-12 09:58] LABS: T4 Free Thyroxine 1.13 ng/dl (0.61-1.60)
--- NOTE | 2024-02-12 10:37 | CT Scan Report ---
CT OF THE HEAD WITHOUT CONTRAST CLINICAL HISTORY: Sepsis. COMPARISON STUDY: Head CT January 10, 2024) MRA brain January 22, 2024. CT DOSE: 1368.71 mGy.cm TECHNIQUE: Helical axial images of the head were obtained without IV contrast. Automated exposure con trol was utilized for the study. A dose lowering technique was utilized adhering to the principles o f ALARA. FINDINGS: No acute intracranial hemorrhage, midline shift or mass effect is present. The ventricular system is stable. Basal cisterns are patent. There are no extra-axial collections. White matter hypod ensity suggests small vessel disease. These are unchanged. A 1 cm hypodensity within the right cerebe llar hemisphere on image 6 of is present. There is a possible corresponding old infarct on MRI of January 22, 2024. However, this finding remains age indeterminate. IMPRESSION: 1. No acute intracranial hemorrhage or mass effect. 2. 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 ACT 112: Negative or not required by law. Electronically signed by: Shivam Ward M.D. 02/12/2024 10:35 AM
--- NOTE | 2024-02-12 10:46 | CT Scan Report ---
CT OF THE ABDOMEN AND PELVIS WITHOUT CONTRAST CLINICAL HISTORY: Altered mental status. COMPARISON STUDY: CT of the abdomen and pelvis January 10, 2024. TECHNIQUE: Axial images of the abdomen and pelvis were obtained without IV contrast. Images were revi ewed in the axial, sagittal, and coronal planes. Automated exposure control was utilized for the sourav dy. A dose lowering technique was utilized adhering to the principles of ALARA. FINDINGS: Secretions within the right lower lobe bronchi are better depicted on the chest CT. Right l ower lobe and right middle lobe airspace opacities have increased since CT of January 10, 2024. There is a moderate sized hiatal hernia. No pneumatosis, free air or portal venous gas is present. There i s no significant biliary ductal dilatation status post cholecystectomy. Spleen, adrenal glands, kidne ys and pancreas are unremarkable on unenhanced exam. No hydronephrosis. There are no urinary calculi. There is no pancreatic ductal dilatation. A moderate amount of stool within the colon and rectum is present. There is extensive colonic diverticulosis without evidence for acute diverticulitis. There i s no evidence for a bowel obstruction. There are no fluid collections. The appendix is normal. There is no lymphadenopathy. Old L2 compression fracture is unchanged. No acute fractures. Severe multileve l degenerative changes within the lumbar spine are incidentally noted. Mild bladder wall thickening i s unchanged. There are several bladder diverticula. IMPRESSION: 1. No urinary calculi or hydronephrosis. Bladder wall thickening, similar to prior exam. This could b e correlated with urinalysis. 2. No bowel obstruction. Moderate amount of stool within the colon and rectum. 3. Extensive colonic diverticulosis. No evidence for acute diverticulitis. 4. Secretions within the right lower lobe bronchi with right lower lobe and right middle lobe airspac e opacities which have developed since prior CT. The findings may reflect pneumonia or aspiration pne umonitis. ACT 112: Negative or not required by law. Electronically signed by: Shivam Ward M.D. 02/12/2024 10:44 AM
--- NOTE | 2024-02-12 10:58 | CT Scan Report ---
CT chest diagnostic wo con CLINICAL HISTORY: 83 years-old Female with sepsis. Acute sepsis TECHNIQUE: Multiaxial CT images of the chest were performed without contrast. A dose lowering techni que was utilized adhering to the principles of ALARA. COMPARISON: CT abdomen and pelvis of same day, chest radiograph of same day chest CT 10/23/2023 FINDINGS: No dominant thyroid nodule or lymphadenopathy. Borderline enlarged heart. No pericardial ef fusion. Moderate coronary artery calcifications. No thoracic aortic aneurysm. Trace pleural effusions. Right lower lobe predominant mucous plugging with linear right alveolar cons olidation. Patchy multifocal tree-in-bud nodules of the right lung base. Mild subsegmental left basil ar atelectasis. 3 mm solid nodule within the apical posterior segment left upper lobe is unchanged. 3 mm solid nodules in the right lung apex is also likely stable. Mid to distal esophageal wall thickening with moderate sized hiatal hernia. Cholecystectomy. Colonic diverticulosis. Degenerative changes of the shoulders and spine. Healed chronic fracture lateral righ t third rib. No acute fracture identified. IMPRESSION: 1. Findings suggestive of aspiration pneumonitis with right lower lobe predominant mucous plugging, l inear consolidation with tree-in-bud nodules/bronchiolitis. 2. Mid to distal esophageal wall thickening with moderate sized hiatal hernia. 3. No lymphadenopathy. ACT 112: Negative or not required by law. Electronically signed by: Nic Winters M.D. 02/12/2024 10:56 AM
[2024-02-12 11:47] LABS: Adenovirus PCR Not Detected (NotDetected); Bordetella parapertussis PCR Not Detected (NotDetected); Bordetella pertussis PCR Not Detected (NotDetected); Chlamydia pneumoniae PCR Not Detected (NotDetected); Coronavirus 229E PCR Not Detected (NotDetected); Coronavirus CoV-2 (COVID19)PCR Not Detected (NotDetected); Coronavirus HKU1 PCR Not Detected (NotDetected); Coronavirus NL63 PCR Not Detected (NotDetected); Coronavirus OC43PCR Not Detected (NotDetected); Human Metapneumovirus PCR Not Detected (NotDetected); Influenza A PCR Not Detected (NotDetected); Influenza B PCR Not Detected (NotDetected); Mycoplasma pneumoniae PCR Not Detected (NotDetected); Parainfluenza Virus 1 PCR Not Detected (NotDetected); Parainfluenza Virus 2 PCR Not Detected (NotDetected); Parainfluenza Virus 3 PCR Not Detected (NotDetected); Parainfluenza Virus 4 PCR Not Detected (NotDetected); Respiratory Syncytial VirusPCR Not Detected (NotDetected); Rhinovirus/Enterovirus PCR Not Detected (NotDetected)
--- NOTE | 2024-02-12 11:49 | History & Physical Report ---
Date of Service February 12, 2024 Assessment & Plan (1) Aspiration pneumonia: Plan: patient with history of ESBL E. coli/sepsis/bacteremia/recurrent UTIs -> currently undergoing course of ertapenem x 2 weeks Sx of fatigue, cough, sore throat, rhinorrhea CT chest showing aspiration pneumonitis with RLL predominant mucous plugging, linear consolidation with tree-in-bud modules/bronchiolitis - Leukocytosis with left shift, WBC 17.21 - lactate 3.3 -> 5.2, continue to trend - VSS, does not meet criteria for sepsis at this time - continue meropenem given ESBL history - renally dosed for CrCl - MRSA swab - (although chronically +) -> addition of vanco on admission - discussed with pharmacy, repeat MRSA swab negative - will dc Vanco - 1500 mL bolus of plasmalyte on admission as patient clinically appeared dry and lactate elevated - given critical IV shortage, LR unavailable at time of admission - incentive spirometry - blood cultures ordered - defer ID consult at this time as patient with known recurrent ESBL infection responding to treatment with current abx regimen Aspiration: evaluated by speech on admission - video swallow 01/10/24 showed penetration and scant silent aspiration of thin via straw - noted esophageal dysmotility with retrograde motion that is likely reentering the pharyngeal cavity likely the etiology of PNA - recommending mouth care, no straws, easy to chew, thin liquids - aspiration and reflux precautions - defer repeat video swallow at this time (2) Chronic kidney disease, stage IV (severe): Plan: Mild DENNIS - Cr 1.7 on admission (baseline 1.2) - avoid nephrotoxic agents - IV fluid bolus above, promote oral hydration - trend BMP (3) Hypokalemia: Plan: chronic - 3.6 on admission -> unable to tolerate PO K+ ordered on admission due to swallowing difficulty, given IV fluid shortage will defer IV K+ at this time with daily TID supplement - continue potassium chloride 20 meQ TID (4) Steroid dependence: Plan: On stress dose steroids - Solu-Medrol 62.5 mg + prednisone 20 mg daily - likely contributing to leukocytosis - random cortisol WNL, 4.95 - CK negative - will discontinue Solu-Medrol as patient still declining and puts at increased risk for sepsis - continue with prednisone 20 mg daily Hyperglycemia: secondary to steroid use - glucose 332 on admission - with discontinuing Solu-Medrol - will expect glucose to decrease - adding Novolog with correction factor of 50 - trend BMP and A1c with Am labs (5) ESBL (extended spectrum beta-lactamase) producing bacteria infection: Plan: History of recurrent UTIs, bacteremia, and sepsis CT A/P showing bladder wall thickening UA showing 1+ leukocyte esterase, 11-20 WBC, yeast - continue methenamine - continue with ESBL coverage - IV meropenem (dc PO ertapenem - to finish course 02/17) - follow urine cultures (6) Left shoulder pain: Plan: History of RA Left shoulder pain x 1 week; denies trauma to shoulder - XR showing no fxs, severe osteoarthritis, elevation of left humeral head suggestive of chronic rotator cuff tear - Tylenol prn, voltaren gel, continue prednisone for RA (7) HTN (hypertension): Plan: stable - hydralazine, Bumex, and losartan on hold with hypotension during previous admission - continue amlodipine, carvedilol (8) Metabolic alkalosis: Plan: VBG 7.52/43/35 similar to previous on 01/09 - denies diarrhea or vomiting - potassium repletion above - continue to hold Bumex (9) Wound of foot: Plan: 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), chronic, see images in chart - Tylenol prn - wound care daily (10) Pulmonary HTN: Plan: Echo 09/30/23 EF 55 to 60%, borderline LVH, severe pulmonary hypertension - continue carvedilol (11) Hypothyroidism: Plan: - TSH decreased (0.029), T4 WNL - continue Levothyroxine (12) Goals of care, counseling/discussion: Plan: Patient with recurrent infections, recent decline, and confusion - as per staff at [facility] - patient considered comfort measures 02/11/24 - patient able to have conversation but disoriented, next of kin is Brother - palliative consulted, will discuss further in AM with patient and her family Plan Chronic stable diagnoses: Hx DVT - continue Eliquis Anemia - continue B12, folate, and iron supplements GERD - continue Pepcid and pantoprazole RA - continue with prednisone 20 mg daily depression - continue venlafaxine VTE ppx: Eliquis Diet: easy to chew, thin liquid, no straws Code status: DNR/DNI Dispo: Med/tele Admission and Anticipated Discharge Date Admission Date: 02/12/24 History of Present Illness Chief Complaint: lethargic Primary Care Provider: [facility] Pt is an 83 yo female with PMH of RA, CKD, DVT, NSTEMI, DVT, Recurrent ESBL E. coli sepsis/bacteremia/UTI. She presents today due to lethargy. She came from [facility] stated that she has been in bed for the past few days, with poor eating habits/eating in bed. She denies that she may have aspirated. They stated that she is just had an overall decline/failure to thrive. The patient had a discussion with staff yesterday about possibly switching to comfort care, changed her mind overnight and stated that she would still like to come to the hospital to be treated. She is currently prescribed ertapenem for 2 weeks, began 01/30 to be finished 02/17. She also was started on stress does steroids. Patient stated that she has had a cough, sore throat, rhinorrhea, fatigue, felt feverish for the past few days. She denies sputum production. She confirmed that she took her morning medications this morning. Patient denies dizziness, lightheadedness, dyspnea, dyspnea on exertion, chest pain, abdominal pain, nausea, vomiting, diarrhea, constipation, dysuria, hematuria, numbness, tingling. She also complains of left shoulder pain, denies trauma to shoulder. State her foot wounds are stable and currently denies pain. Allergies Allergy/AdvReac Type Severity Reaction Status Date / Time aspirin Allergy Severe ANAPHYLAXIS Verified 01/10/24 18:45 duloxetine [From Cymbalta] Allergy Intermediate Rash Verified 01/10/24 18:45 NSAIDS (Non-Steroidal Allergy Unknown Verified 01/10/24 18:45 Anti-Inflamma lisinopril AdvReac Intermediate Cough Verified 01/10/24 18:45 Home Medications Medication Instructions Recorded Confirmed Type acetaminophen 325 mg tablet 650 mg PO Q6 PRN Fever Or Pain 09/28/23 02/12/24 History (Tylenol) brimonidine 0.2 %-timolol 0.5 % 1 drp OPB BID 09/28/23 02/12/24 History eye drops bumetanide 2 mg tablet 2 mg PO QAM 09/28/23 02/12/24 History calcium carbonate 1,000 mg PO Q2H PRN Heartburn 09/28/23 02/12/24 History carboxymethylcellulose sodium 1 % 1 drp OPL Q6H PRN DRYNESS/WATERING 09/28/23 02/12/24 History eye drops (Artificial Tears (carboxymethylcellulose)) famotidine 10 mg tablet 10 mg PO HS 09/28/23 02/12/24 History levothyroxine 75 mcg tablet 75 mcg PO QAM 09/28/23 02/12/24 History magnesium oxide 500 mg PO HS 09/28/23 02/12/24 History ondansetron HCl 4 mg tablet 4 mg PO Q6H PRN Nausea 09/28/23 02/12/24 History pantoprazole 40 mg tablet,delayed 40 mg PO DAILY 09/28/23 02/12/24 History release ropinirole 2 mg tablet 2 mg PO HS 09/28/23 02/12/24 History amlodipine 10 mg tablet 10 mg PO DAILY #10 tabs 10/03/23 02/12/24 Rx carvedilol 6.25 mg tablet 6.25 mg PO BID 10/23/23 02/12/24 History venlafaxine 150 mg 150 mg PO UD 10/23/23 02/12/24 History capsule,extended release 24 hr apixaban 2.5 mg tablet (Eliquis) 2.5 mg PO BID #0 tabs 10/30/23 02/12/24 Rx folic acid 1 mg tablet 1 mg PO QAM #0 tabs 10/30/23 02/12/24 Rx loratadine 5 mg-pseudoephedrine ER 1 tab PO Q12H PRN allergy symptoms 10/30/23 02/12/24 Rx 120 mg tablet,extended #0 tabs release,12hr (Claritin-D 12 Hour) sennosides 8.6 mg tablet (Senokot) 8.6 mg PO QAM #0 tabs 10/30/23 02/12/24 Rx diclofenac sodium 1 % topical gel 0 g topical QID 12/04/23 02/12/24 History prednisone 20 mg tablet 20 mg PO QAM 12/04/23 02/12/24 History pregabalin 75 mg capsule 75 mg PO TID 12/04/23 02/12/24 History venlafaxine 37.5 mg 37.5 mg PO UD depression 12/04/23 02/12/24 History capsule,extended release 24 hr polyethylene glycol 3350 17 gram 17 g PO QAM 01/10/24 02/12/24 History oral powder packet (Miralax) polysaccharide iron complex 150 mg 150 mg PO DAILY 01/10/24 02/12/24 History iron capsule (Ferrex) potassium chloride 20 mEq 20 meq PO TID 01/10/24 02/12/24 History tablet,extended release(part/cryst) ertapenem 1 gram solution for 1 g IV DAILY #4 ea 01/15/24 02/12/24 Rx injection ascorbic acid (vitamin C) 1,000 mg 1 g PO QAM 02/12/24 02/12/24 History tablet (Vitamin C) bisacodyl 10 mg rectal suppository 10 mg DE DAILY PRN Constipation 02/12/24 02/12/24 History (Dulcolax (bisacodyl)) cyanocobalamin (vitamin B-12) 1,000 mcg PO QAM 02/12/24 02/12/24 History 1,000 mcg tablet (Vitamin B-12) latanoprost 0.005 % eye drops 1 drp OPB HS 02/12/24 02/12/24 History lidocaine HCl 10 mg/mL (1 %) See Rx Instructions .Route .COMPLEX 02/12/24 02/12/24 History injection solution magnesium hydroxide 400 mg/5 mL See Rx Instructions .Route .COMPLEX 02/12/24 02/12/24 History oral suspension (Milk of Magnesia) methenamine hippurate 1 gram tablet 1 g PO BID 02/12/24 02/12/24 History methylprednisolone sod suc(PF) 125 62.5 mg IM QAM 02/12/24 02/12/24 History mg/2 mL solution for injection (Solu-Medrol (PF)) morphine concentrate 100 mg/5 mL 10 mg PO Q1H PRN Pain 02/12/24 02/12/24 History (20 mg/mL) oral solution nystatin 100,000 unit/gram topical 1 applic topical BID 02/12/24 02/12/24 History powder promethazine 25 mg/mL injection 25 mg IM Q6H PRN Nausea And 02/12/24 02/12/24 History solution Vomiting sodium phosphates 19 gram-7 118 ml DE DAILY PRN Constipation 02/12/24 02/12/24 History gram/118 mL enema (Fleet Enema) Past Med/Surg History Problem List (Updated 02/12/24 @ 22:12 by FRANCINE Mc) Lethargy Goals of care, counseling/discussion Confusion Metabolic alkalosis (HFpEF) heart failure with preserved ejection fraction Wound of foot Left shoulder pain Hypokalemia Leukocytosis (Acute) Aspiration pneumonia (Acute) Sepsis (Acute) Pulmonary hypertension ESBL (extended spectrum beta-lactamase) producing bacteria infection (Acute) Pulmonary HTN Acute heart failure with preserved ejection fraction (HFpEF) Chronic kidney disease, stage IV (severe) Steroid dependence (Acute) Rheumatoid arthritis (Acute) FOLLOWS DR. TREVINO Essential hypertension Lower extremity ulceration Degenerative spondylolisthesis Scoliosis of lumbar region due to degenerative disease of spine in adult Painful orthopaedic hardware Occult blood positive stool Generalized weakness (Acute) Bilateral edema of lower extremity (Acute) Greater trochanteric bursitis of left hip Bilateral leg edema Lumbar spinal stenosis Severe at L2-S1 Acute kidney injury superimposed on CKD HTN (hypertension) (Chronic) Spinal stenosis, lumbar region with neurogenic claudication Hypothyroidism Depression Neuropathy (Chronic) FEET Restless leg syndrome (Chronic) Glaucoma (Chronic) Medical History Thrombocytopenia Sepsis Gram-negative bacteremia Streptococcal bacteremia Community acquired pneumonia Metabolic encephalopathy DVT (deep venous thrombosis) Non-ST elevation [place] (NSTEMI) assisted resident resident of [facility] Dysphagia Gait abnormality Low back pain Personal history of venous thrombosis and embolism Other intestinal Escherichia coli infections Cognitive communication deficit Adult failure to thrive Herniated lumbar disc without myelopathy Left central disc herniation at L5-S1 Lumbar radiculopathy High cholesterol Anxiety Hypertension Surgical History History of total bilateral knee replacement (TKR) History of carpal tunnel release RIGHT HAND Hx of arthroscopy RIGHT KNEE (MENISCUS) Hx of tonsillectomy Hx of hysterectomy Hx laparoscopic cholecystectomy Family History Mother Family history of reaction to anesthesia SLOW TO AWAKEN Social History Smoking Status: Never smoker Second Hand Exposure: No; Do You Dip or Chew Tobacco: No; Hx Alcohol Use: Yes Alcohol type: hard liquor Hx Substance Use: No Preferred Language: Palau[place] Communication Ability: Effective Communication Ability Comment: Pt disoriented, but able to communicate needs Visual Impairment: No Limitations Foreign Service Officer Required: No Beliefs That Will Affect Care: None marital status: Single Current Living Situation: Jail Current Living Situation Comment: [facility] How many Children do You have: 0 Feels Safe at Home: Yes Safety Concerns: Feels Safe At This Time Assistive Devices: Glasses Review of Systems 2 Review of Systems: see HPI Physical Exam 2 Physical Exam: The patient is awake, alert and oriented 3, well developed and well nourished, normocephalic and atraumatic, in no acute distress. Non-toxic appearing. HEENT- EOMI, mucous membranes moist. Hearing grossly intact. Heart-normal S1 and S2. No murmurs, rubs or gallops. Lungs-decreased BL lower lobes, no respiratory distress, no accessory muscle use. Abdomen-normal bowel sounds and soft. No ascites noted. Non-tender. Extremities- no clubbing, cyanosis. Mild BL edema (+1). Foot wounds below Rheumatologic-decreased range of motion. Psychiatric-normal affect. Musculoskeletal: Shoulder: + ROM with crepitation; no skin erythema and no ecchymosis Results & Data Results & Data Vital Signs (Past 12 Hours) Vital Signs Temp Pulse Pulse Resp BP BP Pulse Ox 02/12/24 09:39 85 18 157/76 H 93 02/12/24 08:21 96 02/12/24 08:17 89 02/12/24 07:47 18 02/12/24 07:47 02/12/24 07:46 36.6 C 82 18 161/82 H 98 O2 Del Method 02/12/24 09:39 Room Air 02/12/24 08:21 Room Air 02/12/24 08:17 02/12/24 07:47 02/12/24 07:47 Room Air 02/12/24 07:46 Code Status & VTE Plan Code Status DNR/DNI VTE Prophylaxis Plan VTE Prophylaxis will be ordered: Yes Supervising Physician Co-Signing Physician Notes I personally saw and examined the patient. I independently reviewed the labs, EKG, imaging, problem list, medication list, past medical history and family history. I verified all sawyer points and agree with Jacqui Maldonado PA-C with the following exceptions and/or additions: 83 year old female from [facility] with repeated hospitalizations for ESBL bacteremia presents to the ER with tiredness all the time. [facility] was to switch to a more comfort care approach if she was not improving on IM ertapenem but this morning she changed her mind and now wishes to see if there is anything the hospital can help her with as she has improved here in the past. O/E Alert and orientated to place and person, HS RRR, no murmurs, Chest CTAB, Abdo SNT, 1+ pedal edema b/l equal but with wrinkling of skin A/P Tired all the time - this is her main symptoms which I am not sure we have a reversible cause for. The steroids appear to be causing hyperglycemia with osmotic diuresis and I do not believe she needs ongoing stress dosing therefore will reduce back to 20mg PO daily. Certainly she could be bacteremia with a different organism and will expand antibiotics to vancomycin + meropenem awaiting these. If ongoing ESBL bacteremia despite [facility] perhaps she is seeding from somewhere. Aspiration pneumonia may also be playing a part but ertapenem should have been taking care of this as well. My general impression she is declining from repeated hospitalizations and will have palliative care involved to help with goals of care discussions. Aspiration pneumonia - speech and language therapy to assess, aspiration precautions, IV meropenem, given MRSA nasal swabs positive previously will also add on vancomycin ESBL bacteremia - she was appropriately being treated with ertapenem for this, now being switched to meropenem, antibiotics due to stop 02/17, await further blood cultures Elevated lactate with normal bicarb - she does not meet sepsis criteria but certainly could be hypovolemia related with osmotic diuresis, Plasmalyte 1.5 L bolus given with improvement in lactate after initial elevation PG Care Time/CCT Total # of Minutes Spent Total Time Spent with Patient: Total time spent is greater than 50% in coordination of care (as documented) at patient's floor/unit and/or counseling patient: Coding Level of Care Code 17698 INT INP/OBS CARE 3/75MIN Diagnoses Aspiration pneumonia J69.0 Chronic kidney disease, stage IV (severe) N18.4 Hypokalemia E87.6 Steroid dependence F19.20 ESBL (extended spectrum beta-lactamase) producing bacteria infection A49.9; Z16.12 Left shoulder pain M25.512 HTN (hypertension) I10 Hypertension type: unspecified Metabolic alkalosis E87.3 Wound of foot S91.309A Pulmonary HTN I27.20 Hypothyroidism E03.9 Goals of care, counseling/discussion Z71.89 (7) HTN (hypertension) Hypertension type: unspecified Qualified Code(s): I10 - Essential (primary) hypertension
[2024-02-12 11:56] LABS: Base Excess VBG 11.2 mEq/L; HCO3 VBG 35 mmol/L; Oxygen Saturation VBG < 60.0 %; PCO2 VBG 43 mmHg (38-50); PO2 VBG 30 mmHg; pH VBG 7.52 (7.36-7.41)
[2024-02-12] MEDS: MEROPENEM 500 MG in SYRINGE 0 ML IV STA (12:16)
[2024-02-12] MEDS ORDERED: VANCOMYCIN CONSULT ACTIVE PRN (12:23)
[2024-02-12] MEDS: VANCOMYCIN HCL 1,500 MG in SODIUM CHLORIDE 0.9% 500 ML IV ONE (13:21)
--- NOTE | 2024-02-12 13:52 | XRay Report ---
XR shoulder LT min 2V routine CLINICAL HISTORY: Left shoulder pain. COMPARISON: None FINDINGS: There are no fractures within the left shoulder. Elevation of the left humeral head with n arrowing of the subacromial space is noted. There is severe glenohumeral joint space narrowing as wel l as moderate joint space narrowing and osteophytosis of the acromioclavicular joint. IMPRESSION: 1. No fractures within the left shoulder. 2. Severe osteoarthritis within the left shoulder. 3. Elevation of the left humeral head suggestive of a chronic rotator cuff tear. ACT 112: Negative or not required by law. Electronically signed by: Shivam Ward M.D. 02/12/2024 1:50 PM
--- NOTE | 2024-02-12 14:16 | Electrocardiogram Report ---
Test Reason : Blood Pressure : */* mmHG Vent. Rate : 82 BPM Atrial Rate : 82 BPM P-R Int : 126 ms QRS Dur : 98 ms QT Int : 356 ms P-R-T Axes : 46 15 74 degrees QTcB Int : 415 ms Normal sinus rhythm Minimal voltage criteria for LVH, may be normal variant Nonspecific ST and T wave abnormality Abnormal ECG When compared with ECG of 10-Jan-2024 18:05, No significant change was found Confirmed by Benito Oakes ([id number]) on 02/12/2024 2:15:58 PM Referred By: Confirmed By: Benito Oakes
[2024-02-12] MEDS: PLASMA-LYTE A 500 ML IV ONE (14:36)
[2024-02-12] MEDS ORDERED: ACETAMINOPHEN 325 MG TAB PO PRN (14:51)
[2024-02-12] MEDS: POTASSIUM CHLORIDE CRTAB 20 MEQ TABCR PO STA (14:58)
[2024-02-12] MEDS ORDERED: CALCIUM CARBONATE 500 MG CHEWABLE TAB PO PRN (15:26)
[2024-02-12] MEDS: PLASMA-LYTE A 1,000 ML IV ONE (15:52)
[2024-02-12] MEDS: PREGABALIN 75 MG CAP PO SCH (16:00)
[2024-02-12] MEDS: POTASSIUM CHLORIDE CRTAB 20 MEQ TABCR PO SCH (16:00)
[2024-02-12] MEDS ORDERED: GLUCAGON FOR INJ 1 MG VIAL SQ PRN (18:43)
[2024-02-12] MEDS ORDERED: DEXTROSE 50% 50 ML SYRINGE IV PRN (18:43)
[2024-02-12] MEDS ORDERED: CARBOHYDRATES FOR HYPOGLYCEMIA PO PRN (18:43)
[2024-02-12] MEDS ORDERED: GLUCOSE 40% GEL 15 GM TUBE PO PRN (18:43)
[2024-02-12] MEDS ORDERED: GLUCOSE 10 TAB/TUBE PO PRN (18:43)
[2024-02-12] MEDS ORDERED: ARTIFICIAL TEARS OPL PRN (18:45)
[2024-02-12] MEDS: MEROPENEM 500 MG in SYRINGE 0 ML IV SCH (19:28)
[2024-02-12] MEDS: PLASMA-LYTE A 1,000 ML IV SCH (20:30)
[2024-02-12] MEDS: LATANOPROST 0.005% OP SOLN 2.5 ML BTL OPB SCH (20:30)
[2024-02-12] MEDS: TIMOLOL MALEATE 0.5% OP SOLN 5 ML BTL OPB SCH (20:31)
[2024-02-12] MEDS: POLYETHYLENE (MIRALAX) 17 GM PACK PO PRN (20:31)
[2024-02-12] MEDS: FAMOTIDINE 10 MG TABLET PO SCH (20:32)
[2024-02-12] MEDS: BRIMONIDINE TARTRATE 0.2% 5ML OPB SCH (20:32)
[2024-02-12] MEDS: APIXABAN 2.5 MG TAB PO SCH (20:32)
[2024-02-12] MEDS: METHENAMINE HIPPURATE 1 GM TAB PO SCH (20:33)
[2024-02-12] MEDS: rOPINIRole HCL 2 MG TABLET PO SCH (20:33)
[2024-02-12] MEDS: carvediloL 6.25 MG TAB PO SCH (20:33)
[2024-02-12] MEDS: MAGNESIUM OXIDE 400 MG TAB PO SCH (20:33)
[2024-02-12] MEDS: MICONAZOLE NITRATE POWDER 85 GM EXT SCH (21:02)
[2024-02-12] MEDS: DICLOFENAC SOD 1% GEL 100 GM TUBE EXT SCH (21:03)
[2024-02-12] MEDS: INSULIN ASPART PER UNIT CHARGE SC SCH (21:09)
--- NOTE | 2024-02-12 21:36 | Palliative Care Consultation ---
Date of Consultation February 12, 2024 Assessment & Plan (1) Acute UTI: (2) Bacteremia: (3) ESBL (extended spectrum beta-lactamase) producing bacteria infection: (4) Goals of care, counseling/discussion: (5) Confusion: (6) Lethargy: Plan Met with pt at bedside, she was drowsy but arousable and confused. Introduced pt to concept of Palliative care services. Pt shared that she is very tired and request to delay any further discussion until tomorrow when her HCPOA/brother is available. I will revisit [facility] with patient and family tomorrow. medical management per primary. History of Present Illness Reason for Consultation: goals of care Requesting Physician: Emmett Burris MD Attending Physician: Emmett Burris MD History of Present Illness This is an 83 yo female with PMH of RA, CKD, DVT, NSTEMI, DVT, Recurrent ESBL E. coli sepsis/bacteremia/UTI. She presents to ED after several days of progressive lethargy, cough, sore throat, rhinorrhea, and fevers at her SNF. She was recently prescribed stress does steroids and ertapenem for 2 weeks, began 01/30 to finish 02/17. Of note, patient had a recent discussion with SNF staff about possible transition to comfort care, but ultimately requested transfer to the hospital for treatment. Allergies Allergy/AdvReac Type Severity Reaction Status Date / Time aspirin Allergy Severe ANAPHYLAXIS Verified 01/10/24 18:45 duloxetine [From Cymbalta] Allergy Intermediate Rash Verified 01/10/24 18:45 NSAIDS (Non-Steroidal Allergy Unknown Verified 01/10/24 18:45 Anti-Inflamma lisinopril AdvReac Intermediate Cough Verified 01/10/24 18:45 Home Medications Medication Instructions Recorded Confirmed Type acetaminophen 325 mg tablet 650 mg PO Q6 PRN Fever Or Pain 09/28/23 02/12/24 History (Tylenol) brimonidine 0.2 %-timolol 0.5 % 1 drp OPB BID 09/28/23 02/12/24 History eye drops bumetanide 2 mg tablet 2 mg PO QAM 09/28/23 02/12/24 History calcium carbonate 1,000 mg PO Q2H PRN Heartburn 09/28/23 02/12/24 History carboxymethylcellulose sodium 1 % 1 drp OPL Q6H PRN DRYNESS/WATERING 09/28/23 02/12/24 History eye drops (Artificial Tears (carboxymethylcellulose)) famotidine 10 mg tablet 10 mg PO HS 09/28/23 02/12/24 History levothyroxine 75 mcg tablet 75 mcg PO QAM 09/28/23 02/12/24 History magnesium oxide 500 mg PO HS 09/28/23 02/12/24 History ondansetron HCl 4 mg tablet 4 mg PO Q6H PRN Nausea 09/28/23 02/12/24 History pantoprazole 40 mg tablet,delayed 40 mg PO DAILY 09/28/23 02/12/24 History release ropinirole 2 mg tablet 2 mg PO HS 09/28/23 02/12/24 History amlodipine 10 mg tablet 10 mg PO DAILY #10 tabs 10/03/23 02/12/24 Rx carvedilol 6.25 mg tablet 6.25 mg PO BID 10/23/23 02/12/24 History venlafaxine 150 mg 150 mg PO UD 10/23/23 02/12/24 History capsule,extended release 24 hr apixaban 2.5 mg tablet (Eliquis) 2.5 mg PO BID #0 tabs 10/30/23 02/12/24 Rx folic acid 1 mg tablet 1 mg PO QAM #0 tabs 10/30/23 02/12/24 Rx loratadine 5 mg-pseudoephedrine ER 1 tab PO Q12H PRN allergy symptoms 10/30/23 02/12/24 Rx 120 mg tablet,extended #0 tabs release,12hr (Claritin-D 12 Hour) sennosides 8.6 mg tablet (Senokot) 8.6 mg PO QAM #0 tabs 10/30/23 02/12/24 Rx diclofenac sodium 1 % topical gel 0 g topical QID 12/04/23 02/12/24 History prednisone 20 mg tablet 20 mg PO QAM 12/04/23 02/12/24 History pregabalin 75 mg capsule 75 mg PO TID 12/04/23 02/12/24 History venlafaxine 37.5 mg 37.5 mg PO UD depression 12/04/23 02/12/24 History capsule,extended release 24 hr polyethylene glycol 3350 17 gram 17 g PO QAM 01/10/24 02/12/24 History oral powder packet (Miralax) polysaccharide iron complex 150 mg 150 mg PO DAILY 01/10/24 02/12/24 History iron capsule (Ferrex) potassium chloride 20 mEq 20 meq PO TID 01/10/24 02/12/24 History tablet,extended release(part/cryst) ertapenem 1 gram solution for 1 g IV DAILY #4 ea 01/15/24 02/12/24 Rx injection ascorbic acid (vitamin C) 1,000 mg 1 g PO QAM 02/12/24 02/12/24 History tablet (Vitamin C) bisacodyl 10 mg rectal suppository 10 mg LA DAILY PRN Constipation 02/12/24 1 04/14/23 History (Dulcolax (bisacodyl)) cyanocobalamin (vitamin B-12) 1,000 mcg PO QAM 02/12/24 02/12/24 History 1,000 mcg tablet (Vitamin B-12) latanoprost 0.005 % eye drops 1 drp OPB HS 02/12/24 02/12/24 History lidocaine HCl 10 mg/mL (1 %) See Rx Instructions .Route .COMPLEX 02/12/24 02/12/24 History injection solution magnesium hydroxide 400 mg/5 mL See Rx Instructions .Route .COMPLEX 02/12/24 02/12/24 History oral suspension (Milk of Magnesia) methenamine hippurate 1 gram tablet 1 g PO BID 02/12/24 02/12/24 History methylprednisolone sod suc(PF) 125 62.5 mg IM QAM 02/12/24 02/12/24 History mg/2 mL solution for injection (Solu-Medrol (PF)) morphine concentrate 100 mg/5 mL 10 mg PO Q1H PRN Pain 02/12/24 02/12/24 History (20 mg/mL) oral solution nystatin 100,000 unit/gram topical 1 applic topical BID 02/12/24 02/12/24 History powder promethazine 25 mg/mL injection 25 mg IM Q6H PRN Nausea And 02/12/24 02/12/24 History solution Vomiting sodium phosphates 19 gram-7 118 ml LA DAILY PRN Constipation 02/12/24 02/12/24 History gram/118 mL enema (Fleet Enema) Patient History Medical History Thrombocytopenia Sepsis Gram-negative bacteremia Streptococcal bacteremia Community acquired pneumonia Metabolic encephalopathy DVT (deep venous thrombosis) Non-ST elevation MA (NSTEMI) [facility] resident resident of [facility] Dysphagia Gait abnormality Low back pain Personal history of venous thrombosis and embolism Other intestinal Escherichia coli infections Cognitive communication deficit Adult failure to thrive Herniated lumbar disc without myelopathy Left central disc herniation at L5-S1 Lumbar radiculopathy High cholesterol Anxiety Hypertension Surgical History History of total bilateral knee replacement (TKR) History of carpal tunnel release RIGHT HAND Hx of arthroscopy RIGHT KNEE (MENISCUS) Hx of tonsillectomy Hx of hysterectomy Hx laparoscopic cholecystectomy Family History Mother Family history of reaction to anesthesia SLOW TO AWAKEN Social History Smoking Status: Never smoker Second Hand Exposure: No; Do You Dip or Chew Tobacco: No; Hx Alcohol Use: Yes Alcohol type: hard liquor Hx Substance Use: No Preferred Language: Samoan Communication Ability: Effective Communication Ability Comment: Pt disoriented, but able to communicate needs Visual Impairment: No Limitations Drawing Tracer Required: No Beliefs That Will Affect Care: None marital status: Single Current Living Situation: Intermediate Current Living Situation Comment: [facility] How many Children do You have: 0 Feels Safe at Home: Yes Safety Concerns: Feels Safe At This Time Assistive Devices: Glasses Review of Systems Review of Systems: reviewed, per HPI Physical Exam Physical Exam: Pt awake and alert, lethargic. NAD on RA Constitutional: + ill appearing, + altered mental status and + lethargic Eyes: PERRL, conjunctivae normal, anicteric sclerae Respiratory: normal respiratory effort and + cough; no respiratory distress Cardiovascular: Rate/Rhythm: regular rate and regular rhythm Heart Sounds: normal S1 and normal S2 Extremities: normal capillary refill and + edema Gastrointestinal (Abdomen): normal bowel sounds, soft, nontender, no hepatosplenomegaly Musculoskeletal: no cyanosis or clubbing, extremities motor strength 5/5 generalized weakness Neurologic: moves all extremities, awake and + confused A&Ox3, pt confused, reorients with prompting Results & Data Vital Signs (Past 12 Hours) Vital Signs Pulse Pulse Resp BP Pulse Ox O2 Del Method 02/12/24 18:00 82 14 174/86 H 97 Room Air 02/12/24 16:00 86 18 171/91 H 99 Room Air 02/12/24 14:00 82 18 147/70 H 99 Room Air 02/12/24 12:16 89 02/12/24 12:00 87 18 177/89 H 95 Room Air 02/12/24 09:39 85 18 157/76 H 93 Room Air Laboratory Results Abnormal lab results 02/12/24 02/12/24 02/12/24 Range/Units 08:00 08:20 11:23 WBC 17.21 H (4.8-10.8) K/ul RBC 2.77 L (4.20-5.40) M/uL Hgb 8.4 L (12.0-16.0) g/dl POC Hgb 8.8 L (12.0-16.0) g/dl Hct 26.3 L (37.0-47.0) % POC Hct 26 L (37-47) % MCHC 31.9 L (32.0-36.0) g/dL RDW Std Deviation 63.3 H (36.4-46.3) fL RDW Coeff of Mario 18.2 H (11.5-14.5) % Neut # (Auto) 14.86 H (1.40-6.50) K/uL Lymph # (Auto) 0.62 L (1.20-3.40) K/uL Trigg # (Auto) 1.21 H (0.11-0.59) K/uL Immature Gran # (Auto) 0.49 H (0.01-0.20) K/uL VBG pH (7.36-7.41) POC Anion Gap 13.0 L (16-25) mmol/L POC BUN 57 H (7-18) mg/dl BUN 60 H (6-23) mg/dl Creatinine 1.62 H (0.6-1.2) mg/dl POC Creatinine 1.7 H (0.6-1.3) mg/dl BUN/Creatinine Ratio 37.0 H (10-20) Glucose 332 H* (70-99(Fasting)) mg/dl POC Glucose (70-99) mg/dl POC Glucose (other) 332 H (70-99) mg/dl Osmolality 328 H (280-300) mOsm/kg Lactate 3.3 H* (0.4-2.0) mmol/L Calcium 8.2 L (8.6-10.3) mg/dl POC Ioniz Calcium Marah 1.01 L (1.12-1.32) mmol/l Magnesium 3.2 H (1.7-2.4) mg/dl AST 12 L (13-39) U/L Total Protein 5.7 L (6.0-8.3) gm/dl Albumin 3.2 L (3.4-5.0) gm/dl TSH 0.029 L (0.300-4.500) uIu/ml Urine Protein Trace H (Negative) Urine Glucose (UA) 3+ H (Negative) Ur Leukocyte Esterase 1+ H (Negative) Urine WBC (Auto) 11-20 H (0-5) /hpf Urine RBC (Auto) 6-10 H (0-2) /hpf Urine Yeast Present A (None Prsent) 02/12/24 02/12/24 02/12/24 Range/Units 11:42 14:10 19:21 WBC (4.8-10.8) K/ul RBC (4.20-5.40) M/uL Hgb (12.0-16.0) g/dl POC Hgb (12.0-16.0) g/dl Hct (37.0-47.0) % POC Hct (37-47) % MCHC (32.0-36.0) g/dL RDW Std Deviation (36.4-46.3) fL RDW Coeff of Mario (11.5-14.5) % Neut # (Auto) (1.40-6.50) K/uL Lymph # (Auto) (1.20-3.40) K/uL Trigg # (Auto) (0.11-0.59) K/uL Immature Gran # (Auto) (0.01-0.20) K/uL VBG pH 7.52 H (7.36-7.41) POC Anion Gap (16-25) mmol/L POC BUN (7-18) mg/dl BUN (6-23) mg/dl Creatinine (0.6-1.2) mg/dl POC Creatinine (0.6-1.3) mg/dl BUN/Creatinine Ratio (10-20) Glucose (70-99(Fasting)) mg/dl POC Glucose (70-99) mg/dl POC Glucose (other) (70-99) mg/dl Osmolality (280-300) mOsm/kg Lactate 5.2 H* 3.6 H* (0.4-2.0) mmol/L Calcium (8.6-10.3) mg/dl POC Ioniz Calcium Marah (1.12-1.32) mmol/l Magnesium (1.7-2.4) mg/dl AST (13-39) U/L Total Protein (6.0-8.3) gm/dl Albumin (3.4-5.0) gm/dl TSH (0.300-4.500) uIu/ml Urine Protein (Negative) Urine Glucose (UA) (Negative) Ur Leukocyte Esterase (Negative) Urine WBC (Auto) (0-5) /hpf Urine RBC (Auto) (0-2) /hpf Urine Yeast (None Prsent) 02/12/24 Range/Units 20:47 WBC (4.8-10.8) K/ul RBC (4.20-5.40) M/uL Hgb (12.0-16.0) g/dl POC Hgb (12.0-16.0) g/dl Hct (37.0-47.0) % POC Hct (37-47) % MCHC (32.0-36.0) g/dL RDW Std Deviation (36.4-46.3) fL RDW Coeff of Mario (11.5-14.5) % Neut # (Auto) (1.40-6.50) K/uL Lymph # (Auto) (1.20-3.40) K/uL Trigg # (Auto) (0.11-0.59) K/uL Immature Gran # (Auto) (0.01-0.20) K/uL VBG pH (7.36-7.41) POC Anion Gap (16-25) mmol/L POC BUN (7-18) mg/dl BUN (6-23) mg/dl Creatinine (0.6-1.2) mg/dl POC Creatinine (0.6-1.3) mg/dl BUN/Creatinine Ratio (10-20) Glucose (70-99(Fasting)) mg/dl POC Glucose 250 H (70-99) mg/dl POC Glucose (other) (70-99) mg/dl Osmolality (280-300) mOsm/kg Lactate (0.4-2.0) mmol/L Calcium (8.6-10.3) mg/dl POC Ioniz Calcium Marah (1.12-1.32) mmol/l Magnesium (1.7-2.4) mg/dl AST (13-39) U/L Total Protein (6.0-8.3) gm/dl Albumin (3.4-5.0) gm/dl TSH (0.300-4.500) uIu/ml Urine Protein (Negative) Urine Glucose (UA) (Negative) Ur Leukocyte Esterase (Negative) Urine WBC (Auto) (0-5) /hpf Urine RBC (Auto) (0-2) /hpf Urine Yeast (None Prsent) Diagnostic Findings Chest X-Ray 02/12/24 08:06 XR chest 1V portable CLINICAL HISTORY: weakness COMPARISON STUDY: Chest CT October 23, 2023. Chest radiograph January 10, 2024. FINDINGS: Mild elevation of the right hemidiaphragm is unchanged. There is no pneumothorax or pleural effusion. Multiple old right upper rib fractures are again noted. Cardiomegaly is unchanged. There is no evidence for pulmonary edema. A hiatal hernia is again noted. Linear right lower lung densities favor scarring. There is no consolidation to suggest pneumonia. IMPRESSION: No acute cardiopulmonary findings. No significant change in appearance of the chest. ACT 112: Negative or not required by law. Electronically signed by: Shivam Ward M.D. 02/12/2024 8:41 AM Abdomen/Pelvis CT 02/12/24 09:57 CT OF THE ABDOMEN AND PELVIS WITHOUT CONTRAST CLINICAL HISTORY: Altered mental status. COMPARISON STUDY: CT of the abdomen and pelvis January 10, 2024. TECHNIQUE: Axial images of the abdomen and pelvis were obtained without IV contrast. Images were reviewed in the axial, sagittal, and coronal planes. Automated exposure control was utilized for the study. A dose lowering technique was utilized adhering to the principles of ALARA. FINDINGS: Secretions within the right lower lobe bronchi are better depicted on the chest CT. Right lower lobe and right middle lobe airspace opacities have increased since CT of January 10, 2024. There is a moderate sized hiatal hernia. No pneumatosis, free air or portal venous gas is present. There is no significant biliary ductal dilatation status post cholecystectomy. Spleen, adr enal glands, kidneys and pancreas are unremarkable on unenhanced exam. No hydronephrosis. There are no urinary calculi. There is no pancreatic ductal dilatation. A moderate amount of stool within the colon and rectum is present. There is extensive colonic diverticulosis without evidence for acute diverticulitis. There is no evidence for a bowel obstruction. There are no fluid collections. The appendix is normal. There is no lymphadenopathy. Old L2 compression fracture is unchanged. No acute fractures. Severe multilevel degenerative changes within the lumbar spine are incidentally noted. Mild b ladder wall thickening is unchanged. There are several bladder diverticula. IMPRESSION: 1. No urinary calculi or hydronephrosis. Bladder wall thickening, similar to prior exam. This could be correlated with urinalysis. 2. No bowel obstruction. Moderate amount of stool within the colon and rectum. 3. Extensive colonic diverticulosis. No evidence for acute diverticulitis. 4. Secretions within the right lower lobe bronchi with right lower lobe and right middle lobe airspace opacities which have developed since prior CT. The findings may reflect pneumonia or aspiration pneumonitis. ACT 112: Negative or not required by law. Electronically signed by: Shivam Ward M.D. 02/12/2024 10:[address] 02/12/24 09:57 CT chest diagnostic wo con CLINICAL HISTORY: 83 years-old Female with sepsis. Acute sepsis TECHNIQUE: Multiaxial CT images of the chest were performed without contrast. A dose lowering technique was utilized adhering to the principles of ALARA. COMPARISON: CT abdomen and pelvis of same day, chest radiograph of same day chest CT 10/23/2023 FINDINGS: No dominant thyroid nodule or lymphadenopathy. Borderline enlarged heart. No pericardial effusion. Moderate coronary artery calcifications. No thoracic aortic aneurysm. Trace pleural effusions. Right lower lobe predominant mucous plugging with linear right alveolar consolidation. Patchy multifocal tree-in-bud nodules of the right lung base. Mild subsegmental left basilar atelectasis. 3 mm solid nodule within the apical posterior segment left upper lobe is unchanged. 3 mm solid nodules in the right lung apex is also likely stable. Mid to distal esophageal wall thickening with moderate sized hiatal hernia. Cholecystectomy. Colonic diverticulosis. Degenerative changes of the shoulders and spine. Healed chronic fracture lateral right third rib. No acute fracture identified. IMPRESSION: 1. Findings suggestive of aspiration pneumonitis with right lower lobe predominant mucous plugging, linear consolidation with tree-in-bud nodules/bronchiolitis. 2. Mid to distal esophageal wall thickening with moderate sized hiatal hernia. 3. No lymphadenopathy. ACT 112: Negative or not required by law. Electronically signed by: Nic Winters M.D. 02/12/2024 10:[address] 02/12/24 09:57 CT OF THE HEAD WITHOUT CONTRAST CLINICAL HISTORY: Sepsis. COMPARISON STUDY: Head CT January 10, 2024) MRA brain January 22, 2024. CT DOSE: 1368.71 mGy.cm TECHNIQUE: Helical axial images of the head were obtained without IV contrast. Automated exposure control was utilized for the study. A dose lowering technique was utilized adhering to the principles of ALARA. FINDINGS: No acute intracranial hemorrhage, midline shift or mass effect is present. The ventricular system is stable. Basal cisterns are patent. There are no extra-axial collections. White matter hypodensity suggests small vessel disease. These are unchanged. A 1 cm hypodensity within the right cerebellar hemisphere on image 6 of is present. There is a possible corresponding old infarct on MRI of January 22, 2024. However, this finding remains age indeterminate. IMPRESSION: 1. No acute intracranial hemorrhage or mass effect. 2. 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 ACT 112: Negative or not required by law. Electronically signed by: Shivam Ward M.D. 02/12/2024 10:35 AM Shoulder X-Ray 02/12/24 13:02 XR shoulder LT min 2V routine CLINICAL HISTORY: Left shoulder pain. COMPARISON: None FINDINGS: There are no fractures within the left shoulder. Elevation of the left humeral head with narrowing of the subacromial space is noted. There is severe glenohumeral joint space narrowing as well as moderate joint space narrowing and osteophytosis of the acromioclavicular joint. IMPRESSION: 1. No fractures within the left shoulder. 2. Severe osteoarthritis within the left shoulder. 3. Elevation of the left humeral head suggestive of a chronic rotator cuff tear. ACT 112: Negative or not required by law. Electronically signed by: Shivam Ward M.D. 02/12/2024 1:50 PM Medications Administered Current Inpatient Medications Acetaminophen (Acetaminophen 325 Mg Tab) 650 mg PO Q6 PRN PRN Reason: Fever Or Pain Stop: 03/13/24 14:50 Amlodipine Besylate (Amlodipine Besylate 5 Mg Tab) 10 mg PO DAILY [facility] Stop: 03/14/24 08:59 Apixaban (Apixaban 2.5 Mg Tab) 2.5 mg PO BID [facility] Stop: 03/13/24 20:59 Last Admin: 02/12/24 20:32 Dose: 2.5 mg Artificial Tears (Artificial Tears) 1 drops OPL Q6H PRN PRN Reason: DRYNESS/WATERING Stop: 03/13/24 18:44 Ascorbic Acid (Ascorbic Acid 500 Mg Tab) 1,000 mg PO QAM [facility] Stop: 03/14/24 08:59 Brimonidine Tartrate (Brimonidine Tartrate 0.2% 5ml) 1 drops OPB BID [facility] Stop: 03/13/24 20:59 Last Admin: 02/12/24 20:32 Dose: 1 drops Calcium Carbonate (Calcium Carbonate 500 Mg Chewable Tab) 1,000 mg PO Q2H PRN PRN Reason: Heartburn Stop: 03/13/24 15:25 Carvedilol (Carvedilol 6.25 Mg Tab) 6.25 mg PO BID [facility] Stop: 03/13/24 20:59 Last Admin: 02/12/24 20:33 Dose: 6.25 mg Cyanocobalamin (Cyanocobalamin (B-12) 500 Mcg Tablet) 1,000 mcg PO QAM [facility] Stop: 03/14/24 08:59 Dextrose (Dextrose 50% 50 Ml Syringe) 25 - 50 ml IV UD PRN; Protocol PRN Reason: Hypoglycemia Protocol Stop: 03/13/24 18:42 Diclofenac Sodium (Diclofenac Sod 1% Gel 100 Gm Tube) 2 gm EXT QID [facility]; Protocol Stop: 03/13/24 20:59 Last Admin: 02/12/24 21:03 Dose: 2 gm Famotidine (Famotidine 10 Mg Tablet) 10 mg PO HS [facility] Stop: 03/13/24 20:59 Last Admin: 02/12/24 20:32 Dose: 10 mg Folic Acid (Folic Acid 1 Mg Tab) 1 mg PO QAM [facility] Stop: 03/14/24 08:59 Glucagon (Glucagon For Inj 1 Mg Vial) 1 mg SQ UD PRN; Protocol PRN Reason: Hypoglycemia Protocol Stop: 03/13/24 18:42 Glucose (Glucose 40% Gel 15 Gm Tube) 15 - 30 gm PO UD PRN; Protocol PRN Reason: Hypoglycemia Protocol Stop: 03/13/24 18:42 Glucose (Glucose 10 Tab/Tube) 4 - 8 tab PO UD PRN; Protocol PRN Reason: Hypoglycemia Protocol Stop: 03/13/24 18:42 Meropenem 500 mg/ Syringe 10 mls @ 2 mls/min IV Q8H [facility]I; Protocol Stop: 02/17/24 19:59 Last Admin: 02/12/24 19:28 Dose: 2 mls/min Parenteral Electrolytes (Plasma-Lyte A Ph 7.4) 1,000 mls @ 80 mls/hr IV .[id number] [facility] Stop: 02/13/24 08:29 Last Admin: 02/12/24 20:30 Dose: 80 mls/hr Insulin Aspart (Insulin Aspart Per Unit Charge) 0 units SC ACHS [facility] Stop: 03/13/24 20:59 Last Admin: 02/12/24 21:09 Dose: 3 units Latanoprost (Latanoprost 0.005% Op Soln 2.5 Ml Btl) 1 drops OPB HS [facility] Stop: 03/13/24 20:59 Last Admin: 02/12/24 20:30 Dose: 1 drops Levothyroxine Sodium (Levothyroxine Sodium 75 Mcg Tablet) 75 mcg PO DAILYBB [facility] Stop: 03/14/24 06:29 Magnesium Oxide (Magnesium Oxide 400 Mg Tab) 400 mg PO HS [facility] Stop: 03/13/24 20:59 Last Admin: 02/12/24 20:33 Dose: 400 mg Methenamine Hippurate (Methenamine Hippurate 1 Gm Tab) 1 gm PO BID [facility] Stop: 02/17/24 20:59 Last Admin: 02/12/24 20:33 Dose: 1 gm Miconazole Nitrate (Miconazole Nitrate Powder 85 Gm) 1 appln EXT PRN [facility] Stop: 03/13/24 19:14 Last Admin: 02/12/24 21:02 Dose: 1 appln Miscellaneous (Carbohydrates For Hypoglycemia ) 15 - 30 gm PO UD PRN PRN Reason: Hypoglycemia Protocol Stop: 03/13/24 18:42 Pantoprazole Sodium (Pantoprazole 40 Mg Tab) 40 mg PO DAILY [facility] Stop: 03/14/24 08:59 Polyethylene Glycol (Polyethylene (Miralax) 17 Gm Pack) 17 gm PO DAILY PRN PRN Reason: Constipation Stop: 03/13/24 19:34 Last Admin: 02/12/24 20:31 Dose: 17 gm Polysaccharide Iron Complex (Iron Polysaccharide Complex 150 Mg Capsule) 150 mg PO DAILY [facility] Stop: 03/14/24 08:59 Potassium Chloride (Potassium Chloride Crtab 20 Meq Tabcr) 20 meq PO TID [facility] Stop: 03/13/24 14:50 Last Admin: 02/12/24 20:31 Dose: 20 meq Prednisone (Prednisone 20 Mg Tab) 20 mg PO QAM [facility] Stop: 03/14/24 08:59 Pregabalin (Pregabalin 75 Mg Cap) 75 mg PO TID [facility] Stop: 03/13/24 14:50 Last Admin: 02/12/24 20:31 Dose: 75 mg Ropinirole HCl (Ropinirole Hcl 2 Mg Tablet) 2 mg PO HS [facility] Stop: 03/13/24 20:59 Last Admin: 02/12/24 20:33 Dose: 2 mg Sennosides (Senna 8.6 Mg Tab) 8.6 mg PO QAM [facility] Stop: 03/14/24 08:59 Timolol Maleate (Timolol Maleate 0.5% Op Soln 5 Ml Btl) 1 drops OPB BID [facility] Stop: 03/13/24 20:59 Last Admin: 02/12/24 20:31 Dose: 1 drops Venlafaxine HCl (Venlafaxine Hcl Xr 150 Mg Capxr) 150 mg PO QAM [facility] Stop: 03/14/24 08:59 Venlafaxine HCl (Venlafaxine Hcl Xr 37.5 Mg Capxr) 37.5 mg PO QAM [facility] Stop: 03/14/24 08:59 PG Care Time/CCT Total # of Minutes Spent Total Time Spent with Patient: Total time spent is greater than 50% in coordination of care (as documented) at patient's floor/unit and/or counseling patient: [place] [address] INT INP/OBS CARE 2/55MIN Patient Type New History Problem Focused Exam Problem Focused Medical Decision Making Moderate Complexity Diagnoses Acute UTI N39.0 Bacteremia R78.81 ESBL (extended spectrum beta-lactamase) producing bacteria infection A49.9; Z16.12 Goals of care, counseling/discussion Z71.89 Confusion R41.0 Lethargy R53.83
[2024-02-13] MEDS: LEVOTHYROXINE SODIUM 75 MCG TABLET PO SCH (05:10)
[2024-02-13 07:30] LABS: Basophils # (auto) 0.01 K/uL (0.00-0.20); Basophils % (auto) 0.1 %; Eosinophils # (auto) 0.05 K/uL (0.00-0.50); Eosinophils % (auto) 0.4 %; Hematocrit (blood only) 25.3 % (37.0-47.0); Hemoglobin 7.8 g/dl (12.0-16.0); Immature Granulocytes # (auto) 0.33 K/uL (0.01-0.20); Immature Granulocytes % (auto) 2.5 %; Lymphocytes # (auto) 1.03 K/uL (1.20-3.40); Lymphocytes % (auto) 7.7 %; Mean Corpuscular Hemoglobin 30.4 pg (25.0-34.0); Mean Corpuscular Hgb Conc 30.8 g/dL (32.0-36.0); Mean Corpuscular Volume 98.4 fL (80.0-100.0); Mean Platelet Volume 10.9 fL (9.4-12.4); Monocytes # (auto) 0.92 K/uL (0.11-0.59); Monocytes % (auto) 6.9 %; Neutrophils # (auto) 10.97 K/uL (1.40-6.50); Neutrophils % (auto) 82.4 %; Nucleated RBC % (auto) 0.8 %; Platelet Count 188 K/uL (130-400); RDW Coefficient of Variation 18.4 % (11.5-14.5); RDW Standard Deviation 65.5 fL (36.4-46.3); Red Blood Count 2.57 M/uL (4.20-5.40); White Blood Count 13.31 K/ul (4.8-10.8)
[2024-02-13 07:39] LABS: Estimated Average Glucose 137 mg/dl; Hemoglobin A1C 6.4 % (4.5-5.6)
[2024-02-13 07:53] LABS: BUN Creatinine Ratio 31.9 (10-20); Calcium 7.9 mg/dl (8.6-10.3); Creatinine Clr Calc Pharmacy 35.1 ml/min; Magnesium 2.9 mg/dl (1.7-2.4)
[2024-02-13] MEDS: PANTOprazole 40 MG TAB PO SCH (09:12)
[2024-02-13] MEDS: predniSONE 20 MG TAB PO SCH (09:12)
[2024-02-13] MEDS: amLODIPine BESYLATE 5 MG TAB PO SCH (09:12)
[2024-02-13] MEDS: FOLIC ACID 1 MG TAB PO SCH (09:13)
[2024-02-13] MEDS: ASCORBIC ACID 500 MG TAB PO SCH (09:13)
[2024-02-13] MEDS: VENLAFAXINE HCL XR 150 MG CAPXR PO SCH (09:13)
[2024-02-13] MEDS: CYANOCOBALAMIN (B-12) 500 MCG TABLET PO SCH (09:13)
[2024-02-13] MEDS: VENLAFAXINE HCL XR 37.5 MG CAPXR PO SCH (09:13)
[2024-02-13] MEDS: SENNA 8.6 MG TAB PO SCH (09:18)
[2024-02-13] MEDS: DEXTROSE 5% 500 ML IV SCH (09:21)
[2024-02-13 10:37] LABS: Ferritin 443.5 ng/ml (8-388)
[2024-02-13 11:12] LABS: Folate (Folic Acid),Ser orPlas > 22.30 ng/ml (>5.38)
[2024-02-13 11:13] LABS: Vitamin B12 > 1500 pg/ml (180-914)
[2024-02-13] MEDS: IRON POLYSACCHARIDE COMPLEX 150 MG CAPSULE PO SCH (12:29)
--- NOTE | 2024-02-13 12:35 | Hospitalist Progress Note ---
Date of Service February 13, 2024 Assessment & Plan (1) Aspiration pneumonia: Plan: patient with history of ESBL E. coli/sepsis/bacteremia/recurrent UTIs -> currently undergoing course of ertapenem x 2 weeks Presents with fatigue, cough, sore throat, rhinorrhea after being started on oral liquid morphine for comfort measures last week. Likely aspirated due to lethargy from opioids CT chest showing aspiration pneumonitis with RLL predominant mucous plugging, linear consolidation with tree-in-bud modules/bronchiolitis Leukocytosis with left shift, WBC 17.21, lactate 3.3 -> 5.2 and then back down to 3 No hypoxemia, VBG consistent with likely mixed acute respiratory alkalosis on chronic respiratory acidosis Repeat urinalysis more consistent with possible contamination-Gayle growing which is not a pathogen and likely from contamination from the vaginal jose francisco Was started on meropenem but okay to resume ertapenem which covers both her ESBL E. coli from the previous UTI and bacteremia, but also covers for anaerobes and aspiration pneumonia MRSA swab negative -no need for MRSA coverage Was given IV fluids on admission for dehydration Continue incentive spirometry Follow blood cultures-no growth to date Seen by speech therapy-video swallow 01/10/24 showed penetration and scant silent aspiration of thin via straw and noted esophageal dysmotility with retrograde motion that is likely reentering the pharyngeal cavity likely the etiology of PNA-recommending mouth care, no straws, easy to chew, thin liquids, aspiration and reflux precautions Speech recommends to defer repeat video swallow at this time Discontinued liquid morphine for now as she does not desire comfort care at this time (2) Chronic kidney disease, stage IV (severe): Plan: Mild DENNIS on CKD stage IV-Cr 1.7 on admission (baseline 1.2) and now improved after IV fluids down to 1.19 Continue to avoid nephrotoxic agents Will trend BMP (3) Hypernatremia: Plan: Sodium 147 and likely higher than that when corrected for hyperglycemia She has not been drinking much free water since she has been on comfort measures with morphine Give 500 mL of D5W Follow BMP Provide access to free water (4) Anemia: Plan: Hemoglobin severely low but has been for a long time at 7-8 Iron studies, B12, folate all normal. No evidence of bleeding Likely anemia of chronic disease given rheumatoid arthritis, chronic kidney disease Follow CBC (5) Rheumatoid arthritis: Plan: On stress dose steroids prior to admission- Solu-Medrol 62.5 mg + prednisone 20 mg daily on admission from [facility] Was increased from usual 5mg daily to 20mg daily on discharge from hospital in 11/2023 and never decreased back down Follows with Dr. Yanez at [facility] Wean down prednisone to 15mg daily tomorrow. BPs normal and no need for stress steroids currently Continue Lyrica (6) Hyperglycemia: Plan: Hyperglycemia: secondary to steroid use-glucose in the 300s at times likely due to recent stress dosed steroids Giving 500 mL of D5W for hypernatremia from free water deficit-monitor carefully and will increase insulin dosing to control blood sugars Discontinued stress dose steroids and weaning prednisone 50 mg daily as above Hemoglobin A1c in prediabetes range at 6.4% (7) ESBL (extended spectrum beta-lactamase) producing bacteria infection: Plan: History of recurrent UTIs, bacteremia, and sepsis and recently discharged on IV ertapenem Switch meropenem back to IV ertapenem to finish out course on 02/17 CT A/P showing bladder wall thickening but no hydronephrosis or stones. UA here contaminated, urine culture with Gayle-no need for treatment continue methenamine Has had recurrent ESBL E. coli bacteremia which is odd but no source found other than urine on previous hospitalizations (8) Left shoulder pain: Plan: History of RA Left shoulder pain x 1 week; denies trauma to shoulder XR showing no fxs, severe osteoarthritis, elevation of left humeral head suggestive of chronic rotator cuff tear Continue Tylenol prn, voltaren gel, continue prednisone for RA Stop liquid morphine from home and resume oxycodone as needed which she has been on for years (9) HTN (hypertension): Plan: BP is mildly elevated Continue to hold previous hydralazine, Bumex, and losartan for DENNIS Okay to continue amlodipine, carvedilol (10) Wound of foot: Plan: 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), chronic, see images in chart Tylenol prn wound care daily (11) Hypothyroidism: Plan: TSH decreased (0.029) continue Levothyroxine same dose for now, follow when not acutely ill (12) History of CVA (cerebrovascular accident): Plan: Seen on head CT here in the right cerebellum Unsure if patient aware of this Continue apixaban She is allergic to aspirin Unclear history Plan Chronic stable diagnoses: Hx DVT - continue Eliquis Pulm HTN-Echo 09/30/23 EF 55 to 60%, borderline LVH, severe pulmonary hypertension GERD - continue Pepcid and pantoprazole depression - continue venlafaxine RLS-continue ropinirole VTE ppx: Eliquis Code status: DNR/DNI Dispo: Med/tele , consult PT/OT Patient with recurrent infections, recent decline, and confusion - as per staff at [facility] - patient considered comfort measures 02/11/24 but then patient changed her mind and came to the hospital for treatment Discussed care with her brother and [id number] on the phone-plan to have palliative on Sunday if they can be present versus phone conversation Admission and Anticipated Discharge Date Admission Date: February 12, 2024 Subjective Patient seems to be less drowsy. She has been taking liquid morphine the last week while on comfort care at the [facility]. This has made her excessively tired and drowsy. She has chronic pain in her feet and legs from neuropathy. Denies abdominal pains. Is eating a little bit today. I discussed her care with her brother and [id number] on the phone I discussed her care with palliative medicine [employer] Telemetry with normal sinus rhythm with rates in the 70s to 80s Physical Exam Constitutional: average body habitus; no acute distress Eyes: + anicteric sclerae Respiratory: normal respiratory effort; no cough Auscultation: + diminished lung sounds (Right base); no crackles and no rhonchi Cardiovascular: Rate/Rhythm: regular rate and regular rhythm Heart Sounds: no murmur Extremities: + edema (1+ pitting edema legs bilaterally) Gastrointestinal (Abdomen): normal bowel sounds, soft, nontender, no hepatosplenomegaly Psychiatric: Orientation: alert, oriented to person, oriented to place and cooperative Results & Data Results & Data Vital Signs (Past 12 Hours) Vital Signs Temp Pulse Pulse Resp BP Pulse Ox O2 Del Method 02/13/24 12:14 36.6 C 85 18 134/75 93 Room Air 02/13/24 08:17 36.5 C 76 18 156/72 H 97 Room Air 02/13/24 07:30 Room Air 02/13/24 07:00 77 02/13/24 03:38 36.8 C 74 20 147/73 H 94 Room Air Laboratory Results CBC, BMP, magnesium, hemoglobin A1c, CK, VBG, TSH, free T4, B12, folate, iron studies reviewed PG Care Time/CCT Total # of Minutes Spent Total Time Spent with Patient: Total time spent is greater than 50% in coordination of care (as documented) at patient's floor/unit and/or counseling patient: Coding Level of Care Code 39530 SUB INP/OBS CARE 3/50MIN Diagnoses Aspiration pneumonia J69.0 Aspiration pneumonia type: unspecified Laterality: right Lung location: lower lobe of lung Chronic kidney disease, stage IV (severe) N18.4 Hypernatremia E87.0 Anemia D64.9 Anemia type: unspecified type Rheumatoid arthritis M06.9 Rheumatoid arthritis location: unspecified site Rheumatoid factor presence: unspecified presence Hyperglycemia R73.9 ESBL (extended spectrum beta-lactamase) producing bacteria infection A49.9; Z16.12 Left shoulder pain M25.512 HTN (hypertension) I10 Hypertension type: unspecified Wound of foot S91.309A Hypothyroidism E03.9 History of CVA (cerebrovascular accident) Z86.73 (1) Aspiration pneumonia Aspiration pneumonia type: unspecified Laterality: right Lung location: lower lobe of lung Qualified Code(s): J69.0 - Pneumonitis due to inhalation of food and vomit (4) Anemia Anemia type: unspecified type Qualified Code(s): D64.9 - Anemia, unspecified (5) Rheumatoid arthritis Rheumatoid arthritis location: unspecified site Rheumatoid factor presence: unspecified presence Qualified Code(s): M06.9 - Rheumatoid arthritis, unspecified (9) HTN (hypertension) Hypertension type: unspecified Qualified Code(s): I10 - Essential (primary) hypertension
[2024-02-13] MEDS: ERTAPENEM 1000MG 1,000 MG/10 ML SYR IV SCH (14:11)
--- NOTE | 2024-02-13 14:33 | Palliative Care Progress Note ---
Date of Service February 13, 2024 Assessment & Plan (1) Lethargy: Plan: multifactorial 2/2 poor nutrition, sleep deprivation, anemia, hypoactive delirium *Encourage sleep hygeine, mobility, day-night orientation, improve nutrition/hydration/regular continence, frequent reorientation, minimize use of antipsycotic or delirium inducing medications, encourage mental/social stimulation during daytime. *rec serial H&H and transfuse as appropriate. (2) Confusion: Plan: Likely multifactorial hypoactive delirium/confusion: Encourage sleep hygeine, mobility, day-night orientation, improve nutr ition/hydration/regular continence, frequent reorientation, minimize use of antipsycotic or delirium inducing medications, encourage mental/social stimulation during daytime. (3) Poor appetite: Plan: Pt denies nausea, early satiety, abd pain or bloating - may improve with resolution of #1-2, continue to encourage PO intake and monitor intake. (4) Goals of care, counseling/discussion: Plan Met with pt at bedside from 12:15-12:45. She is more alert today. Introduced palliative care services and helped pt understand that palliative care helps to address goals of care and manage symptoms of chronic disease and is offered in conjunction with other life prolonging therapies. Pt was able to convey a general knowledge of her PMHx, HPI, and admission course. She confirmed code status as DNR/DNI and that her brother Johnathon is who she trusts to make decisions for her if she is unable. At the time of my assessment, despite some minor confusion, she does appear to possess decisional capacity based on the ability to convey a working knowledge of her PMHx, HPI / current hospital course, and treatment options with ability and desire to make decisions based on that knowledge. This is true at the time of my assessment and may fluctuate if she has cognitive decline. Pt's chosen proxy for medical decisions is her brother Johnathon, per her spoken wishes during this and previous conversations with myself. He lives in [place] and does not drive but is available by phone. Pt states that Johnathon is aware of her wishes. She shared that she is "sick of being tired all the time". She shared that she had been considering hospice care at her SNF because she "just sleeps all the time". She shared that she has had very poor appetite, but not sure why. She attributes her poor PO intake to falling asleep during meal time, but also questions why she is so tired. She shared that she has no visitors at the SNF and that makes her not care so she just sleeps all the time, but also wants to have more energy. She has been considering transition to hospice, but said she really does not understand what hospice that would mean. Introduced hospice as a philosophy of care where the focus changes from life prolonging therapies to only those medications/interventions that would promote comfort and allow for a peaceful and dignified . Pt shared that she enjoys living at the SNF what is most important to her is b eing social and taking walks with her friends. She did share that she has not been able to walk recently because her friend no longer is healthy enough to keep her company and will likely never be able to again. She shared that this also contributes to her lack of motivation. Pt shared that her most troublesome thing lately is the progressive lethargy and her life would improve greatly if we could help her regain strength, energy, and appetite. We discussed her anemia and that she may gain energy as we correct her anemia and dehydration. Pt shared that she would want to continue along with any treatments that might give her more energy at this time. Patient again confirmed DNR/DNI but continue all other treatments. Patient gave permission to call her brother Johnathon and give him updates on her status, he is unable to visit due to distance/inability to drive. Attempt made to contact Johnathon, no answer, no VM capacity. Admission and Anticipated Discharge Date Admission Date: February 12, 2024 Subjective Assessed pt at bedside she was sitting upright eating lunch. She wa more alert today and oriented x4. She denies discomfort and only c/o of feeling very tired. VSS and in NAD on RA. Review of Systems Constitutional: + fatigue, + malaise, + weakness and + d aytime sleepiness Eyes: no problem reported Respiratory: no problem reported Cardiovascular: no problem reported Gastrointestinal: + early satiety; no abdominal pain, no h eartburn, no nausea, no vomiting and no diarrhea/loose stools Pt shared that he has been too tired to eat and falls asleep at meals Genitourinary: + decreased urination; no dysuria Musculoskeletal: generalized weakness Neurologic: + generalized weakness; no localized wea kness, no paresthesia, no headache(s), no confusion and no memory loss lethargy Psychiatric: + change in appetite and + difficulty co ncentrating; no depression, no hopelessness, no anxiety and no confusion Endocrine: + fatigue Physical Exam Physical Exam: Pt A&O x4 but will intermittently have speech inappropriate to current conversation and visual hallucinations. Constitutional: + ill appearing, + altered mental status , + frail appearing, cooperative and + lethargic; not in distress Eyes: PERRL, conjunctivae normal, anicteric sclerae Neck: trachea midline, no thyromegaly Respiratory: normal respiratory effort, lungs clear to auscultation Cardiovascular: Rate/Rhythm: regular rate and regular rhythm Vessels: no JVD Gastrointestinal (Abdomen): normal bowel sounds, soft, nontender, no hepatosplenomegaly Musculoskeletal: Extremities: extremities normal to inspection generalized weakness Neurologic: awake Pt awake and oriented x4, + visual hallucinations, intermittently inappropriate speech, confused but reorients easily. Results & Data Vital Signs (Past 12 Hours) Vital Signs Temp Pulse Pulse Resp BP Pulse Ox O2 Del Method 02/13/24 12:14 36.6 C 85 18 134/75 93 Room Air 02/13/24 08:17 36.5 C 76 18 156/72 H 97 Room Air 02/13/24 07:30 Room Air 02/13/24 07:00 77 02/13/24 03:38 36.8 C 74 20 147/73 H 94 Room Air Laboratory Results Abnormal lab results 02/12/24 02/12/24 02/12/24 Range/Units 14:10 19:21 20:47 WBC (4.8-10.8) K/ul RBC (4.20-5.40) M/uL Hgb (12.0-16.0) g/dl Hct (37.0-47.0) % MCHC (32.0-36.0) g/dL RDW Std Deviation (36.4-46.3) fL RDW Coeff of Mario (11.5-14.5) % Neut # (Auto) (1.40-6.50) K/uL Lymph # (Auto) (1.20-3.40) K/uL [place] # (Auto) (0.11-0.59) K/uL Immature Gran # (Auto) (0.01-0.20) K/uL Sodium (136-145) mmol/L Chloride (98-107) mmol/L BUN (6-23) mg/dl BUN/Creatinine Ratio (10-20) POC Glucose 250 H (70-99) mg/dl Hemoglobin A1c (4.5-5.6) % Lactate 5.2 H* 3.6 H* (0.4-2.0) mmol/L Calcium (8.6-10.3) mg/dl Magnesium (1.7-2.4) mg/dl TIBC (250-450) mcg/dl Ferritin (8-388) ng/ml Vitamin B12 (180-914) pg/ml 02/13/24 02/13/24 Range/Units 07:03 11:45 WBC 13.31 H (4.8-10.8) K/ul RBC 2.57 L (4.20-5.40) M/uL Hgb 7.8 L (12.0-16.0) g/dl Hct 25.3 L (37.0-47.0) % MCHC 30.8 L (32.0-36.0) g/dL RDW Std Deviation 65.5 H (36.4-46.3) fL RDW Coeff of Mario 18.4 H (11.5-14.5) % Neut # (Auto) 10.97 H (1.40-6.50) K/uL Lymph # (Auto) 1.03 L (1.20-3.40) K/uL [place] # (Auto) 0.92 H (0.11-0.59) K/uL Immature Gran # (Auto) 0.33 H (0.01-0.20) K/uL Sodium 147 H (136-145) mmol/L Chloride 109 H (98-107) mmol/L BUN 38 H D (6-23) mg/dl BUN/Creatinine Ratio 31.9 H (10-20) POC Glucose 220 H (70-99) mg/dl Hemoglobin A1c 6.4 H (4.5-5.6) % Lactate (0.4-2.0) mmol/L Calcium 7.9 L (8.6-10.3) mg/dl Magnesium 2.9 H (1.7-2.4) mg/dl TIBC 219 L (250-450) mcg/dl Ferritin 443.5 H (8-388) ng/ml Vitamin B12 > 1500 H (180-914) pg/ml Diagnostic Findings Chest X-Ray 02/12/24 08:06 XR chest 1V portable CLINICAL HISTORY: weakness COMPARISON STUDY: Chest CT October 23, 2023. Chest radiograph January 10, 2024. FINDINGS: Mild elevation of the right hemidiaphragm is unchanged. There is no pneumothorax or pleural effusion. Multiple old right upper rib fractures are again noted. Cardiomegaly is unchanged. There is no evidence for pulmonary edema. A hiatal hernia is again noted. Linear right lower lung densities favor scarring. There is no consolidation to suggest pneumonia. IMPRESSION: No acute cardiopulmonary findings. No significant change in appearance of the chest. ACT 112: Negative or not required by law. Electronically signed by: Shivam Ward M.D. 02/12/2024 8:41 AM Abdomen/Pelvis CT 02/12/24 09:57 CT OF THE ABDOMEN AND PELVIS WITHOUT CONTRAST CLINICAL HISTORY: Altered mental status. COMPARISON STUDY: CT of the abdomen and pelvis January 10, 2024. TECHNIQUE: Axial images of the abdomen and pelvis were obtained without IV contrast. Images were reviewed in the axial, sagittal, and coronal planes. Automated exposure control was utilized for the study. A dose lowering technique was utilized adhering to the principles of ALARA. FINDINGS: Secretions within the right lower lobe bronchi are better depicted on the chest CT. Right lower lobe and right middle lobe airspace opacities have increased since CT of January 10, 2024. There is a moderate sized hiatal hernia. No pneumatosis, free air or portal venous gas is present. There is no significant biliary ductal dilatation status post cholecystectomy. Spleen, adrenal glands, kidneys and pancreas are unremarkable on unenhanced exam. No hydronephrosis. There are no urinary calculi. There is no pancreatic ductal dilatation. A moderate amount of stool within the colon and rectum is present. There is extensive colonic diverticulosis without evidence for acute di verticulitis. There is no evidence for a bowel obstruction. There are no fluid collections. The appendix is normal. There is no lymphadenopathy. Old L2 compression fracture is unchanged. No acute fractures. Severe multilevel degenerative changes within the lumbar spine are incidentally noted. Mild bladder wall thickening is unchanged. There are several bladder diverticula. IMPRESSION: 1. No urinary calculi or hydronephrosis. Bladder wall thickening, similar to prior exam. This could be correlated with urinalysis. 2. No bowel obstruction. Moderate amount of stool within the colon and rectum. 3. Extensive colonic diverticulosis. No evidence for acute diverticulitis. 4. Secretions within the right lower lobe bronchi with right lower lobe and right middle lobe airspace opacities which have developed since prior CT. The findings may reflect pneumonia or aspiration pneumonitis. ACT 112: Negative or not required by law. Electronically signed by: Shivam Ward M.D. 02/12/2024 10:[address] 02/12/24 09:57 CT chest diagnostic wo con CLINICAL HISTORY: 83 years-old Female with sepsis. Acute sepsis TECHNIQUE: Multiaxial CT images of the chest were performed without contrast. A dose lowering technique was utilized adhering to the principles of ALARA. COMPARISON: CT abdomen and pelvis of same day, chest radiograph of same day chest CT 10/23/2023 FINDINGS: No dominant thyroid nodule or lymphadenopathy. Borderline enlarged heart. No pericardial effusion. Moderate coronary artery calcifications. No thoracic aortic aneurysm. Trace pleural effusions. Right lower lobe predominant mucous plugging with linear right alveolar consolidation. Patchy multifocal tree-in-bud nodules of the right lung base. Mild subsegmental left basilar atelectasis. 3 mm solid nodule within the apical posterior segment left upper lobe is unchanged. 3 mm solid nodules in the right lung apex is also likely stable. Mid to distal esophageal wall thickening with moderate sized hiatal hernia. Cholecystectomy. Colonic diverticulosis. Degenerative changes of the shoulders and spine. Healed chronic fracture lateral right third rib. No acute fracture identified. IMPRESSION: 1. Findings suggestive of aspiration pneumonitis with right lower lobe predominant mucous plugging, linear consolidation with tree-in-bud nodules/bronchiolitis. 2. Mid to distal esophageal wall thickening with moderate sized hiatal hernia. 3. No lymphadenopathy. ACT 112: Negative or not required by law. Electronically signed by: Nic Winters M.D. 02/12/2024 10:[address] 02/12/24 09:57 CT OF THE HEAD WITHOUT CONTRAST CLINICAL HISTORY: Sepsis. COMPARISON STUDY: Head CT January 10, 2024) MRA brain January 22, 2024. CT DOSE: 1368.71 mGy.cm TECHNIQUE: Helical axial images of the head were obtained without IV contrast. Automated exposure control was utilized for the study. A dose lowering techni que was utilized adhering to the principles of ALARA. FINDINGS: No acute intracranial hemorrhage, midline shift or mass effect is present. The ventricular system is stable. Basal cisterns are patent. There are no extra-axial collections. White matter hypodensity suggests small vessel disease. These are unchanged. A 1 cm hypodensity within the right cerebellar hemisphere on image 6 of 28 is present. There is a possible corresponding old infarct on MRI of January 22, 2024. However, this finding remains age indeterminate. IMPRESSION: 1. No acute intracranial hemorrhage or mass effect. 2. 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 ACT 112: Negative or not required by law. Electronically signed by: Shivam Ward M.D. 02/12/2024 10:35 AM Shoulder X-Ray 02/12/24 13:02 XR shoulder LT min 2V routine CLINICAL HISTORY: Left shoulder pain. COMPARISON: None FINDINGS: There are no fractures within the left shoulder. Elevation of the left humeral head with narrowing of the subacromial space is noted. There is severe glenohumeral joint space narrowing as well as moderate joint space narrowing and osteophytosis of the acromioclavicular joint. IMPRESSION: 1. No fractures within the left shoulder. 2. Severe osteoarthritis within the left shoulder. 3. Elevation of the left humeral head suggestive of a chronic rotator cuff tear. ACT 112: Negative or not required by law. Electronically signed by: Shivam Ward M.D. 02/12/2024 1:50 PM Medications Administered Current Inpatient Medications Acetaminophen (Acetaminophen 325 Mg Tab) 650 mg PO Q6 PRN PRN Reason: Fever Or Pain Stop: 03/13/24 14:50 Amlodipine Besylate (Amlodipine Besylate 5 Mg Tab) 10 mg PO DAILY [facility] Stop: 03/14/24 08:59 Last Admin: 02/13/24 09:12 Dose: 10 mg Apixaban (Apixaban 2.5 Mg Tab) 2.5 mg PO BID [facility] Stop: 03/13/24 20:59 Last Admin: 02/13/24 09:13 Dose: 2.5 mg Artificial Tears (Artificial Tears) 1 drops OPL Q6H PRN PRN Reason: DRYNESS/WATERING Stop: 03/13/24 18:44 Ascorbic Acid (Ascorbic Acid 500 Mg Tab) 1,000 mg PO QAM [facility] Stop: 03/14/24 08:59 Last Admin: 02/13/24 09:13 Dose: 1,000 mg Brimonidine Tartrate (Brimonidine Tartrate 0.2% 5ml) 1 drops OPB BID [facility] Stop: 03/13/24 20:59 Last Admin: 02/13/24 09:20 Dose: 1 drops Calcium Carbonate (Calcium Carbonate 500 Mg Chewable Tab) 1,000 mg PO Q2H PRN PRN Reason: Heartburn Stop: 03/13/24 15:25 Carvedilol (Carvedilol 6.25 Mg Tab) 6.25 mg PO BID [facility] Stop: 03/13/24 20:59 Last Admin: 02/13/24 09:12 Dose: 6.25 mg Cyanocobalamin (Cyanocobalamin (B-12) 500 Mcg Tablet) 1,000 mcg PO [facility] Stop: 03/14/24 08:59 Last Admin: 02/13/24 09:13 Dose: 1,000 mcg Dextrose (Dextrose 50% 50 Ml Syringe) 25 - 50 ml IV UD PRN; Protocol PRN Reason: Hypoglycemia Protocol Stop: 03/13/24 18:42 Diclofenac Sodium (Diclofenac Sod 1% Gel 100 Gm Tube) 2 gm EXT QID [facility]; Protocol Stop: 03/13/24 20:59 Last Admin: 02/13/24 09:19 Dose: 2 gm Famotidine (Famotidine 10 Mg Tablet) 10 mg PO HS [facility] Stop: 03/13/24 20:59 Last Admin: 02/12/24 20:32 Dose: 10 mg Folic Acid (Folic Acid 1 Mg Tab) 1 mg PO [facility] Stop: 03/14/24 08:59 Last Admin: 02/13/24 09:13 Dose: 1 mg Glucagon (Glucagon For Inj 1 Mg Vial) 1 mg SQ UD PRN; Protocol PRN Reason: Hypoglycemia Protocol Stop: 03/13/24 18:42 Glucose (Glucose 40% Gel 15 Gm Tube) 15 - 30 gm PO UD PRN; Protocol PRN Reason: Hypoglycemia Protocol Stop: 03/13/24 18:42 Glucose (Glucose 10 Tab/Tube) 4 - 8 tab PO UD PRN; Protocol PRN Reason: Hypoglycemia Protocol Stop: 03/13/24 18:42 Dextrose (D5w) 500 mls @ 80 mls/hr IV .Q6H15M [facility] Stop: 02/13/24 15:29 Last Admin: 02/13/24 09:21 Dose: 80 mls/hr Ertapenem (Invanz 1000mg) 1,000 mg in 10 mls @ 2 mls/min IV Q24H [facility]; Protocol Stop: 02/17/24 23:59 Insulin Aspart (Insulin Aspart Per Unit Charge) 0 units SC ACHS [facility] Stop: 03/13/24 20:59 Last Admin: 02/13/24 13:25 Dose: 2 units Latanoprost (Latanoprost 0.005% Op Soln 2.5 Ml Btl) 1 drops OPB HS [facility] Stop: 03/13/24 20:59 Last Admin: 02/12/24 20:30 Dose: 1 drops Levothyroxine Sodium (Levothyroxine Sodium 75 Mcg Tablet) [facility] Stop: 03/14/24 06:29 Last Admin: 02/13/24 05:10 Dose: 75 mcg Magnesium Oxide (Magnesium Oxide 400 Mg Tab) 400 mg PO [facility] Stop: 03/13/24 20:59 Last Admin: 02/12/24 20:33 Dose: 400 mg Methenamine Hippurate (Methenamine Hippurate 1 Gm Tab) 1 gm PO BID [facility] Stop: 02/17/24 20:59 Last Admin: 02/13/24 09:13 Dose: 1 gm Miconazole Nitrate (Miconazole Nitrate Powder 85 Gm) 1 appln EXT PRN [facility] Stop: 03/13/24 19:14 Last Admin: 02/12/24 21:02 Dose: 1 appln Miscellaneous (Carbohydrates For Hypoglycemia ) 15 - 30 gm PO UD PRN PRN Reason: Hypoglycemia Protocol Stop: 03/13/24 18:42 Pantoprazole Sodium (Pantoprazole 40 Mg Tab) 40 mg PO DAILY [facility] Stop: 03/14/24 08:59 Last Admin: 02/13/24 09:12 Dose: 40 mg Polyethylene Glycol (Polyethylene (Miralax) 17 Gm Pack) 17 gm PO DAILY PRN PRN Reason: Constipation Stop: 03/13/24 19:34 Last Admin: 02/12/24 20:31 Dose: 17 gm Polysaccharide Iron Complex (Iron Polysaccharide Complex 150 Mg Capsule) 150 mg PO DAILY [facility] Stop: 03/14/24 08:59 Last Admin: 02/13/24 12:29 Dose: Not Given Potassium Chloride (Potassium Chloride Crtab 20 Meq Tabcr) 20 meq PO TID [facility] Stop: 03/13/24 14:50 Last Admin: 02/13/24 09:12 Dose: 20 meq Prednisone (Prednisone 5 Mg Tab) 15 mg PO QAM [facility] Stop: 03/15/24 08:59 Pregabalin (Pregabalin 75 Mg Cap) 75 mg PO TID [facility] Stop: 03/13/24 14:50 Last Admin: 02/13/24 09:18 Dose: 75 mg Ropinirole HCl (Ropinirole Hcl 2 Mg Tablet) 2 mg PO HS [facility] Stop: 03/13/24 20:59 Last Admin: 02/12/24 20:33 Dose: 2 mg Sennosides (Senna 8.6 Mg Tab) 8.6 mg PO QAM [facility] Stop: 03/14/24 08:59 Last Admin: 02/13/24 09:18 Dose: 8.6 mg Timolol Maleate (Timolol Maleate 0.5% Op Soln 5 Ml Btl) 1 drops OPB BID [facility] Stop: 03/13/24 20:59 Last Admin: 02/13/24 09:19 Dose: 1 drops Venlafaxine HCl (Venlafaxine Hcl Xr 150 Mg Capxr) 150 mg PO QAM [facility] Stop: 03/14/24 08:59 Last Admin: 02/13/24 09:13 Dose: 150 mg Venlafaxine HCl (Venlafaxine Hcl Xr 37.5 Mg Capxr) 37.5 mg PO QAM [facility] Stop: 03/14/24 08:59 Last Admin: 02/13/24 09:13 Dose: 37.5 mg PG Care Time/CCT Total # of Minutes Spent Total Time Spent with Patient: Total time spent is greater than 50% in coordination of care (as documented) at patient's floor/unit and/or counseling patient: Advanced Care Planning 84032 Advanced Care Planning 30 Min C[place] [address] SUB INP/OBS CARE 04/05MIN Patient Type Established History Detailed Exam Detailed Medical Decision Making Low Complexity Diagnoses Lethargy R53.83 Confusion R41.0 Poor appetite R63.0 Goals of care, counseling/discussion Z71.89 Additional Codes Advanced Care Planning - 86001 Advanced Care Planning 30 Min: 49337 Advanced Care Planning 30 Min ([id number])
[2024-02-13] MEDS ORDERED: Nursing to Pharmacy Communication SCH (17:30)
[2024-02-13] MEDS: INSULIN ASPART PER UNIT CHARGE SC SCH (18:06)
[2024-02-13] MEDS ORDERED: INSULIN ASPART PER UNIT CHARGE SC SCH (21:00)
[2024-02-14 07:16] LABS: Basophils # (auto) 0.03 K/uL (0.00-0.20); Basophils % (auto) 0.2 %; Eosinophils # (auto) 0.12 K/uL (0.00-0.50); Eosinophils % (auto) 0.8 %; Hemoglobin 8.6 g/dl (12.0-16.0); Immature Granulocytes % (auto) 3.2 %; Lymphocytes # (auto) 0.84 K/uL (1.20-3.40); Lymphocytes % (auto) 5.5 %; Mean Corpuscular Hemoglobin 30.5 pg (25.0-34.0); Mean Corpuscular Hgb Conc 30.7 g/dL (32.0-36.0); Mean Corpuscular Volume 99.3 fL (80.0-100.0); Mean Platelet Volume 11.1 fL (9.4-12.4); Monocytes # (auto) 1.23 K/uL (0.11-0.59); Neutrophils # (auto) 12.69 K/uL (1.40-6.50); Neutrophils % (auto) 82.3 %; Nucleated RBC # (auto) 0.04 K/uL (0.00-0.12); Nucleated RBC % (auto) 0.3 %; Platelet Count 186 K/uL (130-400); RDW Coefficient of Variation 17.8 % (11.5-14.5); Red Blood Count 2.82 M/uL (4.20-5.40); White Blood Count 15.41 K/ul (4.8-10.8)
[2024-02-14 07:37] LABS: BUN Creatinine Ratio 24.2 (10-20); Calcium 8.3 mg/dl (8.6-10.3); Creatinine Clr Calc Pharmacy 32.5 ml/min; Potassium 4.1 mmol/L (3.5-5.1)
[2024-02-14] MEDS: predniSONE 5 MG TAB PO SCH (08:57)
[2024-02-14] MEDS ORDERED: oxyCODONE HCL IR 5 MG TAB (IMMEDIATE RELEASE) PO PRN (09:48)
--- NOTE | 2024-02-14 10:10 | Palliative Care Consultation ---
Date of Consultation February 14, 2024 History of Present Illness Attending Physician: Elsa Smith MD Allergies Allergy/AdvReac Type Severity Reaction Status Date / Time aspirin Allergy Severe ANAPHYLAXIS Verified 01/10/24 18:45 duloxetine [From Cymbalta] Allergy Intermediate Rash Verified 01/10/24 18:45 NSAIDS (Non-Steroidal Allergy Unknown Verified 01/10/24 18:45 Anti-Inflamma lisinopril AdvReac Intermediate Cough Verified 01/10/24 18:45 Home Medications Medication Instructions Recorded Confirmed Type acetaminophen 325 mg tablet 650 mg PO Q6 PRN Fever Or Pain 09/28/23 02/12/24 History (Tylenol) brimonidine 0.2 %-timolol 0.5 % 1 drp OPB BID 09/28/23 02/12/24 History eye drops bumetanide 2 mg tablet 2 mg PO QAM 09/28/23 02/12/24 History calcium carbonate 1,000 mg PO Q2H PRN Heartburn 09/28/23 02/12/24 History carboxymethylcellulose sodium 1 % 1 drp OPL Q6H PRN DRYNESS/WATERING 09/28/23 02/12/24 History eye drops (Artificial Tears (carboxymethylcellulose)) famotidine 10 mg tablet 10 mg PO HS 09/28/23 02/12/24 History levothyroxine 75 mcg tablet 75 mcg PO QAM 09/28/23 02/12/24 History magnesium oxide 500 mg PO HS 09/28/23 02/12/24 History ondansetron HCl 4 mg tablet 4 mg PO Q6H PRN Nausea 09/28/23 02/12/24 History pantoprazole 40 mg tablet,delayed 40 mg PO DAILY 09/28/23 02/12/24 History release ropinirole 2 mg tablet 2 mg PO HS 09/28/23 02/12/24 History amlodipine 10 mg tablet 10 mg PO DAILY #10 tabs 10/03/23 02/12/24 Rx carvedilol 6.25 mg tablet 6.25 mg PO BID 10/23/23 02/12/24 History venlafaxine 150 mg 150 mg PO UD 10/23/23 02/12/24 History capsule,extended release 24 hr apixaban 2.5 mg tablet (Eliquis) 2.5 mg PO BID #0 tabs 10/30/23 02/12/24 Rx folic acid 1 mg tablet 1 mg PO QAM #0 tabs 10/30/23 02/12/24 Rx loratadine 5 mg-pseudoephedrine ER 1 tab PO Q12H PRN allergy symptoms 10/30/23 02/12/24 Rx 120 mg tablet,extended #0 tabs release,12hr (Claritin-D 12 Hour) sennosides 8.6 mg tablet (Senokot) 8.6 mg PO QAM #0 tabs 10/30/23 02/12/24 Rx diclofenac sodium 1 % topical gel 0 g topical QID 12/04/23 02/12/24 History prednisone 20 mg tablet 20 mg PO QAM 12/04/23 02/12/24 History pregabalin 75 mg capsule 75 mg PO TID 12/04/23 02/12/24 History venlafaxine 37.5 mg 37.5 mg PO UD depression 12/04/23 02/12/24 History capsule,extended release 24 hr polyethylene glycol 3350 17 gram 17 g PO QAM 01/10/24 02/12/24 History oral powder packet (Miralax) polysaccharide iron complex 150 mg 150 mg PO DAILY 01/10/24 02/12/24 History iron capsule (Ferrex) potassium chloride 20 mEq 20 meq PO TID 01/10/24 02/12/24 History tablet,extended release(part/cryst) ertapenem 1 gram solution for 1 g IV DAILY #4 ea 01/15/24 02/12/24 Rx injection ascorbic acid (vitamin C) 1,000 mg 1 g PO QAM 02/12/24 02/12/24 History tablet (Vitamin C) bisacodyl 10 mg rectal suppository 10 mg OK DAILY PRN Constipation 02/12/24 02/12/24 History (Dulcolax (bisacodyl)) cyanocobalamin (vitamin B-12) 1,000 mcg PO QAM 02/12/24 02/12/24 History 1,000 mcg tablet (Vitamin B-12) latanoprost 0.005 % eye drops 1 drp OPB HS 02/12/24 02/12/24 History lidocaine HCl 10 mg/mL (1 %) See Rx Instructions .Route .COMPLEX 02/12/24 02/12/24 History injection solution magnesium hydroxide 400 mg/5 mL See Rx Instructions .Route .COMPLEX 02/12/24 02/12/24 History oral suspension (Milk of Magnesia) methenamine hippurate 1 gram tablet 1 g PO BID 02/12/24 02/12/24 History methylprednisolone sod suc(PF) 125 62.5 mg IM QAM 02/12/24 02/12/24 History mg/2 mL solution for injection (Solu-Medrol (PF)) morphine concentrate 100 mg/5 mL 10 mg PO Q1H PRN Pain 02/12/24 02/12/24 History (20 mg/mL) oral solution nystatin 100,000 unit/gram topical 1 applic topical BID 02/12/24 02/12/24 History powder promethazine 25 mg/mL injection 25 mg IM Q6H PRN Nausea And 02/12/24 02/12/24 History solution Vomiting sodium phosphates 19 gram-7 118 ml OK DAILY PRN Constipation 02/12/24 02/12/24 History gram/118 mL enema (Fleet Enema) Patient History Medical History Thrombocytopenia Sepsis Gram-negative bacteremia Streptococcal bacteremia Community acquired pneumonia Metabolic encephalopathy DVT (deep venous thrombosis) Non-ST elevation [place] (NSTEMI) [facility] resident resident of [facility] Dysphagia Gait abnormality Low back pain Personal history of venous thrombosis and embolism Other intestinal Escherichia coli infections Cognitive communication deficit Adult failure to thrive Herniated lumbar disc without myelopathy Left central disc herniation at L5-S1 Lumbar radiculopathy High cholesterol Anxiety Hypertension Surgical History History of total bilateral knee replacement (TKR) History of carpal tunnel release RIGHT HAND Hx of arthroscopy RIGHT KNEE (MENISCUS) Hx of tonsillectomy Hx of hysterectomy Hx laparoscopic cholecystectomy Family History Mother Family history of reaction to anesthesia SLOW TO AWAKEN Social History Smoking Status: Never smoker Second Hand Exposure: No; Do You Dip or Chew Tobacco: No; Hx Alcohol Use: Yes Alcohol type: hard liquor Hx Substance Use: No Preferred Language: Georgian Communication Ability: Effective Communication Ability Comment: Pt disoriented, but able to communicate needs Visual Impairment: No Limitations Ramp Boss Required: No Beliefs That Will Affect Care: None marital status: Single Current Living Situation: Skilled Nursing Current Living Situation Comment: [facility] How many Children do You have: 0 Feels Safe at Home: Yes Safety Concerns: Feels Safe At This Time Assistive Devices: Mechanical Lift and Wheelchair Results & Data Vital Signs (Past 12 Hours) Vital Signs Temp Pulse Pulse Resp BP Pulse Ox O2 Del Method 02/13/24 12:14 36.6 C 85 18 134/75 93 Room Air 02/13/24 08:17 36.5 C 76 18 156/72 H 97 Room Air 02/13/24 07:30 Room Air 02/13/24 07:00 77 02/13/24 03:38 36.8 C 74 20 147/73 H 94 Room Air PG Care Time/CCT Total # of Minutes Spent Total Time Spent with Patient: Total time spent is greater than 50% in coordination of care (as documented) at patient's floor/unit and/or counseling patient: Coding
--- NOTE | 2024-02-14 13:34 | Palliative Family Discussion ---
Date of Service February 15, 2024 Patient Directed Conference Time of Meetin:00 - 12:30 Participants: Tayler Ledezma AGACNP Patient participation: yes Patient Support System: brother Johnathon Other Healthcare Provider Participation: None Meeting Location: bedside Advanced Directive available: No If yes, descriptors: The patient's surrogate medical decision maker participated: no Legally authorized health care proxy: No Other surrogate: No advanced directive on file but pt identified her brother Johnathon as the person she trust to make decisions for her in the event she lacks decisional capacity. Pt does require a proxy for medical decisions. Patient has exhibited current lack of decisional capacity based on the inability to convey understanding of personal PMHx, current medical condition, treatment options nor the risks / benefits of those options, and lack of ability to make decisions based on such knowledge. Hospital does not have written documentation of patient wishes concerning her chosen proxy for medical decisions. Per PA [id number], in absence of written documentation of patient wishes, pt's proxy for medical decisions would be her brother Johnathon. A family meeting was scheduled for this morning held for LADAN RUELAS. This meeting was necessary for determining the appropriate course of treatment. Unfortunately family was unable to make the meeting. I did receive an incoming message from [place], but unfortunately was unable to reach him today to reschedule. Palliative care team will be available on Sunday to readdress GOC with family. Topics of Discussion Assessed pt at bedside, she is more drowsy today, arousable but confused. No family present. I did address pt's decisional capacity as above. GOC not addressed today as pt not decisional and HCPOA not available.
--- NOTE | 2024-02-14 13:52 | Communication Note ---
Date of Service: February 14, 2024 Spoke with both pt, at bedside, and her chosen MDM proxy/brother Johnathon, on phone. Briefly reviewed HPI and admission course. Pt more alert and coherent today. She is able to recognize that she is having visual hallucinations for "past week or so' and a progression of her baseline slow speech and word finding difficulty. Johnathon shared that he will be driving to hospital from [place] tomorrow morning and GO meeting planned, time TBD.
--- NOTE | 2024-02-14 17:48 | Hospitalist Progress Note ---
Date of Service February 14, 2024 Assessment & Plan (1) Aspiration pneumonia: Plan: Patient with history of ESBL E. coli/sepsis/bacteremia/recurrent UTIs -> currently undergoing course of ertapenem x 2 weeks Presents with fatigue, cough, sore throat, rhinorrhea after being started on oral liquid morphine for comfort measures last week. Likely aspirated due to lethargy from opioids CT chest showing aspiration pneumonitis with RLL predominant mucous plugging, linear consolidation with tree-in-bud modules/bronchiolitis On admission, WBC 17.21, lactate 3.3 -> 5.2 and then back down to 3 No hypoxemia, VBG consistent with likely mixed acute respiratory alkalosis on chronic respiratory acidosis Repeat UA could be more consistent w/ possible contamination-Gayle growing which is not a pathogen and likely from contamination from the vaginal jose francisco However, now urine cx with Enterococcus faecium Continue ertapenem which covers both her ESBL E. coli from the previous UTI and bacteremia, but also covers for anaerobes and aspiration pneumonia MRSA swab negative -no need for MRSA coverage Was given IV fluids on admission for dehydration Continue incentive spirometry Follow blood cultures-no growth to date Seen by speech therapy-video swallow 01/10/24 showed penetration and scant silent aspiration of thin via straw and noted esophageal dysmotility with retrograde motion that is likely reentering the pharyngeal cavity likely the etiology of PNA-recommending mouth care, no straws, easy to chew, thin liquids, aspiration and reflux precautions Speech recommends to defer repeat video swallow at this time Discontinued liquid morphine for now as she does not desire comfort care at this time (2) Chronic kidney disease, stage IV (severe): Plan: Mild DENNIS on CKD stage IV-Cr 1.7 on admission (baseline 1.2) and now improved after IV fluids down to 1.1-1.2 Continue to avoid nephrotoxic agents Will trend BMP (3) Hypernatremia: Plan: Sodium 147 and likely higher than that when corrected for hyperglycemia on admission, now down to 146 She has not been drinking much free water since she has been on comfort measures with morphine Follow BMP Provide access to free water (4) Anemia: Plan: Hemoglobin severely low but has been for a long time at 7-8 Iron studies, B12, folate all normal. No evidence of bleeding Likely anemia of chronic disease given rheumatoid arthritis, chronic kidney disease Follow CBC (5) Rheumatoid arthritis: Plan: On stress dose steroids prior to admission- Solu-Medrol 62.5 mg + prednisone 20 mg daily on admission from [facility] Was increased from usual 5mg daily to 20mg daily on discharge from hospital in 11/2023 and never decreased back down Follows with Dr. Yanez at [facility] Wean down prednisone to 15mg daily for 2 weeks, then go to 10mg daily x 2 weeks on 02/28 BPs normal and no need for stress steroids currently Continue Lyrica (6) Hyperglycemia: Plan: Hyperglycemia: secondary to steroid use-glucose in the 300s at times likely due to recent stress dosed steroids Weaning prednisone Hemoglobin A1c in prediabetes range at 6.4% Continue insulin (7) ESBL (extended spectrum beta-lactamase) producing bacteria infection: Plan: History of recurrent UTIs, bacteremia, and sepsis and recently discharged on IV ertapenem Continue IV ertapenem to finish out course on 02/17 CT A/P showing bladder wall thickening but no hydronephrosis or stones. Repeat UA slightly abnormal and now Ur cx with Enterococcus faecium--> add Daptomycin and f/u sensitivities continue methenamine Has had recurrent ESBL E. coli bacteremia which is odd but no source found other than urine on previous hospitalizations (8) Left shoulder pain: Plan: History of RA Left shoulder pain x 1 week; denies trauma to shoulder XR showing no fxs, severe osteoarthritis, elevation of left humeral head suggestive of chronic rotator cuff tear Continue Tylenol prn, voltaren gel, continue prednisone for RA Stop liquid morphine from home and resume oxycodone as needed which she has been on for years (9) HTN (hypertension): Plan: BP is mildly elevated Continue to hold previous hydralazine, Bumex, and losartan for DENNIS Okay to continue amlodipine, carvedilol (10) Wound of foot: Plan: 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), chronic, see images in chart Tylenol prn wound care daily (11) Hypothyroidism: Plan: TSH decreased (0.029) continue Levothyroxine same dose for now, follow when not acutely ill (12) History of CVA (cerebrovascular accident): Plan: Seen on head CT here in the right cerebellum Unsure if patient aware of this Continue apixaban She is allergic to aspirin Unclear history Plan Chronic stable diagnoses: Hx DVT - continue Eliquis Pulm HTN-Echo 09/30/23 EF 55 to 60%, borderline LVH, severe pulmonary hypertension GERD - continue Pepcid and pantoprazole depression - continue venlafaxine RLS-continue ropinirole VTE ppx: Eliquis Code status: DNR/DNI Dispo: down grade to med/surg, ongoing stay but could discharge to SNF once Ur cx resulted Patient with recurrent infections, recent decline, and confusion - as per staff at [facility] - patient considered comfort measures 02/11/24 but then patient changed her mind and came to the hospital for treatment Discussed care with her brother and [id number] on the phone-plan to have palliative meeting on Sunday in person for goals of care discussion Admission and Anticipated Discharge Date Admission Date: February 12, 2024 Subjective Pt was reportedly more awake and alert for most of the day today, but when I came to see her around 5:30 pm, she was lying flat in her bed with her eyes closed, trying to chew a chicken salad sandwich. I sat her bed to sitting upright position and removed her food from her reach. She was drowsy but would answer my questions with her eyes closed. Denies pain. I discussed her care w/ Palliative Med TRUCK DRIVER Tele with NSR, rates 80s Physical Exam Constitutional: average body habitus; no acute distress Eyes: + anicteric sclerae Respiratory: normal respiratory effort; no cough Auscultation: + diminished lung sounds (Right base); no crackles and no rhonchi Cardiovascular: Rate/Rhythm: regular rate and regular rhythm Heart Sounds: no murmur Extremities: + edema (1+ pitting edema legs bilaterally) Gastrointestinal (Abdomen): normal bowel sounds, soft, nontender, no hepatosplenomegaly Psychiatric: Orientation: + not alert Results & Data Results & Data Vital Signs (Past 12 Hours) Vital Signs Temp Pulse Pulse Resp BP BP Pulse Ox 02/14/24 15:03 36.3 C L 88 18 153/80 H 97 02/14/24 12:01 36.5 C 88 18 152/78 H 93 02/14/24 08:05 36.6 C 84 18 151/79 H 96 02/14/24 07:00 02/14/24 06:58 86 O2 Del Method 02/14/24 15:03 Room Air 02/14/24 12:01 Room Air 02/14/24 08:05 Room Air 02/14/24 07:00 Room Air 02/14/24 06:58 Laboratory Results CBC, BMP, blood and urine cx reviewed PG Care Time/CCT Total # of Minutes Spent Total Time Spent with Patient: Total time spent is greater than 50% in coordination of care (as documented) at patient's floor/unit and/or counseling patient: Coding Level of Care Code 87288 SUB INP/OBS CARE 2/35MIN Diagnoses Aspiration pneumonia J69.0 Aspiration pneumonia type: unspecified Laterality: right Lung location: lower lobe of lung Chronic kidney disease, stage IV (severe) N18.4 Hypernatremia E87.0 Anemia D64.9 Anemia type: unspecified type Rheumatoid arthritis M06.9 Rheumatoid arthritis location: unspecified site Rheumatoid factor presence: unspecified presence Hyperglycemia R73.9 ESBL (extended spectrum beta-lactamase) producing bacteria infection A49.9; Z16.12 Left shoulder pain M25.512 HTN (hypertension) I10 Hypertension type: unspecified Wound of foot S91.309A Hypothyroidism E03.9 History of CVA (cerebrovascular accident) Z86.73 (1) Aspiration pneumonia Aspiration pneumonia type: unspecified Laterality: right Lung location: lower lobe of lung Qualified Code(s): J69.0 - Pneumonitis due to inhalation of food and vomit (4) Anemia Anemia type: unspecified type Qualified Code(s): D64.9 - Anemia, unspecified (5) Rheumatoid arthritis Rheumatoid arthritis location: unspecified site Rheumatoid factor presence: unspecified presence Qualified Code(s): M06.9 - Rheumatoid arthritis, unspecified (9) HTN (hypertension) Hypertension type: unspecified Qualified Code(s): I10 - Essential (primary) hypertension
[2024-02-14] MEDS: DAPTOmycin 300 MG in SYRINGE 0 ML IV SCH (17:58)
[2024-02-15 07:10] LABS: Basophils # (auto) 0.03 K/uL (0.00-0.20); Basophils % (auto) 0.2 %; Eosinophils # (auto) 0.16 K/uL (0.00-0.50); Eosinophils % (auto) 1.1 %; Hematocrit (blood only) 29.1 % (37.0-47.0); Hemoglobin 8.7 g/dl (12.0-16.0); Immature Granulocytes # (auto) 0.42 K/uL (0.01-0.20); Lymphocytes # (auto) 1.06 K/uL (1.20-3.40); Lymphocytes % (auto) 7.6 %; Mean Corpuscular Hemoglobin 30.4 pg (25.0-34.0); Mean Corpuscular Hgb Conc 29.9 g/dL (32.0-36.0); Mean Corpuscular Volume 101.7 fL (80.0-100.0); Mean Platelet Volume 11.3 fL (9.4-12.4); Monocytes # (auto) 1.11 K/uL (0.11-0.59); Monocytes % (auto) 7.9 %; Neutrophils # (auto) 11.21 K/uL (1.40-6.50); Neutrophils % (auto) 80.2 %; Nucleated RBC # (auto) 0.02 K/uL (0.00-0.12); Nucleated RBC % (auto) 0.1 %; Platelet Count 177 K/uL (130-400); RDW Coefficient of Variation 18.3 % (11.5-14.5); RDW Standard Deviation 68.4 fL (36.4-46.3); Red Blood Count 2.86 M/uL (4.20-5.40); White Blood Count 13.99 K/ul (4.8-10.8)
[2024-02-15 08:40] LABS: BUN Creatinine Ratio 21.4 (10-20); Calcium 8.1 mg/dl (8.6-10.3); Creatinine Clr Calc Pharmacy 33.8 ml/min
[2024-02-15 08:59] LABS: Potassium 3.7 mmol/L (3.5-5.1)
[2024-02-15] MEDS: MAGNESIUM SULFATE / D5W 1 GM/100 ML BAG IV ONE (11:13)
[2024-02-15 15:27] VITALS: RESP 18
--- NOTE | 2024-02-15 20:36 | Hospitalist Progress Note ---
Date of Service February 15, 2024 Assessment & Plan (1) Aspiration pneumonia: Plan: Patient with history of ESBL E. coli/sepsis/bacteremia/recurrent UTIs -> currently undergoing course of ertapenem x 2 weeks from last hospitalization P/w fatigue, cough, sore throat, rhinorrhea after being started on oral liquid morphine for comfort measures last [facility]. CT chest showing aspiration pneumonitis with RLL predominant mucous plugging, linear consolidation with tree-in-bud modules/bronchiolitis With leukocytosis and lactic acidosis on admission now resolved Likely aspirated due to lethargy from opioids No hypoxemia, VBG consistent with likely mixed acute respiratory alkalosis on chronic respiratory acidosis Continue ertapenem which covers both her ESBL E. coli from the previous UTI and bacteremia, but also covers for anaerobes and aspiration pneumonia MRSA swab negative -no need for MRSA coverage Was given IV fluids on admission for dehydration Continue incentive spirometry Follow blood cultures-no growth to date Seen by speech therapy-video swallow 01/10/24 showed penetration and scant silent aspiration of thin via straw and noted esophageal dysmotility with retrograde motion that is likely reentering the pharyngeal cavity likely the etiology of PNA-recommending mouth care, no straws, easy to chew, thin liquids, aspiration and reflux precautions Speech recommends to defer repeat video swallow at this time Discontinued liquid morphine for now as she does not desire comfort care at this time (2) Chronic kidney disease, stage IV (severe): Plan: Mild DENNIS on CKD stage IV-Cr 1.7 on admission (baseline 1.2) and now improved after IV fluids down to 0.8 Continue to avoid nephrotoxic agents Follow BMP (3) Hypernatremia: Plan: Sodium 147 and likely higher than that when corrected for hyperglycemia on admission, was down to 146, now back up to 147 She has not been drinking much free water since she has been on comfort measures with morphine Here she has been very drowsy and frequently sleeps through meals, not drinking much Follow BMP Encourage and provide access to free water Hypomagnesemia, Hypokalemia-replace with IV magnesium and po KCl (4) Rheumatoid arthritis: Plan: On stress dose steroids prior to admission- IV Solu-Medrol 62.5 mg + prednisone 20 mg daily on admission from [facility] Chronically on 5mg daily which was increased to 20mg daily on discharge from hospital in 11/2023 and never decreased back down Follows with Dr. Yanez at [facility] Wean down prednisone to 15mg daily for 2 weeks, then go to 10mg daily x 2 weeks on 02/28 BPs normal and no need for stress steroids currently Continue Mickey Takes oxycodone prn severe pain-ok to continue but has not required any doses in 3 days in the hospital Dcd Roxanol as this caused excessive sedation. Would only resume morphine if fully commits to comfort measures only/hospice (5) ESBL (extended spectrum beta-lactamase) producing bacteria infection: Plan: History of recurrent UTIs, bacteremia, and sepsis and recently discharged on IV ertapenem Continue IV ertapenem to finish out course after last dose on 02/16 CT A/P showing bladder wall thickening but no hydronephrosis or stones. Repeat UA slightly abnormal and Ur cx with lower counts of Enterococcus faecium and also with Gayle Discussed case with Pharmacist from antibiotic stewardship who discussed case on ID rounds--> no new urinary symptoms and her presentation ws more likely from aspiration PNA and morphine-induced lethargy This Urine culture is likely physician representative of colonization/contamination No need for daptomycin or any treatment for Enterococcus or Gayle continue methenamine Has had recurrent ESBL E. coli bacteremia which is odd but no source found other than urine on previous hospitalizations (6) Hyperglycemia: Plan: Hyperglycemia: secondary to steroid use-glucose in the 300s at times likely due to recent stress dosed steroids Weaning prednisone Hemoglobin A1c in prediabetes range at 6.4% Continue insulin prn (7) Anemia: Plan: Hemoglobin severely low but has been for a long time at 7-8 Iron studies, B12, folate all normal. No evidence of bleeding Likely anemia of chronic disease given rheumatoid arthritis, chronic kidney disease Follow CBC (8) Left shoulder pain: Plan: History of RA Left shoulder pain x 1 week; denies trauma to shoulder XR showing no fxs, severe osteoarthritis, elevation of left humeral head suggestive of chronic rotator cuff tear Continue Tylenol prn, voltaren gel, continue prednisone for RA Stopped liquid morphine from home and resume oxycodone as needed which she has been on for years (none needed thus far) (9) HTN (hypertension): Plan: BP controlled to mildly elevated at times Continue to hold previous hydralazine, Bumex, and losartan for DENNIS Okay to continue amlodipine, carvedilol (10) Wound of foot: Plan: 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), chronic, see images in chart Tylenol prn wound care daily (11) Hypothyroidism: Plan: TSH decreased (0.029) continue Levothyroxine same dose for now, follow when not acutely ill (12) History of CVA (cerebrovascular accident): Plan: Seen on head CT here in the right cerebellum Unsure if patient aware of this Continue apixaban She is allergic to aspirin Unclear history Plan Chronic stable diagnoses: Hx DVT - continue Eliquis Pulm HTN-Echo 09/30/23 EF 55 to 60%, borderline LVH, severe pulmonary hypertension GERD - continue Pepcid and pantoprazole depression - continue venlafaxine RLS-continue ropinirole VTE ppx: Eliquis Code status: DNR/DNI Dispo: Patient with recurrent infections, recent decline, and confusion. As per staff at [facility] - patient considered comfort measures 02/11/24 but then patient changed her mind and came to the hospital for treatment Palliative meeting for goals of care with pt's brother and [id number] cancelled for 02/14 due to a family emergency. Recommend hospice consult or ongoing Palliative discussions with PCP at [facility]. Plan to discharge back to [facility] on Sat 02/15 Admission and Anticipated Discharge Date Admission Date: February 12, 2024 Anticipated date of discharge: 02/16/24 Subjective Pt much more awake and alert today. Not requiring any pain medication throughout her entire hospital stay thus far Palliative goals of care meeting was to happen this AM but her brother had a family emergency and was unable to travel here or call on the phone Physical Exam Constitutional: average body habitus; no acute distress Eyes: + anicteric sclerae Respiratory: normal respiratory effort; no cough Auscultation: + diminished lung sounds (Right base); no crackles and no rhonchi Cardiovascular: Rate/Rhythm: regular rate and regular rhythm Heart Sounds: no murmur Extremities: + edema (1+ pitting edema legs bilaterally) Gastrointestinal (Abdomen): normal bowel sounds, soft, nontender, no hepatosplenomegaly Psychiatric: Orientation: alert, oriented to person, oriented to place and cooperative Results & Data Results & Data Vital Signs (Past 12 Hours) Vital Signs Temp Pulse Resp BP Pulse Ox O2 Del Method 02/15/24 15:27 36.4 C L 80 18 130/76 98 Room Air 02/15/24 10:34 Room Air Laboratory Results CBC, BMP, blood cx, Urine cx magnesium reviewed PG Care Time/CCT Total # of Minutes Spent Total Time Spent with Patient: Total time spent is greater than 50% in coordination of care (as documented) at patient's floor/unit and/or counseling patient: Coding Level of Care Code 53467 SUB INP/OBS CARE 2/35MIN Diagnoses Aspiration pneumonia J69.0 Aspiration pneumonia type: unspecified Laterality: right Lung location: lower lobe of lung Chronic kidney disease, stage IV (severe) N18.4 Hypernatremia E87.0 Rheumatoid arthritis M06.9 Rheumatoid arthritis location: unspecified site Rheumatoid factor presence: unspecified presence ESBL (extended spectrum beta-lactamase) producing bacteria infection A49.9; Z16.12 Hyperglycemia R73.9 Anemia D64.9 Anemia type: unspecified type Left shoulder pain M25.512 HTN (hypertension) I10 Hypertension type: unspecified Wound of foot S91.309A Hypothyroidism E03.9 History of CVA (cerebrovascular accident) Z86.73 (1) Aspiration pneumonia Aspiration pneumonia type: unspecified Laterality: right Lung location: lower lobe of lung Qualified Code(s): J69.0 - Pneumonitis due to inhalation of food and vomit (4) Rheumatoid arthritis Rheumatoid arthritis location: unspecified site Rheumatoid factor presence: unspecified presence Qualified Code(s): M06.9 - Rheumatoid arthritis, unspecified (7) Anemia Anemia type: unspecified type Qualified Code(s): D64.9 - Anemia, unspecified (9) HTN (hypertension) Hypertension type: unspecified Qualified Code(s): I10 - Essential (primary) hypertension
[2024-02-16 07:14] LABS: Calcium 7.9 mg/dl (8.6-10.3); Potassium 4.6 mmol/L (3.5-5.1)
[2024-02-16 07:16] LABS: BUN Creatinine Ratio 18.5 (10-20); Creatinine Clr Calc Pharmacy 29.3 ml/min
[2024-02-16 07:39] LABS: Basophils # (auto) 0.01 K/uL (0.00-0.20); Basophils % (auto) 0.1 %; Eosinophils # (auto) 0.19 K/uL (0.00-0.50); Eosinophils % (auto) 1.3 %; Hematocrit (blood only) 27.4 % (37.0-47.0); Hemoglobin 8.2 g/dl (12.0-16.0); Immature Granulocytes # (auto) 0.51 K/uL (0.01-0.20); Immature Granulocytes % (auto) 3.6 %; Lymphocytes # (auto) 1.12 K/uL (1.20-3.40); Lymphocytes % (auto) 7.9 %; Mean Corpuscular Hemoglobin 30.1 pg (25.0-34.0); Mean Corpuscular Hgb Conc 29.9 g/dL (32.0-36.0); Mean Corpuscular Volume 100.7 fL (80.0-100.0); Mean Platelet Volume 10.9 fL (9.4-12.4); Monocytes # (auto) 1.03 K/uL (0.11-0.59); Monocytes % (auto) 7.3 %; Neutrophils # (auto) 11.28 K/uL (1.40-6.50); Neutrophils % (auto) 79.8 %; Nucleated RBC # (auto) 0.02 K/uL (0.00-0.12); Nucleated RBC % (auto) 0.1 %; Platelet Count 183 K/uL (130-400); RDW Standard Deviation 66.5 fL (36.4-46.3); Red Blood Count 2.72 M/uL (4.20-5.40); White Blood Count 14.14 K/ul (4.8-10.8)
[2024-02-16 08:08] VITALS: BP 125/73; PULSE 88; TEMP 99.1
[2024-02-16 08:09] VITALS: O2SAT 97
--- NOTE | 2024-02-16 13:55 | Discharge Summary ---
Discharge Summary Date of Service February 16, 2024 Principal Dx & Hospital Course #1 = Principal Diagnosis (1) Aspiration pneumonia: Patient with history of ESBL E. coli/sepsis/bacteremia/recurrent UTIs -> currently undergoing course of ertapenem x 2 weeks from last hospitalization P/w fatigue, cough, sore throat, rhinorrhea after being started on oral liquid morphine for comfort measures last week at the long term. CT chest showing aspiration pneumonitis with RLL predominant mucous plugging, linear consolidation with tree-in-bud modules/bronchiolitis With leukocytosis and lactic acidosis on admission now resolved Likely aspirated due to lethargy from opioids No hypoxemia, VBG consistent with likely mixed acute respiratory alkalosis on chronic respiratory acidosis Continue ertapenem which covers both her ESBL E. coli from the previous UTI and bacteremia, but also covers for anaerobes and aspiration pneumonia MRSA swab negative -no need for MRSA coverage Was given IV fluids on admission for dehydration Continue incentive spirometry Follow blood cultures-no growth to date Seen by speech therapy-video swallow 01/10/24 showed penetration and scant silent aspiration of thin via straw and noted esophageal dysmotility with retrograde motion that is likely reentering the pharyngeal cavity likely the etiology of PNA-recommending mouth care, no straws, easy to chew, thin liquids, aspiration and reflux precautions Speech recommends to defer repeat video swallow at this time Discontinued liquid morphine for now as she does not desire comfort care at this time (2) Chronic kidney disease, stage IV (severe): Mild DENNIS on CKD stage IV-Cr 1.7 on admission (baseline 1.2) and now improved after IV fluids down to 0.8 Continue to avoid nephrotoxic agents Follow BMP at [facility] (3) Hypernatremia: Sodium 147 and likely higher than that when corrected for hyperglycemia on admission, was down to 146, now back up to 147 She has not been drinking much free water since she has been on comfort measures with morphine Here she has been very drowsy and frequently sleeps through meals, not drinking much Follow BMP Encourage and provide access to free water Hypomagnesemia, Hypokalemia-replace with IV magnesium and po KCl (4) Rheumatoid arthritis: On stress dose steroids prior to admission- IV Solu-Medrol 62.5 mg + prednisone 20 mg daily on admission from long term Chronically on 5mg daily which was increased to 20mg daily on discharge from hospital in 11/2023 and never decreased back down Follows with Dr. Yanez at [facility] Wean down prednisone to 15mg daily for 2 weeks, then go to 10mg daily x 2 weeks on 02/28 BPs normal and no need for stress steroids currently Continue Mickey Takes oxycodone prn severe pain-ok to continue but has not required any doses in 3 days in the hospital Dcd Roxanol as this caused excessive sedation. Would only resume morphine if fully commits to comfort measures only/hospice (5) ESBL (extended spectrum beta-lactamase) producing bacteria infection: History of recurrent UTIs, bacteremia, and sepsis and recently discharged on IV ertapenem Continue IV ertapenem to finish out course after last dose on 02/16 CT A/P showing bladder wall thickening but no hydronephrosis or stones. Repeat UA slightly abnormal and Ur cx with lower counts of Enterococcus faecium and also with Gayle Discussed case with Pharmacist from antibiotic stewardship who discussed case on ID rounds--> no new urinary symptoms and her presentation ws more likely from aspiration PNA and morphine-induced lethargy This Urine culture is likely insurance follow up representative of colonization/contamination No need for daptomycin or any treatment for Enterococcus or Gayle continue methenamine Has had recurrent ESBL E. coli bacteremia which is odd but no source found other than urine on previous hospitalizations (6) Hyperglycemia: Hyperglycemia: secondary to steroid use-glucose in the 300s at times likely due to recent stress dosed steroids Weaning prednisone Hemoglobin A1c in prediabetes range at 6.4% Continue insulin prn (7) Anemia: Hemoglobin severely low but has been for a long time at 7-8 Iron studies, B12, folate all normal. No evidence of bleeding Likely anemia of chronic disease given rheumatoid arthritis, chronic kidney disease Follow CBC (8) Left shoulder pain: History of RA Left shoulder pain x 1 week; denies trauma to shoulder XR showing no fxs, severe osteoarthritis, elevation of left humeral head suggestive of chronic rotator cuff tear Continue Tylenol prn, voltaren gel, continue prednisone for RA Stopped liquid morphine from home and resume oxycodone as needed which she has been on for years (none needed thus far) (9) HTN (hypertension): BP controlled to mildly elevated at times Continue to hold previous hydralazine, Bumex, and losartan for DENNIS Okay to continue amlodipine, carvedilol (10) Wound of foot: 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), chronic, see images in chart Tylenol prn wound care daily (11) Hypothyroidism: TSH decreased (0.029) continue Levothyroxine same dose for now, follow when not acutely ill (12) History of CVA (cerebrovascular accident): Seen on head CT here in the right cerebellum Unsure if patient aware of this Continue apixaban She is allergic to aspirin Unclear history (13) Sacral decubitus ulcer: Patient was skin breakdown in the sacral area. Long discussion with family. They are very upset that this occurred. Explained that it will happen with any patient is not able to ambulate on their own or move about of the bed alone Will continue with repositioning frequently Continue foam dressing with silver. Apply antifungal powder dusting over buttocks and sacrum brushing off access. Then apply barrier cream every 2 hours with repositioning Plan Chronic stable diagnoses: Hx DVT - continue Eliquis Pulm HTN-Echo 09/30/23 EF 55 to 60%, borderline LVH, severe pulmonary hypertension GERD - continue Pepcid and pantoprazole depression - continue venlafaxine RLS-continue ropinirole VTE ppx: Eliquis Code status: DNR/DNI Dispo: Patient with recurrent infections, recent decline, and confusion. As per staff at [facility] - patient considered comfort measures 02/11/24 but then patient changed her mind and came to the hospital for treatment Palliative meeting for goals of care with pt's brother and [id number] cancelled for 02/14 due to a family emergency. Recommend hospice consult or ongoing Palliative discussions with PCP at [facility]. Discharge back to [facility] on 02/16/2024 Notes For Next Care Provider Family would like to discuss palliative care versus hospice. They desire not to have patient return to the hospital for further care but focus on hospice. Admission HPI Per Admitting Provider Pt is an 83 yo female with PMH of RA, CKD, DVT, NSTEMI, DVT, Recurrent ESBL E. coli sepsis/bacteremia/UTI. She presents today due to lethargy. She came from [facility] stated that she has been in bed for the past few days, with poor eating habits/eating in bed. She denies that she may have aspirated. They stated that she is just had an overall decline/failure to thrive. The patient had a discussion with staff yesterday about possibly switching to comfort care, changed her mind overnight and stated that she would still like to come to the hospital to be treated. She is currently prescribed ertapenem for 2 weeks, began 01/30 to be finished 02/17. She also was started on stress does steroids. Patient stated that she has had a cough, sore throat, rhinorrhea, fatigue, felt feverish for the past few days. She denies sputum production. She confirmed that she took her morning medications this morning. Patient denies dizziness, lightheadedness, dyspnea, dyspnea on exertion, chest pain, abdominal pain, nausea, vomiting, diarrhea, constipation, dysuria, hematuria, numbness, tingling. She also complains of left shoulder pain, denies trauma to shoulder. State her foot wounds are stable and currently denies pain. Admission Exam Per Admitting Provider Physical Exam: The patient is awake, alert and oriented 3, well developed and well nourished, normocephalic and atraumatic, in no acute distress. Non-toxic appearing. HEENT- EOMI, mucous membranes moist. Hearing grossly intact. Heart-normal S1 and S2. No murmurs, rubs or gallops. Lungs-decreased BL lower lobes, no respiratory distress, no accessory muscle use. Abdomen-normal bowel sounds and soft. No ascites noted. Non-tender. Extremities- no clubbing, cyanosis. Mild BL edema (+1). Foot wounds below Rheumatologic-decreased range of motion. Psychiatric-normal affect. Discharge Exam GENERAL : No acute distress EYES: No icterus, gaze conjugate NOSE: No evidence of epistaxis MOUTH: No lesions or candidiasis NECK: Supple LUNGS: CTA B/L, no wheezes, rales or rhonchi HEART: Regular, rate controlled ABDOMEN: Soft, NT, ND, BS Present EXTREMITIES: No LE edema, pedal pulses intact NEURO: A&OX3. Alert to name and place. Unaware of date. Knows that she is in the hospital. Short-term recall in place. Cooperative. Discharge Plan Discharge Items Patient Disposition: Transfer Half-Way Fac Reason For Visit: ASPIRATION PNA, RECURRENT Discharge Diagnosis: Aspiration pneumonia ESBL E. coli urine infection Activity: Resume your previous activity Lifting: Gradually increase as tolerated Bathing: No limitations Exercise/Sports: Gradually increase as tolerated Weightbearing: Full weightbearing Weightbearing Comment: Weightbearing as tolerated. Patient has baseline neuropathy Non-emergency contact: Primary Care Provider Call non-emergency contact if: you have any medication questions, your symptoms worsen and your temperature is above 101 Follow-up/Referrals: [facility] [Primary Care Provider] - Diet: Carb Count or DM1 Diet Texture: Easy to Chew Addtl Attending Provider Instructions: Patient manage 02/12/2024 with aspiration pneumonia and history of ESBL E. coli. Patient is undergoing course of ertapenem x 2 weeks. Her last dose is due 02/17/2024. She was seen in previous admission by telemetry infection control. Continue to follow those instructions. Patient had ongoing issues with some confusion during this hospital stay. Long discussion with patient's brother Johnathon and [id number] Kristine. They are the only surviving first-degree relatives at this point. Patient was never and has no children. Parents are . Patient met with palliative care during this hospital stay but was not able to make decisions and does not remember visit with that team. In discussion with patient's brother, they desire for consideration of hospice with no further returns to the hospital. I advised them that this would be discussed with the care team at [facility] on discharge. Patient has a chronic anemia which is most likely secondary to chronic disease. Previous peripheral smear showed no dysfunction in the bone marrow. No blood transfusion. Would just watch expectantly and symptomatically. Patient seen by speech pathology for aspiration. Recommending mouth care, no straws, easy to chew, thin liquids, aspiration and reflux precautions Speech recommends to defer repeat video swallow at this time Patient should continue ertapenem until last dose as previously mentioned. No need for Daptomycin Wean down prednisone to 15mg daily for 2 weeks, then go to 10mg daily x 2 weeks on 02/28 BPs normal and no need for stress steroids currently Continue Lyrica Takes oxycodone prn severe pain-ok to continue but has not required any doses in 3 days in the hospital Dcd Roxanol as this caused excessive sedation. Would only resume morphine if fully commits to comfort measures only/hospice Pending Studies at Discharge: No Stand-Alone Forms: My [employer] Skilled Items Patient informed of condition?: Yes DNR: Yes (Per discussion with brother Johnathon) Discharge Level of Care: Skilled Communicable Disease: Yes (ESBL E. coli) Discharge Prognosis: Improving Lines: None Urinary Catheter: No (Pure wick catheter used and patient) Medications and DC Order Prescriptions: New oxycodone 5 mg Tablet 5 mg PO Q4H PRN (Reason: pain) Qty: 60 0RF prednisone 5 mg Tablet 15 mg PO QAM Qty: 30 0RF Continued carvedilol 6.25 mg tablet 6.25 mg PO BID venlafaxine 150 mg Capsule,Extended Release 24hr 150 mg PO UD Rx Instructions: Take 150mg w/ 37.5mg to equal 187.5mg daily Eliquis 2.5 mg Tablet 2.5 mg PO BID Qty: 0 0RF sennosides [Senokot] 8.6 mg Tablet 8.6 mg PO QAM Qty: 0 0RF folic acid 1 mg Tablet 1 mg PO QAM Qty: 0 0RF Claritin-D 12 Hour 5-120 mg Tablet Extended Release 12 Hr 1 tab PO Q12H PRN (Reason: allergy symptoms) Qty: 0 0RF venlafaxine 37.5 mg Capsule,Extended Release 24hr 37.5 mg PO UD Rx Instructions: Take 37.5mg w/ 150mg to equal 187.5mg daily pregabalin 75 mg Capsule 75 mg PO TID Rx Instructions: for neuralgia diclofenac sodium 1 % Gel 0 g TOPICAL QID Rx Instructions: Apply 4g to b/l feet and 2g to shoulder acetaminophen [Tylenol] 325 mg Tablet 650 mg PO Q6 MDD 3 grams PRN (Reason: Fever Or Pain) bumetanide 2 mg tablet 2 mg PO QAM Hold Instructions: Resume on 01/21/24. Consult with physician before restarting famotidine 10 mg Tablet 10 mg PO HS ondansetron HCl 4 mg Tablet 4 mg PO Q6H PRN (Reason: Nausea) levothyroxine 75 mcg tablet 75 mcg PO QAM ropinirole 2 mg tablet 2 mg PO HS pantoprazole 40 mg tablet,delayed release (DR/EC) 40 mg PO DAILY magnesium oxide 500 mg magnesium Tablet 500 mg PO HS calcium carbonate 500 mg calcium (1,250 mg) Tablet,Chewable 1,000 mg PO Q2H PRN (Reason: Heartburn) brimonidine-timolol 0.2-0.5 % drops 1 drp OPB BID Rx Instructions: DAY AND EVENING SHIFT Artificial Tears (cmc) 1 % Drops 1 drp OPL Q6H PRN (Reason: DRYNESS/WATERING) amlodipine 10 mg tablet 10 mg PO DAILY Qty: 10 0RF polysaccharide iron complex [Ferrex 150] 150 mg iron Capsule 150 mg PO DAILY polyethylene glycol 3350 [Miralax] 17 gram powder in packet 17 g PO QAM potassium chloride 20 mEq tablet,ER particles/crystals 20 meq PO TID ertapenem 1 gram recon soln 1 g IV DAILY Qty: 4 0RF Rx Instructions: Mix w/ Lidocaine 1% prior to administration. Start Date 02/04/24 x14 day supply latanoprost 0.005 % Drops 1 drp OPB HS lidocaine HCl 10 mg/mL (1 %) solution See Rx Instructions .ROUTE .COMPLEX Rx Instructions: Inject 3.2ml IM one time daily for minimize discomfort with IM injection of Ertapenem. Mix w/ 1gm Ertapenem prior to administration ascorbic acid (vitamin C) [Vitamin C] 1,000 mg Tablet 1 g PO QAM cyanocobalamin (vitamin B-12) [Vitamin B-12] 1,000 mcg Tablet 1,000 mcg PO QAM methenamine hippurate 1 gram tablet 1 g PO BID magnesium hydroxide [Milk of Magnesia] 400 mg/5 mL Suspension See Rx Instructions .ROUTE .COMPLEX Rx Instructions: Milk of Magnesia 7.75%: Give 30ml by mouth as needed for constipation after no BM for 3 days. Administer MOM on 7-3 shift bisacodyl [Dulcolax (bisacodyl)] 10 mg Suppository 10 mg VT DAILY PRN (Reason: Constipation) Rx Instructions: Give on day 3 of no BM after MOM on 3-11 shift promethazine 25 mg/mL solution 25 mg IM Q6H PRN (Reason: Nausea And Vomiting) Fleet Enema 19-7 gram/118 mL Enema 118 ml VT DAILY PRN (Reason: Constipation) Rx Instructions: Administer if no BM after dulcolax on day 4 of 7-3 shift nystatin 100,000 unit/gram powder 1 applic TOPICAL BID Rx Instructions: Apply to groin/inner thighs BID for redness/excoriation x14 days. Start Date 02/09/24 Discontinued prednisone 20 mg Tablet 20 mg PO QAM Rx Instructions: for RA morphine concentrate 100 mg/5 mL (20 mg/mL) solution 10 mg PO Q1H PRN (Reason: Pain) Solu-Medrol (PF) 125 mg/2 mL Recon Soln 62.5 mg IM QAM Rx Instructions: Start Date 02/12/24 x2 day supply. Discharge Orders: Discharge Order (Routine); Ordered 02/16/24 Ordered By: Ulises Vsos Admission Data Admit Date/Time: 02/12/24 12:19 Attending Provider: Austin Celestin Admit Provider: Emmett Burris Primary Care Provider: [facility] Other Providers: Tavia Garza Other Interventions: Discharge Summary Assessment (RN) Last Done: 02/16/24 14:11 Hospital Stay Data Consultations 02/12/24 12:26 Consult Palliative Care Routine Diagnostic Imagining Performed 02/12/24 09:57 CT abd pelvis wo con Stat CT chest diagnostic wo con Stat CT head/brain wo con Stat Pending Results Patient Have Any Pending Studies at Discharge: No Discharge Instructions Given to Patient (Per Discharging Provider) Patient manage 02/12/2024 with aspiration pneumonia and history of ESBL E. coli. Patient is undergoing course of ertapenem x 2 weeks. Her last dose is due 02/17/2024. She was seen in previous admission by telemetry infection control. Continue to follow those instructions. Patient had ongoing issues with some confusion during this hospital stay. Long discussion with patient's brother [place] and [id number] Kristine. They are the only surviving first-degree relatives at this point. Patient was never and has no children. Parents are . Patient met with palliative care during this hospital stay but was not able to make decisions and does not remember visit with that team. In discussion with patient's brother, they desire for consideration of hospice with no further returns to the hospital. I advised them that this would be discussed with the care team at [facility] on discharge. Patient has a chronic anemia which is most likely secondary to chronic disease. Previous peripheral smear showed no dysfunction in the bone marrow. No blood transfusion. Would just watch expectantly and symptomatically. Patient seen by speech pathology for aspiration. Recommending mouth care, no straws, easy to chew, thin liquids, aspiration and reflux precautions Speech recommends to defer repeat video swallow at this time Patient should continue ertapenem until last dose as previously mentioned. No need for Daptomycin Wean down prednisone to 15mg daily for 2 weeks, then go to 10mg daily x 2 weeks on 02/28 BPs normal and no need for stress steroids currently Continue Lyrica Takes oxycodone prn severe pain-ok to continue but has not required any doses in 3 days in the hospital Dcd Roxanol as this caused excessive sedation. Would only resume morphine if fully commits to comfort measures only/hospice Supervising Physician Co-Signing Physician Notes I personally examined the patient and verified all sawyer points of history and exam, discussed case, and agree with decision making with Avelino Voss PA-C Only real complaint is a cough. Vitals noted, in general she is in no distress. Breathing unlabored no accessory muscle use good effort. Skin without rashes pallor or icterus. Aspirationdoing better. For return to SNF. Recent ESBL UTI/sepsis/bacteremiafinishing out a course of ertapenem from prior infection. For return to SNF today. Otherwise as above. Total Time Total Time Spent Total Time Spent (In Minutes): 50 Coding Level of Care Code 21142 INP/OBS DISCH >30 MIN Diagnoses Aspiration pneumonia J69.0 Aspiration pneumonia type: unspecified Laterality: right Lung location: lower lobe of lung Chronic kidney disease, stage IV (severe) N18.4 Hypernatremia E87.0 Rheumatoid arthritis M06.9 Rheumatoid arthritis location: unspecified site Rheumatoid factor presence: unspecified presence ESBL (extended spectrum beta-lactamase) producing bacteria infection A49.9; Z16.12 Hyperglycemia R73.9 Anemia D64.9 Anemia type: unspecified type Left shoulder pain M25.512 HTN (hypertension) I10 Hypertension type: unspecified Wound of foot S91.309A Hypothyroidism E03.9 History of CVA (cerebrovascular accident) Z86.73 Sacral decubitus ulcer L89.159
--- NOTE | 2024-02-18 08:51 | Coding Query ---
PRESSURE ULCER DOCUMENTATION To promote full compliance with coding requirements relating to patient care, physician participation is requested in all cases of job training supervisor uncertainty. Please assist us with the question(s) below: 02/13 WOUND nurse evaluation: Left heel-stage 3 pressure injury Sacrum-unclassifiable Please specify the known or suspected type by placing an "X" within the parenthesis (x). A pressure ulcer of the LEFT HEEL If possible, please check the box that provides the specific stage of the pressure ulcer ( ) Stage I ( ) Stage II (x ) Stage III ( ) Stage IV ( ) Unstageable Was the pressure ulcer present on admission? Please check the appropriate box for the pressure ulcer: ( ) Present on admission ( ) Not present on admission x( ) Unable to be clinically determined (probably POA) A pressure ulcer of the SACRUM If possible, please check the box that provides the specific stage of the pressure ulcer ( ) Stage I ( ) Stage II ( ) Stage III ( ) Stage IV ( x) Unstageable Was the pressure ulcer present on admission? Please check the appropriate box for the pressure ulcer: ( ) Present on admission ( ) Not present on admission (x ) Unable to be clinically determined (probably POA) Thank you Linda CHAVEZ
== END 2024-02-16 14:40 | DRG 177 ==
LOC: ED 07:56 → SUATTDRO 12:19 → EDINP 12:19 → 2N 14:52